=== PATIENT | female | born 1945 | race Caucasian/White ===

== ENCOUNTER → 2021-04-23 15:11 | Outpatient (REF) | payer MEDICARE, OTHER, SELFPAY | LOC: ANHLAB 15:11 | PROVIDERS: Visit Provider Nurse Practitioner | DX: D36.7 Benign neoplasm of other specified sites (principal) | CPT/HCPCS: 88305 ==

== ENCOUNTER → 2021-11-15 11:16 | Outpatient (REF) | payer MEDICARE, OTHER, SELFPAY | LOC: ANHLAB 11:16 | PROVIDERS: Visit Provider Nurse Practitioner | DX: C44.319 Basal cell carcinoma of skin of other parts of face (principal) | CPT/HCPCS: 88305 ==

== ENCOUNTER → 2022-01-07 09:48 | Outpatient (REF) | payer MEDICARE, OTHER, SELFPAY | LOC: ANHLAB 09:48 | PROVIDERS: Visit Provider Nurse Practitioner | DX: C44.319 Basal cell carcinoma of skin of other parts of face (principal) | CPT/HCPCS: 88305; 88331 ==

== ENCOUNTER 2024-10-17 09:45 | Emergency (ER) | payer MEDICARE, OTHER, SELFPAY ==
--- NOTE | ~2024-10-17 | XR_ITS ---
EXAMINATION: XR chest 2V DATE: 10/17/2024 10:30 INDICATION: Upper respiratory infection. TECHNIQUE: Frontal and lateral views of the chest were obtained. COMPARISON: Chest 2 views 10/28/19 FINDINGS: There is no pneumonia, pleural effusion, or pneumothorax. The heart size is normal. IMPRESSION: 1. No acute cardiopulmonary disease. Reviewed, dictated and finalized at location A. RY EXTRACTION WORKER
[2024-10-17 09:49] VITALS: BP 118/78; PULSE 109; RESP 20; TEMP 36.6; O2SAT 95
[2024-10-17 11:07] VITALS: O2SAT 99
[2024-10-17 11:08] VITALS: BP 129/71; PULSE 88; RESP 17; O2SAT 98
[2024-10-17 11:27] LABS: Influenza A QL RT-PCR Negative (Negative); Influenza B QL RT-PCR Negative (Negative); RSV RNA, RT-PCR Negative (Negative); SARS-CoV-2 RNA PCR Negative (Negative)
--- NOTE | 2024-10-17 11:42 | ED.URI ---
HPI - URI/Sore Throat General Chief Complaint: Upper Respiratory Infection Stated Complaint: cough since Friday, Time Seen by Provider: 10/17/24 10:12 Limitations: language barrier History of Present Illness HPI Narrative: 78-year-old female presenting to the emergency department chief complaint of respiratory symptoms for last week. She states about Friday last week she started with a sore throat and nonproductive cough. She out throughout the week having worsening cough, congestion, runny nose. She went to her primary care provider on Friday was prescribed Tessalon Perles without any relief of her cough. She has tried conservative aokb-swm-jvlelbt remedies at home and was even prescribed Medrol Dosepak yesterday by her PCP but has not been able take it yet. She presents today with worsening symptoms and PCP sent her in for evaluation. Denies any shortness a breath or chest pain. No nausea or vomiting. No abdominal pain or back pain. No subjective fever chills. She was otherwise in her normal state of health week before last. Related Data Home Medications ?Medication ?Instructions ?Recorded ?Confirmed ?Last Taken ?Type cholecalciferol (vitamin D3) 25 1,000 unit PO DAILY 09/06/19 11/17/19 11/14/19 History mcg/drop (1,000 unit/drop) oral drops montelukast 10 mg tablet 10 mg PO HS 09/06/19 11/17/19 11/16/19 21:00 History omega-3 fatty acids 1,000 mg 1,000 mg PO HS 09/06/19 11/17/19 11/14/19 History capsule lactobacillus combination no.8 3 3,000 mmu cells PO DAILY 10/28/19 11/17/19 11/14/19 History billion cell capsule (Adult Probiotic) lisinopril 20 mg tablet 20 mg PO HS 10/28/19 11/17/19 11/16/19 21:00 History fexofenadine 60 mg tablet (Oly 60 mg PO Q12H 10/29/19 11/17/19 11/16/19 21:00 History Allergy) ipratropium bromide 21 mcg (0.03 2 spray intranasal ONCE 10/29/19 11/17/19 11/16/19 09:00 History %) nasal spray propylene glycol 0.6 % eye drops 1 drop ophthalmic (eye) DAILY PRN 10/29/19 11/17/19 11/16/19 21:00 History (Systane Balance) Dry Eye(S) brjlhwitgg-bcegszgkcejro-usqv PO PRN 11/15/21 Unknown History Allergies Allergy/AdvReac Type Severity Reaction Status Date / Time No Known Allergies Allergy Unknown Verified 10/17/24 09:52 Review of Systems Review of Systems: As reviewed above in HPI [facility] Past Medical History Medical History Overweight (BMI 25.0-29.9) Arthritis S/p right ELIUD 11/17/2019 Gastroesophageal reflux disease JUAN (obstructive sleep apnea) USES CPAP Dyslipidemia Hypertension AUG [address] CAMPOS 10/29/19 FOR HTN History of basal cell carcinoma (BCC) History of actinic keratoses History of basal cell carcinoma (BCC) of skin Surgical History Surgical History History of total right hip arthroplasty 11/17/2019 Family History Family History Other Family history of malignant neoplasm Social History Social History Smoking status: Unknown if ever smoked Alcohol intake: never Substance use: never Spiritual care concerns: No Agree to blood products: Yes Exam Narrative: GENERAL: [Well-appearing, well-nourished, and in no acute distress.] HEAD: [Normocephalic, atraumatic.] EYES: [PERRLA and EOMI.] ENT: Congested, mucous membranes are moist NECK: Supple. CHEST: [Clear to auscultation. No respiratory distress.] HEART: [Regular rate and rhythm]. No murmur heard. [Normal peripheral pulses.] ABDOMEN: [Soft, nondistended], [nontender], [No rigidity or guarding] EXTREMITIES: Normal range of motion. [No edema.] SKIN: Warm, dry, no rash. NEURO: [No focal deficits]. Alert and oriented [x3.] PSYCH: [Normal mood and affect.] Course Vital Signs Vital signs: Vital Signs Temperature 36.6 C 12/22/24 09:49 Pulse Rate 109 H 10/17/24 09:49 Respiratory Rate 20 10/17/24 09:49 Blood Pressure 118/78 10/17/24 09:49 Pulse Oximetry 95 10/17/24 09:49 Oxygen Delivery Room Air 10/17/24 09:49 Temperature 36.6 C 10/17/24 09:49 Pulse Rate 88 10/17/24 11:08 Respiratory Rate 17 10/17/24 11:08 Blood Pressure 129/71 10/17/24 11:08 Pulse Oximetry 98 10/17/24 11:08 Oxygen Delivery Room Air 10/17/24 11:07 MDM - URI/Sore Throat MDM Narrative Medical decision making narrative: 78-year-old female presenting with persistent URI symptoms for last week. She has tried conservative therapy with vcof-udt-bmyhdos regimens as well as prescription Tessalon Perles and a Medrol Dosepak which she was not able to start yesterday. PCP referred her to the ER for evaluation. She is not hypoxic, otherwise well-appearing on any acute distress but does have some congestion and rhinorrhea. Clear breath sounds throughout, suspicion for pneumonia is low however recent infections throughout the [place] an area consistent with mycoplasma as well as COVID flu influenza are on the rise. Her vital signs reassuring without any tachycardia, fever, hypoxia, tachypnea or blood pressure concerns. Her chest x-ray was independent reviewed I do not see any consolidations, pneumothorax or pneumonia. Confirmed by radiology with no acute cardiopulmonary process and her chest x-ray. COVID flu and RSV swabs were all negative. Given patient's persistent symptoms despite conservative therapies I believe she would benefit from a dose of antibiotics including azithromycin for the next few days in addition to treatments with pseudoephedrine. She is given Sudafed, 500 mg of p.o. azithromycin and Tylenol here in the emergency department will be sent home with a prescription for azithromycin and continued instructions for uzox-plr-nbdnioj remedies for cough suppression in addition to her prescribed medications from her PCP. Encouraged to follow-up with her PCP on a short-term basis or return with any new or worsening concerns at any time. Differential Diagnosis Differential diagnosis: Likely upper respiratory infection, sinusitis, viral infection, bronchitis, influenza, pharyngitis and other Medical Records Attestation: I reviewed the patient's medical records. Lab Data Attestation: I reviewed the patient's lab results. Labs: Lab Results 10/17/24 Range/Units 10:45 Influenza A (RT-PCR) Negative (Negative) Influenza B (RT-PCR) Negative (Negative) RSV (RT-PCR) Negative (Negative) SARS-CoV-2 RNA (RT-PCR) Negative (Negative) Imaging Data Attestation: I personally reviewed and interpreted this imaging study as follows: My impression: No consolidations, pneumonia, pneumothorax or any acute cardiopulmonary process per my interpretation Impressions Chest X-Ray 10/17/24 10:35 IMPRESSION: 1. No acute cardiopulmonary disease. Discharge Plan Discharge Clinical Impression: Bronchitis, Acute upper respiratory infection Patient Disposition: Home, Self-Care Condition: Stable Instructions: Antibiotic Form, Acute Bronchitis (ED), Viral Syndrome (ED), Cold Symptoms (ED) Additional Instructions: Your chest x-ray shows no pneumonia, your COVID fluid RSV swabs are negative. We will have to treat with antibiotics based on her symptoms and lack of improvement after a week. Continue taking your medications as prescribed by her primary care provider in addition to any duqq-pjz-qtrxuvy remedies for cough. We have sent you a prescription for antibiotics. Return with any new or worsening concerns otherwise follow-up with your regular provider. Patient Language: Chinese Prescriptions: New azithromycin [Zithromax TRI-CHAPITO] 500 mg tablet 500 mg PO DAILY 5 Days Qty: 5 0RF No Action montelukast 10 mg tablet 10 mg PO HS omega-3 fatty acids 1,000 mg capsule 1,000 mg PO HS cholecalciferol (vitamin D3) 1,000 unit/drop drops 1,000 unit PO DAILY fexofenadine [Oly Allergy] 60 mg tablet 60 mg PO Q12H ipratropium bromide 0.03 % spray,non-aerosol 2 spray NASAL ONCE Systane Balance 0.6 % drops 1 drop EACH EYE DAILY PRN (Reason: Dry Eye(S)) mlvfxecnah-xknxoqbanrqry-momn PO PRN lisinopril 20 mg Tablet 20 mg PO HS Adult Probiotic 3 billion cell Capsule 3,000 mmu cells PO DAILY polyethylene glycol 3350 [Miralax] 17 gram Powder In Packet 17 g PO QAM Qty: 30 0RF Follow-up/Referrals: PHYSICIAN NOT ON STAFF,NONSTAFF [Primary Care Provider] - Time of Disposition: 11:48
[2024-10-17] MEDS: AZITHROMYCIN 250 MG TABLET 500 MG PO (11:58)
[2024-10-17] MEDS: ACETAMINOPHEN 500 MG TABLET 1000 MG PO (11:58)
[2024-10-17] MEDS: PSEUDOEPHEDRINE HCL 30 MG TABLET PO (11:58)
--- OUTSIDE RECORDS SUMMARY | 2024-10-24 11:46 | XMS_ITS | Clinical Summary ---
Author Organization [facility] Address [address] [facility]. [place], [place] [address] [place] [address] Care Team Providers Care Scout Professional Sports Name Role Phone Joon Lewis Unavailable [phone] Callie Guerrero DO Unavailable [phone] George Osorio MD Unavailable Sergey Ramey Unavailable Jony Pruitt DPM Unavailable Gama Graves MD Unavailable [phone] Ella Hodge [facility] Primary Care Provider [phone] Allergies No known active allergies Medications omega-3 fatty acid 1000 MG capsule Take 1 capsule (1,000 mg total) by mouth 2 (two) times daily. Active vitamin D3, cholecalciferol, 75 MCG (3000 UT) Tab tablet Take 1,000 Units by mouth daily. Active cetirizine 10 MG tablet Take 1 tablet (10 mg total) by mouth daily. Active zinc gluconate 50 MG Tab Take 1 tablet (50 mg total) by mouth daily. Active NON FORMULARY C- pap ; q hs Active meloxicam (MOBIC) 15 MG tablet 4 Active rosuvastatin (CRESTOR) 20 MG tabletIndications:M ixed hyperlipidemia Take 1 tablet (20 mg total) by mouth nightly at bedtime. 90 tablet 3 4 Active lisinopril (PRINIVIL) 20 MG tabletIndications:E ssential hypertension Take 1 tablet (20 mg total) by mouth daily. 90 tablet 3 4 Active famotidine (PEPCID) 20 MG tabletIndications:G astroesophageal reflux disease without esophagitis Take 1 tablet (20 mg total) by mouth 2 (two) times daily. 180 tablet 3 4 Active montelukast (SINGULAIR) 10 MG tabletIndications:C hronic rhinitis Take 1 tablet (10 mg total) by mouth daily. 90 tablet 3 4 Active methylPREDNISolone, CHAPITO, (MEDROL DOSEPAK) 4 MG tabletIndications:V iral URI 6 TABLETS ON DAY ONE, 5 TABLETS DAY TWO, 4 TABLETS DAY THREE, 3 TABLETS DAY FOUR, 2 TABLETS DAY FIVE, AND 1 TABLET DAY SIX 1 each 4 Active Active Problems Problem Noted Date Diagnosed Date Cold intolerance 05/10/2023 History of migraine headaches 09/27/2021 Stage 3a chronic kidney disease ([facility] ) 09/27/2021 Basal cell carcinoma (BCC) of skin of face 06/14 Overview (06/14/2020): Goes to [facility] dermatology in [place] Breast cancer screening by mammogram 04/06/2020 Overview (04/06/2020): Completed 03/30/2020 Next mammogram in 03/2021 Primary osteoarthritis of right hip 02/11/2019 Heartburn 01/19/2019 Cystocele, lateral 02/25/2017 Overview (10/16/2018): Note: pessary replaced 02/04/17 by HEALTHCARE SCIENCE SPECIALIST Date Onset: 05/10/2013 Rectocele 02/25/2017 Overview (10/16/2018): Date Onset: 05/10/2013 Chronic rhinitis 06/18/2016 Overview (10/16/2018): Date Onset: 06/18/2016 Mixed hyperlipidemia 05/18/2012 Vitamin D deficiency 05/18/2012 Diverticula of intestine 12/06/2011 Overview (10/16/2018): Note: Ira: Diverticular Disease Date Onset: 11/2006 Obstructive sleep apnea 12/06/2011 Overview (10/16/2018): Note: [place]: Obstructive sleep apnea/hypopnea Treatment: C-PAP Date Onset: 2004 Osteopenia 12/06/2011 Overview (10/16/2018): Date Onset: 01/2008 Resolved Problems Problem Noted Date Diagnosed Date Resolved Date Bursitis of right hip, unspecified bursa 09/27/2021 05/10/2023 Enthesopathy of wrist 05/29/20212022 Premature menopause 05/10/2013 11/02/19 19 Overview (10/16/2018): Date Onset: 05/10/2013 Breast disorder 12/06/2011 01/19/2019 Overview (10/16/2018): Note: Left breast ADH/atypical duct hyperplasia treated with 5 yrs of Evista, completed in 2010 Date Onset: 02/04/2008 Urticaria 12/06/2011 01/20/2019 Overview (10/16/2018): Note: Tim Date Onset: 06/28/2010 Encounters Date Type Department Care Team Description 10/16/[address] [place] [address] Ella Hodge FNP Cough (Patient call public relations officer service due to cough) 10/12/2024 4:00 PM ENVIRONMENTAL REMEDIATION CONSULTANT Office Visit [address] [place] [address] Ella Hodge FNP Cough (Cough started yesterday, sometimes productive, post nasal drainage, chills, bodyaches) 10/12/2024 Travel 08/31/2024 1:20 PM ENVIRONMENTAL REMEDIATION CONSULTANT Office Visit [address] [place] [address] Ella Hodge, CEMENT CAR DUMPER Cough (Cough not improved. ) 08/31/2024 Travel 08/23/[address] [place] [address] Ella Hodge, CEMENT CAR DUMPER Follow Up Call 08/16/2024 9:00 AM CDT Office Visit [address] [place] [address] Ella Hodge, CEMENT CAR DUMPER Sinus Problem (Sinus drainage, worse in the mornings. No fevers. Was seen in office 08/07/24 for same problem. ) 08/16/2024 Travel 08/12/[address] [place] [address] Ella Hodge CEMENT CAR DUMPER Follow Up Call 08/07/2024 10:00 AM CDT Office Visit [address] [place] [address] Jia Leal, CEMENT CAR DUMPER Sore Throat; Runny Nose; Cough (Symptoms noted for 2 days. ) 08/07/2024 Travel 07/26/[address] [place] [address] Ella Hodge, CEMENT CAR DUMPER Medication from Last 3 Months Immunizations Name Administration Dates Next Due Fluad influenza vaccine, Dawson drivalent (aIIV4), Inactivated, adjuvanted, preservative free, 0.5 mL,IM use 08/25/2023,08/27/2021 Fluzone High Dose (IIV, trivalent, 0.5mL) 2023 Fluzone High Dose - >Age 65 (Prefilled Syringe) 07/27/2022 Influenza Adult (Generic) 08/27/2021 MODERNA COVID-19 (PORTER LUGGAGE NEVAEH DU), MRNA, LNP-S, PF, 50 MCG/ 0.25 ML DOSE 01/03/2022 PFIZER COVID-19 (ORIGINAL FO RMULATION, PURPLE CAP) mRNA, LNP-S, PF, 30 MCG/0.3 ML DOSE 11/10/2022 Pneumococcal (Generic) 06/12/2017 Pneumococcal (Pneumovax 23) 06/12/2017 Shingrix 02/06/2022,09/13/2021 Tdap (Boostrix) 12/12/2015 Family History Medical History Relation Comments Colon Cancer Brother 1 Migraines Daughter TIA Mother Breast Cancer Neg Hx Relation Status Comments Brother 1 Brother 2 Alive Daughter Father Mother Social History Tobacco Use Types Packs/Day Years Used Date Smoking Tobacco: Never Smokeless Tobacco: Never Tobacco Cessation:Counseling Given: No Alcohol Use Standard Drinks/Week Comments No 0 (1 standard drink = 0.6 oz pur e alcohol) AUDIT-C Answer Date Recorded Frequency of Alcohol Consumption Never 10/14/2019 Average Number of Drinks Not on file 019 Frequency of Binge Drinking Not on file 09/26 PHQ-2 Answer Date Recorded Patient Health Questionnaire-2 Score 0 06/22/2024 Comments No Sex and Gender Information Value Date Recorded Sex Assigned at Not on file Legal Sex Female 5:51 PM CDT Gender Identity Not on file Sexual Orientation Not on file Last Filed Vital Signs Vital Sign Reading Time Taken Comments Blood Pressure 118/64 10/12/2024 4:00 PM ENVIRONMENTAL REMEDIATION CONSULTANT Pulse 87 10/12/2024 4:00 PM ENVIRONMENTAL REMEDIATION CONSULTANT Temperature 37.1 ??C (98.8 ??F) 10/12/2024 4:00 PM CS T Respiratory Rate 16 08/31/2024 1:20 PM ENVIRONMENTAL REMEDIATION CONSULTANT Oxygen Saturation 97% 10/12/2024 4:00 PM ENVIRONMENTAL REMEDIATION CONSULTANT Inhaled Oxygen Concentration - - Weight 64.4 kg (142 lb) 10/12/2024 4:00 PM ENVIRONMENTAL REMEDIATION CONSULTANT Height 152.4 cm (5') 10/12/2024 4:00 PM ENVIRONMENTAL REMEDIATION CONSULTANT Body Mass Index 27.73 10/12/2024 4:00 PM ENVIRONMENTAL REMEDIATION CONSULTANT Plan of Treatment Upcoming Encounters Date Type Department Care Team (Late st Contact Info) Description 11/02/2024 8:00 AM ENVIRONMENTAL REMEDIATION CONSULTANT Office Visit [facility] [address] [place] [address] Ella Hodge, [place] [address] [place] [address] 01/19/2025 11:00 AM CDT Office Visit [facility] Pul[facility] - [address] [place] [address] Stanley Jim MD [address] [place] [address] 06/23/2025 8:20 AM CDT Office Visit [facility] [address] [place] [address] Ella Hodge, [facility] [address] [place] [address] Health Maintenance Due Date Last Done Comments Pneumococcal Vaccine: 65+ Years (2 of 2 - PCV) 06/12/2018 06/12/2017 RSV Immunization or 60+ Years (1 - 1-dose 75+ series) 2018 Annual Medicare Wellness Visit 06/15/2022 06/14/2021 COVID-19 Vaccine (2023- season) 2024 11/10/2022, 11/04/2022, 01/03/2022, Additional history exists DTaP, Tdap and Td Vaccines (2 - Td or Tdap) 12/12/2025 12/12/2015 Dexa Scan (General) Completed 11/04/2018 Zoster Vaccines Completed 02/06/2022, 09/13/2021 Influenza Adult Completed 08/31/2024, 07/29, 07/27/2022, Additional history exists Meningococcal Vaccine Aged Out No leslie topher eligible based on patient's age to complete this topic RSV Immunizations Under 20 Months Aged Out No longer eligible based on patient's age to complete this topic Procedures Procedure Name Priority Date/Time Associated Diagnosis Comments CORONAVIRUS (COVID-19) INFLUENZA A & B ANTIGEN IA PANEL Routine 10/12/2024 Acute cough CORONAVIRUS (COVID-19) INFLUENZA A & B ANTIGEN IA PANEL Routine 08/07/2024 Viral URI with cough BONE DENSITY GENERIC (SCAN ORDER) Routine 11/04/2018 from Last 3 Months or Most Recently Relevant to Health Maintenance Results * CORONAVIRUS (COVID-19) INFLUENZA A & B ANTIGEN IA PANEL (10/12/2024) Only the most recent of2 resultswithin the time period is included. CORONAVIRUS ANTIGEN IA NEGATIVE NEGATIVE [facility] (201), [place] INFLUENZA A NEGATIVE NEGATIVE [facility] (201), [place] INFLUENZA B NEGATIVE NEGATIVE [facility] ([facility]), [place] Internal Control: VALID VALID [facility] (201), [place] NASAL STRUCTURE / Unknown 10/12/2024 Ella Hodge CEMENT CAR DUMPER MICROBIOLOGY - GENERAL OR DERABLES Final Result [facility] (201), [address] [address], * BONE DENSITY (11/04/2018) Anatomical Region Laterality Modality Other us Documents Scanned SCANNING Edited Result - Final from Last 3 Months or Most Recently Relevant to Health Maintenance Insurance MEDICARE [facility] Advance Directives Documents on File Type Date Recorded Patient Brake Repairer Hydraulic Expl anation Advance Directives and Living Will 09/28/2021 3:13 PM Advance Directive (Activated) 09/28/2021 3:10 PM POA for Health Care Care Teams Scout Professional Sports Relationship Specialty Start Date End Date Ella Hodge FNP [address] [place] [address] [place] [address] PCP - General NURSE PRACTITIONER 05/09/23 Joon Lewis PA PHYSICIAN TUBE MILL OPERATOR 05/09/21 Callie Guerrero DO Art Studio Teacher OBGYN 06/14/21 [place] [id number] [phone] GASTROENTEROLOGY 06/14/21 Sergey Ramey PA [address] [place] [address] [place] [address] PHYSICIAN TUBE MILL OPERATOR 06/14/21 Jony Pruitt DPM [address] [place] [address], [address] [place] [address] Referring Physician PODIATRY/SURGERY 06/14/21 [place] [address] [place] [address] ORTHOPAEDIC SURGERY 06/14/21
--- OUTSIDE RECORDS SUMMARY | 2024-10-24 11:48 | XMS_ITS | Encounter Summary ---
Author Organization [facility] Address [facility]. [place], [place] [id number] [place] [address] Care Team Providers Care Pearl Digger Name Role Phone Joon Lewis Unavailable [phone] Callie Guerrero DO Unavailable [phone] George Osorio MD Unavailable Sergey Ramey Unavailable [phone] Jony Pruitt DPM Unavailable [phone] Gama Graves MD Unavailable [phone] Ella Hodge STUDENT DEVELOPMENT DEAN Primary Care Provider [phone] Encounter Details Date Type Department Care Team (Latest Contact Info) Description 10/12/2024 Travel Social History Tobacco Use Types Packs/Day Years Used Date Smoking Tobacco: Never Smokeless Tobacco: Never Alcohol Use Standard Drinks/Week Comments No 0 [...] on file Sexual Orientation Not on file documented as of this encounter Plan of Treatment Upcoming Encounters Date Type Department Care Team (Late st Contact Info) Description 11/02/2024 8:00 AM CONSULTING SYSTEMS ENGINEER Office Visit [address] [place] [address] Ella Hodge FNP [address] [place] [address] 01/19/2025 11:00 AM CDT Office Visit [facility] Pul[facility] Specialty [facility] - [place] [address] [place] [address] Stanley Jim MD [address] [place] [address] 06/23/2025 8:20 AM CDT Office Visit [address] [place] [address] Ella Hodge FNP [address] [place] [address] documented as of this encounter Visit Diagnoses Not on filedocumented in this encounter Additional Health Concerns Infection Onset Date Last Indicated Resolved Time COVID-19 Rule Out 10/12/2024 10/12/2024 10/14/2024 2:16 PM CONSULTING SYSTEMS ENGINEER Assessment Noted Time PHQ-9 Depression Total Score: 0 05/09/20 10:49 AM CDT documented as of this encounter Care Teams Pearl Digger Relationship Specialty Start Date End Date Ella Hodge FNP [address] [place] [address] PCP - General NURSE PRACTITIONER 05/09/23 Joon Lewis PA PHYSICIAN IRON PILER 05/09/21 Callie Guerrero DO Dobby Loom Fixer OBGYN 06/14/21 [place] [address] [address] GASTROENTEROLOGY 06/14/21 Sergey Ramey PA [address] [place] [address] PHYSICIAN IRON PILER 06/14/[address] [facility], [address] [place] [address] Referring Physician PODIATRY/SURGERY 06/14/21 [place] [address] [place] [address] ORTHOPAEDIC SURGERY 06/14/21 documented as of this encounter
--- OUTSIDE RECORDS SUMMARY | 2024-10-24 11:48 | XMS_ITS | Encounter Summary ---
Author Organization [facility] Address [facility]. [place], [place] [address] [place] [address] Care Team Providers Care Dairy Manufacturing Technologist Name Role Phone Joon Lewis Unavailable [phone] Callie Guerrero DO Unavailable [phone] George Osorio MD Unavailable Sergey Ramey Unavailable Jony Pruitt DPArthur Unavailable Gama Graves MD Unavailable [phone] Ella Hodge [facility] Primary Care Provider [phone] Reason for Visit * Reason Comments Cough Cough not improved. Encounter Details Date Type Department Care Team (Late st Contact Info) Description 08/31/2024 1:20 PM STEEPING PRESS TENDER Office Visit [address] [place] [address] [facility] [address] [place] [address] Cough (Cough not improved. ) Social History Tobacco Use Types Packs/Day Years [...] on file documented as of this encounter Last Filed Vital Signs Vital Sign Reading Time Taken Comments Blood Pressure 143/70 08/31/2024 1:20 PM STEEPING PRESS TENDER Pulse 82 08/31/2024 1:20 PM STEEPING PRESS TENDER Temperature 37.3 ??C (99.1 ??F) 08/31/2024 1:20 PM CS T Respiratory Rate 16 08/31/2024 1:20 PM STEEPING PRESS TENDER Oxygen Saturation 99% 08/31/2024 1:20 PM STEEPING PRESS TENDER Inhaled Oxygen Concentration - - Weight 65.3 kg (144 lb) 08/31/2024 1:20 PM STEEPING PRESS TENDER Height 152.4 cm (5') 08/31/2024 1:20 PM STEEPING PRESS TENDER Body Mass Index 28.12 08/31/2024 1:20 PM STEEPING PRESS TENDER documented in this encounter Patient Instructions * Patient Instructions* THEODORA Head - 08/31/2024 1:20 PM STEEPING PRESS TENDER Consider RSV (Arexvy) and Pneumonia (Prevnar 20) vaccines. You may get these vaccines at local pharmacy or health department. Follow up with dentist as planned. Schedule colonoscopy. PING PRESS TENDER * Attachments The following attachments cannot be sent through Care Everywhere. * Pneumococcal Conjugate (PCV) Vaccine CDC Vaccine Information Statement (VIS) ([place]) * RSV (Respiratory Syncytial Virus) Vaccine CDC Vaccine Information Statement (VIS) ([place]) documented in this encounter Progress Notes * THEODORA Head - 08/31/2024 1:20 PM CST Love Catherine is a 78-year-old female patient. Reason for Visit: Cough (Cough not improved. ) History of Present Illness: Here to follow up for recent URI. She states she is feeling much better today. Cough has resolved. Dental pain has resolved. She is not having any fever. She states she has some dental sensitivity and recently had a filling to left upper side. States she did not require root canal. She states dentist told her to use sensodyne which has helped. Also questions if she needs to continue with colonoscopy. She is due for colonoscopy due to historyof colon polyps, GI recommends them every 2-3 years for her. She states she always needs polyps removed. Her biggest issue with colonoscopy is the preparation, she has difficulty tolerating the prep. She would like flu vaccine. ROS: Except as noted in HPI, 10 point review of systems was completed and otherwise unremarkable or noncontributory to chief complaint. Medications: Current Outpatient Medications: cetirizine 10 MG tablet, Take 1 tablet (10 mg total) by mouth daily., Disp: , Rfl: famotidine (PEPCID) 20 MG tablet, Take 1 tablet (20 mg total) by mouth 2 (two) times daily., Disp: 180 tablet, Rfl: 3 lisinopril (PRINIVIL) 20 MG tablet, Take 1 tablet (20 mg total) by mouth daily., Disp: 90 tablet, Rfl: 3 meloxicam (MOBIC) 15 MG tablet, , Disp: , Rfl: montelukast (SINGULAIR) 10 MG tablet, Take 1 tablet (10 mg total) by mouth daily., Disp: 90 tablet,Rfl: 3 NON FORMULARY, C- pap ; q hs, Disp: , Rfl: omega-3 fatty acid 1000 MG capsule, Take 1 capsule (1,000 mg total) by mouth 2 (two) times daily., Disp: , Rfl: rosuvastatin (CRESTOR) 20 MG tablet, Take 1 tablet (20 mg total) by mouth nightly at bedtime., Disp: 90 tablet, Rfl: 3 vitamin D3, cholecalciferol, 75 MCG (3000 UT) Tab tablet, Take 1,000 Units by mouth daily., Disp: ,Rfl: zinc gluconate 50 MG Tab, Take 1 tablet (50 mg total) by mouth daily., Disp: , Rfl: Review of patient's allergies indicates: No Known Allergies Past Medical History: Diagnosis Date Allergic rhinitis Bursitis of right hip, unspecified bursa 09/27/2021 Enthesopathy of wrist 05/29/2021 Heartburn Hip pain Hypertension Past Surgical History: Procedure Laterality Date BREAST BIOPSY COLONOSCOPY STOMA DX INCLUDING COLLJ SPEC SPX FOOT SURGERY Left 03/14/2021 dr jony pruitt THROAT SURGERY PROCEDURE UNLISTED TOTAL HIP ARTHROPLASTY Right 11/17/2019 Social History Tobacco Use Smoking status: Never Smokeless tobacco: Never Vaping Use Vaping status: Never Used Substance Use Topics Alcohol use: No Drug use: No Family History Problem Relation Name Age of Onset Other (TIA) Mother Colon Cancer Brother Migraines Daughter Breast Cancer Neg Hx Family Status Relation Name Status Mother Father Brother Brother Alive Daughter (Not Specified) Neg Hx (Not Specified) No partnership data on file Filed Vitals: 08/31/24 1320 BP: (!) 143/70 Pulse: 82 Resp: 16 Temp: 99.1 ??F (37.3 ??C) TempSrc: Tympanic SpO2: 99% Weight: 65.3 kg (144 lb) Height: 1.524 m (5') Body mass index is 28.12 kg/m??. Physical Exam: Physical Exam Constitutional: Appearance: Normal appearance. She is not ill-appearing. HENT: Head: Normocephalic. Right Ear: Tympanic membrane, ear canal and external ear normal. Left Ear: Tympanic membrane, ear canal and external ear normal. Mouth/Throat: Mouth: Mucous membranes are moist. Cardiovascular: Rate and Rhythm: Normal rate and regular rhythm. Heart sounds: Normal heart sounds. Pulmonary: Effort: Pulmonary effort is normal. Breath sounds: Normal breath sounds. Skin: General: Skin is warm and dry. Neurological: General: No focal deficit present. Mental Status: She is alert and oriented to person, place, and time. Psychiatric: Mood and Affect: Mood normal. Behavior: Behavior normal. Thought Content: Thought content normal. Judgment: Judgment normal. Diagnoses/Impression: Encounter Diagnose(s) ICD-10-CM SNOMED CT(R) 1. Sinusitis, unspecified chronicity, unspecified location Resolved J32.9 SINUSITIS 2. Need for immunization against influenza Z23 NEEDS INFLUENZA IMMUNIZATION [96993] Flu Vaccine, Split Virus, High Dose 65+ Years 3. History of colon polyps Z86.0100 HISTORY OF POLYP OF COLON 4. Pain, dental Resolved K08.89 TOOTHACHE Recommendations and Plan: sinus and dental symptoms are resolved with treatment. We discussed life expectancy and need for additional colonoscopy. She is a very active 78 year old and discussed she likely has a higher life expectancy than average. Discussed risks related to reoccurring colon polypsand cancer. She states she will likely complete colonoscopy in early 2024. Discussed need for flu vaccine. Patient Instructions Consider RSV (Arexvy) and Pneumonia (Prevnar 20) vaccines. You may get these vaccines at local pharmacy or health department. Follow up with dentist as planned. Schedule colonoscopy. THEODORA HEAD Cosigned by Ziggy Harding MD at 09/02/2024 8:56 AM STEEPING PRESS TENDER PING PRESS TENDER PING PRESS TENDER documented in this encounter Plan of Treatment Upcoming Encounters Date Type Department Care Team (Late st Contact Info) Description 11/02/2024 8:00 AM STEEPING PRESS TENDER Office Visit [address] [place] [address] Ella Hodge FNP 201 [facility] [place] [address] 01/19/2025 11:00 AM CDT Office Visit [facility] [address] [place] [address] Stanley Jim MD [address] [place] [address] 06/23/2025 8:20 AM CDT Office Visit [address] [place] [address] Ella Hodge FNP [address] [facility] [place] [address] documented as of this encounter Visit Diagnoses Diagnosis Sinusitis, unspecified chronicity, unspecified location- Primary Need for immunization against influenza Need for prophylactic vaccination and inoculation against influenza History of colon polyps Personal history of colonic polyps Pain, dental Unspecified disorder of the teeth and supporting structures documented in this encounter Additional Health Concerns Assessment Noted Time PHQ-9 Depression Total Score: 0 05/09/20 23 10:49 AM CDT documented as of this encounter Care Teams Dairy Manufacturing Technologist Relationship Specialty Start Date End Date Ella Hodge FNP [facility] [place] [address] PCP - General NURSE PRACTITIONER 05/09/23 Joon Lewis PA PHYSICIAN VICE PRESIDENT PROCESS 05/09/21 Callie Guerrero DO Hydroelectric Machinery Mechanic Helper OBGYN 06/14/21 [place] [address] [phone] GASTROENTEROLOGY 06/14/21 Sergey Ramey PA [address] [place] [address] [place] [address] PHYSICIAN VICE PRESIDENT PROCESS 06/14/21 Jony Pruitt DPM [address] [place] [address], [address] [place] [address] Referring Physician PODIATRY/SURGERY 06/14/21 [place] [address] [place], [place] [id number] ORTHOPAEDIC SURGERY 06/14/21 documented as of this encounter
--- OUTSIDE RECORDS SUMMARY | 2024-10-24 11:48 | XMS_ITS | Encounter Summary ---
Author Organization [facility] Address [facility]6 [facility]. [place], [place] [address] [place] [address] Care Team Providers Care Battery Tester And Repairer Name Role Phone Joon Lewis Unavailable [phone] Callie Guerrero DO Unavailable [phone] George Osroio MD Unavailable Sergey Ramey Unavailable [phone] Jony Pruitt DPM Unavailable [phone] Gama Graves MD Unavailable [phone] [facility] Primary Care Provider [phone] Reason for Visit * Reason Comments Sore Throat Runny Nose Cough Symptoms noted for 2 days. Encounter Details Date Type Department Care Team (Late st Contact Info) Description 08/07/2024 10:00 AM CDT Office Visit [address] [place] [address] Jia Leal, [place] [address] [place] [address] Sore Throat; Runny Nose; Cough (Symptoms noted for 2 days. ) Social History Tobacco Use Types Packs/Day [...] Sign Reading Time Taken Comments Blood Pressure 123/66 08/07/2024 9:59 AM CDT Pulse 78 08/07/2024 9:59 AM CDT Temperature 36.9 ??C (98.4 ??F) 08/07/2024 9:59 AM CD T Respiratory Rate 16 08/07/2024 9:59 AM CDT Oxygen Saturation 99% 08/07/2024 9:59 AM CDT Inhaled Oxygen Concentration - - Weight 64.4 kg (142 lb) 08/07/2024 9:59 AM CDT Height 152.4 cm (5') 08/07/2024 9:59 AM CDT Body Mass Index 27.73 08/07/2024 9:59 AM CDT documented in this encounter Patient Instructions * Patient Instructions* THEODORA Diaz - 08/07/2024 10:00 AM CDT Get plenty of rest. Increase fluid intake Use plain Mucinex as needed for cough and congestion Take OTC tylenol as needed as directed for fever/ aches. Call in a few days if not improving or if any new or worsening symptoms develop documented in this encounter Progress Notes * THEODORA Diaz - 08/07/2024 10:00 AM CDT Love is a 78-year-old female patient. Reason for Visit: Sore Throat, Runny Nose, and Cough (Symptoms noted for 2 days. ) History of Present Illness: Rosario molina is an 78-year-old female patient here for URI symptoms Onset 2 days ago with sore throat, congestion, cough and clear nasal drainage. Denies having any fever chills or bodyaches. No shortness of breath weakness or chest pain. No GI symptoms. She has not taken anything for symptom relief. She wanted to make sure she does not have COVID because she will be around her young grandson. Past Medical History: Diagnosis Date Allergic rhinitis Bursitis of right hip, unspecified bursa 09/27/2021 Enthesopathy of wrist 05/29/2021 Heartburn Hip pain Hypertension Past Surgical History: Procedure Laterality Date BREAST BIOPSY COLONOSCOPY STOMA DX INCLUDING COLLJ SPEC SPX FOOT SURGERY Left 03/14/2021 dr jony pruitt THROAT SURGERY PROCEDURE UNLISTED TOTAL HIP ARTHROPLASTY Right 11/17/2019 Medications: Current Outpatient Medications: cetirizine 10 MG [...] total) by mouth daily., Disp: , Rfl: IPRATROPIUM 0.03 % nasal spray, USE 2 SPRAYS INTO EACH NOSTRIL EVERY 12 HOURS (Patient not taking: Reported on 08/07/2024), Disp: 30 mL, Rfl: 0 No Known Allergies Family History Problem Relation Name Age of Onset Other (TIA) Mother Colon Cancer Brother Migraines Daughter Breast Cancer Neg Hx Family Status Relation Name Status Mother Father Brother Brother Alive Daughter (Not Specified) Neg Hx (Not Specified) No partnership data on file Social History Socioeconomic History Marital status: Tobacco Use Smoking status: Never Smokeless tobacco: Never Vaping Use Vaping status: Never Used Substance and Sexual Activity Alcohol use: No Drug use: No ROS: Review of Systems Constitutional: Negative for chills, fever and malaise/fatigue. HENT: Positive for congestion and sore throat. Clear nasal drainage Respiratory: Positive for cough. Negative for sputum production, shortness of breath and wheezing. Cardiovascular: Negative for chest pain and orthopnea. Neurological: Negative for dizziness and headaches. Vitals: Filed Vitals: 08/07/24 0959 BP: 123/66 Pulse: 78 Resp: 16 Temp: 98.4 ??F (36.9 ??C) TempSrc: Tympanic SpO2: 99% Weight: 64.4 kg (142 lb) Height: 1.524 m (5') Physical Exam Constitutional: Comments: Elderly female patient in no distress HENT: Head: Normocephalic and atraumatic. Right Ear: Tympanic membrane, ear canal and external ear normal. Left Ear: Tympanic membrane, ear canal and external ear normal. Nose: Congestion and rhinorrhea (Clear nasal drainage present) present. Mouth/Throat: Mouth: Mucous membranes are moist. Pharynx: Oropharynx is clear. Eyes: Conjunctiva/sclera: Conjunctivae normal. Cardiovascular: Rate and Rhythm: Normal rate and regular rhythm. Pulmonary: Effort: Pulmonary effort is normal. Breath sounds: Normal breath sounds. Musculoskeletal: Cervical back: Neck supple. Skin: General: Skin is warm and dry. Neurological: Mental Status: She is alert and oriented to person, place, and time. Psychiatric: Mood and Affect: Mood normal. Results: Covid negative Influenza negative Diagnoses/Impression: Encounter Diagnose(s) ICD-10-CM SNOMED CT(R) 1. Viral URI with cough J06.9 VIRAL UPPER RESPIRATORY TRACT INFECTION CORONAVIRUS (COVID-19) INFLUENZA A & B ANTIGEN IA PANEL Plan Orders Placed: Orders Placed This Encounter CORONAVIRUS (COVID-19) INFLUENZA A & B ANTIGEN IA PANEL COVID and flu testing negative Discussed symptomatic treatment of viral URI. Push oral fluids and rest Tylenol as needed for achiness, headache, if fever develops Mucinex/Robitussin as needed for cough and congestion Call back if any new or worsening symptoms develop Instructions Patient Instructions Get plenty of rest. Increase fluid intake Use plain Mucinex as needed for cough and congestion Take OTC tylenol as needed as directed for fever/ aches. Call in a few days if not improving or if any new or worsening symptoms develop THEODORA DIAZ 08/07/2024 10:02 AM documented in this encounter Plan of Treatment Upcoming Encounters Date Type Department Care Team (Late st Contact Info) Description 11/02/2024 8:00 AM ENGINE INSPECTOR Office Visit [address] [place] [address] Ella Hodge FNP [address] [place] [address] [place] [address] 01/19/2025 11:00 AM CDT Office Visit [facility] [address] [place] [address] Stanley Jim MD [address] [place] [address] 06/23/2025 8:20 AM CDT Office Visit [address] [place] [address] Ella Hodge FNP [address] [place] [address] [place] [address] documented as of this encounter Procedures Procedure Name Priority Date/Time Associated Diagnosis Comments CORONAVIRUS (COVID-19) INFLUENZA A & B ANTIGEN IA PANEL Routine 08/07/2024 Viral URI with cough documented in this encounter Results * CORONAVIRUS (COVID-19) INFLUENZA A & B ANTIGEN IA PANEL (08/07/2024) CORONAVIRUS ANTIGEN IA NEGATIVE NEGATIVE [facility] (201), [place] INFLUENZA A NEGATIVE NEGATIVE [facility] (201), [place] INFLUENZA B NEGATIVE NEGATIVE [facility] (201), [place] Internal Control: VALID VALID [facility] (201), [place] NASAL STRUCTURE / Unknown 08/07/2024 us Jia GORMANP MICROBIOLOGY - GENERAL ORDERA BLES Final Result [facility] (), [place] [address], documented in this encounter Visit Diagnoses Diagnosis Viral URI with cough- Primary Acute upper respiratory infections of unspecified site documented in this encounter Additional Health Concerns Infection Onset Date Last Indicated Resolved Time COVID-19 Rule Out 08/07/2024 08/07/2024 08/09/2024 9:34 AM CDT Assessment Noted Time PHQ-9 Depression Total Score: 0 05/09/20 23 10:49 AM CDT documented as of this encounter Care Teams Battery Tester And Repairer Relationship Specialty Start Date End Date Ella Hodge FNP [address] [place] [address] PCP - General NURSE PRACTITIONER 05/09/23 Joon Lewis PA PHYSICIAN SHEETFED PRESS OPERATOR 05/09/21 Callie Guerrero DO Furnace Setter OBGYN 06/14/21 [place] [address] [id number] GASTROENTEROLOGY 06/14/21 Sergey Ramey PA [address] [place] [address] [place] [address] PHYSICIAN SHEETFED PRESS OPERATOR 06/14/21 Jony Pruitt DPM [address] [place] [address], [address] [place] [address] Referring Physician PODIATRY/SURGERY 06/14/21 [place] [address] [place] [address] ORTHOPAEDIC SURGERY 06/14/21 documented as of this encounter
--- OUTSIDE RECORDS SUMMARY | 2024-10-24 11:48 | XMS_ITS | Encounter Summary ---
Author Organization [facility] Address [facility]. [place], [place] [address] [place] [address] Care Team Providers Care Security Police Name Role Phone Joon Lewis Unavailable [phone] Callie Guerrero DO Unavailable [phone] George Osorio MD Unavailable Sergey Ramey Unavailable [phone] Jony Pruitt DPM Unavailable [phone] Gama Graves MD Unavailable [phone] Ella Hodge PHOTOGRAPHIC EDITOR Primary Care Provider [phone] Encounter Details Date Type Department Care Team (Latest Contact Info) Description 08/07/2024 Travel Social History Tobacco Use Types Packs/Day [...] st Contact Info) Description 11/02/2024 8:00 AM CONSUMER LOAN SPECIALIST Office Visit [address] [place] [address] Ella Hodge FNP 201 [facility] [place] [address] 01/19/2025 11:00 AM CDT Office Visit [facility] [place] [address] [facility] [place] [address] Stanley Jim MD [address] [place] [address] 06/23/2025 8:20 AM CDT Office Visit [address] [place] [address] Ella Hodge FNP [address] [facility] [place] [address] documented as of this encounter Visit Diagnoses Not on filedocumented in this encounter Additional Health Concerns Infection Onset Date Last Indicated Resolved Time COVID-19 Rule Out 08/07/2024 08/07/2024 08/09/2024 9:34 AM CDT Assessment Noted Time PHQ-9 Depression Total Score: 0 05/09/20 10:49 AM CDT documented as of this encounter Care Teams Security Police Relationship Specialty Start Date End Date Ella Hodge FNP [address] [place] [address] PCP - General NURSE PRACTITIONER 05/09/23 Joon Lewis PA PHYSICIAN MASTER FIRE CONTROL TECHNICIAN 05/09/21 Callie Guerrero DO Chimney Mechanic OBGYN 06/14/21 [place] [address] Marco A Wiseman [address] [address] GASTROENTEROLOGY 06/14/21 Sergey Ramey PA [address] [place] [address] PHYSICIAN MASTER FIRE CONTROL TECHNICIAN 06/14/21 Jony Pruitt DPM [address] [place] [address], [address] [place] [address] Referring Physician PODIATRY/SURGERY 06/14/21 [place] [address] [place] [address] ORTHOPAEDIC SURGERY 06/14/21 documented as of this encounter
--- OUTSIDE RECORDS SUMMARY | 2024-10-24 11:48 | XMS_ITS | Encounter Summary ---
Author Organization [facility] Address [facility] [place], [place] [address] [place] [address] Care Team Providers Care Cotton Farmer Name Role Phone Joon Lewis Unavailable [phone] Callie Guerrero DO Unavailable [phone] George Osorio MD Unavailable Sergey Ramey Unavailable [phone] Jony Pruitt DPM Unavailable [phone] Gama Graves MD Unavailable [phone] Ella Hodge SUPERVISOR BELT AND LINK ASSEMBLY Primary Care Provider [phone] Encounter Details Date Type Department Care Team (Late st Contact Info) Description 06/24/2024 Orders Only [facility] [address] [place], [place] [id number] Dagmar Plunkett MA Social History Tobacco Use Types Packs/Day Years [...] st Contact Info) Description 11/02/2024 8:00 AM CARPENTER REPAIRER Office Visit [facility] [address] [facility] [place] [address] Ella Hodge FNP 201 [facility] [place] [address] 01/19/2025 11:00 AM CDT Office Visit [facility] Pul[facility]ology [facility]ty [facility] - [address] [place] [address] Stanley Jim MD [address] [place] [address] 06/23/2025 8:20 AM CDT Office Visit [facility] 201 [facility] [place] [address] Ella Hodge FNP [address] [place] [address] [place] [address] documented as of this encounter Results * IRON SAT PANEL (IRON,IBC,%SAT) (06/23/2024 7:57 AM CDT) IRON 71 50.0 - 170.0 MCG/DL 06/24/2024 3:28 PM CDT [facility] IRON BINDING CAPACITY 352 250 - 450 MCG/DL 06/24/2024 3:28 PM CDT [facility] IRON SATURATION 20 20 - 55 % 3:28 PM CDT [facility] 06/23/2024 7:57 AM CDT Ella Rodriguezrie SUPERVISOR BELT AND LINK ASSEMBLY LABORATORY Final Res ult Performing Organization Address City/[facility]/ZIP Co de Phone Number [facility] [address] [place] [address], * FERRITIN (06/23/2024 7:57 AM CDT) FERRITIN 95.7 8.0 - 388.0 NG/ML 06/24/2024 3:28 PM CDT [facility] 06/23/2024 7:57 AM CDT Ella A Naveen SUPERVISOR BELT AND LINK ASSEMBLY LABORATORY Final Res ult Performing Organization Address City/[facility] Co de Phone Number [facility] [address] [place] [address], documented in this encounter Visit Diagnoses Diagnosis Low hemoglobin- Primary Anemia, unspecified Abnormal laboratory test Other abnormal clinical finding documented in this encounter Additional Health Concerns Assessment Noted Time PHQ-9 Depression Total Score: 0 05/09/20 23 10:49 AM CDT documented as of this encounter Care Teams Cotton Farmer Relationship Specialty Start Date End Date Ella Hodge FNP [address] [place] [address] [place] [address] PCP - General NURSE PRACTITIONER 05/09/23 Joon Lewis PA PHYSICIAN PHARMACY HELPER 05/09/21 Callie Guerrero DO Garment Tag Stringer OBGYN 06/14/21 [place] [address] [address] GASTROENTEROLOGY 06/14/21 Sergey Ramey PA [address] [place] [address] [place] [address] PHYSICIAN PHARMACY HELPER 06/14/21 Jony Pruitt DPM [address] [place] [address], [address] [place] [address] Referring Physician PODIATRY/SURGERY 06/14/21 [place] [address] [place] [address] ORTHOPAEDIC SURGERY 06/14/21 documented as of this encounter
--- OUTSIDE RECORDS SUMMARY | 2024-10-24 11:48 | XMS_ITS | Encounter Summary ---
Author Organization [facility] Address [facility]. [place], [place] [address] [place] [address] Care Team Providers Care Retort Furnace Helper Name Role Phone Joon Lewis Unavailable [phone] Callie Guerrero DO Unavailable [phone] George Osorio MD Unavailable Sergey Ramey Unavailable Jony Pruitt DPM Unavailable [phone] Gama Graves MD Unavailable [phone] Ella Hodge [facility] Primary Care Provider [phone] Reason for Visit * Reason Onset Date Comments Follow Up Call 08/23/2024 Encounter Details Date Type Department Care Team (Late st Contact Info) Description 08/23/2024 Telephone [place] [address] [place] [address] Ella Hodge [facility] [address] [place] [address] Follow Up Call Social History Tobacco Use Types Packs/Day Years [...] on file documented as of this encounter Progress Notes * Julia العراقي LPN - 08/23/2024 4:14 PM CDT Pt aware and voiced understanding. * THEODORA Kendall - 08/23/2024 4:12 PM CDT Noted. For now rest and hydrate. She can be seen in the office for reevaluation at her convenience. * Cora Aguila - 08/23/2024 1:31 PM CDT Patient called said she did a at home covid test she said it was Negative please return her call * Julia العراقي LPN - 08/23/2024 12:50 PM CDT Pt aware and voiced understanding. Pt states had a tooth ache just 1 day. Pt has a Covid kit at home and will test self and call back with result. * THEODORA Kendall - 08/23/2024 10:40 AM CDT Sounds like she may have picked up a new illness. Has she been around any new sick people? I definitely don't want her driving if she doesn't feel well. I would have her focus on hydration today and rest. Does she continue to have dental pain? Is she able to test herself for COVID at home? * Julia العراقي LPN - 08/23/2024 9:49 AM CDT Pt called and left a message asking nurse return her call. Pt states she completed Medrol dose packand has a few days of antibiotics left. States was feeling better mid week but by croupy cough, sinus congestion with thick yellow sinus drainage, hasn't checked temp, but has been having chills and sweats. Pt hd sched a 10 am appt for f/u but stated she developed diarrhea x 2 this am and had blown her nose hard and got dizzy so she cancelled appt, didn't think she should drive herself to town for appt, in r she would get dizzy again. Pt stated only has had dizziness that one time since. Pt stated no chest congestion and no SOB. documented in this encounter Plan of Treatment Upcoming Encounters Date Type Department Care Team (Late st Contact Info) Description 11/02/2024 8:00 AM R D INTERN Office Visit [address] [place] [address] Ella Hodge FNP 201 [facility] [place] [address] 01/19/2025 11:00 AM CDT Office Visit [facility] [place] 200 [facility] [place] [address] Stanley Jim MD [address] [place] [address] 06/23/2025 8:20 AM CDT Office Visit [address] [place] [address] Ella Hodge FNP [address] [place] [address] documented as of this encounter Visit Diagnoses Not on filedocumented in this encounter Additional Health Concerns Assessment Noted Time PHQ-9 Depression Total Score: 0 05/09/20 10:49 AM CDT documented as of this encounter Care Teams Retort Furnace Helper Relationship Specialty Start Date End Date Ella Hodge FNP [address] [place] [address] PCP - General NURSE PRACTITIONER 05/09/23 Joon Lewis PA PHYSICIAN IT HELP DESK TECHNICIAN 05/09/21 Callie Guerrero DO [facility] 06/14/21 [place] [id number] [id number] GASTROENTEROLOGY 06/14/21 Sergey Ramey PA [address] [place] [address] [place] [address] PHYSICIAN IT HELP DESK TECHNICIAN 06/14/21 Jony Pruitt, DPM [facility]0 [facility], [address] [place] [address] Referring Physician PODIATRY/SURGERY 06/14/21 [place] [address] [place] [address] ORTHOPAEDIC SURGERY 06/14/21 documented as of this encounter
--- OUTSIDE RECORDS SUMMARY | 2024-10-24 11:48 | XMS_ITS | Encounter Summary ---
Author Organization [facility] Address [facility]6 [facility]. [place], [place] [address] [place] [address] Care Team Providers Care Campus Recruiting Internship Name Role Phone Joon Lewis Unavailable [phone] Callie Guerrero DO Unavailable [phone] George Osorio MD Unavailable Sergey Ramey Unavailable Jony Pruitt DPArthur Unavailable Gama Graves MD Unavailable [phone] Ella HodgeP Primary Care Provider [phone] Encounter Details Date Type Department Care Team (Late st Contact Info) Description 06/23/2024 7:55 AM CDT - 06/23/2024 11:59 PM CDT Hospital Encounter [facility] [address] [place], [place] [id number] Ella Hodge FNP [address] [place] [address] Discharge Disposition: Home or Self Care (Routine Discharge) Social History Tobacco Use Types Packs/Day Years [...] on file documented as of this encounter Medications at Time of Discharge cetirizine 10 MG tablet Take 1 tablet (10 mg total) by mouth daily. famotidine (PEPCID) 20 MG tabletIndications:Ga stroesophageal reflux disease without esophagitis Take 1 tablet (20 mg total) by mouth 2 (two) times daily. 180 tablet 3 06/22/2024 lisinopril (PRINIVIL) 20 MG tabletIndications:Es sential hypertension Take 1 tablet (20 mg total) by mouth daily. 90 tablet 3 06/22/2024 meloxicam (MOBIC) 15 MG tablet 06/21/2024 NON FORMULARY C- pap ; q hs omega-3 fatty acid 1000 MG capsule Take 1 capsule (1,000 mg total) by mouth 2 (two) times daily. rosuvastatin (CRESTOR) 20 MG tabletIndications:Mi xed hyperlipidemia Take 1 tablet (20 mg total) by mouth nightly at bedtime. 90 tablet 3 06/22/2024 vitamin D3, cholecalciferol, 75 MCG (3000 UT) Tab tablet Take 1,000 Units by mouth daily. zinc gluconate 50 MG Tab Take 1 tablet (50 mg total) by mouth daily. IPRATROPIUM 0.03 % nasal sprayIndications:Art al congestion USE 2 SPRAYS INTO EACH NOSTRIL EVERY 12 HOURS 30 mL 10/22/2021 4 montelukast (SINGULAIR) 10 MG tabletIndications:Ch ronic rhinitis take 1 tablet by mouth every day 90 tablet 1 01/28/2024 4 documented as of this encounter Plan of Treatment Upcoming Encounters Date Type Department Care Team (Late st Contact Info) Description 11/02/2024 8:00 AM CARRIAGE RIDER Office Visit [address] [place] [address] Ella Hodge [facility] 201 [facility] [place] [address] 01/19/2025 11:00 AM CDT Office Visit [facility] - [address] [place] [address] Stanley Jim MD [address] [place] [address] 06/23/2025 8:20 AM CDT Office Visit [facility] 201 [facility] [place] [address] Ella Hodge [facility] 201 [facility] [place] [address] documented as of this encounter Procedures Procedure Name Priority Date/Time Associated Diagnosis Comments IRON SAT PANEL (IRON,IBC,%SAT) Routine 06/23/2024 7:57 AM CDT Low hemoglobin VITAMIN B-12 Routine 06/23/2024 7:57 AM CDT Chronic fatigue COMPREHENSIVE METABOLIC PANEL Routine 06/23/2024 7:57 AM CDT Essential hypertension LIPID PANEL Routine 06/23/2024 7:57 AM CDT Mixed hyperlipidemia CBC W/DIFF AUTOMATED Routine 06/23/2024 7:57 AM CDT Essential hypertension THYROID STIM HORMONE TSH Routine 06/23/2024 7:57 AM CDT Chronic fatigue MAGNESIUM Routine 06/23/2024 7:57 AM CDT Chronic fatigue FERRITIN Routine 06/23/2024 7:57 AM CDT Low hemoglobin documented in this encounter Results * IRON SAT PANEL (IRON,IBC,%SAT) (06/23/2024 7:57 AM CDT) IRON 71 50.0 - 170.0 MCG/DL 06/24/2024 3:28 PM CDT [facility] IRON BINDING CAPACITY 352 250 - 450 MCG/DL 06/24/2024 3:28 PM CDT [facility] IRON SATURATION 20 20 - 55 % 3:28 PM CDT [facility] 06/23/2024 7:57 AM CDT [facility] LABORATORY Final Res ult Performing Organization Address [facility]/ZIP Co de Phone Number [facility] [address] [place] [address], [place] [phone] * FERRITIN (06/23/2024 7:57 AM CDT) FERRITIN 95.7 8.0 - 388.0 NG/ML 06/24/2024 3:28 PM CDT [facility] 06/23/2024 7:57 AM CDT [facility] LABORATORY Final Res ult Performing Organization Address City/[facility]/ZIP Co de Phone Number [facility] [address] [place] [address], [place] [phone] * MAGNESIUM (06/23/2024 7:57 AM CDT) MAGNESIUM 2.2 1.8 - 2.4 MG/DL 06/23/2024 9:05 AM CDT [facility] 06/23/2024 7:57 AM CDT us Ella Hodge [facility] Final Res ult [facility] [place] [facility] [address] [place] [address], * LIPID PANEL (06/23/2024 7:57 AM CDT) CHOLESTEROL 130 <200 MG/DL 06/23/2024 4:20 PM CDT [facility] TRIGLYCERIDES 61 <150 MG/DL 06/23/2024 4:20 PM CDT [facility] HDL 63 >40.0 MG/DL 06/23/2024 4:20 PM CDT [facility] LDL (CALCULATED) 55 <100 MG/DL 06/23/20 4:20 PM CDT [facility] NON HDL CHOLESTEROL 67 <130 MG/DL 06/23 4:20 PM CDT [facility] CHOL/HDL RATIO 2.1 0.0 - 4.5 06/23/2024 4:20 PM CDT [facility] VLDL CALCULATION 12 5 - 55 MG/DL 06/23/2024 4:20 PM CDT [facility] LIPID INTERPRETATION 06/23/2024 4:20 PM T [facility] Comment: NIH CONCENSUS REPORT RECOMMENDATIONS: ?ADULT ?CHILD ??LOW RISK: ?CHOLESTEROL ? <200 ? <170 ?TRIGLYCERIDE ?<150 ?--- ?HDL ? >=60 ?--- ?LDL ? <100 ? <110 ??BORDERLINE: ?CHOLESTEROL ? 200-239 ?? 170-199 ?TRIGLYCERIDE ?150-199 ? --- ?HDL ?40-59 ?--- ?LDL ? 100-159 ?? 110-129 ??HIGH RISK: ?CHOLESTEROL ? >=240 ?>=200 ?TRIGLYCERIDE ?>=200 ? --- ?HDL ?<40 ?--- ?LDL ? >=160 ?>=130 06/23/2024 7:57 AM CDT us Ella Hodge [facility] Final Res ult Performing Organization Address City/State/[facility] Co de Phone Number [facility] [address] [place] [address], * (ABNORMAL) CBC W/DIFF AUTOMATED (06/23/2024 7:57 AM CDT) Pathologist [facility] WBC 5.05 4.50 - 11.00 x10'3/uL 06/23/2024 8:07 AM CDT [facility] RBC 3.41(L) 4.00 - 5.20 x10'6/uL 06/23/2024 8:07 AM CDT [facility] HGB 10.6(L) 12.0 - 16.0 G/DL 06/23/2024 8:07 AM CDT [facility] HCT 32.1(L) 38.0 - 48.0 % 06/23/2024 8:07 AM CDT [facility] MCV 94.1 80.0 - 100.0 FL 06/23/2024 8:07 AM CDT [facility] MCH 31.1 26.0 - 34.0 PG 06/23/2024 8:07 AM CDT [facility] MCHC 33.0 31.0 - 37.0 G/DL 06/23/2024 8:07 AM CDT [facility] RDW 13.4 11.6 - 14.8 % 06/23/2024 8:07 AM CDT [facility] PLT 231 130 - 400 x10'3/uL 06/23/2024 8:07 AM CDT [facility] MPV 8.7 7.0 - 12.0 FL 06/23/2024 8:07 AM CDT [facility] CBC COMMENT AUTOMATED RBC MORPHOLOGY AND PLATELET EVALUATION NORMAL 06/23/2024 8:07 AM CDT [facility] NEUTROPHILS % 46.4 40.0 - 74.0 % 06/23/2024 8:07 AM CDT [facility] LYMPHOCYTES % 35.2 14.0 - 46.0 % 06/23/2024 8:07 AM CDT [facility] MONOCYTES % 11.3 4.0 - 13.0 % 06/23/2024 8:07 AM CDT [facility] EOSINOPHILS 6.1 0.0 - 7.0 % 06/23/2024 8:07 AM CDT [facility] BASOPHILS 0.8 0.0 - 3.0 % 06/23/2024 8:07 AM CDT [facility] IMMATURE GRANS % 0.2 0.0 - 0.43 % 06/23/2024 8:07 AM CDT [facility] NRBC % 0.0 % 06/23/2024 8:07 AM CDT [facility] ABS. NEUTROPHILS TOTAL 2.34 1.69 - 7.81 x10'3/uL 06/23/2024 8:07 AM CDT [facility] ABS. LYMPHOCYTES 1.78 0.21 - 5.42 x10'3/uL 06/23/2024 8:07 AM CDT [facility] ABS. MONOCYTES 0.57 0.04 - 1.37 x10'3/uL 06/23/2024 8:07 AM CDT [facility] ABS. EOSINOPHILS 0.31 0.00 - 0.68 x10'3/uL 06/23/2024 8:07 AM CDT [facility] ABS. BASOPHILS 0.04 0.00 - 0.08 x10'3/uL 06/23/2024 8:07 AM CDT [facility] ABS. IMMATURE GRANULOCYTES 0.01 0.00 - 0.06 x10'3/uL 06/23/2024 8:07 AM CDT [facility] ABS. NUCLEATED RBC'S 0.00 0.00 - 0.01 x10'3/uL 06/23/2024 8:07 AM CDT [facility] 06/23/2024 7:57 AM CDT us Ella Hodge [facility] Final Res ult [facility] [address] [facility] [place] [address], * (ABNORMAL) COMPREHENSIVE METABOLIC PANEL (06/23/2024 7:57 AM CDT) [facility] GLUCOSE 105(H) 70 - 99 MG/DL 06/23/2024 9:05 AM CDT [facility] BUN 22(H) 7 - 18 MG/DL 06/23/2024 9:05 AM CDT [facility] CREATININE S/P/B 1.08 0.50 - 1.20 MG/DL 06/23/2024 9:05 AM CDT [facility] SODIUM S/P/B 142 136 - 145 MMOL/L 06/23/2024 9:05 AM T [facility] POTASSIUM S/P/B 5.0 3.5 - 5.1 MMOL/L 06/23/2024 9:05 AM CDT [facility] CHLORIDE S/P/B 108 100 - 108 MMOL/L 06/23/2024 9:05 AM CDT [facility] CO2 25.0 21.0 - 32.0 MMOL/L 06/23/2024 9:05 AM T [facility] CALCIUM S/P/B 9.3 8.5 - 10.1 MG/DL 06/23/2024 9:05 AM T [facility] BILIRUBIN TOTAL S/P/B 0.5 0.2 - 1.2 MG/DL 06/23/2024 9:05 AM T [facility] Comment: THIS ASSAY IS NOT RECOMMENDED FOR PATIENTS UNDERGOING TREATMENT WITH ELTROMBOPAG DUE TO THE POTENTIAL FOR FALSELY ELEVATED RESULTS. TOTAL PROTEIN S/P/B 7.3 6.4 - 8.2 G/DL 06/23/2024 9:05 AM T [facility] ALBUMIN S/P/B 3.8 3.4 - 5.0 G/DL 06/23/2024 9:05 AM CDT [facility] AST 21 15 - 37 U/L 06/23/2024 9:05 AM T [facility] ALT 22 14 - 55 U/L 06/23/2024 9:05 AM T [facility] ALKALINE PHOSPHATASE S/P/B 54 50 - 136 U/L 06/23/2024 9:05 AM T [facility] ANION GAP 9.0 5.0 - 15.0 MMOL/L 06/23/2024 9:05 AM T [facility] BUN CREATININE RATIO 20.4 6 - 26 06/23/2024 9:05 AM CDT [facility] A/G RATIO 1.1 1.0 - 2.5 RATIO 06/23/2024 9:05 AM CDT [facility] GFR ESTIMATE 52(L) >90 ML/MIN/1.7 3 M2 06/23/2024 9:05 AM CDT [facility] Comment: NOTE: eGFR is not calculated for patients <18 years of age. This is an estimated GFR calculation using the new CKD EPI creatinine equation without race and so does not require a correction factor for race. This estimated GFR should not be used for calculating drug doses. 06/23/2024 7:57 AM CDT Ella Hodge [facility] LABORATORY Final Res ult Performing Organization Address City/[facility]/ZIP Co de Phone Number [facility] [address] [place] [address] [place] [address], [place] * (ABNORMAL) VITAMIN B-12 (06/23/2024 7:57 AM CDT) VITAMIN B12 S/P/B >6,000(H) 254 - 1,320 PG/ML 06/23/2024 4:20 PM CDT [facility] 06/23/2024 7:57 AM CDT [facility] Final Res ult [facility] [address] [place] [address], [place] [phone] * THYROID STIM HORMONE TSH (06/23/2024 7:57 AM CDT) TSH 1.240 0.358 - 3.74 uIU/ML 06/23/2024 4:20 PM CDT [facility] Comment: HIGH DOSES OF BIOTIN MAY INTERFERE WITH THIS TEST RESULT. CORRELATION TO CLINICAL HISTORY AND PRESENTATION RECOMMENDED. 06/23/2024 7:57 AM CDT [facility] Final Res ult [facility] [address] [place] [address], documented in this encounter Visit Diagnoses Diagnosis Chronic fatigue Other malaise and fatigue Essential hypertension Unspecified essential hypertension Mixed hyperlipidemia Low hemoglobin Anemia, unspecified documented in this encounter Additional Health Concerns Assessment Noted Time PHQ-9 Depression Total Score: 0 05/09/20 10:49 AM CDT documented as of this encounter Care Teams Campus Recruiting Internship Relationship Specialty Start Date End Date Ella Hodge FNP [address] [place] [address] [place] [address] PCP - General NURSE PRACTITIONER 05/09/23 Joon Lewis PA PHYSICIAN FREEZER MACHINE OPERATOR 05/09/21 Callie Guerrero DO Service Desk Manager OBGYN 06/14/21 [place] [id number] [id number] GASTROENTEROLOGY 06/14/21 Sergey Ramey PA [address] [place] [address] [place] [address] PHYSICIAN FREEZER MACHINE OPERATOR 06/14/21 Jony Pruitt DPM [address] [place] [address], [address] [place] [address] Referring Physician PODIATRY/SURGERY 06/14/21 [place] [address] [place] [address] ORTHOPAEDIC SURGERY 06/14/21 documented as of this encounter
--- OUTSIDE RECORDS SUMMARY | 2024-10-24 11:48 | XMS_ITS | Encounter Summary ---
Author Organization [facility] Address [facility]6 [facility]. [place], [place] [address] [place] [address] Care Team Providers Care Commercial Field Inspector Name Role Phone Joon Lewis Unavailable [phone] Callie Guerrero DO Unavailable [phone] George Osorio MD Unavailable Sergey Ramey Unavailable Jony Pruitt DPArthur Unavailable Gama Graves MD Unavailable [phone] Ella Hodge [facility] Primary Care Provider [phone] Reason for Visit * Reason Comments Sinus Problem Sinus drainage, wors e in the mornings. No fevers. Was seen in office 08/07/24 for same problem. Encounter Details Date Type Department Care Team (Late st Contact Info) Description 08/16/2024 9:00 AM CDT Office Visit [address] [place] [address] Ella Hodge, [address] [place] [address] Sinus Problem (Sinus drainage, worse in the mornings. No fevers. Was seen in office 08/07/24 for same problem. ) Social History Tobacco Use Types Packs/Day Years Used Date Smoking Tobacco: Never Smokeless Tobacco: Never Tobacco Cessation:Counseling Given: Not Answered Alcohol Use Standard Drinks/Week Comments No 0 [...] Sign Reading Time Taken Comments Blood Pressure 120/60 08/16/2024 9:03 AM CDT Pulse 67 08/16/2024 9:03 AM CDT Temperature 36.4 ??C (97.6 ??F) 08/16/2024 9:03 AM CD T Respiratory Rate 16 08/16/2024 9:03 AM CDT Oxygen Saturation 98% 08/16/2024 9:03 AM CDT Inhaled Oxygen Concentration - - Weight 65 kg (143 lb 6.4 oz) 08/16/2024 9:03 AM CDT Height 152.4 cm (5') 08/16/2024 9:03 AM CDT Body Mass Index 28.01 08/16/2024 9:03 AM CDT documented in this encounter Patient Instructions * Patient Instructions* THEODORA Head - 08/16/2024 9:00 AM CDT Rest and hydrate well. Take doxycycline with food. Call or return for symptoms not resolving as expected. documented in this encounter Progress Notes * THEODORA Head - 08/16/2024 9:00 AM CDT Love Catherine is a 78-year-old female patient. Reason for Visit: Sinus Problem (Sinus drainage, worse in the mornings. No fevers. Was seen in office 08/07/24 for same problem. ) History of Present Illness: Here for cold symptoms. Illness started 08/05. She was seen by Libia on 08/07, negative flu and COVID testing. She states she continues to have a lot of nasal drainage that tastes bad. Also noticed left maxillary pain and a sensitive tooth on the left upper side. No fever. No cough. Good appetite. Using mucinex with some relief. ROS: Except as noted in HPI, 10 point review of systems was completed and otherwise unremarkable or noncontributory to chief complaint. Medications: Current Outpatient Medications: cetirizine 10 MG tablet, Take 1 tablet (10 mg total) by mouth daily., Disp: , Rfl: doxycycline monohydrate (ADOXA) 100 MG tablet, Take 1 tablet (100 mg total) by mouth 2 (two) times daily for 10 days., Disp: 20 tablet, Rfl: 0 famotidine (PEPCID) 20 MG tablet, Take 1 tablet (20 mg total) by mouth 2 (two) times daily., Disp: 180 tablet, Rfl: 3 lisinopril (PRINIVIL) 20 MG tablet, Take 1 tablet (20 mg total) by mouth daily., Disp: 90 tablet, Rfl: 3 meloxicam (MOBIC) 15 MG tablet, , Disp: , Rfl: methylPREDNISolone, CHAPITO, (MEDROL DOSEPAK) 4 MG tablet, 6 TABLETS ON DAY ONE, 5 TABLETS DAY TWO, 4 TABLETS DAY THREE, 3 TABLETS DAY FOUR, 2 TABLETS DAY FIVE, AND 1 TABLET DAY SIX, Disp: 1 each, Rfl: 0 montelukast (SINGULAIR) 10 MG tablet, Take 1 [...] No partnership data on file Filed Vitals: 08/16/24 0903 BP: 120/60 Pulse: 67 Resp: 16 Temp: 97.6 ??F (36.4 ??C) TempSrc: Tympanic SpO2: 98% Weight: 65 kg (143 lb 6.4 oz) Height: 1.524 m (5') Body mass index is 28.01 kg/m??. Physical Exam: Physical Exam Constitutional: Appearance: Normal appearance. She is not ill-appearing. HENT: Head: Normocephalic. Right Ear: Tympanic membrane, ear canal and external ear normal. Left Ear: Tympanic membrane, ear canal and external ear normal. Nose: Congestion present. Left Sinus: Maxillary sinus tenderness present. Mouth/Throat: Mouth: Mucous membranes are moist. Cardiovascular: Rate and Rhythm: Normal rate and regular rhythm. Heart sounds: Normal heart sounds. Pulmonary: Effort: Pulmonary effort is normal. Breath sounds: Normal breath sounds. Neurological: General: No focal deficit present. Mental Status: She is alert and oriented to person, place, and time. Psychiatric: Mood and Affect: Mood normal. Behavior: Behavior normal. Thought Content: Thought content normal. Judgment: Judgment normal. Diagnoses/Impression: Encounter Diagnose(s) ICD-10-CM SNOMED CT(R) 1. Left maxillary sinusitis J32.0 MAXILLARY SINUSITIS methylPREDNISolone, CHAPITO, (MEDROL DOSEPAK) 4 MG tablet doxycycline monohydrate (ADOXA) 100 MG tablet Recommendations and Plan: discussed use of medrol, doxycycline and reviewed associated side effects. Reviewed signs and symptoms of worsening condition and when to seek treatment. Patient Instructions Rest and hydrate well. Take doxycycline with food. Call or return for symptoms not resolving as expected. THEODORA HEAD Cosigned by Ziggy Harding MD at 08/16/2024 9:31 PM CDT documented in this encounter Plan of Treatment Upcoming Encounters Date Type Department Care Team (Late st Contact Info) Description 11/02/2024 8:00 AM PERFORMANCE SPECIALIST Office Visit [address] [place] [address] Ella Hodge FNP [address] [place] [address] [place] [address] 01/19/2025 11:00 AM CDT Office Visit [facility] [address] [place] [address] Stanley Jim MD [address] [place] [address] 06/23/2025 8:20 AM CDT Office Visit [address] [place] [address] Ella Hodge FNP [address] [place] [address] [place] [address] documented as of this encounter Visit Diagnoses Diagnosis Left maxillary sinusitis- Primary Chronic maxillary sinusitis documented in this encounter Additional Health Concerns Assessment Noted Time PHQ-9 Depression Total Score: 0 05/09/20 23 10:49 AM CDT documented as of this encounter Care Teams Commercial Field Inspector Relationship Specialty Start Date End Date Ella Hodge FNP [facility] [place] [address] PCP - General NURSE PRACTITIONER 05/09/23 Joon Lewis PA PHYSICIAN SLITTER OPERATOR 05/09/21 Callie Guerrero DO Design Inserter OBGYN 06/14/21 [place] [address] [phone] GASTROENTEROLOGY 06/14/21 Sergey Ramey PA [address] [place] [address] [place] [address] PHYSICIAN SLITTER OPERATOR 06/14/21 Jony Pruitt DPM [address] [place] [address], [address] [place] [address] Referring Physician PODIATRY/SURGERY 06/14/21 [place] [address] [place] [address] ORTHOPAEDIC SURGERY 06/14/21 documented as of this encounter
--- OUTSIDE RECORDS SUMMARY | 2024-10-24 11:48 | XMS_ITS | Encounter Summary ---
Author Organization [facility] Address [facility]6 [facility]. [place], [place] [address] [place] [address] Care Team Providers Care Management Accounts Manager Name Role Phone Joon Lewis Unavailable [phone] Callie Guerrero DO Unavailable [phone] George Osorio MD Unavailable Sergey Ramey Unavailable Jony Pruitt DPM Unavailable [phone] Gama Graves MD Unavailable [phone] Ella Hodge [facility] Primary Care Provider [phone] Reason for Visit * Reason Onset Date Comments Follow Up Call 08/12/2024 Encounter Details Date Type Department Care Team (Late st Contact Info) Description 08/12/2024 Telephone [place] [address] [place] [address] Ella Hodge [facility] [address] [place] [address] Follow Up Call Social History Tobacco [...] Progress Notes * Julia العراقي LPN - 08/12/2024 11:28 AM CDT Pt aware and stated she will hold off and if doesn't improve she will call back in and sched appt. * THEODORA Parkinson - 08/12/2024 8:04 AM CDT I suggest follow up visit if her sx are worsening and not responding to symptomatic treatment * Julia العراقي LPN - 08/12/2024 7:55 AM CDT Pt called with update from being seen per Anyi Leal on Friday. Pt states still has a sore throat, a lot of sinus congestion and blowing out thick secretions and a lot of sinus drainage. Productive cough bringing up thick yellow secretions. Afebrile. No body aches nor chills. No SOB. Continues takingMucinex. Pt asking should she just continue Mucinex, does she need a f/u visit, or can she get antibiotic. [facility]. [phone]. documented in this encounter Plan of Treatment Upcoming Encounters Date Type Department Care Team (Late st Contact Info) Description 11/02/2024 8:00 AM SITE COORDINATOR Office Visit [address] [place] [address] Ella Hodge [address] [place] [address] 01/19/2025 11:00 AM CDT Office Visit [facility] - [place] 200 [facility] [place] [address] Stanley Jim MD [address] [place] [address] 06/23/2025 8:20 AM CDT Office Visit [facility] 201 [facility] [place] [address] Ella Hodge FNP 201 [facility] [place] [address] documented as of this encounter Visit Diagnoses Not on filedocumented in this encounter Additional Health Concerns Assessment Noted Time PHQ-9 Depression Total Score: 0 05/09/20 10:49 AM CDT documented as of this encounter Care Teams Management Accounts Manager Relationship Specialty Start Date End Date Ella Hodge FNP 201 [facility] [place] [address] PCP - General NURSE PRACTITIONER 05/09/23 Joon Lewis PA PHYSICIAN PHOTOGRAPHIC RESTORER 05/09/21 Callie Guerrero DO M[employer] Ac[employer]itions Consultant OBGYN 06/14/21 [place] [address] [phone] GASTROENTEROLOGY 06/14/21 Sergey Ramey PA [address] [place] [address] [place] [address] PHYSICIAN PHOTOGRAPHIC RESTORER 06/14/21 Jony Pruitt DPM [address] [place] [address], [address] [place] [address] Referring Physician PODIATRY/SURGERY 06/14/21 [place] [address] [place] [address] ORTHOPAEDIC SURGERY 06/14/21 documented as of this encounter
--- OUTSIDE RECORDS SUMMARY | 2024-10-24 11:48 | XMS_ITS | Encounter Summary ---
Author Organization [facility] Address [facility]6 [facility]. [place], [place] [address] [place] [address] Care Team Providers Care Municipal Court Magistrate Name Role Phone Joon Lewis Unavailable [phone] Callie Guerrero DO Unavailable [phone] George Osorio MD Unavailable Sergey Ramey Unavailable Jony Pruitt DPM Unavailable [phone] Gama Graves MD Unavailable [phone] Ella Hodge [facility] Primary Care Provider [phone] Reason for Visit * Reason Onset Date Comments Medication 07/26/2024 Encounter Details Date Type Department Care Team (Late st Contact Info) Description 07/26/[address] [place] [address] Ella Hodge [facility] [address] [place] [address] Medication Social History Tobacco Use Types Packs/Day Years [...] Progress Notes * Julia العراقي LPN - 07/27/2024 12:13 PM CDT Pt aware of same. * THEODORA Kendall - 07/26/2024 4:24 PM CDT Refill sent to pharmacy * Julia العراقي LPN - 07/26/2024 3:59 PM CDT RF 01/28/24 #90 1 RF. OV 06/22/24 med management. Med refilled by outside provider martha Gomes Md. Pt states she doesn't know who this MD is that was filling. documented in this encounter Plan of Treatment Upcoming Encounters Date Type Department Care Team (Late st Contact Info) Description 11/02/2024 8:00 AM RESAW FEEDER Office Visit [facility] [address] [place] [address] Ella Hodge FNP [address] [place] [address] 01/19/2025 11:00 AM CDT Office Visit [facility] Medical [facility] - [place] [address] [place] [address] Stanley Jim MD [address] [place] [address] 06/23/2025 8:20 AM CDT Office Visit [facility] [address] [place] [address] Ella Hodge FNP [address] [place] [address] documented as of this encounter Visit Diagnoses Diagnosis Chronic rhinitis documented in this encounter Additional Health Concerns Assessment Noted Time PHQ-9 Depression Total Score: 0 05/09/20 10:49 AM CDT documented as of this encounter Care Teams Municipal Court Magistrate Relationship Specialty Start Date End Date Ella Hodge FNP [address] [place] [address] PCP - General NURSE PRACTITIONER 05/09/23 Joon Lewis PA PHYSICIAN COOLING SYSTEM OPERATOR 05/09/21 Callie Guerrero DO Environmental Health Inspector OBGYN 06/14/21 [place] [address] [phone] GASTROENTEROLOGY 06/14/21 Sergey Ramey PA [address] [place] [address] [place] [address] PHYSICIAN COOLING SYSTEM OPERATOR 06/14/21 Jony Pruitt DPM [facility]0 [facility], [address] [place] [address] Referring Physician PODIATRY/SURGERY 06/14/21 [place] [address] [place] [address] ORTHOPAEDIC SURGERY 06/14/21 documented as of this encounter
--- OUTSIDE RECORDS SUMMARY | 2024-10-24 11:48 | XMS_ITS | Encounter Summary ---
Author Organization [facility] Address [facility]6 [facility]. [place], [place] [address] [place] [address] Care Team Providers Care End Polisher Name Role Phone Joon Lewis Unavailable [phone] Callie Guerrero DO Unavailable [phone] George Osorio MD Unavailable Sergey Ramey Unavailable [phone] Jony Pruitt DPM Unavailable [phone] Gama Graves MD Unavailable [phone] Ella Hodge EP SPECIALIST Primary Care Provider [phone] Encounter Details Date Type Department Care Team (Latest Contact Info) Description 08/16/2024 Travel Social History Tobacco Use Types Packs/Day [...] st Contact Info) Description 11/02/2024 8:00 AM SAFETY LAMP KEEPER Office Visit [address] [place] [address] Ella Hodge FNP 201 [facility] [place] [address] 01/19/2025 11:00 AM CDT Office Visit [facility] Medical Group Pulmonology Specialty Clinic - [address] [place] [address] Stanley Jim MD [address] [place] [address] 06/23/2025 8:20 AM CDT Office Visit [address] [place] [address] Ella Hodge FNP [address] [place] [address] [place] [address] documented as of this encounter Visit Diagnoses Not on filedocumented in this encounter Additional Health Concerns Assessment Noted Time PHQ-9 Depression Total Score: 0 05/09/20 23 10:49 AM CDT documented as of this encounter Care Teams End Polisher Relationship Specialty Start Date End Date Ella Hodge FNP [address] [place] [address] [place] [address] PCP - General NURSE PRACTITIONER 05/09/23 Joon Lewis PA PHYSICIAN RADIO STATION AUDIO ENGINEER 05/09/21 Callie Guerrero DO Global Consumer Sector Vice President OBGYN 06/14/21 [place] [address] [address] [place] [address] GASTROENTEROLOGY 06/14/21 Sergey Ramey PA [address] [place] [address] PHYSICIAN RADIO STATION AUDIO ENGINEER 06/14/21 Jony Pruitt DPM [address] [place] [address], [address] [place] [address] Referring Physician PODIATRY/SURGERY 06/14/21 [place] [address] [place] [address] ORTHOPAEDIC SURGERY 06/14/21 documented as of this encounter
--- OUTSIDE RECORDS SUMMARY | 2024-10-24 11:48 | XMS_ITS | Encounter Summary ---
Author Organization [facility] Address [facility]6 [facility]. [place], [place] [address] [place] [address] Care Team Providers Care Puppet Master Name Role Phone Joon Lewis Unavailable [phone] Callie Guerrero DO Unavailable [phone] George Osorio MD Unavailable Sergey Ramey Unavailable [phone] Jony Pruitt DPM Unavailable [phone] Gama Graves MD Unavailable [phone] Ella Hodge [facility] Primary Care Provider [phone] Encounter Details Date Type Department Care Team (Latest Contact Info) Description 08/31/2024 Travel Social History Tobacco Use Types Packs/Day [...] st Contact Info) Description 11/02/2024 8:00 AM PRINCIPAL JAVA DEVELOPER Office Visit [address] [place] [address] Ella Hodge FNP 201 [facility] [place] [place] [address] 01/19/2025 11:00 AM CDT Office Visit [facility] Medical Group Pulmonology Specialty Clinic - [address] [place] [address] Stanley Jim MD [address] [place] [address] 06/23/2025 8:20 AM CDT Office Visit [address] [place] [address] Ella Hodge FNP [address] [place] [address] [place] [address] documented as of this encounter Visit Diagnoses Not on filedocumented in this encounter Additional Health Concerns Assessment Noted Time PHQ-9 Depression Total Score: 0 05/09/20 23 10:49 AM CDT documented as of this encounter Care Teams Puppet Master Relationship Specialty Start Date End Date Ella Hodge FNP [address] [place] [address] [place] [address] PCP - General NURSE PRACTITIONER 05/09/23 Joon Lewis PA PHYSICIAN DIE ENGRAVER 05/09/21 Callie Guerrero DO Front Desk Admin OBGYN 06/14/21 [place] [address] [address] [place] [address] GASTROENTEROLOGY 06/14/21 Sergey Ramey PA [address] [place] [address] PHYSICIAN DIE ENGRAVER 06/14/21 Jony Pruitt DPM [address] [place] [address], [address] [place] [address] Referring Physician PODIATRY/SURGERY 06/14/21 [place] [address] [place] [address] ORTHOPAEDIC SURGERY 06/14/21 documented as of this encounter
--- OUTSIDE RECORDS SUMMARY | 2024-10-24 11:48 | XMS_ITS | Encounter Summary ---
Author Organization [facility] Address [facility]. [place], [place] [address] [place] [address] Care Team Providers Care Flavorer Name Role Phone Joon Lewis Unavailable [phone] Callie Guerrero DO Unavailable [phone] George Osorio MD Unavailable Sergey Ramey Unavailable [phone] Jony Pruitt DPArthur Unavailable [phone] Gama Graves MD Unavailable [phone] [facility] Primary Care Provider [phone] Reason for Referral * Consultation (Routine) - New Request Specialty Diagnoses / Procedures Referred By Contact Referred To Contact PULMONARY DISEASE / SLEEP & RESPIRATORY CARE Diagnoses Obstructive sleep apnea Procedures OFFICE/OUTPATIENT NEW LOW MDM 30-44 MINUTES OFFICE/OUTPT VISIT,NEW,LEVL IV OFFICE/OUTPT VISIT,NEW,LEVL V OFFICE/OUTPT VISIT,EST,LEVL III OFFICE/OUTPT VISIT,EST,LEVL IV OFFICE/OUTPT VISIT,EST,LEVL V Ella Hodge, [facility] [address] [place] [address] Phone: tel: fax: Stanley Jim MD [address] [place] [address] Phone: tel: fax: Referral ID Status Reason Start Date Expiration Date Visits Requested Visits Authorized [id number] New Request Specialty Services 07/26/2024 08/26/2025 1 1 Scheduling Instructions Transferring from Sydnee Ramey to Dr Jim please. Reason for Visit * Reason Onset Date Comments Referral 07/23/2024 Encounter Details Date Type Department Care Team (Late st Contact Info) Description 07/23/2024 Telephone [facility] [address] [place] [address] Ella Hodge FNP [address] [place] [address] Referral Social History Tobacco Use Types Packs/Day Years [...] Progress Notes * Julia العراقي LPN - 07/26/2024 1:42 PM CDT Referral made. * THEODORA Kendall - 07/26/2024 1:40 PM CDT Fine to refer to Dr. Jim for JUAN. * Julia العراقي LPN - 07/26/2024 1:33 PM CDT Pt stated she was seeing Alejandro Ramey for sleep apnea, and she hasn't been happy with him. Sherry is seeing DR Jim and they both like him. She wants to transfer to DR Jim. * Julia العراقي LPN - 07/26/2024 11:05 AM CDT Message left for pt to return nurse call. * THEODORA Kendall - 07/25/2024 7:46 AM CDT What is the reason for the referral request? * Cora Aguila - 07/23/2024 11:42 AM CDT Patient is wanting to get a refferal to Dr. Glen Jim documented in this encounter Plan of Treatment Upcoming Encounters Date Type Department Care Team (Late st Contact Info) Description 11/02/2024 8:00 AM MEDICAL FILE CLERK Office Visit [facility] [address] [place] [address] Ella Hodge FNP [address] [place] [address] 01/19/2025 11:00 AM CDT Office Visit [facility] Medical Group Pul[facility]ology Specialty Clinic - [place] [address] [place], [place] [address] Stanley Jim MD [address] [place] [address] 06/23/2025 8:20 AM CDT Office Visit [facility] 201 [facility] [place] [address] Ella Hodge FNP [address] [place] [address] Scheduled Referrals Name Type Priority Associated Diagnoses Orde r Schedule Ambulatory referral to Pulmonology (OTHER) Referral Routine Obstructive sleep apnea Ordered: 07/26/2024 documented as of this encounter Visit Diagnoses Diagnosis Obstructive sleep apnea- Primary Obstructive sleep apnea (adult) (pediatric) documented in this encounter Additional Health Concerns Assessment Noted Time PHQ-9 Depression Total Score: 0 05/09/20 10:49 AM CDT documented as of this encounter Care Teams Flavorer Relationship Specialty Start Date End Date Ella Hodge FNP [facility] [place] [address] PCP - General NURSE PRACTITIONER 05/09/23 Joon Lewis PA PHYSICIAN STREET FLUSHER DRIVER 05/09/21 Callie Guerrero DO Mobile Home Mechanic OBGYN 06/14/21 [place] [address] [phone] GASTROENTEROLOGY 06/14/21 Sergey Ramey PA [address] [place] [address] [place] [address] FLUSHER DRIVER 06/14/21 Jony Pruitt DPM [address] [place] [address], [address] [place] [address] Referring Physician PODIATRY/SURGERY 06/14/21 [place] [address] [place] [address] ORTHOPAEDIC SURGERY 06/14/21 documented as of this encounter
--- OUTSIDE RECORDS SUMMARY | 2024-10-24 11:48 | XMS_ITS | Encounter Summary ---
Author Organization [facility] Address [facility]6 [facility]. [place], [place] [address] [place] [address] Care Team Providers Care Frozen Food Selector Name Role Phone Joon Lewis Unavailable [phone] Callie Guerrero DO Unavailable [phone] George Osorio MD Unavailable Sergey Ramey Unavailable [phone] Jony Pruitt DPM Unavailable [phone] Gama Graves MD Unavailable [phone] Ella Hodge [facility] Primary Care Provider [phone] Reason for Visit * Reason Comments Cough Cough started yester day, sometimes productive, post nasal drainage, chills, bodyaches Encounter Details Date Type Department Care Team (Late st Contact Info) Description 10/12/2024 4:00 PM TIPPLE OILER Office Visit [address] [place] [address] Ella Hodge [address] [place] [id number] Cough (Cough started yesterday, sometimes productive, post nasal drainage, chills, bodyaches) Social History Tobacco Use Types Packs/Day Years [...] Comments Blood Pressure 118/64 10/12/2024 4:00 PM TIPPLE OILER Pulse 87 10/12/2024 4:00 PM TIPPLE OILER Temperature 37.1 ??C (98.8 ??F) 10/12/2024 4:00 PM CS T Respiratory Rate - - Oxygen Saturation 97% 10/12/2024 4:00 PM TIPPLE OILER Inhaled Oxygen Concentration - - Weight 64.4 kg (142 lb) 10/12/2024 4:00 PM TIPPLE OILER Height 152.4 cm (5') 10/12/2024 4:00 PM TIPPLE OILER Body Mass Index 27.73 10/12/2024 4:00 PM TIPPLE OILER documented in this encounter Patient Instructions * Patient Instructions* THEODORA Head - 10/12/2024 4:00 PM TIPPLE OILER Work on hydration. May drink pedialyte or soup broth to help with hydration. Symptoms should start improving by day 7, let me know if you have questions or concerns. LE OILER * Attachments The following attachments cannot be sent through Care Everywhere. * Viral Upper Respiratory Infection Discharge Instructions, Adult (Belizean) documented in this encounter Progress Notes * THEODORA Head - 10/12/2024 4:00 PM CST Love Catherine is a 78-year-old female patient. Reason for Visit: Cough (Cough started yesterday, sometimes productive, post nasal drainage, chills, bodyaches) History of Present Illness: Here for URI symptoms that started yesterday. Love reports nasal congestion, cough, chills and fatigue. She has been using Mucinex. Reports decreased appetite and has not been drinking much. She states her grandson was sick with similar symptoms recently. ROS: Except as noted in HPI, 10 [...] History: Procedure Laterality Date BREAST BIOPSY COLONOSCOPY FLX DX W/COLLJ SPEC WHEN PFRMD FOOT SURGERY Left 03/14/2021 dr jony pruitt [...] No partnership data on file Filed Vitals: 10/12/24 1600 BP: 118/64 Pulse: 87 Temp: 98.8 ??F (37.1 ??C) SpO2: 97% Weight: 64.4 kg (142 lb) Height: 1.524 m (5') Body mass index is 27.73 kg/m??. Physical Exam: Physical Exam Constitutional: Appearance: Normal appearance. She is ill-appearing. HENT: Head: Normocephalic. Right Ear: Hearing, tympanic membrane, ear canal and external ear normal. Left Ear: Hearing, tympanic membrane, ear canal and external ear normal. Nose: Rhinorrhea present. Rhinorrhea is clear. Mouth/Throat: Lips: Roselle. Mouth: Mucous membranes are moist. Cardiovascular: Rate and Rhythm: Normal rate and regular rhythm. Heart sounds: Normal heart sounds. Pulmonary: Effort: Pulmonary effort is normal. Breath sounds: Normal breath sounds. Skin: General: Skin is warm and dry. Neurological: Mental Status: She is alert. Psychiatric: Behavior: Behavior normal. Behavior is cooperative. Diagnoses/Impression: Encounter Diagnose(s) ICD-10-CM SNOMED CT(R) 1. Viral URI with cough J06.9 VIRAL UPPER RESPIRATORY TRACT INFECTION 2. Acute cough R05.1 ACUTE COUGH CORONAVIRUS (COVID-19) INFLUENZA A & B ANTIGEN IA PANEL Recommendations and Plan: Discussed management of symptoms with OTC medications. Also encouraged increased hydration. Reviewed signs and symptoms of worsening condition and when to seek treatment. Patient Instructions Work on hydration. May drink pedialyte or soup broth to help with hydration. Symptoms should start improving by day 7, let me know if you have questions or concerns. THEODORA HEAD Cosigned by Ziggy Harding MD at 10/13/2024 3:55 PM TIPPLE OILER LE OILER LE OILER documented in this encounter Plan of Treatment Upcoming Encounters Date Type Department Care Team (Late st Contact Info) Description 11/02/2024 8:00 AM TIPPLE OILER Office Visit [address] [place] [address] Ella Hodge [address] [place], [place] [id number] 01/19/2025 11:00 AM CDT Office Visit [facility] - [address] [place], [place] [phone] Stanley Jim MD [address] [place] [address] 06/23/2025 8:20 AM CDT Office Visit [address] [place], [place] [phone] Ella Hodge [address] [place] [id number] documented as of this encounter Procedures Procedure Name Priority Date/Time Associated Diagnosis Comments CORONAVIRUS (COVID-19) INFLUENZA A & B ANTIGEN IA PANEL Routine 10/12/2024 Acute cough documented in this encounter Results * CORONAVIRUS (COVID-19) INFLUENZA A & B ANTIGEN IA PANEL (10/12/2024) CORONAVIRUS ANTIGEN IA NEGATIVE NEGATIVE [facility] (201), [place] INFLUENZA A NEGATIVE NEGATIVE [facility] ([facility]), [place] INFLUENZA B NEGATIVE NEGATIVE [facility] (), [place] Internal Control: [facility]ID [facility] ([facility]), [place] NASAL STRUCTURE / Unknown 10/12/2024 Ella Hodge TOMATO GRADER MICROBIOLOGY - GENERAL OR DERABLES Final Result -[facility] [address] ([address]), [address] [place] [address], documented in this encounter Visit Diagnoses Diagnosis Viral URI with cough- Primary Acute upper respiratory infections of unspecified site Acute cough documented in this encounter Additional Health Concerns Infection Onset Date Last Indicated Resolved Time COVID-19 Rule Out 10/12/2024 10/12/2024 10/14/2024 2:16 PM TIPPLE OILER Assessment Noted Time PHQ-9 Depression Total Score: 0 05/09/20 10:49 AM CDT documented as of this encounter Care Teams Frozen Food Selector Relationship Specialty Start Date End Date Ella Hodge FNP [address] [place] [address] [place] [address] PCP - General NURSE PRACTITIONER 05/09/23 Joon Lewis PA PHYSICIAN NUT SIFTER 05/09/21 Callie Guerrero DO Pediatric Nephrologist OBGYN 06/14/21 [place] [id number] [phone] GASTROENTEROLOGY 06/14/21 Sergey Ramey PA [address] [place] [address] [place] [address] PHYSICIAN NUT SIFTER 06/14/21 Jony Pruitt DPM [address] [facility], [address] [place] [address] Referring Physician PODIATRY/SURGERY 06/14/21 [place] [address] [place] [address] ORTHOPAEDIC SURGERY 06/14/21 documented as of this encounter
--- OUTSIDE RECORDS SUMMARY | 2024-10-24 11:49 | XMS_ITS | Encounter Summary ---
Author Organization [facility] Address [facility]6 [facility]. [place], [place] [address] [place] [address] Care Team Providers Care Wool Fleece Grader Name Role Phone Joon Lewis Unavailable [phone] Callie Guerrero DO Unavailable [phone] George Osorio MD Unavailable Sergey Ramey Unavailable [phone] Jony Pruitt DPM Unavailable [phone] Gama Graves MD Unavailable [phone] Ella Hodge TAXI DANCER Primary Care Provider [phone] Encounter Details Date Type Department Care Team (Latest Contact Info) Description 06/08/2024 Scan HEALTH INFO SRVCS Scanned, Doc Med Group Social History Tobacco Use Types Packs/Day Years [...] st Contact Info) Description 11/02/2024 8:00 AM AUTOMOTIVE REFINISHER Office Visit [address] [place] [address] Ella Hodge FNP [address] [facility] [place] [address] 01/19/2025 11:00 AM CDT Office Visit [facility] - [address] [place] [address] Stanley Jim MD [address] [place] [address] 06/23/2025 8:20 AM CDT Office Visit [address] [place] [address] Ella Hodge FNP [address] [place] [address] [place] [address] documented as of this encounter Visit Diagnoses Not on filedocumented in this encounter Additional Health Concerns Assessment Noted Time PHQ-9 Depression Total Score: 0 05/09/20 10:49 AM CDT documented as of this encounter Care Teams Wool Fleece Grader Relationship Specialty Start Date End Date Ella Hodge FNP [address] [place] [address] [place] [address] PCP - General NURSE PRACTITIONER 05/09/23 Joon Lewis PA PHYSICIAN ATHLETIC INSTRUCTOR 05/09/21 Callie Guerrero DO Molecular Biology Director OBGYN 06/14/21 [place] [address] [facility] [address] [place] [phone] GASTROENTEROLOGY 06/14/21 Sergey Ramey PA [address] [place] [address] PHYSICIAN ATHLETIC INSTRUCTOR 06/14/21 Jony Pruitt DPM [address] [place] [address], [address] [place] [address] Referring Physician PODIATRY/SURGERY 06/14/21 [place] [address] [place] [address] ORTHOPAEDIC SURGERY 06/14/21 documented as of this encounter
--- OUTSIDE RECORDS SUMMARY | 2024-10-24 11:49 | XMS_ITS | Encounter Summary ---
Author Organization [facility] Address [facility]6 [facility]. [place], [place] [address] [place] [address] Care Team Providers Care Outboard Motor Assembler Name Role Phone Joon Lewis Unavailable [phone] Callie Guerrero DO Unavailable [phone] George Osorio MD Unavailable Sergey Ramey Unavailable Jony Pruitt DPArthur Unavailable [phone] Gama Graves MD Unavailable [phone] Ella Hodge [facility] Primary Care Provider [phone] Reason for Visit * Reason Comments Medication Management Encounter Details Date Type Department Care Team (Late st Contact Info) Description 06/22/2024 8:20 AM CDT Office Visit [address] [place] [id number] Ella Hodge [place] [address] [place] [id number] Medication Management Social History Tobacco Use Types Packs/Day Years [...] Sign Reading Time Taken Comments Blood Pressure 135/70 06/22/2024 8:18 AM CDT Pulse 82 06/22/2024 8:18 AM CDT Temperature 36.7 ??C (98 ??F) 06/22/2024 8:18 AM CDT Respiratory Rate 12 06/22/2024 8:18 AM CDT Oxygen Saturation 96% 06/22/2024 8:18 AM CDT Inhaled Oxygen Concentration - - Weight 62.6 kg (138 lb) 06/22/2024 8:18 AM CDT Height 152.4 cm (5') 06/22/2024 8:18 AM CDT Body Mass Index 26.95 06/22/2024 8:18 AM CDT documented in this encounter Patient Instructions * Patient Instructions* THEODORA Head - 06/22/2024 8:20 AM CDT Update labs. Get flu and COVID vaccines in the fall. Start counseling to help with stressors. Brenna Limon ([place]) [phone] Ita Bliss ([place]) [phone] [employer] ([place]) [phone] Www.betterhelp.com is an online service. The following websites can also be helpful: www.psychologytoday.com www.meetmonarch.com www.theravive.com National Suicide Hotline is available 19/05 by call or text to documented in this encounter Progress Notes * THEODORA Head - 06/22/2024 8:20 AM CDT Love Catherine is a 78-year-old female patient. Reason for Visit: Medication Management History of Present Illness: Here for medication refills. Love states she is feeling overwhelmed with fatigue and stress. Shestates she had COVID in October and since then feels exhausted all of the time. She feels like the fatigue has not resolved much after the illness. She also states she is overwhelmed by her 'smedical visits and procedures. 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 She has beenhelping care for her 1 year old grandson. She states she doesn't have anyone to talk to. Her friends give her unhelpful advice. She states she cries when she talks about stressors. She doesn't want to try any medication. She is open to counseling. HTN: controlled on current medication GERD: controlled on current medication Hyperlipidemia: on statin, due to update labs. ROS: Except as noted in HPI, 10 point review of systems was completed and otherwise unremarkable or noncontributory to chief complaint. Medications: Current Outpatient Medications: cetirizine 10 MG tablet, Take 1 tablet (10 mg total) by mouth daily., Disp: , Rfl: famotidine (PEPCID) 20 MG tablet, Take 1 tablet (20 mg total) by mouth 2 (two) times daily., Disp: 180 tablet, Rfl: 3 IPRATROPIUM 0.03 % nasal spray, USE 2 SPRAYS INTO EACH NOSTRIL EVERY 12 HOURS (Patient taking differently: as needed.), Disp: 30 mL, Rfl: 0 lisinopril (PRINIVIL) 20 MG tablet, Take 1 tablet (20 mg total) by mouth daily., Disp: 90 tablet, Rfl: 3 meloxicam (MOBIC) 15 MG tablet, , Disp: , Rfl: montelukast (SINGULAIR) 10 MG tablet, take 1 tablet by mouth every day, Disp: 90 tablet, Rfl: 1 NON FORMULARY, C- pap ; q hs, [...] No partnership data on file Filed Vitals: 06/22/24 0818 BP: 135/70 Pulse: 82 Resp: 12 Temp: 98 ??F (36.7 ??C) TempSrc: Temporal SpO2: 96% Weight: 62.6 kg (138 lb) Height: 1.524 m (5') Body mass index is 26.95 kg/m??. Physical Exam: Physical Exam Constitutional: Appearance: Normal appearance. She is not ill-appearing. HENT: Head: Normocephalic. Cardiovascular: Rate and Rhythm: Normal rate and regular rhythm. Heart sounds: Normal heart sounds. Pulmonary: Effort: Pulmonary effort is normal. Breath sounds: Normal breath sounds. Skin: General: Skin is warm and dry. Neurological: General: No focal deficit present. Mental Status: She is alert and oriented to person, place, and time. Psychiatric: Attention and Perception: Attention normal. Mood and Affect: Mood is anxious. Affect is tearful. Speech: Speech normal. Behavior: Behavior normal. Behavior is cooperative. Cognition and Memory: Cognition normal. Comments: Very tearful during conversation. Diagnoses/Impression: Encounter Diagnose(s) ICD-10-CM SNOMED CT(R) 1. Mixed hyperlipidemia E78.2 MIXED HYPERLIPIDEMIA rosuvastatin (CRESTOR) 20 MG tablet LIPID PANEL 2. Essential hypertension I10 ESSENTIAL HYPERTENSION lisinopril (PRINIVIL) 20 MG tablet COMPREHENSIVE METABOLIC PANEL CBC W/DIFF AUTOMATED 3. Gastroesophageal reflux disease without esophagitis K21.9 GASTROESOPHAGEAL REFLUX DISEASE WITHOUT ESOPHAGITIS famotidine (PEPCID) 20 MG tablet 4. Chronic fatigue R53.82 FATIGUE THYROID STIM HORMONE TSH VITAMIN B-12 MAGNESIUM 5. Anxiety F41.9 ANXIETY Recommendations and Plan: Chronic conditions are stable, continue with current medications. Fatigue: update labs. Also discussed increased anxiety may be also contributing to fatigue. Strongly encouraged her to seek counseling to help with stress management. She was provided with resources. Reviewed signs and symptoms of worsening condition and when to seek treatment. Patient Instructions Update labs. Get flu and COVID vaccines in the fall. Start counseling to help with stressors. Brenna Limon ([place]) [phone] [employer] ([place]) [phone] [employer] ([place]) [phone] Www.Media Li²ght Entertainment.Cloudnexa is an online service. The following websites can also be helpful: www.psychologytoday.com www.meetSeakeeper.Cloudnexa www.theravive.Cloudnexa National Suicide Hotline is available 19/05 by call or text to 98-8 THEODORA HEAD Cosigned by Ziggy Harding MD at 06/24/2024 10:41 AM CDT documented in this encounter Plan of Treatment Upcoming Encounters Date Type Department Care Team (Late st Contact Info) Description 11/02/2024 8:00 AM CEMETERY WORKERS SUPERVISOR Office Visit [address] [place] [address] Ella Hodge [facility] 201 [facility] [place] [address] 01/19/2025 11:00 AM CDT Office Visit [facility] Medical [facility] - [place] [address] [facility] [place] [address] Stanley Jim MD [address] [place] [address] 06/23/2025 8:20 AM CDT Office Visit [facility] [address] [place], [place] [id number] Ella Hodge [facility] 201 [facility] [place] [address] documented as of this encounter Results * MAGNESIUM (06/23/2024 7:57 AM CDT) Pathologist [facility] MAGNESIUM 2.2 1.8 - 2.4 MG/DL 06/23/2024 9:05 AM CDT [facility] 06/23/2024 7:57 AM CDT Ella Hodge [facility] Final Res ult [facility] [address] [facility] [place] [address], * LIPID PANEL (06/23/2024 7:57 AM CDT) CHOLESTEROL 130 <200 MG/DL 06/23/2024 4:20 PM CDT [facility] TRIGLYCERIDES 61 <150 MG/DL 06/23/2024 4:20 PM CDT [facility] HDL 63 >40.0 MG/DL 06/23/2024 4:20 PM CDT [facility] LDL (CALCULATED) 55 <100 MG/DL 06/23/20 4:20 PM CDT [facility] NON HDL CHOLESTEROL 67 <130 MG/DL 06/23 4:20 PM CDT [facility] CHOL/HDL RATIO 2.1 0.0 - 4.5 06/23/2024 4:20 PM CDT [facility] VLDL CALCULATION 12 5 - 55 MG/DL 06/23/2024 4:20 PM CDT [facility] LIPID INTERPRETATION 06/23/2024 4:20 PM CDT [facility] Comment: [facility] REPORT RECOMMENDATIONS: ?ADULT ?CHILD ??LOW RISK: ?CHOLESTEROL ? <200 ? <170 ?TRIGLYCERIDE ?<150 ?--- ?HDL ? >=60 ?--- ?LDL ? <100 ? <110 ??BORDERLINE: ?CHOLESTEROL ? 200-239 ?? 170-199 ?TRIGLYCERIDE ?150-199 ? --- ?HDL ?40-59 ?--- ?LDL ? 100-159 ?? 110-129 ??HIGH RISK: ?CHOLESTEROL ? >=240 ?>=200 ?TRIGLYCERIDE ?>=200 ? --- ?HDL ?<40 ?--- ?LDL ? >=160 ?>=130 06/23/2024 7:57 AM CDT Ella Hodge DRINKING WATER TECHNICIAN LABORATORY Final Res ult [facility] [address] [place] [address], * (ABNORMAL) CBC W/DIFF AUTOMATED (06/23/2024 7:57 AM CDT) WBC 5.05 4.50 - 11.00 x10'3/uL 06/23/2024 8:07 AM CDT [facility] RBC 3.41(L) 4.00 - 5.20 x10'6/uL 06/23/2024 8:07 AM CDT [facility] HGB 10.6(L) 12.0 - 16.0 G/DL 06/23/2024 8:07 AM CDT [facility] HCT 32.1(L) 38.0 - 48.0 % 06/23/2024 8:07 AM CDT [facility] MCV 94.1 80.0 - 100.0 FL 06/23/2024 8:07 AM CDT [facility] MCH 31.1 26.0 - 34.0 PG 06/23/2024 8:07 AM CDT [facility] MCHC 33.0 31.0 - 37.0 G/DL 06/23/2024 8:07 AM CDT [facility] RDW 13.4 11.6 - 14.8 % 06/23/2024 8:07 AM CDT [facility] PLT 231 130 - 400 x10'3/uL 06/23/2024 8:07 AM CDT [facility] MPV 8.7 7.0 - 12.0 FL 06/23/2024 8:07 AM CDT [facility] CBC COMMENT AUTOMATED RBC MORPHOLOGY AND PLATELET EVALUATION NORMAL 06/23/2024 8:07 AM CDT [facility] NEUTROPHILS % 46.4 40.0 - 74.0 % 06/23/2024 8:07 AM CDT [facility] LYMPHOCYTES % 35.2 14.0 - 46.0 % 06/23/2024 8:07 AM CDT [facility] MONOCYTES % 11.3 4.0 - 13.0 % 06/23/2024 8:07 AM CDT [facility] EOSINOPHILS 6.1 0.0 - 7.0 % 06/23/2024 8:07 AM CDT [facility] BASOPHILS 0.8 0.0 - 3.0 % 06/23/2024 8:07 AM CDT [facility] IMMATURE GRANS % 0.2 0.0 - 0.43 % 06/23/2024 8:07 AM CDT [facility] NRBC % 0.0 % 06/23/2024 8:07 AM CDT [facility] ABS. NEUTROPHILS TOTAL 2.34 1.69 - 7.81 x10'3/uL 06/23/2024 8:07 AM CDT [facility] ABS. LYMPHOCYTES 1.78 0.21 - 5.42 x10'3/uL 06/23/2024 8:07 AM CDT [facility] ABS. MONOCYTES 0.57 0.04 - 1.37 x10'3/uL 06/23/2024 8:07 AM CDT [facility] ABS. EOSINOPHILS 0.31 0.00 - 0.68 x10'3/uL 06/23/2024 8:07 AM CDT [facility] ABS. BASOPHILS 0.04 0.00 - 0.08 x10'3/uL 06/23/2024 8:07 AM CDT [facility] ABS. IMMATURE GRANULOCYTES 0.01 0.00 - 0.06 x10'3/uL 06/23/2024 8:07 AM CDT [facility] ABS. NUCLEATED RBC'S 0.00 0.00 - 0.01 x10'3/uL 06/23/2024 8:07 AM CDT [facility] 06/23/2024 7:57 AM CDT us Ella Hodge [facility] Final Res ult [facility] [address] [facility] [place] [address], * (ABNORMAL) COMPREHENSIVE METABOLIC PANEL (06/23/2024 7:57 AM CDT) Pathologist [facility] GLUCOSE 105(H) 70 - 99 MG/DL 06/23/2024 9:05 AM CDT [facility] BUN 22(H) 7 - 18 MG/DL 06/23/2024 9:05 AM CDT [facility] CREATININE S/P/B 1.08 0.50 - 1.20 MG/DL 06/23/2024 9:05 AM CDT [facility] SODIUM S/P/B 142 136 - 145 MMOL/L 06/23/2024 9:05 AM CDT [facility] POTASSIUM S/P/B 5.0 3.5 - 5.1 MMOL/L 06/23/2024 9:05 AM CDT [facility] CHLORIDE S/P/B 108 100 - 108 MMOL/L 06/23/2024 9:05 AM CDT [facility] CO2 25.0 21.0 - 32.0 MMOL/L 06/23/2024 9:05 AM CDT [facility] CALCIUM S/P/B 9.3 8.5 - 10.1 MG/DL 06/23/2024 9:05 AM T [facility] BILIRUBIN TOTAL S/P/B 0.5 0.2 - 1.2 MG/DL 06/23/2024 9:05 AM T [facility] Comment: THIS ASSAY IS NOT RECOMMENDED FOR PATIENTS UNDERGOING TREATMENT WITH ELTROMBOPAG DUE TO THE POTENTIAL FOR FALSELY ELEVATED RESULTS. TOTAL PROTEIN S/P/B 7.3 6.4 - 8.2 G/DL 06/23/2024 9:05 AM T [facility] ALBUMIN S/P/B 3.8 3.4 - 5.0 G/DL 06/23/2024 9:05 AM T [facility] AST 21 15 - 37 U/L 06/23/2024 9:05 AM T [facility] ALT 22 14 - 55 U/L 06/23/2024 9:05 AM T [facility] ALKALINE PHOSPHATASE S/P/B 54 50 - 136 U/L 06/23/2024 9:05 AM T [facility] ANION GAP 9.0 5.0 - 15.0 MMOL/L 06/23/2024 9:05 AM T [facility] BUN CREATININE RATIO 20.4 6 - 26 06/23/2024 9:05 AM T [facility] A/G RATIO 1.1 1.0 - 2.5 RATIO 06/23/2024 9:05 AM T [facility] GFR ESTIMATE 52(L) >90 ML/MIN/1.7 3 M2 06/23/2024 9:05 AM T [facility] Comment: NOTE: eGFR is not calculated for patients <18 years of age. This is an estimated GFR calculation using the new CKD EPI creatinine equation without race and so does not require a correction factor for race. This estimated GFR should not be used for calculating drug doses. 06/23/2024 7:57 AM CDT Ella Hodge DRINKING WATER TECHNICIAN LABORATORY Final Res ult Performing Organization Address [facility] Co de Phone Number [facility] [address] [facility] [place] [address], [place] * (ABNORMAL) VITAMIN B-12 (06/23/2024 7:57 AM CDT) VITAMIN B12 S/P/B >6,000(H) 254 - 1,320 PG/ML 06/23/2024 4:20 PM CDT [facility] 06/23/2024 7:57 AM CDT Ella Hodge DRINKING WATER TECHNICIAN LABORATORY Final Res ult Performing Organization Address [facility] de Phone Number [facility] [address] [place] [address], [place] [phone] * THYROID STIM HORMONE TSH (06/23/2024 7:57 AM CDT) TSH 1.240 0.358 - 3.74 uIU/ML 06/23/2024 4:20 PM CDT [facility] Comment: HIGH DOSES OF BIOTIN MAY INTERFERE WITH THIS TEST RESULT. CORRELATION TO CLINICAL HISTORY AND PRESENTATION RECOMMENDED. 06/23/2024 7:57 AM CDT Ella Hodge DRINKING WATER TECHNICIAN LABORATORY Final Res ult Performing Organization Address [facility] Co de Phone Number [facility] [address] [place] [address], [place] [phone] documented in this encounter Visit Diagnoses Diagnosis Mixed hyperlipidemia- Primary Essential hypertension Unspecified essential hypertension Gastroesophageal reflux disease without esophagitis Esophageal reflux Chronic fatigue Other malaise and fatigue Anxiety Anxiety state, unspecified documented in this encounter Additional Health Concerns Assessment Noted Time PHQ-9 Depression Total Score: 0 05/09/20 23 10:49 AM CDT documented as of this encounter Care Teams Outboard Motor Assembler Relationship Specialty Start Date End Date Ella Hodge FNP [facility] [place] [address] PCP - General NURSE PRACTITIONER 05/09/23 Joon Lewis PA PHYSICIAN COURSE INSTRUCTOR 05/09/21 Callie Guerrero DO Technical Services Librarian OBGYN 06/14/21 [place] [address] [phone] GASTROENTEROLOGY 06/14/21 Sergey Ramey PA [address] [place] [address] [place] [address] PHYSICIAN COURSE INSTRUCTOR 06/14/21 Jony Pruitt DPM [address] [place] [address], [address] [place] [address] Referring Physician PODIATRY/SURGERY 06/14/21 [place] [address] [place] [address] ORTHOPAEDIC SURGERY 06/14/21 documented as of this encounter
--- OUTSIDE RECORDS SUMMARY | 2024-10-24 11:49 | XMS_ITS | Encounter Summary ---
Author Organization [facility] Address [facility]6 [facility]. [place], [place] [address] [place] [address] Care Team Providers Care Builder'S Labourer Name Role Phone Joon Lewis Unavailable [phone] Callie Guerrero DO Unavailable [phone] George Osorio MD Unavailable Sergey Ramey Unavailable Jony Pruitt DPM Unavailable [phone] Gama Graves MD Unavailable [phone] Ella Hodge [facility] Primary Care Provider [phone] Reason for Visit * Reason Onset Date Comments Refill Request 05/25/2024 Encounter Details Date Type Department Care Team (Late st Contact Info) Description 05/25/2024 Telephone [place] [address] [place] [address] Ella Hodge [facility] [address] [place] [address] Refill Request Social History Tobacco Use Types Packs/Day Years [...] Date Recorded Patient Health Questionnaire-2 Score 0 05/09/2023 Comments No Sex and Gender Information Value Date Recorded Sex Assigned at Not on file Legal Sex Female 5:51 PM CDT Gender Identity Not on file Sexual Orientation Not on file documented as of this encounter Progress Notes * Harman العراقي LPN - 05/28/2024 10:50 AM CDT I called pt and she stated her already picked it up this am. * Fany Wesley - 05/28/2024 9:40 AM CDT Pt called back stating the pharmacy harjinder they did not receive the Famotidine prescription. Pt askingif it can be resent to the pharmacy. * Joanna Brown - 05/28/2024 9:25 AM CDT Patient scheduled appointment for medication management 06/22/24 with Ella Hodge. * Harman العراقي LPN - 05/26/2024 11:50 AM CDTAddended by: HARMAN العراقي on: 05/26/2024 11:50 AM Modules accepted: Orders * Harman العراقي LPN - 05/26/2024 11:50 AM CDT RF made and message left with RX, OV needed. * THEODORA Kendall - 05/26/2024 11:44 AM CDT Ok to give #90 will need OV for med management, not urgent * Harman العراقي LPN - 05/26/2024 9:13 AM CDT Famotidine. * THEODORA [place]all - 05/25/2024 4:45 PM CDT What medication is she asking for? * Harman العراقي LPN - 05/25/2024 3:25 PM CDT OV 05/09/2023 cristina. RTC 6 months. RF 12/31/2023 #60 0 RF. documented in this encounter Plan of Treatment Upcoming Encounters Date Type Department Care Team (Late st Contact Info) Description 11/02/2024 8:00 AM CITRUS FRUIT COLORER Office Visit [address] [place] [address] Ella Hodge FNP [address] [facility] [place] [address] 01/19/2025 11:00 AM CDT Office Visit [facility] Medical Group Pul[facility] - [place] [address] [facility] [address] [place], [place] [phone] Stanley Jim MD [address] [place] [address] 06/23/2025 8:20 AM CDT Office Visit [address] [place] [address] Ella Hodge FNP [address] [place] [address] documented as of this encounter Visit Diagnoses Diagnosis Gastroesophageal reflux disease without esophagitis Esophageal reflux documented in this encounter Additional Health Concerns Assessment Noted Time PHQ-9 Depression Total Score: 0 05/09/20 10:49 AM CDT documented as of this encounter Care Teams Builder'S Labourer Relationship Specialty Start Date End Date Ella Hodge FNP [address] [place] [address] PCP - General NURSE PRACTITIONER 05/09/23 Joon Lewis PA PHYSICIAN DIABETES SPECIALIST 05/09/21 Callie Guerrero DO Container Crane Operator OBGYN 06/14/21 [place] [address] [phone] GASTROENTEROLOGY 06/14/21 Sergey Ramey PA [address] [place] [address] [place] [address] PHYSICIAN DIABETES SPECIALIST 06/14/21 Jony Pruitt DPM [facility], [address] [place] [address] Referring Physician PODIATRY/SURGERY 06/14/21 [place] [address] [place] [address] ORTHOPAEDIC SURGERY 06/14/21 documented as of this encounter
--- OUTSIDE RECORDS SUMMARY | 2024-10-24 11:50 | XMS_ITS | Encounter Summary ---
Author Organization [facility] Address [facility]6 [facility] [place], [place] [address] [place] [address] Care Team Providers Care Streetcar Repairer Name Role Phone Joon Lewis Unavailable [phone] Callie Guerrero DO Unavailable George Osorio MD Unavailable Sergey Ramey Unavailable [phone] Jony Pruitt DPM Unavailable [phone] Gama Graves MD Unavailable [phone] Ella Hodge BUSINESS SERVICES ADMINISTRATOR Primary Care Provider [phone] Encounter Details Date Type Department Care Team (Latest Contact Info) Description 10/23/2023 Travel Social History Tobacco Use Types Packs/Day [...] st Contact Info) Description 11/02/2024 8:00 AM INNERSOLE MAKER Office Visit [address] [place] [address] Ella Hodge FNP 201 [facility] [place] [address] 01/19/2025 11:00 AM CDT Office Visit [facility] Pulmonology Specialty Clinic - [address] [place] [address] Stanley Jim MD [address] [place] [address] 06/23/2025 8:20 AM CDT Office Visit [address] [place] [address] Ella Hodge FNP [address] [place] [address] [place] [address] documented as of this encounter Visit Diagnoses Not on filedocumented in this encounter Additional Health Concerns Assessment Noted Time PHQ-9 Depression Total Score: 0 05/09/20 23 10:49 AM CDT documented as of this encounter Care Teams Streetcar Repairer Relationship Specialty Start Date End Date Ella Hodge FNP [address] [place] [address] [place] [address] PCP - General NURSE PRACTITIONER 05/09/23 Joon Lewis PA PHYSICIAN ARTISTIC ASSOCIATE 05/09/21 Callie Guerrero DO Rotary Engine Assembler OBGYN 06/14/21 [place] [address] [address] [place] [phone] GASTROENTEROLOGY 06/14/21 Sergey Ramey PA [address] [place] [address] PHYSICIAN ARTISTIC ASSOCIATE 06/14/21 Jony Pruitt DPM [address] [place] [address], [address] [place] [address] Referring Physician PODIATRY/SURGERY 06/14/21 [place] [address] [place] [address] ORTHOPAEDIC SURGERY 06/14/21 documented as of this encounter
--- OUTSIDE RECORDS SUMMARY | 2024-10-24 11:50 | XMS_ITS | Encounter Summary ---
Author Organization [facility] Address [facility]6 [facility]. [place], [place] [address] [place] [address] Care Team Providers Care Museum Specialist Name Role Phone Joon Lewis Unavailable [phone] Callie Guerrero DO Unavailable [phone] George Osorio MD Unavailable Sergey Ramey Unavailable Jony Pruitt DPM Unavailable [phone] Gama Graves MD Unavailable [phone] Ella Hodge [facility] Primary Care Provider [phone] Reason for Visit * Physical Therapy (Routine) - Closed Specialty Diagnoses / Procedures Referred By Chet t Referred To Contact PHYSICAL THERAPY / [facility] Physical Therapy Diagnoses Pain in left knee Procedures Fabio Oshea MD [address] [facility] [address] [place] [address] Phone: tel: fax: Kathleen Hamilton, PT [address] [place] [address] Phone: tel: fax:[phone] Referral ID Status Reason Start Date Expiration Date V isits Requested Visits Authorized [id number] Closed Physical Therapy 10/13/2023 99 99 Encounter Details Date Type Department Care Team (Late st Contact Info) Description 10/23/2023 10:52 AM THEOLOGY PROFESSOR - 10/23/2023 11:59 PM THEOLOGY PROFESSOR Hospital Encounter [facility] Therapy [address] [address] Fabio Aguilar MD [address] [place] [address] Belkys Yadav PTA Discharge Disposition: Home or Self Care (Routine [...] tablet (10 mg total) by mouth daily. NON FORMULARY C- pap ; q hs omega-3 fatty acid 1000 MG capsule Take 1 capsule (1,000 mg total) by mouth 2 (two) times daily. vitamin D3, cholecalciferol, 75 MCG (3000 UT) Tab tablet Take 1,000 Units by mouth daily. zinc gluconate 50 MG Tab Take 1 tablet (50 mg total) by mouth daily. butalbital-acetamino phen-caffeine 50-325-40 MG tablet Take 1 tablet by mouth every 4 (four) hours as needed. 4 Calcium Carbonate-Vitamin D (CALCIUM 500 + D OR) Organic Plant Calcium with vitamin D3 and magnesium 4 famotidine (PEPCID) 20 MG tabletIndications:Ga stroesophageal reflux disease without esophagitis TAKE 1 TABLET BY MOUTH TWICE A DAY 180 tablet 1 05/28/2023 4 hypromellose 0.3 % ophthalmic gel Place into both eyes 2 (two) times daily. 4 IPRATROPIUM 0.03 % nasal sprayIndications:Art al congestion USE 2 SPRAYS INTO EACH NOSTRIL EVERY 12 HOURS 30 mL 10/22/2021 4 lisinopril (PRINIVIL) 20 MG tabletIndications:Es sential hypertension TAKE 1 TABLET BY MOUTH EVERY DAY 90 tablet 1 07/10/2023 4 montelukast (SINGULAIR) 10 MG tabletIndications:Ch ronic rhinitis TAKE 1 TABLET BY MOUTH EVERY DAY 90 tablet 1 07/28/2023 4 rosuvastatin (CRESTOR) 20 MG tabletIndications:Mi xed hyperlipidemia TAKE 1 TABLET BY MOUTH EVERYDAY AT BEDTIME 90 tablet 1 05/28/2023 4 triamcinolone 0.1 % creamIndications:Bug bite, initial encounter Apply topically 3 (three) times daily. 15 g 02/19/2022 4 documented as of this encounter Progress Notes * Belkys Yadav, WIRELINE SUPERVISOR - 10/23/2023 11:00 AM CST Physical Therapy Visit Note: Patient Name: Love Catherine Diagnosis: Pain in left knee (primary encounter diagnosis) SUBJECTIVE Therapy Visit Treatment Day: 3 Total Approved Visits: 01/05 Therapy Plan of Care: ther ex, manual, neuro, gait, estim, ice/heat Current Therapy Orders: eval and treat Diagnosis: L knee pain Referring Provider: Dr. Lauren Ramos MD Visit: 6 weeks Precautions: none Restrictions: none Subjective Note: Love states she has not pain at this time and feel that she is doing pretty good. Compliance to Home Program: Good Pain Current Location of Pain: L knee Current Pain Level: 0/10 Other (comments): sore OBJECTIVE Treatment provided today: Therapeutic Exercise - 69706 Number of Minutes - 53762: 45 Cardio Equipment: NuStep L5 x 10 min Exercise: 1/2 roll stretch Exercise: standing: HR/TR, marching, hip abd/ext, minisquats Exercise: seated HS stretch Exercise: LAQ, HS curls Exercise: SLR Exercise: HL hip abd/add; clamshells Manual Therapy - 18679 Number of Minutes - 58478: 10 Intervention: HS stretch Intervention: ITB stretch Intervention: gastroc stretch Intervention: patellar mobs Modalities Non-Timed Electrical Stimulation Unattended - 53745/G0283: L knee post Hot Pack - 41058: L knee post Home Exercise Program Current Home Exercise Program: issued 10/13/23 Education Was Education Provided: Yes Topic: HEP review Recipient: Patient Method: Verbal Response: Verbalized understanding, Demonstrates adequately Barriers: None ASSESSMENT Assessment Note: Love is not having as much pain and has been using her rolling pin consistantly at home and ITB is feeling better and is not as tight. Continue with strengthening and stretching to increase functional mobility and decrease pain. Finished therapy treatment with estim and cold pack to L kneewith no adverse effects. Response to Treatment : Good Goal Progression: Steady Continue on Functional Deficit of: L knee mobility and strength PLAN Plan Next Visit Plan: Cont per current PT poc; progressing per pt tolerance Total Time Total Time in Minutes: 55 Timed Code Treatment Minutes : 55 LOGY PROFESSOR documented in this encounter Plan of Treatment Upcoming Encounters Date Type Department Care Team (Late st Contact Info) Description 11/02/2024 8:00 AM THEOLOGY PROFESSOR Office Visit [address] [place] [address] Ella Hodge FNP [address] [place] [address] [place] [address] 01/19/2025 11:00 AM CDT Office Visit [facility] [address] [place] [address] Stanley Jim MD [address] [place] [address] 06/23/2025 8:20 AM CDT Office Visit [address] [place] [address] Ella Hodge FNP 201 [facility] [place] [address] documented as of this encounter Visit Diagnoses Diagnosis Pain in left knee- Primary Pain in joint, lower leg documented in this encounter Additional Health Concerns Assessment Noted Time PHQ-9 Depression Total Score: 0 05/09/20 10:49 AM CDT documented as of this encounter Care Teams Museum Specialist Relationship Specialty Start Date End Date Ella Hodge FNP [facility] [place] [address] PCP - General NURSE PRACTITIONER 05/09/23 Joon Lewis PA PHYSICIAN WAREHOUSE HANDLER 05/09/21 Callie Guerrero DO Front End Loader Operator OBGYN 06/14/21 [place] [address] [phone] GASTROENTEROLOGY 06/14/21 Sergey Ramey PA [address] [place] [address] [place] [address] PHYSICIAN WAREHOUSE HANDLER 06/14/21 Jony Pruitt DPM [address] [place] [address], [address] [place] [address] Referring Physician PODIATRY/SURGERY 06/14/21 [place] [address] [place] [address] ORTHOPAEDIC SURGERY 06/14/21 documented as of this encounter
--- OUTSIDE RECORDS SUMMARY | 2024-10-24 11:50 | XMS_ITS | Encounter Summary ---
Author Organization [facility] Address [facility]. [place], [place] [address] [place] [address] Care Team Providers Care Parish Nurse Name Role Phone Joon Lewis Unavailable [phone] Callie Guerrero DO Unavailable [phone] George Osorio MD Unavailable Sergey Ramey Unavailable Jony Pruitt DPM Unavailable [phone] Gama Graves MD Unavailable [phone] Ella Hodge [facility] Primary Care Provider [phone] Reason for Visit * Physical Therapy (Routine) - Closed Specialty Diagnoses / Procedures Referred By Chet t Referred To Contact PHYSICAL THERAPY / [facility] Physical Therapy Diagnoses Pain in left knee Procedures Fabio Oshea MD [address] [facility] [address] [place] [address] Phone: tel: fax: Kathleen Hamiltno, PT [address] [place] [address] Phone: tel: fax:[phone] Referral ID Status Reason Start Date Expiration Date V isits Requested Visits Authorized [id number] Closed Physical Therapy 10/13/2023 99 99 Encounter Details Date Type Department Care Team (Late st Contact Info) Description 10/30/2023 8:26 AM GAS INSPECTOR - 10/30/2023 11:59 PM GAS INSPECTOR Hospital Encounter [facility] Therapy [address] [place] [address] Fabio Aguilar MD [address] [place] [address] Belkys Yadav PTA Discharge Disposition: [...] this encounter Progress Notes * Belkys Yadav, COIN MACHINE COLLECTOR - 10/30/2023 8:30 AM CST Physical Therapy Visit Note: Patient Name: Love Catherine Diagnosis: Pain in left knee (primary encounter diagnosis) SUBJECTIVE Therapy Visit Treatment Day: 4 Total Approved Visits: 02/05 Therapy Plan of Care: ther ex, manual, neuro, gait, estim, ice/heat Current Therapy Orders: eval and treat Diagnosis: L knee pain Referring Provider: Dr. Lauren Ramos MD Visit: 6 weeks Precautions: none Restrictions: none Subjective Note: Patient states she feels her knee is improving and is not bothering her today, just has pain once in a while. Compliance to Home Program: Good Pain Current Location of Pain: L knee Current Pain Level: 0/10 Other (comments): sore OBJECTIVE Treatment provided today: Therapeutic Exercise - 71985 Number of Minutes - 01839: 46 Cardio Equipment: NuStep L3 x 10 min Exercise: 1/2 roll stretch Exercise: standing: HR/TR, marching, hip abd/ext, minisquats Exercise: seated HS stretch Exercise: LAQ, HS curls Exercise: SLR Exercise: HL hip abd/add; clamshells Exercise: step ups Manual Therapy - 41027 Number of Minutes - 88359: 12 Intervention: HS stretch Intervention: ITB stretch Intervention: gastroc stretch Intervention: patellar mobs Modalities Non-Timed Electrical Stimulation Unattended - Minutes- 85079: 15 Electrical Stimulation Unattended - 88398/G0283: L knee post Hot/Cold Pack Minutes - 84652: 15 Hot Pack - 83434: L knee post Total Non- Timed Modality Minutes: 30 Home Exercise Program Current Home Exercise Program: issued 10/13/23 Education Was Education Provided: Yes Topic: HEP review Recipient: Patient Method: Verbal Response: Verbalized understanding, Demonstrates adequately Barriers: None ASSESSMENT Assessment Note: Love tolerated 1 new exercises exercises today was able to complete exercise program without any difficulty. Does have some tenderness along L ITB and does benefit from ITB STM. Finished treatment with lakesha and cold pack to L knee with no adverse effects. Response to Treatment : Good Goal Progression: Steady Continue on Functional Deficit of: L knee mobility and strength PLAN Plan Next Visit Plan: Cont per current PT poc; progressing per pt tolerance Total Time Total Time in Minutes: 88 Timed Code Treatment Minutes : 58 INSPECTOR documented in this encounter Plan of Treatment Upcoming Encounters Date Type Department Care Team (Late st Contact Info) Description 11/02/2024 8:00 AM GAS INSPECTOR Office Visit [address] [place] [address] Ella Hodge FNP 201 [facility] [place] [address] 01/19/2025 11:00 AM CDT Office Visit [facility] Medical Group [facility] - [place] [address] [facility] [place] [address] Stanley Jim MD [address] [place] [address] 06/23/2025 8:20 AM CDT Office Visit [address] [place] [address] Ella Hodge FNP [address] [place] [address] documented as of this encounter Visit Diagnoses Diagnosis Pain in left knee- Primary Pain in joint, lower leg documented in this encounter Additional Health Concerns Assessment Noted Time PHQ-9 Depression Total Score: 0 05/09/20 10:49 AM CDT documented as of this encounter Care Teams Parish Nurse Relationship Specialty Start Date End Date Ella Hodge FNP [address] [place] [address] PCP - General NURSE PRACTITIONER 05/09/23 Joon Lewis PA PHYSICIAN THIRD STEEL POURER 05/09/21 Callie Guerrero DO Rides Supervisor OBGYN 06/14/21 [place] [address] [phone] GASTROENTEROLOGY 06/14/21 Sergey Ramey PA [address] [place] [address] [place] [address] PHYSICIAN THIRD STEEL POURER 06/14/21 Jony Pruitt DPM [facility], [address] [place] [address] Referring Physician PODIATRY/SURGERY 06/14/21 [place] [address] [place] [address] ORTHOPAEDIC SURGERY 06/14/21 documented as of this encounter
--- OUTSIDE RECORDS SUMMARY | 2024-10-24 11:50 | XMS_ITS | Encounter Summary ---
Author Organization [facility] Address [facility] [place] [address] [place] [address] Care Team Providers Care Precision Dyer Name Role Phone Joon Lewis Unavailable [phone] Callie Guerrero DO Unavailable [phone] George Osorio MD Unavailable Sergey Ramey Unavailable Jony Pruitt DPM Unavailable [phone] Gama Graves MD Unavailable Ella Hodge LAYAWAY CLERK Primary Care Provider [phone] Encounter Details Date Type Department Care Team (Latest Contact Info) Description 11/04/2023 Travel Social History Tobacco Use Types Packs/Day [...] st Contact Info) Description 11/02/2024 8:00 AM ELECTRIC BLASTING CAP ASSEMBLER Office Visit [address] [place] [address] Ella Hodge FNP 201 [facility] [place] [address] 01/19/2025 11:00 AM CDT Office Visit [facility] Medical Group Pulmonology Specialty Clinic - [address] [place] [address] Stanley Jim MD [address] [place] [address] 06/23/2025 8:20 AM CDT Office Visit [address] [place] [address] Ella Hodge FNP [address] [place] [address] [place] [address] documented as of this encounter Visit Diagnoses Not on filedocumented in this encounter Additional Health Concerns Assessment Noted Time PHQ-9 Depression Total Score: 0 05/09/20 23 10:49 AM CDT documented as of this encounter Care Teams Precision Dyer Relationship Specialty Start Date End Date Ella Hodge FNP [address] [place] [address] [place] [address] PCP - General NURSE PRACTITIONER 05/09/23 Joon Lewis PA PHYSICIAN REQUISITION APPROVER 05/09/21 Callie Guerrero DO Welcome Wagon Host/Hostess OBGYN 06/14/21 [place] [address] [address] [place] [address] GASTROENTEROLOGY 06/14/21 Sergey Ramey PA [address] [place] [address] PHYSICIAN REQUISITION APPROVER 06/14/21 Jony Pruitt DPM [address] [place] [address], [address] [place] [address] Referring Physician PODIATRY/SURGERY 06/14/21 [place] [address] [place] [address] ORTHOPAEDIC SURGERY 06/14/21 documented as of this encounter
--- OUTSIDE RECORDS SUMMARY | 2024-10-24 11:50 | XMS_ITS | Encounter Summary ---
Author Organization [facility] Address [facility]6 [facility]. [place], [place] [address] [place] [address] Care Team Providers Care Dental Appliance Mechanic Name Role Phone Joon Lewis Unavailable [phone] Callie Guerrero DO Unavailable [phone] George Osorio MD Unavailable Sergey Ramey Unavailable Jony Pruitt DPM Unavailable [phone] Gama Graves MD Unavailable [phone] Ella Hodge [facility] Primary Care Provider [phone] Reason for Visit * Reason Comments Knee Pain * Physical Therapy (Routine) - Closed Specialty Diagnoses / Procedures Referred By Contac t Referred To Contact PHYSICAL THERAPY / [facility] Physical Therapy Diagnoses Pain in left knee Procedures Fabio Oshea MD [address] [facility] [address] [place] [address] Phone: tel: fax: Kathleen [place], PT [address] [place] [address] Phone: tel: fax: Referral ID Status Reason Start Date Expiration Date V isits Requested Visits Authorized [id number] Closed Physical Therapy 10/13/2023 99 99 Encounter Details Date Type Department Care Team (Late st Contact Info) Description 11/06/2023 8:52 AM HEARING AID MECHANIC - 11/06/2023 11:59 PM HEARING AID MECHANIC Hospital Encounter [facility] Therapy [address] [place] [address] Fabio Aguilar MD [address] [place] [address] [place] [address] [place] [address] Knee Pain Discharge Disposition: Home or Self Care (Routine [...] mouth every 4 (four) hours as needed. Calcium Carbonate-Vitamin D (CALCIUM 500 + D [...] as of this encounter Progress Notes * Stephanie Zamora, PT - 11/06/2023 9:00 AM CSTEncounter addended by: Stephanie Zamora PT on: 12/05/2023 1:59 PM Actions taken: Clinical Note Signed ING AID MECHANIC * Stephanie Zamora, PT - 11/06/2023 9:00 AM CST Physical Therapy Visit Note: Patient Name: Love Catherine Diagnosis: Pain in left knee (primary encounter diagnosis) SUBJECTIVE Therapy Visit Total Approved Visits: 04/07 Therapy Plan of Care: ther ex, manual, neuro, gait, estim, ice/heat Current Therapy Orders: eval and treat Diagnosis: L knee pain Referring Provider: Dr. Lauren Ramos MD Visit: 6 weeks Precautions: none Restrictions: none Subjective Note: Love reports that her knee is feeling better but she does complain of tightness in her posterior leg. She feels she is progressing well. Compliance to Home Program: Good Pain Current Location of Pain: L knee Other (comments): sore OBJECTIVE Treatment provided today: Therapeutic Exercise - 57266 Number of Minutes - 40496: 45 Cardio Equipment: NuStep L3 x 10 min Exercise: 1/2 roll stretch Exercise: standing: HR/TR, marching, hip abd/ext, minisquats x 20 Exercise: seated HS stretch Exercise: LAQ, HS curls Exercise: SLR Exercise: HL hip abd/add; clamshells Exercise: step ups x 20 B Manual Therapy - 62869 Intervention: HS stretch Intervention: ITB stretch Intervention: gastroc stretch Intervention: patellar mobs Modalities Non-Timed Electrical Stimulation Unattended Minutes- G0283: 15 Electrical Stimulation Unattended - 84845/G0283: L knee post Hot Pack - 46874: L knee post Total Non- Timed Modality Minutes: 15 Home Exercise Program Current Home Exercise Program: issued 10/13/23 Education Was Education Provided: Yes Topic: HEP review Recipient: Patient Method: Verbal Response: Verbalized understanding, Demonstrates adequately Barriers: None ASSESSMENT Assessment Note: Treatment focused on LE stretching along with strengthening to help with pain and stabilization. Love was educated on performing calf stretches and HS stretching at home to help with pain and tightness. Response to Treatment : Good Goal Progression: Steady Continue on Functional Deficit of: L knee mobility and strength PLAN Plan Next Visit Plan: Cont per current PT poc; progressing per pt tolerance Total Time Total Time in Minutes: 60 Timed Code Treatment Minutes : 45 Addendum 12/05/23: Love did not return for further visits due to being ill and her spouse being ill as well. She did not meet her goals. This note will serve as her DC summary. ING AID MECHANIC ING AID MECHANIC documented in this encounter Plan of Treatment Upcoming Encounters Date Type Department Care Team (Late st Contact Info) Description 11/02/2024 8:00 AM HEARING AID MECHANIC Office Visit [address] [place] [address] Ella Hodge FNP [address] [facility] [place] [address] 01/19/2025 11:00 AM CDT Office Visit [facility] Medical Group Pulmonology Specialty Clinic - [address] [place] [address] Stanley Jim MD [address] [place] [address] 06/23/2025 8:20 AM CDT Office Visit [facility] [address] [facility] [place] [address] Ella Hodge FNP [address] [facility] [place] [address] documented as of this encounter Visit Diagnoses Diagnosis Pain in left knee- Primary Pain in joint, lower leg documented in this encounter Additional Health Concerns Assessment Noted Time PHQ-9 Depression Total Score: 0 05/09/20 10:49 AM CDT documented as of this encounter Care Teams Dental Appliance Mechanic Relationship Specialty Start Date End Date Ella Hodge FNP [address] [facility] [place] [address] PCP - General NURSE PRACTITIONER 05/09/23 Joon Lewis PA PHYSICIAN PASSENGER INTERLINE CLERK 05/09/21 Callie Guerrero DO Cutter Tender OBGYN 06/14/21 [place] [address] [phone] GASTROENTEROLOGY 06/14/21 Sergey Ramey PA [address] [place] [address] [place] [address] PHYSICIAN PASSENGER INTERLINE CLERK 06/14/21 Jony Pruitt DPM [address] [place] [address], [address] [place] [address] Referring Physician PODIATRY/SURGERY 06/14/21 [place] [address] [place] [address] ORTHOPAEDIC SURGERY 06/14/21 documented as of this encounter
--- OUTSIDE RECORDS SUMMARY | 2024-10-24 11:50 | XMS_ITS | Encounter Summary ---
Author Organization [facility] Address [facility]. [place], [place] [address] [place] [address] Care Team Providers Care Resistor Winder Name Role Phone Joon Lewis Unavailable [phone] Callie Guerrero DO Unavailable [phone] George Osorio MD Unavailable Sergey Ramey Unavailable [phone] Jony Pruitt DPM Unavailable [phone] Gama Graves MD Unavailable [phone] Ella Hodge TONGUER Primary Care Provider [phone] Encounter Details Date Type Department Care Team (Latest Contact Info) Description 12/30/2023 Scan HEALTH INFO SRVCS Scanned, Doc Med [...] st Contact Info) Description 11/02/2024 8:00 AM HEAD OF ETHICS AND COMPLIANCE Office Visit [address] [place] [address] Ella Hodge FNP 201 [facility] [place] [address] 01/19/2025 11:00 AM CDT Office Visit [facility] Medical Group Pulmonology Specialty Clinic - [address] [place] [address] Stanley Jim MD [address] [place] [address] 06/23/2025 8:20 AM CDT Office Visit [address] [place] [address] Ella Hodge FNP [address] [place] [address] [place] [address] documented as of this encounter Visit Diagnoses Not on filedocumented in this encounter Additional Health Concerns Assessment Noted Time PHQ-9 Depression Total Score: 0 05/09/20 10:49 AM CDT documented as of this encounter Care Teams Resistor Winder Relationship Specialty Start Date End Date Ella Hodge FNP [address] [place] [address] [place] [address] PCP - General NURSE PRACTITIONER 05/09/23 Joon Lewis PA PHYSICIAN DENTAL BILLING SPECIALIST 05/09/21 Callie Guerrero DO Special Distribution Clerk OBGYN 06/14/21 [place] [address] [facility] [address] [place] [address] GASTROENTEROLOGY 06/14/21 Sergey Ramey PA [address] [place] [address] PHYSICIAN DENTAL BILLING SPECIALIST 06/14/21 Jony Pruitt DPM [address] [place] [address], [address] [place] [address] Referring Physician PODIATRY/SURGERY 06/14/21 [place] [address] [place] [address] ORTHOPAEDIC SURGERY 06/14/21 documented as of this encounter
--- OUTSIDE RECORDS SUMMARY | 2024-10-24 11:50 | XMS_ITS | Encounter Summary ---
Author Organization [facility] Address [facility]6 [facility]. [place], [place] [address] [place] [address] Care Team Providers Care Leather Leveler Name Role Phone Joon Lewis Unavailable [phone] Callie Guerrero DO Unavailable [phone] George Osorio MD Unavailable Sergey Ramey Unavailable [phone] Jony Pruitt DPM Unavailable Gama Graves MD Unavailable [phone] Elal Hodge [facility] Primary Care Provider [phone] Reason for Visit * Reason Comments Knee Pain * Physical Therapy (Routine) - Closed Specialty Diagnoses / Procedures Referred By Contac t Referred To Contact PHYSICAL THERAPY / [facility] Physical Therapy Diagnoses Pain in left knee Procedures Fabio Oshea MD [address] [facility] [address] [place] [address] Phone: tel: fax: Kathleen Hamilton, PT [address] [place] [address] Phone: tel: fax: Referral ID Status Reason Start Date Expiration Date V isits Requested Visits Authorized [id number] Closed Physical Therapy 10/13/2023 99 99 Encounter Details Date Type Department Care Team (Late st Contact Info) Description 11/04/2023 8:27 AM AUTO GLASS INSTALLER - 11/04/2023 11:59 PM AUTO GLASS INSTALLER Hospital Encounter [facility] Therapy [address] [place] [address] Fabio Aguilar MD [address] [place] [address] Nikolas Vaca, PT [address] [facility] [place] [address] Knee Pain Discharge Disposition: Home or Self [...] as of this encounter Progress Notes * Nikolas Vaca, PT - 11/04/2023 8:30 AM CST Physical Therapy Visit Note: Patient Name: Love Catherine Diagnosis: Pain in left knee (primary encounter diagnosis) SUBJECTIVE Therapy Visit Total Approved Visits: 03/07 Therapy Plan of Care: ther ex, manual, neuro, gait, estim, ice/heat Current Therapy Orders: eval and treat Diagnosis: L knee pain Referring Provider: Dr. Lauren Ramos MD Visit: 6 weeks Precautions: none Restrictions: none Subjective Note: Love says her knee is feeling pretty good this morning and she believes she is making progress. She thinks she will always have a little bit of a problem with it, but she says she is okay with that as long as she can keep moving and stay active Compliance to Home Program: Good Pain Current Location of Pain: L knee Other (comments): sore OBJECTIVE Treatment provided today: Therapeutic Exercise - 89316 Number of Minutes - 23887: 43 Cardio Equipment: NuStep L3 x 10 min Exercise: 1/2 roll stretch Exercise: standing: HR/TR, marching, hip abd/ext, minisquats x 20 Exercise: seated HS stretch Exercise: LAQ, HS curls Exercise: SLR Exercise: HL hip abd/add; clamshells Exercise: step ups x 20 B Manual Therapy - 73148 Number of Minutes - 60182: 12 Intervention: HS stretch Intervention: ITB stretch Intervention: gastroc stretch Intervention: patellar mobs Modalities Non-Timed Electrical Stimulation Unattended - 87197/G0283: L knee post Hot Pack - 62236: L knee post Home Exercise Program Current Home Exercise Program: issued 10/13/23 Education Was Education Provided: Yes Topic: HEP review Recipient: Patient Method: Verbal Response: Verbalized understanding, Demonstrates adequately Barriers: None ASSESSMENT Assessment Note: Love tolerated exercise well during this session. She reports popping of her L knee duringLAQ, but she does not experience a painful popping. She presents with stiffness of patella, so mobilizations were performed to miproved patellar mobility. Session finished with MHP and IFC applied Samia knee in sitting for comfort. No adverse effects noted. Response to Treatment : Good Goal Progression: Steady Continue on Functional Deficit of: L knee mobility and strength PLAN Plan Next Visit Plan: Cont per current PT poc; progressing per pt tolerance Total Time Total Time in Minutes: 55 Timed Code Treatment Minutes : 55 GLASS INSTALLER documented in this encounter Plan of Treatment Upcoming Encounters Date Type Department Care Team (Late st Contact Info) Description 11/02/2024 8:00 AM AUTO GLASS INSTALLER Office Visit [facility] [address] [facility] [address] [place] [id number] Ella Hodge FNP [address] [place] [address] [place] [address] 01/19/2025 11:00 AM CDT Office Visit [facility] Medical Group Pulmonology Specialty Clinic - [address] [place] [address] Stanley Jim MD [address] [place] [address] [place] [address] 06/23/2025 8:20 AM CDT Office Visit [facility] [address] [place] [address] Ella Hodge FNP [address] [place] [address] documented as of this encounter Visit Diagnoses Diagnosis Pain in left knee- Primary Pain in joint, lower leg documented in this encounter Additional Health Concerns Assessment Noted Time PHQ-9 Depression Total Score: 0 05/09/20 10:49 AM CDT documented as of this encounter Care Teams Leather Leveler Relationship Specialty Start Date End Date Ella Hodge FNP [facility] [place] [address] PCP - General NURSE PRACTITIONER 05/09/23 Joon Lewis PA PHYSICIAN SPECIAL EFFECTS DESIGNER 05/09/21 Callie Guerrero DO Commercial Counsel OBGYN 06/14/21 [place] [address] [address] GASTROENTEROLOGY 06/14/21 Sergey Ramey PA [address] [place] [address] [place] [address] PHYSICIAN SPECIAL EFFECTS DESIGNER 06/14/21 Jony Pruitt DPM [address] [place] [address], [address] [place] [address] Referring Physician PODIATRY/SURGERY 06/14/21 [place] [address] [place] [address] ORTHOPAEDIC SURGERY 06/14/21 documented as of this encounter
--- OUTSIDE RECORDS SUMMARY | 2024-10-24 11:50 | XMS_ITS | Encounter Summary ---
Author Organization [facility] Address [facility]. [place], [place] [address] [place] [address] Care Team Providers Care Estimate Clerk Name Role Phone Joon Lewis Unavailable [phone] Callie Guerrero DO Unavailable [phone] George Osorio MD Unavailable Sergey Ramey Unavailable [phone] Jony Pruitt DPM Unavailable [phone] Gama Graves MD Unavailable [phone] Ella Hodge CENTRAL SCHEDULER Primary Care Provider [phone] Encounter Details Date Type Department Care Team (Latest Contact Info) Description 12/23/2023 Scan HEALTH INFO SRVCS Scanned, Doc Med [...] st Contact Info) Description 11/02/2024 8:00 AM INSTALL AND REPAIR TECHNICIAN Office Visit [address] [place] [address] Ella Hodge FNP [address] [facility] [place] [address] 01/19/2025 11:00 AM CDT Office Visit [facility] Medical Group Pulmonology Specialty Clinic - [address] [place] [address] Stanley Jim MD [address] [place] [address] 06/23/2025 8:20 AM CDT Office Visit [address] [place] [address] Ella Hodge FNP [address] [place] [address] [place] [address] documented as of this encounter Visit Diagnoses Not on filedocumented in this encounter Additional Health Concerns Assessment Noted Time PHQ-9 Depression Total Score: 0 05/09/20 10:49 AM CDT documented as of this encounter Care Teams Estimate Clerk Relationship Specialty Start Date End Date Ella Hodge FNP [address] [place] [address] [place] [address] PCP - General NURSE PRACTITIONER 05/09/23 Joon Lewis PA PHYSICIAN MANAGER TECHNICAL TRAINING 05/09/21 Callie Guerrero DO Machinist Tool And Die OBGYN 06/14/21 [place] [address] [facility] [address] [place] [address] GASTROENTEROLOGY 06/14/21 Sergey Ramey PA [address] [place] [address] PHYSICIAN MANAGER TECHNICAL TRAINING 06/14/21 Jony Pruitt DPM [address] [place] [address], [address] [place] [address] Referring Physician PODIATRY/SURGERY 06/14/21 [place] [address] [place] [address] ORTHOPAEDIC SURGERY 06/14/21 documented as of this encounter
--- OUTSIDE RECORDS SUMMARY | 2024-10-24 11:50 | XMS_ITS | Encounter Summary ---
Author Organization [facility] Address [facility]. [place], [place] [address] [place] [address] Care Team Providers Care Internal Communications Manager Name Role Phone Joon Lewis Unavailable [phone] Callie Guerrero DO Unavailable [phone] George Osorio MD Unavailable Sergey Ramey Unavailable [phone] Jony Pruitt DPM Unavailable [phone] Gama Graves MD Unavailable [phone] Ella Hodge CLINICAL SUPPORT TECH Primary Care Provider [phone] Encounter Details Date Type Department Care Team (Latest Contact Info) Description 11/06/2023 Travel Social History Tobacco Use Types Packs/Day [...] st Contact Info) Description 11/02/2024 8:00 AM AEROPHYSICIST Office Visit [address] [place] [address] Ella Hodge FNP 201 [facility] [place] [address] 01/19/2025 11:00 AM CDT Office Visit [facility] Medical Group Pulmonology Specialty Clinic - [address] [place] [address] Stanley Jim MD [address] [place] [address] 06/23/2025 8:20 AM CDT Office Visit [address] [place] [address] Ella Hodge FNP [address] [place] [address] [place] [address] documented as of this encounter Visit Diagnoses Not on filedocumented in this encounter Additional Health Concerns Assessment Noted Time PHQ-9 Depression Total Score: 0 05/09/20 23 10:49 AM CDT documented as of this encounter Care Teams Internal Communications Manager Relationship Specialty Start Date End Date Ella Hodge FNP [address] [place] [address] [place] [address] PCP - General NURSE PRACTITIONER 05/09/23 Joon Lewis PA PHYSICIAN CISO 05/09/21 aCllie Guerrero DO Senior Portfolio Analyst OBGYN 06/14/21 [place] [address] [address] [place] [address] GASTROENTEROLOGY 06/14/21 Sergey Ramey PA [address] [place] [address] PHYSICIAN CISO 06/14/21 Jony Pruitt DPM [address] [place] [address], [address] [place] [address] Referring Physician PODIATRY/SURGERY 06/14/21 [place] [address] [place] [address] ORTHOPAEDIC SURGERY 06/14/21 documented as of this encounter
--- OUTSIDE RECORDS SUMMARY | 2024-10-24 11:50 | XMS_ITS | Encounter Summary ---
Author Organization [facility] Address [facility]6 [facility]. [place], [place] [address] [place] [address] Care Team Providers Care Band Salvager Name Role Phone Joon Lewis Unavailable [phone] Callie Guerrero DO Unavailable [phone] George Osorio MD Unavailable Sergey Ramey Unavailable Jony Pruitt DPM Unavailable [phone] Gama Graves MD Unavailable [phone] lEla Hodge TEAM MEMBER Primary Care Provider [phone] Encounter Details Date Type Department Care Team (Latest Contact Info) Description 10/30/2023 Travel Social History Tobacco Use Types Packs/Day [...] st Contact Info) Description 11/02/2024 8:00 AM STONE DERRICKMAN AND RIGGER Office Visit [address] [place] [address] Ella Hodge FNP 201 [facility] [place] [address] 01/19/2025 11:00 AM CDT Office Visit [facility] Medical Group Pulmonology Specialty Clinic - [address] [place] [address] Stanley Jim MD [address] [place] [address] 06/23/2025 8:20 AM CDT Office Visit [address] [place] [address] Ella Hodge FNP [address] [place] [address] [place] [address] documented as of this encounter Visit Diagnoses Not on filedocumented in this encounter Additional Health Concerns Assessment Noted Time PHQ-9 Depression Total Score: 0 05/09/20 23 10:49 AM CDT documented as of this encounter Care Teams Band Salvager Relationship Specialty Start Date End Date Ella Hodge FNP [address] [place] [address] [place] [address] PCP - General NURSE PRACTITIONER 05/09/23 Joon Lewis PA PHYSICIAN WOOD MODEL MAKER 05/09/21 Callie Guerrero DO Power Press Supervisor OBGYN 06/14/21 [place] [address] [address] [place] [address] GASTROENTEROLOGY 06/14/21 Sergey Ramey PA [address] [place] [address] PHYSICIAN WOOD MODEL MAKER 06/14/21 Jony Pruitt DPM [address] [place] [address], [address] [place] [address] Referring Physician PODIATRY/SURGERY 06/14/21 [place] [address] [place] [address] ORTHOPAEDIC SURGERY 06/14/21 documented as of this encounter
--- OUTSIDE RECORDS SUMMARY | 2024-10-24 11:50 | XMS_ITS | Encounter Summary ---
Author Organization [facility] Address [facility]6 [facility]. [place], [place] [address] [place] [address] Care Team Providers Care Data Analytics Specialist Name Role Phone Joon Lewis Unavailable [phone] Callie Guerrero DO Unavailable [phone] George Osorio MD Unavailable Sergey Ramey Unavailable Jony Pruitt DPM Unavailable Gama Graves MD Unavailable [phone] Ella Hodge [facility] Primary Care Provider [phone] Reason for Visit * Reason Onset Date Comments Question 11/18/2023 Encounter Details Date Type Department Care Team (Late st Contact Info) Description 11/18/2023 Telephone [place] [address] [place] [address] Ella Hodge [facility] [address] [place] [address] Question Social History Tobacco Use Types Packs/Day Years [...] as of this encounter Progress Notes * Yesi Burnett LPN - 11/18/2023 1:41 PM CST Patient told. NICIAN HELPER INSTRUMENT * THEODORA Kendall - 11/18/2023 1:07 PM CST I sent Paxlovid to the pharmacy. NICIAN HELPER INSTRUMENT * Julia العراقي LPN - 11/18/2023 12:59 PM CST Spoke with pt and she stated she thought first day was this last Friday with light headache and then Friday and Friday runny nose and a slight cough, but pt stated probable Friday or Friday may have had first symptom,because she kept waking up in middle of this nights sweating real bad. NICIAN HELPER INSTRUMENT * Kristina Woods - 11/18/2023 10:46 AM CST Patient's was seen in this offfice on Friday, positive for COVID, patient is now positive for COVID this AM can we just call medication in for her, or does she need to be seen to get medication? [place], [place] NICIAN HELPER INSTRUMENT documented in this encounter Plan of Treatment Upcoming Encounters Date Type Department Care Team (Late st Contact Info) Description 11/02/2024 8:00 AM TECHNICIAN HELPER INSTRUMENT Office Visit [address] [place] [address] Ella Hodge FNP [address] [place] [address] 01/19/2025 11:00 AM CDT Office Visit [facility] Medical Group Pulmonology Specialty Clinic - [place] [address] [facility] [place] [address] Stanley Jim MD [address] [place] [address] 06/23/2025 8:20 AM CDT Office Visit [address] [place] [address] Ella Hodge [facility] [address] [place] [address] documented as of this encounter Visit Diagnoses Diagnosis COVID- Primary documented in this encounter Additional Health Concerns Assessment Noted Time PHQ-9 Depression Total Score: 0 05/09/20 10:49 AM CDT documented as of this encounter Care Teams Data Analytics Specialist Relationship Specialty Start Date End Date Ella Hodge FNP [address] [place] [address] PCP - General NURSE PRACTITIONER 05/09/23 Joon Lewis PA PHYSICIAN BUSINESS DEVELOPMENT ASSISTANT 05/09/21 Callie Guerrero DO Hosiery Looper OBGYN 06/14/21 [place] [address] [phone] GASTROENTEROLOGY 06/14/21 Sergey Ramey PA [address] [place] [address] [place] [address] PHYSICIAN BUSINESS DEVELOPMENT ASSISTANT 06/14/21 Jony Pruitt DPM [address] [place] [address], [address] [place] [address] Referring Physician PODIATRY/SURGERY 06/14/21 [place] [address] [place] [address] ORTHOPAEDIC SURGERY 06/14/21 documented as of this encounter
--- OUTSIDE RECORDS SUMMARY | 2024-10-24 11:50 | XMS_ITS | Encounter Summary ---
Author Organization [facility] Address [facility]. [place], [place] [address] [place] [address] Care Team Providers Care Dip Painter Name Role Phone Joon Lewis Unavailable [phone] Callie Guerrero DO Unavailable [phone] George Osorio MD Unavailable Sergey Ramey Unavailable [phone] Jony Pruitt DPM Unavailable [phone] Gama Graves MD Unavailable [phone] Ella Hodge RUG UNDERLAY MACHINE OPERATOR Primary Care Provider [phone] Encounter Details Date Type Department Care Team (Latest Contact Info) Description 10/15/2023 Scan HEALTH INFO SRVCS Scanned, Doc Med [...] st Contact Info) Description 11/02/2024 8:00 AM CLAY PRESS OPERATOR Office Visit [address] [place] [address] Ella Hodge FNP 201 [facility] [place] [address] 01/19/2025 11:00 AM CDT Office Visit [facility] Medical Group Pulmonology Specialty Clinic - [address] [place] [address] Stanley Jim MD [address] [place] [address] 06/23/2025 8:20 AM CDT Office Visit [address] [place] [address] Ella Hodge FNP [address] [place] [address] [place] [address] documented as of this encounter Visit Diagnoses Not on filedocumented in this encounter Additional Health Concerns Assessment Noted Time PHQ-9 Depression Total Score: 0 05/09/20 10:49 AM CDT documented as of this encounter Care Teams Dip Painter Relationship Specialty Start Date End Date Ella Hodge FNP [address] [place] [address] [place] [address] PCP - General NURSE PRACTITIONER 05/09/23 Joon Lewis PA PHYSICIAN AUTOMOBILE DETAILER 05/09/21 Callie Guerrero DO Hazardous Material Specialist OBGYN 06/14/21 [place] [address] [facility] [address] [place] [address] GASTROENTEROLOGY 06/14/21 Sergey Ramey PA [address] [place] [address] PHYSICIAN AUTOMOBILE DETAILER 06/14/21 Jony Pruitt DPM [address] [place] [address], [address] [place] [address] Referring Physician PODIATRY/SURGERY 06/14/21 [place] [address] [place] [address] ORTHOPAEDIC SURGERY 06/14/21 documented as of this encounter
--- OUTSIDE RECORDS SUMMARY | 2024-10-24 11:51 | XMS_ITS | Encounter Summary ---
Author Organization [facility] Address [facility]6 [facility]. [place], [place] [address] [place] [address] Care Team Providers Care Exhauster Name Role Phone Joon Lewis Unavailable [phone] Callie Guerrero DO Unavailable [phone] George Osorio MD Unavailable Sergey Ramey Unavailable Jony Pruitt DPM Unavailable Gama Graves MD Unavailable [phone] Ella Hodge [facility] Primary Care Provider [phone] Reason for Visit * Reason Comments Knee Pain * Physical Therapy (Routine) - Closed Specialty Diagnoses / Procedures Referred By Contac t Referred To Contact PHYSICAL THERAPY / [facility] Physical Therapy Diagnoses Pain in left knee Procedures Fabio Oshea MD [address] [facility] [address] [place] [address] Phone: tel: fax: Kathleen Hamilton, PT [address] [place] [address] Phone: tel: fax: Referral ID Status Reason Start Date Expiration Date V isits Requested Visits Authorized [id number] Closed Physical Therapy 10/13/2023 99 99 Encounter Details Date Type Department Care Team (Late st Contact Info) Description 10/13/2023 6:55 AM CHIEF OF FIELD OPERATIONS - 10/13/2023 11:59 PM CHIEF OF FIELD OPERATIONS Hospital Encounter [facility] Therapy [address] [place] [address] Fabio Aguilar MD [address] [place] [address] Kathleen Hamilton, PT [address] [place] [address] Knee Pain Discharge Disposition: Home or Self [...] as of this encounter Progress Notes * DICK Ventura - 10/13/2023 7:00 AM CSTEncounter addended by: DICK Ventura on: 12/15/2023 11:21 AM Actions taken: Letter saved, Clinical Note Signed F OF FIELD OPERATIONS * DICK Ventura - 10/13/2023 7:00 AM CST Initial Lower Extremity Evaluation Visit Diagnosis: Pain in left knee Referring Physician: Fabio Aguilar MD Certification Period: 10/13/23-12/14/23 Current Therapy Orders:Eval and Treat Next MD Visit: 6 weeks Precautions: none Restrictions: none Date of Injury/Onset: late summer SUBJECTIVE History of Present Condition: Patient is known to PT after previous bout of PT in early fall 2022. She reports that her L knee is doing much better overall but is not yet where she wants it to be. She is no longer utilizing knee brace but feels that the back of the knee is tight. She reports occasional pain into medial and lateral component that can be sharp. She did have xray performed but denies MRI. She reports that she is to try one more round of PT and if no better then will have injectionor MRI. Mechanism of Injury: unknown- gradual worsening Past Treatment for Current Diagnosis: PT previously Functional Deficits: bending down, walking Prior Level of Function: I with all activities without pain. PAIN Current Pain Level: 0/10 Lowest Pain Level: 0/10 Highest Pain Level: 8/10 Activities that Increase Pain: standing prolonged time, stairs Activities that Decrease Pain: rest, sit Location and Description of Pain: back of the knee- tight REVIEW WITH PATIENT Medication Reviewed: Yes Diagnostics: xray Co-Morbidities: R hip surgery 2019 Patient Stated goals for Therapy Patient would like to decrease pain. OBJECTIVE OBSERVATION: Patient arrives to physical therapy initial evaluation in no apparent distress. Gait: Patient ambulates with overall guarding placed through L LE with early heel off. Posture: Lack of full knee extension with knee held in slight flexion. PALPATION: Pain: Tenderness noted into B knee joint line and into lateral quad musculature. KNEE: ACTIVE ROM Knee AROM R Eval Date: L Eval: Knee extension 0 0 Knee flexion 138 133 Strength: ANKLE STRENGTH R Eval L Eval Dorsiflexion 5/5 5/5 Plantarflexion 5/5 5/5 HIP STRENGTH R Eval L Eval Hip flexion 4+/5 4+/5 discomfort Hip abduction 4+/5 4+/5 Hip adduction 5/5 5/5 KNEE STRENGTH R Eval L Eval Knee flexion 5/5 5/5 Knee extension 5/5 4/5 discomfort Functional Scales: LEFS: 59/80 Special Tests: Moderate hamstring tightness on the L Moderate gastroc tightness on the L Reji's: (-) bilaterally ASSESSMENT Love Catherine presents with signs and symptoms consistent with L knee pain. Subjectively, patient reports that her L knee continue to be doing better overall but is not yet where she wants it to be. She reports continued tightness into L knee. Objectively, patient exhibits slight limitations in L knee ROM; L LE strength deficits into hip and knee; LE flexibility deficits into hamstring, ITB, and gastroc; gait and postural deviations; and overall functional/recreational activity tolerance deficits. Patient would benefit from continuing physical therapy at 2x/week for 6 weeks to address these deficits. Problem list to be addressed: -Pain into L knee -Decreased L LE strength. -Decreased L knee range of motion. -Poor posture and body mechanics. -Decreased Physical Performance and activity tolerance. -Limited functional activities of standing and walking. Prognosis: Patient is a good candidate for physical therapy. Good prognosis to achieve goals. PLAN Planned frequency and duration of treatment is 2/week x 6 weeks to achieve the above stated goals which were discussed with the patient. Treatment will include the following: Self -Care/Home Management - 31622, Gait Training - 73160, Therapeutic Exercise - 81451, ElectricalStimulation Unattended - 56521, Vasopneumatic Device - 01804, Manual Therapy - 87659, and Hot/Cold Pack - 14852 GOALS 1. Patient to achieve Knee AROM on the L to equal the R. Timeframe:2 weeks 2. Patient to achieve Knee/Hip/Ankle Strength: 5/5 MMT or equivalent to uninvolved side Timeframe: 2 weeks 3. Patient to demonstrate normal active mobility without guarded movement patterns Timeframe: prior to DC 4. Patient to demonstrate normal gait pattern and report no limitation with walking during ADLs Timeframe: prior to DC 5. Patient to correctly demonstrate home exercises to be performed in conjunction with therapy program Timeframe: 2 weeks 6. Patient to decrease pain complaints with ADLs to <4/10 Timeframe: 2 weeks 7. Return to previous functional status for ADLs, recreational activities, or sports activities as identified by patient Timeframe: prior to DC 8. Patient to report self perceived improvements evidenced by functional outcome score of LEFS of > 60/80. Timeframe: prior to DC Therapist: Kathleen Hamilton, PT Date: 10/13/23 Time: 6:57 AM Physician certification: I certify that the above physical therapy services are required, authorized, and reviewed. Provider Signature: Date: Time: Fabio Aguilar MD Patient Name: Love Catherine : 1945 F OF FIELD OPERATIONS F OF FIELD OPERATIONS * Kathleen Hamilton, PT - 10/13/2023 7:00 AM CST Physical Therapy Visit Note: Patient Name: Love Catherine Diagnosis: Pain in left knee (primary encounter diagnosis) SUBJECTIVE Therapy Visit Treatment Day: 1 Total Approved Visits: 11/07 Therapy Plan of Care: ther ex, manual, neuro, gait, estim, ice/heat Current Therapy Orders: eval and treat Diagnosis: L knee pain Referring Provider: Dr. Lauren Ramos MD Visit: 6 weeks Precautions: none Restrictions: none Subjective Note: Patient reports L knee pain since the summer. See eval. Pain Current Location of Pain: L knee Current Pain Level: 0/10 OBJECTIVE Treatment provided today: Self -Care/Home Management - 70961 Other (Comments): HEP instruction Therapeutic Exercise - 42353 Exercise: slr x 15 Exercise: clamshells x 15 Exercise: laq x 15 Exercise: seated hs stretch x 5 Exercise: standing calf stretch at stair x 5 Manual Therapy - 75093 Intervention: HS stretch Intervention: ITB stretch Intervention: gastroc stretch Intervention: patellar mobs Modalities Non-Timed Electrical Stimulation Unattended - Minutes- 71418: 15 Electrical Stimulation Unattended - 91993/G0283: L knee post Hot/Cold Pack Minutes - 78702: 15 Hot Pack - 73841: L knee post Total Non- Timed Modality Minutes: 30 Home Exercise Program Current Home Exercise Program: issued 10/13/23 Education Was Education Provided: Yes Topic: hep Recipient: Patient Method: Written Response: Verbalized understanding Barriers: None ASSESSMENT Note: Patient exhibits L knee strength and postural deviations. See eval. PLAN Changes: Continue PTat 2x/week for 6 weeks. F OF FIELD OPERATIONS documented in this encounter Plan of Treatment Upcoming Encounters Date Type Department Care Team (Late st Contact Info) Description 11/02/2024 8:00 AM CHIEF OF FIELD OPERATIONS Office Visit [address] [place] [address] Ella Hodge [address] [place] [address] 01/19/2025 11:00 AM CDT Office Visit [facility] Medical [facility] - [place] [address] [place] [address] Stanley Jim MD [address] [place] [address] 06/23/2025 8:20 AM CDT Office Visit [facility] [address] [place] [address] Ella Hodge FNP [address] [place] [address] documented as of this encounter Visit Diagnoses Diagnosis Pain in left knee- Primary Pain in joint, lower leg documented in this encounter Additional Health Concerns Assessment Noted Time PHQ-9 Depression Total Score: 0 05/09/20 10:49 AM CDT documented as of this encounter Care Teams Exhauster Relationship Specialty Start Date End Date Ella Hodge FNP 201 [facility] [place] [address] PCP - General NURSE PRACTITIONER 05/09/23 Joon Lewis PA PHYSICIAN ENGINE INSPECTOR 05/09/21 Callie Guerrero DO Visual Aid Expert OBGYN 06/14/21 [place] [address] [phone] GASTROENTEROLOGY 06/14/21 Sergey Ramey PA [address] [place] [address] PHYSICIAN ENGINE INSPECTOR 06/14/21 Jony Pruitt DPM [address] [facility], [address] [place] [address] Referring Physician PODIATRY/SURGERY 06/14/21 [place] [address] [place] [address] ORTHOPAEDIC SURGERY 06/14/21 documented as of this encounter
--- OUTSIDE RECORDS SUMMARY | 2024-10-24 11:51 | XMS_ITS | Encounter Summary ---
Author Organization [facility] Address [facility]. [place], [place] [address] [place] [address] Care Team Providers Care Artillery Maintenance Supervisor Name Role Phone Joon Lewis Unavailable [phone] Callie Guerrero DO Unavailable [phone] George Osorio MD Unavailable Sergey Ramey Unavailable [phone] Jony Pruitt DPM Unavailable [phone] Gama Graves MD Unavailable [phone] Ella Hodge STATE TROOPER Primary Care Provider [phone] Encounter Details Date Type Department Care Team (Latest Contact Info) Description 09/02/2023 Travel Social History Tobacco Use Types Packs/Day [...] st Contact Info) Description 11/02/2024 8:00 AM REED POLISHER Office Visit [address] [place] [address] Ella Hodge FNP 201 [facility] [place] [address] 01/19/2025 11:00 AM CDT Office Visit [facility] Medical Group Pulmonology Specialty Clinic - [address] [place] [address] Stanley Jim MD [address] [place] [address] 06/23/2025 8:20 AM CDT Office Visit [address] [place] [address] Ella Hodge FNP [address] [place] [address] [place] [address] documented as of this encounter Visit Diagnoses Not on filedocumented in this encounter Additional Health Concerns Assessment Noted Time PHQ-9 Depression Total Score: 0 05/09/20 23 10:49 AM CDT documented as of this encounter Care Teams Artillery Maintenance Supervisor Relationship Specialty Start Date End Date Ella oHdge FNP [address] [place] [address] [place] [address] PCP - General NURSE PRACTITIONER 05/09/23 Joon Lewis PA PHYSICIAN PACKER INSULATION 05/09/21 Callie Guerrero DO Press Set Up Person OBGYN 06/14/21 [place] [address] [address] [place] [address] GASTROENTEROLOGY 06/14/21 Sergey Ramey PA [address] [place] [address] PHYSICIAN PACKER INSULATION 06/14/21 Jony Pruitt DPM [address] [place] [address], [address] [place] [address] Referring Physician PODIATRY/SURGERY 06/14/21 [place] [address] [place] [address] ORTHOPAEDIC SURGERY 06/14/21 documented as of this encounter
--- OUTSIDE RECORDS SUMMARY | 2024-10-24 11:51 | XMS_ITS | Encounter Summary ---
Author Organization [facility] Address [facility] [facility]. [place], [place] [address] [place] [address] Care Team Providers Care Brick Extruder Operator Name Role Phone Joon Lewis Unavailable [phone] Callie Guerrero DO Unavailable [phone] George Osorio MD Unavailable Sergey Ramey Unavailable Jony Pruitt DPM Unavailable Gama Graves MD Unavailable [phone] Ella Hodge [facility] Primary Care Provider [phone] Reason for Visit * Reason Comments Knee Pain * Physical Therapy (Routine) - Closed Specialty Diagnoses / Procedures Referred By Contac t Referred To Contact PHYSICAL THERAPY / [facility] Physical Therapy Diagnoses Pain in left knee Procedures Fabio Oshea MD [address] [facility] [address] [place] [address] Phone: tel: fax: Kathleen Hamilton, PT [address] [place] [address] Phone: tel: fax: Referral ID Status Reason Start Date Expiration Date V isits Requested Visits Authorized [id number] Closed Physical Therapy 10/13/2023 99 99 Encounter Details Date Type Department Care Team (Late st Contact Info) Description 10/15/2023 7:57 AM ROLLER HELPER - 10/15/2023 11:59 PM ROLLER HELPER Hospital Encounter [facility] Therapy [address] [place] [address] Fabio Aguilar MD [address] [place] [address] Callie Flood PTA Knee Pain Discharge Disposition: Home or Self [...] as of this encounter Progress Notes * Callie Flood, SOLE LEATHER CUTTING MACHINE OPERATOR - 10/15/2023 8:00 AM CST Physical Therapy Visit Note: Patient Name: Love Catherine Diagnosis: Pain in left knee (primary encounter diagnosis) SUBJECTIVE Therapy Visit Treatment Day: 2 Total Approved Visits: 12/08 Therapy Plan of Care: ther ex, manual, neuro, gait, estim, ice/heat Current Therapy Orders: eval and treat Diagnosis: L knee pain Referring Provider: Dr. Aguilar Next MD Visit: 6 weeks Precautions: none Restrictions: none Subjective Note: Pt reports feeling ok today. States that overall she feels that her knee is doing ok, but shehas had some soreness and tenderness through the wright. Response to prior treatment: Good Compliance to Home Program: Good Functional changes since last visit: None Reported Falls since last visit: None Medications changes since last visit : None Pain Current Location of Pain: L knee Other (comments): sore OBJECTIVE Treatment provided today: Therapeutic Exercise - 03657 Cardio Equipment: NuStep Exercise: 1/ roll stretch Exercise: standing: HR/TR, marching, hip abd/ext, minisquats Exercise: seated HS stretch Exercise: LAQ, HS curls Exercise: SLR Exercise: HL hip abd/add; joi Manual Therapy - 93510 Intervention: HS stretch Intervention: ITB stretch Intervention: gastroc stretch Intervention: patellar mobs Modalities Non-Timed Electrical Stimulation Unattended - 74893/G0283: L knee post Hot Pack - 47037: L knee post Education Was Education Provided: Yes Topic: HEP review Recipient: Patient Method: Verbal Response: Verbalized understanding, Demonstrates adequately Barriers: None ASSESSMENT Assessment Note: Love tolerates session well without adverse effects and without c/o increased pain. She demonstrates good effort and recall with all exers with minimal cuing for proper form/technique. She tolerates addition of standing exers well with minimal c/o discomfort. Moderate L HS and quad flexibility deficits remain present at this time; moderate adhesions are noted throughout the L ITB with increased tenderness noted with STM throughout the area. CP with IFC applied to L knee post treatment for comfort without adverse effects noted. Response to Treatment : Good Goal Progression: Steady Continue on Functional Deficit of: L knee mobility and strength PLAN Plan Next Visit Plan: Cont per current PT poc; progressing per pt tolerance ER HELPER documented in this encounter Plan of Treatment Upcoming Encounters Date Type Department Care Team (Late st Contact Info) Description 11/02/2024 8:00 AM ROLLER HELPER Office Visit [address] [place] [address] Ella Hodge, RN DOCUMENT IMPROVEMENT [address] [facility] [place] [address] 01/19/2025 11:00 AM CDT Office Visit [facility] Medical Group Pulmonology Specialty Clinic - [address] [place] [address] Stanley iJm MD [address] [place] [address] 06/23/2025 8:20 AM CDT Office Visit [address] [place] [address] Ella Hodge FNP [address] [place] [address] documented as of this encounter Visit Diagnoses Diagnosis Pain in left knee- Primary Pain in joint, lower leg documented in this encounter Additional Health Concerns Assessment Noted Time PHQ-9 Depression Total Score: 0 05/09/20 10:49 AM CDT documented as of this encounter Care Teams Brick Extruder Operator Relationship Specialty Start Date End Date Ella Hodge FNP [address] [place] [address] PCP - General NURSE PRACTITIONER 05/09/23 Joon Lewis PA PHYSICIAN REPAIR ARMATURE WINDER HELPER 05/09/21 Callie Guerrero DO Electron Beam Photo Mask Technician OBGYN 06/14/21 [place] [address] [phone] GASTROENTEROLOGY 06/14/21 Sergey Ramey PA [address] [place] [address] [place] [address] PHYSICIAN REPAIR ARMATURE WINDER HELPER 06/14/21 Jony Pruitt DPM [facility], [address] [place] [address] Referring Physician PODIATRY/SURGERY 06/14/21 [place] [address] [place] [address] ORTHOPAEDIC SURGERY 06/14/21 documented as of this encounter
--- OUTSIDE RECORDS SUMMARY | 2024-10-24 11:51 | XMS_ITS | Encounter Summary ---
Author Organization [facility] Address [facility]6 [facility]. [place], [place] [address] [place] [address] Care Team Providers Care Housing Assistant Property Manager Name Role Phone Joon Lewis Unavailable [phone] Callie Guerrero DO Unavailable [phone] George Osorio MD Unavailable Sergey Ramey Unavailable [phone] Jony Pruitt DPM Unavailable [phone] Gama Graves MD Unavailable [phone] Ella Hodge CUSTOM FRAME ASSEMBLER Primary Care Provider [phone] Encounter Details Date Type Department Care Team (Latest Contact Info) Description 10/13/2023 Travel Social History Tobacco Use Types Packs/Day [...] st Contact Info) Description 11/02/2024 8:00 AM PROCESS STRIPPER Office Visit [address] [place] [address] Ella Hodge FNP 201 [facility] [place] [address] 01/19/2025 11:00 AM CDT Office Visit [facility] Medical Group Pulmonology Specialty Clinic - [address] [place] [address] Stanley Jim MD [address] [place] [address] 06/23/2025 8:20 AM CDT Office Visit [address] [place] [address] Ella Hodge FNP [address] [place] [address] [place] [address] documented as of this encounter Visit Diagnoses Not on filedocumented in this encounter Additional Health Concerns Assessment Noted Time PHQ-9 Depression Total Score: 0 05/09/20 23 10:49 AM CDT documented as of this encounter Care Teams Housing Assistant Property Manager Relationship Specialty Start Date End Date Ella Hodge FNP [address] [place] [address] [place] [address] PCP - General NURSE PRACTITIONER 05/09/23 Joon Lewis PA PHYSICIAN NIGHT AUDITOR 05/09/21 Callie Guerrero DO Historical Interpreter OBGYN 06/14/21 [place] [address] [address] [place] [address] GASTROENTEROLOGY 06/14/21 Sergey Ramey PA [address] [place] [address] PHYSICIAN NIGHT AUDITOR 06/14/21 Jony Pruitt DPM [address] [place] [address], [address] [place] [address] Referring Physician PODIATRY/SURGERY 06/14/21 [place] [address] [place] [address] ORTHOPAEDIC SURGERY 06/14/21 documented as of this encounter
--- OUTSIDE RECORDS SUMMARY | 2024-10-24 11:51 | XMS_ITS | Encounter Summary ---
Author Organization [facility] Address [facility]6 [facility]. [place], [place] [address] [place] [address] Care Team Providers Care Asp Web Developer Name Role Phone Joon Lewis Unavailable [phone] Callie Guerrero DO Unavailable [phone] George Osorio MD Unavailable Sergey Ramey Unavailable [phone] Jony Pruitt DPM Unavailable [phone] Gama Graves MD Unavailable [phone] Ella Hodge ELECTRONIC WARFARE SPECIALIST Primary Care Provider [phone] Encounter Details Date Type Department Care Team (Latest Contact Info) Description 08/28/2023 Travel Social History Tobacco Use Types Packs/Day [...] st Contact Info) Description 11/02/2024 8:00 AM SCRIPT MANAGER Office Visit [address] [place] [address] Ella Hodge FNP 201 [facility] [place] [address] 01/19/2025 11:00 AM CDT Office Visit [facility] Medical Group Pulmonology Specialty Clinic - [address] [place] [address] Stanley Jim MD [address] [place] [address] 06/23/2025 8:20 AM CDT Office Visit [address] [place] [address] Ella Hodge FNP [address] [place] [address] [place] [address] documented as of this encounter Visit Diagnoses Not on filedocumented in this encounter Additional Health Concerns Assessment Noted Time PHQ-9 Depression Total Score: 0 05/09/20 23 10:49 AM CDT documented as of this encounter Care Teams Asp Web Developer Relationship Specialty Start Date End Date Ella Hodge FNP [address] [place] [address] [place] [address] PCP - General NURSE PRACTITIONER 05/09/23 Joon Lewis PA PHYSICIAN MANAGER DISTRIBUTION 05/09/21 Callie Guerrero DO Granulating Machine Operator OBGYN 06/14/21 [place] [address] [address] [place] [address] GASTROENTEROLOGY 06/14/21 Sergey Ramey PA [address] [place] [address] PHYSICIAN MANAGER DISTRIBUTION 06/14/21 Jony rPuitt DPM [address] [place] [address], [address] [place] [address] Referring Physician PODIATRY/SURGERY 06/14/21 [place] [address] [place] [address] ORTHOPAEDIC SURGERY 06/14/21 documented as of this encounter
--- OUTSIDE RECORDS SUMMARY | 2024-10-24 11:51 | XMS_ITS | Encounter Summary ---
Author Organization [facility] Address [facility]. [place], [place] [address] [place] [address] Care Team Providers Care Field Crop Farmworker Name Role Phone Joon Lewis Unavailable [phone] Callie Guerrero DO Unavailable [phone] George Osorio MD Unavailable Sergey Ramey Unavailable [phone] Jony Pruitt DPM Unavailable [phone] Gama Graves MD Unavailable [phone] Ella Hodge MENTALLY IMPAIRED TEACHER Primary Care Provider [phone] Encounter Details Date Type Department Care Team (Latest Contact Info) Description 10/15/2023 Travel Social History Tobacco Use Types Packs/Day [...] st Contact Info) Description 11/02/2024 8:00 AM BIOMASS POWER PLANT MANAGER Office Visit [address] [place] [address] Ella Hodge FNP [address] [facility] [place] [address] 01/19/2025 11:00 AM CDT Office Visit [facility] Pul[facility] Specialty Clinic - [address] [place] [address] Stanley Jim MD [address] [place] [address] 06/23/2025 8:20 AM CDT Office Visit [address] [place] [address] Ella Hodge FNP [address] [place] [address] [place] [address] documented as of this encounter Visit Diagnoses Not on filedocumented in this encounter Additional Health Concerns Assessment Noted Time PHQ-9 Depression Total Score: 0 05/09/20 23 10:49 AM CDT documented as of this encounter Care Teams Field Crop Farmworker Relationship Specialty Start Date End Date Ella Hodge FNP [address] [place] [address] [place] [address] PCP - General NURSE PRACTITIONER 05/09/23 Joon Lewis PA PHYSICIAN CIPHER EXPERT 05/09/21 Callie Guerrero DO Straw Hat Machine Operator OBGYN 06/14/21 [place] [address] [address] [place] [address] GASTROENTEROLOGY 06/14/21 Sergey Ramey PA [address] [place] [address] PHYSICIAN CIPHER EXPERT 06/14/21 Jony Pruitt DPM [address] [place] [address], [address] [place] [address] Referring Physician PODIATRY/SURGERY 06/14/21 [place] [address] [place] [address] ORTHOPAEDIC SURGERY 06/14/21 documented as of this encounter
--- OUTSIDE RECORDS SUMMARY | 2024-10-24 11:51 | XMS_ITS | Encounter Summary ---
Author Organization [facility] Address [facility]6 [facility]. [place], [place] [address] [place] [address] Care Team Providers Care Weight Inspector Name Role Phone Joon Lewis Unavailable [phone] Callie Guerrero DO Unavailable [phone] George Osorio MD Unavailable Sergey Ramey Unavailable [phone] Jony Pruitt DPM Unavailable Gama Graves MD Unavailable [phone] Ella Hodge [facility] Primary Care Provider [phone] Reason for Visit * Reason Comments Knee Pain * Physical Therapy (Routine) - Closed Specialty Diagnoses / Procedures Referred By Contac t Referred To Contact PHYSICAL THERAPY / [facility] Physical Therapy Diagnoses Pain in left knee Procedures Fabio Oshea MD [address] [place] [address] Phone: tel: fax: Kathleen Hamilton, PT [address] [place] [address] Phone: tel: fax: Referral ID Status Reason Start Date Expiration Date V isits Requested Visits Authorized [id number] Closed Physical Therapy 08/05/2023 99 99 Encounter Details Date Type Department Care Team (Late st Contact Info) Description 09/02/2023 9:57 AM INTERIOR DESIGNER - 09/02/2023 11:59 PM INTERIOR DESIGNER Hospital Encounter [facility] Therapy [address] [place] [address] Fabio Aguilar MD [address] [place] [address] [place] [address] [place] [address] Knee Pain Discharge Disposition: Home or Self [...] of this encounter Progress Notes * Stephanie Benites, PT - 09/02/2023 10:00 AM CST Physical Therapy RE-Evaluation Visit Diagnosis: Pain in L knee Referring Physician: Fabio Aguilar MD Certification Period: 08/05/23 - 09/05/23 Current Therapy Orders: Eval and Treat Next MD Visit: 09/17/25 Date of Injury/Onset: about 3 weeks ago SUBJECTIVE History of Present Condition: 09/02/23: Love reports that her knee is about 80% better since starting therapy. She has decreased the amount of time she wears her knee brace. She reports popping when transferring sit to stand. She is able to walk around her home without knee pain. Stairs do increase her L knee pain. Her pain increases after standing 15 minutes. She has been taking Meloxicam, but only has 1 pill left. She is undecided if she wants to continue PT or continue her exercises at home. Initial Evaluation: Love says she has been having L knee pain for a few weeks and she has no idea what she did. She has a knee brace that she has been wearing most of the time. She says it feels better than when the pain first started, but it continues to bother her. She also notes she has been to physical therapy before for B hip bursitis, and it is affecting her on both sides. She says she knows her altered gait pattern is not helping with the bursitis. She has been taking Meloxicam for less than a week and says she can't tell a difference yet. She has not been icing her knee regularly. She says prolonged standing probably bothers her more than anything. Stairs bother her as well, but she doesn't have to go up and down them at home or at her daughter's house. Mechanism of Injury: pt is unsure Past Treatment for Current Diagnosis: none Functional Deficits: walking, squatting, kneeling Prior Level of Function: able to walk with less pain PAIN Current Pain Level: 1/10 Lowest Pain Level: 0/10 Highest Pain Level: 3/10 Activities that Increase Pain: prolonged standing, walking Activities that Decrease Pain: rest Location and Description of Pain: anterior knee REVIEW WITH PATIENT Medication Reviewed: Yes Diagnostics: x-ray Co-Morbidities: HBP Patient Stated goals for Therapy: No knee pain OBJECTIVE Gait: pt ambulates with decreased rell and step length B PALPATION: pt reports tenderness with palpation of posterior knee and distal adductor muscles Knee AROM R Eval Date: 08/05/23 L Eval: 08/05/23 Knee extension 0 deg 0 deg Knee flexion 134 deg 134 deg ANKLE STRENGTH L R Dorsiflexion 5/5 5/5 Plantarflexion 5/5 5/5 HIP STRENGTH L R Hip flexion 5/5 5/5 Hip abduction 5/5 5/5 Hip adduction 5/5 5/5 KNEE STRENGTH L R Knee flexion 5/5 5/5 Knee extension 5/5 5/5 Flexibility: 09/02/23: Mild B HS, adductor and ITB tightness. Initial Eval: Significant hamstring tightness bilaterally, worse on L than R; pt reports pain during L HS stretching Moderate hip adductor tightness bilaterally Moderate B ITB tightness LEFS: Initial Eval: 55/80 09/02/23: 59/80 Special Tests: Reji's (-) on L Valgus stress test (-) on L ASSESSMENT Love Catherine presents with signs and symptoms consistent with L knee pain. EVALUATION SUMMARY: Love reports her knee pain improving 80% since starting therapy. She has good knee ROM and MMT strength. She has improved her flexibility and improved functional knee strength.She has not been compliant with her HEP, but would like to DC PT today and perform her exercises athome. She was educated on being compliant to progress her knee strength and flexibility further. She will be discharging from PT today. PLAN Plan to DC PT and continue her exercises at home. GOALS Improved neuromuscular, balance, proprioceptive awareness for stability & reduction of risk forfuture injury Timeframe: By DC MET 2. Patient to achieve L Knee/Hip/Ankle Strength: 5/5 MMT Timeframe:By DC MET 3. Patient to demonstrate normal active mobility without guarded movement patterns Timeframe: By DC MET 4. Patient to demonstrate normal gait pattern and report no limitation with walking during ADLs Timeframe: By DC MET 5. Patient to correctly demonstrate home exercises to be performed in conjunction with therapy program Timeframe: 2 weeks Progressing 6. Patient to decrease pain complaints with ADLs to <3/10 Timeframe: By DC Progressing 7. Patient will report significant functional improvement with ADLs Timeframe: By DC MET 8. Return to previous functional status for ADLs, recreational activities, or sports activities as identified by patient Timeframe: By DC Progressing 9. Patient to report self perceived improvements evidenced by functional outcome score of LEFS >60/80 Timeframe: By DC Progressing Therapist: STEPHANIE BENITES, PT Date: 09/02/23 Time: 10:07 AM Physician certification: I certify that the above physical therapy services are required, authorized, and reviewed. Provider Signature: Date: Time: Fabio Aguilar MD Patient Name: Love Catherine : 1945 RIOR DESIGNER * Stephanie Benites, PT - 09/02/2023 10:00 AM CST Physical Therapy Visit Note: Patient Name: Love Catherine Diagnosis: Pain in left knee (primary encounter diagnosis) SUBJECTIVE Therapy Visit Total Approved Visits: 06/03 Therapy Plan of Care: therex, manual, ice, vaso, IFC, self-care Current Therapy Orders: Eval and Treat Diagnosis: L knee pain Referring Provider: Fabio Aguilra MD Next MD Visit: 09/17/23 Date of Injury: 3 weeks ago (June) Subjective Note: See re-evaluation completed today. Pain Current Location of Pain: L knee/distal adductors Other (comments): medial aspect of L knee. OBJECTIVE Treatment provided today: Therapeutic Exercise - 24725 Number of Minutes - 28564: 45 Cardio Equipment: nu-step x 10 minutes level 4 Exercise: seated HS stretch x 5 Exercise: SLR 2x 10 Exercise: side lying hip abd x 10 Exercise: Hooklying hip abduction x 20 red tband Exercise: LAQ x 20 Exercise: HS curls x 20 Exercise: standing hip ab/ext/march/HR/TR x 20 Manual Therapy - 20492 Number of Minutes - 65465: 10 Intervention: B hamstring stretching Intervention: B ITB stretching Intervention: B hip ADDuctor stretching Intervention: L distal adductor STM Modalities Timed Ultrasound Minutes - 34712: 8 Ultrasound - 36517: Continuous 100%, 8 minutes, 1.5 W/cm2, Frequency 3MHz Ultrasound Body Part and Patient Position: L medial knee along pes anserine Total Timed Modality Minutes: 8 Modalities Non-Timed Vasopneumatic Device Minutes - 78307: 15 Vasopneumatic Device - 72534: 15 minutes L knee post Electrical Stimulation Unattended Minutes- G0283: 15 Electrical Stimulation Unattended - 83244/G0283: 15 minutes L knee/distal adductors post Cold Pack - 50861: 15 minutes L knee post Total Non- Timed Modality Minutes: 30 Education Was Education Provided: Yes Topic: HEP Recipient: Patient Method: Demonstration, Verbal, Written, Return Demonstration Response: Demonstrates adequately, Verbalized understanding Barriers: None ASSESSMENT Assessment Note: See DC summary completed today. PLAN Plan Next Visit Plan: Progress as tolerated per PT POC Total Time Total Time in Minutes: 93 Timed Code Treatment Minutes : 63 RIOR DESIGNER documented in this encounter Plan of Treatment Upcoming Encounters Date Type Department Care Team ( Contact Info) Description 11/02/2024 8:00 AM INTERIOR DESIGNER Office Visit [facility] [address] [facility] [place] [address] Ella Hodge FNP 201 [place] [address] 01/19/2025 11:00 AM CDT Office Visit [facility] Pulmonology Specialty Clinic - [place] [address] [facility] [address] Stanley Jim MD [address] [place] [address] 06/23/2025 8:20 AM CDT Office Visit [facility] 201 [facility] [place] [address] Ella Hodge FNP [address] [facility] [place] [address] documented as of this encounter Visit Diagnoses Diagnosis Pain in left knee- Primary Pain in joint, lower leg documented in this encounter Additional Health Concerns Assessment Noted Time PHQ-9 Depression Total Score: 0 05/09/20 10:49 AM CDT documented as of this encounter Care Teams Weight Inspector Relationship Specialty Start Date End Date Ella Hodge FNP [address] [facility] [place] [address] PCP - General NURSE PRACTITIONER 05/09/23 Joon Lewis PA PHYSICIAN OFFSET LITHOGRAPHIC PRESS OPERATOR 05/09/21 Callie Guerrero DO Social Media Project Manager OBGYN 06/14/21 [place] [address] [place] [address] GASTROENTEROLOGY 06/14/21 Sergey Ramey PA [address] [place] [address] PHYSICIAN OFFSET LITHOGRAPHIC PRESS OPERATOR 06/14/21 Jony Prutit DPM [address] [place] [address], [address] [place] [address] Referring Physician PODIATRY/SURGERY 06/14/21 [place] [address] [place] [address] ORTHOPAEDIC SURGERY 06/14/21 documented as of this encounter
--- OUTSIDE RECORDS SUMMARY | 2024-10-24 11:51 | XMS_ITS | Encounter Summary ---
Author Organization [facility] Address [facility] [place], [place] [address] [place] [address] Care Team Providers Care Cardiovascular Surgical Tech Name Role Phone Joon Lewis Unavailable [phone] Callie Guerrero DO Unavailable [phone] George Osorio MD Unavailable Sergey Ramey Unavailable [phone] Jony Pruitt DPM Unavailable [phone] Gama Graves MD Unavailable [phone] Ella Hodge BRAKE TESTER Primary Care Provider [phone] Encounter Details Date Type Department Care Team (Latest Contact Info) Description 10/08/2023 Scan HEALTH INFO SRVCS Scanned, Doc Med [...] st Contact Info) Description 11/02/2024 8:00 AM ACID CUTTER Office Visit [address] [place] [address] Ella Hodge FNP 201 [facility] [place] [address] 01/19/2025 11:00 AM CDT Office Visit [facility] Pulmonology Specialty Clinic - [address] [place] [address] Stanlye Jim MD [address] [place] [address] 06/23/2025 8:20 AM CDT Office Visit [address] [place] [address] Ella Hodge FNP [address] [place] [address] [place] [address] documented as of this encounter Visit Diagnoses Not on filedocumented in this encounter Additional Health Concerns Assessment Noted Time PHQ-9 Depression Total Score: 0 05/09/20 10:49 AM CDT documented as of this encounter Care Teams Cardiovascular Surgical Tech Relationship Specialty Start Date End Date Ella Hodge FNP [address] [place] [address] [place] [address] PCP - General NURSE PRACTITIONER 05/09/23 Joon Lewis PA PHYSICIAN ADZING AND BORING MACHINE HELPER 05/09/21 Callie Guerrero DO Edge Inker Heels OBGYN 06/14/21 [place] [address] [facility] [address] [place] [address] GASTROENTEROLOGY 06/14/21 Sergey Ramey PA [address] [place] [address] PHYSICIAN ADZING AND BORING MACHINE HELPER 06/14/21 Jony Pruitt DPM [address] [place] [address], [address] [place] [address] Referring Physician PODIATRY/SURGERY 06/14/21 [place] [address] [place] [address] ORTHOPAEDIC SURGERY 06/14/21 documented as of this encounter
--- OUTSIDE RECORDS SUMMARY | 2024-10-24 11:52 | XMS_ITS | Encounter Summary ---
Author Organization [facility] Address [facility] [place] [place], [place] [address] [address] Care Team Providers Care Furnace Fitter Name Role Phone Joon Lewis Unavailable [phone] Callie Guerrero DO Unavailable [phone] George Osorio MD Unavailable Sergey Ramey Unavailable [phone] Jony Pruitt DPM Unavailable Gama Graves MD Unavailable [phone] Ella Hodge [facility] Primary Care Provider [phone] Reason for Visit * Reason Comments Knee Pain * Physical Therapy (Routine) - Closed Specialty Diagnoses / Procedures Referred By Contac t Referred To Contact PHYSICAL THERAPY / [facility] Physical Therapy Diagnoses Pain in left knee Procedures Fabio Oshea MD [address] [facility] [address] [place] [address] Phone: tel: fax: Kathleen Hamilton, PT [address] [place] [address] Phone: tel: fax: Referral ID Status Reason Start Date Expiration Date V isits Requested Visits Authorized [id number] Closed Physical Therapy 08/05/2023 99 99 Encounter Details Date Type Department Care Team (Late st Contact Info) Description 08/21/2023 9:52 AM CDT - 08/21/2023 11:59 PM CDT Hospital Encounter [facility] Therapy [address] [place] [address] Fabio Aguilar MD [address] [place] [address] Kathleen Hamilton, PT [address] [place] [address] Knee Pain Discharge Disposition: Home or Self [...] as of this encounter Progress Notes * Kathleen Hamilton, PT - 08/21/2023 10:00 AM CDT Physical Therapy Visit Note: Patient Name: Love Catherine Diagnosis: Pain in left knee (primary encounter diagnosis) SUBJECTIVE Therapy Visit Treatment Day: 5 Total Approved Visits: 03/03 Therapy Plan of Care: therex, manual, ice, vaso, IFC, self-care Current Therapy Orders: Eval and Treat Diagnosis: L knee pain Referring Provider: Faibo Aguilar MD Next MD Visit: 09/17/23 Date of Injury: 3 weeks ago (Late June) Subjective Note: Patient reports that she is doing okay today but is having some increased discomfort into herknee today. She is unsure why but thinks it may be due to the weather. She reports that her knee does always feel better when she is wearing her brace but knows that she should not wear this all the time. Pain Current Location of Pain: L knee/distal adductors Current Pain Level: 3-4/10 OBJECTIVE Treatment provided today: Self -Care/Home Management - 63897 Other (Comments): HEP Therapeutic Exercise - 93953 Cardio Equipment: nu-step x 10 minutes level 3 Exercise: seated HS stretch x 5 Exercise: SLR 2x 10 Exercise: side lying hip abd x 10 Exercise: Hooklying hip abduction x 20 red tband Exercise: LAQ x 20 Exercise: HS curls x 20 Exercise: standing hip ab/ext/march/HR/TR x 20 Manual Therapy - 03522 Intervention: B hamstring stretching Intervention: B ITB stretching Intervention: B hip ADDuctor stretching Intervention: L distal adductor STM Modalities Timed Ultrasound Minutes - 78033: 8 Ultrasound - 92576: Continuous 100%, 8 minutes, 1.5 W/cm2, Frequency 3MHz Ultrasound Body Part and Patient Position: L medial knee along pes anserine Total Timed Modality Minutes: 8 Modalities Non-Timed Vasopneumatic Device Minutes - 51344: 15 Vasopneumatic Device - 83758: 15 minutes L knee post Electrical Stimulation Unattended - Minutes- 49173: 15 Electrical Stimulation Unattended - 50948/G0283: 15 minutes L knee/distal adductors post Cold Pack - 20990: 15 minutes L knee post Total Non- Timed Modality Minutes: 30 Education Was Education Provided: Yes Topic: HEP Recipient: Patient Method: Demonstration, Verbal, Written, Return Demonstration Response: Demonstrates adequately, Verbalized understanding Barriers: None ASSESSMENT Note: Patient completes all exercises with minimal verbal cueing for proper technique. She denies pain with all exercises and reports improvement in discomfort throughout session. She does continue to exhibit B hamstring, adductor, and ITB tightness with tenderness into medial L knee. She denies pain post treatment. PLAN Next Visit Plan: Progress as tolerated per PT POC documented in this encounter Plan of Treatment Upcoming Encounters Date Type Department Care Team (Late st Contact Info) Description 11/02/2024 8:00 AM JIG BORE OPERATOR Office Visit [address] [place] [id number] Ella Hodge [address] [place] [address] 01/19/2025 11:00 AM CDT Office Visit [facility] Pulmonology Specialty Clinic - [place] [address] [place] [address] Stanley Jim MD [address] [address] 06/23/2025 8:20 AM CDT Office Visit [facility] [address] [place] [address] Ella Hodge FNP [address] [place] [address] documented as of this encounter Visit Diagnoses Diagnosis Pain in left knee- Primary Pain in joint, lower leg documented in this encounter Additional Health Concerns Assessment Noted Time PHQ-9 Depression Total Score: 0 05/09/20 10:49 AM CDT documented as of this encounter Care Teams Furnace Fitter Relationship Specialty Start Date End Date Ella Hodge FNP [address] [facility] [place] [address] PCP - General NURSE PRACTITIONER 05/09/23 Joon Lewis PA PHYSICIAN ANALYTICS LEAD 05/09/21 Callie Guerrero DO Health Coach OBGYN 06/14/21 [place] [address] [address] GASTROENTEROLOGY 06/14/21 Sergey Ramey PA [address] [facility] [place] [address] PHYSICIAN ANALYTICS LEAD 06/14/21 Jony Pruitt DPM [address] [place] [address], [address] [place] [address] Referring Physician PODIATRY/SURGERY 06/14/21 [place] [address] [place] [address] ORTHOPAEDIC SURGERY 06/14/21 documented as of this encounter
--- OUTSIDE RECORDS SUMMARY | 2024-10-24 11:52 | XMS_ITS | Encounter Summary ---
Author Organization [facility] Address [facility]6 [facility] [place], [place] [address] [place] [address] Care Team Providers Care Manager Resource Name Role Phone Joon Lewis Unavailable [phone] Callie Guerrero DO Unavailable [phone] George Osorio MD Unavailable Sergey Ramey Unavailable [phone] Jony Pruitt DPM Unavailable [phone] Gama Graves MD Unavailable [phone] Ella Hodge REGULATORY COMPLIANCE COORDINATOR Primary Care Provider [phone] Encounter Details Date Type Department Care Team (Latest Contact Info) Description 08/11/2023 Travel Social History Tobacco Use Types Packs/Day [...] st Contact Info) Description 11/02/2024 8:00 AM BOX LIDDER Office Visit [address] [place] [address] Ella Hodge FNP 201 [facility] [place] [address] 01/19/2025 11:00 AM CDT Office Visit [facility] Pulmonology Specialty Clinic - [address] [place] [address] Stanley Jim MD [address] [place] [address] 06/23/2025 8:20 AM CDT Office Visit [address] [place] [address] Ella Hodge FNP [address] [place] [address] [place] [address] documented as of this encounter Visit Diagnoses Not on filedocumented in this encounter Additional Health Concerns Assessment Noted Time PHQ-9 Depression Total Score: 0 05/09/20 23 10:49 AM CDT documented as of this encounter Care Teams Manager Resource Relationship Specialty Start Date End Date Ella Hodge FNP [address] [place] [address] [place] [address] PCP - General NURSE PRACTITIONER 05/09/23 Joon Lewis PA PHYSICIAN HOTEL ASSISTANT GENERAL MANAGER 05/09/21 Callie Guerrero DO Forest Products Gatherer OBGYN 06/14/21 [place] [address] [address] [place] [address] GASTROENTEROLOGY 06/14/21 Sergey Ramey PA [address] [place] [address] PHYSICIAN HOTEL ASSISTANT GENERAL MANAGER 06/14/21 Jony Pruitt DPM [address] [place] [address], [address] [place] [address] Referring Physician PODIATRY/SURGERY 06/14/21 [place] [address] [place] [address] ORTHOPAEDIC SURGERY 06/14/21 documented as of this encounter
--- OUTSIDE RECORDS SUMMARY | 2024-10-24 11:52 | XMS_ITS | Encounter Summary ---
Author Organization [facility] Address [facility]6 [facility]. [place], [place] [address] [place] [address] Care Team Providers Care Patent Examiner Name Role Phone Joon Lewis Unavailable [phone] Callie Guerrero DO Unavailable [phone] George Osorio MD Unavailable Sergey Ramey Unavailable Jony Pruitt DPM Unavailable Gama Graves MD Unavailable [phone] [facility] Primary Care Provider [phone] Reason for Visit * Reason Comments Knee Pain * Physical Therapy (Routine) - Closed Specialty Diagnoses / Procedures Referred By Contac t Referred To Contact PHYSICAL THERAPY / [facility] Physical Therapy Diagnoses Pain in left knee Procedures Fabio Oshea MD [address] [facility] [address] [place] [address] Phone: tel: fax: Kathleen [place], PT [address] [place] [address] Phone: tel: fax: Referral ID Status Reason Start Date Expiration Date V isits Requested Visits Authorized [id number] Closed Physical Therapy 08/05/2023 99 99 Encounter Details Date Type Department Care Team (Late st Contact Info) Description 08/13/2023 9:25 AM CDT - 08/13/2023 11:59 PM CDT Hospital Encounter [facility] Therapy [address] [place] [address] Fabio Aguilar MD [address] [place] [address] [place] [address] [place] [address] Knee Pain Discharge Disposition: Home or Self [...] Progress Notes * Stephanie Zamora, PT - 08/13/2023 9:30 AM CDT Physical Therapy Visit Note: Patient Name: Love Catherine Diagnosis: Pain in left knee (primary encounter diagnosis) SUBJECTIVE Therapy Visit Total Approved Visits: 02/01 Therapy Plan of Care: therex, manual, ice, vaso, IFC, self-care Current Therapy Orders: Eval and Treat Diagnosis: L knee pain Referring Provider: Fabio Aguilar MD Next MD Visit: 09/17/23 Date of Injury: 3 weeks ago (Late June) Subjective Note: Love reports that her L medial knee continues be sore along her pes anserine. She has beenstretching and compliant with her home exercises. Pain Current Location of Pain: L knee/distal adductors OBJECTIVE Treatment provided today: Self -Care/Home Management - 76639 Other (Comments): HEP Therapeutic Exercise - 10061 Number of Minutes - 72498: 45 Cardio Equipment: nu-step x 10 minutes level 3 Exercise: seated HS stretch Exercise: SLR 2x 10 Exercise: side lying hip abd x 10 Exercise: Hooklying hip abduction x 20 red tband Exercise: LAQ x 20 Exercise: HS curls x 20 Exercise: standing hip ab/ext/march/HR/TR Manual Therapy - 24844 Number of Minutes - 68861: 10 Intervention: B hamstring stretching Intervention: B ITB stretching Intervention: B hip ADDuctor stretching Intervention: L distal adductor STM Modalities Timed Ultrasound Minutes - 09096: 8 Ultrasound - 91195: Continuous 100%, 8 minutes, 1.5 W/cm2, Frequency 3MHz Ultrasound Body Part and Patient Position: L medial knee along pes anserine Total Timed Modality Minutes: 8 Modalities Non-Timed Vasopneumatic Device Minutes - 34479: 15 Vasopneumatic Device - 53876: 15 minutes L knee post Electrical Stimulation Unattended Minutes- G0283: 15 Electrical Stimulation Unattended - 73323/G0283: 15 minutes L knee/distal adductors post Cold Pack - 15191: 15 minutes L knee post Total Non- Timed Modality Minutes: 30 Education Was Education Provided: Yes Topic: HEP Recipient: Patient Method: Demonstration, Verbal, Written, Return Demonstration Response: Demonstrates adequately, Verbalized understanding Barriers: None ASSESSMENT Assessment Note: Love continues to have soreness in her L medial knee and B hips. Her treatment focused on flexibility and strengthening exercises. She would benefit from continued PT to progress her pain further. PLAN Plan Next Visit Plan: Progress as tolerated per PT POC Total Time Total Time in Minutes: 93 Timed Code Treatment Minutes : 63 documented in this encounter Plan of Treatment Upcoming Encounters Date Type Department Care Team (Late st Contact Info) Description 11/02/2024 8:00 AM CUSTOMER RETENTION SPECIALIST Office Visit [address] [place] [address] Ella Hodge FNP [address] [place] [address] [place] [address] 01/19/2025 11:00 AM CDT Office Visit [facility] Medical Group Pulmonology Specialty [facility] - [place] [address] [facility] [place] [address] Stanley Jim MD [address] [place] [address] 06/23/2025 8:20 AM CDT Office Visit [facility] [address] [place] [address] Ella Hodge FNP [address] [place] [address] documented as of this encounter Visit Diagnoses Diagnosis Pain in left knee- Primary Pain in joint, lower leg documented in this encounter Additional Health Concerns Assessment Noted Time PHQ-9 Depression Total Score: 0 05/09/20 23 10:49 AM CDT documented as of this encounter Care Teams Patent Examiner Relationship Specialty Start Date End Date Ella Hodge FNP [address] [place] [address] [place] [address] PCP - General NURSE PRACTITIONER 05/09/23 Joon Lewis PA PHYSICIAN HEAD END DESIZING MACHINE OPERATOR 05/09/21 Callie Guerrero DO Risk Compliance Analyst OBGYN 06/14/21 [place] [address] [address] GASTROENTEROLOGY 06/14/21 Sergey Ramey PA [address] [place] [address] [place] [address] PHYSICIAN HEAD END DESIZING MACHINE OPERATOR 06/14/21 Jony Pruitt DPM [address] [facility], [address] [place] [address] Referring Physician PODIATRY/SURGERY 06/14/21 [place] [address] [place] [address] ORTHOPAEDIC SURGERY 06/14/21 documented as of this encounter
--- OUTSIDE RECORDS SUMMARY | 2024-10-24 11:52 | XMS_ITS | Encounter Summary ---
Author Organization [facility] Address [facility]6 [facility] [place], [place] [address] [place] [address] Care Team Providers Care Wet Process Assistant Head Miller Name Role Phone Joon Lewis Unavailable Callie Guerrero DO Unavailable [phone] George Osorio MD Unavailable Sergey Ramey Unavailable [phone] Jony Pruitt DPM Unavailable [phone] Gama Graves MD Unavailable [phone] Ella Hodge DITCH WORKER Primary Care Provider [phone] Encounter Details Date Type Department Care Team (Latest Contact Info) Description 08/26/2023 Travel Social History Tobacco Use Types Packs/Day [...] st Contact Info) Description 11/02/2024 8:00 AM DATABASE ADMINISTRATION ASSOCIATE Office Visit [address] [place] [address] Ella Hodge FNP [address] [facility] [place] [address] 01/19/2025 11:00 AM CDT Office Visit [facility] Medical Group Pulmonology Specialty Clinic - [address] [place] [address] Stanley Jim MD [address] [place] [address] 06/23/2025 8:20 AM CDT Office Visit [address] [place] [address] Ella Hodge FNP [address] [place] [address] [place] [address] documented as of this encounter Visit Diagnoses Not on filedocumented in this encounter Additional Health Concerns Assessment Noted Time PHQ-9 Depression Total Score: 0 05/09/20 23 10:49 AM CDT documented as of this encounter Care Teams Wet Process Assistant Head Miller Relationship Specialty Start Date End Date Ella Hodge FNP [address] [place] [address] [place] [address] PCP - General NURSE PRACTITIONER 05/09/23 Joon Lewis PA PHYSICIAN READING SPECIALIST 05/09/21 Callie Guerrero DO Metal Extrusion Supervisor OBGYN 06/14/21 [place] [address] [address] [place] [address] GASTROENTEROLOGY 06/14/21 Sergey Ramey PA [address] [place] [address] PHYSICIAN READING SPECIALIST 06/14/21 Jony Pruitt DPM [address] [place] [address], [address] [place] [address] Referring Physician PODIATRY/SURGERY 06/14/21 [place] [address] [place] [address] ORTHOPAEDIC SURGERY 06/14/21 documented as of this encounter
--- OUTSIDE RECORDS SUMMARY | 2024-10-24 11:52 | XMS_ITS | Encounter Summary ---
Author Organization [facility] Address [facility]6 [facility]. [place], [place] [address] [place] [address] Care Team Providers Care Fruit Thinner Name Role Phone Joon Lewis Unavailable [phone] Callie Guerrero DO Unavailable [phone] George Osorio MD Unavailable Sergey Ramey Unavailable [phone] Jony Pruitt DPM Unavailable [phone] Gama Graves MD Unavailable [phone] Ella Hodge BUSINESS PLANNER Primary Care Provider [phone] Encounter Details Date Type Department Care Team (Latest Contact Info) Description 08/21/2023 Travel Social History Tobacco Use Types Packs/Day [...] st Contact Info) Description 11/02/2024 8:00 AM CRITICAL POWER INSTALL TECHNICIAN Office Visit [address] [place] [address] Ella Hodge FNP 201 [facility] [place] [address] 01/19/2025 11:00 AM CDT Office Visit [facility] Medical Group Pulmonology Specialty Clinic - [address] [place] [address] Stanley Jim MD [address] [place] [address] 06/23/2025 8:20 AM CDT Office Visit [address] [place] [address] Ella Hodge FNP [address] [place] [address] [place] [address] documented as of this encounter Visit Diagnoses Not on filedocumented in this encounter Additional Health Concerns Assessment Noted Time PHQ-9 Depression Total Score: 0 05/09/20 23 10:49 AM CDT documented as of this encounter Care Teams Fruit Thinner Relationship Specialty Start Date End Date Ella Hodge FNP [address] [place] [address] [place] [address] PCP - General NURSE PRACTITIONER 05/09/23 Joon Lewis PA PHYSICIAN INDUSTRIAL DESIGN INTERN 05/09/21 Callie Guerrero DO Cheese Cutter OBGYN 06/14/21 [place] [address] [address] [place] [address] GASTROENTEROLOGY 06/14/21 Sergey Ramey PA [address] [place] [address] PHYSICIAN INDUSTRIAL DESIGN INTERN 06/14/21 Jony Pruitt DPM [address] [place] [address], [address] [place] [address] Referring Physician PODIATRY/SURGERY 06/14/21 [place] [address] [place] [address] ORTHOPAEDIC SURGERY 06/14/21 documented as of this encounter
--- OUTSIDE RECORDS SUMMARY | 2024-10-24 11:52 | XMS_ITS | Encounter Summary ---
Author Organization [facility] Address [facility]6 [facility] [place], [place] [address] [place] [address] Care Team Providers Care Pipe And Test Supervisor Name Role Phone Joon Lewis Unavailable [phone] Callie Guerrero DO Unavailable [phone] George Osorio MD Unavailable Sergey Ramey Unavailable Jony Pruitt DPM Unavailable [phone] Gama Graves MD Unavailable [phone] Ella Hodge [facility] Primary Care Provider [phone] Reason for Visit * Physical Therapy (Routine) - Closed Specialty Diagnoses / Procedures Referred By Chet t Referred To Contact PHYSICAL THERAPY / [facility] Physical Therapy Diagnoses Pain in left knee Procedures Fabio Oshea MD [address] [facility] [address] [place] [address] Phone: tel: fax: Kathleen [place], PT [address] [place] [address] Phone: tel: fax:[phone] Referral ID Status Reason Start Date Expiration Date V isits Requested Visits Authorized [id number] Closed Physical Therapy 08/05/2023 99 99 Encounter Details Date Type Department Care Team (Late st Contact Info) Description 08/26/2023 9:53 AM CDT - 08/26/2023 11:59 PM CDT Hospital Encounter [facility] Therapy [address] [place] [address] Fabio Aguilar MD [address] [place] [address] Rosario June, [facility] [address] [place] [address] Discharge Disposition: Home or Self Care (Routine [...] as of this encounter Progress Notes * Rosario June, PERSONNEL ANALYST - 08/26/2023 10:00 AM CDT Physical Therapy Visit Note: Patient Name: Love Catherine Diagnosis: Pain in left knee (primary encounter diagnosis) SUBJECTIVE Therapy Visit Total Approved Visits: 04/03 Therapy Plan of Care: therex, manual, ice, vaso, IFC, self-care Current Therapy Orders: Eval and Treat Diagnosis: L knee pain Referring Provider: Fabio Aguilar MD Next MD Visit: 09/17/23 Date of Injury: 3 weeks ago (Late June) Subjective Note: Patient reports L knee feels OK just a little achy due to weather. Pain Current Location of Pain: L knee/distal adductors Current Pain Level: 2/10 Other (comments): medial aspect of L knee. OBJECTIVE Treatment provided today: Self -Care/Home Management - 62777 Other (Comments): HEP Therapeutic Exercise - 96065 Number of Minutes - 01234: 43 Cardio Equipment: nu-step x 10 minutes level 3 Exercise: seated HS stretch x 5 Exercise: SLR 2x 10 Exercise: side lying hip abd x 10 Exercise: Hooklying hip abduction x 20 red tband Exercise: LAQ x 20 Exercise: HS curls x 20 Exercise: standing hip ab/ext/march/HR/TR x 20 Manual Therapy - 71395 Number of Minutes - 48929: 12 Intervention: B hamstring stretching Intervention: B ITB stretching Intervention: B hip ADDuctor stretching Intervention: L distal adductor STM Modalities Timed Ultrasound Minutes - 25127: 8 Ultrasound - 41075: Continuous 100%, 8 minutes, 1.5 W/cm2, Frequency 3MHz Ultrasound Body Part and Patient Position: L medial knee along pes anserine Total Timed Modality Minutes: 8 Modalities Non-Timed Vasopneumatic Device Minutes - 63294: 15 Vasopneumatic Device - 88090: 15 minutes L knee post Electrical Stimulation Unattended Minutes- G0283: 15 Electrical Stimulation Unattended - 27799/G0283: 15 minutes L knee/distal adductors post Hot/Cold Pack Minutes - 89681: 15 Cold Pack - 58747: 15 minutes L knee post Total Non- Timed Modality Minutes: 45 Education Was Education Provided: Yes Topic: HEP Recipient: Patient Method: Demonstration, Verbal, Written, Return Demonstration Response: Demonstrates adequately, Verbalized understanding Barriers: None ASSESSMENT Assessment Note: Patient tolerated all exs and stretches well with good recall and no increased discomfort L knee reported.HEP printed for patient with new exs which patient reports she will try to do daily. PLAN Plan Next Visit Plan: Progress as tolerated per PT POC Total Time Total Time in Minutes: 108 Timed Code Treatment Minutes : 63 documented in this encounter Plan of Treatment Upcoming Encounters Date Type Department Care Team (Late st Contact Info) Description 11/02/2024 8:00 AM CATH LAB MANAGER Office Visit [address] [place] [address] Ella Hodge FNP [address] [place] [address] [place] [address] 01/19/2025 11:00 AM CDT Office Visit [facility] Medical Group Pulmonology Specialty Clinic - [place] [address] [place] [address] Stanley Jim MD [address] [place] [address] 06/23/2025 8:20 AM CDT Office Visit [facility] [address] [place] [address] Ella Hodge FNP [address] [place] [address] documented as of this encounter Visit Diagnoses Diagnosis Pain in left knee- Primary Pain in joint, lower leg documented in this encounter Additional Health Concerns Assessment Noted Time PHQ-9 Depression Total Score: 0 05/09/20 10:49 AM CDT documented as of this encounter Care Teams Pipe And Test Supervisor Relationship Specialty Start Date End Date Ella Hodge FNP [address] [facility] [place] [address] PCP - General NURSE PRACTITIONER 05/09/23 Joon Lewis PA PHYSICIAN EMERGENCY DEPARTMENT TECHNICIAN 05/09/21 Callie Guerrero DO Crm Business Analyst OBGYN 06/14/21 [place] [address] [address] GASTROENTEROLOGY 06/14/21 Sergey Ramey PA [address] [facility] [place] [address] PHYSICIAN EMERGENCY DEPARTMENT TECHNICIAN 06/14/21 Jony Pruitt, DPM [address] [facility], [address] [place] [address] Referring Physician PODIATRY/SURGERY 06/14/21 [place] [address] [place] [address] ORTHOPAEDIC SURGERY 06/14/21 documented as of this encounter
--- OUTSIDE RECORDS SUMMARY | 2024-10-24 11:52 | XMS_ITS | Encounter Summary ---
Author Organization [facility] Address [facility]6 [facility]. [place], [place] [address] [place] [address] Care Team Providers Care Second Mate Name Role Phone Joon Lewis Unavailable [phone] Callie Guerrero DO Unavailable George Osorio MD Unavailable Sergey Ramey Unavailable [phone] Jony Pruitt DPM Unavailable [phone] Gama Graves MD Unavailable [phone] Ella Hodge PLACEMENT MANAGER Primary Care Provider [phone] Encounter Details Date Type Department Care Team (Latest Contact Info) Description 08/13/2023 Travel Social History Tobacco Use Types Packs/Day [...] st Contact Info) Description 11/02/2024 8:00 AM SUPERVISOR FRUIT GRADING Office Visit [address] [place] [address] Ella Hodge FNP 201 [facility] [place] [address] 01/19/2025 11:00 AM CDT Office Visit [facility] Medical Group Pulmonology Specialty Clinic - [address] [place] [address] Stanley Jim MD [address] [place] [address] 06/23/2025 8:20 AM CDT Office Visit [address] [place] [address] Ella Hodge FNP [address] [place] [address] [place] [address] documented as of this encounter Visit Diagnoses Not on filedocumented in this encounter Additional Health Concerns Assessment Noted Time PHQ-9 Depression Total Score: 0 05/09/20 23 10:49 AM CDT documented as of this encounter Care Teams Second Mate Relationship Specialty Start Date End Date Ella Hodge FNP [address] [place] [address] [place] [address] PCP - General NURSE PRACTITIONER 05/09/23 Joon Lewis PA PHYSICIAN CERTIFIED NUTRITIONIST 05/09/21 Callie Guerrero DO Press Machine Feeder OBGYN 06/14/21 [place] [address] [address] [place] [address] GASTROENTEROLOGY 06/14/21 Sergey Ramey PA [address] [place] [address] PHYSICIAN CERTIFIED NUTRITIONIST 06/14/21 Jony Pruitt DPM [address] [place] [address], [address] [place] [address] Referring Physician PODIATRY/SURGERY 06/14/21 [place] [address] [place] [address] ORTHOPAEDIC SURGERY 06/14/21 documented as of this encounter
--- OUTSIDE RECORDS SUMMARY | 2024-10-24 11:53 | XMS_ITS | Encounter Summary ---
Author Organization [facility] Address [facility]6 [facility] [place], [place] [address] [place] [address] Care Team Providers Care Tobacco Wrapping Machine Tender Name Role Phone Demetrio Shore MD Primary Care Pr ovider Unavailable Joon Lewis Unavailable [phone] Callie Guerrero DO Unavailable George Osorio MD Unavailable Sergey Ramey Unavailable [phone] Jony Pruitt DPM Unavailable [phone] Gama Graves MD Unavailable [phone] Encounter Details Date Type Department Care Team (Latest Contact Info) Description 11/26/2022 Travel Social History Tobacco Use Types Packs/Day Years Used Date Smoking Tobacco: Never Smokeless Tobacco: Never Alcohol Use Standard Drinks/Week Comments No 0 (1 standard drink = 0.6 oz pur e alcohol) AUDIT-C Answer Date Recorded Frequency of Alcohol Consumption Never 10/14/2019 Average Number of Drinks Not on file 019 Frequency of Binge Drinking Not on file 09/26 PHQ-2 Answer Date Recorded PHQ-2 Score - If the patient scores above 3, please move on to questions 3-9 0 07/03/2022 Comments No Sex and Gender Information Value Date Recorded Sex Assigned at Not on file Legal Sex Female 5:51 PM CDT Gender Identity Not on file Sexual Orientation Not on file COVID-19 Exposure Response Date Recorded In the last 10 days, have yo u been in contact with someone who was confirmed or suspected to have Coronavirus/COVID-19? No / Unsure 11/26/2022 9:49 AM MANUFACTURING ENGINEERING DIRECTOR documented as of this encounter Plan of Treatment Upcoming Encounters Date Type Department Care Team (Late st Contact Info) Description 11/02/2024 8:00 AM MANUFACTURING ENGINEERING DIRECTOR Office Visit [address] [place] [address] Ella Hodge [address] [place] [address] 01/19/2025 11:00 AM CDT Office Visit [facility] Medical Group Pulmonology Specialty Clinic [address] [place] [address] Stanley Jim MD [address] [place] [address] 06/23/2025 8:20 AM CDT Office Visit [address] [place] [address] Ella Hodge [address] [place] [address] documented as of this encounter Visit Diagnoses Not on filedocumented in this encounter Additional Health Concerns Assessment Noted Time PHQ-9 Depression Total Score: 0 01/25/20 8:15 AM CDT documented as of this encounter Care Teams Tobacco Wrapping Machine Tender Relationship Specialty Start Date End Date Demetrio Shore MD PCP - General FAMILY PRACTICE 11/11/19 03/29/23 Joon Lewis PA PHYSICIAN BULLET LUBRICANT MIXER 05/09/21 Callie Guerrero DO Bag Checker OBGYN 06/14/21 [place] [address] [facility] [address] [place] [address] GASTROENTEROLOGY 06/14/21 Sergey Ramey PA [address] [place] [address] PHYSICIAN BULLET LUBRICANT MIXER 06/14/21 Jony Pruitt DPM [address] [place] [address], [address] [place] [address] Referring Physician PODIATRY/SURGERY 06/14/21 [place] [address] [place] [address] ORTHOPAEDIC SURGERY 06/14/21 documented as of this encounter
--- OUTSIDE RECORDS SUMMARY | 2024-10-24 11:53 | XMS_ITS | Encounter Summary ---
Author Organization [facility] Address [facility]. [place], [place] [address] [place] [address] Care Team Providers Care Space Sciences Director Name Role Phone Demetrio Shore MD Primary Care Pr ovider Unavailable Joon Lewis Unavailable [phone] Callie Guerrero DO Unavailable [phone] George Osorio MD Unavailable Sergey Ramey Unavailable Jony Pruitt DPM Unavailable [phone] Gama Graves MD Unavailable [phone] Reason for Visit * Reason Onset Date Comments Results 02/06/2023 Encounter Details Date Type Department Care Team (Late st Contact Info) Description 02/06/2023 Telephone [facility] Medical [facility] Multispecialty Care - [address] [place] [address] Demetrio Shore MD Results Social History Tobacco Use Types Packs/Day Years [...] as of this encounter Progress Notes * Yaneli Rosales MA - 02/07/2023 2:36 PM CDT Pt was informed of results as per below and verbalized understanding. Pt states she is not taking NSAIDs and only Tylenol prn * Demetrio Shore MD - 02/06/2023 8:26 AM CDT GFR is 59 and is stable from previous labs. It is low, but it has not decreased further. Try to reduce use of NSAIDs such as ibuprofen, motrin, aleve, etc. A1c went from 5.9 to 5.5 now which is in the normal range. Rest of labs such as her lipid panel, vitamin D, electrolytes, glucose, liver enzymes are normal. Please continue crestor (rosuvastatin) andlisinopril. documented in this encounter Plan of Treatment Upcoming Encounters Date Type Department Care Team (Late st Contact Info) Description 11/02/2024 8:00 AM SUPERVISOR POLICY CHANGE CLERKS Office Visit [facility] [address] [place], [place] [id number] Ella Hodge FNP [address] [place], [place] [id number] 01/19/2025 11:00 AM CDT Office Visit [facility] Medical Group Pulmonology Specialty Clinic - [address] [place], [place] [phone] Stanley Jim MD [address] [place] [address] 06/23/2025 8:20 AM CDT Office Visit [facility] [address] [place] [address] Ella Hodge FNP [address] [place] [address] documented as of this encounter Visit Diagnoses Not on filedocumented in this encounter Additional Health Concerns Assessment Noted Time PHQ-9 Depression Total Score: 0 01/25/20 8:15 AM CDT documented as of this encounter Care Teams Space Sciences Director Relationship Specialty Start Date End Date Demetrio Shore MD PCP - General FAMILY PRACTICE 11/11/19 03/29/23 Joon Lewis PA PHYSICIAN JET MAN 05/09/21 Callie Guerrero DO Dumper Bailer Operator OBGYN 06/14/21 [place] [address] [phone] GASTROENTEROLOGY 06/14/21 Sergey Ramey PA [address] [place] [address] [place] [address] PHYSICIAN JET MAN 06/14/21 Jony Pruitt DPM [address] [place] [address], [address] [place] [address] Referring Physician PODIATRY/SURGERY 06/14/21 [place] [address] [place] [address] ORTHOPAEDIC SURGERY 06/14/21 documented as of this encounter
--- OUTSIDE RECORDS SUMMARY | 2024-10-24 11:53 | XMS_ITS | Encounter Summary ---
Author Organization [facility] Address [facility]6 [facility]. [place], [place] [address] [place] [address] Care Team Providers Care Commercial Artist Name Role Phone Demetrio Shore MD Primary Care Pr ovider Unavailable Joon Lewis Unavailable [phone] Callie Guerrero DO Unavailable [phone] George Osorio MD Unavailable Sergey Ramey Unavailable [phone] Jony Pruitt DPM Unavailable [phone] Gama Graves MD Unavailable [phone] Encounter Details Date Type Department Care Team (Latest Contact Info) Description 12/03/2022 Travel Social History Tobacco Use Types Packs/Day [...] suspected to have Coronavirus/COVID-19? No / Unsure 12/03/2022 9:26 AM LITIGATION ATTORNEY documented as of this encounter Plan of Treatment Upcoming Encounters Date Type Department Care Team (Late st Contact Info) Description 11/02/2024 8:00 AM LITIGATION ATTORNEY Office Visit [address] [place] [address] Ella Hodge [address] [place] [address] 01/19/2025 11:00 AM CDT Office Visit [facility] Pul[facility] Special[facility] [address] [place] [address] Stanley iJm MD [address] [place] [address] 06/23/2025 8:20 AM CDT Office Visit [address] [place] [place] [address] Ella Hodge [address] [place] [address] documented as of this encounter Visit Diagnoses Not on filedocumented in this encounter Additional Health Concerns Assessment Noted Time PHQ-9 Depression Total Score: 0 01/25/20 8:15 AM CDT documented as of this encounter Care Teams Commercial Artist Relationship Specialty Start Date End Date Demetrio Shore MD PCP - General FAMILY PRACTICE 11/11/19 03/29/23 Joon Lewis PA PHYSICIAN MAINTENANCE MECHANIC ENGINE 05/09/21 Callie Guerrero DO Manager Art OBGYN 06/14/21 [place] [address] [facility] [address] [place] [address] GASTROENTEROLOGY 06/14/21 Sergey Ramey PA [address] [place] [address] PHYSICIAN MAINTENANCE MECHANIC ENGINE 06/14/21 Jony Pruitt DPM [address] [place] [address], [address] [place] [address] Referring Physician PODIATRY/SURGERY 06/14/21 [place] [address] [place] [address] ORTHOPAEDIC SURGERY 06/14/21 documented as of this encounter
--- OUTSIDE RECORDS SUMMARY | 2024-10-24 11:53 | XMS_ITS | Encounter Summary ---
Author Organization [facility] Address [address] [facility]. [place], [place] [address] [place] [address] Care Team Providers Care Rehabilitation Consultant Name Role Phone Joon Lewis Unavailable [phone] Callie Guerrero DO Unavailable [phone] George Osorio MD Unavailable Sergey Ramey Unavailable Jony Penaloza DPM Unavailable [phone] Gama Graves MD Unavailable [phone] Manasa Hodge [facility] Primary Care Provider [phone] Reason for Visit * Reason Comments Meet and Greet Provider Pt's PCP has mov ed out of the area. 2 concerns - has been very cold for the past few months. Noticed that it's been since she had COVID in September. Is also having bowel movement issues - sometimes won't go for days and then sense of urgency and diarrhea. Encounter Details Date Type Department Care Team (Late st Contact Info) Description 05/09/2023 10:40 AM CDT Office Visit [address] [place] [address] Manasa Hodge [place] [address] [place] [address] Meet and Greet Provider (Pt's PCP has moved out of the area. 2 concerns - has been very cold for the past few months. Noticed that it's been since she had COVID in September. Is also having bowel movement issues - sometimes won't go for days and then sense of urgency and diarrhea.) Social History Tobacco Use Types Packs/Day Years [...] Sign Reading Time Taken Comments Blood Pressure 132/68 05/09/2023 10:37 AM CDT Pulse 75 05/09/2023 10:37 AM CDT Temperature 36.8 ??C (98.2 ??F) 05/09/2023 1 0:37 AM CDT Respiratory Rate 16 05/09/2023 10:3 7 AM CDT Oxygen Saturation 98% 05/09/2023 10: 37 AM CDT Inhaled Oxygen Concentration - - Weight 65.7 kg (144 lb 14.4 oz) 023 10:37 AM CDT Height 152.4 cm (5') 05/09/2023 10:37 AM CDT Body Mass Index 28.3 05/09/2023 10:37 AM CDT documented in this encounter Patient Instructions * Patient Instructions* THEODORA Kendall - 05/09/2023 10:40 AM CDT KUB without abnormality. Follow up with GI in regards to change in bowel habits. Continue to keep diary of symptoms. Update labs with health fair in the Spring. Let me know when you need medication refills. Please check additional thyroid studies to evaluate cold intolerance. documented in this encounter Progress Notes * THEODORA Kendall - 05/09/2023 10:40 AM CDT Love Catherine is a 77-year-old female patient. Reason for Visit: Meet and Greet Provider (Pt's PCP has moved out of the area. 2 concerns - has been very cold for the past few months. Noticed that it's been since she had COVID in September. Is also having bowel movement issues - sometimes won't go for days and then sense of urgency and diarrhea.) History of Present Illness: Here to establish care with me, previous PCP Dr. Mcbride. HTN: controlled on current medication Hyperlipidemia: controlled on current medication. Tolerates crestor without known side effects. Chronic rhinitis/allergies: controlled on current medication CKD: stage 3, GFR stable at 59. Breast cancer screening up to date. Due to update colon cancer screening this year. States she has noticed changes in bowel habits. Will go several days without having bowel movement and then will have urgent need to go that is liquid diarrhea, once she empties she feels fine. Denies any abdominal pain/cramping. No weight loss. Appetite has been normal GERD is controlled on current famotidine dose. Episodes are not food related. Noblood or mucous in stools. Also reports a feeling of being cold. This started after COVID infection in September. Doesn't tolerate air conditioned rooms like other people. Needs to wear a long sleeve shirt. Feels cold at night.Labs completed in December show normal TSH, CBC and iron count. ROS: Review of Systems Constitutional: Negative. Respiratory: Negative. Cardiovascular: Negative. Gastrointestinal: See HPI Psychiatric/Behavioral: Negative. Medications: Current Outpatient Medications: ggwrwllmvp-ulyfxvwlmgpbv-ghscejws 50-325-40 MG tablet, Take 1 tablet by mouth every 4 (four) hours as needed., Disp: , Rfl: Calcium Carbonate-Vitamin D (CALCIUM 500 + D OR), Organic Plant Calcium with vitamin D3 and magnesium, Disp: , Rfl: cetirizine 10 MG tablet, Take 1 tablet (10 mg total) by mouth daily., Disp: , Rfl: famotidine (PEPCID) 20 MG tablet, TAKE 1 TABLET BY MOUTH TWICE A DAY (Patient taking differently: Take 2 tablets (40 mg total) by mouth daily.), Disp: 180 tablet, Rfl: 1 hypromellose 0.3 % ophthalmic gel, Place into both eyes 2 (two) times daily., Disp: , Rfl: IPRATROPIUM 0.03 % nasal spray, USE 2 SPRAYS INTO EACH NOSTRIL EVERY 12 HOURS (Patient taking differently: as needed.), Disp: 30 mL, Rfl: 0 lisinopril (PRINIVIL) 20 MG tablet, TAKE 1 TABLET BY MOUTH EVERY DAY, Disp: 90 tablet, Rfl: 1 montelukast (SINGULAIR) 10 MG tablet, TAKE 1 TABLET BY MOUTH EVERY DAY, Disp: 90 tablet, Rfl: 1 NON FORMULARY, C- pap ; q hs, Disp: , Rfl: omega-3 fatty acid 1000 MG capsule, Take 1 capsule (1,000 mg total) by mouth 2 (two) times daily., Disp: , Rfl: rosuvastatin (CRESTOR) 20 MG tablet, TAKE 1 TABLET BY MOUTH EVERYDAY AT BEDTIME, Disp: 90 tablet, Rfl: 1 triamcinolone 0.1 % cream, Apply topically 3 (three) times daily. (Patient taking differently: Apply topically as needed.), Disp: 15 g, Rfl: 0 vitamin D3, cholecalciferol, 75 MCG (3000 UT) [...] History: Procedure Laterality Date BREAST BIOPSY COLONOSCOPY FOOT SURGERY Left 03/14/2021 dr jony penaloza THROAT SURGERY PROCEDURE UNLISTED TOTAL HIP ARTHROPLASTY Right 11/17/2019 Social History Tobacco Use Smoking status: Never Smokeless tobacco: Never Vaping Use Vaping Use: Never used Substance Use Topics Alcohol use: No Drug use: No Family History Problem Relation Name Age of Onset Other (TIA) Mother Colon Cancer Brother Migraines Daughter Family Status Relation Name Status Mother Brother Father Daughter (Not Specified) Brother Alive Filed Vitals: 05/09/23 1037 BP: 132/68 Pulse: 75 Resp: 16 Temp: 98.2 ??F (36.8 ??C) TempSrc: Tympanic SpO2: 98% Weight: 65.7 kg (144 lb 14.4 oz) Height: 5' (1.524 m) Body mass index is 28.3 kg/m??. Physical Exam: Physical Exam Constitutional: Appearance: [...] Judgment: Judgment normal. Diagnoses/Impression: Encounter Diagnose(s) ICD-10-CM ICD-9-CM SNOMED CT(R) 1. Encounter to establish care Z76.89 V65.8 PATIENT ENCOUNTER STATUS 2. Stage 3a chronic kidney disease (CMS/HCC) N18.31 585.3 CHRONIC KIDNEY DISEASE STAGE 3A 3. Mixed hyperlipidemia E78.2 272.2 MIXED HYPERLIPIDEMIA 4. Change in bowel habits R19.4 787.99 ALTERED BOWEL FUNCTION XR ABD KUB 5. Chronic rhinitis J31.0 472.0 CHRONIC RHINITIS 6. Cold intolerance R68.89 780.99 INTOLERANT OF COLD THYROID STIM HORMONE, TSH THYROXINE, FREE (FT4) Recommendations and Plan: Chronic conditions are controlled, will continue with current medicationsand may refill them x 6 months when needed. Change in bowel habits: KUB to check for constipation and follow up with GI. Cold intolerance: check additional thyroid studies. Reviewed signs and symptoms of worsening condition and when to seek treatment. Patient Instructions KUB without abnormality. Follow up with GI in regards to change in bowel habits. Continue to keep diary of symptoms. Update labs with health fair in the Spring. Let me know when you need medication refills. Please check additional thyroid studies to evaluate cold intolerance. THEODORA KENDALL Cosigned by Ziggy Harding MD at 05/11/2023 6:02 PM CDT documented in this encounter Plan of Treatment Upcoming Encounters Date Type Department Care Team (Late st Contact Info) Description 11/02/2024 8:00 AM COMPUTER SYSTEM TECHNICIAN Office Visit [address] [place] [address] Manasa Hodge FNP [address] [place] [address] [place], [place] [address] 01/19/2025 11:00 AM CDT Office Visit [facility] Medical Group Pulmonology Specialty Clinic [address] [place], [place] [address] Stanley Jim MD [address] [place] [address] 06/23/2025 8:20 AM CDT Office Visit [address] [place] [address] Manasa Hodge FNP [address] [place] [address] [place] [address] documented as of this encounter Results * (ABNORMAL) THYROXINE, FREE (FT4) (05/28/2023 8:35 AM CDT) FREE T4 0.72(L) 0.76 - 1.46 NG/DL 05/28/2023 9:45 AM CDT [facility] Comment: HIGH DOSES OF BIOTIN MAY INTERFERE WITH THIS TEST RESULT. CORRELATION TO CLINICAL HISTORY AND PRESENTATION RECOMMENDED. 05/28/2023 8:35 AM CDT Manasa [facility] FOOD PRODUCTION SUPERVISOR LABORATORY Final Res ult Performing Organization Address [facility] de Phone Number [facility] [address] [facility] [address], [place] * THYROID STIM HORMONE, TSH (05/28/2023 8:35 AM CDT) TSH 1.688 0.358 - 3.740 uIU/ML 05/28/2023 9:45 AM CDT [facility] Comment: HIGH DOSES OF BIOTIN MAY INTERFERE WITH THIS TEST RESULT. CORRELATION TO CLINICAL HISTORY AND PRESENTATION RECOMMENDED. 05/28/2023 8:35 AM CDT [facility]as[facility] FOOD PRODUCTION SUPERVISOR LABORATORY Final Res ult Performing Organization Address [facility] de Phone Number [facility] [address] [facility] [place] [address], [place] * XR ABD KUB (05/09/2023 12:07 PM CDT) Anatomical Region Laterality Modality Abdomen Computed Tomogra phy 05/09/2023 12:4 0 PM CDT Impressions 05/09/2023 12:41 PM CDT IMPRESSION: No acute findings Ordered By: MANASA HODGE Interpreted By: Saurabh Kate MD, 05/09/2023 12:40 PM Narrative 05/09/2023 12:41 PM CDT Two VIEW(s) OF THE ABDOMEN History: Constipation Comparison:None A single view of the abdomen demonstrates a normal overall bowel gas pattern. Quantity of stool throughout the colon is within normal limits. No pathologic intra-abdominal calcifications are seen. The bony elements are intact Procedure Note Saurabh Kate MD - 05/09/2023 Two VIEW(s) OF THE ABDOMEN History: Constipation Comparison:None A single view of the abdomen demonstrates a normal overall bowel gaspattern. Quantity of stool throughout the colon is within normal limits.No pathologic intra- abdominal calcifications are seen. The bony elementsare intact IMPRESSION: No acute findings Ordered By: MANASA HODGE Interpreted By: Saurabh Kate MD, 05/09/2023 12:40 PM Manasa Hodge FOOD PRODUCTION SUPERVISOR GENERAL IMAGING Final Res ult documented in this encounter Visit Diagnoses Diagnosis Encounter to establish care- Primary Other reasons for seeking consultation Stage 3a chronic kidney disease (CMS/HCC HHS/HCC) Mixed hyperlipidemia Change in bowel habits Other symptoms involving digestive system Chronic rhinitis Cold intolerance Other general symptoms Constipation, unspecified constipation type documented in this encounter Additional Health Concerns Assessment Noted Time PHQ-9 Depression Total Score: 0 05/09/20 10:49 AM CDT documented as of this encounter Care Teams Rehabilitation Consultant Relationship Specialty Start Date End Date Manasa Hodge FNP [facility] [address] PCP - General NURSE PRACTITIONER 05/09/23 Joon Lewis PA PHYSICIAN LOAN SUPERVISOR 05/09/21 Callie uGerrero DO Manager Technical Services OBGYN 06/14/21 [place] [address] [phone] GASTROENTEROLOGY 06/14/21 Sergey Ramey PA [address] [place] [address] [place] [address] PHYSICIAN LOAN SUPERVISOR 06/14/21 Jony Penaloza DPM [address] [place] [address], [address] [place] [address] Referring Physician PODIATRY/SURGERY 06/14/21 [place] [address] [place] [address] ORTHOPAEDIC SURGERY 06/14/21 documented as of this encounter
--- OUTSIDE RECORDS SUMMARY | 2024-10-24 11:53 | XMS_ITS | Encounter Summary ---
Author Organization [facility] Address [facility]6 [facility]. [place], [place] [address] [place] [address] Care Team Providers Care Retail Loan Originator Assistant Name Role Phone Joon Lewis Unavailable [phone] Callie Guerrero DO Unavailable [phone] George Osorio MD Unavailable Sergey Ramey Unavailable [phone] Jony Pruitt DPM Unavailable [phone] Gama Graves MD Unavailable Ella Hodge MARBLE RUBBER Primary Care Provider [phone] Encounter Details Date Type Department Care Team (Latest Contact Info) Description 07/31/2023 Scan HEALTH INFO SRVCS Scanned, Doc Med [...] st Contact Info) Description 11/02/2024 8:00 AM JET WORKER Office Visit [address] [place] [address] Ella Hodge FNP [address] [facility] [place] [address] 01/19/2025 11:00 AM CDT Office Visit [facility] Medical [facility] Pulmonology Specialty Clinic - [address] [place] [address] Stanley Jim MD [address] [place] [address] 06/23/2025 8:20 AM CDT Office Visit [address] [place] [address] Ella Hodge FNP [address] [place] [address] [place] [address] documented as of this encounter Visit Diagnoses Not on filedocumented in this encounter Additional Health Concerns Assessment Noted Time PHQ-9 Depression Total Score: 0 05/09/20 10:49 AM CDT documented as of this encounter Care Teams Retail Loan Originator Assistant Relationship Specialty Start Date End Date Ella Hodge FNP [address] [place] [address] [place] [address] PCP - General NURSE PRACTITIONER 05/09/23 Joon Lewis PA PHYSICIAN HEAD SILVERMAN 05/09/21 Callie Guerrero DO Canine Service Teacher OBGYN 06/14/21 [place] [address] [facility] [place] [address] GASTROENTEROLOGY 06/14/21 Sergey Ramey PA [address] [place] [address] PHYSICIAN HEAD SILVERMAN 06/14/21 Jony Pruitt DPM [address] [place] [address], [address] [place] [address] Referring Physician PODIATRY/SURGERY 06/14/21 [place] [address] [place] [address] ORTHOPAEDIC SURGERY 06/14/21 documented as of this encounter
--- OUTSIDE RECORDS SUMMARY | 2024-10-24 11:53 | XMS_ITS | Encounter Summary ---
Author Organization [facility] Address [facility]. [place], [place] [address] [place] [address] Care Team Providers Care Thread Laster Name Role Phone Joon Lewis Unavailable [phone] Callie Guerrero DO Unavailable [phone] George Osorio MD Unavailable Sergey Ramey Unavailable [phone] Jony Pruitt DPM Unavailable [phone] Gama Graves MD Unavailable [phone] Ella Hodge SAND CONDITIONER Primary Care Provider [phone] Encounter Details Date Type Department Care Team (Late st Contact Info) Description 06/09/2023 Orders Only [facility] [address] [place], [place] [id number] Julia العراقي, SHELTER DIRECTOR Social History Tobacco Use Types Packs/Day Years [...] Contact Info) Description 11/02/2024 8:00 AM AUTOMOTIVE FINANCE MANAGER Office Visit [address] [place] [address] Ella Hodge FNP [address] [facility] [place] [address] 01/19/2025 11:00 AM CDT Office Visit [facility] Medical Group Pulmonology Specialty [facility] [place] [address] [facility] [place] [address] Stanley Jim MD [address] [place] [address] 06/23/2025 8:20 AM CDT Office Visit [address] [place] [address] Ella Hodge FNP [address] [facility] [place] [address] documented as of this encounter Visit Diagnoses Diagnosis Encounter for screening mammogram for breast cancer- Primary documented in this encounter Additional Health Concerns Assessment Noted Time PHQ-9 Depression Total Score: 0 05/09/20 10:49 AM CDT documented as of this encounter Care Teams Thread Laster Relationship Specialty Start Date End Date Ella Hodge FNP [address] [facility] [place] [address] PCP - General NURSE PRACTITIONER 05/09/23 Joon Lewis PA PHYSICIAN CONCESSIONS MANAGER 05/09/21 Callie Guerrero DO Assistant Terminal Manager OBGYN 06/14/21 [place] [address] [address] [facility]eman [facility] [address] [place] [address] GASTROENTEROLOGY 06/14/21 Sergey Ramey PA [address] [place] [address] PHYSICIAN CONCESSIONS MANAGER 06/14/21 Jony Pruitt DPM [address] [place] [address], [facility] [address] [place] [address] Referring Physician PODIATRY/SURGERY 06/14/21 [place] [address] [place] [address] ORTHOPAEDIC SURGERY 06/14/21 documented as of this encounter
--- OUTSIDE RECORDS SUMMARY | 2024-10-24 11:53 | XMS_ITS | Encounter Summary ---
Author Organization [facility] Address [facility]. [place], [place] [address] [place] [address] Care Team Providers Care Sitecore Developer Name Role Phone Demetrio Shore MD Primary Care Pr ovider Unavailable Joon Lewis Unavailable [phone] Callie Guerrero DO Unavailable [phone] George Osorio MD Unavailable Sergey Ramey Unavailable [phone] Jony Pruitt DPM Unavailable [phone] Gama Graves MD Unavailable [phone] Encounter Details Date Type Department Care Team (Latest Contact Info) Description 12/13/2022 Travel Social History Tobacco Use Types Packs/Day [...] suspected to have Coronavirus/COVID-19? No / Unsure 12/13/2022 8:49 AM RELAY MECHANIC documented as of this encounter Plan of Treatment Upcoming Encounters Date Type Department Care Team (Late st Contact Info) Description 11/02/2024 8:00 AM RELAY MECHANIC Office Visit [address] [place] [address] Ella Hodge [address] [place] [address] 01/19/2025 11:00 AM CDT Office Visit [facility] [address] [place] [address] Stanley Jim MD [address] [place] [address] 06/23/2025 8:20 AM CDT Office Visit [address] [place] [address] Ella Hodge [address] [place] [address] documented as of this encounter Visit Diagnoses Not on filedocumented in this encounter Additional Health Concerns Assessment Noted Time PHQ-9 Depression Total Score: 0 01/25/20 8:15 AM CDT documented as of this encounter Care Teams Sitecore Developer Relationship Specialty Start Date End Date Demetrio Shore MD PCP - General FAMILY PRACTICE 11/11/19 03/29/23 Joon Lewis PA PHYSICIAN PROSPECTING DRILLER 05/09/21 Callie Guerrero DO Freezer Worker OBGYN 06/14/21 [place] [address] [facility] [address] [place] [address] GASTROENTEROLOGY 06/14/21 Sergey Ramey PA [address] [place] [address] PHYSICIAN PROSPECTING DRILLER 06/14/21 Jony Pruitt DPM [address] [place] [address], [address] [place] [address] Referring Physician PODIATRY/SURGERY 06/14/21 [place] [address] [place] [address] ORTHOPAEDIC SURGERY 06/14/21 documented as of this encounter
--- OUTSIDE RECORDS SUMMARY | 2024-10-24 11:53 | XMS_ITS | Encounter Summary ---
Author Organization [facility] Address [facility]. [place], [place] [address] [place] [address] Care Team Providers Care Risk And Insurance Manager Name Role Phone Joon Lewis Unavailable [phone] Callie Guerrero DO Unavailable [phone] George Osorio MD Unavailable Sergey Ramey Unavailable Jony Pruitt DPArthur Unavailable Gama Graves MD Unavailable [phone] Manasa GoodwinP Primary Care Provider [phone] Encounter Details Date Type Department Care Team (Late st Contact Info) Description 05/09/2023 11:45 AM CDT - 05/09/2023 11:59 PM CDT Hospital Encounter [facility] Diagnostic Imaging [address] [place] [address] Manasa Goodwin FNP [address] [place] [address] Discharge Disposition: Home or Self Care [...] MOUTH TWICE A DAY 180 tablet 1 12/04/2022 3 hypromellose 0.3 % ophthalmic gel Place into both eyes 2 (two) times daily. 4 IPRATROPIUM 0.03 % nasal sprayIndications:Art al congestion USE 2 SPRAYS INTO EACH NOSTRIL EVERY 12 HOURS 30 mL 10/22/2021 4 lisinopril (PRINIVIL) 20 MG tabletIndications:Es sential hypertension TAKE 1 TABLET BY MOUTH EVERY DAY 90 tablet 1 01/09/2023 3 montelukast (SINGULAIR) 10 MG tabletIndications:Ch ronic rhinitis TAKE 1 TABLET BY MOUTH EVERY DAY 90 tablet 1 01/27/2023 3 rosuvastatin (CRESTOR) 20 MG tabletIndications:Mi xed hyperlipidemia TAKE 1 TABLET BY MOUTH EVERYDAY AT BEDTIME 90 tablet 1 12/04/2022 3 triamcinolone 0.1 % creamIndications:Bug bite, initial encounter Apply topically 3 (three) times daily. 15 g 02/19/2022 4 documented as of this encounter Progress Notes * Yesi Burnett LPN - 05/09/2023 11:45 AM CDT Patient notified. documented in this encounter Plan of Treatment Upcoming Encounters Date Type Department Care Team (Late st Contact Info) Description 11/02/2024 8:00 AM CHILDREN'S LUNCHROOM SUPERVISOR Office Visit [address] [place] [address] Manasa Goodwin [address] [place] [address] 01/19/2025 11:00 AM CDT Office Visit [facility] [address] [place] [address] Stanley Jim MD [address] [place] [address] 06/23/2025 8:20 AM CDT Office Visit [address] [place] [address] Manasa Goodwin [address] [place] [address] documented as of this encounter Procedures Procedure Name Priority Date/Time Associated Diagnosis Comments XR ABD KUB Routine 05/09/2023 12:07 PM CDT Constipation, unspecified constipation type documented in this encounter Results * XR ABD KUB (05/09/2023 12:07 PM CDT) Anatomical Region Laterality Modality Abdomen Computed Tomogra phy 05/09/2023 12:4 0 PM CDT Impressions 05/09/2023 12:41 PM CDT IMPRESSION: No acute findings Ordered By: MANASA GOODWIN Interpreted By: Saurabh Kate MD, 05/09/2023 12:40 [...] IMPRESSION: No acute findings Ordered By: MANASA GOODWIN Interpreted By: Saurabh Kate MD, 05/09/2023 12:40 PM Manasa Goodwin EDITOR IN CHIEF GENERAL IMAGING Final Res ult documented in this encounter Visit Diagnoses Diagnosis Constipation, unspecified constipation type documented in this encounter Additional Health Concerns Assessment Noted Time PHQ-9 Depression Total Score: 0 05/09/20 23 10:49 AM CDT documented as of this encounter Care Teams Risk And Insurance Manager Relationship Specialty Start Date End Date Manasa Goodwin FNP [address] [place] [address] [place] [address] PCP - General NURSE PRACTITIONER 05/09/23 Joon Lewis PA PHYSICIAN TOOL AND DIE ENGINEER 05/09/21 Donnell GuerreroeDO Lime Sludge Mixer OBGYN 06/14/21 [place] [address] [facility] [address] [place] [address] GASTROENTEROLOGY 06/14/21 Sergey Ramey PA [address] [place] [address] PHYSICIAN TOOL AND DIE ENGINEER 06/14/21 Jony Pruitt DPM [address] [place] [address], [address] [place] [address] Referring Physician PODIATRY/SURGERY 06/14/21 [place] [address] [place] [address] ORTHOPAEDIC SURGERY 06/14/21 documented as of this encounter
--- OUTSIDE RECORDS SUMMARY | 2024-10-24 11:53 | XMS_ITS | Encounter Summary ---
Author Organization [facility] Address [facility]. [place], [place] [address] [place] [address] Care Team Providers Care Financial Reporting Accountant Name Role Phone Joon Lewis Unavailable [phone] Callie Guerrero DO Unavailable [phone] George Osorio MD Unavailable Sergey Ramey Unavailable [phone] Jony Pruitt DPM Unavailable Gama Graves MD Unavailable [phone] Ella Hodge [facility] Primary Care Provider [phone] Reason for Visit * Reason Comments Knee Pain * Physical Therapy (Routine) - Closed Specialty Diagnoses / Procedures Referred By Contac t Referred To Contact PHYSICAL THERAPY / [facility] Physical Therapy Diagnoses Pain in left knee Procedures Fabio Oshea MD [address] [facility] [address] [place] [address] Phone: tel: fax: Kathleen Hamilton, PT [address] [place] [address] Phone: tel: fax: Referral ID Status Reason Start Date Expiration Date V isits Requested Visits Authorized [id number] Closed Physical Therapy 08/05/2023 99 99 Encounter Details Date Type Department Care Team (Late st Contact Info) Description 08/07/2023 10:57 AM CDT - 08/07/2023 11:59 PM CDT Hospital Encounter [facility] Therapy [address] [place] [address] Fabio Aguilar MD [address] [place] [address] Nikolas Vaca, PT [address] [facility] [place] [address] Knee Pain Discharge Disposition: Home or Self [...] Progress Notes * Nikolas Vaca, PT - 08/07/2023 11:00 AM CDT Physical Therapy Visit Note: Patient Name: Love Catherine Diagnosis: Pain in left knee (primary encounter diagnosis) SUBJECTIVE Therapy Visit Total Approved Visits: 12/04 Therapy Plan of Care: therex, manual, ice, vaso, IFC, self-care Current Therapy Orders: Eval and Treat Diagnosis: L knee pain Referring Provider: Fabio Aguilar MD Next MD Visit: 09/17/23 Date of Injury: 3 weeks ago (Late June) Subjective Note: Love reports she was pretty sore the night of her eval, but is feeling better today and not too sore. Pain Current Location of Pain: L knee/distal adductors OBJECTIVE Treatment provided today: Therapeutic Exercise - 76574 Number of Minutes - 31386: 31 Cardio Equipment: nu-step x 10 minutes level 3 Exercise: seated HS stretch Exercise: SLR x 10 Exercise: side lying SLR x 10 Exercise: Hooklying hip abduction x 20 red tband Exercise: LAQ x 20 Exercise: HS curls x 20 Manual Therapy - 96262 Number of Minutes - 55499: 14 Intervention: B hamstring stretching Intervention: B ITB stretching Intervention: B hip ADDuctor stretching Intervention: L distal adductor STM Modalities Non-Timed Vasopneumatic Device - 42908: 15 minutes L knee post Electrical Stimulation Unattended - 04574/G0283: 15 minutes L knee/distal adductors post Cold Pack - 01048: 15 minutes L knee post Education Was Education Provided: Yes Topic: HEP Recipient: Patient Method: Demonstration, Verbal, Written, Return Demonstration Response: Demonstrates adequately, Verbalized understanding Barriers: None ASSESSMENT Assessment Note: Love tolerated exercise well during this session, including the nu-step which was just introduced. She does require some cueing to keep hips rolled forward while performing sidelying SLR. She continues to have tenderness along the distal adductors during STM. Session finished with ice and IFC applied to L knee/adductors in sitting for comfort. No adverse effects noted. PLAN Plan Next Visit Plan: Progress as tolerated per PT POC Total Time Total Time in Minutes: 45 Timed Code Treatment Minutes : 45 documented in this encounter Plan of Treatment Upcoming Encounters Date Type Department Care Team (Late st Contact Info) Description 11/02/2024 8:00 AM TANK TRUCK OPERATOR Office Visit [address] [place] [address] Ella Hodge FNP [address] [place] [address] [place] [address] 01/19/2025 11:00 AM CDT Office Visit [facility] Group Pulmonology Specialty Clinic - [address] [place] [address] Stanley Jim MD [address] [place] [address] 06/23/2025 8:20 AM CDT Office Visit [facility] [address] [place] [address] Ella Hodge FNP [address] [place] [address] documented as of this encounter Visit Diagnoses Diagnosis Pain in left knee- Primary Pain in joint, lower leg documented in this encounter Additional Health Concerns Assessment Noted Time PHQ-9 Depression Total Score: 0 05/09/20 10:49 AM CDT documented as of this encounter Care Teams Financial Reporting Accountant Relationship Specialty Start Date End Date Ella Hodge FNP [address] [place] [address] PCP - General NURSE PRACTITIONER 05/09/23 Joon Lewis PA PHYSICIAN BUYER RENTER 05/09/21 Callie Guerrero DO Control Manager OBGYN 06/14/21 [place] [address] [address] GASTROENTEROLOGY 06/14/21 Sergey Ramey PA [address] [place] [address] [place] [address] PHYSICIAN BUYER RENTER 06/14/21 Jony Pruitt DPM [facility], [address] [place] [address] Referring Physician PODIATRY/SURGERY 06/14/21 [place] [address] [place], [place] [id number] ORTHOPAEDIC SURGERY 06/14/21 documented as of this encounter
--- OUTSIDE RECORDS SUMMARY | 2024-10-24 11:53 | XMS_ITS | Encounter Summary ---
Author Organization [facility] Address [facility]6 [facility] [place], [place] [address] [place] [address] Care Team Providers Care Retort Press Operator Name Role Phone Demetrio Shore MD Primary Care Pr ovider Unavailable Joon Lewis Unavailable [phone] Callie Guerrero DO Unavailable [phone] George Osorio MD Unavailable Sergey Ramey Unavailable [phone] Jony Pruitt DPM Unavailable [phone] Gama Graves MD Unavailable [phone] Reason for Visit * Reason Comments Lab (SCAN) Encounter Details Date Type Department Care Team (Latest Contact Info) Description 01/16/2023 Scan HEALTH INFO SRVCS Scanned, Doc Med Group Lab (SCAN) Social History Tobacco Use Types Packs/Day Years [...] st Contact Info) Description 11/02/2024 8:00 AM GLUING MACHINE OPERATOR Office Visit Replaced by [facility] [address] [facility] [place] [address] Ella Hodge [facility] [address] [facility] [place] [address] 01/19/2025 11:00 AM CDT Office Visit [facility] Medical [facility] Specialty Clinic [address] [place] [address] Stanley Jim MD [address] [place] [address] 06/23/2025 8:20 AM CDT Office Visit Replaced by [facility] [address] [facility] [address] Ella Hodge [address] [place] [address] documented as of this encounter Procedures Procedure Name Priority Date/Time Associated Diagnosis Comments OUTSIDE LAB (SCAN ORDER) Routine 01/16/2023 documented in this encounter Results * OUTSIDE LAB (SCAN) (01/16/2023) HGB A1C 5.5 % [facility] ONBASE 01/16/2023 us Doc Med Group Scanned SCANNING Final Resu lt [facility] documented in this encounter Visit Diagnoses Not on filedocumented in this encounter Additional Health Concerns Assessment Noted Time PHQ-9 Depression Total Score: 0 01/25/20 22 8:15 AM CDT documented as of this encounter Care Teams Retort Press Operator Relationship Specialty Start Date End Date Demetrio Shroe MD PCP - General FAMILY PRACTICE 11/11/19 03/29/23 Joon Lewis PA PHYSICIAN ELECTROENCEPHALOGRAPHIC TECHNICIAN 05/09/21 Callie Guerrero DO Clothes Designer OBGYN 06/14/21 [place] [address] [phone] GASTROENTEROLOGY 06/14/21 Sergey Ramey PA [address] [place] [address] [place] [phone] PHYSICIAN ELECTROENCEPHALOGRAPHIC TECHNICIAN 06/14/21 Jony Pruitt DPM [address] [place] [address], [address] [place] [address] Referring Physician PODIATRY/SURGERY 06/14/21 [place] [address] [place], [place] [phone] ORTHOPAEDIC SURGERY 06/14/21 documented as of this encounter
--- OUTSIDE RECORDS SUMMARY | 2024-10-24 11:53 | XMS_ITS | Encounter Summary ---
Author Organization [facility] Address [facility]. [place], [place] [address] [place] [address] Care Team Providers Care Information Technology Instructor Name Role Phone Joon Lewis Unavailable [phone] Callie Guerrero DO Unavailable [phone] George Osorio MD Unavailable Sergey Ramey Unavailable Jony Pruitt DPM Unavailable [phone] Gama Graves MD Unavailable [phone] Ella Hodge [facility] Primary Care Provider [phone] Reason for Visit * Physical Therapy (Routine) - Closed Specialty Diagnoses / Procedures Referred By Chet t Referred To Contact PHYSICAL THERAPY / [facility] Physical Therapy Diagnoses Pain in left knee Procedures Fabio Oshea MD [address] [facility] [address] [place] [address] Phone: tel: fax: Kathleen Hamilton, PT [address] [place] [address] Phone: tel: fax:[phone] Referral ID Status Reason Start Date Expiration Date V isits Requested Visits Authorized [id number] Closed Physical Therapy 08/05/2023 99 99 Encounter Details Date Type Department Care Team (Late st Contact Info) Description 08/11/2023 8:52 AM CDT - 08/11/2023 11:59 PM CDT Hospital Encounter [facility] Therapy [address] [place] [address] Fabio Aguilar MD [address] [place] [address] Daksha Andrews, REGISTRATION SPECIALIST Discharge Disposition: Home or Self Care (Routine [...] as of this encounter Progress Notes * Daksha Andrews, REGISTRATION SPECIALIST - 08/11/2023 9:00 AM CDT Physical Therapy Visit Note: Patient Name: Love Catherine Diagnosis: Pain in left knee (primary encounter diagnosis) SUBJECTIVE Therapy Visit Treatment Day: 3 Total Approved Visits: 01/01 Therapy Plan of Care: therex, manual, ice, vaso, IFC, self-care Current Therapy Orders: Eval and Treat Diagnosis: L knee pain Referring Provider: Fabio Aguilar MD Next MD Visit: 09/17/23 Date of Injury: 3 weeks ago (Late June) Subjective Note: Love reports that she is doing pretty good overall. She reports that when she uses her knee brace her pain is minimal and she can complete all activities well. She rated her pain currently at a 5 Pain Current Location of Pain: L knee/distal adductors Current Pain Level: 5 OBJECTIVE Treatment provided today: Self -Care/Home Management - [id number] Other (Comments): HEP Therapeutic Exercise - 42958 Cardio Equipment: nu-step x 10 minutes level 3 Exercise: seated HS stretch Exercise: SLR 2x 10 Exercise: side lying SLR x 10 Exercise: Hooklying hip abduction x 20 red tband Exercise: LAQ x 20 Exercise: HS curls x 20 Exercise: standing hip ab/ext/march/HR/TR Exercise: QS x 20 5 Manual Therapy - 02477 Intervention: B hamstring stretching Intervention: B ITB stretching Intervention: B hip ADDuctor stretching Intervention: L distal adductor STM Modalities Non-Timed Vasopneumatic Device - 38542: 15 minutes L knee post Electrical Stimulation Unattended - 93507/G0283: 15 minutes L knee/distal adductors post Cold Pack - 14736: 15 minutes L knee post Education Was Education Provided: Yes Topic: HEP Recipient: Patient Method: Demonstration, Verbal, Written, Return Demonstration Response: Demonstrates adequately, Verbalized understanding Barriers: None ASSESSMENT Assessment Note: Love is able to complete all exercises well this date. She was instructed in standing activities and noted an adequate challenge with those. She has noted a tender area on the medial adductor attachment area of the L knee. She completed this session with ice and IFC for comfort as well as a compression pack. No adverse effects observed or noted by the pt. PLAN Plan Next Visit Plan: Progress as tolerated per PT POC documented in this encounter Plan of Treatment Upcoming Encounters Date Type Department Care Team (Late st Contact Info) Description 11/02/2024 8:00 AM COLLISION WORKER Office Visit [address] [place] [address] Ella Hodge FNP [address] [facility] [place] [address] 01/19/2025 11:00 AM CDT Office Visit [facility] [place] [address] [facility] [place] [address] Stanley Jim MD [address] [place] [address] 06/23/2025 8:20 AM CDT Office Visit [address] [place] [address] Ella Hodge FNP [address] [place] [address] documented as of this encounter Visit Diagnoses Diagnosis Pain in left knee- Primary Pain in joint, lower leg documented in this encounter Additional Health Concerns Assessment Noted Time PHQ-9 Depression Total Score: 0 05/09/20 10:49 AM CDT documented as of this encounter Care Teams Information Technology Instructor Relationship Specialty Start Date End Date Ella Hodge FNP [facility] [place] [address] PCP - General NURSE PRACTITIONER 05/09/23 Joon Lewis PA PHYSICIAN FUNDRAISING DIRECTOR 05/09/21 Callie Guerrero DO Negotiator OBGYN 06/14/21 [place] [address] [phone] GASTROENTEROLOGY 06/14/21 Sergey Ramey PA [address] [place] [address] [place] [address] PHYSICIAN FUNDRAISING DIRECTOR 06/14/21 Jony Pruitt DPM [address] [facility], [address] [place] [address] Referring Physician PODIATRY/SURGERY 06/14/21 [place] [address] [place] [address] ORTHOPAEDIC SURGERY 06/14/21 documented as of this encounter
--- OUTSIDE RECORDS SUMMARY | 2024-10-24 11:53 | XMS_ITS | Encounter Summary ---
Author Organization [facility] Address [address] [facility]. [place], [place] [address] [place] [address] Care Team Providers Care School Lunch Manager Name Role Phone Demetrio Shore MD Primary Care Pr ovider Unavailable Joon Lewis Unavailable [phone] Callie Guerrero DO Unavailable [phone] George Osorio MD Unavailable Sergey Ramey Unavailable [phone] Jony Pruitt DPM Unavailable [phone] Gama Graves MD Unavailable [phone] Reason for Visit * Reason Comments Hip Bursitis * Physical Therapy (Routine) - Closed Specialty Diagnoses / Procedures Referred By Chet t Referred To Contact PHYSICAL THERAPY / [facility] Physical Therapy Diagnoses TROCHANTERIC PAIN SYNDROME ANDREA Procedures Gama Dobbins MD [address] [facility] [address] [place] [address] Phone: tel: fax: [place] [address] [place] [address] Phone: tel: fax: Referral ID Status Reason Start Date Expiration Date Visits Re quested Visits Authorized [id number] Closed 09/05/2022 09/06/2023 99 99 Encounter Details Date Type Department Care Team (Latest Contact Info) Description 12/03/2022 9:26 AM AVIATION ELECTRONIC WARFARE OPERATOR - 12/03/2022 11:59 PM AVIATION ELECTRONIC WARFARE OPERATOR Hospital Encounter [facility] Therapy [address] [place] [address] Gama Graves MD [address] [facility] [address] [place] [phone] Callie Flood PTA Hip Bursitis Discharge Disposition: Home or Self Care (Routine [...] Coronavirus/COVID-19? No / Unsure 12/03/2022 9:26 AM AVIATION ELECTRONIC WARFARE OPERATOR documented as of this encounter Medications at [...] BY MOUTH TWICE A DAY 180 tablet 09/06/2022 3 famotidine (PEPCID) 20 MG tabletIndications:Ga stroesophageal reflux [...] TABLET BY MOUTH EVERY DAY 90 tablet 10/04/2022 3 montelukast (SINGULAIR) 10 MG tabletIndications:Ch ronic rhinitis TAKE 1 TABLET BY MOUTH EVERY DAY 90 tablet 1 08/05/2022 3 rosuvastatin (CRESTOR) 20 MG tabletIndications:Mi xed hyperlipidemia TAKE 1 TABLET BY MOUTH EVERYDAY AT BEDTIME 90 tablet 1 05/17/2022 3 rosuvastatin (CRESTOR) 20 MG tabletIndications:Mi xed hyperlipidemia TAKE 1 TABLET BY MOUTH EVERYDAY AT BEDTIME 90 tablet 1 12/04/2022 3 triamcinolone 0.1 % creamIndications:Bug bite, initial encounter Apply topically 3 (three) times daily. 15 g 02/19/2022 4 documented as of this encounter Progress Notes * Callie Flood PTA - 12/03/2022 9:30 AM CST Physical Therapy Visit Note: Patient Name: Love Catherine Diagnosis: Trochanteric bursitis (primary encounter diagnosis) Hip pain Personal Protective Equipment PPE Used During Visit: Therapist wore medical grade mask throughout session, Patient wore mask throughout session SUBJECTIVE Therapy Visit Treatment Day: 15 Total Approved Visits: (eval 09/05/22; RE 11/07/22) Therapy Plan of Care: exer, ADL, manual, modalities Current Therapy Orders: 2x4 Diagnosis: B trochanteric hip bursitis Referring Provider: Dr. Star Ramos MD Visit: NA Work Status: retired Subjective Note: Pt reports feeling ok today. States that overall she feels that she has made good improvements with PT, but she does have some remaining discomfort throughout B hips. She notes that she is cognizant of needing to maintaining her exercise routine while at home to avoid her pain returning. Response to prior treatment: Good Compliance to Home Program: Good Functional changes since last visit: None Reported Falls since last visit: None Medications changes since last visit : None Pain Current Location of Pain: B hips through ITB's, R>L Current Pain Level: 12/06 OBJECTIVE Treatment provided today: Therapeutic Exercise - 33909 Exercise: B piriformis stretch x5 Exercise: Seated HS stretch x5 Exercise: SL clamshells x20 B with red band Exercise: bridge with hip abduction x20 red band Exercise: HL hip abd with red band x20 Exercise: SLR Exercise: Standing side steps with band around knees Exercise: standing hip abd with band 20x B Manual Therapy - 88524 Intervention: HS stretch Intervention: STM/DTM to B greater trochanter and ITB Intervention: piriformis stretch Intervention: quad stretch Modalities Non-Timed Electrical Stimulation Unattended - 84797/G0283: 15' premod to B hips Hot Pack - 72663: 15' post treatment with pre-mod Education Was Education Provided: Yes Topic: HEP review Recipient: Patient Method: Verbal Response: Demonstrates adequately, Verbalized understanding Barriers: None ASSESSMENT Assessment Note: Love demonstrates good effort and recall with all exers with minimal cuing for proper form/technique. She demonstrates continued improvements in B hip mobility and strength. Moderate B HS and piriformis flexibility deficits remain present at this time; decreased adhesions and tension are noted throughout B ITB. MHP and pre-mod applied to B hips post treatment for comfort without adverse effects noted. Encouraged to continue following HEP, progressing resistance as tolerated. Response to Treatment : Good Goal Progression: steady Continue on Functional Deficit of: B hip mobility and strength PLAN Plan Next Visit Plan: Discharge per PT poc TION ELECTRONIC WARFARE OPERATOR documented in this encounter Plan of Treatment Upcoming Encounters Date Type Department Care Team (Late st Contact Info) Description 11/02/2024 8:00 AM AVIATION ELECTRONIC WARFARE OPERATOR Office Visit [address] [place] [address] Ella Hodge [facility] [address] [facility] [place] [address] 01/19/2025 11:00 AM CDT Office Visit [facility] [address] [place] [address] Stanley Jim MD [address] [place] [address] 06/23/2025 8:20 AM CDT Office Visit [address] [place] [address] Ella Hodge [facility] [address] [facility] [place] [address] documented as of this encounter Visit Diagnoses Diagnosis Trochanteric bursitis- Primary Enthesopathy of hip region Hip pain Pain in joint, pelvic region and thigh documented in this encounter Additional Health Concerns Assessment Noted Time PHQ-9 Depression Total Score: 0 01/25/20 22 8:15 AM CDT documented as of this encounter Care Teams School Lunch Manager Relationship Specialty Start Date End Date Demetrio Shore MD PCP - General FAMILY PRACTICE 11/11/19 03/29/23 Joon Lewis PA PHYSICIAN BUSPERSON 05/09/21 Callie Guerrero DO Manager Visual OBGYN 06/14/21 [place] [address] [address] [place] [address] GASTROENTEROLOGY 06/14/21 Sergey aRmey PA [address] [place] [address] PHYSICIAN BUSPERSON 06/14/21 Jony Pruitt DPM [address] [place] [address], [address] [place] [address] Referring Physician PODIATRY/SURGERY 06/14/21 [place] [address] [place] [address] ORTHOPAEDIC SURGERY 06/14/21 documented as of this encounter
--- OUTSIDE RECORDS SUMMARY | 2024-10-24 11:53 | XMS_ITS | Encounter Summary ---
Author Organization [facility] Address [facility] [facility]. [place], [place] [address] [place] [address] Care Team Providers Care Online Merchandising Specialist Name Role Phone Joon Lewis Unavailable [phone] Callie Guerrero DO Unavailable [phone] George Osorio MD Unavailable Sergey Ramey Unavailable [phone] Jony Pruitt DPM Unavailable [phone] Gama Graves MD Unavailable [phone] Ella Hodge DIRECTOR OF IT OPERATIONS Primary Care Provider [phone] Encounter Details Date Type Department Care Team (Latest Contact Info) Description 05/09/2023 Travel Social History Tobacco Use Types Packs/Day [...] st Contact Info) Description 11/02/2024 8:00 AM LOOM SETTER FOURDRINIER Office Visit [address] [place] [address] Ella Hodge FNP [address] [facility] [place] [address] 01/19/2025 11:00 AM CDT Office Visit [facility] Medical Group Pul[facility]ology [facility]ty [facility] - [address] [place] [address] Stanley Jim MD [address] [place] [address] 06/23/2025 8:20 AM CDT Office Visit [address] [place] [address] Ella Hodge FNP [address] [place] [address] [place] [address] documented as of this encounter Visit Diagnoses Not on filedocumented in this encounter Additional Health Concerns Assessment Noted Time PHQ-9 Depression Total Score: 0 05/09/20 23 10:49 AM CDT documented as of this encounter Care Teams Online Merchandising Specialist Relationship Specialty Start Date End Date Ella Hodge FNP [address] [place] [address] [place] [address] PCP - General NURSE PRACTITIONER 05/09/23 Joon Lewis PA PHYSICIAN MAINTENANCE OF WAY SUPERINTENDENT 05/09/21 Callie Guerrero DO Load Manager OBGYN 06/14/21 [place] [address] [address] [place] [address] GASTROENTEROLOGY 06/14/21 Sergey Ramey PA [address] [place] [address] [address] SUPERINTENDENT 06/14/21 Jony Pruitt DPM [address] [place] [address], [address] [place] [address] Referring Physician PODIATRY/SURGERY 06/14/21 [place] [address] [place] [address] ORTHOPAEDIC SURGERY 06/14/21 documented as of this encounter
--- OUTSIDE RECORDS SUMMARY | 2024-10-24 11:53 | XMS_ITS | Encounter Summary ---
Author Organization [facility] Address [facility]. [place], [place] [address] [place] [address] Care Team Providers Care Lawyer Real Estate Name Role Phone Demetrio Shore MD Primary Care Pr ovider Unavailable Joon Lewis Unavailable [phone] Callie Guerrero DO Unavailable [phone] George Osorio MD Unavailable Sergey Ramey Unavailable Jony Pruitt DPM Unavailable [phone] Gama Graves MD Unavailable Reason for Visit * Physical Therapy (Routine) - Closed Specialty Diagnoses / Procedures Referred By Contac t Referred To Contact PHYSICAL THERAPY / [facility] Physical Therapy Diagnoses TROCHANTERIC PAIN SYNDROME ANDREA Procedures Gama Dbobins MD [address] [facility] [address] [place] [address] Phone: tel: fax: [place] [address] [place] [address] Phone: tel: fax: Referral ID Status Reason Start Date Expiration Date Visits Re quested Visits Authorized [id number] Closed 09/05/2022 09/06/2023 99 99 Encounter Details Date Type Department Care Team (Latest Contact Info) Description 11/26/2022 9:[address] RESEARCH ENGINEER - 11/26/2022 11:[address] RESEARCH ENGINEER Hospital Encounter [facility] Therapy [address] [place] [address] Gama Graves MD [address] [facility] [address] [place] [address] Callie Flood PTA Discharge Disposition: Home or Self Care [...] Coronavirus/COVID-19? No / Unsure 11/26/2022 9:[address] RESEARCH ENGINEER documented as of this encounter Medications at [...] TWICE A DAY 180 tablet 09/06/2022 3 hypromellose 0.3 % ophthalmic gel Place [...] AT BEDTIME 90 tablet 1 05/17/2022 3 triamcinolone 0.1 % creamIndications:Bug bite, initial encounter Apply topically 3 (three) times daily. 15 g 02/19/2022 4 documented as of this encounter Progress Notes * Callie Flood, BILINGUAL SALES REPRESENTATIVE - 11/26/2022 10:00 AM CST Physical Therapy Visit Note: Patient Name: Love Catherine Diagnosis: Trochanteric bursitis (primary encounter diagnosis) Hip pain Personal Protective Equipment PPE Used During Visit: Therapist wore medical grade mask throughout session, Patient wore mask throughout session SUBJECTIVE Therapy Visit Treatment Day: 14 Total Approved Visits: (eval 09/05/22; RE 11/07/22) Therapy Plan of Care: exer, ADL, manual, modalities Current Therapy Orders: 2x4 Diagnosis: B trochanteric hip bursitis Referring Provider: Dr. Star Ramos MD Visit: NA Work Status: retired Subjective Note: Pt reports continued improvements overall, but continues to have some discomfort throughout Bhips. Response to prior treatment: Good Compliance to Home Program: Good Functional changes since last visit: None Reported Falls since last visit: None Medications changes since last visit : None Pain Current Location of Pain: B hips through ITB's, R>L Current Pain Level: 2/10 OBJECTIVE Treatment provided today: Therapeutic Exercise - 04995 Exercise: B piriformis stretch x5 Exercise: Seated HS stretch x5 Exercise: SL clamshells x20 B with red band Exercise: bridge with hip abduction x20 red band Exercise: HL hip abd with red band x20 Exercise: SLR Exercise: Standing side steps with band around knees Exercise: standing hip abd with band 20x B Manual Therapy - 41193 Intervention: HS stretch Intervention: STM/DTM to B greater trochanter and ITB Intervention: piriformis stretch Intervention: quad stretch Modalities Non-Timed Electrical Stimulation Unattended - 30357/G0283: 15' premod to B hips Hot Pack - 48872: 15' post treatment with pre-mod Education Was Education Provided: Yes Topic: HEP review Recipient: Patient Method: Verbal Response: Demonstrates adequately, Verbalized understanding Barriers: None ASSESSMENT Assessment Note: Love tolerates session well without adverse effects and without c/o increased pain. She demonstrates overall improvements in core stability and strength as well as improving B LE strength, but deficits do remain present at this time. Moderate tension and adhesions remain present throughoutthe R ITB, very minimal tension noted throughout the L ITB. MHP and pre-mod applied to B hips post treatment for comfort without adverse effects noted. Encouraged to continue following HEP. Response to Treatment : Good Goal Progression: steady Continue on Functional Deficit of: B hip mobility and strength PLAN Plan Next Visit Plan: Cont per current PT poc; progressing per pt tolerance \ WAY RESEARCH ENGINEER documented in this encounter Plan of Treatment Upcoming Encounters Date Type Department Care Team (Late st Contact Info) Description 11/02/2024 8:[address] RESEARCH ENGINEER Office Visit [address] [place] [address] Ella Hodge [address] [place] [address] 01/19/2025 11:00 AM CDT Office Visit [facility] Medical Group [facility] - [place] [address] [facility] [place] [address] Stanley Jim MD [address] [address] 06/23/2025 8:20 AM CDT Office Visit [facility] [address] [place] [address] Ella Hodge [facility] [address] [place] [address] documented as of this encounter Visit Diagnoses Diagnosis Trochanteric bursitis- Primary Enthesopathy of hip region Hip pain Pain in joint, pelvic region and thigh documented in this encounter Additional Health Concerns Assessment Noted Time PHQ-9 Depression Total Score: 0 01/25/20 8:15 AM CDT documented as of this encounter Care Teams Lawyer Real Estate Relationship Specialty Start Date End Date Demetrio Shore MD PCP - General FAMILY PRACTICE 11/11/19 03/29/23 Joon Lewis PA PHYSICIAN POOL SERVICER 05/09/21 Callie Guerrero DO Sandwich Peddler OBGYN 06/14/21 [place] [address] [phone] GASTROENTEROLOGY 06/14/21 Sergey Ramey PA [address] [place] [address] [place] [address] PHYSICIAN POOL SERVICER 06/14/21 Jony Pruitt, DPM [address] [place] [address], [address] [place] [address] Referring Physician PODIATRY/SURGERY 06/14/21 [place] [address] [place] [address] ORTHOPAEDIC SURGERY 06/14/21 documented as of this encounter
--- OUTSIDE RECORDS SUMMARY | 2024-10-24 11:53 | XMS_ITS | Encounter Summary ---
Author Organization [facility] Address [facility]. [place], [place] [address] [place] [address] Care Team Providers Care Quill Winder Name Role Phone Joon Lewis Unavailable [phone] Callie Guerrero DO Unavailable [phone] George Osorio MD Unavailable Sergey Ramey Unavailable [phone] Jony Pruitt DPM Unavailable [phone] Gama Graves MD Unavailable [phone] Ella Hodge ENVIRONMENTAL HEALTH PHYSICIAN Primary Care Provider [phone] Encounter Details Date Type Department Care Team (Latest Contact Info) Description 08/04/2023 Scan HEALTH INFO SRVCS Scanned, Doc Med [...] st Contact Info) Description 11/02/2024 8:00 AM PROJECT ENGINEERING MANAGER Office Visit [address] [place] [address] Ella Hodge FNP [address] [facility] [place] [address] 01/19/2025 11:00 AM CDT Office Visit [facility] Medical [facility] Pul[facility]ology [facility]ty [facility] - [address] [place] [address] Stanley Jim MD [address] [place] [address] 06/23/2025 8:20 AM CDT Office Visit [address] [place] [address] Ella Hodge FNP [address] [place] [address] [place] [address] documented as of this encounter Visit Diagnoses Not on filedocumented in this encounter Additional Health Concerns Assessment Noted Time PHQ-9 Depression Total Score: 0 05/09/20 10:49 AM CDT documented as of this encounter Care Teams Quill Winder Relationship Specialty Start Date End Date Ella Hodge FNP [address] [place] [address] [place] [address] PCP - General NURSE PRACTITIONER 05/09/23 Joon Lewis PA PHYSICIAN WASHCOAT WIPER 05/09/21 Callie Guerrero DO Out Patient Therapist OBGYN 06/14/21 [place] [address] [facility] [address] [place] [address] GASTROENTEROLOGY 06/14/21 Sergey Ramey PA [address] [place] [address] PHYSICIAN WASHCOAT WIPER 06/14/21 Jony Pruitt DPM [address] [place] [address], [address] [place] [address] Referring Physician PODIATRY/SURGERY 06/14/21 [place] [address] [place] [address] ORTHOPAEDIC SURGERY 06/14/21 documented as of this encounter
--- OUTSIDE RECORDS SUMMARY | 2024-10-24 11:53 | XMS_ITS | Encounter Summary ---
Author Organization [facility] Address Critical access hospital6 [facility]. [place], [place] [address] [place] [address] Care Team Providers Care Leather Scraper Name Role Phone Joon Lewis Unavailable [phone] Callie Guerrero DO Unavailable [phone] George Osorio MD Unavailable Sergey Ramey Unavailable [phone] Jony Pruitt DPM Unavailable Gama Graves MD Unavailable [phone] Ella Hodge [facility] Primary Care Provider [phone] Reason for Visit * Reason Comments Knee Pain * Physical Therapy (Routine) - Closed Specialty Diagnoses / Procedures Referred By Contac t Referred To Contact PHYSICAL THERAPY / [facility] Physical Therapy Diagnoses Pain in left knee Procedures Fabio Oshea MD [address] [facility] [address] [place] [address] Phone: tel: fax: Kathleen Hamilton, PT [address] [place] [address] Phone: tel: fax: Referral ID Status Reason Start Date Expiration Date V isits Requested Visits Authorized [id number] Closed Physical Therapy 08/05/2023 99 99 Encounter Details Date Type Department Care Team (Late st Contact Info) Description 08/05/2023 2:00 PM CDT - 08/05/2023 11:59 PM CDT Hospital Encounter [facility] Therapy [address] [place] [address] Fabio Aguilar MD [address] [place] [address] Nikolas Montanez D, PT [address] [facility] [place] [address] Knee Pain Discharge Disposition: Home or Self [...] encounter Progress Notes * DICK Ventura - 08/05/2023 2:00 PM CDTEncounter addended by: DICK Ventura on: 09/11/2023 2:14 PM Actions taken: Letter saved, Clinical Note Signed GN VERIFICATION ENGINEER * DICK Ventura - 08/05/2023 2:00 PM CDT Initial Lower Extremity Evaluation Visit Diagnosis: Pain in L knee Referring Physician: Fabio Aguilar MD Certification Period: 08/05/23 - 09/05/23 Current Therapy Orders: Eval and Treat Next MD Visit: 09/17/25 Date of Injury/Onset: about 3 weeks ago SUBJECTIVE History of Present Condition: Love says she has been having L knee pain for a few weeks and she has no idea what she did. She has a knee brace that she has been wearing most of the time. She says it feels better than when the pain first started, but it continues to bother her. She also notes shehas been to physical therapy before for B hip bursitis, and it is affecting her on both sides. She s ays she knows her altered gait pattern is [...] with less pain PAIN Current Pain Level: 2/10 Lowest Pain Level: 1/10 Highest Pain Level: 5/10 Activities that Increase Pain: prolonged standing, walking Activities that Decrease Pain: wearing knee brace; sitting Location and Description of Pain: along medial aspect of L knee and distal adductors; achy pain REVIEW WITH PATIENT Medication Reviewed: Yes Diagnostics: x-ray Co-Morbidities: HBP Patient Stated goals for Therapy No knee pain OBJECTIVE Gait: pt ambulates with decreased rell PALPATION: Pain: pt reports tenderness with palpation of posterior knee and distal adductor muscles KNEE: ACTIVE ROM Knee AROM R Eval Date: 08/05/23 R Re-Eval Date: L Eval: 08/05/23 L Re-eval: Knee extension 0 deg 0 deg Knee flexion 134 deg 134 deg *pt experienced hamstring cramping during knee flexion on both L and R Strength: ANKLE STRENGTH L R Dorsiflexion 5/5 5/5 Plantarflexion 5/5 5/5 HIP STRENGTH L R Hip flexion 5/5 5/5 Hip abduction 5/5 5/5 Hip adduction 5/5 5/5 KNEE STRENGTH L R Knee flexion 5/5 5/5 Knee extension 4+/5 pain 5/5 Flexibility: Significant hamstring tightness bilaterally, worse on L than R; pt reports pain during L HS stretching Moderate hip adductor tightness bilaterally Moderate B ITB tightness Functional Scales: LEFS: 55/80 Special Tests: Reji's (-) on L Valgus stress test (-) on L ASSESSMENT Love Catherine presents with signs and symptoms consistent with L knee pain. Problem list to be addressed: -Pain of L knee -Decreased L LE strength. -Decreased LE flexibility. -Poor posture and body mechanics. -Decreased Physical Performance and activity tolerance. -Limited functional activities of standing, walking, kneeling. Prognosis: Patient is a good candidate for physical therapy. Good prognosis to achieve goals. EVALUATION SUMMARY: Love reports she began experiencing L knee pain a few weeks ago and she has no idea what she did. She says she has been wearing a knee brace and her knee has been improving, but she still doesn't feel right. She reports increased pain with prolonged standing and stair negotiation. She has been taking Meloxicam for less than a week and has not seen any improvement in symptoms yet. She has been to therapy in the past for B hip bursitis and says her pain has returned and sheknows her altered gait pattern isn't helping. Her LEFS score of 55/80 indicates a moderate level ofself-perceived disability related to her L knee. Objectively, she presents with B knee AROM WNL. She exhibits 5/5 B LE strength with the exception of L knee extension, which is 4+/5. She reports increased pain with resisted knee extension. Reji's test and valgus stress test (-) on the L. She presents with significant B hamstring tightness, with the L worse than the R. She also reports pain during L hamstring stretching. Moderate B iliotibial band and hip adductor tightness evident. She would benefit from skilled PT 2x/week for 4 weeks to address the deficits listed above. PLAN Planned frequency and duration of treatment is 2/week x 4 weeks to achieve the above stated goals which were discussed with the patient. Treatment will include the following: Self -Care/Home Management - 05523, Neuromuscular Re-education - 28019, Gait Training - 67028, Therapeutic Exercise - 86109, Electrical Stimulation Unattended - 78754, Vasopneumatic Device - 64930, Manual Therapy - 62804, and Hot/Cold Pack - 57122 GOALS Improved neuromuscular, balance, proprioceptive awareness for stability & reduction of risk forfuture injury Timeframe: By DC 2. Patient to achieve L Knee/Hip/Ankle Strength: 5/5 MMT Timeframe:By DC 3. Patient to demonstrate normal active mobility without guarded movement patterns Timeframe: By DC 4. Patient to demonstrate normal gait pattern and report no limitation with walking during ADLs Timeframe: By DC 5. Patient to correctly demonstrate home exercises to be performed in conjunction with therapy program Timeframe: 2 weeks 6. Patient to decrease pain complaints with ADLs to <3/10 Timeframe: By DC 7. Patient will report significant functional improvement with ADLs Timeframe: By DC 8. Return to previous functional status for ADLs, recreational activities, or sports activities as identified by patient Timeframe: By DC 9. Patient to report self perceived improvements evidenced by functional outcome score of LEFS >60/80 Timeframe: By DC Therapist: NIKOLAS MONTANEZ PT Date: 08/05/23 Time: 2:13 PM Physician certification: I certify that the above physical therapy services are required, authorized, and reviewed. Provider Signature: Date: Time: Fabio Aguilar MD Patient Name: Love Catherine : 1945 GN VERIFICATION ENGINEER * Nikolas Montanez, PT - 08/05/2023 2:00 PM CDT Physical Therapy Visit Note: Patient Name: Love Catherine Diagnosis: Pain in left knee (primary encounter diagnosis) SUBJECTIVE Therapy Visit Total Approved Visits: 11/03 Therapy Plan of Care: therex, manual, ice, vaso, IFC, self-care Current Therapy Orders: Eval and Treat Diagnosis: L knee pain Referring Provider: Fabio Aguilar MD Next MD Visit: 09/17/23 Date of Injury: 3 weeks ago (Late June) Subjective Note: See eval Pain Current Location of Pain: L knee/distal adductors Current Pain Level: 2/10 OBJECTIVE Treatment provided today: Self -Care/Home Management - 49895 Number of Minutes - 28546: 15 Other (Comments): HEP Therapeutic Exercise - 20292 Number of Minutes - 85335: 15 Exercise: seated HS stretch Exercise: SLR x 10 Exercise: side lying SLR x 10 Exercise: Hooklying hip abduction x 20 red tband Manual Therapy - 46490 Number of Minutes - 39254: 15 Intervention: B hamstring stretching Intervention: B ITB stretching Intervention: B hip ADDuctor stretching Modalities Non-Timed Vasopneumatic Device - 10746: 15 minutes L knee post Electrical Stimulation Unattended - 53026/G0283: 15 minutes L knee post Cold Pack - 03394: 15 minutes L knee post Education Was Education Provided: Yes Topic: HEP Recipient: Patient Method: Demonstration, Verbal, Written, Return Demonstration Response: Demonstrates adequately, Verbalized understanding Barriers: None ASSESSMENT Assessment Note: Session finished with ice, vasocompression, and IFC applied L knee in sitting for comfort. Noadvers effects noted. See eval PLAN Plan Next Visit Plan: Progress as tolerated per PT POC Total Time Total Time in Minutes: 45 Timed Code Treatment Minutes : 45 documented in this encounter Plan of Treatment Upcoming Encounters Date Type Department Care Team (Late st Contact Info) Description 11/02/2024 8:00 AM DESIGN VERIFICATION ENGINEER Office Visit [address] [place] [address] Ella Hodge FNP [address] [place] [address] [place] [address] 01/19/2025 11:00 AM CDT Office Visit [facility] - [address] [place] [address] Stanley Jim MD [address] [place] [address] 06/23/2025 8:20 AM CDT Office Visit [address] [place] [address] Ella Hodge FNP [address] [facility] [place] [address] documented as of this encounter Visit Diagnoses Diagnosis Pain in left knee- Primary Pain in joint, lower leg documented in this encounter Additional Health Concerns Assessment Noted Time PHQ-9 Depression Total Score: 0 05/09/20 10:49 AM CDT documented as of this encounter Care Teams Leather Scraper Relationship Specialty Start Date End Date Ella Hodge FNP [address] [place] [address] PCP - General NURSE PRACTITIONER 05/09/23 Joon Lewis PA PHYSICIAN CLASSIFICATION INSPECTOR 05/09/21 Callie Guerrero DO Seed Corn Production Manager OBGYN 06/14/21 [place] [address] [phone] GASTROENTEROLOGY 06/14/21 Sergey Ramey PA [address] [facility] [address] PHYSICIAN CLASSIFICATION INSPECTOR 06/14/21 Jony Pruitt DPM [address] [place] [address], [address] [place] [address] Referring Physician PODIATRY/SURGERY 06/14/21 [place] [address] [place] [address] ORTHOPAEDIC SURGERY 06/14/21 documented as of this encounter
--- OUTSIDE RECORDS SUMMARY | 2024-10-24 11:53 | XMS_ITS | Encounter Summary ---
Author Organization [facility] Address [facility]6 [facility]. [place], [place] [address] [place] [address] Care Team Providers Care Cracker Sprayer Name Role Phone Joon Lewis Unavailable [phone] Callie Guerrero DO Unavailable George Osorio MD Unavailable Sergey Ramey Unavailable [phone] Jony Pruitt DPM Unavailable [phone] Gama Graves MD Unavailable [phone] Ella Hodge STORAGE WHARFAGE CLERK Primary Care Provider [phone] Encounter Details Date Type Department Care Team (Latest Contact Info) Description 08/05/2023 Travel Social History Tobacco Use Types Packs/Day [...] st Contact Info) Description 11/02/2024 8:00 AM PETROPHYSICIST Office Visit [address] [place] [address] Ella Hodge FNP 201 [facility] [place] [address] 01/19/2025 11:00 AM CDT Office Visit [facility] Pul[facility]ty [facility] - [address] [place] [address] Stanley Jim MD [address] [place] [address] 06/23/2025 8:20 AM CDT Office Visit [address] [place] [address] Ella Hodge FNP [address] [place] [address] [place] [address] documented as of this encounter Visit Diagnoses Not on filedocumented in this encounter Additional Health Concerns Assessment Noted Time PHQ-9 Depression Total Score: 0 05/09/20 23 10:49 AM CDT documented as of this encounter Care Teams Cracker Sprayer Relationship Specialty Start Date End Date Ella Hodge FNP [address] [place] [address] [place] [address] PCP - General NURSE PRACTITIONER 05/09/23 Joon Lewis PA PHYSICIAN AUTO TECHNICIAN MECHANIC 05/09/21 Callie Guerrero DO Transportation Engineering Technician OBGYN 06/14/21 [place] [address] [address] [place] [address] GASTROENTEROLOGY 06/14/21 Sergey Ramey PA [address] [place] [address] PHYSICIAN AUTO TECHNICIAN MECHANIC 06/14/21 Jony Pruitt DPM [address] [place] [address], [address] [place] [address] Referring Physician PODIATRY/SURGERY 06/14/21 [place] [address] [place] [address] ORTHOPAEDIC SURGERY 06/14/21 documented as of this encounter
--- OUTSIDE RECORDS SUMMARY | 2024-10-24 11:53 | XMS_ITS | Encounter Summary ---
Author Organization [facility] Address [facility]6 [facility]. [place], [place] [address] [place] [address] Care Team Providers Care Automotive Parts Salesperson Name Role Phone Joon Lewis Unavailable [phone] Callie Guerrero DO Unavailable [phone] George Osorio MD Unavailable Sergey Ramey Unavailable Jony Pruitt DPArthur Unavailable Gama Graves MD Unavailable [phone] Ella HodgeP Primary Care Provider [phone] Encounter Details Date Type Department Care Team (Late st Contact Info) Description 05/28/2023 8:29 AM CDT - 05/28/2023 11:59 PM CDT Hospital Encounter [facility] [address] [place] [id number] Ella Hodge FNP [address] [place] [address] Discharge Disposition: Home or Self Care [...] 02/19/2022 4 documented as of this encounter Plan of Treatment Upcoming Encounters Date Type Department Care Team (Late st Contact Info) Description 11/02/2024 8:00 AM STEAM POWERPLANT SUPERVISOR Office Visit [address] [place] [address] Ella Hodge [facility] 201 [facility] [place] [address] 01/19/2025 11:00 AM CDT Office Visit [facility] [address] [place] [address] Stanley Jim MD [address] [place] [address] 06/23/2025 8:20 AM CDT Office Visit [address] [place] [address] Ella Hodge [address] [place] [address] documented as of this encounter Procedures Procedure Name Priority Date/Time Associated Diagnosis Comments THYROXINE, FREE (FT4) Routine 05/28/2023 8:35 AM CDT Cold intolerance THYROID STIM HORMONE TSH Routine 05/28/2023 8:35 AM CDT Cold intolerance documented in this encounter Results * (ABNORMAL) THYROXINE, FREE (FT4) (05/28/2023 8:35 AM CDT) FREE T4 0.72(L) 0.76 - 1.46 NG/DL 05/28/2023 9:45 AM CDT [facility] Comment: HIGH DOSES OF BIOTIN MAY INTERFERE WITH THIS TEST RESULT. CORRELATION TO CLINICAL HISTORY AND PRESENTATION RECOMMENDED. 05/28/2023 8:35 AM CDT Ella Hodge INSURANCE INVESTIGATOR LABORATORY Final Res ult Performing Organization Address [facility] Co de Phone Number [facility] [address] [facility] [place] [address], * THYROID STIM HORMONE, TSH (05/28/2023 8:35 AM CDT) TSH 1.688 0.358 - 3.740 uIU/ML 05/28/2023 9:45 AM CDT [facility] Comment: HIGH DOSES OF BIOTIN MAY INTERFERE WITH THIS TEST RESULT. CORRELATION TO CLINICAL HISTORY AND PRESENTATION RECOMMENDED. 05/28/2023 8:35 AM CDT Ella Hodge [facility] Final Res ult Performing Organization Address [facility] de Phone Number [facility] [address] [facility] [place] [address], documented in this encounter Visit Diagnoses Diagnosis Cold intolerance Other general symptoms documented in this encounter Additional Health Concerns Assessment Noted Time PHQ-9 Depression Total Score: 0 05/09/20 23 10:49 AM CDT documented as of this encounter Care Teams Automotive Parts Salesperson Relationship Specialty Start Date End Date Ella Hodge FNP 201 [facility] [place] [address] PCP - General NURSE PRACTITIONER 05/09/23 Joon Lewis PA PHYSICIAN RETAIL POS SPECIALIST 05/09/21 Callie Guerrero DO Tape Cutting Machine Operator OBGYN 06/14/21 [place] [address] [address] [place] [address] GASTROENTEROLOGY 06/14/21 Sergey Ramey PA [address] [place] [address] PHYSICIAN RETAIL POS SPECIALIST 06/14/21 Jony Pruitt DPM [address] [place] [address], [address] [place] [address] Referring Physician PODIATRY/SURGERY 06/14/21 [place] [address] [place] [address] ORTHOPAEDIC SURGERY 06/14/21 documented as of this encounter
--- OUTSIDE RECORDS SUMMARY | 2024-10-24 11:53 | XMS_ITS | Encounter Summary ---
Author Organization [facility] Address [facility]6 [facility]. [place], [place] [address] [place] [address] Care Team Providers Care Cream Dumper Name Role Phone Joon Lewis Unavailable [phone] Callie Guerrero DO Unavailable [phone] George Osoiro MD Unavailable Sergey Ramey Unavailable [phone] Jony Pruitt DPM Unavailable [phone] Gama Graves MD Unavailable [phone] Ella Goodwin Primary Care Provider [phone] Reason for Referral * Imaging (Routine) - Closed Specialty Diagnoses / Procedures Referred By Chet nicholson Referred To Contact RADIOLOGY Diagnoses Encounter for screening mammogram for malignant neoplasm of breast Procedures MG SCREENING W Ella Rodriguez FNP [address] [place] [address] [place] [address] Phone: tel: fax: Referral ID Status Reason Start Date Expiration Date Visits Re quested Visits Authorized [id number] Closed 05/28/2023 07/28/2024 1 1 Reason for Visit * Imaging (Routine) - Closed Specialty Diagnoses / Procedures Referred By Chet t Referred To Contact RADIOLOGY Diagnoses Encounter for screening mammogram for malignant neoplasm of breast Procedures MG SCREENING W NEVA ANDREA DIGI Ella Goodwin FNP [address] [place] [address] Phone: tel: fax: Referral ID Status Reason Start Date Expiration Date Visits Re quested Visits Authorized [id number] Closed 05/28/2023 07/28/2024 1 1 Encounter Details Date Type Department Care Team (Late st Contact Info) Description 06/09/2023 2:00 PM CDT - 06/09/2023 11:59 PM CDT Hospital Encounter [facility] Mammography [address] [place] [address] Ella Goodwin FNP [address] [facility] [place] [address] Discharge Disposition: Home or Self Care (Routine [...] st Contact Info) Description 11/02/2024 8:00 AM EMT PARAMEDIC Office Visit [facility] [address] [place] [address] Ella Goodwin FNP [address] [place] [address] 01/19/2025 11:00 AM CDT Office Visit [facility] Pul[facility]ty [facility] - [address] [place] [address] Stanley Jim MD [address] [address] 06/23/2025 8:20 AM CDT Office Visit [facility] [address] [facility] [place] [address] Ella Goodwin, [facility] [address] [place] [address] documented as of this encounter Procedures Procedure Name Priority Date/Time Associated Diagnosis Comments MG SCREENING W NEVA ANDREA DIGI Routine 06/09/2023 2:20 PM CDT Encounter for screening mammogram for malignant neoplasm of breast documented in this encounter Results * MG SCREENING W NEVA ANDREA DIGI (06/09/2023 2:20 PM CDT) Anatomical Region Laterality Modality Breast Bilateral Computed Tomogra phy, Other 06/09/2023 2:29 PM CDT Narrative 06/09/2023 2:31 PM CDT Examination: Digital bilateral screening mammogram with 3D Tomosynthesis Exam Date/Time: 06/09/2023 2:01 PM Reason For Exam: ??screening ? Benign left biopsy 2005. No additional prior breast procedures. No personal or family history of breast cancer. No current complaints. Comparison: Mammograms from 06/06/2022 05/10/2021 03/30/2020 Technique: Digital screening mammography of both breasts was performed in addition to 3-D Tomosynthesis technique. This study was read with the assistance of a computer-aided detection system. Tissue density: The breast tissue is heterogeneously dense, which may obscure small masses. Findings: Benign rounded calcifications bilaterally. Overall parenchymal pattern unchanged from prior studies. There is no new focal asymmetry, dominant mass lesion, area of skin thickening, or cluster of suspicious appearing calcifications in either breast to suggest malignancy. ===== IMPRESSION: ===== 1. ??Stable mammographic appearance with no new findings to suggest malignancy in either breast. Assessment: ACR BI-RADS 2 - BENIGN FINDING(S) Recommendation: 1:Routine Screening Bilateral Comments: Ordered By: ELLA GOODWIN Interpreted By: Willis Westfall MD, 06/09/2023 2:29 PM Ella Goodwin CUSTOMER CONSULTING MANAGER MAMMO Final Res ult documented in this encounter Visit Diagnoses Diagnosis Encounter for screening mammogram for malignant neoplasm of breast Other screening mammogram documented in this encounter Additional Health Concerns Assessment Noted Time PHQ-9 Depression Total Score: 0 05/09/20 10:49 AM CDT documented as of this encounter Care Teams Cream Dumper Relationship Specialty Start Date End Date Ella Goodwin FNP [address] [place] [address] [place] [address] PCP - General NURSE PRACTITIONER 05/09/23 Joon Lewis PA PHYSICIAN ACCOUNT DEVELOPMENT ASSOCIATE 05/09/21 Callie Guerrero DO Mixed Livestock Farmer OBGYN 06/14/21 [place] [address] [phone] GASTROENTEROLOGY 06/14/21 Sergey Ramey PA [address] [place] [address] [place] [address] PHYSICIAN ACCOUNT DEVELOPMENT ASSOCIATE 06/14/21 Jony Pruitt DPM [facility], [address] [place] [address] Referring Physician PODIATRY/SURGERY 06/14/21 [place] [address] [place] [address] ORTHOPAEDIC SURGERY 06/14/21 documented as of this encounter
--- OUTSIDE RECORDS SUMMARY | 2024-10-24 11:53 | XMS_ITS | Encounter Summary ---
Author Organization [facility] Address Formerly [facility]6 [facility]. [place], [place] [address] [place] [address] Care Team Providers Care Manometer Technician Name Role Phone Joon Lewis Unavailable [phone] Callie Guerrero DO Unavailable [phone] George Osorio MD Unavailable Sergey Ramey Unavailable [phone] Jony Pruitt DPM Unavailable [phone] Gama Graves MD Unavailable [phone] Ella Hodge TRANSISTOR TESTER Primary Care Provider [phone] Encounter Details Date Type Department Care Team (Latest Contact Info) Description 08/07/2023 Travel Social History Tobacco Use Types Packs/Day [...] st Contact Info) Description 11/02/2024 8:00 AM PEST CONTROL SERVICE SALES AGENT Office Visit [address] [place] [address] Ella Hodge FNP 201 [facility] [place] [address] 01/19/2025 11:00 AM CDT Office Visit [facility] - [address] [place] [address] Stanley Jim MD [address] [place] [address] 06/23/2025 8:20 AM CDT Office Visit [address] [place] [address] Ella Hodge FNP [address] [place] [address] [place] [address] documented as of this encounter Visit Diagnoses Not on filedocumented in this encounter Additional Health Concerns Assessment Noted Time PHQ-9 Depression Total Score: 0 05/09/20 23 10:49 AM CDT documented as of this encounter Care Teams Manometer Technician Relationship Specialty Start Date End Date Ella Hodge FNP [address] [place] [address] [place] [address] PCP - General NURSE PRACTITIONER 05/09/23 Joon Lewis PA PHYSICIAN LANDSCAPE NURSERYMAN 05/09/21 Callie Guerrero DO Supervisor Typesetting OBGYN 06/14/21 [place] [address] [address] [place] [address] GASTROENTEROLOGY 06/14/21 Sergey Ramey PA [address] [place] [address] PHYSICIAN LANDSCAPE NURSERYMAN 06/14/21 Jony Pruitt DPM [address] [place] [address], [address] [place] [address] Referring Physician PODIATRY/SURGERY 06/14/21 [place] [address] [place] [address] ORTHOPAEDIC SURGERY 06/14/21 documented as of this encounter
--- OUTSIDE RECORDS SUMMARY | 2024-10-24 11:53 | XMS_ITS | Encounter Summary ---
Author Organization [facility] Address [facility]6 [facility]. [place], [place] [address] [place] [address] Care Team Providers Care Trucking Contractor Name Role Phone Joon Lewis Unavailable [phone] Callie Guerrero DO Unavailable [phone] George Osorio MD Unavailable Sergey Ramey Unavailable [phone] Jony Pruitt DPM Unavailable [phone] Gama Graves MD Unavailable [phone] Ella Hodge FLIGHT SOFTWARE TEST ENGINEER Primary Care Provider [phone] Encounter Details Date Type Department Care Team (Latest Contact Info) Description 06/09/2023 Travel Social History Tobacco Use Types Packs/Day [...] st Contact Info) Description 11/02/2024 8:00 AM ROD PULLER AND COILER Office Visit [address] [place] [place] [address] Ella Hodge FNP 201 [facility] [place] [address] 01/19/2025 11:00 AM CDT Office Visit [facility] Pul[facility] Specialty Clinic - [address] [place] [address] Stanley Jim MD [address] [place] [address] 06/23/2025 8:20 AM CDT Office Visit [address] [place] [address] Ella Hodge FNP [address] [place] [address] [place] [address] documented as of this encounter Visit Diagnoses Not on filedocumented in this encounter Additional Health Concerns Assessment Noted Time PHQ-9 Depression Total Score: 0 05/09/20 23 10:49 AM CDT documented as of this encounter Care Teams Trucking Contractor Relationship Specialty Start Date End Date Ella Hodge FNP [address] [place] [address] [place] [address] PCP - General NURSE PRACTITIONER 05/09/23 Joon Lewis PA PHYSICIAN GROUP LEADER 05/09/21 Callie Guerrero DO Industrial Hygiene Technician OBGYN 06/14/21 [place] [address] [address] [place] [address] GASTROENTEROLOGY 06/14/21 Sergey Ramey PA [address] [place] [address] PHYSICIAN GROUP LEADER 06/14/21 Jony Pruitt DPM [address] [place] [address], [address] [place] [address] Referring Physician PODIATRY/SURGERY 06/14/21 [place] [address] [place] [address] ORTHOPAEDIC SURGERY 06/14/21 documented as of this encounter
--- OUTSIDE RECORDS SUMMARY | 2024-10-24 11:53 | XMS_ITS | Encounter Summary ---
Author Organization [facility] Address Formerly [facility]6 [facility]. [place], [place] [address] [place] [address] Care Team Providers Care Bird Tender Name Role Phone Joon Lewis Unavailable [phone] Callie Guerrero DO Unavailable [phone] George Osorio MD Unavailable Sergey Ramey Unavailable [phone] Jony Pruitt DPM Unavailable [phone] Gama Graves MD Unavailable [phone] Ella Hodge SEPTIC TANK SERVICE TECHNICIAN Primary Care Provider [phone] Encounter Details Date Type Department Care Team (Latest Contact Info) Description 05/28/2023 Travel Social History Tobacco Use Types Packs/Day [...] st Contact Info) Description 11/02/2024 8:00 AM TECHNICAL DOCUMENT WRITER Office Visit [address] [place] [address] Ella Hodge FNP 201 [facility] [place] [address] 01/19/2025 11:00 AM CDT Office Visit [facility] Pul[facility]ology Specialty Clinic - [address] [place] [address] Stanley Jim MD [address] [place] [address] 06/23/2025 8:20 AM CDT Office Visit [address] [place] [address] Ella Hodge FNP [address] [place] [address] [place] [address] documented as of this encounter Visit Diagnoses Not on filedocumented in this encounter Additional Health Concerns Assessment Noted Time PHQ-9 Depression Total Score: 0 05/09/20 23 10:49 AM CDT documented as of this encounter Care Teams Bird Tender Relationship Specialty Start Date End Date Ella Hodge FNP [address] [place] [address] [place] [address] PCP - General NURSE PRACTITIONER 05/09/23 Joon Lewis PA PHYSICIAN SCHOOL CUSTODIAN 05/09/21 Callie Guerrero DO Vacuum Repairer OBGYN 06/14/21 [place] [address] [address] [place] [address] GASTROENTEROLOGY 06/14/21 Sergey Ramey PA [address] [place] [address] PHYSICIAN SCHOOL CUSTODIAN 06/14/21 Jony Pruitt DPM [address] [place] [address], [address] [place] [address] Referring Physician PODIATRY/SURGERY 06/14/21 [place] [address] [place] [address] ORTHOPAEDIC SURGERY 06/14/21 documented as of this encounter
--- OUTSIDE RECORDS SUMMARY | 2024-10-24 11:53 | XMS_ITS | Encounter Summary ---
Author Organization [facility] Address [address] [facility]. [place], [place] [address] [place] [address] Care Team Providers Care Strip Presser Name Role Phone Demetrio Shore MD Primary Care Pr ovider Unavailable Joon Lewis Unavailable [phone] Callie Guerrero DO Unavailable [phone] George Osorio MD Unavailable Sergey Ramey Unavailable [phone] Jony Pruitt DPM Unavailable [phone] Gama Graves MD Unavailable [phone] Reason for Visit * Reason Comments Sore Throat X 2 days with mild c ough, sx improving now. dx'd with strep.Friday Rash Shoulder, back, thig hs, arms; x 1 week; itching Encounter Details Date Type Department Care Team (Late st Contact Info) Description 12/13/2022 9:00 AM BEEF CATTLE FARMER Office Visit [facility] Medical [facility] Multispecialty Care - [address] [place] [address] Demetrio Shore MD Sore Throat (X 2 days with mild cough, sx improving now. dx'd with strep.Friday); Rash (Shoulder, back, thighs, arms; x 1 week; itching) Social History Tobacco Use Types Packs/Day Years [...] Coronavirus/COVID-19? No / Unsure 12/13/2022 8:49 AM BEEF CATTLE FARMER documented as of this encounter Last Filed Vital Signs Vital Sign Reading Time Taken Comments Blood Pressure 130/78 12/13/2022 9:32 AM BEEF CATTLE FARMER Pulse 71 12/13/2022 9:32 AM BEEF CATTLE FARMER Temperature 36.3 ??C (97.3 ??F) 12/13/2022 9:32 AM CS T Respiratory Rate 16 12/13/2022 9:32 AM BEEF CATTLE FARMER Oxygen Saturation 98% 12/13/2022 9:32 AM BEEF CATTLE FARMER Inhaled Oxygen Concentration - - Weight 65.8 kg (145 lb) 12/13/2022 9:32 AM BEEF CATTLE FARMER Height 152.4 cm (5') 12/13/2022 9:32 AM BEEF CATTLE FARMER Body Mass Index 28.32 12/13/2022 9:32 AM BEEF CATTLE FARMER documented in this encounter Patient Instructions * Patient Instructions* Dmeetrio Shore MD - 12/13/2022 9:00 AM BEEF CATTLE FARMER I have sent amoxicillin to your pharmacy. Please take 1 tablet twice a day for 10 days. Complete the entire course of treatment even if you are feeling better. I will see you in March for follow-up CATTLE FARMER CATTLE FARMER documented in this encounter Progress Notes * Demetrio Shore MD - 12/13/2022 9:00 AM CST Love Catherine is a 77-year-old female who presents today alone for evaluation of Chief Complaint Patient presents with ??? Sore Throat X 2 days with mild cough, sx improving now. dx'd with strep.Friday ??? Rash Shoulder, back, thighs, arms; x 1 week; itching History of Present Illness: Patient is here today due to a sore throat and a rash -She states that her tested positive for COVID at the doctor's office recently and he was put on amoxicillin for 10 days -She developed a sore throat about 2 days ago and had a mild cough but states that her symptoms arestarting to improve -After her sore throat she also developed at this rough lacy rash on her shoulders, back, thighs, arms; states that it is a bit itchy as well -No reports of fevers or chills -No body aches Past Medical History: Diagnosis Date ??? Allergic rhinitis ??? Heartburn ??? Hip pain ??? Hypertension Past Surgical History: Procedure Laterality Date ??? BREAST BIOPSY ??? COLONOSCOPY ??? FOOT SURGERY Left 03/14/2021 dr jony pruitt ??? THROAT SURGERY PROCEDURE UNLISTED ??? TOTAL HIP ARTHROPLASTY Right 11/17/2019 Family History Problem Relation Name Age of Onset ??? Other (TIA) Mother ??? Colon Cancer Brother ??? Migraines Daughter Social History Tobacco Use ??? Smoking status: Never ??? Smokeless tobacco: Never Vaping Use ??? Vaping Use: Never used Substance Use Topics ??? Alcohol use: No ??? Drug use: No Health Cristo due was reviewed. Medications: Current Outpatient Medications Medication Sig Dispense Refill ??? amoxicillin (AMOXIL) 500 MG tablet Take 1 tablet (500 mg total) by mouth 2 (two) times daily for 10 days. 20 tablet 0 ??? jdasvzipvv-unmaxpomjfqdd-slgjepkp 50-325-40 MG tablet Take 1 tablet by mouth every 4 (four) hours as needed. ??? Calcium Carbonate-Vitamin D (CALCIUM 500 + D OR) Organic Plant Calcium with vitamin D3 and magnesium ??? cetirizine 10 MG tablet Take 10 mg by mouth daily. ??? famotidine (PEPCID) 20 MG tablet TAKE 1 TABLET BY MOUTH TWICE A DAY (Patient taking differently: Take 40 mg by mouth daily.) 180 tablet 1 ??? IPRATROPIUM 0.03 % nasal spray USE 2 SPRAYS INTO EACH NOSTRIL EVERY 12 HOURS 30 mL 0 ??? lisinopril (PRINIVIL) 20 MG tablet TAKE 1 TABLET BY MOUTH EVERY DAY 90 tablet 0 ??? montelukast (SINGULAIR) 10 MG tablet TAKE 1 TABLET BY MOUTH EVERY DAY 90 tablet 1 ??? NON FORMULARY C- pap ; q hs ??? omega-3 fatty acid 1000 MG capsule Take 1,000 mg by mouth 2 (two) times daily. ??? rosuvastatin (CRESTOR) 20 MG tablet TAKE 1 TABLET BY MOUTH EVERYDAY AT BEDTIME 90 tablet 1 ??? vitamin D3, cholecalciferol, 75 MCG (3000 UT) Tab tablet Take 1,000 Units by mouth daily. ??? zinc gluconate 50 MG Tab Take 1 tablet by mouth daily. ??? hypromellose 0.3 % ophthalmic gel Place into both eyes 2 (two) times daily. (Patient not taking: Reported on 12/13/2022) ??? triamcinolone 0.1 % cream Apply topically 3 (three) times daily. 15 g 0 No current facility-administered medications for this visit. Allergies: Not on File Review of Systems: An appropriate review of systems was conducted with the pertinent positives and negatives as noted above in the HPI also including: Review of Systems Respiratory: Negative for cough and shortness of breath. Cardiovascular: Negative for chest pain, palpitations and leg swelling. Gastrointestinal: Negative for abdominal pain, nausea and vomiting. Objective / Physical Exam: Filed Vitals: 12/13/22 0932 BP: 130/78 Pulse: 71 Resp: 16 Temp: 97.3 ??F (36.3 ??C) TempSrc: Temporal SpO2: 98% Weight: 65.8 kg (145 lb) Height: 5' (1.524 m) Body mass index is 28.32 kg/m??. Physical Exam Vitals reviewed. Constitutional: General: She is not in acute distress. Appearance: Normal appearance. She is well-developed. She is obese. She is not ill-appearing, toxic-appearing or diaphoretic. HENT: Head: Normocephalic and atraumatic. Mouth/Throat: Oropharynx is clear and moist. Comments: Very mild erythema but no exudates on the oropharynx Eyes: General: Right eye: No discharge. Left eye: No discharge. Extraocular Movements: Extraocular movements intact. Conjunctiva/sclera: Conjunctivae normal. Cardiovascular: Rate and Rhythm: Normal rate and regular rhythm. Pulses: Normal pulses. Heart sounds: Normal heart sounds. No murmur heard. No friction rub. No gallop. Pulmonary: Effort: Pulmonary effort is normal. No respiratory distress. Breath sounds: Normal breath sounds. No wheezing, rhonchi or rales. Abdominal: General: Bowel sounds are normal. There is no distension. Palpations: Abdomen is soft. Tenderness: There is no abdominal tenderness. There is no guarding. Musculoskeletal: Cervical back: Normal range of motion and neck supple. No tenderness. Lymphadenopathy: Cervical: No cervical adenopathy. Skin: General: Skin is warm. Neurological: Mental Status: She is alert and oriented to person, place, and time. Psychiatric: Mood and Affect: Mood normal. Behavior: Behavior normal. Lab / In Office Testing / Radiograph review: Results for orders placed or performed in visit on 12/13/22 RAPID STREP A Specimen: THROAT Result Value Ref Range RAPID STREP TEST NEGATIVE NEGATIVE Internal Control: VALID VALID Assessment/Plan: 1. Sore throat amoxicillin (AMOXIL) 500 MG tablet RAPID STREP A CULTURE STREP A 2. Rash amoxicillin (AMOXIL) 500 MG tablet RAPID STREP A CULTURE STREP A 3. Exposure to strep throat amoxicillin (AMOXIL) 500 MG tablet RAPID STREP A CULTURE STREP A -The patient has a sore throat that developed a few days after the patient's was diagnosed and confirmed to have strep pharyngitis; due to her exposure started her on amoxicillin 500 mg p.o. twice daily x10 days; rapid strep in the office was negative but culture was sent out; due to the risk of untreated strep and her exposure felt it was better for her to be treated at this time -She also has a rash that is very rough to touch on her shoulders and arms; possibility that this could be an allergic reaction versus a rash due to strep; for now treating with amoxicillin and will monitor I personally spent a total of 30 minutes on the day of the encounter. This includes mbyi-nj-hfek and gec-vscl-aj-face time I provided on the day of the encounter & excludes time spent performing separately reportable services. Followup Plan: Return for already scheduled for March 2023. Instructions on the sign/symptoms of worsening problems were given and verbal acknowledgement of understanding was noted. Those present were instructed to call the office during business hours or go to convenient care when the office is closed. If it's an emergency then go to an ER if necessary to address these worsening conditions. The patient verbalized understanding and agreed to the plan. Allquestions answered to the patient's verbalized satisfaction. Patient Instructions I have sent amoxicillin to your pharmacy. Please take 1 tablet twice a day for 10 days. Complete the entire course of treatment even if you are feeling better. I will see you in March for follow-up Demetrio Shore MD Family Medicine [facility] CATTLE FARMER documented in this encounter Plan of Treatment Upcoming Encounters Date Type Department Care Team (Late st Contact Info) Description 11/02/2024 8:00 AM BEEF CATTLE FARMER Office Visit [address] [place] [address] Ella Hodge FNP [address] [place] [address] [place] [address] 01/19/2025 11:00 AM CDT Office Visit [facility] Pulmonology Specialty Clinic - [address] [place] [address] Stanley Jim MD [address] [place] [address] 06/23/2025 8:20 AM CDT Office Visit [address] [place] [address] Ella Hdoge FNP [address] [facility] [place] [address] documented as of this encounter Procedures Procedure Name Priority Date/Time Associated Diagnosis Comments CULTURE STREP A Routine 12/13/2022 11:11 AM BEEF CATTLE FARMER Exposure to strep throat Rash Sore throat RAPID STREP A Routine 12/13/2022 Exposure to strep throat Rash Sore throat documented in this encounter Results * CULTURE STREP A (12/13/2022 11:11 AM BEEF CATTLE FARMER) THROAT CULTURE STREP A ONLY Negative for Group A Streptococci Negative for Group A Streptococci 12/14/2022 2:36 PM BEEF CATTLE FARMER [facility] STRUCTURE OF ANTERIOR PORTION OF NECK / Unknown 12/13/2022 11:11 AM BEEF CATTLE FARMER Demetrio Shore MD MICROBIOLOGY - G ENERAL ORDERABLES Final Result [facility] [address] [place] [address], [place] [phone] * RAPID STREP A (12/13/2022) RAPID STREP TEST NEGATIVE NEGATIVE MG[address], [place] Internal Control: VALID VALID MG[address], [place] STRUCTURE OF ANTERIOR PORTION OF NECK / Unknown 12/13/2022 Demetrio Shore MD MICROBIOLOGY - G ENERAL ORDERABLES Final Result MG-[address], [place] [address] [place] [address], [place] [phone] documented in this encounter Visit Diagnoses Diagnosis Sore throat- Primary Acute pharyngitis Rash Rash and other nonspecific skin eruption Exposure to strep throat Contact with or exposure to other communicable diseases documented in this encounter Additional Health Concerns Assessment Noted Time PHQ-9 Depression Total Score: 0 01/25/20 22 8:15 AM CDT documented as of this encounter Care Teams Strip Presser Relationship Specialty Start Date End Date Demetrio Shore MD PCP - General FAMILY PRACTICE 11/11/19 03/29/23 Joon Lewis PA PHYSICIAN CASING MACHINE OPERATOR 05/09/21 Callie Guerrero DO Hops Farmworker OBGYN 06/14/21 [place] [address] [address] GASTROENTEROLOGY 06/14/21 Sergey Ramey PA [address] [place] [address] PHYSICIAN CASING MACHINE OPERATOR 06/14/21 Jony Pruitt DPM [address] [place] [address], [address] [place] [address] Referring Physician PODIATRY/SURGERY 06/14/21 [place] [address] [place] [address] ORTHOPAEDIC SURGERY 06/14/21 documented as of this encounter
--- OUTSIDE RECORDS SUMMARY | 2024-10-24 11:53 | XMS_ITS | Encounter Summary ---
Author Organization [facility] Address [facility]. [place], [place] [address] [place] [address] Care Team Providers Care Cooker Sulfate Name Role Phone Joon Lewis Unavailable [phone] Callie Guerrero DO Unavailable [phone] George Osorio MD Unavailable Sergey Ramey Unavailable [phone] Jony Pruitt DPM Unavailable [phone] Gama Graves MD Unavailable [phone] Ella Hodge INFRASTRUCTURE CONSULTANT Primary Care Provider [phone] Encounter Details Date Type Department Care Team (Late st Contact Info) Description 06/02/2023 Orders Only [facility] [address] [facility] [place], [place] [id number] [place] العراقي, STITCH WHEELER Social History Tobacco Use Types Packs/Day Years [...] st Contact Info) Description 11/02/2024 8:00 AM FEED MILL LAB TECHNICIAN Office Visit [facility] [address] [facility] [place] [address] Ella Hodge FNP [address] [place] [address] 01/19/2025 11:00 AM CDT Office Visit [facility] Pul[facility]ology Specialty [facility] - [place] [address] [facility] [address] Stanley Jim MD [address] [place] [address] 06/23/2025 8:20 AM CDT Office Visit [address] [place] [address] Ella Hodge FNP [address] [place] [address] [place] [address] documented as of this encounter Visit Diagnoses Diagnosis Abnormal TSH- Primary Other abnormal clinical finding Cold intolerance Other general symptoms documented in this encounter Additional Health Concerns Assessment Noted Time PHQ-9 Depression Total Score: 0 05/09/20 23 10:49 AM CDT documented as of this encounter Care Teams Cooker Sulfate Relationship Specialty Start Date End Date Ella Hodge FNP [address] [facility] [place] [address] PCP - General NURSE PRACTITIONER 05/09/23 Joon Lewis PA PHYSICIAN COPPER ETCHER 05/09/21 Callie Guerrero DO Rib Chopper OBGYN 06/14/21 [place] [address] [address] [facility] [address] [place] [address] GASTROENTEROLOGY 06/14/21 Sergey Ramey PA [address] [place] [address] PHYSICIAN COPPER ETCHER 06/14/21 Jony Pruitt DPM [address] [place] [address], [address] [place] [address] Referring Physician PODIATRY/SURGERY 06/14/21 [place] [address] [place] [address] ORTHOPAEDIC SURGERY 06/14/21 documented as of this encounter
--- OUTSIDE RECORDS SUMMARY | 2024-10-24 11:54 | XMS_ITS | Encounter Summary ---
Author Organization [facility] Address [address] [facility]. [place], [place] [address] [place] [address] Care Team Providers Care Superintendent Pressure Name Role Phone Demetrio Shore MD Primary Care Pr ovider Unavailable Joon Lewis Unavailable [phone] Callie Guerrero DO Unavailable [phone] George Osorio MD Unavailable Sergey Ramey Unavailable Jony Pruitt DPM Unavailable Gama Graves MD Unavailable Reason for Visit * Reason Comments Hip Bursitis * Physical Therapy (Routine) - Closed Specialty Diagnoses / Procedures Referred By Chet t Referred To Contact PHYSICAL THERAPY / [facility] Physical Therapy Diagnoses TROCHANTERIC PAIN SYNDROME ANDREA Procedures Gama Dobbins MD [address] [facility] [address] [place] [address] Phone: tel: fax: [place] [address] [place] [address] Phone: tel: fax: Referral ID Status Reason Start Date Expiration Date Visits Re quested Visits Authorized [id number] Closed 09/05/2022 09/06/2023 99 99 Encounter Details Date Type Department Care Team (Latest Contact Info) Description 11/14/2022 9:52 AM SENIOR CAPITAL MARKETS SPECIALIST - 11/14/2022 11:59 PM SENIOR CAPITAL MARKETS SPECIALIST Hospital Encounter [facility] Therapy [address] [place] [address] Gama Graves MD [address] [facility] [address] [place] [id number] Nikolas Vaca, PT [address] [place] [address] Hip Bursitis Discharge Disposition: Home or Self [...] suspected to have Coronavirus/COVID-19? No / Unsure 11/14/2022 9:52 AM SENIOR CAPITAL MARKETS SPECIALIST documented as of this encounter Medications at [...] Progress Notes * Nikolas Vaca, PT - 11/14/2022 10:00 AM CST Physical Therapy Visit Note: Patient Name: Love Catherine Diagnosis: Trochanteric bursitis (primary encounter diagnosis) Personal Protective Equipment PPE Used During Visit: Therapist wore medical grade mask throughout session, Patient wore mask throughout session SUBJECTIVE Therapy Visit Total Approved Visits: 10/11 (eval 09/05/22; RE 11/07/22) Therapy Plan of Care: exer, ADL, manual, modalities Current Therapy Orders: 2x4 Diagnosis: B trochanteric hip bursitis Referring Provider: Dr. Star Next MD Visit: NA Work Status: retired Subjective Note: Pt states that she is doing pretty well. She says she plans to continue performing her exercises at home when she is done with physical therapy. Pain Current Location of Pain: B hips through ITB's OBJECTIVE Treatment provided today: Therapeutic Exercise - 29556 Number of Minutes - 92411: 45 Exercise: B piriformis stretch x5 Exercise: Seated HS stretch x5 Exercise: SL clamshells x20 B with red band Exercise: bridge with hip abduction x20 red band Exercise: HL hip abd with red band x20 Exercise: SLR Exercise: Standing side steps with band around knees Exercise: standing hip abd with band 20x B Manual Therapy - 19468 Number of Minutes - 27977: 13 Intervention: HS stretch Intervention: STM/DTM to B greater trochanter and ITB Intervention: piriformis stretch Intervention: quad stretch Modalities Non-Timed Electrical Stimulation Unattended - 27152/G0283: 15' premod to B hips Hot Pack - 54857: 15' post treatment with pre-mod ASSESSMENT Assessment Note: Pt tolerated exercise well during this session. During STM patient noted 1 tender spot inferior to L greater trochanter and a few tender spots near R greater trochanter and along R ITB. Sessionfinished with MHP and premod applied to bilateral hips for comfort. No adverse effects noted. PLAN Plan Changes: Continue 2x/wk for 4 additional weeks Next Visit Plan: Progress B hip flexibility and strength as tolerated. Total Time Total Time in Minutes: 58 Timed Code Treatment Minutes : 58 OR CAPITAL MARKETS SPECIALIST documented in this encounter Plan of Treatment Upcoming Encounters Date Type Department Care Team (Late st Contact Info) Description 11/02/2024 8:00 AM SENIOR CAPITAL MARKETS SPECIALIST Office Visit [facility] [address] [place] [address] Ella Hodge FNP [address] [place] [address] 01/19/2025 11:00 AM CDT Office Visit [facility] Medical Group [facility] [place] [address] [place] [address] Stanley Jim MD [address] [address] 06/23/2025 8:20 AM CDT Office Visit [facility] [address] [place] [address] Ella Hodge [facility] [address] [place] [address] documented as of this encounter Visit Diagnoses Diagnosis Trochanteric bursitis- Primary Enthesopathy of hip region documented in this encounter Additional Health Concerns Assessment Noted Time PHQ-9 Depression Total Score: 0 01/25/20 22 8:15 AM CDT documented as of this encounter Care Teams Superintendent Pressure Relationship Specialty Start Date End Date Demetrio Shore MD PCP - General FAMILY PRACTICE 11/11/19 03/29/23 Joon Lewis PA PHYSICIAN MANAGER CREDIT 05/09/21 Callie Guerrero DO Documentation Coordinator OBGYN 06/14/21 [place] [address] [address] GASTROENTEROLOGY 06/14/21 Sergey Ramey PA [address] [place] [address] [place] [address] PHYSICIAN MANAGER CREDIT 06/14/21 Jony Pruitt DPM [facility], [address] [place] [address] Referring Physician PODIATRY/SURGERY 06/14/21 [place] [address] [place] [address] ORTHOPAEDIC SURGERY 06/14/21 documented as of this encounter
--- OUTSIDE RECORDS SUMMARY | 2024-10-24 11:54 | XMS_ITS | Encounter Summary ---
Author Organization [facility] Address [facility] [place], [place] [address] [place] [address] Care Team Providers Care Grocery Store Associate Name Role Phone Demetrio Shore MD Primary Care Pr ovider Unavailable Joon Lewis Unavailable [phone] Callie Guerrero DO Unavailable George Osorio MD Unavailable Sergey Ramey Unavailable [phone] Jony Pruitt DPM Unavailable Gama Graves MD Unavailable [phone] Encounter Details Date Type Department Care Team (Latest Contact Info) Description 10/01/2022 Travel Social History Tobacco Use Types Packs/Day [...] suspected to have Coronavirus/COVID-19? No / Unsure 10/01/2022 9:50 AM ROPEMAN documented as of this encounter Plan of Treatment Upcoming Encounters Date Type Department Care Team (Late st Contact Info) Description 11/02/2024 8:00 AM ROPEMAN Office Visit [address] [place] [address] Ella Hodge [address] [place] [address] 01/19/2025 11:00 AM CDT Office Visit [facility] Medical [facility] [address] [place] [address] Stanley Jim MD [address] [place] [address] 06/23/2025 8:20 AM CDT Office Visit [address] [place] [address] Ella Hodge [address] [place] [address] documented as of this encounter Visit Diagnoses Not on filedocumented in this encounter Additional Health Concerns Assessment Noted Time PHQ-9 Depression Total Score: 0 01/25/20 8:15 AM CDT documented as of this encounter Care Teams Grocery Store Associate Relationship Specialty Start Date End Date Demetrio Shore MD PCP - General FAMILY PRACTICE 11/11/19 03/29/23 Joon Lewis PA PHYSICIAN LPN OR MEDICAL ASSISTANT 05/09/21 Callie Guerrero DO Territory Outside Sales Manager OBGYN 06/14/21 [place] [address] [facility] [address] [place] [address] GASTROENTEROLOGY 06/14/21 Sergey Ramey PA [address] [place] [address] PHYSICIAN LPN OR MEDICAL ASSISTANT 06/14/21 Jony Pruitt DPM [address] [place] [address], [address] [place] [address] Referring Physician PODIATRY/SURGERY 06/14/21 [place] [address] [place] [address] ORTHOPAEDIC SURGERY 06/14/21 documented as of this encounter
--- OUTSIDE RECORDS SUMMARY | 2024-10-24 11:54 | XMS_ITS | Encounter Summary ---
Author Organization [facility] Address Critical access hospital6 [facility]. [place], [place] [address] [place] [address] Care Team Providers Care Parking Meter Collector Name Role Phone Demetrio Shore MD Primary Care Pr ovider Unavailable Joon Lewis Unavailable [phone] Callie Guerrero DO Unavailable [phone] George Osorio MD Unavailable Sergey Ramey Unavailable [phone] Jony Pruitt DPM Unavailable [phone] Gama Graves MD Unavailable [phone] Reason for Visit * Physical Therapy (Routine) - Closed Specialty Diagnoses / Procedures Referred By Contac t Referred To Contact PHYSICAL THERAPY / [facility] Physical Therapy Diagnoses TROCHANTERIC PAIN SYNDROME ANDREA Procedures Gama Dobbins MD [address] [facility] [address] [place] [address] Phone: tel: fax: [place] [address] [place] [address] Phone: tel: fax: Referral ID Status Reason Start Date Expiration Date Visits Re quested Visits Authorized [id number] Closed 09/05/2022 09/06/2023 99 99 Encounter Details Date Type Department Care Team (Latest Contact Info) Description 11/21/2022 9:55 AM PATTERN DEVELOPER - 11/21/2022 11:59 PM PATTERN DEVELOPER Hospital Encounter [facility] Therapy [address] [place] [address] Gama Graves MD [address] [facility] [address] [place] [address] Daksha Andrews, INDEPENDENT LIVING ADVISOR Discharge Disposition: Home or Self Care (Routine [...] suspected to have Coronavirus/COVID-19? No / Unsure 11/21/2022 9:54 AM PATTERN DEVELOPER documented as of this encounter Medications at [...] this encounter Progress Notes * Daksha Andrews, INDEPENDENT LIVING ADVISOR - 11/21/2022 10:00 AM CST Physical Therapy Visit Note: Patient Name: Love Catherine Diagnosis: Trochanteric bursitis (primary encounter diagnosis) Hip pain Personal Protective Equipment PPE Used During Visit: Therapist wore medical grade mask throughout session, Patient wore mask throughout session SUBJECTIVE Therapy Visit Treatment Day: 13 Total Approved Visits: (eval 09/05/22; RE 11/07/22) Therapy Plan of Care: exer, ADL, manual, modalities Current Therapy Orders: 2x4 Diagnosis: B trochanteric hip bursitis Referring Provider: Dr. Star Ramos MD Visit: NA Work Status: retired Subjective Note: Love reports she has seen some improvement and feels that she is at her baseline. She knows that it will be a maintain them at home following the next week of exercises. Pain Current Location of Pain: B hips through ITB's Current Pain Level: Just tender with palpation. OBJECTIVE Treatment provided today: Therapeutic Exercise - 13867 Exercise: B piriformis stretch x5 Exercise: Seated HS stretch x5 Exercise: SL clamshells x20 B with red band Exercise: bridge with hip abduction x20 red band Exercise: HL hip abd with red band x20 Exercise: SLR Exercise: Standing side steps with band around knees Exercise: standing hip abd with band 20x B Manual Therapy - 29617 Intervention: HS stretch Intervention: STM/DTM to B greater trochanter and ITB Intervention: piriformis stretch Intervention: quad stretch Modalities Timed Ultrasound - 97767: Frequency 1MHz, Continuous 100%, 1.5 W/cm2 Ultrasound Body Part and Patient Position: DNP Modalities Non-Timed Electrical Stimulation Unattended Minutes- G0283: 15 Electrical Stimulation Unattended - 87173/G0283: 15' premod to B hips Hot/Cold Pack Minutes - 95860: 15 Hot Pack - 22613: 15' post treatment with pre-mod Total Non- Timed Modality Minutes: 30 ASSESSMENT Assessment Note: Love is able to complete all exercises well this date. She has some lingering tenderness with palpation to B greater trochanters during marshmallow stick massage. She completed this session with MHP and Premod to B hips for comfort. No adverse effects observed. PLAN Plan Changes: Continue 2x/wk for 4 additional weeks Next Visit Plan: Progress B hip flexibility and strength as tolerated. Total Time Total Time in Minutes: 30 ERN DEVELOPER documented in this encounter Plan of Treatment Upcoming Encounters Date Type Department Care Team (Late st Contact Info) Description 11/02/2024 8:00 AM PATTERN DEVELOPER Office Visit [address] [place] [id number] Ella Hodge FNP [address] [place] [address] [place] [address] 01/19/2025 11:00 AM CDT Office Visit [facility] Medical Group Pulmonology Specialty Clinic - [address] [place] [address] Stanley Jim MD [address] [address] 06/23/2025 8:20 AM CDT Office Visit [facility] [address] [place] [address] Ella Hodge FNP [address] [place] [address] documented as of this encounter Visit Diagnoses Diagnosis Trochanteric bursitis- Primary Enthesopathy of hip region Hip pain Pain in joint, pelvic region and thigh documented in this encounter Additional Health Concerns Assessment Noted Time PHQ-9 Depression Total Score: 0 01/25/20 22 8:15 AM CDT documented as of this encounter Care Teams Parking Meter Collector Relationship Specialty Start Date End Date Demetrio Shore MD PCP - General FAMILY PRACTICE 11/11/19 03/29/23 Joon Lewis PA PHYSICIAN SOLUTION MIXER 05/09/21 Callie Guerrero DO Executive Marketing Assistant OBGYN 06/14/21 [place] [address] [address] GASTROENTEROLOGY 06/14/21 Sergey Ramey PA [address] [facility] [place] [address] PHYSICIAN SOLUTION MIXER 06/14/21 Jony Pruitt DPM [facility], [address] [place] [address] Referring Physician PODIATRY/SURGERY 06/14/21 [place] [address] [place] [address] ORTHOPAEDIC SURGERY 06/14/21 documented as of this encounter
--- OUTSIDE RECORDS SUMMARY | 2024-10-24 11:54 | XMS_ITS | Encounter Summary ---
Author Organization [facility] Address [facility]. [place], [place] [address] [place] [address] Care Team Providers Care Chemical Operations Specialist Name Role Phone Demetrio Shore MD Primary Care Pr ovider Unavailable Joon Lewis Unavailable [phone] Callie Guerrero DO Unavailable [phone] George Osorio MD Unavailable Sergey Ramey Unavailable [phone] Jony Pruitt DPM Unavailable [phone] Gama Graves MD Unavailable [phone] Encounter Details Date Type Department Care Team (Latest Contact Info) Description 11/01/2022 Travel Social History Tobacco Use Types Packs/Day [...] suspected to have Coronavirus/COVID-19? No / Unsure 11/01/2022 9:23 AM DIGITAL MARKETING EXECUTIVE documented as of this encounter Plan of Treatment Upcoming Encounters Date Type Department Care Team (Late st Contact Info) Description 11/02/2024 8:00 AM DIGITAL MARKETING EXECUTIVE Office Visit [address] [place] [address] Ella Hodge [address] [place] [address] 01/19/2025 11:00 AM CDT Office Visit [facility] Medical Group Pul[facility] [address] [place] [address] Stanley Jim MD [address] [place] [address] 06/23/2025 8:20 AM CDT Office Visit [address] [place] [address] Ella Hodge [address] [place] [address] documented as of this encounter Visit Diagnoses Not on filedocumented in this encounter Additional Health Concerns Assessment Noted Time PHQ-9 Depression Total Score: 0 01/25/20 8:15 AM CDT documented as of this encounter Care Teams Chemical Operations Specialist Relationship Specialty Start Date End Date Demetrio Shore MD PCP - General FAMILY PRACTICE 11/11/19 03/29/23 Joon Lewis PA PHYSICIAN SCANNING CLERK 05/09/21 Callie Guerrero DO Loom Tuner OBGYN 06/14/21 [place] [address] [facility] [address] [place] [address] GASTROENTEROLOGY 06/14/21 Sergey Ramey PA [address] [place] [address] PHYSICIAN SCANNING CLERK 06/14/21 Jony Pruitt DPM [address] [place] [address], [address] [place] [address] Referring Physician PODIATRY/SURGERY 06/14/21 [place] [address] [place] [address] ORTHOPAEDIC SURGERY 06/14/21 documented as of this encounter
--- OUTSIDE RECORDS SUMMARY | 2024-10-24 11:54 | XMS_ITS | Encounter Summary ---
Author Organization [facility] Address [address] [facility]. [place], [place] [address] [place] [address] Care Team Providers Care Snaker Driving Horses Name Role Phone Demetrio Shore MD Primary Care Pr ovider Unavailable Joon Lewis Unavailable [phone] Callie Guerrero DO Unavailable [phone] George Osorio MD Unavailable Sergey Ramey Unavailable Jony Pruitt DPM Unavailable Gama Graves MD Unavailable [phone] Reason for Visit * Reason Comments Hip Pain * Physical Therapy (Routine) - Closed Specialty Diagnoses / Procedures Referred By Chet t Referred To Contact PHYSICAL THERAPY / [facility] Physical Therapy Diagnoses TROCHANTERIC PAIN SYNDROME ANDREA Procedures Gama Dobbins MD [address] [facility] [address] [place] [address] Phone: tel: fax: [place] [address] [place] [address] Phone: tel: fax: Referral ID Status Reason Start Date Expiration Date Visits Re quested Visits Authorized [id number] Closed 09/05/2022 09/06/2023 99 99 Encounter Details Date Type Department Care Team (Latest Contact Info) Description 10/22/2022 10:00 AM PIERCING MACHINE OPERATOR - 10/22/2022 11:59 PM PIERCING MACHINE OPERATOR Hospital Encounter [facility] Therapy [address] [place] [address] Gama Graves MD [address] [facility] [address] [place] [address] [place] [address] [place], [place] [id number] Hip Pain Discharge Disposition: Home or Self Care [...] suspected to have Coronavirus/COVID-19? No / Unsure 10/22/2022 9:59 AM PIERCING MACHINE OPERATOR documented as of this encounter Medications [...] Progress Notes * Stephanie Zamora, PT - 10/22/2022 10:00 AM CST Physical Therapy Visit Note: Patient Name: Love Catherine Diagnosis: Hip pain (primary encounter diagnosis) SUBJECTIVE Therapy Visit Total Approved Visits: 07/12 (eval 09/05/22; RE 10/03/22) Therapy Plan of Care: exer, ADL, manual, modalities Current Therapy Orders: 2x4 Diagnosis: B trochanteric hip bursitis Referring Provider: Dr. Star Ramos MD Visit: NA Work Status: retired Subjective Note: Pt reports that her hip pain is improving, but is still present. She feels her pain is 95% better and pain typically is only present with prolonged sitting with aching in her hips. Pain Current Location of Pain: B hips through ITB's OBJECTIVE Treatment provided today: Therapeutic Exercise - 29073 Number of Minutes - 63332: 45 Exercise: B piriformis stretch x5 Exercise: Seated HS stretch x5 Exercise: SL clamshells x20 B with red band Exercise: bridge with hip abduction x20 red band Exercise: HL hip abd with red band x20 Exercise: SLR x 15 Exercise: standing side step with band around knees Exercise: standing hip abd with band 20x B Manual Therapy - 87193 Number of Minutes - 77080: 15 Intervention: HS stretch Intervention: STM/DTM to B greater trochanter and ITB Intervention: piriformis stretch Intervention: quad stretch Modalities Timed Ultrasound Minutes - 74062: 15 Ultrasound - 08324: Frequency 1MHz, Continuous 100%, 1.5 W/cm2 Ultrasound Body Part and Patient Position: 7' to each greater trochanter Total Timed Modality Minutes: 15 Modalities Non-Timed Electrical Stimulation Unattended Minutes- G0283: 15 Electrical Stimulation Unattended - 11460/G0283: 15' premod to B hips Hot Pack - 49325: 15' post treatment with pre-mod Total Non- Timed Modality Minutes: 15 ASSESSMENT Assessment Note: Love continues to struggle with hip strength and flexibility with tenderness to her greater trochanter. She would benefit from continued PT to improve her strength and flexibility. PLAN Plan Changes: Continue 2x/wk for 4 additional weeks Next Visit Plan: Progress B hip flexibility and strength as tolerated. Total Time Total Time in Minutes: 90 Timed Code Treatment Minutes : 75 CING MACHINE OPERATOR documented in this encounter Plan of Treatment Upcoming Encounters Date Type Department Care Team (Late st Contact Info) Description 11/02/2024 8:00 AM PIERCING MACHINE OPERATOR Office Visit [address] [place], [place] [id number] Ella Hodge [address] [place] [address] 01/19/2025 11:00 AM CDT Office Visit [facility] Medical Group Pul[facility]ology Specialty [facility] - [place] [address] [facility] [place] [address] Stanley Jim MD [address] [address] 06/23/2025 8:20 AM CDT Office Visit [facility] [address] [place] [address] Ella Hodge MEDICAL EDITOR [address] [place] [address] documented as of this encounter Visit Diagnoses Diagnosis Hip pain- Primary Pain in joint, pelvic region and thigh documented in this encounter Additional Health Concerns Assessment Noted Time PHQ-9 Depression Total Score: 0 01/25/20 22 8:15 AM CDT documented as of this encounter Care Teams Snaker Driving Horses Relationship Specialty Start Date End Date Demetrio Shore MD PCP - General FAMILY PRACTICE 11/11/19 03/29/23 Joon Lewis PA PHYSICIAN VISUALIZER 05/09/21 Callie Guerrero DO Egg Tester OBGYN 06/14/21 [place] [address] [facility] [address] [place] [address] GASTROENTEROLOGY 06/14/21 Sergey Ramey PA [address] [facility] [place] [address] PHYSICIAN VISUALIZER 06/14/21 Jony Pruitt DPM [address] [place] [address], [address] [place] [address] Referring Physician PODIATRY/SURGERY 06/14/21 [place] [address] [place] [address] ORTHOPAEDIC SURGERY 06/14/21 documented as of this encounter
--- OUTSIDE RECORDS SUMMARY | 2024-10-24 11:54 | XMS_ITS | Encounter Summary ---
Author Organization [facility] Address [facility]. [place], [place] [id number] [place] [address] Care Team Providers Care Hanger Name Role Phone Demetrio Shore MD Primary Care Pr ovider Unavailable Joon Lewis Unavailable [phone] Callie Guerrero DO Unavailable [phone] George Osorio MD Unavailable Sergey Ramey Unavailable [phone] Jony Pruitt DPM Unavailable Gama Graves MD Unavailable [phone] Reason for Visit * Physical Therapy (Routine) - Closed Specialty Diagnoses / Procedures Referred By Contac t Referred To Contact PHYSICAL THERAPY / [facility] Physical Therapy Diagnoses TROCHANTERIC PAIN SYNDROME ANDREA Procedures Gama Dobbins MD [address] [facility] [address] [place] [address] Phone: tel: fax: [place] [address] [place] [address] Phone: tel: fax: Referral ID Status Reason Start Date Expiration Date Visits Re quested Visits Authorized [id number] Closed 09/05/2022 09/06/2023 99 99 Encounter Details Date Type Department Care Team (Late st Contact Info) Description 10/15/2022 9:58 AM VETERANS ADVISER - 10/15/2022 11:59 PM VETERANS ADVISER Hospital Encounter [facility] Therapy [address] [place] [address] Gama Graves MD [address] [facility] [address] [place] [id number] Rosario June, [facility] [address] [place] [address] Discharge Disposition: Home or Self Care (Routine [...] suspected to have Coronavirus/COVID-19? No / Unsure 10/15/2022 9:55 AM VETERANS ADVISER documented as of this encounter Medications at [...] this encounter Progress Notes * Rosario June, HARDBOARD GRINDER - 10/15/2022 10:00 AM CST Physical Therapy Visit Note: Patient Name: Love Catherine Diagnosis: Hip pain (primary encounter diagnosis) SUBJECTIVE Therapy Visit Total Approved Visits: 05/11 (eval 09/05/22; RE 10/03/22) Therapy Plan of Care: exer, ADL, manual, modalities Current Therapy Orders: 2x4 Diagnosis: B trochanteric hip bursitis Referring Provider: Dr. Star Ramos MD Visit: NA Work Status: retired Pain Current Location of Pain: B hips through ITB's OBJECTIVE Treatment provided today: Therapeutic Exercise - 36847 Number of Minutes - 63768: 30 Exercise: B piriformis stretch x5 Exercise: Seated HS stretch x5 Exercise: SL clamshells x20 B with red band Exercise: bridge with hip abduction x20 red band Exercise: HL hip abd with red band x20 Exercise: SLR x 15 Exercise: standing side step with band around knees Exercise: standing hip abd with band 20x B Manual Therapy - 33732 Number of Minutes - 95349: 24 Intervention: HS stretch Intervention: STM/DTM to B greater trochanter and ITB Intervention: piriformis stretch Intervention: quad stretch Modalities Timed Ultrasound - 60595: Frequency 1MHz, Continuous 100%, 1.5 W/cm2 Ultrasound Body Part and Patient Position: 7' to each greater trochanter Modalities Non-Timed Electrical Stimulation Unattended Minutes- G0283: 15 Electrical Stimulation Unattended - 09246/G0283: 15' premod to B hips Hot/Cold Pack Minutes - 28642: 15 Hot Pack - 27140: 15' post treatment with pre-mod Total Non- Timed Modality Minutes: 30 ASSESSMENT Assessment Note: Love demonstrates good recall and movement mone banded exs. with minimal cues for positioning and hold times. Also tolerated SM and foam rolling to B greater trochanter and B ITBand with no ncreased discomfort, Completed sesson with MHP and pre mod to B grateer throchanter in seated position with no adverse effects noted PLAN Plan Changes: Continue 2x/wk for 4 additional weeks Next Visit Plan: Progress B hip flexibility and strength as tolerated. Total Time Total Time in Minutes: 84 Timed Code Treatment Minutes : 54 RANS ADVISER documented in this encounter Plan of Treatment Upcoming Encounters Date Type Department Care Team (Late st Contact Info) Description 11/02/2024 8:00 AM VETERANS ADVISER Office Visit [address] [place] [address] Ella Hodge FNP [address] [place] [address] [place] [address] 01/19/2025 11:00 AM CDT Office Visit [facility] - [address] [place] [address] Stanley Jim MD [address] [address] 06/23/2025 8:20 AM CDT Office Visit [facility] [address] [place] [address] Ella Hodge [facility] [address] [place] [address] documented as of this encounter Visit Diagnoses Diagnosis Hip pain- Primary Pain in joint, pelvic region and thigh documented in this encounter Additional Health Concerns Assessment Noted Time PHQ-9 Depression Total Score: 0 01/25/20 8:15 AM CDT documented as of this encounter Care Teams Hanger Relationship Specialty Start Date End Date Demetrio Shore MD PCP - General FAMILY PRACTICE 11/11/19 03/29/23 Joon Lewis PA PHYSICIAN INTERIOR DESIGN TEACHER 05/09/21 Callie Guerrero DO [employer] Truck Driver OBGYN 06/14/21 [place] [address] [address] GASTROENTEROLOGY 06/14/21 Sergey Ramey PA [address] [place] [address] [place] [address] PHYSICIAN INTERIOR DESIGN TEACHER 06/14/21 Jony Pruitt, DPM [address] [place] [address], [address] [place] [address] Referring Physician PODIATRY/SURGERY 06/14/21 [place] [address] [place] [address] ORTHOPAEDIC SURGERY 06/14/21 documented as of this encounter
--- OUTSIDE RECORDS SUMMARY | 2024-10-24 11:54 | XMS_ITS | Encounter Summary ---
Author Organization [facility] Address [facility]. [place], [place] [address] [place] [address] Care Team Providers Care Review Coordinator Name Role Phone Demetrio Shore MD Primary Care Pr ovider Unavailable Joon Lewis Unavailable [phone] Callie Guerrero DO Unavailable [phone] George Osorio MD Unavailable Sergey Ramey Unavailable [phone] Jony Pruitt DPM Unavailable [phone] Gama Graves MD Unavailable [phone] Encounter Details Date Type Department Care Team (Latest Contact Info) Description 10/29/2022 Travel Social History Tobacco Use Types Packs/Day [...] suspected to have Coronavirus/COVID-19? No / Unsure 10/29/2022 10:41 AM SOAP BOILER documented as of this encounter Plan of Treatment Upcoming Encounters Date Type Department Care Team (Late st Contact Info) Description 11/02/2024 8:00 AM SOAP BOILER Office Visit [address] [place] [address] Ella Hodge [address] [place] [address] 01/19/2025 11:00 AM CDT Office Visit [facility] [address] [place] [address] Stanley Jim MD [address] [place] [address] 06/23/2025 8:20 AM CDT Office Visit [address] [place] [address] Ella Hodge [address] [place] [address] documented as of this encounter Visit Diagnoses Not on filedocumented in this encounter Additional Health Concerns Assessment Noted Time PHQ-9 Depression Total Score: 0 01/25/20 8:15 AM CDT documented as of this encounter Care Teams Review Coordinator Relationship Specialty Start Date End Date Demetrio Shore MD PCP - General FAMILY PRACTICE 11/11/19 03/29/23 Joon Lewis PA PHYSICIAN FARO DEALER 05/09/21 Callie Guerrero DO Motor Grader Operator OBGYN 06/14/21 [place] [address] [facility] [address] [place] [address] GASTROENTEROLOGY 06/14/21 Sergey Ramey PA [address] [place] [address] PHYSICIAN FARO DEALER 06/14/21 Jony Pruitt DPM [address] [place] [address], [address] [place] [address] Referring Physician PODIATRY/SURGERY 06/14/21 [place] [address] [place] [address] ORTHOPAEDIC SURGERY 06/14/21 documented as of this encounter
--- OUTSIDE RECORDS SUMMARY | 2024-10-24 11:54 | XMS_ITS | Encounter Summary ---
Author Organization [facility] Address [facility]. [place], [place] [address] [place] [address] Care Team Providers Care Chemical Handler Name Role Phone Demetrio Shore MD Primary Care Pr ovider Unavailable Joon Lewis Unavailable [phone] Callie Guerrero DO Unavailable [phone] George Osorio MD Unavailable Sergey Ramey Unavailable [phone] Jony Pruitt DPM Unavailable [phone] Gama Graves MD Unavailable [phone] Encounter Details Date Type Department Care Team (Latest Contact Info) Description 11/14/2022 Travel Social History Tobacco Use Types Packs/Day [...] Coronavirus/COVID-19? No / Unsure 11/14/2022 9:52 AM FOREST EXAMINER documented as of this encounter Plan of Treatment Upcoming Encounters Date Type Department Care Team (Late st Contact Info) Description 11/02/2024 8:00 AM FOREST EXAMINER Office Visit [address] [place] [address] Ella Hodge [address] [place] [address] 01/19/2025 11:00 AM CDT Office Visit [facility] [address] [place] [address] Stanley Jim MD [address] [place] [address] 06/23/2025 8:20 AM CDT Office Visit [address] [place] [address] Ella Hodge [address] [place] [address] documented as of this encounter Visit Diagnoses Not on filedocumented in this encounter Additional Health Concerns Assessment Noted Time PHQ-9 Depression Total Score: 0 01/25/20 8:15 AM CDT documented as of this encounter Care Teams Chemical Handler Relationship Specialty Start Date End Date Demetrio Shore MD PCP - General FAMILY PRACTICE 11/11/19 03/29/23 Joon Lewis PA PHYSICIAN BLENDER OPERATOR 05/09/21 Callie Guerrero DO Configuration Consultant OBGYN 06/14/21 [place] [address] [facility] [address] [place] [address] GASTROENTEROLOGY 06/14/21 Sergey Rmaey PA [address] [place] [address] PHYSICIAN BLENDER OPERATOR 06/14/21 Jony Pruitt DPM [address] [place] [address], [address] [place] [address] Referring Physician PODIATRY/SURGERY 06/14/21 [place] [address] [place] [address] ORTHOPAEDIC SURGERY 06/14/21 documented as of this encounter
--- OUTSIDE RECORDS SUMMARY | 2024-10-24 11:54 | XMS_ITS | Encounter Summary ---
Author Organization [facility] Address On license of [facility]. [place], [place] [address] [place] [address] Care Team Providers Care Lead Programmer Name Role Phone Demetrio Shore MD Primary Care Pr ovider Unavailable Joon Lewis Unavailable [phone] Callie Guerrero DO Unavailable [phone] George Osorio MD Unavailable Sergey Ramey Unavailable Jony Pruitt DPM Unavailable Gama Graves MD Unavailable [phone] Reason for Visit * Reason Comments Medication Management Encounter Details Date Type Department Care Team (Late st Contact Info) Description 10/02/2022 10:00 AM TOXICOLOGY TEACHER Office Visit [facility] Multispecialty Care - [address] [place] [address] Demetrio Shore MD Medication Management Social History Tobacco Use Types [...] Coronavirus/COVID-19? No / Unsure 10/01/2022 9:50 AM TOXICOLOGY TEACHER documented as of this encounter Last Filed Vital Signs Vital Sign Reading Time Taken Comments Blood Pressure 132/80 10/02/2022 10:26 AM TOXICOLOGY TEACHER Pulse 64 10/02/2022 10:26 AM TOXICOLOGY TEACHER Temperature 36.8 ??C (98.3 ??F) 10/02/2022 10:[address] Respiratory Rate 18 10/02/2022 10:26 AM TOXICOLOGY TEACHER Oxygen Saturation 99% 10/02/2022 10:26 AM TOXICOLOGY TEACHER Inhaled Oxygen Concentration - - Weight 65.3 kg (144 lb) 10/02/2022 10:26 AM TOXICOLOGY TEACHER Height 152.4 cm (5') 10/02/2022 10:26 AM TOXICOLOGY TEACHER Body Mass Index 28.12 10/02/2022 10:26 AM TOXICOLOGY TEACHER documented in this encounter Patient Instructions * Patient Instructions* Demetrio Shore MD - 10/02/2022 10:00 AM TOXICOLOGY TEACHER Please have your labs done fasting tomorrow morning. You can have water. Vaccines we recommend for you: PCV 20 which is a pneumonia vaccine COVID-19 booster vaccine - bivalent to protect against Omicron COLOGY TEACHER documented in this encounter Progress Notes * Demetrio Shore MD - 10/02/2022 10:00 AM CST Love Catherine is a 76-year-old female who presents today alone for evaluation of Chief Complaint Patient presents with ??? Medication Management History of Present Illness: Here today for med management - has HTN and is taking lisinopril 20 mg po daily - has acid reflux and takes pepcid twice a day - has HLD and takes crestor 20 mg po qhs - has chronic rhinitis and uses montelukast 10mg daily and a nasal spray when needed - she takes a daily allergy medication - her fatigue has resolved - using her CPAP machine more consistently for sleep apnea - goes to PT twice a week for hip bursitis and it is helping her a lot - previously had iron deficiency but was checked recently and her iron is normal without iron supplements - she has stage 3 a CKD; labs last checked in January 2022 [facility] - A1c is in the prediabetic range and was most recently 5.9 in January 2022 - takes vitamins that include vitamin D, zinc, calcium, omega 3 fatty acids - she was sick last week and was having a sore throat, ear pain, some diarrhea, but these symptoms have resolved; would like to make sure her ears and throat are okay - her daughter had a viral URI and she caught it from her - overall is feeling better - received her high dose flu shot in [place] at the [facility] in July 2022 - she is not sure about the COVID-19 booster vaccine and is wondering if she should get it; the last dose she got a bit sick Past Medical History: Diagnosis Date ??? Allergic [...] use: No ??? Drug use: No Health Maitenance due was reviewed. Medications: Current Outpatient Medications Medication Sig Dispense Refill ??? gnexwfgwkg-iuggrvuqnpkir-xpjmbfds 50-325-40 MG tablet Take 1 tablet by mouth every 4 (four) hours as needed. ??? Calcium Carbonate-Vitamin D (CALCIUM 500 + D OR) Organic Plant Calcium with vitamin D3 and magnesium ??? cetirizine 10 MG tablet Take 10 mg by mouth daily. ??? famotidine (PEPCID) 20 MG tablet TAKE 1 TABLET BY MOUTH TWICE A DAY 180 tablet 0 ??? hypromellose 0.3 % ophthalmic gel Place into both eyes 2 (two) times daily. ??? IPRATROPIUM 0.03 % nasal spray USE 2 SPRAYS INTO EACH NOSTRIL EVERY 12 HOURS 30 mL 0 ??? lisinopril (PRINIVIL) 20 MG tablet TAKE 1 TABLET BY MOUTH EVERY DAY 90 tablet 0 ??? montelukast (SINGULAIR) 10 MG tablet TAKE 1 TABLET BY MOUTH EVERY DAY 90 tablet 1 ??? omega-3 fatty acid 1000 MG capsule Take 1,000 mg by mouth 2 (two) times daily. ??? rosuvastatin (CRESTOR) 20 MG tablet TAKE 1 TABLET BY MOUTH EVERYDAY AT BEDTIME 90 tablet 1 ??? vitamin D3, cholecalciferol, 75 MCG (3000 UT) Tab tablet Take 1,000 Units by mouth daily. ??? zinc gluconate 50 MG Tab Take 1 tablet by mouth daily. ??? NON FORMULARY C- pap ; q hs ??? triamcinolone 0.1 % cream Apply topically 3 (three) times daily. 15 g 0 No current facility-administered medications for this visit. Allergies: No Known Allergies Review of Systems: An appropriate review of systems was conducted with the pertinent positives and negatives as noted above in the HPI also including: Review of Systems Constitutional: Negative for chills and fever. HENT: Negative for ear discharge and ear pain. Eyes: Negative for discharge. Respiratory: Negative for cough and shortness of breath. Cardiovascular: Negative for chest pain, palpitations and leg swelling. Gastrointestinal: Negative for abdominal pain, nausea and vomiting. Objective / Physical Exam: Filed Vitals: 10/02/22 1026 BP: 132/80 Pulse: 64 Resp: 18 Temp: 98.3 ??F (36.8 ??C) TempSrc: Temporal SpO2: 99% Weight: 65.3 kg (144 lb) Height: 5' (1.524 m) Body mass index is 28.12 kg/m??. Physical Exam Vitals reviewed. Constitutional: General: She is not in acute distress. Appearance: Normal appearance. She is well-developed. She is not ill-appearing, toxic-appearing or diaphoretic. HENT: Head: Normocephalic and atraumatic. Right Ear: Tympanic membrane, external ear and ear canal normal. Left Ear: Tympanic membrane, external ear and ear canal normal. Nose: No rhinorrhea. Mouth/Throat: Oropharynx is clear and moist. Mucous membranes are moist. No posterior oropharyngealerythema. Eyes: General: Right eye: No discharge. Left [...] Normal range of motion and neck supple. Skin: General: Skin is warm. Neurological: Mental Status: She is alert and oriented to person, place, and time. Psychiatric: Mood and Affect: Mood normal. Behavior: Behavior normal. Lab / In Office Testing / Radiograph review: No results found for this visit on 10/02/22. Assessment/Plan: 1. Stage 3a chronic kidney disease (CMS/HCC) BASIC METABOLIC PANEL 2. Mixed hyperlipidemia LIPID PANEL 3. Prediabetes LIPID PANEL HEMOGLOBIN, GLYCOSYLATED 4. Essential hypertension LIPID PANEL BASIC METABOLIC PANEL 5. Viral URI 6. Obstructive sleep apnea syndrome 7. Chronic rhinitis 8. Gastroesophageal reflux disease without esophagitis - she has had reduced GFRs in the past; will recheck her BMP - she is on lisinopril for HTN and is renoprotective; will monitor - will recheck her lipid panel fasting; she is on a statin for this - she has prediabetes and will recheck her A1c; not on metformin at this time - her BP is well-controlled on lisinopril which she will continue - she recently had a viral URI and is recovering well; her symptoms started last week and she is feeling better; exam was normal and vitals stable - continue to use the CPAP machine for her sleep apnea; she follows up with pulm for this - her chronic rhinitis is controlled with singulair daily and a nasal spray as needed - she continues to use pepcid for her acid reflux which is helping control her symptoms - discussed the COVID-19 booster with her and advised that she should get it due to her age and comorbidities; it would be best to get it before the holidays to help protect her; she is going to lookinto it further - also advised she needs PCV 20; she did get PPSV 23 in 2016 - she received the high dose flu shot in July 2022 at a [facility] in [place], [place]; unableto retrieve this through -[facility] I spent 30 minutes today reviewing the patient's medical record, obtaining history, performing an exam, ordering medications, tests, and/or procedures, documenting in the medical record and counseling and educating the patient. Followup Plan: Return for Med management. Instructions on the sign/symptoms of worsening problems [...] to the patient's verbalized satisfaction. Patient Instructions Please have your labs done fasting tomorrow morning. You can have water. Vaccines we recommend for you: PCV 20 which is a pneumonia vaccine COVID-19 booster vaccine - bivalent to protect against Omicron Demetrio Shore MD Family Medicine [facility] COLOGY TEACHER documented in this encounter Plan of Treatment Upcoming Encounters Date Type Department Care Team (Late st Contact Info) Description 11/02/2024 8:00 AM TOXICOLOGY TEACHER Office Visit [facility] [address] [facility] [place] [address] Ella Hodge FNP [address] [place] [address] [place] [address] 01/19/2025 11:00 AM CDT Office Visit [facility] Pulmonology Specialty Clinic - [address] [place] [address] Stanley Jim MD [address] [address] 06/23/2025 8:20 AM CDT Office Visit [facility] [address] [facility] [place] [id number] Ella Hodge FNP [address] [facility] [place], [place] [id number] documented as of this encounter Results * (ABNORMAL) BASIC METABOLIC PANEL (10/03/2022 9:50 AM TOXICOLOGY TEACHER) [facility] GLUCOSE 99 70 - 99 MG/DL 10/03/2022 10:27 AM [facility] BUN 18 7 - 18 MG/DL 10/03/2022 10:27 AM TOXICOLOGY TEACHER [facility] CREATININE S/P/B 1.02 0.50 - 1.20 MG/DL 10/03/2022 10:27 AM TOXICOLOGY TEACHER [facility] SODIUM S/P/B 141 136 - 145 MMOL/L 10/03/2022 10:27 AM TOXICOLOGY TEACHER [facility] POTASSIUM S/P/B 4.4 3.5 - 5.1 MMOL/L 10/03/2022 10:27 AM TOXICOLOGY TEACHER [facility] CHLORIDE S/P/B 105 100 - 108 MMOL/L 10/03/2022 10:27 AM TOXICOLOGY TEACHER [facility] CO2 28.4 21.0 - 32.0 MMOL/L 10/03/2022 10:27 AM [facility] CALCIUM S/P/B 9.3 8.5 - 10.1 MG/DL 10/03/2022 10:27 AM TOXICOLOGY TEACHER [facility] ANION GAP 7.6 5.0 - 15.0 MMOL/L 10/03/2022 10:27 AM TOXICOLOGY TEACHER [facility] BUN CREATININE RATIO 17.6 6 - 26 10/03/2022 10:27 AM TOXICOLOGY TEACHER [facility] GFR ESTIMATE 56(L) >90 ML/MIN/1.7 3 M2 10/03/2022 10:27 AM TOXICOLOGY TEACHER [facility] Comment: NOTE: eGFR is not calculated for patients <18 years of age. This is an estimated GFR calculation using the new CKD EPI creatinine equation without race and so does not require a correction factor for race. This estimated GFR should not be used for calculating drug doses. 10/03/2022 9:50 AM TOXICOLOGY TEACHER Demetrio Shore MD LABORATORY Final Result Performing Organization Address [facility] Co de Phone Number [facility] [address] [place] [address], * (ABNORMAL) HEMOGLOBIN, GLYCOSYLATED (10/03/2022 9:50 AM TOXICOLOGY TEACHER) HGB A1C 5.9(H) 0.0 - 5.6 % 10/03/2022 11:07 AM TOXICOLOGY TEACHER [facility] Comment: ADA GUIDELINES 2010 5.7 TO 6.4% INCREASED RISK OF DIABETES > OR = 6.5% CONSISTENT WITH DIABETES ADA GUIDELINES 2010 5.7 TO 6.4% INCREASED RISK OF DIABETES > OR = 6.5% CONSISTENT WITH DIABETES CORRECTED ON 10/03 AT 1107: PREVIOUSLY REPORTED 5.9 ?? ADA GUIDELINES 2010 5.7 TO 6.4% INCREASED RISK OF DIABETES > OR = 6.5% CONSISTENT WITH DIABETES ESTIMATED AVG GLUCOSE 123 mg/dL 10/03/2022 11:07 AM TOXICOLOGY TEACHER [facility] 10/03/2022 9:50 AM TOXICOLOGY TEACHER Demetrio Shore MD LABORATORY Edited Result - Final Performing Organization Address [facility] Co de Phone Number [facility] [address] [place] [address], * LIPID PANEL (10/03/2022 9:50 AM TOXICOLOGY TEACHER) CHOLESTEROL 143 0 - 200 MG/DL 10/03/2022 10:27 AM [facility] TRIGLYCERIDES 49 0 - 150 MG/DL 10/03/2022 10:27 AM [facility] HDL 63 >40 MG/DL 10/03/2022 10:27 AM [facility] LDL (CALCULATED) 70 <100 MG/DL 10/03/2022 10:27 AM [facility] NON HDL CHOLESTEROL 80 0 - 130 MG/DL 10/03/2022 10:27 AM [facility] Comment: NOTE: WHEN THE TRIGLYCERIDES ARE >200 mg/dL, NON HDL C IS A SECONDARY TARGET OF THERAPY, WITH A GOAL 30 mg/dL HIGHER THAN THE IDENTIFIED LDL C GOAL. CHOL/HDL RATIO 2.3 0.0 - 4.5 10/03/2022 10:27 AM [facility] VLDL CALCULATION 10 5 - 55 MG/DL 10/03/2022 10:27 AM [facility] LIPID INTERPRETATION 10/03/2022 10:27 AM [facility] Comment: [facility] REPORT RECOMMENDATIONS: ?ADULT ?CHILD ??LOW RISK: ?CHOLESTEROL ? <200 ? <170 ?TRIGLYCERIDE ?<150 ?--- ?HDL ? >=60 ?--- ?LDL ? <100 ? <110 ??BORDERLINE: ?CHOLESTEROL ? 200-239 ?? 170-199 ?TRIGLYCERIDE ?150-199 ? --- ?HDL ?40-59 ?--- ?LDL ? 100-159 ?? 110-129 ??HIGH RISK: ?CHOLESTEROL ? >=240 ?>=200 ?TRIGLYCERIDE ?>=200 ? --- ?HDL ?<40 ?--- ?LDL ? >=160 ?>=130 10/03/2022 9:50 AM TOXICOLOGY TEACHER us Demetrio Shore MD LABORATORY Final Result Performing Organization Address City/State/[facility] Co de Phone Number [facility] [address] [place] [address], documented in this encounter Visit Diagnoses Diagnosis Stage 3a chronic kidney disease ([facility]/HCC [facility])- Primary Mixed hyperlipidemia Prediabetes Other abnormal glucose Essential hypertension Unspecified essential hypertension Viral URI Acute upper respiratory infections of unspecified site Obstructive sleep apnea syndrome Obstructive sleep apnea (adult) (pediatric) Chronic rhinitis Gastroesophageal reflux disease without esophagitis Esophageal reflux documented in this encounter Additional Health Concerns Assessment Noted Time PHQ-9 Depression Total Score: 0 01/25/20 22 8:15 AM CDT documented as of this encounter Care Teams Lead Programmer Relationship Specialty Start Date End Date Demetrio Shore MD PCP - General FAMILY PRACTICE 11/11/19 03/29/23 Joon Lewis PA PHYSICIAN SALES INCENTIVE ANALYST 05/09/21 Callie Guerrero DO Postdoctoral Fellow OBGYN 06/14/21 [place] [address] [address] [facility] [address] [place] [address] GASTROENTEROLOGY 06/14/21 Sergey Ramey PA [address] [place] [address] PHYSICIAN SALES INCENTIVE ANALYST 06/14/21 Jony Pruitt DPM [address] [place] [address], [address] [place] [address] Referring Physician PODIATRY/SURGERY 06/14/21 [place] [address] [place] [address] ORTHOPAEDIC SURGERY 06/14/21 documented as of this encounter
--- OUTSIDE RECORDS SUMMARY | 2024-10-24 11:54 | XMS_ITS | Encounter Summary ---
Author Organization [facility] Address [facility] [place], [place] [address] [place] [address] Care Team Providers Care Boat Master Name Role Phone Demetrio Shore MD Primary Care Pr ovider Unavailable Joon Lewis Unavailable [phone] Callie Guerrero DO Unavailable [phone] George Osorio MD Unavailable Sergey Ramey Unavailable Jony Pruitt DPM Unavailable Gama Graves MD Unavailable Reason for Visit * Physical Therapy (Routine) - Closed Specialty Diagnoses / Procedures Referred By Contac t Referred To Contact PHYSICAL THERAPY / [facility] Physical Therapy Diagnoses TROCHANTERIC PAIN SYNDROME ANDREA Procedures Gama Dobbins MD [address] [facility] [address] [place] [address] Phone: tel: fax: [place] [address] [place] [address] Phone: tel: fax: Referral ID Status Reason Start Date Expiration Date Visits Re quested Visits Authorized [id number] Closed 09/05/2022 09/06/2023 99 99 Encounter Details Date Type Department Care Team (Latest Contact Info) Description 10/29/2022 10:43 AM REGISTER IN CHANCERY - 10/29/2022 11:59 PM REGISTER IN CHANCERY Hospital Encounter [facility] Therapy [address] [place] [address] Gama Graves MD [address] [facility] [address] [place] [address] Daksha Andrews, DIRECTOR OF PROFESSIONAL SERVICES Discharge Disposition: Home or Self Care (Routine [...] Coronavirus/COVID-19? No / Unsure 10/29/2022 10:41 AM REGISTER IN CHANCERY documented as of this encounter Medications at [...] this encounter Progress Notes * Daksha Andrews, DIRECTOR OF PROFESSIONAL SERVICES - 10/29/2022 10:45 AM CST Physical Therapy Visit Note: Patient Name: Love Catherine Diagnosis: Hip pain (primary encounter diagnosis) Personal Protective Equipment PPE Used During Visit: Therapist wore medical grade mask throughout session, Patient wore mask throughout session SUBJECTIVE Therapy Visit Treatment Day: 10 Total Approved Visits: 08/11 (eval 09/05/22; RE 10/03/22) Therapy Plan of Care: exer, ADL, manual, modalities Current Therapy Orders: 2x4 Diagnosis: B trochanteric hip bursitis Referring Provider: Dr. Star Ramos MD Visit: NA Work Status: retired Subjective Note: Love noted that she is diong well overall and has seen improvement in the pain and mobility. Pain Current Location of Pain: B hips through ITB's OBJECTIVE Treatment provided today: Therapeutic Exercise - 91099 Exercise: B piriformis stretch x5 Exercise: Seated HS stretch x5 Exercise: SL clamshells x20 B with red band Exercise: bridge with hip abduction x20 red band Exercise: HL hip abd with red band x20 Exercise: SLR Exercise: standing side step with band around knees Exercise: standing hip abd with band 20x B Manual Therapy - 53205 Intervention: HS stretch Intervention: STM/DTM to B greater trochanter and ITB Intervention: piriformis stretch Intervention: quad stretch Modalities Timed Ultrasound - 51984: Frequency 1MHz, Continuous 100%, 1.5 W/cm2 Ultrasound Body Part and Patient Position: 7' to each greater trochanter Modalities Non-Timed Electrical Stimulation Unattended - 62785/G0283: 15' premod to B hips Hot Pack - 72390: 15' post treatment with pre-mod ASSESSMENT Assessment Note: Love has displayed improved hip endurnace and strength, and was able to increase her reps and sets with reduced discomfort. She has good recall of activities. She does require slight cues for proper form and technique. Completed this session with US, MHP and IFC for comfort. No adverse effects observed. PLAN Plan Changes: Continue 2x/wk for 4 additional weeks Next Visit Plan: Progress B hip flexibility and strength as tolerated. STER IN CHANCERY documented in this encounter Plan of Treatment Upcoming Encounters Date Type Department Care Team (Late st Contact Info) Description 11/02/2024 8:00 AM REGISTER IN CHANCERY Office Visit [facility] [address] [facility] [place] [address] Ella Hodge FNP [address] [facility] [place] [address] 01/19/2025 11:00 AM CDT Office Visit [facility] Pulmonology Specialty Clinic - [address] [place] [address] Stanley Jim MD [address] [place] [address] 06/23/2025 8:20 AM CDT Office Visit [facility] [address] [address] Ella Hodge FNP [address] [place] [address] documented as of this encounter Visit Diagnoses Diagnosis Hip pain- Primary Pain in joint, pelvic region and thigh documented in this encounter Additional Health Concerns Assessment Noted Time PHQ-9 Depression Total Score: 0 01/25/20 8:15 AM CDT documented as of this encounter Care Teams Boat Master Relationship Specialty Start Date End Date Demetrio Shore MD PCP - General FAMILY PRACTICE 11/11/19 03/29/23 Joon Lewis PA PHYSICIAN AVIONICS TEST TECHNICIAN 05/09/21 Callie Guerrero DO Structures Technician OBGYN 06/14/21 [place] [address] [phone] GASTROENTEROLOGY 06/14/21 Sergey Ramey PA [address] [place] [address] [place] [address] PHYSICIAN AVIONICS TEST TECHNICIAN 06/14/21 Jony Pruitt DPM [facility], [address] [place] [address] Referring Physician PODIATRY/SURGERY 06/14/21 [place] [address] [place], [place] [id number] ORTHOPAEDIC SURGERY 06/14/21 documented as of this encounter
--- OUTSIDE RECORDS SUMMARY | 2024-10-24 11:54 | XMS_ITS | Encounter Summary ---
Author Organization [facility] Address [address] [facility]. [place], [place] [address] [place] [address] Care Team Providers Care Gaming Host Name Role Phone Demetrio Shore MD Primary Care Pr ovider Unavailable Joon Lewis Unavailable [phone] Callie Guerrero DO Unavailable [phone] George Osorio MD Unavailable Sergey Ramey Unavailable Jony Pruitt DPM Unavailable Gama Graves MD Unavailable [phone] Reason for Visit * Reason Comments Hip Pain * Physical Therapy (Routine) - Closed Specialty Diagnoses / Procedures Referred By Chet t Referred To Contact PHYSICAL THERAPY / [facility] Physical Therapy Diagnoses TROCHANTERIC PAIN SYNDROME ANDREA Procedures Gama Dobbins MD [address] [facility] [address] [place] [address] Phone: tel: [place]: [place] [address] [place] [address] Phone: tel: fax: Referral ID Status Reason Start Date Expiration Date Visits Re quested Visits Authorized [id number] Closed 09/05/2022 09/06/2023 99 99 Encounter Details Date Type Department Care Team (Latest Contact Info) Description 10/10/2022 9:55 AM PLATE DRYING MACHINE TENDER - 10/10/2022 11:59 PM PLATE DRYING MACHINE TENDER Hospital Encounter [facility] Therapy [address] [place] [address] Gama Graves MD [address] [facility] [address] [place] [id number] [place] [address] [place], [place] [id number] Hip Pain Discharge Disposition: Home or Self [...] suspected to have Coronavirus/COVID-19? No / Unsure 10/10/2022 9:55 AM PLATE DRYING MACHINE TENDER documented as of this encounter Medications at [...] Progress Notes * Stephanie Zamora, PT - 10/10/2022 10:00 AM CST Physical Therapy Visit Note: Patient Name: Love Catherine Diagnosis: Hip pain (primary encounter diagnosis) SUBJECTIVE Therapy Visit Total Approved Visits: 05/11 (eval 09/05/22; RE 10/03/22) Therapy Plan of Care: exer, ADL, manual, modalities Current Therapy Orders: 2x4 Diagnosis: B trochanteric hip bursitis Referring Provider: Dr. Star Ramos MD Visit: NA Work Status: retired Subjective Note: Love feels her flexibility and pain are improving, but she continues to have soreness in her hips B. She has been compliant with her exercises at home. Pain Current Location of Pain: B hips through ITB's OBJECTIVE Treatment provided today: Therapeutic Exercise - 88888 Number of Minutes - 77259: 30 Exercise: B piriformis stretch x5 Exercise: Seated HS stretch x5 Exercise: SL clamshells x20 B with red band Exercise: bridge with hip abduction x20 red band Exercise: HL hip abd with red band x20 Exercise: SLR x 15 Exercise: standing side step with band around knees Exercise: standing hip abd with band 20x B Manual Therapy - 07192 Number of Minutes - 66993: 30 Intervention: HS stretch Intervention: STM/DTM to B greater trochanter and ITB Intervention: piriformis stretch Intervention: quad stretch Modalities Timed Ultrasound Minutes - 01757: 14 Ultrasound - 37809: Frequency 1MHz, Continuous 100%, 1.5 W/cm2 Ultrasound Body Part and Patient Position: 7' to each greater trochanter Total Timed Modality Minutes: 14 Modalities Non-Timed Electrical Stimulation Unattended Minutes- G0283: 15 Electrical Stimulation Unattended - 68814/G0283: 15' premod to B hips Hot Pack - 22325: 15' post treatment with pre-mod Total Non- Timed Modality Minutes: 15 ASSESSMENT Assessment Note: Pt continues to have tenderness along her greater trochanter bilaterally. She tolerated her new theraband hip strengthening exercises well. Love would benefit from continued PT to improve her hip strength and flexibility further. PLAN Plan Changes: Continue 2x/wk for 4 additional weeks Next Visit Plan: Progress B hip flexibility and strength as tolerated. Total Time Total Time in Minutes: 89 Timed Code Treatment Minutes : 74 E DRYING MACHINE TENDER documented in this encounter Plan of Treatment Upcoming Encounters Date Type Department Care Team (Late st Contact Info) Description 11/02/2024 8:00 AM PLATE DRYING MACHINE TENDER Office Visit [address] [place], [place] [phone] Ella Hodge [address] [place] [address] 01/19/2025 11:00 AM CDT Office Visit [facility] Medical [facility] [place] [address] [place] [address] Stanley Jim MD [address] [address] 06/23/2025 8:20 AM CDT Office Visit [facility] [address] [place] [address] Ella Hodge [facility] [address] [place] [address] documented as of this encounter Visit Diagnoses Diagnosis Hip pain- Primary Pain in joint, pelvic region and thigh documented in this encounter Additional Health Concerns Assessment Noted Time PHQ-9 Depression Total Score: 0 01/25/20 22 8:15 AM CDT documented as of this encounter Care Teams Gaming Host Relationship Specialty Start Date End Date Demetrio Shore MD PCP - General FAMILY PRACTICE 11/11/19 03/29/23 Joon Lewis PA PHYSICIAN MAINTENANCE APPRENTICE 05/09/21 Callie Guerrero DO Window Tinter OBGYN 06/14/21 [place] [address] [phone] GASTROENTEROLOGY 06/14/21 Sergey Ramey PA [address] [place] [address] PHYSICIAN MAINTENANCE APPRENTICE 06/14/21 Jony Pruitt DPM [address] [place] [address], [address] [place] [address] Referring Physician PODIATRY/SURGERY 06/14/21 [place] [address] [address] [place] [address] ORTHOPAEDIC SURGERY 06/14/21 documented as of this encounter
--- OUTSIDE RECORDS SUMMARY | 2024-10-24 11:54 | XMS_ITS | Encounter Summary ---
Author Organization [facility] Address [facility]. [place], [place] [address] [place] [address] Care Team Providers Care Dietitian Teacher Name Role Phone Demetrio Shore MD Primary Care Pr ovider Unavailable Joon Lewis Unavailable [phone] Callie Guerrero DO Unavailable [phone] George Osorio MD Unavailable Sergey Ramey Unavailable [phone] Jony Pruitt DPM Unavailable [phone] Gama Graves MD Unavailable [phone] Encounter Details Date Type Department Care Team (Latest Contact Info) Description 11/07/2022 Travel Social History Tobacco Use Types Packs/Day [...] suspected to have Coronavirus/COVID-19? No / Unsure 11/07/2022 9:52 AM PAIN MANAGEMENT NURSE documented as of this encounter Plan of Treatment Upcoming Encounters Date Type Department Care Team (Late st Contact Info) Description 11/02/2024 8:00 AM PAIN MANAGEMENT NURSE Office Visit [address] [place] [address] Ella Hodge [address] [place] [address] 01/19/2025 11:00 AM CDT Office Visit [facility] [address] [place] [address] Stanley Jim MD [address] [place] [address] 06/23/2025 8:20 AM CDT Office Visit [address] [place] [address] Ella Hodge [address] [place] [address] documented as of this encounter Visit Diagnoses Not on filedocumented in this encounter Additional Health Concerns Assessment Noted Time PHQ-9 Depression Total Score: 0 01/25/20 8:15 AM CDT documented as of this encounter Care Teams Dietitian Teacher Relationship Specialty Start Date End Date Demetrio Shore MD PCP - General FAMILY PRACTICE 11/11/19 03/29/23 Joon Lewis PA PHYSICIAN INSTRUMENTATION AND CONTROL TECHNICIAN 05/09/21 Callie Guerrero DO Mill Platform Supervisor OBGYN 06/14/21 [place] [address] [facility] [address] [place] [address] GASTROENTEROLOGY 06/14/21 Sergey Ramey PA [address] [place] [address] PHYSICIAN INSTRUMENTATION AND CONTROL TECHNICIAN 06/14/21 Jony Pruitt DPM [address] [place] [address], [address] [place] [address] Referring Physician PODIATRY/SURGERY 06/14/21 [place] [address] [place] [address] ORTHOPAEDIC SURGERY 06/14/21 documented as of this encounter
--- OUTSIDE RECORDS SUMMARY | 2024-10-24 11:54 | XMS_ITS | Encounter Summary ---
Author Organization [facility] Address [facility] [place], [place] [address] [place] [address] Care Team Providers Care Script Supervisor Name Role Phone Demetrio Shore MD Primary Care Pr ovider Unavailable Joon Lewis Unavailable [phone] Callie Guerrero DO Unavailable [phone] George Osorio MD Unavailable Sergey Ramey Unavailable [phone] Jony Pruitt DPM Unavailable [phone] Gama Graves MD Unavailable [phone] Encounter Details Date Type Department Care Team (Latest Contact Info) Description 10/10/2022 Travel Social History Tobacco Use Types Packs/Day [...] Coronavirus/COVID-19? No / Unsure 10/10/2022 9:55 AM CONSTRUCTION DRIVER documented as of this encounter Plan of Treatment Upcoming Encounters Date Type Department Care Team (Late st Contact Info) Description 11/02/2024 8:00 AM CONSTRUCTION DRIVER Office Visit [address] [place] [address] Ella Hodge [address] [place] [address] 01/19/2025 11:00 AM CDT Office Visit [facility] [address] [place] [address] Stanley Jim MD [address] [place] [address] 06/23/2025 8:20 AM CDT Office Visit [address] [place] [address] Ella Hodge [address] [place] [address] documented as of this encounter Visit Diagnoses Not on filedocumented in this encounter Additional Health Concerns Assessment Noted Time PHQ-9 Depression Total Score: 0 01/25/20 8:15 AM CDT documented as of this encounter Care Teams Script Supervisor Relationship Specialty Start Date End Date Demetrio Shore MD PCP - General FAMILY PRACTICE 11/11/19 03/29/23 Joon Lewis PA PHYSICIAN SENIOR WEB DEVELOPER 05/09/21 Callie Guerrero DO Website Admin OBGYN 06/14/21 [place] [address] [facility] [address] [place] [address] GASTROENTEROLOGY 06/14/21 Sergey Ramey PA [address] [place] [address] PHYSICIAN SENIOR WEB DEVELOPER 06/14/21 Jony Pruitt DPM [address] [place] [address], [address] [place] [address] Referring Physician PODIATRY/SURGERY 06/14/21 [place] [address] [place] [address] ORTHOPAEDIC SURGERY 06/14/21 documented as of this encounter
--- OUTSIDE RECORDS SUMMARY | 2024-10-24 11:54 | XMS_ITS | Encounter Summary ---
Author Organization [facility] Address [facility]. [place], [place] [address] [place] [address] Care Team Providers Care Tugboat Operator Name Role Phone Demetrio Shore MD Primary Care Pr ovider Unavailable Joon Lewis Unavailable [phone] Callie Guerrero DO Unavailable [phone] George Osorio MD Unavailable Sergey Ramey Unavailable [phone] Jony Pruitt DPM Unavailable [phone] Gama Graves MD Unavailable [phone] Encounter Details Date Type Department Care Team (Latest Contact Info) Description 10/15/2022 Travel Social History Tobacco Use Types Packs/Day [...] Coronavirus/COVID-19? No / Unsure 10/15/2022 9:55 AM PUBLICATION DISTRIBUTOR documented as of this encounter Plan of Treatment Upcoming Encounters Date Type Department Care Team (Late st Contact Info) Description 11/02/2024 8:00 AM PUBLICATION DISTRIBUTOR Office Visit [address] [place] [address] Ella Hodge [address] [place] [address] 01/19/2025 11:00 AM CDT Office Visit [facility] [address] [place] [address] Stanley Jim MD [address] [place] [address] 06/23/2025 8:20 AM CDT Office Visit [address] [place] [address] Ella Hodge [address] [place] [address] documented as of this encounter Visit Diagnoses Not on filedocumented in this encounter Additional Health Concerns Assessment Noted Time PHQ-9 Depression Total Score: 0 01/25/20 8:15 AM CDT documented as of this encounter Care Teams Tugboat Operator Relationship Specialty Start Date End Date Demetrio Shore MD PCP - General FAMILY PRACTICE 11/11/19 03/29/23 Joon Lewis PA PHYSICIAN COATING AND EMBOSSING UNIT OPERATOR 05/09/21 Callie Guerrero DO Lab Animal Technician OBGYN 06/14/21 [place] [address] [facility] [address] [place] [address] GASTROENTEROLOGY 06/14/21 Sergey Ramey PA [address] [place] [address] PHYSICIAN COATING AND EMBOSSING UNIT OPERATOR 06/14/21 Jony Pruitt DPM [address] [place] [address], [address] [place] [address] Referring Physician PODIATRY/SURGERY 06/14/21 [place] [address] [place] [address] ORTHOPAEDIC SURGERY 06/14/21 documented as of this encounter
--- OUTSIDE RECORDS SUMMARY | 2024-10-24 11:54 | XMS_ITS | Encounter Summary ---
Author Organization [facility] Address [facility]. [place], [place] [address] [place] [address] Care Team Providers Care Collar Stitcher Name Role Phone Demetrio Shore MD Primary Care Pr ovider Unavailable Joon Lewis Unavailable [phone] Callie Guerrero DO Unavailable [phone] George Osorio MD Unavailable Sergey Ramey Unavailable Jony Pruitt DPM Unavailable Gama Graves MD Unavailable [phone] Reason for Visit * Reason Onset Date Comments Results 10/04/2022 Encounter Details Date Type Department Care Team (Late st Contact Info) Description 10/04/2022 Telephone [facility] Medical Group Multispecialty Care - [address] [place] [address] Demetrio Shore MD Results Social History Tobacco [...] suspected to have Coronavirus/COVID-19? No / Unsure 10/03/2022 9:45 AM CLINICAL ASSISTANT documented as of this encounter Progress Notes * Zoraida Reddy MA - 10/04/2022 9:02 AM CST Called and informed pt of her lab results below. Pt verbalized understanding Her A1c has been stable at 5.9 and is still in the prediabetic range. ??Continue lifestyle changes which includes reducing foods that are high in carbohydrates. ??Go on walks to help with staying active and to prevent diabetes. ??Avoid processed sugar. Her cholesterol levels otherwise look great and we will continue to monitor this. ??Continue Crestor 20 mg p.o. nightly. Her GFR is slightly reduced however this is expected with age, her creatinine is normal. ??Can monitor her kidney function ICAL ASSISTANT documented in this encounter Plan of Treatment Upcoming Encounters Date Type Department Care Team (Late st Contact Info) Description 11/02/2024 8:00 AM CLINICAL ASSISTANT Office Visit [facility] [address] [place] [address] Ella Hodge FNP [address] [place] [address] 01/19/2025 11:00 AM CDT Office Visit [facility] Medical Group Pulmonology Specialty Clinic - [address] [place] [address] Stanley Jim MD [address] [place] [address] 06/23/2025 8:20 AM CDT Office Visit [facility] [address] [place] [address] Ella Hodge FNP [address] [place] [address] documented as of this encounter Visit Diagnoses Not on filedocumented in this encounter Additional Health Concerns Assessment Noted Time PHQ-9 Depression Total Score: 0 01/25/20 22 8:15 AM CDT documented as of this encounter Care Teams Collar Stitcher Relationship Specialty Start Date End Date Demetrio Shore MD PCP - General FAMILY PRACTICE 11/11/19 03/29/23 Joon Lewis PA PHYSICIAN URBAN DESIGNER 05/09/21 Callie Guerrero DO Collator Hand OBGYN 06/14/21 [place] [address] [phone] GASTROENTEROLOGY 06/14/21 Sergey Ramey PA [address] [place] [address] [place] [address] PHYSICIAN URBAN DESIGNER 06/14/21 Jony Pruitt DPM [facility], [address] [place] [address] Referring Physician PODIATRY/SURGERY 06/14/21 [place] [address] [place] [address] ORTHOPAEDIC SURGERY 06/14/21 documented as of this encounter
--- OUTSIDE RECORDS SUMMARY | 2024-10-24 11:54 | XMS_ITS | Encounter Summary ---
Author Organization [facility] Address [facility]. [place], [place] [address] [place] [address] Care Team Providers Care Ski Patrol Name Role Phone Demetrio Shore MD Primary Care Pr ovider Unavailable Joon Lewis Unavailable Callie Guerrero DO Unavailable [phone] George Osorio MD Unavailable Sergey Ramey Unavailable [phone] Jony Pruitt DPM Unavailable Gama Graves MD Unavailable [phone] Encounter Details Date Type Department Care Team (Late st Contact Info) Description 10/03/2022 9:45 AM BOILER ASSISTANT OPERATOR - 10/03/2022 9:53 AM BOILER ASSISTANT OPERATOR Hospital Encounter [facility] [address] [place] [address] Demetrio Shore MD Discharge Disposition: Home or Self Care (Routine [...] Coronavirus/COVID-19? No / Unsure 10/03/2022 9:45 AM BOILER ASSISTANT OPERATOR documented as of this encounter Medications [...] TABLET BY MOUTH EVERY DAY 90 tablet 07/06/2022 2 montelukast (SINGULAIR) 10 MG tabletIndications:Ch ronic rhinitis [...] st Contact Info) Description 11/02/2024 8:00 AM BOILER ASSISTANT OPERATOR Office Visit [address] [place] [address] Ella Hodge FNP [address] [facility] [place] [address] 01/19/2025 11:00 AM CDT Office Visit [facility] [address] [place] [address] Stanley Jim MD [address] [place] [address] 06/23/2025 8:20 AM CDT Office Visit [address] [place] [address] Ella Hodge [address] [place] [address] documented as of this encounter Procedures Procedure Name Priority Date/Time Associated Diagnosis Comments HEMOGLOBIN, GLYCOSYLATED Routine 10/03/2022 9:50 AM BOILER ASSISTANT OPERATOR Prediabetes BASIC METABOLIC PANEL Routine 10/03/2022 9:50 AM BOILER ASSISTANT OPERATOR Stage 3a chronic kidney disease ([facility]/HCC HHS/HCC) Essential hypertension LIPID PANEL Routine 10/03/2022 9:50 AM BOILER ASSISTANT OPERATOR Mixed hyperlipidemia Prediabetes Essential hypertension documented in this encounter Results * (ABNORMAL) BASIC METABOLIC PANEL (10/03/2022 9:50 AM BOILER ASSISTANT OPERATOR) [facility] GLUCOSE 99 70 - 99 MG/DL 10/03/2022 10:27 AM [facility] BUN 18 7 - 18 MG/DL 10/03/2022 10:27 AM [facility] CREATININE S/P/B 1.02 0.50 - 1.20 MG/DL 10/03/2022 10:27 AM [facility] SODIUM S/P/B 141 136 - 145 MMOL/L 10/03/2022 10:27 AM [facility] POTASSIUM S/P/B 4.4 3.5 - 5.1 MMOL/L 10/03/2022 10:27 AM [facility] CHLORIDE S/P/B 105 100 - 108 MMOL/L 10/03/2022 10:27 AM [facility] CO2 28.4 21.0 - 32.0 MMOL/L 10/03/2022 10:27 AM [facility] CALCIUM S/P/B 9.3 8.5 - 10.1 MG/DL 10/03/2022 10:27 AM [facility] ANION GAP 7.6 5.0 - 15.0 MMOL/L 10/03/2022 10:27 AM [facility] BUN CREATININE RATIO 17.6 6 - 26 10/03/2022 10:27 AM [facility] GFR ESTIMATE 56(L) >90 ML/MIN/1.7 3 M2 10/03/2022 10:27 AM [facility] Comment: NOTE: eGFR is not calculated for patients <18 years of age. This is an estimated GFR calculation using the new CKD EPI creatinine equation without race and so does not require a correction factor for race. This estimated GFR should not be used for calculating drug doses. 10/03/2022 9:50 AM RUST Demetrio Shore MD LABORATORY Final Result Performing Organization Address [facility]/ZIP Co de Phone Number [facility] [address] [address] [place] [address], [place] * (ABNORMAL) HEMOGLOBIN, GLYCOSYLATED (10/03/2022 9:50 AM BOILER ASSISTANT OPERATOR) HGB A1C 5.9(H) 0.0 - 5.6 % 10/03/2022 11:07 AM BOILER ASSISTANT OPERATOR [facility] Comment: ADA GUIDELINES 2010 5.7 TO [...] AVG GLUCOSE 123 mg/dL 10/03/2022 11:07 AM BOILER ASSISTANT OPERATOR [facility] 10/03/2022 9:50 AM BOILER ASSISTANT OPERATOR Demetrio Shore MD LABORATORY Edited Result - Final Performing Organization Address [facility] Co de Phone Number [facility] [address] [facility] [place] [address], [place] * LIPID PANEL (10/03/2022 9:50 AM BOILER ASSISTANT OPERATOR) CHOLESTEROL 143 0 - 200 MG/DL 10/03/2022 10:27 AM BOILER ASSISTANT OPERATOR [facility] TRIGLYCERIDES 49 0 - 150 MG/DL 10/03/2022 10:27 AM BOILER ASSISTANT OPERATOR [facility] HDL 63 >40 MG/DL 10/03/2022 10:27 AM BOILER ASSISTANT OPERATOR [facility] LDL (CALCULATED) 70 <100 MG/DL 10/03/2022 10:27 AM BOILER ASSISTANT OPERATOR [facility] NON HDL CHOLESTEROL 80 0 - 130 MG/DL 10/03/2022 10:27 AM BOILER ASSISTANT OPERATOR [facility] Comment: NOTE: WHEN THE TRIGLYCERIDES ARE >200 mg/dL, NON HDL C IS A SECONDARY TARGET OF THERAPY, WITH A GOAL 30 mg/dL HIGHER THAN THE IDENTIFIED LDL C GOAL. CHOL/HDL RATIO 2.3 0.0 - 4.5 10/03/2022 10:27 AM [facility] VLDL CALCULATION 10 5 - 55 MG/DL 10/03/2022 10:27 AM [facility] LIPID INTERPRETATION 10/03/2022 10:27 AM [facility] Comment: NIH CONCENSUS REPORT RECOMMENDATIONS: ?ADULT ?CHILD [...] ?LDL ? >=160 ?>=130 10/03/2022 9:50 AM BOILER ASSISTANT OPERATOR Demetrio Shore MD LABORATORY Final Result [facility] [address] [facility] [place] [place] [address], documented in this encounter Visit Diagnoses Diagnosis Mixed hyperlipidemia Prediabetes Other abnormal glucose Essential hypertension Unspecified essential hypertension Stage 3a chronic kidney disease (CMS/HCC HHS/HCC) documented in this encounter Additional Health Concerns Assessment Noted Time PHQ-9 Depression Total Score: 0 01/25/20 22 8:15 AM CDT documented as of this encounter Care Teams Ski Patrol Relationship Specialty Start Date End Date Demetrio Shore MD PCP - General FAMILY PRACTICE 11/11/19 03/29/23 Joon Lewis PA PHYSICIAN SCREEN TACKER 05/09/21 Callie Guerrero DO Associate Store Director OBGYN 06/14/21 [place] [address] [phone] GASTROENTEROLOGY 06/14/21 Sergey Ramey PA [address] [place] [address] [place] [address] PHYSICIAN SCREEN TACKER 06/14/21 Jony Pruitt DPM [facility] [employer] [facility], [address] [place] [address] Referring Physician PODIATRY/SURGERY 06/14/21 [place] [address] [place] [address] ORTHOPAEDIC SURGERY 06/14/21 documented as of this encounter
--- OUTSIDE RECORDS SUMMARY | 2024-10-24 11:54 | XMS_ITS | Encounter Summary ---
Author Organization [facility] Address [facility]. [place], [place] [address] [place] [address] Care Team Providers Care Marble Carver Name Role Phone Demetrio Shore MD Primary Care Pr ovider Unavailable Joon Lewis Unavailable [phone] Callie Guerrero DO Unavailable [phone] George Osorio MD Unavailable Sergey Ramey Unavailable [phone] Jony Pruitt DPM Unavailable [phone] Gama Graves MD Unavailable [phone] Encounter Details Date Type Department Care Team (Latest Contact Info) Description 10/22/2022 Travel Social History Tobacco Use Types Packs/Day [...] Coronavirus/COVID-19? No / Unsure 10/22/2022 9:59 AM RUBBER DOWN documented as of this encounter Plan of Treatment Upcoming Encounters Date Type Department Care Team (Late st Contact Info) Description 11/02/2024 8:00 AM RUBBER DOWN Office Visit [address] [place] [address] Ella Hodge [address] [place] [address] 01/19/2025 11:00 AM CDT Office Visit [facility] [address] [place] [address] Stanley Jim MD [address] [place] [address] 06/23/2025 8:20 AM CDT Office Visit [address] [place] [address] Ella Hodge [address] [place] [address] documented as of this encounter Visit Diagnoses Not on filedocumented in this encounter Additional Health Concerns Assessment Noted Time PHQ-9 Depression Total Score: 0 01/25/20 8:15 AM CDT documented as of this encounter Care Teams Marble Carver Relationship Specialty Start Date End Date Demetrio Shore MD PCP - General FAMILY PRACTICE 11/11/19 03/29/23 Joon Lewis PA PHYSICIAN RETAIL ADVERTISING SALES MANAGER 05/09/21 Callie Guerrero DO Metal Furniture Gl[employer]ier OBGYN 06/14/21 [place] [address] [facility] [address] [place] [address] GASTROENTEROLOGY 06/14/21 Sergey Ramey PA [address] [place] [address] PHYSICIAN RETAIL ADVERTISING SALES MANAGER 06/14/21 Jony Pruitt DPM [address] [place] [address], [address] [place] [address] Referring Physician PODIATRY/SURGERY 06/14/21 [place] [address] [place] [address] ORTHOPAEDIC SURGERY 06/14/21 documented as of this encounter
--- OUTSIDE RECORDS SUMMARY | 2024-10-24 11:54 | XMS_ITS | Encounter Summary ---
Author Organization [facility] Address [facility]. [place], [place] [address] [place] [address] Care Team Providers Care Lock Up Worker Name Role Phone Demetrio Shore MD Primary Care Pr ovider Unavailable Joon Lewis Unavailable [phone] Callie Guerrero DO Unavailable [phone] George Osorio MD Unavailable Sergey Ramey Unavailable [phone] Jony Pruitt DPM Unavailable [phone] Gama Graves MD Unavailable [phone] Encounter Details Date Type Department Care Team (Latest Contact Info) Description 10/03/2022 Travel Social History Tobacco Use Types Packs/Day [...] Coronavirus/COVID-19? No / Unsure 10/03/2022 9:45 AM EVENT SPECIALIST documented as of this encounter Plan of Treatment Upcoming Encounters Date Type Department Care Team (Late st Contact Info) Description 11/02/2024 8:00 AM EVENT SPECIALIST Office Visit [address] [place] [address] Ella Hodge [address] [place] [address] 01/19/2025 11:00 AM CDT Office Visit [facility] [address] [place] [address] Stanley Jim MD [address] [place] [address] 06/23/2025 8:20 AM CDT Office Visit [address] [place] [address] Ella Hodge [address] [place] [address] documented as of this encounter Visit Diagnoses Not on filedocumented in this encounter Additional Health Concerns Assessment Noted Time PHQ-9 Depression Total Score: 0 01/25/20 8:15 AM CDT documented as of this encounter Care Teams Lock Up Worker Relationship Specialty Start Date End Date Demetrio Shore MD PCP - General FAMILY PRACTICE 11/11/19 03/29/23 Joon Lewis PA PHYSICIAN SCAFFOLDING HELPER 05/09/21 Callie Guerrero DO Topology Teacher OBGYN 06/14/21 [place] [address] [facility] [address] [place] [address] GASTROENTEROLOGY 06/14/21 Sergey Ramey PA [address] [place] [address] PHYSICIAN SCAFFOLDING HELPER 06/14/21 Jony Pruitt DPM [address] [place] [address], [address] [place] [address] Referring Physician PODIATRY/SURGERY 06/14/21 [place] [address] [place] [address] ORTHOPAEDIC SURGERY 06/14/21 documented as of this encounter
--- OUTSIDE RECORDS SUMMARY | 2024-10-24 11:54 | XMS_ITS | Encounter Summary ---
Author Organization [facility] Address [address] [facility]. [place], [place] [address] [place] [address] Care Team Providers Care Radiotelegrapher Name Role Phone Demetrio Shore MD Primary Care Pr ovider Unavailable Joon Lewis Unavailable [phone] Callie Guerrero DO Unavailable [phone] George Osorio MD Unavailable Sergey Ramey Unavailable Jony Pruitt DPM Unavailable Gama Graves MD Unavailable [phone] Reason for Visit * Reason Comments Hip Bursitis * Physical Therapy (Routine) - Closed Specialty Diagnoses / Procedures Referred By Chet t Referred To Contact PHYSICAL THERAPY / [facility] Physical Therapy Diagnoses TROCHANTERIC PAIN SYNDROME ANDREA Procedures Gama Dobbins MD [address] [facility] [address] [place] [address] Phone: tel: fax: [place] [address] [place] [address] Phone: tel: fax: Referral ID Status Reason Start Date Expiration Date Visits Re quested Visits Authorized [id number] Closed 09/05/2022 09/06/2023 99 99 Encounter Details Date Type Department Care Team (Latest Contact Info) Description 10/03/2022 9:54 AM TELEGRAPH INSPECTOR - 10/03/2022 11:59 PM TELEGRAPH INSPECTOR Hospital Encounter [facility] Therapy [address] [place] [address] Gama Graves MD [address] [facility] [address] [place] [id number] Nikolas Montanez, PT [address] [place] [address] Hip Bursitis Discharge Disposition: Home or Self [...] Coronavirus/COVID-19? No / Unsure 12/13/2022 8:49 AM TELEGRAPH INSPECTOR documented as of this encounter Medications at [...] encounter Progress Notes * DICK Ventura - 10/03/2022 10:00 AM CSTEncounter addended by: DICK Ventura on: 02/03/2023 2:48 PM Actions taken: Letter saved, Clinical Note Signed * DICK Ventura - 10/03/2022 10:00 AM CST Physical Therapy Re-evaluation Visit Diagnosis: B hip pain Trochanteric bursitis Referring Physician: Gama Graves MD Certification Period: 09/05/22-11/27/22 Current Therapy Orders: Eval and treat Next MD Visit: None at this time. Precautions: History of R ELIUD Date of Injury/Onset: Progressively getting worse over the past 2-3 months SUBJECTIVE History of Present Condition: 10/03/22 RE: Pt reports both hips are feeling much better at this time. She doesn't feel as tight and her pain has reduced as well. She says some nights she sleeps really well and other nights she gets up around 2:00 am and has a hard time going back to sleep. She hasn't pushed herself to see if shecan walk any further at this time than when she began PT. It is becoming easier for her to kneel atchurch. She says she was getting cramps in her legs when she began therapy, but that has become better recently. She has not been using Tylenol for her pain recently. She believes she has progressed 50-60% since beginning physical therapy. Pt feels her L leg is quite a bit stronger than her R at this time. IE: Pt comes to PT with complaints of B hip pain that has progressively gotten worse. She attemptedto go for a walk earlier this week and was only able to walk about .25miles before needing to stop due to increased B hip pain. She is limited with the amount of time she can stand and also struggleswith hip pain at hindu, especially with kneeling at hindu. She did not have any injections or prescription pain medication at her recent MD appt. She takes Tylenol occasionally for pain. She struggles sleeping at night due to hip pain and wakes up often. She has a history of a R ELIUD in October 2019. She had a L foot surgery in 2020 which caused pain to her R hip and she was treated by PT for R hip bursitis about 1 year ago. Past Treatment for Current Diagnosis: PT about 1 year ago Functional Deficits: Standing, sleeping, walking, participating in hindu. Prior Level of Function: No pain PAIN Current Pain Level:10/03/22 RE: 2/10 ; IE: 3/10 Lowest Pain Level:10/03/22: RE: 2/10 ; IE: 2/10 Highest Pain Level: 10/03/22 RE: 5-6/10 ; IE: 7/10 Activities that Increase Pain: standing, walking, laying down, changing position and exercise Activities that Decrease Pain: Tylenol, sitting/resting Location and Description of Pain: B hips that travel down her lateral thighs. REVIEW WITH PATIENT Medication Reviewed: Yes Patient Stated goals for Therapy: To no longer have pain. LEFS: 10/03/22 RE: 57/80 09/05/22 IE: 47/80 OBJECTIVE Gait: Pt walks into therapy without an AD. She has a lateral sway bilaterally with a R lateral leanwhen bearing weight on the R and L lateral lean with weight bearing on the L. PALPATION: Pain: 10/03/22 RE: Significant tenderness over B greater trochanter with moderate tenderness along with ITB continues to be present IE: Significant tenderness over B greater trochanter with moderate tenderness along with ITB. Flexibility: Moderate tightness in HS, ITB, piriformis, and quadriceps B Strength: HIP STRENGTH R IE 10/03/22 R RE L 10/03/22 L RE Hip flexion 3/5 3+/5 4+/5 4+/5 Hip abduction 3+/5 4+/5 3+/5 4+/5 Hip internal rotation 4+/5 4+/5 4-/5 4+/5 Hip external rotation 4+/5 4+/5 4/5 4+/5 ASSESSMENT Love Catherine presents with signs and symptoms consistent with B hip bursitis. Problem list to be addressed: -Pain in the B hips and ITB -Decreased B hip strength. -Decreased piriformis, ITB, quad and HS flexibility. -Poor posture and body mechanics. -Decreased Physical Performance and activity tolerance. -Limited functional activities of walking, sleeping, and standing. Prognosis: Patient is a good candidate for physical therapy. Good prognosis to achieve goals. EVALUATION SUMMARY: 10/03/22 RE: Pt states she has made good progress since beginning physical therapy. She notices thather L LE has made more improvement than her R LE at this time, and she feels the L LE is quite a bit stronger. She believes she has improved 50-60% since beginning physical therapy. Her LEFS score has improved from 47/80 to 57/80 indicating self-perceived improvement in LE function since initial evaluation. Her pain levels have declined slightly since she started physical therapy. Objectively, ptpresents with improved LE strength bilaterally, although deficits remain. Moderate muscular tightness remains throughout her B hamstrings, quadriceps, piriformis, and ITB. Pt would benefit from continued skilled PT 2x/week for an additional 4 weeks to continue to address remaining deficits. IE: Pt comes to PT with complaints of B hip pain that increases when laying on her hips, walking and standing. Objectively, she has significant hip weakness bilaterally with decreased flexibility in her piriformis, ITB, HS, and quadricep. She has a lateral weight shift with ambulating. She would benefit from skilled PT to improve her deficits to decrease her pain improve her quality of life. PLAN Plan to continue at 2x/week for an additional 4 weeks to achieve the above stated goals which were discussed with the patient. Treatment will include the following: Neuromuscular Re-education - 17219, Gait Training - 53062, Therapeutic Exercise - 76626, ElectricalStimulation Unattended - 99537, Ultrasound - 97004 and Manual Therapy - 45832 GOALS 1. Patient to tolerate sleeping without pain interruption to improve sleep. (PROGRESSING) Timeframe: in 4 weeks 2. Patient to have normal flexibility in her hips B. (PROGRESSING) Timeframe: by DC 3. Patient to achieve Knee/Hip/Ankle Strength: 5/5 MMT (PROGRESSING Timeframe: by DC 4. Patient to demonstrate normal active mobility without guarded movement patterns (PROGRESSING) Timeframe: by DC 5. Patient to demonstrate normal gait pattern and report no limitation with walking during ADLs (PROGRESSING) Timeframe: by DC 6. Patient to correctly demonstrate home exercises to be performed in conjunction with therapy program (MET) Timeframe: in 2 weeks 7. Patient to decrease pain complaints with ADLs to <4/10 (PROGRESSING) Timeframe: in 2 weeks 8. Patient will report significant functional improvement with ADLs (PROGRESSING) Timeframe: by DC 9. Return to previous functional status for ADLs, recreational activities, or sports activities as identified by patient (PROGRESSING) Timeframe: by DC 10. Patient to report self perceived improvements evidenced by functional outcome score of LEFS to at least 55/80 (MET) Timeframe: by DC Therapist: NIKOLAS MONTANEZ PT Date: 10/03/22 Time: 10:02 AM Physician certification: I certify that the above physical therapy services are required, authorized, and reviewed. Provider Signature: Date: Time: Gama Graves MD Patient Name: Love Catherine : 1945 GRAPH INSPECTOR documented in this encounter Plan of Treatment Upcoming Encounters Date Type Department Care Team (Late st Contact Info) Description 11/02/2024 8:00 AM TELEGRAPH INSPECTOR Office Visit [address] [place] [address] Ella Hodge [facility] [address] [place] [address] 01/19/2025 11:00 AM CDT Office Visit [facility] [address] [place] [address] Stanley Jim MD [address] [place] [address] 06/23/2025 8:20 AM CDT Office Visit [address] [place] [address] Ella Hodge [address] [place] [address] documented as of this encounter Visit Diagnoses Diagnosis Hip pain- Primary Pain in joint, pelvic region and thigh documented in this encounter Additional Health Concerns Assessment Noted Time PHQ-9 Depression Total Score: 0 01/25/20 8:15 AM CDT documented as of this encounter Care Teams Radiotelegrapher Relationship Specialty Start Date End Date Demetrio Shore MD PCP - General FAMILY PRACTICE 11/11/19 03/29/23 Joon Lewis PA PHYSICIAN DELIVERY ARCHITECT 05/09/21 Callie Guerrero DO Manager Net OBGYN 06/14/21 [place] [address] [phone] GASTROENTEROLOGY 06/14/21 Sergey Ramey PA [address] [place] [address] PHYSICIAN DELIVERY ARCHITECT 06/14/21 Jony Pruitt DPM [address] [facility], [address] [place] [address] Referring Physician PODIATRY/SURGERY 06/14/21 [place] [address] [place] [address] ORTHOPAEDIC SURGERY 06/14/21 documented as of this encounter
--- OUTSIDE RECORDS SUMMARY | 2024-10-24 11:54 | XMS_ITS | Encounter Summary ---
Author Organization [facility] Address [address] [facility]. [place], [place] [address] [place] [address] Care Team Providers Care Remote Sensing Program Manager Name Role Phone Demetrio Shore MD Primary Care Pr ovider Unavailable Joon Lewis Unavailable [phone] Callie Guerrero DO Unavailable [phone] George Osorio MD Unavailable Sergey Ramey Unavailable [phone] Jony Pruitt DPM Unavailable Gama Graves MD Unavailable [phone] Reason for Visit * Reason Comments Hip Bursitis * Physical Therapy (Routine) - Closed Specialty Diagnoses / Procedures Referred By Chet t Referred To Contact PHYSICAL THERAPY / [facility] Physical Therapy Diagnoses TROCHANTERIC PAIN SYNDROME ANDREA Procedures Gama Dobbins MD [address] [facility] [address] [place] [address] Phone: tel: fax: [place] [address] [place] [address] Phone: tel: fax: Referral ID Status Reason Start Date Expiration Date Visits Re quested Visits Authorized [id number] Closed 09/05/2022 09/06/2023 99 99 Encounter Details Date Type Department Care Team (Latest Contact Info) Description 11/07/2022 9:53 AM METER SUPERVISOR - 11/07/2022 11:59 PM METER SUPERVISOR Hospital Encounter [facility] Therapy [address] [place] [address] Gama Graves MD [address] [facility] [address] [place] [phone] [place] [address] [place], [place] [phone] Hip Bursitis Discharge Disposition: Home or Self [...] Coronavirus/COVID-19? No / Unsure 12/13/2022 8:49 AM METER SUPERVISOR documented as of this encounter Medications at [...] encounter Progress Notes * DICK Ventura - 11/07/2022 10:00 AM CSTEncounter addended by: DICK Ventuar on: 02/03/2023 2:48 PM Actions taken: Letter saved, Clinical Note Signed * DICK Ventura - 11/07/2022 10:00 AM CST Physical Therapy Re-evaluation Visit Diagnosis: B hip pain Trochanteric bursitis Referring Physician: Gama Graves MD Certification Period: 09/05/22-11/27/22 Current Therapy Orders: Eval and treat Next MD Visit: None at this time. Precautions: History of R ELIUD Date of Injury/Onset: Progressively getting worse over the past 2-3 months SUBJECTIVE History of Present Condition: 11/07/22: Pt reports she is doing much better. She reports she has progressed 80- 85% since beginningphysical therapy. She reports that when she discharges from therapy that she will need to be compliant with her exercises. She is not taking any medication for pain. She is now taking Melatonin and is able to sleep better at night until about 2:00-3:00AM. 10/03/22 RE: Pt reports both hips are [...] stand and also struggleswith hip pain at evangelical, especially with kneeling at evangelical. She did not have any injections or [...] Functional Deficits: Standing, sleeping, walking, participating in evangelical. Prior Level of Function: No pain PAIN Current Pain Level:11/07/22 RE: 0/10 ; IE: 3/10 Lowest Pain Level:11/07/22: RE: 0/10 ; IE: 2/10 Highest Pain Level: 11/07/22 RE: 5-6/10 ; IE: 7/10 Activities that Increase Pain: standing, walking, laying down, changing position and exercise Activities that Decrease Pain: sitting/resting Location and Description of Pain: B hips that travel down her lateral thighs. REVIEW WITH PATIENT Medication Reviewed: Yes Patient Stated goals for Therapy: To no longer have pain. LEFS: 10/03/22 RE: 57/80 09/05/22 IE: 47/80 11/07/22: 62/80 OBJECTIVE Gait: Pt walks into therapy without an AD. She has minimal lateral sway bilaterally with a R lateral lean when bearing weight on the R and L lateral lean with weight bearing on the L. PALPATION: Pain: 11/07/22: Moderate tenderness over B greater trochanter with moderate tenderness along with ITB continues to be present IE: Significant tenderness over B greater trochanter with moderate tenderness along with ITB. Flexibility: Mild tightness in HS, piriformis, and quadriceps B Strength: HIP STRENGTH R IE 11/07/22 R RE L IE 11/07/22 L RE Hip flexion 3/5 4+/5 4+/5 5/5 Hip abduction 3+/5 3+/5 4/5 4+/5 Hip internal rotation 4+/5 5/5 4-/5 5/5 Hip external rotation 4+/5 5/5 4/5 4+/5 ASSESSMENT Love Catherine presents with [...] Good prognosis to achieve goals. EVALUATION SUMMARY: 11/07/22: Love has made excellent progress since her last PT re-evaluation and she feels she is about 80-85% better. She is independent and compliant with her home exercises. Objectively, she continues to have hip abduction weakness and mild tightness in her HS, quads, and piriformis. She plans to complete her next 3 visits that she has scheduled, then DC and continue with her HEP. 10/03/22 RE: Pt states she has made [...] quality of life. PLAN Plan to continue 2x/wk for 3 more visits, then DC and continue with her HEP. Treatment will include the following: Neuromuscular Re-education - 75301, Gait Training - 06486, Therapeutic Exercise - 97122, ElectricalStimulation Unattended - 63857, Ultrasound - 43822 and Manual Therapy - 74304 GOALS 1. Patient to tolerate sleeping without pain interruption to improve sleep. (PROGRESSING) Timeframe: in 4 weeks 2. Patient to have normal flexibility in her hips B. (PROGRESSING) Timeframe: by DC 3. Patient to achieve Knee/Hip/Ankle Strength: 5/5 MMT (PROGRESSING) Timeframe: by DC 4. Patient to demonstrate normal active mobility without guarded movement patterns (MET) Timeframe: by DC 5. Patient to demonstrate normal gait pattern and report no limitation with walking during ADLs (PROGRESSING) Timeframe: by DC 6. Patient to correctly demonstrate home exercises to be performed in conjunction with therapy program (MET) Timeframe: in 2 weeks 7. Patient to decrease pain complaints with ADLs to <4/10 (MET) Timeframe: in 2 weeks 8. Patient will report significant functional improvement with ADLs (MET) Timeframe: by DC 9. Return to previous functional status for ADLs, recreational activities, or sports activities as identified by patient (PROGRESSING) Timeframe: by DC 10. Patient to report self perceived improvements evidenced by functional outcome score of LEFS to at least 55/80 (MET) Timeframe: by DC Therapist: STEPHANIE BENITES, PT Date: 11/07/22 Time: 10:02 AM Physician certification: I certify that the above physical therapy services are required, authorized, and reviewed. Provider Signature: Date: Time: Gama Graves MD Patient Name: Love Catherine : 1945 R SUPERVISOR * Stephanie Benites, PT - 11/07/2022 10:00 AM CST Physical Therapy Visit Note: Patient Name: Love Catherine Diagnosis: Hip pain (primary encounter diagnosis) SUBJECTIVE Therapy Visit Total Approved Visits: 09/11 (eval 09/05/22; RE 11/07/22) Therapy Plan of Care: exer, ADL, manual, modalities Current Therapy Orders: 2x4 Diagnosis: B trochanteric hip bursitis Referring Provider: Dr. Star Ramos MD Visit: NA Work Status: retired Subjective Note: See re-eval completed today. Pain Current Location of Pain: B hips through ITB's OBJECTIVE Treatment provided today: Therapeutic Exercise - 23459 Number of Minutes - 56828: 45 Exercise: B piriformis stretch x5 Exercise: Seated HS stretch x5 Exercise: SL clamshells x20 B with red band Exercise: bridge with hip abduction x20 red band Exercise: HL hip abd with red band x20 Exercise: SLR Exercise: Standing side steps with band around knees Exercise: standing hip abd with band 20x B Manual Therapy - 64491 Number of Minutes - 27290: 15 Intervention: HS stretch Intervention: STM/DTM to B greater trochanter and ITB Intervention: piriformis stretch Intervention: quad stretch Modalities Timed Ultrasound Minutes - 01230: 15 Ultrasound - 68634: Frequency 1MHz, Continuous 100%, 1.5 W/cm2 Ultrasound Body Part and Patient Position: 7' to each greater trochanter Total Timed Modality Minutes: 15 Modalities Non-Timed Electrical Stimulation Unattended Minutes- G0283: 15 Electrical Stimulation Unattended - 89484/G0283: 15' premod to B hips Hot Pack - 41909: 15' post treatment with pre-mod Total Non- Timed Modality Minutes: 15 ASSESSMENT Assessment Note: See re-eval completed today. PLAN Plan Changes: Continue 2x/wk for 4 additional weeks Next Visit Plan: Progress B hip flexibility and strength as tolerated. Total Time Total Time in Minutes: 90 Timed Code Treatment Minutes : 75 R SUPERVISOR documented in this encounter Plan of Treatment Upcoming Encounters Date Type Department Care Team (Late st Contact Info) Description 11/02/2024 8:00 AM METER SUPERVISOR Office Visit [address] [place] [address] Ella Hodge FNP [address] [facility] [place] [address] 01/19/2025 11:00 AM CDT Office Visit [facility] [address] [place] [address] Stanley Jim MD [address] [place] [address] 06/23/2025 8:20 AM CDT Office Visit [address] [place] [address] Ella Hodge FNP [address] [facility] [place] [address] documented as of this encounter Visit Diagnoses Diagnosis Hip pain- Primary Pain in joint, pelvic region and thigh documented in this encounter Additional Health Concerns Assessment Noted Time PHQ-9 Depression Total Score: 0 01/25/20 22 8:15 AM CDT documented as of this encounter Care Teams Remote Sensing Program Manager Relationship Specialty Start Date End Date Demetrio Shore MD PCP - General FAMILY PRACTICE 11/11/19 03/29/23 Joon Lewis PA PHYSICIAN CHEESE COOKER 05/09/21 Callie Guerrero DO Leak Inspector OBGYN 06/14/21 [place] [address] [phone] GASTROENTEROLOGY 06/14/21 Sergey Ramey PA [address] [place] [address] PHYSICIAN CHEESE COOKER 06/14/21 Jony Pruitt DPM [address] [place] [address], [address] [place] [address] Referring Physician PODIATRY/SURGERY 06/14/21 [place] [address] [place] [address] ORTHOPAEDIC SURGERY 06/14/21 documented as of this encounter
--- OUTSIDE RECORDS SUMMARY | 2024-10-24 11:56 | XMS_ITS | Encounter Summary ---
Author Organization [facility] Address [facility]6 [facility]. [place], [place] [address] [place] [address] Care Team Providers Care Process Checker Name Role Phone Demetrio Shore MD Primary Care Pr ovider Unavailable Joon Lewis Unavailable [phone] Callie Guerrero DO Unavailable [phone] George Osorio MD Unavailable Sergey Ramey Unavailable Jony Pruitt DPM Unavailable [phone] Gama Graves MD Unavailable [phone] Reason for Visit * Physical Therapy (Routine) - Closed Specialty Diagnoses / Procedures Referred By Contac t Referred To Contact PHYSICAL THERAPY / [facility] Physical Therapy Diagnoses TROCHANTERIC PAIN SYNDROME ANDREA Procedures Gama Dobbins MD [address] [facility] [address] [place] [address] Phone: tel: fax: [place] [address] [place] [address] Phone: tel: fax: Referral ID Status Reason Start Date Expiration Date Visits Re quested Visits Authorized [id number] Closed 09/05/2022 09/06/2023 99 99 Encounter Details Date Type Department Care Team (Late st Contact Info) Description 10/01/2022 9:51 AM FISHING INSTRUCTOR - 10/01/2022 11:59 PM FISHING INSTRUCTOR Hospital Encounter [facility] Therapy [address] [place] [address] Gama Graves MD [address] [facility] [address] [place] [phone] oRsario June, [facility] [address] [place] [address] Discharge Disposition: Home or Self Care (Routine [...] Coronavirus/COVID-19? No / Unsure 10/01/2022 9:50 AM FISHING INSTRUCTOR documented as of this encounter Medications at [...] MOUTH EVERY DAY 90 tablet 07/06/2022 2 melatonin 3 MG tablet Take 3 mg by mouth nightly as needed. 2 montelukast (SINGULAIR) 10 MG tabletIndications:Ch ronic rhinitis TAKE 1 TABLET BY MOUTH EVERY DAY 90 tablet 1 08/05/2022 3 ondansetron (ZOFRAN ODT) 4 MG disintegrating tabletIndications:Na usea 1 tablet every 4-6 hours as needed for nausea/vomitin g 20 tablet 07/22/2022 2 rosuvastatin (CRESTOR) 20 MG tabletIndications:Mi xed hyperlipidemia TAKE 1 TABLET BY MOUTH EVERYDAY AT BEDTIME 90 tablet 1 05/17/2022 3 triamcinolone 0.1 % creamIndications:Bug bite, initial encounter Apply topically 3 (three) times daily. 15 g 02/19/2022 4 documented as of this encounter Progress Notes * Rosario June, REGISTERED DIETETIC TECHNICIAN - 10/01/2022 10:00 AM CST Physical Therapy Visit Note: Patient Name: Love Catherine Diagnosis: Hip pain (primary encounter diagnosis) Personal Protective Equipment PPE Used During Visit: Therapist wore medical grade mask throughout session, Patient wore mask throughout session SUBJECTIVE Therapy Visit Total Approved Visits: 03/03 (eval 09/05/22) Therapy Plan of Care: exer, ADL, manual, modalities Current Therapy Orders: 2x4 Diagnosis: B trochanteric hip bursitis Referring Provider: Dr. Star Ramos MD Visit: NA Work Status: retired Subjective Note: Pt, reports B hip pain is less today. Pain Current Location of Pain: B hips through ITB's OBJECTIVE Treatment provided today: Therapeutic Exercise - 78434 Number of Minutes - 79817: 33 Exercise: B piriformis stretch x5 Exercise: Seated HS stretch x5 Exercise: SL clamshells x20 B with red band Exercise: bridge with hip abduction x20 red band Exercise: HL hip abd with red band x20 Exercise: SLR x 15 Manual Therapy - 11437 Number of Minutes - 01677: 17 Intervention: HS stretch Intervention: STM/DTM to B greater trochanter and ITB Intervention: piriformis stretch Intervention: quad stretch Modalities Timed Ultrasound - 17115: Frequency 1MHz, Continuous 100%, 1.5 W/cm2 Ultrasound Body Part and Patient Position: 6' to each greater trochanter Modalities Non-Timed Electrical Stimulation Unattended - 51004/G0283: 15' premod to B hips Hot Pack - 96909: 15' post treatment with pre-mod Other (Comments): No pre mod this date ASSESSMENT Assessment Note: Continues to tolerate all exs. with good recall and follow through Plan to advance to standing exs. next visit. PLAN Plan Next Visit Plan: Progress B hip flexibility and strength as tolerated. Total Time Total Time in Minutes: 50 Timed Code Treatment Minutes : 50 ING INSTRUCTOR documented in this encounter Plan of Treatment Upcoming Encounters Date Type Department Care Team (Late st Contact Info) Description 11/02/2024 8:00 AM FISHING INSTRUCTOR Office Visit [facility] [address] [facility] [place] [address] Ella Hodge FNP [address] [facility] [place] [address] 01/19/2025 11:00 AM CDT Office Visit [facility] [place] [address] [facility] [place] [address] Stanley Jim MD [address] [address] 06/23/2025 8:20 AM CDT Office Visit [facility] [address] [place] [address] Ella Hodge [facility] [address] [place] [address] documented as of this encounter Visit Diagnoses Diagnosis Hip pain- Primary Pain in joint, pelvic region and thigh documented in this encounter Additional Health Concerns Assessment Noted Time PHQ-9 Depression Total Score: 0 01/25/20 8:15 AM CDT documented as of this encounter Care Teams Process Checker Relationship Specialty Start Date End Date Demetrio Shore MD PCP - General FAMILY PRACTICE 11/11/19 03/29/23 Joon Lewis PA PHYSICIAN SLAB WORKER 05/09/21 Callie Guerrero DO Dental Floss Packer OBGYN 06/14/21 [place] [address] [phone] GASTROENTEROLOGY 06/14/21 Sergey Ramey PA [address] [place] [address] [place] [address] PHYSICIAN SLAB WORKER 06/14/[address] [facility], [address] [place] [address] Referring Physician PODIATRY/SURGERY 06/14/21 [place] [address] [place] [address] ORTHOPAEDIC SURGERY 06/14/21 documented as of this encounter
--- OUTSIDE RECORDS SUMMARY | 2024-10-24 11:56 | XMS_ITS | Encounter Summary ---
Author Organization [facility] Address Critical access hospital6 [facility]. [place], [place] [address] [place] [address] Care Team Providers Care Valet Parking Attendant Name Role Phone Demetrio Shore MD Primary Care Pr ovider Unavailable Joon Lewis Unavailable [phone] Callie Guerrero DO Unavailable [phone] George Osorio MD Unavailable Sergey Ramey Unavailable Jony Pruitt DPM Unavailable Gama Graves MD Unavailable [phone] Reason for Visit * Reason Onset Date Comments Medication Request 08/05/2022 Encounter Details Date Type Department Care Team (Late st Contact Info) Description 08/05/[address] [place] [address] Demetrio Shore MD Medication Request Social History Tobacco Use Types Packs/Day [...] suspected to have Coronavirus/COVID-19? No / Unsure 07/22/2022 12:23 PM CDT documented as of this encounter Plan of Treatment Upcoming Encounters Date Type Department Care Team (Late st Contact Info) Description 11/02/2024 8:00 AM THERAPEUTIC SALES SPECIALIST Office Visit [address] [place], [place] [address] Ella Hodge [address] [place] [address] 01/19/2025 11:00 AM CDT Office Visit [facility] Pul[facility] [address] [place] [address] Stanley Jim MD [address] [place] [address] 06/23/2025 8:20 AM CDT Office Visit [address] [place] [address] Ella Hodge [address] [place] [address] documented as of this encounter Visit Diagnoses Not on filedocumented in this encounter Additional Health Concerns Assessment Noted Time PHQ-9 Depression Total Score: 0 01/25/20 22 8:15 AM CDT documented as of this encounter Care Teams Valet Parking Attendant Relationship Specialty Start Date End Date Demetrio Shore MD PCP - General FAMILY PRACTICE 11/11/19 03/29/23 Joon Lewis PA PHYSICIAN AUTOMOBILE RACER 05/09/21 [facility] [employer] [facility] OBGYN 06/14/21 [place] [address] [address] GASTROENTEROLOGY 06/14/21 Sergey Ramey PA [address] [place] [address] PHYSICIAN AUTOMOBILE RACER 06/14/21 Jony Pruitt DPM [address] [place] [address], [address] [place] [address] Referring Physician PODIATRY/SURGERY 06/14/21 [place] [address] [place] [address] ORTHOPAEDIC SURGERY 06/14/21 documented as of this encounter
--- OUTSIDE RECORDS SUMMARY | 2024-10-24 11:56 | XMS_ITS | Encounter Summary ---
Author Organization [facility] Address Counts include 234 beds at the [facility]6 [facility]. [place], [place] [address] [place] [address] Care Team Providers Care Locomotive Repairer Diesel Name Role Phone Demetrio Shore MD Primary Care Pr ovider Unavailable Joon Lewis Unavailable [phone] Callie Guerrero DO Unavailable [phone] George Osorio MD Unavailable Sergey Ramey Unavailable [phone] Jony Pruitt DPM Unavailable [phone] Gama Graves MD Unavailable [phone] Encounter Details Date Type Department Care Team (Latest Contact Info) Description 07/22/2022 Travel Social History Tobacco Use Types Packs/Day [...] st Contact Info) Description 11/02/2024 8:00 AM TRACER BULLET SECTION SUPERVISOR Office Visit [address] [place] [address] Ella Hodge [facility] 201 [facility] [place] [address] 01/19/2025 11:00 AM CDT Office Visit [facility] Pul[facility] [address] [place] [address] Stanley Jim MD [address] [place] [address] 06/23/2025 8:20 AM CDT Office Visit [address] [place] [address] Ella Hodge [address] [place] [address] documented as of this encounter Visit Diagnoses Not on filedocumented in this encounter Additional Health Concerns Infection Onset Date Last Indicated Resolved Time COVID-19 Rule Out 07/22/2022 07/23/2022 07/23/2022 6:54 PM CDT Assessment Noted Time PHQ-9 Depression Total Score: 0 01/25/20 8:15 AM CDT documented as of this encounter Care Teams Locomotive Repairer Diesel Relationship Specialty Start Date End Date Demetrio Shore MD PCP - General FAMILY PRACTICE 11/11/19 03/29/23 Joon Lewis PA PHYSICIAN FURNACE CHARGER 05/09/21 Jeri Guerrerodemarcus Forensic Photographer OBGYN 06/14/21 [place] [address] [phone] GASTROENTEROLOGY 06/14/21 Sergey Ramey PA [address] [place] [address] PHYSICIAN FURNACE CHARGER 06/14/21 Jony Pruitt, DPM [address] [place] [address], [address] [place] [address] Referring Physician PODIATRY/SURGERY 06/14/21 [place] [address] [place] [address] ORTHOPAEDIC SURGERY 06/14/21 documented as of this encounter
--- OUTSIDE RECORDS SUMMARY | 2024-10-24 11:56 | XMS_ITS | Encounter Summary ---
Author Organization [facility] Address [facility]6 [facility]. [place], [place] [address] [place] [address] Care Team Providers Care Train Engineer Name Role Phone Demetrio Shore MD Primary Care Pr ovider Unavailable Joon Lewis Unavailable [phone] Callie Guerrero DO Unavailable [phone] George Osorio MD Unavailable Sergey Ramey Unavailable [phone] Jony Pruitt DPM Unavailable [phone] Gama Graves MD Unavailable [phone] Encounter Details Date Type Department Care Team (Latest Contact Info) Description 09/11/2022 Scan HEALTH INFO SRVCS Scanned, Doc Med [...] suspected to have Coronavirus/COVID-19? No / Unsure 09/20/2022 10:52 AM SPECIAL NEEDS BUS DRIVER documented as of this encounter Plan of Treatment Upcoming Encounters Date Type Department Care Team (Late st Contact Info) Description 11/02/2024 8:00 AM SPECIAL NEEDS BUS DRIVER Office Visit [address] [place] [address] Ella Hodge [address] [place] [address] 01/19/2025 11:00 AM CDT Office Visit [facility] Pul[facility] [address] [place] [address] Stanley Jim MD [address] [place] [address] 06/23/2025 8:20 AM CDT Office Visit [address] [place] [address] Ella Hodge [address] [place] [address] documented as of this encounter Visit Diagnoses Not on filedocumented in this encounter Additional Health Concerns Assessment Noted Time PHQ-9 Depression Total Score: 0 01/25/20 22 8:15 AM CDT documented as of this encounter Care Teams Train Engineer Relationship Specialty Start Date End Date Demetrio Shore MD PCP - General FAMILY PRACTICE 11/11/19 03/29/23 Joon Lewis PA PHYSICIAN HEAD HOLDER 05/09/21 Callie Guerrero DO Coal Deliverer OBGYN 06/14/21 [place] [address] [address] [facility] [address] [place] [address] GASTROENTEROLOGY 06/14/21 Sergey Ramey PA [address] [place] [address] PHYSICIAN HEAD HOLDER 06/14/21 Jony Pruitt DPM [address] [place] [address], [address] [place] [address] Referring Physician PODIATRY/SURGERY 06/14/21 [place] [address] [place] [address] ORTHOPAEDIC SURGERY 06/14/21 documented as of this encounter
--- OUTSIDE RECORDS SUMMARY | 2024-10-24 11:56 | XMS_ITS | Encounter Summary ---
Author Organization [facility] Address [facility] [place], [place] [address] [place] [address] Care Team Providers Care Target Worker Name Role Phone Demetrio Shore MD Primary Care Pr ovider Unavailable Joon Lewis Unavailable Callie Guerrero DO Unavailable [phone] George Osorio MD Unavailable Sergey Ramey Unavailable [phone] Jony Pruitt DPM Unavailable [phone] Gama Graves MD Unavailable [phone] Encounter Details Date Type Department Care Team (Latest Contact Info) Description 10/14/2021 Travel Social History Tobacco Use Types Packs/Day [...] please move on to questions 3-9 0 07/16/2021 Comments No Sex and Gender Information Value Date Recorded Sex Assigned at Not on file Legal Sex Female 5:51 PM CDT Gender Identity Not on file Sexual Orientation Not on file COVID-19 Exposure Response Date Recorded In the last month, have you been in contact with someone who was confirmed or suspected to have Coronavirus / COVID-19? Yes 10/14/2021 3:44 PM WELDER PRODUCTION LINE COMBINATION documented as of this encounter Plan of Treatment Upcoming Encounters Date Type Department Care Team (Late st Contact Info) Description 11/02/2024 8:00 AM WELDER PRODUCTION LINE COMBINATION Office Visit [address] [place] [address] Ella Hodge [facility] 201 [facility] [place] [address] 01/19/2025 11:00 AM CDT Office Visit [facility] [address] [place] [address] Stanley Jim MD [address] [place] [address] 06/23/2025 8:20 AM CDT Office Visit [address] [place] [address] Ella Hodge [address] [place] [address] documented as of this encounter Visit Diagnoses Not on filedocumented in this encounter Additional Health Concerns Infection Onset Date Last Indicated Resolved Time COVID-19 Confirmed 10/04/2021 10/04/2021 12:32 AM WELDER PRODUCTION LINE COMBINATION Assessment Noted Time PHQ-9 Depression Total Score: 0 07/16/20 21 10:32 AM CDT documented as of this encounter Care Teams Target Worker Relationship Specialty Start Date End Date Demetrio Shore MD PCP - General FAMILY PRACTICE 11/11/19 03/29/23 Joon Lewis PA PHYSICIAN PASTRY MIXER 05/09/21 Cesar CallieDO betsy Cnc Machine Setter OBGYN 06/14/21 [place] [address] [facility] [address] [place] [address] GASTROENTEROLOGY 06/14/21 Sergey Ramey PA [address] [place] [address] PHYSICIAN PASTRY MIXER 06/14/21 Jony Pruitt, DPM [address] [place] [address], [address] [place] [address] Referring Physician PODIATRY/SURGERY 06/14/21 [place] [address] [place] [address] ORTHOPAEDIC SURGERY 06/14/21 documented as of this encounter
--- OUTSIDE RECORDS SUMMARY | 2024-10-24 11:56 | XMS_ITS | Encounter Summary ---
Author Organization [facility] Address [facility]. [place], [place] [address] [place] [address] Care Team Providers Care Railroad Firer Name Role Phone Demetrio Shore MD Primary Care Pr ovider Unavailable Joon Lewis Unavailable [phone] Callie Guerrero DO Unavailable [phone] George Osorio MD Unavailable Sergey Ramey Unavailable [phone] Jony Pruitt DPM Unavailable [phone] Gama Graves MD Unavailable [phone] Encounter Details Date Type Department Care Team (Latest Contact Info) Description 02/19/2022 Travel Social History Tobacco Use Types Packs/Day [...] please move on to questions 3-9 0 02/19/2022 Comments No Sex and Gender Information Value Date Recorded Sex Assigned at Not on file Legal Sex Female 5:51 PM CDT Gender Identity Not on file Sexual Orientation Not on file COVID-19 Exposure Response Date Recorded In the last 10 days, have yo u been in contact with someone who was confirmed or suspected to have Coronavirus/COVID-19? No / Unsure 02/19/2022 8:00 AM CDT documented as of this encounter Plan of Treatment Upcoming Encounters Date Type Department Care Team (Late st Contact Info) Description 11/02/2024 8:00 AM COFFEE BREAK ATTENDANT Office Visit [address] [place] [address] Ella Hodge [address] [place] [address] 01/19/2025 11:00 AM CDT Office Visit [facility] [address] [place] [address] Stanley Jim MD [address] [place] [address] 06/23/2025 8:20 AM CDT Office Visit [address] [place] [address] Ella Hodge [address] [place] [address] documented as of this encounter Visit Diagnoses Not on filedocumented in this encounter Additional Health Concerns Assessment Noted Time PHQ-9 Depression Total Score: 0 01/25/20 8:15 AM CDT documented as of this encounter Care Teams Railroad Firer Relationship Specialty Start Date End Date Demetrio Shore MD PCP - General FAMILY PRACTICE 11/11/19 03/29/23 Joon Lewis PA PHYSICIAN PRECISION DANCER 05/09/21 Callie Guerrero DO Barber Apprentice OBGYN 06/14/21 [place] [address] [facility] 101 [place] [address] GASTROENTEROLOGY 06/14/21 Sergey Ramey PA [address] [place] [address] PHYSICIAN PRECISION DANCER 06/14/21 Jony Pruitt DPM [address] [place] [address], [address] [place] [address] Referring Physician PODIATRY/SURGERY 06/14/21 [place] [address] [place] [address] ORTHOPAEDIC SURGERY 06/14/21 documented as of this encounter
--- OUTSIDE RECORDS SUMMARY | 2024-10-24 11:56 | XMS_ITS | Encounter Summary ---
Author Organization [facility] Address [facility] [place], [place] [address] [place] [address] Care Team Providers Care Tailing Machine Operator Name Role Phone Demetrio Shore MD Primary Care Pr ovider Unavailable Joon Lewis Unavailable [phone] Callie Guerrero DO Unavailable [phone] George Osorio MD Unavailable Sergey Ramey Unavailable [phone] Jony Pruitt DPM Unavailable Gama Graves MD Unavailable [phone] Reason for Visit * Reason Comments Decreased Appetite Fatigue Encounter Details Date Type Department Care Team (Late st Contact Info) Description 07/22/2022 12:40 PM CDT Office Visit [address] [place] [address] Demetrio Shore MD Decreased Appetite; Fatigue Social History Tobacco Use Types Packs/Day Years [...] PM CDT documented as of this encounter Last Filed Vital Signs Vital Sign Reading Time Taken Comments Blood Pressure 140/70 07/22/2022 12:32 PM CDT Pulse 84 07/22/2022 12:32 PM CDT Temperature 36.3 ??C (97.3 ??F) 07/22/2022 12:32 PM C DT Respiratory Rate 16 07/22/2022 12:32 PM CDT Oxygen Saturation 98% 07/22/2022 12:32 PM CDT Inhaled Oxygen Concentration - - Weight 66.2 kg (146 lb) 07/22/2022 12:32 PM CDT Height 152.4 cm (5') 07/22/2022 12:32 PM CDT Body Mass Index 28.51 07/22/2022 12:32 PM CDT documented in this encounter Patient Instructions * Patient Instructions* Demetrio Shore MD - 07/22/2022 12:40 PM CDT Take zofran for nausea. Rest. Increase water/fluid intake. Avoid dairy products/meat for now. Rapid covid is negative. Waiting on PCR results. [phone] [facility] phone number. documented in this encounter Progress Notes * Dequan Burnett LPN - 07/22/2022 12:40 PM CDTAddended by: DEQUAN BURNETT on: 07/22/2022 01:40 PM Modules accepted: Orders * Demetrio Shore MD - 07/22/2022 12:40 PM CDT Love Catherine is a 76-year-old female who presents today alone for evaluation of Chief Complaint Patient presents with ??? Decreased Appetite ??? Fatigue History of Present Illness: Here today for decreased appetite and fatigue -she has not been feeling well - she developed a runny nose last week and attributed it to being outside a lot last week; this hasno resolved - yesterday morning when she woke up she was having abdominal cramping and had to havea bowel movement states she had diarrhea after and the cramping subsided - had diarrhea again later that day; had 2 episodes total - today she had a bit of water stool and has since cleared - felt tired all day yesterday - has been feeling hot at night at times - not having much of an appetite - feels nauseous - coughs a bit - no sick contacts - worried she could have covid but no fevers - no sore throat or ear pain - has had diverticulitis in the past but states she usually gets LLQ pain and has not had that thistime Past Medical History: Diagnosis Date ??? Allergic [...] History Tobacco Use ??? Smoking status: Never Smoker ??? Smokeless tobacco: Never Used Vaping Use ??? Vaping Use: Never used Substance Use Topics ??? Alcohol use: No ??? Drug use: No Health Maitenance due was reviewed. Medications: Current Outpatient Medications Medication Sig Dispense Refill ??? pftmivfegv-osqgpwymzsvew-fbauczfv 50-325-40 MG tablet Take 1 tablet by [...] MOUTH EVERY DAY 90 tablet 0 ??? melatonin 3 MG tablet Take 3 mg by mouth nightly as needed. ??? MONTELUKAST 10 MG tablet TAKE 1 TABLET BY MOUTH EVERY DAY 90 tablet 1 ??? NON FORMULARY C- pap ; q hs ??? omega-3 fatty acid 1000 MG capsule Take 1,000 mg by mouth 2 (two) times daily. ??? ondansetron (ZOFRAN ODT) 4 MG disintegrating tablet 1 tablet every 4-6 hours as needed for nausea/vomiting 20 tablet 0 ??? rosuvastatin (CRESTOR) 20 MG tablet TAKE 1 TABLET BY MOUTH EVERYDAY AT BEDTIME 90 tablet 1 ??? triamcinolone 0.1 % cream Apply topically 3 (three) times daily. 15 g 0 ??? vitamin D3, cholecalciferol, 75 MCG (3000 UT) Tab tablet Take 1,000 Units by mouth daily. ??? zinc gluconate 50 MG Tab Take 1 tablet by mouth daily. No current facility-administered medications for this visit. Allergies: No Known Allergies Review of Systems: An appropriate review of systems was conducted with the pertinent positives and negatives as noted above in the HPI also including: Review of Systems Respiratory: Negative for shortness of breath. Cardiovascular: Negative for chest pain and palpitations. Gastrointestinal: Negative for vomiting. Objective / Physical Exam: Filed Vitals: 07/22/22 1232 BP: (!) 140/70 Pulse: 84 Resp: 16 Temp: 97.3 ??F (36.3 ??C) TempSrc: Tympanic SpO2: 98% Weight: 66.2 kg (146 lb) Height: 5' (1.524 m) Body mass index is 28.51 kg/m??. Physical Exam Vitals reviewed. Constitutional: General: She is not in acute distress. Appearance: Normal appearance. She is well-developed. She is not ill-appearing, toxic-appearing or diaphoretic. HENT: Head: Normocephalic and atraumatic. Mouth/Throat: Oropharynx is clear and moist. Eyes: General: Right eye: No discharge. Left eye: No discharge. Extraocular Movements: Extraocular movements intact. Conjunctiva/sclera: Conjunctivae normal. Neck: Vascular: No JVD. Cardiovascular: Rate and Rhythm: Normal rate and [...] No results found for this visit on 07/22/22. Assessment/Plan: 1. Nausea ondansetron (ZOFRAN ODT) 4 MG disintegrating tablet 2. Diarrhea, unspecified type CORONAVIRUS (COVID-19) ANTIGEN 3. Other fatigue - since yesterday she has been having some diarrhea, felt nauseous, and very tired; felt hot and cold over night, but no fever - testing for COVID - sent zofran to her pharmacy - could be a viral GI issue; advised about following a bland diet; increase water intake and rest Followup Plan: Return if symptoms worsen or fail to improve. Instructions on the sign/symptoms of worsening problems [...] to the patient's verbalized satisfaction. Patient Instructions Take zofran for nausea. Rest. Increase water/fluid intake. Avoid dairy products/meat for now. Rapid covid is negative. Waiting on PCR results. [phone] [facility] office phone number. Demetrio Shore MD Family Medicine [facility] documented in this encounter Plan of Treatment Upcoming Encounters Date Type Department Care Team (Late st Contact Info) Description 11/02/2024 8:00 AM TELEPHONE SEX WORKER Office Visit [address] [place] [address] Ella Hodge [address] [place] [address] 01/19/2025 11:00 AM CDT Office Visit [facility] [address] [place] [address] Stanley Jim MD [address] [place] [address] 06/23/2025 8:20 AM CDT Office Visit [address] [place] [address] Ella Hodge [address] [place] [address] documented as of this encounter Procedures Procedure Name Priority Date/Time Associated Diagnosis Comments CORONAVIRUS (COVID-19) ANTIGEN Routine 07/22/2022 Diarrhea, unspecified type documented in this encounter Results * CORONAVIRUS (COVID 19) PCR ([facility]) (07/22/2022 1:40 PM CDT) SPEC DESCRIPTION NASAL 07/23/20 2:56 PM CDT [facility] CORONAVIRUS SARS COV 2 PCR (RESP) NEGATIVE NEGATIVE 07/23/2022 6:53 PM CDT [facility] Comment: THE SARS-CoV-2 TEST HAS BEEN AUTHORIZED BY THE FDA UNDER AN EUA FOR USE BY AUTHORIZED LABORATORIES. PERFORMED BY NUCLEIC ACID AMPLIFICATION PCR FIRST TEST UNKNOWN 07/23/2022 2:56 PM CDT [facility] EMPLOYED IN HEALTHCARE NO 07/23/2022 2:56 PM CDT [facility] SYMPTOMATIC DEFINED BY CDC UNKNOWN 07/23/2022 2:56 PM CDT [facility] HOSPITALIZATION STATUS NO 07/23/2022 2:56 PM CDT [facility] PATIENT IN ICU NO 07/23/2022 2:56 PM CDT [facility] RESIDENT OF [facility] NO 07/23/2022 2:56 PM CDT [facility] NASOPHARYNGEAL SWAB / Unknown 07/22/2022 1:40 PM CDT Demetrio Shore MD MICROBIOLOGY - G ENERAL ORDERABLES Final Result [facility] [address] [place] [address], [place] [phone] * CORONAVIRUS (COVID-19) ANTIGEN (07/22/2022) CORONAVIRUS ANTIGEN [place] NEGATIVE NEGATIVE [facility] ([facility]), [place] Internal Control: VALID VALID [facility] ([address]), [place] NASAL NASAL STRUCTURE / Unknown 07/22/2022 Demetrio Shore MD MICROBIOLOGY - G ENERAL ORDERABLES Final Result Performing Organization Address City/[facility]/ZIP Co de Phone Number [facility] ([address]), [address] [address], [place] [phone] documented in this encounter Visit Diagnoses Diagnosis Nausea- Primary Nausea alone Diarrhea, unspecified type Other fatigue documented in this encounter Additional Health Concerns Infection Onset Date Last Indicated Resolved Time COVID-19 Rule Out 07/22/2022 07/23/2022 07/23/2022 6:54 PM CDT Assessment Noted Time PHQ-9 Depression Total Score: 0 01/25/20 8:15 AM CDT documented as of this encounter Care Teams Tailing Machine Operator Relationship Specialty Start Date End Date Demetrio Shore MD PCP - General FAMILY PRACTICE 11/11/19 03/29/23 Joon Lewis PA PHYSICIAN LIFT TEAM TECHNICIAN 05/09/21 Callie Guerrero DO Film And Video Editor OBGYN 06/14/21 [place] [address] [phone] GASTROENTEROLOGY 06/14/21 Sergey Ramey PA [address] [place] [address] [place] [address] PHYSICIAN LIFT TEAM TECHNICIAN 06/14/21 Jony Pruitt DPM [facility], [address] [place] [address] Referring Physician PODIATRY/SURGERY 06/14/21 [place] [address] [place] [address] ORTHOPAEDIC SURGERY 06/14/21 documented as of this encounter
--- OUTSIDE RECORDS SUMMARY | 2024-10-24 11:56 | XMS_ITS | Encounter Summary ---
Author Organization [facility] Address [facility] [place] [place], [place] [address] [place] [address] Care Team Providers Care Hospice Volunteer Coordinator Name Role Phone Demetrio Shore MD Primary Care Pr ovider Unavailable oJon Lewis Unavailable [phone] Callie Guerrero DO Unavailable [phone] George Osorio MD Unavailable Sergey Ramey Unavailable [phone] Jony Pruitt DPM Unavailable [phone] Gama Graves MD Unavailable Reason for Visit * Physical Therapy (Routine) - Closed Specialty Diagnoses / Procedures Referred By Contac t Referred To Contact PHYSICAL THERAPY / [facility] Physical Therapy Diagnoses TROCHANTERIC PAIN SYNDROME ANDREA Procedures Gama Dobbins MD [address] [facility] [address] [place] [address] Phone: tel: fax: [place] [address] [place] [address] Phone: tel: fax: Referral ID Status Reason Start Date Expiration Date Visits Re quested Visits Authorized [id number] Closed 09/05/2022 09/06/2023 99 99 Encounter Details Date Type Department Care Team (Latest Contact Info) Description 09/20/2022 10:45 AM REGIONAL ENGAGEMENT CONSULTANT - 09/20/2022 11:59 PM REGIONAL ENGAGEMENT CONSULTANT Hospital Encounter [facility] Therapy [address] [place] [address] Gama Graves MD [address] [facility] [address] [place] [id number] Nikolas Vaca, PT [address] [place] [address] Discharge Disposition: Home or Self Care (Routine [...] Coronavirus/COVID-19? No / Unsure 09/20/2022 10:52 AM REGIONAL ENGAGEMENT CONSULTANT documented as of this encounter Medications at [...] Progress Notes * Nikolas Vaca, PT - 09/20/2022 10:45 AM CST Physical Therapy Visit Note: Patient Name: Love Catherine Diagnosis: Hip pain (primary encounter diagnosis) Personal Protective Equipment PPE Used During Visit: Therapist wore medical grade mask throughout session, Patient wore mask throughout session SUBJECTIVE Therapy Visit Total Approved Visits: 02/01 (eval 09/05/22) Therapy Plan of Care: exer, ADL, manual, modalities Current Therapy Orders: 2x4 Diagnosis: B trochanteric hip bursitis Referring Provider: Dr. Star Ramos MD Visit: NA Work Status: retired Subjective Note: Pt says she is improving and feels like everything is loosening up. She is not having as muchpain unless she rubs near the greater trochanters. Pain Current Location of Pain: B hips through ITB's Current Pain Level: 2 OBJECTIVE Treatment provided today: Therapeutic Exercise - 77116 Number of Minutes - 63434: 30 Exercise: B piriformis stretch x5 Exercise: Seated HS stretch x5 Exercise: SL clamshells x20 B with red band Exercise: bridge with hip abduction x20 red band Exercise: HL hip abd with red band x20 Manual Therapy - 43726 Number of Minutes - 78096: 28 Intervention: HS stretch Intervention: STM/DTM to B greater trochanter and ITB Intervention: piriformis stretch Intervention: quad stretch Modalities Timed Electrical Stimulation Attended Minutes - 26515: 12 Ultrasound - 73660: Frequency 1MHz, Continuous 100%, 1.5 W/cm2 Ultrasound Body Part and Patient Position: 6' to each greater trochanter Total Timed Modality Minutes: 12 Modalities Non-Timed Electrical Stimulation Unattended - 28220/G0283: 15' premod to B hips Hot Pack - 39260: 15' post treatment with pre-mod ASSESSMENT Assessment Note: Pt tolerated exercise well during this session. She reported stm near the L greater trochanter felt good, but she experienced some discomfort near the R greater trochanter. She reports decreased pain overall and in improvement in mobility. Ultrasound performed for comfort and session finishedwith premod and heat applied to B hips. No adverse effects noted. PLAN Plan Next Visit Plan: Progress B hip flexibility and strength as tolerated. Total Time Total Time in Minutes: 70 Timed Code Treatment Minutes : 70 ONAL ENGAGEMENT CONSULTANT documented in this encounter Plan of Treatment Upcoming Encounters Date Type Department Care Team (Late st Contact Info) Description 11/02/2024 8:00 AM REGIONAL ENGAGEMENT CONSULTANT Office Visit [address] [place] [address] Ella Hodge, [facility] [address] [facility] [place] [address] 01/19/2025 11:00 AM CDT Office Visit [facility] - [place] [address] [facility] [place] [address] Stanley Jim MD [address] [place] [address] 06/23/2025 8:20 AM CDT Office Visit [facility] [address] [facility] [place] [address] Ella Hodge, [facility] [address] [facility] [place] [address] documented as of this encounter Visit Diagnoses Diagnosis Hip pain- Primary Pain in joint, pelvic region and thigh documented in this encounter Additional Health Concerns Assessment Noted Time PHQ-9 Depression Total Score: 0 01/25/20 8:15 AM CDT documented as of this encounter Care Teams Hospice Volunteer Coordinator Relationship Specialty Start Date End Date Demetrio Shore MD PCP - General FAMILY PRACTICE 11/11/19 03/29/23 Joon Lewis PA PHYSICIAN BURRER OPERATOR 05/09/21 Callie Guerrero DO It Security Analyst OBGYN 06/14/21 [place] [address] [phone] GASTROENTEROLOGY 06/14/21 Sergey Ramey PA [address] [place] [address] [place] [address] PHYSICIAN BURRER OPERATOR 06/14/21 Jony Pruitt DPM [address] [place] [address], [address] [place] [address] Referring Physician PODIATRY/SURGERY 06/14/21 [place] [address] [place] [address] ORTHOPAEDIC SURGERY 06/14/21 documented as of this encounter
--- OUTSIDE RECORDS SUMMARY | 2024-10-24 11:56 | XMS_ITS | Encounter Summary ---
Author Organization [facility] Address [facility]6 [facility] [place], [place] [address] [place] [address] Care Team Providers Care Electrical Panel Builder Name Role Phone Demetrio Shore MD Primary Care Pr ovider Unavailable Joon Lewis Unavailable [phone] Callie Guerrero DO Unavailable [phone] George Osorio MD Unavailable Sergey Ramey Unavailable [phone] Jony Pruitt DPM Unavailable [phone] Gama Graves MD Unavailable [phone] Encounter Details Date Type Department Care Team (Latest Contact Info) Description 09/17/2022 Travel Social History Tobacco Use Types Packs/Day [...] suspected to have Coronavirus/COVID-19? No / Unsure 09/17/2022 10:24 AM ELECTROMECHANICAL ASSEMBLER documented as of this encounter Plan of Treatment Upcoming Encounters Date Type Department Care Team (Late st Contact Info) Description 11/02/2024 8:00 AM ELECTROMECHANICAL ASSEMBLER Office Visit [address] [place] [address] Ella Hodge [address] [place] [address] 01/19/2025 11:00 AM CDT Office Visit [facility] [address] [place] [address] Stanley Jim MD [address] [place] [address] 06/23/2025 8:20 AM CDT Office Visit [address] [place] [address] Ella Hodge [address] [place] [address] documented as of this encounter Visit Diagnoses Not on filedocumented in this encounter Additional Health Concerns Assessment Noted Time PHQ-9 Depression Total Score: 0 01/25/20 8:15 AM CDT documented as of this encounter Care Teams Electrical Panel Builder Relationship Specialty Start Date End Date Demetrio Shore MD PCP - General FAMILY PRACTICE 11/11/19 03/29/23 Joon Lewis PA PHYSICIAN COMPUTERIZED MILL MILL RECORDER 05/09/21 Callie Guerrero DO Tar Heat Exchanger Cleaner OBGYN 06/14/21 [place] [address] [facility] [address] [place] [address] GASTROENTEROLOGY 06/14/21 Sergey Ramey PA [address] [place] [address] PHYSICIAN COMPUTERIZED MILL MILL RECORDER 06/14/21 Jony Pruitt DPM [address] [place] [address], [address] [place] [address] Referring Physician PODIATRY/SURGERY 06/14/21 [place] [address] [place] [address] ORTHOPAEDIC SURGERY 06/14/21 documented as of this encounter
--- OUTSIDE RECORDS SUMMARY | 2024-10-24 11:56 | XMS_ITS | Encounter Summary ---
Author Organization [facility] Address [facility]. [place], [place] [address] [place] [address] Care Team Providers Care Call Center Operations Manager Name Role Phone Demetrio Shore MD Primary Care Pr ovider Unavailable Joon Lewis Unavailable [phone] Callie Guerrero DO Unavailable [phone] George Osorio MD Unavailable Sergey Ramey Unavailable [phone] Jony Pruitt DPM Unavailable [phone] Gama Graves MD Unavailable [phone] Encounter Details Date Type Department Care Team (Latest Contact Info) Description 10/08/2021 Travel Social History Tobacco Use Types Packs/Day [...] suspected to have Coronavirus / COVID-19? Yes 10/08/2021 1:23 PM FUR BUYER documented as of this encounter Plan of Treatment Upcoming Encounters Date Type Department Care Team (Late st Contact Info) Description 11/02/2024 8:00 AM FUR BUYER Office Visit [address] [place] [address] Ella Hodge [facility] 201 [facility] [place] [address] 01/19/2025 11:00 AM CDT Office Visit [facility] [address] [place] [address] Stanley Jim MD [address] [place] [address] 06/23/2025 8:20 AM CDT Office Visit [address] [place] [address] Ella Hodge [address] [place] [address] documented as of this encounter Visit Diagnoses Not on filedocumented in this encounter Additional Health Concerns Infection Onset Date Last Indicated Resolved Time COVID-19 Confirmed 10/04/2021 10/04/2021 12:32 AM FUR BUYER Assessment Noted Time PHQ-9 Depression Total Score: 0 07/16/20 21 10:32 AM CDT documented as of this encounter Care Teams Call Center Operations Manager Relationship Specialty Start Date End Date Demetrio Shore MD PCP - General FAMILY PRACTICE 11/11/19 03/29/23 Joon Lewis PA PHYSICIAN SAP SOLUTION MANAGER CONSULTANT 05/09/21 Cesar CallieDO [employer] Sky Show Technician OBGYN 06/14/21 [place] [address] [facility] [address] [place] [address] GASTROENTEROLOGY 06/14/21 Sergey Ramey PA [address] [place] [address] PHYSICIAN SAP SOLUTION MANAGER CONSULTANT 06/14/21 Jony Pruitt, DPM [address] [place] [address], [address] [place] [address] Referring Physician PODIATRY/SURGERY 06/14/21 [place] [address] [place] [address] ORTHOPAEDIC SURGERY 06/14/21 documented as of this encounter
--- OUTSIDE RECORDS SUMMARY | 2024-10-24 11:56 | XMS_ITS | Encounter Summary ---
Author Organization [facility] Address [facility]. [place], [place] [address] [place] [address] Care Team Providers Care Club Attendant Name Role Phone Demetrio Shore MD Primary Care Pr ovider Unavailable Joon Lewis Unavailable [phone] Callie Guerrero DO Unavailable [phone] George Osorio MD Unavailable Sergey Ramey Unavailable [phone] Jony Pruitt DPM Unavailable [phone] Gama Graves MD Unavailable [phone] Reason for Visit * Reason Comments Medication Management pt staes she is he re for f/u medication. Encounter Details Date Type Department Care Team (Late st Contact Info) Description 01/24/2022 8:00 AM CDT Office Visit [address] [place] [address] Demetrio Shore MD Medication Management (pt stabryan she is here for f/u medication.) Social History Tobacco Use Types Packs/Day Years [...] please move on to questions 3-9 0 01/24/2022 Comments No Sex and Gender Information Value Date Recorded Sex Assigned at Not on file Legal Sex Female 5:51 PM CDT Gender Identity Not on file Sexual Orientation Not on file COVID-19 Exposure Response Date Recorded In the last 10 days, have olga u been in contact with someone who was confirmed or suspected to have Coronavirus/COVID-19? No / Unsure 01/24/2022 7:47 AM CDT documented as of this encounter Last Filed Vital Signs Vital Sign Reading Time Taken Comments Blood Pressure 118/60 01/24/2022 7:56 AM CDT Pulse 76 01/24/2022 7:56 AM CDT Temperature 36.6 ??C (97.8 ??F) 01/24/2022 7:56 AM CD T Respiratory Rate 18 01/24/2022 7:56 AM CDT Oxygen Saturation - - Inhaled Oxygen Concentration - - Weight 65.8 kg (145 lb 2 oz) 01/24/2022 7:56 AM CDT Height 152.4 cm (5') 01/24/2022 7:56 AM CDT Body Mass Index 28.34 01/24/2022 7:56 AM CDT documented in this encounter Patient Instructions * Patient Instructions* Demetrio Shore MD - 01/24/2022 8:00 AM CDT I will see you back in 6 months. Please let me know if you need any refills. I will call you with the results of your labs. documented in this encounter Progress Notes * Demetrio Shore MD - 01/24/2022 8:00 AM CDT Love Catherine is a 76-year-old female who presents today alone for evaluation of Chief Complaint Patient presents with ??? Medication Management pt staes she is here for f/u medication. History of Present Illness: Here for med management: - had LEEID-19 in October 2021 - still having issues with her taste and eating because things do not taste the same to her at thistime - her had COVID-19 first and then she caught it after; besides her take she is doing well -She does not need any refills of her medications at this time -She is on lisinopril 20 mg p.o. daily for hypertension and rosuvastatin 20 mg p.o. nightly for mixed hyperlipidemia -She takes famotidine 20 mg p.o. twice daily for acid reflux -Her last lipid panel was in August 2021; total cholesterol 151, triglycerides 58, HDL 65, LDL 74 -Last CMP was in June 2021; she has CKD stage II Past Medical History: Diagnosis Date ??? Allergic [...] Outpatient Medications Medication Sig Dispense Refill ??? diurezvtaw-tbqyohgbptwox-wvnwputh 50-325-40 MG tablet Take 1 tablet by mouth every 4 (four) hours as needed. ??? Calcium Carbonate-Vitamin D (CALCIUM 500 + D OR) Organic Plant Calcium with vitamin D3 and magnesium ??? cetirizine 10 MG tablet Take 10 mg by mouth daily. ??? FAMOTIDINE 20 MG tablet TAKE 1 TABLET BY MOUTH TWICE A DAY 60 tablet 0 ??? IPRATROPIUM 0.03 % nasal spray USE 2 SPRAYS INTO EACH NOSTRIL EVERY 12 HOURS 30 mL 0 ??? LISINOPRIL 20 MG tablet TAKE 1 TABLET BY MOUTH EVERY DAY 90 tablet 0 ??? MONTELUKAST 10 MG tablet TAKE 1 TABLET BY MOUTH EVERY DAY 90 tablet 0 ??? NON FORMULARY C- pap ; q hs ??? omega-3 fatty acid 1000 MG capsule Take 1,000 mg by mouth 2 (two) times daily. ??? Propylene Glycol (SYSTANE BALANCE) 0.6 % Solution prn ??? ROSUVASTATIN 20 MG tablet TAKE 1 TABLET BY MOUTH EVERYDAY AT BEDTIME 90 tablet 1 ??? vitamin D3, cholecalciferol, 75 MCG (3000 UT) Tab tablet Take 1,000 Units by mouth daily. ??? zinc gluconate 50 MG Tab Take 1 tablet by mouth daily. ??? hypromellose 0.3 % ophthalmic gel Place into both eyes 2 (two) times daily. No current facility-administered medications for this visit. Allergies: No Known Allergies Review of Systems: An appropriate review of systems was conducted with the pertinent positives and negatives as noted above in the HPI also including: Review of Systems Constitutional: Negative for chills and fever. Respiratory: Negative for cough and shortness of breath. Cardiovascular: Negative for chest pain, palpitations and leg swelling. Gastrointestinal: Negative for abdominal pain, nausea and vomiting. Objective / Physical Exam: Filed Vitals: 01/24/22 0756 BP: 118/60 Pulse: 76 Resp: 18 Temp: 97.8 ??F (36.6 ??C) TempSrc: Tympanic Weight: 65.8 kg (145 lb 2 oz) Height: 5' (1.524 m) Body mass index is 28.34 kg/m??. Physical Exam Vitals reviewed. Constitutional: General: [...] Normal range of motion and neck supple. Right lower leg: No edema. Left lower leg: No edema. Skin: General: Skin is warm. Neurological: Mental Status: She is alert and oriented to person, place, and time. Psychiatric: Mood and Affect: Mood normal. Behavior: Behavior normal. Lab / In Office Testing / Radiograph review: No results found for this visit on 01/24/22. Assessment/Plan: 1. Mixed hyperlipidemia LIPID PANEL 2. Essential hypertension LIPID PANEL BASIC METABOLIC PANEL 3. Need for hepatitis C screening test HEPATITIS C ANTIBODY -Patient has mixed hyperlipidemia and is currently on rosuvastatin 20 mg p.o. nightly -We will recheck her lipid panel as she is fasting today -She has hypertension that is well controlled on lisinopril 20 mg p.o. daily -BMP ordered to assess her kidney function and electrolytes -She has never had hep C screening and is agreeable to have this done today -Advised that the USPSTF recommends hep C screening in all adults 18 to 79 years old Followup Plan: Return in about 6 months (around 07/26/2022) for hypertension follow-up. Instructions on the sign/symptoms of worsening problems [...] the patient's verbalized satisfaction. Patient Instructions I will see you back in 6 months. Please let me know if you need any refills. I will call you with the results of your labs. Demetrio Shore MD Family Medicine [facility] documented in this encounter Plan of Treatment Upcoming Encounters Date Type Department Care Team (Late st Contact Info) Description 11/02/2024 8:00 AM PLASTICS SCIENTIST Office Visit [address] [place] [address] Ella Hodge [facility] [address] [facility] [place], [place] [id number] 01/19/2025 11:00 AM CDT Office Visit [facility] [address] [place] [address] Stanley Jim MD [address] [address] 06/23/2025 8:20 AM CDT Office Visit [facility] [address] [place], [place] [id number] Ella Hodge [facility] [address] [facility] [id number] documented as of this encounter Results * HEPATITIS C ANTIBODY (01/24/2022 8:40 AM CDT) [facility] HEPATITIS C AB NON-REACTI VE NON-REACTI VE 01/24/2022 8:44 PM CDT [facility] 01/24/2022 8:40 AM CDT Demetrio Shore MD LABORATORY Final Result [facility] [address] [place] [address], [place] [phone] * (ABNORMAL) BASIC METABOLIC PANEL (01/24/2022 8:40 AM CDT) [facility] GLUCOSE 86 70 - 99 MG/DL 01/24/2022 12:16 PM CDT [facility] BUN 23(H) 7 - 18 MG/DL 01/24/2022 12:16 PM CDT [facility] CREATININE S/P/B 0.89 0.50 - 1.20 MG/DL 01/24/2022 12:16 PM CDT [facility] SODIUM S/P/B 140 136 - 145 MMOL/L 01/24/2022 12:16 PM CDT [facility] POTASSIUM S/P/B 4.4 3.5 - 5.1 MMOL/L 01/24/2022 12:16 PM CDT [facility] CHLORIDE S/P/B 105 100 - 108 MMOL/L 01/24/2022 12:16 PM CDT [facility] CO2 23.8 21.0 - 32.0 MMOL/L 01/24/2022 12:16 PM CDT [facility] CALCIUM S/P/B 9.4 8.5 - 10.1 MG/DL 01/24/2022 12:16 PM CDT [facility] ANION GAP 11.2 5.0 - 15.0 MMOL/L 01/24/2022 12:16 PM CDT [facility] BUN CREATININE RATIO 25.8 6 - 26 01/24/2022 12:16 PM CDT [facility] EGFR NON-AFR. AMER. 62(L) >90 ML/MIN/1.7 3 M2 01/24/2022 12:16 PM CDT [facility] EGFR AFR. AMER. 72(L) >90 ML/MIN/1.7 3 M2 01/24/2022 12:16 PM CDT [facility] Comment: NOTE: eGFR is not calculated for patients <18 years of age. This is an estimated GFR (CKD EPI) and should not be used for calculating drug doses. 01/24/2022 8:40 AM CDT us Demetrio Shore MD LABORATORY Final Result [address] [place] [address], * LIPID PANEL (01/24/2022 8:40 AM CDT) [facility] Signature CHOLESTEROL 138 0 - 200 MG/DL 01/24/2022 12:16 PM CDT [facility] TRIGLYCERIDES 61 0 - 150 MG/DL 01/24/2022 12:16 PM CDT [facility] HDL 59 >40 MG/DL 01/24/2022 12:16 PM CDT [facility] LDL (CALCULATED) 67 <100 MG/DL 01/24/2022 12:16 PM CDT [facility] NON HDL CHOLESTEROL 79 0 - 130 MG/DL 01/24/2022 12:16 PM CDT [facility] Comment: NOTE: WHEN THE TRIGLYCERIDES ARE >200 mg/dL, NON HDL C IS A SECONDARY TARGET OF THERAPY, WITH A GOAL 30 mg/dL HIGHER THAN THE IDENTIFIED LDL C GOAL. CHOL/HDL RATIO 2.3 0.0 - 4.5 01/24/2022 12:16 PM CDT [facility] VLDL CALCULATION 12 5 - 55 MG/DL 01/24/2022 12:16 PM CDT [facility] LIPID INTERPRETATION 01/24/2022 12:16 PM CDT [facility] Comment: NIH CONCENSUS REPORT RECOMMENDATIONS: ?ADULT ?CHILD ??LOW RISK: ?CHOLESTEROL ? <200 ? <170 ?TRIGLYCERIDE ?<150 ?--- ?HDL ? >=60 ?--- ?LDL ? <100 ? <110 ??BORDERLINE: ?CHOLESTEROL ? 200-239 ?? 170-199 ?TRIGLYCERIDE ?150-199 ? --- ?HDL ?40-59 ?--- ?LDL ? 100-159 ?? 110-129 ??HIGH RISK: ?CHOLESTEROL ? >=240 ?>=200 ?TRIGLYCERIDE ?>=200 ? --- ?HDL ?<40 ?--- ?LDL ? >=160 ?>=130 01/24/2022 8:40 AM CDT us Demetrio Shore MD LABORATORY Final Result Performing Organization Address [facility]/State/[facility] Co de Phone Number [address] [place] [address], documented in this encounter Visit Diagnoses Diagnosis Mixed hyperlipidemia- Primary Essential hypertension Unspecified essential hypertension Need for hepatitis C screening test Special screening examination for other specified viral diseases documented in this encounter Additional Health Concerns Assessment Noted Time PHQ-9 Depression Total Score: 0 01/25/20 22 8:15 AM CDT documented as of this encounter Care Teams Club Attendant Relationship Specialty Start Date End Date Demetrio Shore MD PCP - General FAMILY PRACTICE 11/11/19 03/29/23 Joon Lewis PA PHYSICIAN BRAKE ADJUSTER 05/09/21 Callie Guerrero DO Laborer [employer] OBGYN 06/14/21 [place] [address] [address] [facility] [address] [place] [address] GASTROENTEROLOGY 06/14/21 Sergey Ramey PA [address] [place] [address] PHYSICIAN BRAKE ADJUSTER 06/14/21 Jony Pruitt DPM [address] [place] [address], [address] [place] [address] Referring Physician PODIATRY/SURGERY 06/14/21 [place] [address] [place] [address] ORTHOPAEDIC SURGERY 06/14/21 documented as of this encounter
--- OUTSIDE RECORDS SUMMARY | 2024-10-24 11:56 | XMS_ITS | Encounter Summary ---
Author Organization [facility] Address [address] [facility]. [place], [place] [address] [place] [address] Care Team Providers Care Inspector Material Disposition Name Role Phone Demetrio Shore MD Primary Care Pr ovider Unavailable Joon Lewis Unavailable [phone] Callie Guerrero DO Unavailable [phone] George Osorio MD Unavailable Sergey Ramey Unavailable Jony Pruitt DPM Unavailable Gama Graves MD Unavailable [phone] Reason for Visit * Reason Comments Hip Pain * Physical Therapy (Routine) - Closed Specialty Diagnoses / Procedures Referred By Chet t Referred To Contact PHYSICAL THERAPY / [facility] Physical Therapy Diagnoses TROCHANTERIC PAIN SYNDROME ANDREA Procedures Gama Dobbins MD [address] [facility] [address] [place] [address] Phone: tel: fax: [place] [address] [place] [address] Phone: tel: fax: Referral ID Status Reason Start Date Expiration Date Visits Re quested Visits Authorized [id number] Closed 09/05/2022 09/06/2023 99 99 Encounter Details Date Type Department Care Team (Latest Contact Info) Description 09/12/2022 10:42 AM BOTTLE BLOWING MACHINE TENDER - 09/12/2022 11:59 PM BOTTLE BLOWING MACHINE TENDER Hospital Encounter [facility] Therapy [address] [address] Gama Graves MD [address] [facility] [address] [place] [id number] [place] [address] [place], [place] [id number] Hip Pain Discharge Disposition: Home or Self [...] suspected to have Coronavirus/COVID-19? No / Unsure 09/12/2022 10:41 AM BOTTLE BLOWING MACHINE TENDER documented as of this encounter [...] Progress Notes * Stephanie Zamora, PT - 09/12/2022 10:45 AM CST Physical Therapy Visit Note: Patient Name: Love Catherine Diagnosis: Hip pain (primary encounter diagnosis) SUBJECTIVE Therapy Visit Total Approved Visits: 12/04 (eval 09/05/22) Therapy Plan of Care: exer, ADL, manual, modalities Current Therapy Orders: 2x4 Diagnosis: B trochanteric hip bursitis Referring Provider: Dr. Star Ramos MD Visit: NA Work Status: retired Subjective Note: Pt reports that she continues to have significant soreness in both of her hips and ITB. She has been doing her exercises at home. Pain Current Location of Pain: B hips through ITB's Other (comments): 4 OBJECTIVE Treatment provided today: Therapeutic Exercise - 10909 Number of Minutes - 71921: 30 Exercise: B piriformis stretch x5 Exercise: Seated HS stretch x5 Exercise: SL clamshells x20 B with red band Exercise: bridge with hip abduction x20 red band Exercise: HL hip abd with red band x20 Manual Therapy - 50358 Number of Minutes - 33511: 30 Intervention: HS stretch Intervention: STM/DTM to B greater trochanter and ITB Intervention: piriformis stretch Intervention: quad stretch Modalities Timed Ultrasound Minutes - 49902: 10 Ultrasound - 81650: Frequency 1MHz, Continuous 100%, 1.5 W/cm2 Ultrasound Body Part and Patient Position: 5' to each greater trochanter Total Timed Modality Minutes: 10 Modalities Non-Timed Electrical Stimulation Unattended Minutes- G0283: 15 Electrical Stimulation Unattended - 56605/G0283: 15' premod to B hips Hot Pack - 99006: 15' post treatment with pre-mod Total Non- Timed Modality Minutes: 15 ASSESSMENT Assessment Note: Love tolerated treatment well. She continues to have significant hip weakness and tenderness. She has an antalgic gait pattern with R worse than left during stance phase. She would benefit from continued PT to improve her pain and quality of life further. PLAN Plan Next Visit Plan: Progress B hip flexibility and strength as tolerated. Total Time Total Time in Minutes: 85 Timed Code Treatment Minutes : 70 LE BLOWING MACHINE TENDER documented in this encounter Plan of Treatment Upcoming Encounters Date Type Department Care Team (Late st Contact Info) Description 11/02/2024 8:00 AM BOTTLE BLOWING MACHINE TENDER Office Visit [address] [place] [address] Ella Hodge [address] [place] [address] 01/19/2025 11:00 AM CDT Office Visit [facility] [place] [address] [facility] [place] [address] Stanley Jim MD [address] [place] [address] 06/23/2025 8:20 AM CDT Office Visit [facility] [address] [facility] [address] [facility] [address] [facility] [place] [address] documented as of this encounter Visit Diagnoses Diagnosis Hip pain- Primary Pain in joint, pelvic region and thigh documented in this encounter Additional Health Concerns Assessment Noted Time PHQ-9 Depression Total Score: 0 01/25/20 8:15 AM CDT documented as of this encounter Care Teams Inspector Material Disposition Relationship Specialty Start Date End Date Demetrio Shore MD PCP - General FAMILY PRACTICE 11/11/19 03/29/23 Joon Lewis PA PHYSICIAN FUNERAL SERVICE LICENSEE 05/09/21 Callie Guerrero DO Construction Plumber OBGYN 06/14/21 [place] [address] [id number] GASTROENTEROLOGY 06/14/21 Sergey Ramey PA [address] [facility] [place] [address] PHYSICIAN FUNERAL SERVICE LICENSEE 06/14/21 Jony Pruitt DPM [address] [facility], [address] [place] [address] Referring Physician PODIATRY/SURGERY 06/14/21 [place] [address] [place] [address] ORTHOPAEDIC SURGERY 06/14/21 documented as of this encounter
--- OUTSIDE RECORDS SUMMARY | 2024-10-24 11:56 | XMS_ITS | Encounter Summary ---
Author Organization [facility] Address [facility]. [place], [place] [address] [place] [address] Care Team Providers Care Matrix Bath Operator Name Role Phone Demetrio Shore MD Primary Care Pr ovider Unavailable Joon Lewis Unavailable Callie Guerrero DO Unavailable [phone] George Osorio MD Unavailable Sergey Ramey Unavailable [phone] Jony Pruitt DPM Unavailable [phone] Gama Graves MD Unavailable [phone] Encounter Details Date Type Department Care Team (Late st Contact Info) Description 01/24/2022 8:36 AM CDT - 01/24/2022 11:59 PM CDT Hospital Encounter [facility] [address] [place] [address] Demetrio Shore MD Discharge Disposition: Home or [...] AM CDT documented as of this encounter Medications at [...] Calcium with vitamin D3 and magnesium 4 FAMOTIDINE 20 MG tabletIndications:Ga stroesophageal reflux disease without esophagitis TAKE 1 TABLET BY MOUTH TWICE A DAY 60 tablet 12/31/2021 2 hypromellose 0.3 % ophthalmic gel Place into both eyes 2 (two) times daily. 4 IPRATROPIUM 0.03 % nasal sprayIndications:Art al congestion USE 2 SPRAYS INTO EACH NOSTRIL EVERY 12 HOURS 30 mL 10/22/2021 4 LISINOPRIL 20 MG tabletIndications:Es sential hypertension TAKE 1 TABLET BY MOUTH EVERY DAY 90 tablet 01/05/2022 2 MONTELUKAST 10 MG tabletIndications:Ch ronic rhinitis TAKE 1 TABLET BY MOUTH EVERY DAY 90 tablet 10/05/2021 2 Propylene Glycol (SYSTANE BALANCE) 0.6 % Solution prn 2 ROSUVASTATIN 20 MG tabletIndications:Mi xed hyperlipidemia TAKE 1 TABLET BY MOUTH EVERYDAY AT BEDTIME 90 tablet 1 12/10/2021 2 documented as of this encounter Plan of Treatment Upcoming Encounters Date Type Department Care Team (Late st Contact Info) Description 11/02/2024 8:00 AM MACHINE CRATER Office Visit [facility] [address] [place] [address] Ella Hodge [facility] [address] [facility] [place] [address] 01/19/2025 11:00 AM CDT Office Visit [facility] [address] [place] [address] Stanley Jim MD [address] [place] [address] 06/23/2025 8:20 AM CDT Office Visit [address] [place] [address] Ella Hodge [facility] [address] [facility] [place] [address] documented as of this encounter Procedures Procedure Name Priority Date/Time Associated Diagnosis Comments BASIC METABOLIC PANEL Routine 01/24/2022 8:40 AM CDT Essential hypertension LIPID PANEL Routine 01/24/2022 8:40 AM CDT Mixed hyperlipidemia Essential hypertension HEPATITIS C ANTIBODY Routine 01/24/2022 8:40 AM CDT Need for hepatitis C screening test documented in this encounter Results * HEPATITIS C ANTIBODY (01/24/2022 8:40 AM CDT) HEPATITIS C AB NON-REACTI VE NON-REACTI VE 01/24/2022 8:44 PM CDT [facility] 01/24/2022 8:40 AM CDT Demetrio Shore MD LABORATORY Final Result [facility] [address] [place] [address], * (ABNORMAL) BASIC METABOLIC PANEL (01/24/2022 8:40 AM CDT) Pathologist [facility] GLUCOSE 86 70 - 99 MG/DL 01/24/2022 12:16 PM CDT [facility] BUN 23(H) 7 - 18 MG/DL 01/24/2022 12:16 PM CDT [facility] CREATININE S/P/B 0.89 0.50 - 1.20 MG/DL 01/24/2022 12:16 PM CDT [facility] SODIUM S/P/B 140 136 - 145 MMOL/L 01/24/2022 12:16 PM CDT [facility] POTASSIUM S/P/B 4.4 3.5 - 5.1 MMOL/L 01/24/2022 12:16 PM CDT [facility] CHLORIDE S/P/B 105 100 - 108 MMOL/L 01/24/2022 12:16 PM CDT [facility] CO2 23.8 21.0 - 32.0 MMOL/L 01/24/2022 12:16 PM CDT [facility] CALCIUM S/P/B 9.4 8.5 - 10.1 MG/DL 01/24/2022 12:16 PM CDT [facility] ANION GAP 11.2 5.0 - 15.0 MMOL/L 01/24/2022 12:16 PM CDT [facility] BUN CREATININE RATIO 25.8 6 - 26 01/24/2022 12:16 PM CDT [facility] EGFR NON-AFR. AMER. 62(L) >90 ML/MIN/1.7 3 M2 01/24/2022 12:16 PM CDT [facility] EGFR AFR. AMER. 72(L) >90 ML/MIN/1.7 3 M2 01/24/2022 12:16 PM CDT [facility] Comment: NOTE: eGFR is not calculated for patients <18 years of age. This is an estimated GFR (CKD EPI) and should not be used for calculating drug doses. 01/24/2022 8:40 AM CDT Demetrio Shore MD LABORATORY Final Result [facility] [address] [facility] [place] [address], * LIPID PANEL (01/24/2022 8:40 AM CDT) [facility] CHOLESTEROL 138 0 - 200 MG/DL 01/24/2022 12:16 PM CDT [facility] TRIGLYCERIDES 61 0 - 150 MG/DL 01/24/2022 12:16 PM CDT [facility] HDL 59 >40 MG/DL 01/24/2022 12:16 PM CDT [facility] LDL (CALCULATED) 67 <100 MG/DL 01/24/2022 12:16 PM CDT [facility] NON HDL CHOLESTEROL 79 0 - 130 MG/DL 01/24/2022 12:16 PM CDT [facility] Comment: NOTE: WHEN THE TRIGLYCERIDES ARE >200 mg/dL, NON HDL C IS A SECONDARY TARGET OF THERAPY, WITH A GOAL 30 mg/dL HIGHER THAN THE IDENTIFIED LDL C GOAL. CHOL/HDL RATIO 2.3 0.0 - 4.5 01/24/2022 12:16 PM CDT [facility] VLDL CALCULATION 12 5 - 55 MG/DL 01/24/2022 12:16 PM CDT [facility] LIPID INTERPRETATION 01/24/2022 12:16 PM CDT [facility] Comment: NIH CONCENSUS REPORT RECOMMENDATIONS: ?ADULT ?CHILD [...] ? >=160 ?>=130 01/24/2022 8:40 AM CDT Demetrio Shore MD LABORATORY Final Result Performing Organization Address City/[facility]/ZIP Co de Phone Number [facility] [address] [place] [address], documented in this encounter Visit Diagnoses Diagnosis Mixed hyperlipidemia Essential hypertension Unspecified essential hypertension Need for hepatitis C screening test Special screening examination for other specified viral diseases documented in this encounter Additional Health Concerns Assessment Noted Time PHQ-9 Depression Total Score: 0 01/25/20 22 8:15 AM CDT documented as of this encounter Care Teams Matrix Bath Operator Relationship Specialty Start Date End Date Demetrio Shore MD PCP - General FAMILY PRACTICE 11/11/19 03/29/23 Joon Lewis PA PHYSICIAN CONSULTING PSYCHOLOGIST 05/09/21 Callie Guerrero DO Advertising Columnist OBGYN 06/14/21 [place] [address] [id number] GASTROENTEROLOGY 06/14/21 Sergey Ramey PA [address] [place] [address] PHYSICIAN CONSULTING PSYCHOLOGIST 06/14/21 Jony Pruitt DPM [address] [place] [address], [address] [place] [address] Referring Physician PODIATRY/SURGERY 06/14/21 [place] [address] [place] [address] ORTHOPAEDIC SURGERY 06/14/21 documented as of this encounter
--- OUTSIDE RECORDS SUMMARY | 2024-10-24 11:56 | XMS_ITS | Encounter Summary ---
Author Organization [facility] Address [facility] [place], [place] [address] [place] [address] Care Team Providers Care Superintendent Plant Name Role Phone Demetrio Shore MD Primary Care Pr ovider Unavailable Joon Lewis Unavailable [phone] Callie Guerrero DO Unavailable [phone] George Osorio MD Unavailable Sergey Ramey Unavailable [phone] Jony Pruitt DPM Unavailable [phone] Gama Graves MD Unavailable [phone] Encounter Details Date Type Department Care Team (Latest Contact Info) Description 07/31/2022 Scan HEALTH INFO SRVCS Scanned, Documents Social History Tobacco Use Types Packs/Day Years [...] st Contact Info) Description 11/02/2024 8:00 AM DIRECTOR INDUSTRIAL RELATIONS Office Visit [address] [place] [address] Ella Hodge [address] [place] [address] 01/19/2025 11:00 AM CDT Office Visit [facility] [address] [place] [address] Stanley Jim MD [address] [place] [address] 06/23/2025 8:20 AM CDT Office Visit [address] [place] [address] Ella Hodge, [address] [place] [address] documented as of this encounter Visit Diagnoses Not on filedocumented in this encounter Additional Health Concerns Assessment Noted Time PHQ-9 Depression Total Score: 0 01/25/20 8:15 AM CDT documented as of this encounter Care Teams Superintendent Plant Relationship Specialty Start Date End Date Demetrio Shore MD PCP - General FAMILY PRACTICE 11/11/19 03/29/23 Joon Lewis PA PHYSICIAN JUNIOR BUSINESS ANALYST 05/09/21 Callie Guerrero DO [place] OBGYN 06/14/21 [place] [address] [address] [place] [address] GASTROENTEROLOGY 06/14/21 Sergey Ramey PA [address] [place] [address] PHYSICIAN JUNIOR BUSINESS ANALYST 06/14/21 Jony Pruitt DPM [facility] [address] [place] [address] Referring Physician PODIATRY/SURGERY 06/14/21 [place] [address] [place] [address] ORTHOPAEDIC SURGERY 06/14/21 documented as of this encounter
--- OUTSIDE RECORDS SUMMARY | 2024-10-24 11:56 | XMS_ITS | Encounter Summary ---
Author Organization [facility] Address [address] [facility]. [place], [place] [address] [place] [address] Care Team Providers Care Project Scheduler Name Role Phone Demetrio Shore MD Primary Care Pr ovider Unavailable Joon Lewis Unavailable [phone] Callie Guerrero DO Unavailable [phone] George Osorio MD Unavailable Sergey Ramey Unavailable [phone] Jony Pruitt DPM Unavailable Gama Graves MD Unavailable [phone] Reason for Visit * Reason Comments Covid Infusion Therapy Patient presents today to receive COVID subq therapy. Encounter Details Date Type Department Care Team (Latest Contact Info) Description 10/09/2021 1:00 PM MACHINE TAPER Allied Health/Nurse Visit [facility] Family Medicine [address] [address] Covid Infusion Therapy (Patient presents today to receive COVID subq therapy.) Social History Tobacco Use Types Packs/Day Years [...] Coronavirus / COVID-19? Yes 10/14/2021 3:44 PM MACHINE TAPER documented as of this encounter Last Filed Vital Signs Vital Sign Reading Time Taken Comments Blood Pressure 132/76 10/09/2021 2:03 PM MACHINE TAPER Pulse 61 10/09/2021 2:03 PM MACHINE TAPER Temperature 36.8 ??C (98.3 ??F) 10/09/2021 2:03 PM CS T Respiratory Rate 16 10/09/2021 2:03 PM MACHINE TAPER Oxygen Saturation 98% 10/09/2021 2:03 PM MACHINE TAPER Inhaled Oxygen Concentration - - Weight - - Height - - Body Mass Index - - documented in this encounter Patient Instructions * Patient Instructions* Deborah Jones RN - 10/09/2021 1:00 PM MACHINE TAPER Images from the original note were not included. Patient Education Casirivimab and Imdevimab (cyn i RAFFI i mab & im DEV i mab) Brand Names: Regen-COV What is this drug used for? ?? It is used in certain people to treat COVID-19. ?? It is used in certain people to prevent COVID-19 after being around someone who has COVID-19. What do I need to tell my doctor BEFORE I take this drug? ?? If you are allergic to this drug; any part of this drug; or any other drugs, foods, or substances. Tell your doctor about the allergy and what signs you had. ?? If the patient is a child who weighs less than 88 lb (40 kg) or is younger than 12 years of age. This drug may interact with other drugs or health problems. Tell your doctor and pharmacist about all of your drugs (prescription or OTC, natural products, vitamins) and health problems. You must check to make sure that it is safe for you to take this drug with all of your drugs and health problems. Do not start, stop, or change the dose of any drug withoutchecking with your doctor. What are some things I need to know or do while I take this drug? ?? Tell all of your health care providers that you take this drug. This includes your doctors, nurses, pharmacists, and dentists. ?? After getting this drug, you must continue to isolate and do other things to control infection. Wear a mask, social distance, do not share personal items, clean and disinfect high touch surfaces, and wash hands often as you have been told by your doctor. ?? Worsening of COVID-19 has happened after the use of drugs like this one. Symptoms included fever, trouble breathing, fast or slow heartbeat, or feeling confused, tired, or weak. It is not known ifthis was related to the use of these drugs. If you have questions, talk with the doctor. ?? Tell your doctor if you are , plan on getting , or are breast-feeding. You will need to talk about the benefits and risks to you and the baby. What are some side effects that I need to call my doctor about right away? WARNING/CAUTION: Even though it may be rare, some people may have very bad and sometimes deadly side effects when taking a drug. Tell your doctor or get medical help right away if you have any of thefollowing signs or symptoms that may be related to a very bad side effect: ?? Signs of an allergic reaction, like rash; hives; itching; red, swollen, blistered, or peeling skin with or without fever; wheezing; tightness in the chest or throat; trouble breathing, swallowing,or talking; unusual hoarseness; or swelling of the mouth, face, lips, tongue, or throat. ?? Signs of infection where this drug was given. This includes oozing, heat, swelling, redness, or pain. ?? Bleeding where this drug is used. ?? Infusion reactions have happened during and within 24 hours after the infusion. Sometimes, thesemay be severe or life-threatening. Tell your doctor right away if you feel confused, tired, or weak. Tell your doctor right away if you have fever or chills; chest pain or pressure; fast, slow, or abnormal heartbeat; upset stomach; shortness of breath or wheezing; signs of high or low blood pressure like headache, dizziness, or passing out; throat irritation; muscle aches; swelling of your lips, face, or throat; sweating a lot; or any other bad effects during or within 24 hours after the infusion. What are some other side effects of this drug? All drugs may cause side effects. However, many people have no side effects or only have minor sideeffects. Call your doctor or get medical help if any of these side effects or any other side effects bother you or do not go away: ?? Bruising, soreness, or short-term pain where this drug was given. These are not all of the side effects that may occur. If you have questions about side effects, call your doctor. Call your doctor for medical advice about side effects. You may report side effects to your national health agency. You may report side effects to the FDA at . You may also report side effects at https://www.fda.gov/medwatch. How is this drug best taken? Use this drug as ordered by your doctor. Read all information given to you. Follow all instructionsclosely. ?? It is given as an infusion into a vein over a period of time. ?? It is given as a shot into the fatty part of the skin. ?? You will be watched closely while you receive this drug and for some time after your dose. Talk with your doctor. What do I do if I miss a dose? ?? This drug will be given in a health care setting. How do I store and/or throw out this drug? ?? This injection will be given to you in a healthcare setting. You will not store it at home. General drug facts ?? If your symptoms or health problems do not get better or if they become worse, call your doctor. ?? Do not share your drugs with others and do not take anyone else's drugs. ?? Keep all drugs in a safe place. Keep all drugs out of the reach of children and pets. ?? Throw away unused or drugs. Do not flush down a toilet or pour down a drain unless you are told to do so. Check with your pharmacist if you have questions about the best way to throw out drugs. There may be drug take-back programs in your area. ?? Some drugs may have another patient information leaflet. If you have any questions about this drug, please talk with your doctor, nurse, pharmacist, or other health care provider. ?? Some drugs may have another patient information leaflet. Check with your pharmacist. If you haveany questions about this drug, please talk with your doctor, nurse, pharmacist, or other health care provider. ?? If you think there has been an overdose, call your poison control center or get medical care right away. Be ready to tell or show what was taken, how much, and when it happened. Consumer Information Use and Disclaimer This information should not be used to decide whether or not to take this medicine or any other medicine. Only the healthcare provider has the knowledge and training to decide which medicines are right for a specific patient. This information does not endorse any medicine as safe, effective, or approved for treating any patient or health condition. This is only a brief summary of general information about this medicine. It does NOT include all information about the possible uses, directions, warnings, precautions, interactions, adverse effects, or risks that may apply to this medicine. This information is not specific medical advice and does not replace information you receive from the healthcare provider. You must talk with the healthcare provider for complete information about the risksand benefits of using this medicine. The use of this information is governed by the [employer] End User License Agreement, available at https://www.[employer]/en/solutions/ExpenseBot/about/laith. Last Reviewed Date 2021-05-28 Copyright ?? 2020 [employer]. and its affiliates and/or licensors. All rights reserved. Patient Education REGEN-COV (casirivimab and imdevimab) FDA Fact Sheet About this topic Casirivimab and Imdevimab FDA Fact Sheet: https://www.fda.gov/media/381541/download Casirivimab and Imdevimab FDA Fact Sheet (Palauan): https://www.[employer]/sites/default/files/tr bzbmfst-tidhi70-msedxdlf61-mwn-yaua-fbgny-oga-pgqciej-iiofmiy.pdf https://www.[employer] Report side effects to FDA MedWatch: www.fda.gov/medwatch CDC: https://www.cdc.gov/coronavirus/2019-ncov/be-djf-apx-sick/quarantine.html FDA: https://www.fda.gov/xpxufdnsv-eihrtdbysjfk-xej-response/teu-zrxfq-iwzcjwgncc-and -policy-framework/iigkmscgs-dnf-tyerwennycraz NIH: https://www.cfcjq18jwuitmcdmwwcnabvemy.nih.gov/ INE TAPER documented in this encounter Progress Notes * Deborah Jones RN - 10/09/2021 1:00 PM CST CASIRIVIMAB-IMDEVIMAB (REGEN -COV) was administered subcutaneously in the following sites: Site 1: Right outer aspect of upper arm Site 2: Left outer aspect of upper arm Site 3: Abdomen LLQ Site 4:Abdomen RLQ Given by DEBORAH JONES RN Patient was observed for one hour post injection and observed no signs/symptoms of adverse reaction. INE TAPER documented in this encounter Plan of Treatment Upcoming Encounters Date Type Department Care Team (Late st Contact Info) Description 11/02/2024 8:00 AM MACHINE TAPER Office Visit [address] [place] [address] Ella Hodge FNP [address] [place] [address] 01/19/2025 11:00 AM CDT Office Visit [facility] [place] [address] [place] [address] Stanley Jim MD [address] [place] [address] 06/23/2025 8:20 AM CDT Office Visit [address] [place] [address] Ella Hodge, [address] [place] [address] Scheduled Orders Name Type Priority Associated Diagnoses Orde r Schedule [M0243] INTRAVENOUS OR SUB Q INJ CASIRIVIMAB & IMDEVIMAB 1200 MG Procedures Routine COVID-19 Ordered: 10/09/2021 documented as of this encounter Visit Diagnoses Diagnosis COVID-19- Primary documented in this encounter Administered Medications Inactive Administered Medications - up to 3 most recent administrations Medication Order MAR Action Action Date Dose Rate Site casirivimab-imdevimab (REGEN-COV) 1200 (600-600) mg/10mL injection 1,200 mg 1,200 mg, Subcutaneous, Once, 1 dose, On Fri10/09/21 at 1345, For the administration of 600 mg of casirivimab and 600 mg of imdevimab (1200 mg combined total dose), gather 4 syringes and prepare for subcutaneous injections. Withdraw 2.5 mL solution per syringe into FOUR separate syringes. (For the administration of 300 mg of casirivimab and 300 mg of imdevimab (600 mg combined total dose), gather 2 syringes and prepare for subcutaneous injections. Withdraw 2.5 mL solution per syringe into TWO separate syringes.) Administer the subcutaneous injections consecutively, each at a different injection site, into the thigh, back of the upper arm, or abdomen, except for 2 inches (5 cm) around the navel. The waistline should be avoided. When administering the subcutaneous injections, it is recommended that providers use different quadrants of the abdomen or upper thighs or back of the upper arms to space apart each 2.5 mL subcutaneous injection of casirivimab and imdevimab. DO NOT inject into skin that is tender, damaged, bruised, or scarred. Clinically monitor patients after injections and observe patients for at least 1 hour.Indications:COVID-19 Given 10/09/2021 1:22 PM MACHINE TAPER 1,200 mg Other documented in this encounter Additional Health Concerns Infection Onset Date Last Indicated Resolved Time COVID-19 Confirmed 10/04/2021 10/04/2021 12:32 AM MACHINE TAPER Assessment Noted Time PHQ-9 Depression Total Score: 0 07/16/20 10:32 AM CDT documented as of this encounter Care Teams Project Scheduler Relationship Specialty Start Date End Date Demetrio Shore MD PCP - General FAMILY PRACTICE 11/11/19 03/29/23 Joon Lewis PA PHYSICIAN LOAD BLOCKER 05/09/21 Callie Guerrero DO Retail Sales Clerk OBGYN 06/14/21 [place] [address] [address] GASTROENTEROLOGY 06/14/21 Sergey Ramey PA [address] [place] [address] [place] [address] PHYSICIAN LOAD BLOCKER 06/14/21 Jony Pruitt DPM [address] [place] [address], [facility] [address] [place] [address] Referring Physician PODIATRY/SURGERY 06/14/21 [place] [address] [place] [address] ORTHOPAEDIC SURGERY 06/14/21 documented as of this encounter
--- OUTSIDE RECORDS SUMMARY | 2024-10-24 11:56 | XMS_ITS | Encounter Summary ---
Author Organization [facility] Address [facility]6 [facility]. [place], [place] [address] [place] [address] Care Team Providers Care Steam Tank Operator Name Role Phone Demetrio Shore MD Primary Care Pr ovider Unavailable Joon Lewis Unavailable [phone] Callie Guerrero DO Unavailable [phone] George Osorio MD Unavailable Sergey Ramey Unavailable [phone] Jony Pruitt DPM Unavailable [phone] Gama Graves MD Unavailable [phone] Encounter Details Date Type Department Care Team (Latest Contact Info) Description 06/06/2022 Travel Social History Tobacco Use Types Packs/Day [...] suspected to have Coronavirus/COVID-19? No / Unsure 06/06/2022 10:44 AM CDT documented as of this encounter Plan of Treatment Upcoming Encounters Date Type Department Care Team (Late st Contact Info) Description 11/02/2024 8:00 AM COMPLAINT SUPERVISOR Office Visit [address] [place] [address] Ella Hodge [facility] 201 [facility] [place] [address] 01/19/2025 11:00 AM CDT Office Visit [facility] [address] [place] [address] Stanley Jim MD [address] [place] [address] 06/23/2025 8:20 AM CDT Office Visit [address] [place] [address] Ella Hodge [address] [place] [address] documented as of this encounter Visit Diagnoses Not on filedocumented in this encounter Additional Health Concerns Assessment Noted Time PHQ-9 Depression Total Score: 0 01/25/20 8:15 AM CDT documented as of this encounter Care Teams Steam Tank Operator Relationship Specialty Start Date End Date Demetrio Shore MD PCP - General FAMILY PRACTICE 11/11/19 03/29/23 Joon Lewis PA PHYSICIAN COMPUTER SALESPERSON RETAIL 05/09/21 Callie Guerrero DO Lace Roller OBGYN 06/14/21 [place] [address] [facility] 101 [place] [address] GASTROENTEROLOGY 06/14/21 Sergey Ramey PA [address] [place] [address] PHYSICIAN COMPUTER SALESPERSON RETAIL 06/14/21 Jony Pruitt DPM [address] [place] [address], [address] [place] [address] Referring Physician PODIATRY/SURGERY 06/14/21 [place] [address] [place] [address] ORTHOPAEDIC SURGERY 06/14/21 documented as of this encounter
--- OUTSIDE RECORDS SUMMARY | 2024-10-24 11:56 | XMS_ITS | Encounter Summary ---
Author Organization [facility] Address [facility]6 [facility]. [place], [place] [address] [place] [address] Care Team Providers Care Endocrinology Nurse Name Role Phone Demetrio Shore MD Primary Care Pr ovider Unavailable Joon Lewis Unavailable [phone] Callie Guerrero DO Unavailable [phone] George Osorio MD Unavailable Sergey Ramey Unavailable [phone] Jony Pruitt DPM Unavailable [phone] Gama Graves MD Unavailable [phone] Encounter Details Date Type Department Care Team (Latest Contact Info) Description 09/20/2022 Travel Social History Tobacco Use Types Packs/Day [...] Coronavirus/COVID-19? No / Unsure 09/20/2022 10:52 AM BULLET CHARGING MACHINE OPERATOR documented as of this encounter Plan of Treatment Upcoming Encounters Date Type Department Care Team (Late st Contact Info) Description 11/02/2024 8:00 AM BULLET CHARGING MACHINE OPERATOR Office Visit [address] [place] [address] Ella Hodge [address] [place] [address] 01/19/2025 11:00 AM CDT Office Visit [facility] [address] [place] [address] Stanley Jim MD [address] [place] [address] 06/23/2025 8:20 AM CDT Office Visit [address] [place] [address] Ella Hodge [address] [place] [address] documented as of this encounter Visit Diagnoses Not on filedocumented in this encounter Additional Health Concerns Assessment Noted Time PHQ-9 Depression Total Score: 0 01/25/20 8:15 AM CDT documented as of this encounter Care Teams Endocrinology Nurse Relationship Specialty Start Date End Date Demetrio Shore MD PCP - General FAMILY PRACTICE 11/11/19 03/29/23 Joon Lewis PA PHYSICIAN BEHAVIORAL MODIFICATION ASSISTANT 05/09/21 Callie Guerrero DO Computer Operations Analyst OBGYN 06/14/21 [place] [address] [facility] 101 [place] [address] GASTROENTEROLOGY 06/14/21 Sergey Ramey PA [address] [place] [address] PHYSICIAN BEHAVIORAL MODIFICATION ASSISTANT 06/14/21 Jony Pruitt DPM [address] [place] [address], [address] [place] [address] Referring Physician PODIATRY/SURGERY 06/14/21 [place] [address] [place] [address] ORTHOPAEDIC SURGERY 06/14/21 documented as of this encounter
--- OUTSIDE RECORDS SUMMARY | 2024-10-24 11:56 | XMS_ITS | Encounter Summary ---
Author Organization [facility] Address [address] [facility]. [place], [place] [address] [place] [address] Care Team Providers Care Automation Controls Specialist Name Role Phone Demetrio Shore MD Primary Care Pr ovider Unavailable Joon Lewis Unavailable [phone] Callie Guerrero DO Unavailable [phone] George Osorio MD Unavailable Sergey Ramey Unavailable Jony Pruitt DPM Unavailable Gama Graves MD Unavailable [phone] Reason for Visit * Reason Comments Hip Pain * Physical Therapy (Routine) - Closed Specialty Diagnoses / Procedures Referred By Chet t Referred To Contact PHYSICAL THERAPY / [facility] Physical Therapy Diagnoses TROCHANTERIC PAIN SYNDROME ANDREA Procedures Gama Dobbins MD [address] [facility] [address] [place] [address] Phone: tel: fax: [place] [address] [place] [address] Phone: tel: fax: Referral ID Status Reason Start Date Expiration Date Visits Re quested Visits Authorized [id number] Closed 09/05/2022 09/06/2023 99 99 Encounter Details Date Type Department Care Team (Latest Contact Info) Description 09/17/2022 10:00 AM BEAM DYER - 09/17/2022 11:59 PM BEAM DYER Hospital Encounter [facility] Therapy [address] [place] [address] Gama Graves MD [address] [facility] [address] [place] [phone] [place] [address] [place], [place] [id number] Hip Pain Discharge Disposition: Home or Self [...] Coronavirus/COVID-19? No / Unsure 09/17/2022 10:24 AM BEAM DYER documented as of this encounter Medications at [...] Progress Notes * Stephanie Zamora, PT - 09/17/2022 10:00 AM CST Physical Therapy Visit Note: Patient Name: Love Catherine Diagnosis: Hip pain (primary encounter diagnosis) SUBJECTIVE Therapy Visit Total Approved Visits: 01/01 (eval 09/05/22) Therapy Plan of Care: exer, ADL, manual, modalities Current Therapy Orders: 2x4 Diagnosis: B trochanteric hip bursitis Referring Provider: Dr. Star Ramos MD Visit: NA Work Status: retired Subjective Note: Pt reports that her pain is improving, but is still present with the R worse than the left. Pain Current Location of Pain: B hips through ITB's Other (comments): 4 OBJECTIVE Treatment provided today: Therapeutic Exercise - 56958 Number of Minutes - 86159: 30 Exercise: B piriformis stretch x5 Exercise: Seated HS stretch x5 Exercise: SL clamshells x20 B with red band Exercise: bridge with hip abduction x20 red band Exercise: HL hip abd with red band x20 Manual Therapy - 41754 Number of Minutes - 14951: 25 Intervention: HS stretch Intervention: STM/DTM to B greater trochanter and ITB Intervention: piriformis stretch Intervention: quad stretch Modalities Timed Ultrasound Minutes - 68382: 12 Ultrasound - 48966: Frequency 1MHz, Continuous 100%, 1.5 W/cm2 Ultrasound Body Part and Patient Position: 6' to each greater trochanter Total Timed Modality Minutes: 12 Modalities Non-Timed Electrical Stimulation Unattended Minutes- G0283: 15 Electrical Stimulation Unattended - 45185/G0283: 15' premod to B hips Hot Pack - 78158: 15' post treatment with pre-mod Total Non- Timed Modality Minutes: 15 ASSESSMENT Assessment Note: Treatment focused on improving B hip flexibility and strength to decrease pain along B greater trochanter. She continues to have strength deficits and limited flexibility. She would benefit from continued PT to improve her deficits and quality of life. PLAN Plan Next Visit Plan: Progress B hip flexibility and strength as tolerated. Total Time Total Time in Minutes: 82 Timed Code Treatment Minutes : 67 DYER documented in this encounter Plan of Treatment Upcoming Encounters Date Type Department Care Team (Late st Contact Info) Description 11/02/2024 8:00 AM BEAM DYER Office Visit [address] [place], [place] [address] Ella Hodge [address] [place] [phone] 01/19/2025 11:00 AM CDT Office Visit [facility] [place] [address] [facility] [address] Stanley Jim MD [address] [address] 06/23/2025 8:20 AM CDT Office Visit [facility] [address] [place] [address] Ella Hodge [facility] [address] [place] [address] documented as of this encounter Visit Diagnoses Diagnosis Hip pain- Primary Pain in joint, pelvic region and thigh documented in this encounter Additional Health Concerns Assessment Noted Time PHQ-9 Depression Total Score: 0 01/25/20 22 8:15 AM CDT documented as of this encounter Care Teams Automation Controls Specialist Relationship Specialty Start Date End Date Demetrio Shore MD PCP - General FAMILY PRACTICE 11/11/19 03/29/23 Joon Lewis PA PHYSICIAN METEOROLOGY INSTRUCTOR 05/09/21 Callie Guerrero DO Pattern Maker Programer OBGYN 06/14/21 [place] [address] [facility] 101 [place] [address] GASTROENTEROLOGY 06/14/21 Sergey Ramey PA [address] [facility] [address] PHYSICIAN METEOROLOGY INSTRUCTOR 06/14/21 Jony Pruitt DPM [facility], [address] [place] [address] Referring Physician PODIATRY/SURGERY 06/14/21 [place] [address] [place] [address] ORTHOPAEDIC SURGERY 06/14/21 documented as of this encounter
--- OUTSIDE RECORDS SUMMARY | 2024-10-24 11:56 | XMS_ITS | Encounter Summary ---
Author Organization [facility] Address [facility]6 [facility] [place], [place] [address] [place] [address] Care Team Providers Care Supply Chain Program Manager Name Role Phone Demetrio Shore MD Primary Care Pr ovider Unavailable Joon Lewis Unavailable [phone] Callie Guerrero DO Unavailable [phone] George Osorio MD Unavailable Sergey Ramey Unavailable [phone] Jony Pruitt DPM Unavailable Gama Graves MD Unavailable [phone] Encounter Details Date Type Department Care Team (Latest Contact Info) Description 09/05/2022 Travel Social History Tobacco Use Types Packs/Day [...] suspected to have Coronavirus/COVID-19? No / Unsure 09/05/2022 11:01 AM DATA ENTRY PROCESSOR documented as of this encounter Plan of Treatment Upcoming Encounters Date Type Department Care Team (Late st Contact Info) Description 11/02/2024 8:00 AM DATA ENTRY PROCESSOR Office Visit [address] [place] [address] Ella Hodge [address] [place] [address] 01/19/2025 11:00 AM CDT Office Visit [facility] [address] [place] [address] Stanley Jim MD [address] [place] [address] 06/23/2025 8:20 AM CDT Office Visit [address] [place] [address] Ella Hodge [address] [place] [address] documented as of this encounter Visit Diagnoses Not on filedocumented in this encounter Additional Health Concerns Assessment Noted Time PHQ-9 Depression Total Score: 0 01/25/20 8:15 AM CDT documented as of this encounter Care Teams Supply Chain Program Manager Relationship Specialty Start Date End Date Demetrio Shore MD PCP - General FAMILY PRACTICE 11/11/19 03/29/23 Joon Lewis PA PHYSICIAN FIELD CROP TECHNICAL OFFICER 05/09/21 Callie Guerrero DO Photostat Operator Helper OBGYN 06/14/21 [place] [address] [facility] 101 [place] [address] GASTROENTEROLOGY 06/14/21 Sergey Ramey PA [address] [place] [address] PHYSICIAN FIELD CROP TECHNICAL OFFICER 06/14/21 Jony Pruitt DPM [address] [place] [address], [address] [place] [address] Referring Physician PODIATRY/SURGERY 06/14/21 [place] [address] [place] [address] ORTHOPAEDIC SURGERY 06/14/21 documented as of this encounter
--- OUTSIDE RECORDS SUMMARY | 2024-10-24 11:56 | XMS_ITS | Encounter Summary ---
Author Organization [facility] Address [facility]6 [facility]. [place], [place] [address] [place] [address] Care Team Providers Care Wood Carving Lathe Operator Name Role Phone Demetrio Shore MD Primary Care Pr ovider Unavailable Joon Lewis Unavailable [phone] Callie Guerrero DO Unavailable [phone] George Osorio MD Unavailable Sergey Ramey Unavailable [phone] Jony Pruitt DPM Unavailable [phone] Gama Graves MD Unavailable [phone] Encounter Details Date Type Department Care Team (Latest Contact Info) Description 09/12/2022 Travel Social History Tobacco Use Types Packs/Day [...] Coronavirus/COVID-19? No / Unsure 09/12/2022 10:41 AM INSPECTION CLERK documented as of this encounter Plan of Treatment Upcoming Encounters Date Type Department Care Team (Late st Contact Info) Description 11/02/2024 8:00 AM INSPECTION CLERK Office Visit [address] [place] [address] Ella Hodge [address] [place] [address] 01/19/2025 11:00 AM CDT Office Visit [facility] [address] [place] [address] Stanley Jim MD [address] [place] [address] 06/23/2025 8:20 AM CDT Office Visit [address] [place] [address] Ella Hodge [address] [place] [address] documented as of this encounter Visit Diagnoses Not on filedocumented in this encounter Additional Health Concerns Assessment Noted Time PHQ-9 Depression Total Score: 0 01/25/20 8:15 AM CDT documented as of this encounter Care Teams Wood Carving Lathe Operator Relationship Specialty Start Date End Date Demetrio Shore MD PCP - General FAMILY PRACTICE 11/11/19 03/29/23 Joon Lewis PA PHYSICIAN LENS SHAPER GRINDER 05/09/21 Callie Guerrero DO Hr Shared Services Consultant OBGYN 06/14/21 [place] [address] [facility] 101 [place] [address] GASTROENTEROLOGY 06/14/21 Sergey Ramey PA [address] [place] [address] PHYSICIAN LENS SHAPER GRINDER 06/14/21 Jony Pruitt DPM [address] [place] [address], [address] [place] [address] Referring Physician PODIATRY/SURGERY 06/14/21 [place] [address] [place] [address] ORTHOPAEDIC SURGERY 06/14/21 documented as of this encounter
--- OUTSIDE RECORDS SUMMARY | 2024-10-24 11:56 | XMS_ITS | Encounter Summary ---
Author Organization [facility] Address [facility]6 [facility]. [place], [place] [address] [place] [address] Care Team Providers Care Computer Systems Consultant Name Role Phone Demetrio Shore MD Primary Care Pr ovider Unavailable Joon Lewis Unavailable [phone] Callie Guerrero DO Unavailable [phone] George Osorio MD Unavailable Sergey Ramey Unavailable Jony Pruitt DPM Unavailable Gama Graves MD Unavailable [phone] Encounter Details Date Type Department Care Team (Late st Contact Info) Description 07/03/2022 10:51 AM CDT - 07/03/2022 11:59 PM CDT Hospital Encounter [facility] [address] [place] [address] Demetrio Shore MD Discharge Disposition: Home or [...] suspected to have Coronavirus/COVID-19? No / Unsure 07/03/2022 9:44 AM CDT documented as of this encounter [...] BY MOUTH TWICE A DAY 180 tablet 05/31/2022 2 hypromellose 0.3 % ophthalmic gel Place into both eyes 2 (two) times daily. 4 IPRATROPIUM 0.03 % nasal sprayIndications:Art al congestion USE 2 SPRAYS INTO EACH NOSTRIL EVERY 12 HOURS 30 mL 10/22/2021 4 LISINOPRIL 20 MG tabletIndications:Es sential hypertension TAKE 1 TABLET BY MOUTH EVERY DAY 90 tablet 04/11/2022 2 melatonin 3 MG tablet Take 3 mg by mouth nightly as needed. 2 MONTELUKAST 10 MG tabletIndications:Ch ronic rhinitis TAKE 1 TABLET BY MOUTH EVERY DAY 90 tablet 1 02/06/2022 2 rosuvastatin (CRESTOR) 20 MG tabletIndications:Mi xed hyperlipidemia TAKE 1 TABLET BY MOUTH EVERYDAY AT BEDTIME 90 tablet 1 05/17/2022 3 triamcinolone 0.1 % creamIndications:Bug bite, initial encounter Apply topically 3 (three) times daily. 15 g 02/19/2022 4 documented as of this encounter Plan of Treatment Upcoming Encounters Date Type Department Care Team (Late st Contact Info) Description 11/02/2024 8:00 AM YARN PACKER Office Visit [address] [place] [address] Ella Hodge FNP [address] [facility] [place] [address] 01/19/2025 11:00 AM CDT Office Visit [facility] [address] [place] [address] Stanley Jim MD [address] [place] [address] 06/23/2025 8:20 AM CDT Office Visit [address] [place] [address] Ella Hodge FNP [address] [place] [address] [place] [address] documented as of this encounter Procedures Procedure Name Priority Date/Time Associated Diagnosis Comments IRON SAT PANEL (IRON,IBC,%SAT) Routine 07/03/2022 10:45 AM CDT Low hemoglobin Other fatigue FERRITIN Routine 07/03/2022 10:45 AM CDT Low hemoglobin Other fatigue documented in this encounter Results * FERRITIN (07/03/2022 10:45 AM CDT) FERRITIN 113.0 8 - 388 NG/ML 07/03/2022 1:17 PM CDT [facility] 07/03/2022 10:4 5 AM CDT Demetrio Shore MD LABORATORY Final Result Performing Organization Address [facility] [address]/[facility] Co de Phone Number [facility] [address] [facility] [place] [address], * IRON SAT PANEL (IRON,IBC,%SAT) (07/03/2022 10:45 AM CDT) IRON 89 50 - 170 MCG/DL 07/03/2022 12:51 PM CDT [facility] IRON BINDING CAPACITY 293 250 - 420 MCG/DL 07/03/2022 12:51 PM CDT [facility] IRON SATURATION 30 20 - 55 % 12:51 PM CDT [facility] 07/03/2022 10:4 5 AM CDT Demetrio Shore MD LABORATORY Final Result Performing Organization Address [facility] [address]/[facility] de Phone Number [facility] [address] [facility] [address] documented in this encounter Visit Diagnoses Diagnosis Low hemoglobin Anemia, unspecified Other fatigue documented in this encounter Additional Health Concerns Assessment Noted Time PHQ-9 Depression Total Score: 0 01/25/20 22 8:15 AM CDT documented as of this encounter Care Teams Computer Systems Consultant Relationship Specialty Start Date End Date Demetrio Shore MD PCP - General FAMILY PRACTICE 11/11/19 03/29/23 Joon Lewis PA PHYSICIAN ONCOLOGY REP SPECIALIST 05/09/21 Callie Guerrero DO Child Care Attendant OBGYN 06/14/21 [place] [address] [facility] [address] [phone] GASTROENTEROLOGY 06/14/21 Sergey Ramey PA [address] [place] [address] PHYSICIAN ONCOLOGY REP SPECIALIST 06/14/21 Jony Pruitt DPM [address] [place] [address], [address] [place] [address] Referring Physician PODIATRY/SURGERY 06/14/21 [place] [address] [place] [address] ORTHOPAEDIC SURGERY 06/14/21 documented as of this encounter
--- OUTSIDE RECORDS SUMMARY | 2024-10-24 11:56 | XMS_ITS | Encounter Summary ---
Author Organization [facility] Address [address] [facility]. [place], [place] [address] [place] [address] Care Team Providers Care Financial Aid Advisor Name Role Phone Demetrio Shore MD Primary Care Pr ovider Unavailable Joon Lewis Unavailable [phone] Callie Guerrero DO Unavailable [phone] George Osorio MD Unavailable Sergey Ramey Unavailable [phone] Jony Pruitt DPM Unavailable Gama Graves MD Unavailable [phone] Encounter Details Date Type Department Care Team (Late st Contact Info) Description 07/22/2022 2:56 PM CDT - 07/22/2022 11:59 PM CDT Hospital Encounter [facility] [address] [place] [address] Demetrio Shore MD Discharge Disposition: Home or [...] PM CDT documented as of this encounter Medications [...] EVERY DAY 90 tablet 1 02/06/2022 2 ondansetron (ZOFRAN ODT) 4 MG disintegrating tabletIndications:Na [...] as of this encounter Progress Notes * Naa Barrett LPN - 07/22/2022 2:56 PM CDT Called and spoke to pt, relaying PCP message. Pt verbalized understanding. No questions or concernsat this time. documented in this encounter Plan of Treatment Upcoming Encounters Date Type Department Care Team (Late st Contact Info) Description 11/02/2024 8:00 AM TIRE DESIGN ENGINEER Office Visit [address] [place] [address] Ella Hodge FNP [address] [place] [address] 01/19/2025 11:00 AM CDT Office Visit [facility] - [place] [address] [address] Stanley Jim MD [address] [place] [address] 06/23/2025 8:20 AM CDT Office Visit [address] [place] [address] Ella Hodge FNP [address] [place] [address] documented as of this encounter Procedures Procedure Name Priority Date/Time Associated Diagnosis Comments CORONAVIRUS (COVID 19) PCR Routine 07/22/2022 1:40 PM CDT Nausea documented in this encounter Results * CORONAVIRUS (COVID 19) PCR ([facility]) (07/22/2022 1:40 PM CDT) SPEC DESCRIPTION NASAL 07/23/20 2:56 PM CDT [facility] CORONAVIRUS SARS COV 2 PCR (RESP) NEGATIVE NEGATIVE 07/23/2022 6:53 PM CDT [facility] Comment: THE SARS-CoV-2 TEST HAS BEEN AUTHORIZED BY THE FDA UNDER AN EUA FOR USE BY AUTHORIZED LABORATORIES. PERFORMED BY NUCLEIC ACID AMPLIFICATION PCR FIRST TEST UNKNOWN 07/23/2022 2:56 PM CDT [facility] EMPLOYED IN HEALTHCARE NO 07/23/2022 2:56 PM CDT [facility] SYMPTOMATIC DEFINED BY CDC UNKNOWN 07/23/2022 2:56 PM CDT [facility] HOSPITALIZATION STATUS NO 07/23/2022 2:56 PM CDT [facility] PATIENT IN ICU NO 07/23/2022 2:56 PM CDT [facility] RESIDENT OF COUNT INCLUDES THE [facility] CARE NO 07/23/2022 2:56 PM CDT [facility] NASOPHARYNGEAL SWAB / Unknown 07/22/2022 1:40 PM CDT Demetrio Shore MD MICROBIOLOGY - G ENERAL ORDERABLES Final Result [facility] [address] [place] [address], documented in this encounter Visit Diagnoses Diagnosis Nausea Nausea alone documented in this encounter Additional Health Concerns Infection Onset Date Last Indicated Resolved Time COVID-19 Rule Out 07/22/2022 07/23/2022 07/23/2022 6:54 PM CDT Assessment Noted Time PHQ-9 Depression Total Score: 0 01/25/20 8:15 AM CDT documented as of this encounter Care Teams Financial Aid Advisor Relationship Specialty Start Date End Date Demetrio Shore MD PCP - General FAMILY PRACTICE 11/11/19 03/29/23 Joon Lewis PA PHYSICIAN OPINION POLLS SURVEY WORKER 05/09/21 Callie Guerrero DO Mincing Machine Operator OBGYN 06/14/21 [place] [address] [phone] GASTROENTEROLOGY 06/14/21 Sergey Ramey PA [address] [place] [address] [place] [address] PHYSICIAN OPINION POLLS SURVEY WORKER 06/14/21 Jony Pruitt DPM [address] [place] [address], [address] [place] [address] Referring Physician PODIATRY/SURGERY 06/14/21 [place] [address] [place] [address] ORTHOPAEDIC SURGERY 06/14/21 documented as of this encounter
--- OUTSIDE RECORDS SUMMARY | 2024-10-24 11:56 | XMS_ITS | Encounter Summary ---
Author Organization [facility] Address [facility]. [place], [place] [address] [place] [address] Care Team Providers Care Event Planner Name Role Phone Demetrio Shore MD Primary Care Pr ovider Unavailable Joon Lewis Unavailable [phone] Callie Guerrero DO Unavailable [phone] George Osorio MD Unavailable Sergey Ramey Unavailable Jony Pruitt DPM Unavailable [phone] Gama Graves MD Unavailable [phone] Reason for Visit * Reason Comments Insect Bite complains of bites f rom ants on her left ankle and left upper arm 02/15/22JSD Encounter Details Date Type Department Care Team (Late st Contact Info) Description 02/19/2022 8:00 AM CDT Office Visit [address] [place] [phone] Justyna Chan V, [address] [place] [phone] Insect Bite (complains of bites from ants on her left ankle and left upper arm 02/15/22JSD) Social History Tobacco Use Types Packs/Day Years [...] Sign Reading Time Taken Comments Blood Pressure 128/80 02/19/2022 8:02 AM CDT Pulse 64 02/19/2022 8:02 AM CDT Temperature 36.5 ??C (97.7 ??F) 02/19/2022 8:02 AM CD T Respiratory Rate 12 02/19/2022 8:02 AM CDT Oxygen Saturation 97% 02/19/2022 8:02 AM CDT Inhaled Oxygen Concentration - - Weight 64.9 kg (143 lb) 02/19/2022 8:02 AM CDT Height 152.4 cm (5') 02/19/2022 8:02 AM CDT Body Mass Index 27.93 02/19/2022 8:02 AM CDT documented in this encounter Patient Instructions * Patient Instructions* Justyna Chan V OUTPATIENT PHYSICAL THERAPIST-BC - 02/19/2022 8:00 AM CDT Triamcinolone cream to affected areas 3 times a day as needed for itching Avoid scratching to prevent secondary infection. Watch for any signs and symptoms of infection such as increased redness, pain, increased swelling or fevers. If this happens, we need to know right away. Return for any new or worsening symptoms. You may go online to [email or web address] to sign up to view your health records and communicate with us by e-mail. It was our pleasure caring for you today. Our practice is committed to providing you the very best in health care. We want to hear from you! If you receive a survey, we would appreciate if you would complete. This survey may be a text message. Your feedback is anonymous and helps us improve patientexperience for you and others in the community we serve. documented in this encounter Progress Notes * JERROD Sherwood - 02/19/2022 8:00 AM CDT Reason for Visit: Insect Bite (complains of bites from ants on her left ankle and left upper arm 02/15/22JSD) History of Present Illness: HPI 76-year-old female, patient of Dr. Mcbride, presents for complaints of pruritic insect bites from ants on her left ankle and one spot on her left upper arm. She has not applied any medication. States initially it looked red and warm but that has gone away. Denies fevers or pain. ROS: Review of Systems Constitutional: Negative for chills and fever. HENT: Negative for congestion, ear pain, sinus pain and sore throat. Eyes: Negative for blurred vision, pain and discharge. Respiratory: Negative for cough, shortness of breath and wheezing. Cardiovascular: Negative for chest pain, palpitations and leg swelling. Gastrointestinal: Negative for abdominal pain, diarrhea, nausea and vomiting. Genitourinary: Negative for dysuria, frequency and urgency. Musculoskeletal: Negative for myalgias. Skin: Negative for rash. Ant bites left ankle and left upper arm Neurological: Negative for dizziness. Endo/Heme/Allergies: Negative. Psychiatric/Behavioral: Negative for depression. The patient is not nervous/anxious. Medications: Current Outpatient Medications Medication Sig Dispense Refill ??? Calcium Carbonate-Vitamin D (CALCIUM 500 + [...] by mouth 2 (two) times daily. ??? ROSUVASTATIN 20 MG tablet TAKE 1 TABLET BY MOUTH EVERYDAY AT BEDTIME 90 tablet 1 ??? triamcinolone 0.1 % cream Apply topically 3 (three) times daily. 15 g 0 ??? vitamin D3, cholecalciferol, 75 MCG (3000 UT) Tab tablet Take 1,000 Units by mouth daily. ??? zinc gluconate 50 MG Tab Take 1 tablet by mouth daily. ??? ifqyejmzms-zhyzyjcwcbgjt-rwbzbqpi 50-325-40 MG tablet Take 1 tablet by mouth every 4 (four) hours as needed. No current facility-administered medications for this visit. No Known Allergies Past Medical History: Diagnosis Date ??? Allergic rhinitis ??? Heartburn ??? Hip pain ??? Hypertension Past Surgical History: Procedure Laterality Date ??? BREAST BIOPSY ??? COLONOSCOPY ??? FOOT SURGERY Left 03/14/2021 dr jony pruitt ??? THROAT SURGERY PROCEDURE UNLISTED ??? TOTAL HIP ARTHROPLASTY Right 11/17/2019 Social History Tobacco Use ??? Smoking status: Never Smoker ??? Smokeless tobacco: Never Used Vaping Use ??? Vaping Use: Never used Substance Use Topics ??? Alcohol use: No ??? Drug use: No Family History Problem Relation Name Age of Onset ??? Other (TIA) Mother ??? Colon Cancer Brother ??? Migraines Daughter Family Status Relation Name Status ??? Mother ??? Brother ??? Father ??? Daughter (Not Specified) ??? Brother Alive Physical Exam: Physical Exam Vitals and nursing note reviewed. Constitutional: General: She is not in acute distress. Appearance: Normal appearance. She is well-developed and normal weight. She is not ill-appearing, toxic-appearing or diaphoretic. HENT: Head: Normocephalic and atraumatic. Mouth/Throat: Oropharynx is clear and moist. Eyes: General: Right eye: No discharge. Left eye: No discharge. Extraocular Movements: Extraocular movements intact. Conjunctiva/sclera: Conjunctivae normal. Pupils: Pupils are equal, round, and reactive to light. Neck: Thyroid: No thyromegaly. Vascular: No JVD. Trachea: No tracheal deviation. Cardiovascular: Rate and Rhythm: Normal rate and regular rhythm. Pulses: Normal pulses. Heart sounds: Normal heart sounds. No murmur heard. No friction rub. No gallop. Pulmonary: Effort: Pulmonary effort is normal. No respiratory distress or retractions. Breath sounds: Normal breath sounds. No stridor. No wheezing, rhonchi or rales. Chest: Chest wall: No tenderness. Musculoskeletal: General: No swelling, tenderness, deformity or signs of injury. Normal range of motion. Cervical back: Normal range of motion and neck supple. No rigidity or tenderness. No muscular tenderness. Right lower leg: No edema. Left lower leg: No edema. Lymphadenopathy: Cervical: No cervical adenopathy. Skin: General: Skin is warm and dry. Capillary Refill: Capillary refill takes less than 2 seconds. Coloration: Skin is not jaundiced or pale. Findings: No bruising, erythema, lesion, petechiae or rash. Rash is not purpuric. Comments: Several pinpoint scabbed over areas that are circumferential to left ankle at her sock line. She also has one insect bite to left medial upper arm. No signs of infection. Neurological: General: No focal deficit present. Mental Status: She is alert and oriented to person, place, and time. Mental status is at baseline. Cranial Nerves: No cranial nerve deficit. Sensory: No sensory deficit. Motor: No weakness or abnormal muscle tone. Coordination: Coordination normal. Gait: Gait normal. Deep Tendon Reflexes: Reflexes normal. Psychiatric: Mood and Affect: Mood normal. Behavior: Behavior normal. Thought Content: Thought content normal. Judgment: Judgment normal. Filed Vitals: 02/19/22 0802 BP: 128/80 Pulse: 64 Resp: 12 Temp: 97.7 ??F (36.5 ??C) TempSrc: Temporal SpO2: 97% Weight: 64.9 kg (143 lb) Height: 5' (1.524 m) PainSc: 0 (0-10 Scale) Body mass index is 27.93 kg/m??. No image results found. I spent 30 minutes today reviewing the patient's medical record, obtaining history, performing an exam, ordering medications, tests, and/or procedures, documenting in the medical record, counseling and educating the patient/family/caregiver, reviewing and communicating test results and coordinationof care. Diagnoses/Impression: 1. Bug bite, initial encounter triamcinolone 0.1 % cream Recommendation/Plan: Triamcinolone cream to affected areas 3 times a day as needed for itching Avoid scratching to prevent secondary infection. Watch for any signs and symptoms of infection such as increased redness, pain, increased swelling or fevers. If this happens, we need to know right away. Return for any new or worsening symptoms. Orders Placed This Encounter ??? triamcinolone 0.1 % cream Sig: Apply topically 3 (three) times daily. Dispense: 15 g Refill: 0 JERROD Zamora Cosigned by Carrie Tompkins DO at 02/19/2022 8:41 AM CDT documented in this encounter Plan of Treatment Upcoming Encounters Date Type Department Care Team (Late st Contact Info) Description 11/02/2024 8:00 AM DRAPERY SUPERVISOR Office Visit [facility] [address] [facility] [place] [address] Ella Hodge FNP [address] [facility] [place] [address] 01/19/2025 11:00 AM CDT Office Visit [facility] Pul[facility]ty [facility] - [address] [place] [address] Stanley Jim MD [address] [place] [address] 06/23/2025 8:20 AM CDT Office Visit [facility] [address] [place] [address] Ella Hodge FNP [address] [place] [address] documented as of this encounter Visit Diagnoses Diagnosis Bug bite, initial encounter- Primary documented in this encounter Additional Health Concerns Assessment Noted Time PHQ-9 Depression Total Score: 0 01/25/20 22 8:15 AM CDT documented as of this encounter Care Teams Event Planner Relationship Specialty Start Date End Date Demetrio Shore MD PCP - General FAMILY PRACTICE 11/11/19 03/29/23 Joon Lewis PA PHYSICIAN RESEARCH EXECUTIVE 05/09/21 Callie Guerrero DO Military Aircraft Designer OBGYN 06/14/21 [place] [address] [phone] GASTROENTEROLOGY 06/14/21 Sergey Ramey PA [address] [place] [address] [place] [address] PHYSICIAN RESEARCH EXECUTIVE 06/14/21 Jony Pruitt DPM [facility], [address] [place] [address] Referring Physician PODIATRY/SURGERY 06/14/21 [place] [address] [place] [address] ORTHOPAEDIC SURGERY 06/14/21 documented as of this encounter
--- OUTSIDE RECORDS SUMMARY | 2024-10-24 11:56 | XMS_ITS | Encounter Summary ---
Author Organization [facility] Address Critical access hospital6 [facility]. [place], [place] [address] [place] [address] Care Team Providers Care Winder Hand Name Role Phone Demetrio Shore MD Primary Care Pr ovider Unavailable Joon Lewis Unavailable [phone] Callie Guerrero DO Unavailable [phone] George Osorio MD Unavailable Sergey Ramey Unavailable [phone] Jony Pruitt DPM Unavailable [phone] Gama Graves MD Unavailable [phone] Encounter Details Date Type Department Care Team (Latest Contact Info) Description 01/21/2022 Travel Social History Tobacco Use Types Packs/Day [...] suspected to have Coronavirus/COVID-19? No / Unsure 01/21/2022 10:20 AM CDT documented as of this encounter Plan of Treatment Upcoming Encounters Date Type Department Care Team (Late st Contact Info) Description 11/02/2024 8:00 AM RESTORATION TECHNICIAN Office Visit [address] [place] [address] Ella oHdge [address] [place] [address] 01/19/2025 11:00 AM CDT Office Visit [facility] [address] [place] [address] Stanley Jim MD [address] [place] [address] 06/23/2025 8:20 AM CDT Office Visit [address] [place] [address] Ella Hodge [address] [place] [address] documented as of this encounter Visit Diagnoses Not on filedocumented in this encounter Additional Health Concerns Assessment Noted Time PHQ-9 Depression Total Score: 0 07/16/20 10:32 AM CDT documented as of this encounter Care Teams Winder Hand Relationship Specialty Start Date End Date Demetrio Shore MD PCP - General FAMILY PRACTICE 11/11/19 03/29/23 Joon Lewis PA PHYSICIAN CLINICAL TRIALS NURSE 05/09/21 Callie Guerrero DO Area Director Of Home Health Sales OBGYN 06/14/21 [place] [address] [facility] [address] [place] [address] GASTROENTEROLOGY 06/14/21 Sergey Ramey PA [address] [place] [address] PHYSICIAN CLINICAL TRIALS NURSE 06/14/21 Jony Pruitt DPM [address] [place] [address], [address] [place] [address] Referring Physician PODIATRY/SURGERY 06/14/21 [place] [address] [place] [address] ORTHOPAEDIC SURGERY 06/14/21 documented as of this encounter
--- OUTSIDE RECORDS SUMMARY | 2024-10-24 11:56 | XMS_ITS | Encounter Summary ---
Author Organization [facility] Address [facility]. [place], [place] [address] [place] [address] Care Team Providers Care Preventive Medicine Specialist Name Role Phone Demetrio Shore MD Primary Care Pr ovider Unavailable Joon Lewis Unavailable [phone] Callie Guerrero DO Unavailable [phone] George Osorio MD Unavailable Sergey Ramey Unavailable Jony Pruitt DPM Unavailable Gama Graves MD Unavailable Reason for Visit * Imaging (Routine) - Closed Specialty Diagnoses / Procedures Referred By Contbecka t Referred To Contact RADIOLOGY Diagnoses Encounter for screening mammogram for malignant neoplasm of breast Procedures MG SCREENING W NEVA ANDREA Demterio Munguia MD Referral ID Status Reason Start Date Expiration Date Visits Re quested Visits Authorized [id number] Closed 05/15/2022 06/15/2023 1 1 Encounter Details Date Type Department Care Team (Late st Contact Info) Description 06/06/2022 10:47 AM CDT - 06/06/2022 11:59 PM CDT Hospital Encounter [facility] Mammography [address] [place] [address] Demetrio Shore MD Discharge Disposition: Home or [...] MOUTH EVERY DAY 90 tablet 04/11/2022 2 MONTEL[place]AST 10 MG tabletIndications:Ch ronic rhinitis [...] st Contact Info) Description 11/02/2024 8:00 AM TENTER FEEDER Office Visit [address] [place] [address] Ella Hodge [address] [place] [address] 01/19/2025 11:00 AM CDT Office Visit [facility] [address] [place] [address] Stanley Jim MD [address] [place] [address] 06/23/2025 8:20 AM CDT Office Visit [address] [place] [address] Ella Hodge FNP [address] [place] [address] [place] [address] documented as of this encounter Procedures Procedure Name Priority Date/Time Associated Diagnosis Comments MG SCREENING W NEVA ANDREA DIGI Routine 06/06/2022 11:32 AM CDT Encounter for screening mammogram for malignant neoplasm of breast documented in this encounter Results * MG SCREENING W NEVA ANDREA DIGI (06/06/2022 11:32 AM CDT) Anatomical Region Laterality Modality Breast Bilateral Computed Tomogra phy, Other 06/07/2022 11:2 0 AM CDT Impressions 06/07/2022 11:23 AM CDT IMPRESSION: No radiographic evidence of malignancy identified in either breast. BI-RADS Category: Category 2 - benign findings. Mammography recheck suggested in one year. A) ??A negative report should not delay a biopsy if a dominant or clinically suspicious mass is present. B) ??Adenosis and dense breasts may obscure an underlying neoplasm. C) ??Study interpreted with computer-aided detection. MQSA BI-RADS Categories: Category 0 - needs additional imaging evaluation. Category 1 - negative. Category 2 - benign findings. Category 3 - probably benign findings, but short interval followup is recommended. Category 4 - suspicious abnormality-biopsy should be considered. Category 5 - highly suggestive of malignancy and appropriate action should be taken. ?? Category 6 - known biopsy-proven malignancy Ordered By: DEMETRIO SHORE Interpreted By: Hany Melchor, 06/07/2022 11:20 AM Narrative 06/07/2022 11:23 AM CDT BILATERAL DIGITAL SCREENING MAMMOGRAPHY WITH COMPUTER-AIDED DETECTION AND 3-D TOMOSYNTHESIS 06/06/2022 11:13 AM HISTORY: No complaints listed referable to either breast. Screening examination. Benign left breast excisional biopsy in 2005. FINDINGS: Digital 2-D mammography and 3-D tomosynthesis performed of both breasts. The breast tissue is heterogeneously dense, which may obscure small masses. Breast parenchymal pattern similar to prior studies reviewed dating back to 06/13/2017. Benign-appearing calcification. No specific finding of malignancy identified in either breast. Demetrio Shore MD MAMMO Final Result documented in this encounter Visit Diagnoses Not on filedocumented in this encounter Additional Health Concerns Assessment Noted Time PHQ-9 Depression Total Score: 0 01/25/20 22 8:15 AM CDT documented as of this encounter Care Teams Preventive Medicine Specialist Relationship Specialty Start Date End Date Demetrio Shore MD PCP - General FAMILY PRACTICE 11/11/19 03/29/23 Joon Lewis PA PHYSICIAN BUILDING MAINTENANCE REPAIRER 05/09/21 Callie Guerrero DO Box Office Agent OBGYN 06/14/21 [place] [address] [phone] GASTROENTEROLOGY 06/14/21 Sergey Ramey PA [address] [place] [address] [place] [address] PHYSICIAN BUILDING MAINTENANCE REPAIRER 06/14/21 Jony Pruitt DPM [address] [place] [address], [address] [place] [address] Referring Physician PODIATRY/SURGERY 06/14/21 [place] [address] [place] [address] ORTHOPAEDIC SURGERY 06/14/21 documented as of this encounter
--- OUTSIDE RECORDS SUMMARY | 2024-10-24 11:56 | XMS_ITS | Encounter Summary ---
Author Organization [facility] Address [address] [facility]. [place], [place] [address] [place] [address] Care Team Providers Care Telemarketing Sales Representative Name Role Phone Demetrio Shore MD Primary Care Pr ovider Unavailable Joon Lewis Unavailable [phone] Callie Guerrero DO Unavailable [phone] George Osorio MD Unavailable Sergey Ramey Unavailable Jony Pruitt DPM Unavailable [phone] Gmaa Graves MD Unavailable [phone] Reason for Visit * Reason Comments Pain Hip/ Limb * Physical Therapy (Routine) - Closed Specialty Diagnoses / Procedures Referred By Chet t Referred To Contact PHYSICAL THERAPY / [facility] Physical Therapy Diagnoses TROCHANTERIC PAIN SYNDROME ANDREA Procedures Gama Dobbins MD [address] [place] [address] Phone: tel: [place]: [place] [address] [place] [address] Phone: tel: fax: Referral ID Status Reason Start Date Expiration Date Visits Re quested Visits Authorized [id number] Closed 09/05/2022 09/06/2023 99 99 Encounter Details Date Type Department Care Team (Latest Contact Info) Description 09/05/2022 11:00 AM PHYSICAL THERAPY AIDE - 09/05/2022 11:59 PM PHYSICAL THERAPY AIDE Hospital Encounter [facility] [address] [place] [address] Gama Graves MD [address] [place] [phone] [place] [address] [place] [address] Pain Hip/ Limb Discharge Disposition: Home or Self Care (Routine [...] Coronavirus/COVID-19? No / Unsure 09/05/2022 11:01 AM PHYSICAL THERAPY AIDE documented as of this encounter Medications at [...] TWICE A DAY 180 tablet 05/31/2022 2 famotidine (PEPCID) 20 MG tabletIndications:Ga stroesophageal reflux [...] Progress Notes * Stephanie Benites, PT - 09/05/2022 11:00 AM CST Physical Therapy Evaluation Visit Diagnosis: B hip pain Trochanteric bursitis Referring Physician: Gama Graves MD Certification Period: 09/05/22-11/27/22 Current Therapy Orders: Eval and treat Next MD Visit: None at this time. Precautions: History of R ELIUD Date of Injury/Onset: Progressively getting worse over the past 2-3 months SUBJECTIVE History of Present Condition: Pt comes to PT with complaints of B hip pain that has progressively gotten worse. She attempted to go for a walk earlier this week and was only able to walk about .25miles before needing to stop due to increased B hip pain. She is limited with the amount of time she can stand and also struggles with hip pain at voodoo, especially with kneeling at voodoo. She did not have any injections or [...] Functional Deficits: Standing, sleeping, walking, participating in voodoo. Prior Level of Function: No pain PAIN Current Pain Level: 3/10 Lowest Pain Level: 2/10 Highest Pain Level: 7/10 Activities that Increase Pain: standing, walking, laying down, changing position and exercise Activities that Decrease Pain: Tylenol, sitting/resting Location and Description of Pain: B hips that travel down her lateral thighs. REVIEW WITH PATIENT Medication Reviewed: Yes Patient Stated goals for Therapy: To no longer have pain. LEFS: 09/05/22: 47/80 OBJECTIVE Gait: Pt walks into therapy without an AD. She has a lateral sway bilaterally with a R lateral leanwhen bearing weight on the R and L lateral lean with weight bearing on the L. PALPATION: Pain: Significant tenderness over B greater trochanter with moderate tenderness along with ITB. Flexibility: Moderate tightness in HS, ITB, piriformis, and quadriceps B Strength: HIP STRENGTH R L Hip flexion 3/5 4+/5 Hip abduction 3+/5 3+/5 Hip internal rotation 4+/5 4-/5 Hip external rotation 4+/5 4/5 ASSESSMENT Love Catherine presents with signs and [...] Good prognosis to achieve goals. EVALUATION SUMMARY: Pt comes to PT with complaints of B hip pain that increases when laying on her hips, walking and standing. Objectively, she has significant hip weakness bilaterally with decreasedflexibility in her piriformis, ITB, HS, and quadricep. She has a lateral weight shift with ambulating. She would benefit from skilled PT to improve her deficits to decrease her pain improve her quality of life. PLAN Planned frequency and duration of treatment is 2/week x 4 weeks to achieve the above stated goals which were discussed with the patient. Treatment will include the following: Neuromuscular Re-education - 93461, Gait Training - 32145, Therapeutic Exercise - 91919, ElectricalStimulation Unattended - 04001, Ultrasound - 15034 and Manual Therapy - 87238 GOALS 1. Patient to tolerate sleeping without pain interruption to improve sleep. Timeframe: in 4 weeks 2. Patient to have normal flexibility in her hips B. Timeframe: by DC 3. Patient to achieve Knee/Hip/Ankle Strength: 5/5 MMT Timeframe: by DC 4. Patient to demonstrate normal active mobility without guarded movement patterns Timeframe: by DC 5. Patient to demonstrate normal gait pattern and report no limitation with walking during ADLs Timeframe: by DC 6. Patient to correctly demonstrate home exercises to be performed in conjunction with therapy program Timeframe: in 2 weeks 7. Patient to decrease pain complaints with ADLs to <4/10 Timeframe: in 2 weeks 8. Patient will report significant functional improvement with ADLs Timeframe: by DC 9. Return to previous functional status for ADLs, recreational activities, or sports activities as identified by patient Timeframe: by DC 10. Patient to report self perceived improvements evidenced by functional outcome score of LEFS to at least 55/80 Timeframe: by DC Therapist: STEPHANIE BENITES, PT Date: 09/05/22 Time: 11:07 AM Physician certification: I certify that the above physical therapy services are required, authorized, and reviewed. Provider Signature: Date: Time: Gama Graves MD Patient Name: Love Catherine : 1945 ICAL THERAPY AIDE * Stephanie Benites, PT - 09/05/2022 11:00 AM CST Physical Therapy Visit Note: Patient Name: Love Catherine Diagnosis: Hip pain (primary encounter diagnosis) SUBJECTIVE Therapy Visit Total Approved Visits: 11/03 (eval 09/05/22) Therapy Plan of Care: exer, ADL, manual, modalities Current Therapy Orders: 2x4 Diagnosis: B trochanteric hip bursitis Referring Provider: Dr. Star Ramos MD Visit: NA Work Status: retired Subjective Note: See evaluation completed today. Pain Current Location of Pain: B hips through ITB's Other (comments): 4 OBJECTIVE Treatment provided today: Therapeutic Exercise - 14172 Number of Minutes - 07716: 30 Exercise: B piriformis stretch x5 Exercise: Seated HS stretch x5 Exercise: SL clamshells x20 B Exercise: bridge with hip abduction x20 Exercise: HL hip abd with red band x20 Exercise: standing hip abduction x20 Manual Therapy - 50297 Number of Minutes - 05595: 15 Intervention: HS stretch Intervention: STM/DTM to B greater trochanter and ITB Modalities Timed Ultrasound Minutes - 12945: 8 Ultrasound - 13472: Frequency 1MHz, Continuous 100%, 8 minutes, 1.5 W/cm2 Ultrasound Body Part and Patient Position: 4' to each greater trochanter Total Timed Modality Minutes: 8 ASSESSMENT Assessment Note: See evaluation completed today. PLAN Plan Next Visit Plan: Progress B hip flexibility and strength as tolerated. Total Time Total Time in Minutes: 53 Timed Code Treatment Minutes : 53 ICAL THERAPY AIDE documented in this encounter Plan of Treatment Upcoming Encounters Date Type Department Care Team (Late st Contact Info) Description 11/02/2024 8:00 AM PHYSICAL THERAPY AIDE Office Visit [address] [place] [address] Ella Hodge [facility] [address] [facility] [place] [address] 01/19/2025 11:00 AM CDT Office Visit [facility] [place] [address] [facility] [place] [address] Stanley Jim MD [address] [place] [address] 06/23/2025 8:20 AM CDT [facility] Visit [facility] [address] [facility] [place] [address] Ella Hodge [facility] [address] [facility] [place] [address] documented as of this encounter Visit Diagnoses Diagnosis Hip pain- Primary Pain in joint, pelvic region and thigh documented in this encounter Additional Health Concerns Assessment Noted Time PHQ-9 Depression Total Score: 0 01/25/20 8:15 AM CDT documented as of this encounter Care Teams Telemarketing Sales Representative Relationship Specialty Start Date End Date Demetrio Shore MD PCP - General FAMILY PRACTICE 11/11/19 03/29/23 Joon Lewis PA PHYSICIAN GUEST EXPERIENCE MANAGER 05/09/21 Callie Guerrero DO [place] [facility] 06/14/21 [place] [address] [phone] GASTROENTEROLOGY 06/14/21 Sergey Ramey PA [address] [place] [address] [place] [address] PHYSICIAN GUEST EXPERIENCE MANAGER 06/14/21 Jony Pruitt DPM [address] [place] [address], [address] [place] [address] Referring Physician PODIATRY/SURGERY 06/14/21 [place] [address] [place] [address] ORTHOPAEDIC SURGERY 06/14/21 documented as of this encounter
--- OUTSIDE RECORDS SUMMARY | 2024-10-24 11:56 | XMS_ITS | Encounter Summary ---
Author Organization [facility] Address [facility]. [place], [place] [address] [place] [address] Care Team Providers Care Respiratory Care Specialist Name Role Phone Demetrio Shore MD Primary Care Pr ovider Unavailable Joon Lewis Unavailable [phone] Callie Guerrero DO Unavailable [phone] George Osorio MD Unavailable Sergey Ramey Unavailable [phone] Jony Pruitt DPM Unavailable Gama Graves MD Unavailable [phone] Reason for Visit * Reason Comments Follow Up Follow up on medicat ions Encounter Details Date Type Department Care Team (Late st Contact Info) Description 07/03/2022 10:00 AM CDT Office Visit [address] [place] [address] Demetrio Shore MD Follow Up (Follow up on medications) Social History Tobacco Use Types Packs/Day Years [...] Sign Reading Time Taken Comments Blood Pressure 122/78 07/03/2022 9:47 AM CDT Pulse 51 07/03/2022 9:47 AM CDT Temperature 37.1 ??C (98.7 ??F) 07/03/2022 9:47 AM CD T Respiratory Rate 16 07/03/2022 9:47 AM CDT Oxygen Saturation 96% 07/03/2022 9:47 AM CDT Inhaled Oxygen Concentration - - Weight 65.2 kg (143 lb 12.8 oz) 07/03/2022 9:47 AM CDT Height 152.4 cm (5') 07/03/2022 9:47 AM CDT Body Mass Index 28.08 07/03/2022 9:47 AM CDT documented in this encounter Patient Instructions * Patient Instructions* Demetrio Shore MD - 07/03/2022 10:00 AM CDT We will call you with your results of your blood test once they are back. I will see you in 3 months in [place]. [address] [facility] [address] [place], [place] [phone] documented in this encounter Progress Notes * Demetrio Shore MD - 07/03/2022 10:00 AM CDT Images from the original note were not included. Love Catherine is a 76-year-old female who presents today alone for evaluation of Chief Complaint Patient presents with ??? Follow Up Follow up on medications History of Present Illness: Here today for medication management - she is currently on lisinopril 20 mg po dialy for HTN - she takes vitamin D supplements daily - she is on crestor for HLD - she takes pepcid for acid reflux - she is on montelukast for chronic rhinitis - takes vitamins OTC - she recently had a migraine so took Fioricet which helped - she states she has been feeling cold all the time since having COVID several months ago and feeling tired - she uses her CPAP machine for JUAN; recently she hasn't been wearing it because she's waiting on her head gear supplies - she had labs [facility] in January and TSH was normal; Vitamin D was normal - cholesterol levels were in the normal range - Hgb was slightly low at 11.5 - she has prediabtes with an A1c of 5.9 - has right hip pain; was told before that she has bursitis; is going to follow- up with her orthopedic surgeon - 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 Allergic [...] use: No ??? Drug use: No Health [facility] due was reviewed. Medications: Current Outpatient Medications Medication Sig Dispense Refill ??? ofiajdcwac-dkhecjxmajozr-fbynmzrz 50-325-40 MG tablet Take 1 tablet by mouth every 4 (four) hours as needed. ??? Calcium Carbonate-Vitamin D (CALCIUM 500 + D OR) Organic Plant Calcium with vitamin D3 and magnesium ??? cetirizine 10 MG tablet Take 10 mg by mouth daily. ??? famotidine (PEPCID) 20 MG tablet TAKE 1 TABLET BY MOUTH TWICE A DAY 180 tablet 0 ??? IPRATROPIUM 0.03 % nasal [...] both eyes 2 (two) times daily. ??? NON FORMULARY C- pap ; [...] vomiting. Objective / Physical Exam: Filed Vitals: 07/03/22 0947 BP: 122/78 Pulse: 51 Resp: 16 Temp: 98.7 ??F (37.1 ??C) TempSrc: Temporal SpO2: 96% Weight: 65.2 kg (143 lb 12.8 oz) Height: 5' (1.524 m) Body mass index is 28.08 kg/m??. Physical Exam Vitals reviewed. Constitutional: General: [...] Normal range of motion and neck supple. Legs: Skin: General: Skin is warm. Neurological: Mental Status: She is alert and oriented to person, place, and time. Psychiatric: Mood and Affect: Mood normal. Behavior: Behavior normal. Lab / In Office Testing / Radiograph review: No results found for this visit on 07/03/22. Assessment/Plan: 1. Low hemoglobin IRON SAT PANEL (IRON,IBC,%SAT) FERRITIN 2. Other fatigue IRON SAT PANEL (IRON,IBC,%SAT) FERRITIN 3. Chronic right hip pain - patient has been feeling tired and has a low hemoglobin of 11.5 in January 2022; she previously hadlow iron levels but is no longer on iron supplements as this improved - recheck iron panel and ferritin as she is feeling tired and cold; her fatigue did improve a bit with using her CPAP machine again - she has chronic right hip pain likely due to bursitis; will follow up with ortho Followup Plan: Return in about 3 months (around 10/02/2022) for med management/fatigue. Instructions on the sign/symptoms of worsening problems [...] to the patient's verbalized satisfaction. Patient Instructions We will call you with your results of your blood test once they are back. I will see you in 3 months in [place]. [address] [place], [place] [phone] Demetrio Shore MD Family Medicine [facility] documented in this encounter Plan of Treatment Upcoming Encounters Date Type Department Care Team (Late st Contact Info) Description 11/02/2024 8:00 AM SEATER GRINDER Office Visit [address] [place] [address] Ella Hodge FNP [address] [facility] [place] [address] 01/19/2025 11:00 AM CDT [facility] [place] [address] [facility] [place] [address] Stanley Jim MD [address] [place] [address] 06/23/2025 8:20 AM CDT Office Visit [address] [place] [address] Ella Hodge FNP [address] [facility] [place] [address] documented as of this encounter Results * FERRITIN (07/03/2022 10:45 AM CDT) FERRITIN 113.0 8 - 388 NG/ML 07/03/2022 1:17 PM CDT [facility] 07/03/2022 10:4 5 AM CDT us Demetrio Shore MD LABORATORY Final Result [facility] [address] [place] [address], [place] * IRON SAT PANEL (IRON,IBC,%SAT) (07/03/2022 10:45 AM CDT) IRON 89 50 - 170 MCG/DL 07/03/2022 12:51 PM CDT [facility] IRON BINDING CAPACITY 293 250 - 420 MCG/DL 07/03/2022 12:51 PM CDT [facility] IRON SATURATION 30 20 - 55 % 12:51 PM CDT [facility] 07/03/2022 10:4 5 AM CDT us Demetrio Shore MD LABORATORY Final Result [facility] [address] [facility] [place] [address], documented in this encounter Visit Diagnoses Diagnosis Low hemoglobin- Primary Anemia, unspecified Other fatigue Chronic right hip pain Pain in joint, pelvic region and thigh documented in this encounter Additional Health Concerns Assessment Noted Time PHQ-9 Depression Total Score: 0 01/25/20 22 8:15 AM CDT documented as of this encounter Care Teams Respiratory Care Specialist Relationship Specialty Start Date End Date Demetrio Shore MD PCP - General FAMILY PRACTICE 11/11/19 03/29/23 Joon Lewis PA PHYSICIAN BREAST WORKER 05/09/21 Callie Guerrero DO [facility] [facility] 06/14/21 [place] [address] [phone] GASTROENTEROLOGY 06/14/21 Sergey Ramey PA [address] [place] [address] [place] [address] PHYSICIAN BREAST WORKER 06/14/21 Jony Priutt DPM [facility], [address] [place] [address] Referring Physician PODIATRY/SURGERY 06/14/21 [place] [address] [place] [address] ORTHOPAEDIC SURGERY 06/14/21 documented as of this encounter
--- OUTSIDE RECORDS SUMMARY | 2024-10-24 11:56 | XMS_ITS | Encounter Summary ---
Author Organization [facility] Address [facility]. [place], [place] [address] [place] [address] Care Team Providers Care Mixing Machine Feeder Name Role Phone Demetrio Shore MD Primary Care Pr ovider Unavailable Joon Lewis Unavailable [phone] Callie Guerrero DO Unavailable [phone] George Osorio MD Unavailable Sergey Ramey Unavailable [phone] Jony Pruitt DPM Unavailable [phone] Gama Graves MD Unavailable [phone] Encounter Details Date Type Department Care Team (Latest Contact Info) Description 07/03/2022 Travel Social History Tobacco Use Types Packs/Day [...] st Contact Info) Description 11/02/2024 8:00 AM POWER DRIVEN BRUSH MAKER Office Visit [address] [place] [address] Ella Hodge [address] [place] [address] 01/19/2025 11:00 AM CDT Office Visit [facility] [address] [place] [address] Stanley Jim MD [address] [place] [address] 06/23/2025 8:20 AM CDT Office Visit [address] [place] [address] Ella Hodge [address] [place] [address] documented as of this encounter Visit Diagnoses Not on filedocumented in this encounter Additional Health Concerns Assessment Noted Time PHQ-9 Depression Total Score: 0 01/25/20 8:15 AM CDT documented as of this encounter Care Teams Mixing Machine Feeder Relationship Specialty Start Date End Date Demetrio Shore MD PCP - General FAMILY PRACTICE 11/11/19 03/29/23 Joon Lewis PA PHYSICIAN TRAFFIC ANALYST 05/09/21 Callie Guerrero DO Medical Device Sales OBGYN 06/14/21 [place] [address] [facility] [address] [place] [address] GASTROENTEROLOGY 06/14/21 Sergey Ramey PA [address] [place] [address] PHYSICIAN TRAFFIC ANALYST 06/14/21 Jony Pruitt DPM [address] [place] [address], [address] [place] [address] Referring Physician PODIATRY/SURGERY 06/14/21 [place] [address] [place] [address] ORTHOPAEDIC SURGERY 06/14/21 documented as of this encounter
--- OUTSIDE RECORDS SUMMARY | 2024-10-24 11:56 | XMS_ITS | Encounter Summary ---
Author Organization [facility] Address [facility]6 [facility]. [place], [place] [address] [place] [address] Care Team Providers Care Brand Ambassadors Promotional Sales Name Role Phone Demetrio Shore MD Primary Care Pr ovider Unavailable Joon Lewis Unavailable [phone] Callie Guerrero DO Unavailable [phone] George Osorio MD Unavailable Sergey Ramey Unavailable Jony Pruitt DPM Unavailable [phone] Gama Graves MD Unavailable [phone] Reason for Visit * Reason Onset Date Comments Follow Up Call 11/06/2021 Encounter Details Date Type Department Care Team (Late st Contact Info) Description 11/06/[address] [place] [phone] Justyna Chan V, [place] [address] [place] [address] Follow Up Call Social History Tobacco Use [...] Coronavirus / COVID-19? Yes 10/14/2021 3:44 PM INSURANCE EXECUTIVE documented as of this encounter Progress Notes * Julia العراقي LPN - 11/06/2021 11:15 AM CST Pt steiner and verbalized understanding. RANCE EXECUTIVE * JERROD Rosa - 11/06/2021 11:12 AM CST Upto[employer] recommends waiting 90 days after receiving monoclonal antibodies before getting vaccinated. RANCE EXECUTIVE * Julia العراقي LPN - 11/06/2021 10:24 AM CST Pt called and said she rec'd Regen-Cov 4 injections on 10/09/2021. And her had on 10/01/2021. She is asking how long do they have to wait to get a covid vaccine? RANCE EXECUTIVE documented in this encounter Plan of Treatment Upcoming Encounters Date Type Department Care Team (Late st Contact Info) Description 11/02/2024 8:00 AM INSURANCE EXECUTIVE Office Visit [address] [place], [place] [phone] Ella [facility] [place] [address] 01/19/2025 11:00 AM CDT Office Visit [facility] [place] [address] [facility] [place] [address] Stanley Jim MD [address] [address] 06/23/2025 8:20 AM CDT Office Visit [facility] [address] [facility] [place] [address] Ella Hodge [facility] [address] [place] [address] documented as of this encounter Visit Diagnoses Not on filedocumented in this encounter Additional Health Concerns Assessment Noted Time PHQ-9 Depression Total Score: 0 07/16/20 10:32 AM CDT documented as of this encounter Care Teams Brand Ambassadors Promotional Sales Relationship Specialty Start Date End Date Demetrio Shore MD PCP - General FAMILY PRACTICE 11/11/19 03/29/23 Joon Lewis PA PHYSICIAN VICE PRESIDENT & GENERAL MANAGER [employer] [place] [place] 05/09/21 Callie Guerrero DO House Sitter OBGYN 06/14/21 [place] [address] [phone] GASTROENTEROLOGY 06/14/21 Sergey Ramey PA [address] [facility] [place] [address] PHYSICIAN VICE PRESIDENT & GENERAL MANAGER [employer] [place] 06/14/21 Jony Pruitt DPM [address] [facility], [address] [place] [address] Referring Physician PODIATRY/SURGERY 06/14/21 [place] [address] [place] [address] ORTHOPAEDIC SURGERY 06/14/21 documented as of this encounter
--- OUTSIDE RECORDS SUMMARY | 2024-10-24 11:56 | XMS_ITS | Encounter Summary ---
Author Organization [facility] Address [facility]. [place], [place] [address] [place] [address] Care Team Providers Care Director Of Strategic Alliances Name Role Phone Demetrio Shore MD Primary Care Pr ovider Unavailable Joon Lewis Unavailable [phone] Callie Guerrero DO Unavailable [phone] George Osorio MD Unavailable Sergey Ramey Unavailable [phone] Jony Pruitt DPM Unavailable [phone] Gama Graves MD Unavailable [phone] Encounter Details Date Type Department Care Team (Latest Contact Info) Description 01/24/2022 Travel Social History Tobacco Use Types Packs/Day [...] st Contact Info) Description 11/02/2024 8:00 AM PHLEBOTOMY INSTRUCTOR Office Visit [address] [place] [address] Ella Hodge [address] [place] [address] 01/19/2025 11:00 AM CDT Office Visit [facility] [address] [place] [address] Stanley Jim MD [address] [place] [address] 06/23/2025 8:20 AM CDT Office Visit [address] [place] [address] Ella Hodge [address] [place] [address] documented as of this encounter Visit Diagnoses Not on filedocumented in this encounter Additional Health Concerns Assessment Noted Time PHQ-9 Depression Total Score: 0 01/25/20 8:15 AM CDT documented as of this encounter Care Teams Director Of Strategic Alliances Relationship Specialty Start Date End Date Demetrio Shore MD PCP - General FAMILY PRACTICE 11/11/19 03/29/23 Joon Lewis PA PHYSICIAN DIRECTOR ACCOUNT MANAGEMENT 05/09/21 Callie Guerrero DO Blind Lacer OBGYN 06/14/21 [place] [address] [facility] [address] [place] [address] GASTROENTEROLOGY 06/14/21 Sergey Ramey PA [address] [place] [address] PHYSICIAN DIRECTOR ACCOUNT MANAGEMENT 06/14/21 Jony Pruitt DPM [address] [place] [address], [address] [place] [address] Referring Physician PODIATRY/SURGERY 06/14/21 [place] [address] [place] [address] ORTHOPAEDIC SURGERY 06/14/21 documented as of this encounter
--- OUTSIDE RECORDS SUMMARY | 2024-10-24 11:57 | XMS_ITS | Encounter Summary ---
Author Organization [facility] Address [address] [facility]. [place], [place] [address] [place] [address] Care Team Providers Care Forensic Toxicologist Name Role Phone Demetrio Shore MD Primary Care Pr ovider Unavailable Joon Lewis Unavailable [phone] Callie Guerrero DO Unavailable [phone] George Osorio MD Unavailable Sergey Ramey Unavailable [phone] Jony Pruitt DPM Unavailable Gama Graves MD Unavailable [phone] Reason for Visit * Reason Onset Date Comments Lab Results 06/14/2021 Encounter Details Date Type Department Care Team (Late st Contact Info) Description 06/14/[address] [place] [address] Demetrio Shore MD Lab Results Social History Tobacco Use Types Packs/Day [...] please move on to questions 3-9 0 06/14/2021 Comments No Sex and Gender Information Value Date Recorded Sex Assigned at Not on file Legal Sex Female 5:51 PM CDT Gender Identity Not on file Sexual Orientation Not on file COVID-19 Exposure Response Date Recorded In the last month, have you been in contact with someone who was confirmed or suspected to have Coronavirus / COVID-19? No / Unsure 06/14/2021 8:22 AM CDT documented as of this encounter Progress Notes * Demetrio Shore MD - 06/14/2021 12:00 PM CDT Please see result note from lipid panel for more details to the patient. Demetrio Shore MD Family Medicine [facility] * Julia العراقي LPN - 06/14/2021 11:27 AM CDT Pt called asking for lab results of 06/05/2021. documented in this encounter Plan of Treatment Upcoming Encounters Date Type Department Care Team (Late st Contact Info) Description 11/02/2024 8:00 AM TREATING PLANT SUPERVISOR Office Visit [facility] [address] [place] [address] Ella Hodge FNP [address] [place] [address] 01/19/2025 11:00 AM CDT Office Visit [facility] [place] [address] [place], [place] [id number] Stanley Jim MD [address] [place] [address] 06/23/2025 8:20 AM CDT Office Visit [facility] [address] [place] [address] Ella Hodge FNP [address] [place] [address] documented as of this encounter Visit Diagnoses Not on filedocumented in this encounter Additional Health Concerns Assessment Noted Time PHQ-9 Depression Total Score: 0 06/14/20 8:46 AM CDT documented as of this encounter Care Teams Forensic Toxicologist Relationship Specialty Start Date End Date Demetrio Shore MD PCP - General FAMILY PRACTICE 11/11/19 03/29/23 Joon Lewis PA PHYSICIAN PRIMARY PRODUCTS INSPECTORS 05/09/21 Callie Guerrero DO [employer] Developer OBGYN 06/14/21 [place] [id number] [id number] GASTROENTEROLOGY 06/14/21 Sergey Ramey PA [address] [place] [address] [place] [address] PHYSICIAN PRIMARY PRODUCTS INSPECTORS 06/14/21 Jony Pruitt DPM [address] [place] [address], [address] [place] [address] Referring Physician PODIATRY/SURGERY 06/14/21 [place] [address] [place] [address] ORTHOPAEDIC SURGERY 06/14/21 documented as of this encounter
--- OUTSIDE RECORDS SUMMARY | 2024-10-24 11:57 | XMS_ITS | Encounter Summary ---
Author Organization [facility] Address [facility]. [place], [place] [address] [place] [address] Care Team Providers Care Skin Care Specialist Name Role Phone Demetrio Shore MD Primary Care Pr ovider Unavailable Joon Lewis Unavailable [phone] Callie Guerrero DO Unavailable [phone] George Osorio MD Unavailable Sergey Ramey Unavailable [phone] Jony Pruitt DPM Unavailable Gama Graves MD Unavailable [phone] Encounter Details Date Type Department Care Team (Late st Contact Info) Description 09/12/2021 Abstract [facility] [address] [place] [address] Demetrio Shore MD Social History Tobacco Use Types Packs/Day Years [...] Coronavirus / COVID-19? Yes 10/14/2021 3:44 PM POWDERED METAL SUPERVISOR documented as of this encounter Plan of Treatment Upcoming Encounters Date Type Department Care Team (Late st Contact Info) Description 11/02/2024 8:00 AM POWDERED METAL SUPERVISOR Office Visit [facility] [address] [place] [address] Ella Hodge FNP [address] [facility] [place] [address] 01/19/2025 11:00 AM CDT Office Visit [facility] - [address] [place] [address] Stanley Jim MD [address] [place] [address] 06/23/2025 8:20 AM CDT Office Visit [facility] [address] [place] [address] Ella Hodge FNP [address] [facility] [address] documented as of this encounter Visit Diagnoses Not on filedocumented in this encounter Additional Health Concerns Infection Onset Date Last Indicated Resolved Time COVID-19 Rule Out 10/04/2021 10/04/2021 10/04/2021 11:49 AM POWDERED METAL SUPERVISOR COVID-19 Confirmed 10/04/2021 10/04/2021 12:32 AM POWDERED METAL SUPERVISOR COVID-19 Rule Out 10/05/2021 10/05/2021 10/05/2021 2:12 PM POWDERED METAL SUPERVISOR Assessment Noted Time PHQ-9 Depression Total Score: 0 07/16/20 10:32 AM CDT documented as of this encounter Care Teams Skin Care Specialist Relationship Specialty Start Date End Date Demetrio Shore MD PCP - General FAMILY PRACTICE 11/11/19 03/29/23 Joon Lewis PA PHYSICIAN JOINERY MACHINIST 05/09/21 Callie Guerrero DO Planning Coordinator OBGYN 06/14/21 [place] [address] [address] GASTROENTEROLOGY 06/14/21 Sergey Ramey PA [address] [place] [address] PHYSICIAN JOINERY MACHINIST 06/14/21 Jony Pruitt DPM [address] [place] [address], [address] [place] [address] Referring Physician PODIATRY/SURGERY 06/14/21 [place] [address] [place] [address] ORTHOPAEDIC SURGERY 06/14/21 documented as of this encounter
--- OUTSIDE RECORDS SUMMARY | 2024-10-24 11:57 | XMS_ITS | Encounter Summary ---
Author Organization [facility] Address Critical access hospital6 [facility]. [place], [place] [id number] [place] [id number] Care Team Providers Care Training Consultant Name Role Phone Demetrio Shore MD Primary Care Pr ovider Unavailable Joon Lewis Unavailable [phone] Callie Guerrero DO Unavailable [phone] George Osorio MD Unavailable Sergey Ramey Unavailable [phone] Jony Penaloza DPM Unavailable Gama Graves MD Unavailable [phone] Reason for Visit * Reason Comments Medicare Wellness Encounter Details Date Type Department Care Team (Late st Contact Info) Description 06/14/2021 8:40 AM CDT Office Visit [facility] [address] [place] [address] Meagan Grullon, [facility] [address] [place] [id number] Medicare Wellness Social History Tobacco Use Types Packs/Day Years [...] Sign Reading Time Taken Comments Blood Pressure 132/78 06/14/2021 8:40 AM CDT Pulse 78 06/14/2021 8:40 AM CDT Temperature 36 ??C (96.8 ??F) 06/14/2021 8:40 AM CDT Respiratory Rate 18 06/14/2021 8:40 AM CDT Oxygen Saturation 98% 06/14/2021 8:40 AM CDT Inhaled Oxygen Concentration - - Weight 67 kg (147 lb 9.6 oz) 06/14/2021 8:40 AM CDT Height 152.4 cm (5') 06/14/2021 8:40 AM CDT Body Mass Index 28.83 06/14/2021 8:40 AM CDT documented in this encounter Patient Instructions * Patient Instructions* THEODORA Segundo - 06/14/2021 8:40 AM CDT PERSONALIZED PREVENTION PLAN FOR Love Catherine These are your preventive care screenings with due dates. Health Maintenance Topic Date Due ??? Zoster Vaccines (1 of 2) Never done ??? Influenza Adult (1) 07/27/2021 ??? Medicare Wellness Visit 06/15/2022 ??? DTaP, Tdap and Td Vaccines (2 - Td) 12/12/2025 ??? DEXA SCAN (GENERAL) Completed ??? Pneumococcal ages 65 years and older Completed ??? COVID-19 Vaccine Completed ??? MENINGOCOCCAL VACCINE Aged Out We will ask Dr. Mcbride to send electronic order for Shingrix to [facility]. Influenza due in July 2021. Moderna Booster will be due 8 months after series completed Recommended Covered Preventative Services Your PCP and clinical team will review the list below of recommended Medicare Part B Covered Preventative Services and follow up with you on future scheduling of any additional services Based on your responses to the Health Risk Assessment and appointment today, your provider recommends the following: ADVANCE DIRECTIVES- patient will provide a copy once received from her finance attorney [employer] Written by the doctors and editors at [facility] What are advance directives???--??Advance directives are legal documents that allow you to spell out ahead of time what of types medical care you would want if you ever became unable to speak for yourself. These documents can help ensure that you get the care you want even if you have an unexpectedserious illness or accident. The documents can also make things easier for the people who will need to make decisions for you if you ever become unable to make them for yourself. Are there different kinds of advance directives???--??Yes. The most useful kinds of advance directives are: ?? Health care proxy (also called the durable power of finance attorney for health care) - The health care proxy document allows you to choose someone to make medical decisions for you if you become unable to speak for yourself. The benefit of having this document is that it makes your choice of a decision-maker clear to your doctors and family members. When you choose a health care proxy, it is important to talk to the person you choose about the things that you do or don't want. That way your decision-maker knows what to do later on if he or she ever has to speak for you. ?? Living will - A living will is the document that tells health care providers what type of care you want if you become unable to speak for yourself. For instance, a living will allows you to recordin writing whether you would want a feeding tube put in if you had a serious illness or accident. ?? Do not resuscitate/do not intubate order (also called a DNR/DNI) - If you decide you do not wantyour heart restarted if it stops and you do not want a breathing tube put in if you stop breathing,you can ask for a DNR/DNI. This is a form that must be signed by a doctor. It tells all your healthcare providers that you have decided you do not want these treatments. Advance directives work best when they are part of a team effort that includes not only the person making the decisions, but also doctors, emergency health workers, and places like hospitals and nursing homes. The Physician Orders for Life Sustaining Treatment (POLST) is a form for people who already have a serious illness or are very weak and likely to need medical help. The POLST form spells out exactly what care should be given, and not given, based on your choices and wishes. It is signed by your doctor, and you can keep a copy at home to be used in the event of an emergency. A copy is also kept onfile at any hospital or other place where you might get medical care. Not every state has a POLST program. To find out if your state has one, you can go online to www.polst.org. How do I choose a health care proxy???--??Choose someone who: ?? You know and trust ?? Can separate his or her own wishes from your own ?? You know would carry out your wishes if that became necessary ?? Could be easily reached if he or she was needed ?? Could handle it if other family members or loved ones wanted you to get treated differently thanyou would want Some people choose a second person as an alternate proxy, in case their first choice cannot be reached at the time decisions need to be made. Who should have an advance directive???--??Advance directives are a good idea for anyone, but they are especially important if: ?? You are older than 65. ?? You have a serious life-threatening illness, such as advanced cancer, or end- stage heart or liver failure. ?? The person whom you would like as your health care proxy (decision-maker) is not a family memberor legally to you. If that is the case the person you would choose might not be allowed to make decisions for you. Unless there is a health care proxy, the law usually states that a person's closest family member has the right to make decisions for him or her. What kinds of decisions will I need to make???--??Your advance directives can have as much or as little detail as you want. But many people who have advance directives record their wishes about the following treatments: ?? Breathing tubes - If you stop breathing or are having a very hard time breathing, you can get attached to a machine that will help you breathe. For that to happen, you will have to be intubated. That means that a tube will be put down your throat and into your lungs. Then the tube will be connected to a breathing machine. When the tube is in place, you will not be able to talk, at least at first. Plus, you will probably be sedated, meaning that you are on medicines that make you sleep. Sometimes a breathing machine is needed only for a short time. For instance, some people need the breathing machine just while they recover from a lung infection. When deciding about a breathing tube, consider whether you would want it at all, want it only for a short time, or want it no matter what. Also, keep in mind that any time a breathing machine is used, it is hard to know for sure if and when it will be able to be disconnected. ?? Cardiopulmonary resuscitation (CPR) - If your heart stops beating suddenly, doctors might be able to restart it by pumping on your chest, putting in a breathing tube and pushing air into your lungs, giving you an electric shock (called defibrillation ), and/or giving you special medicines. Somepeople recover completely after having their heart restarted. Others have permanent brain damage from a lack of blood flow to the brain; this is most likely in people who have an advanced, serious illness. ?? Feeding tubes - If you become unable to eat, you can have a tube put into your stomach or intestines that can deliver nutrients. A feeding tube can keep a person's body going while he or she healsand gets strong. But it can also keep a person alive for a long time even if there is no chance theperson will recover. Can I change my mind???--??Yes. You can change your mind at any time. If you sign an advance directive and you decide you want a different kind of treatment or you no longer want the health care proxy you chose, all you have to do is tell your doctor or nurse about your new decision. If you want toname a new health care proxy or want to record new wishes, you can draw up new documents. How can I draw up an advance directive???--??The following table lists resources that can help you learn more about making your own advance directives (table 1). All topics are updated as new evidence becomes available and our peer review process is complete. This topic retrieved from [employer] on: Nov 03, 2018. Topic 97048 Version 11.0 table 1: Resources that can help you make advance directives ?? Address Phone number Website [address] Toll-free: [phone]) [facility] [ ] http://assets.[facility].org/external_sites/ caregiving/multimedia/EG_AdvanceDirectives.html Aging with Dignity (Five Wishes form) [address] [place] [id number] Toll-free: [phone]) [phone] [ ] www.agingwithdignity.org CaringInfo ?? Toll-free: www.caringinfo.org [facility] [employer] [address] [place] [address] www.[email or web address].org EXERCISE As an older adult, regular physical activity is one of the most important things you can do for your health. It can prevent many of the health problems that seem to come with age. It also helps your muscles grow stronger so you can keep doing your day-to-day activities without becoming dependent onothers. Not doing any physical activity can be bad for you, no matter your age or health condition. Keep inmind, some physical activity is better than none at all. Your health benefits will also increase with the more physical activity that you do. If you're 65 years of age or older, are generally fit, and have no limiting health conditions you can follow these guidelines. For Important Health Benefits Older Adults Need at Least: 2 hours and 30 minutes ( 150 minutes) of moderate-intensity aerobic activity (i.e., brisk walking) every week and muscle-strengthening activities on 2 or more days a week that work all major muscle groups (legs, hips, back, abdomen, chest, shoulders, and arms). -or- 1 hour and 15 minutes (75 minutes) of vigorous-intensity aerobic activity (i.e., jogging or running) every week and muscle-strengthening activities on 2 or more days a week that work all major musclegroups (legs, hips, back, abdomen, chest, shoulders, and arms). -or- An equivalent mix of moderate- and vigorous-intensity aerobic activity and muscle-strengthening activities on 2 or more days a week that work all major muscle groups (legs, hips, back, abdomen, chest, shoulders, and arms). For Even Greater Health Benefits Older Adults Should Increase Their Activity to: 5 hours (300 minutes) each week of moderate-intensity aerobic activity and muscle-strengthening activities on 2 or more days a week that work all major muscle groups (legs, hips, back, abdomen, chest, shoulders, and arms). -or- 2 hours and 30 minutes (150 minutes) each week of vigorous-intensity aerobic activity and muscle-strengthening activities on 2 or more days a week that work all major muscle groups (legs, hips, back,abdomen, chest, shoulders, and arms). -or- An equivalent mix of moderate- and vigorous-intensity aerobic activity and muscle-strengthening activities on 2 or more days a week that work all major muscle groups (legs, hips, back, abdomen, chest, shoulders, and arms Aerobic activity - what counts? Aerobic activity or cardio gets you breathing harder and your heart beating faster. From pushing a canvas shop laborer, to taking a dance class, to biking to the store - all types of activities count. As long as you're doing them at a moderate or vigorous intensity for at least 10 minutes at a time. Even something as simple as walking is a great way to get the aerobic activity you need, as long as it's at a moderately intense pace. Intensity is how hard your body is working during aerobic activity. How do you know if you're doing moderate or vigorous aerobic activity? On a 10-point scale, where sitting is 0 and working as hard as you can is 10, moderate-intensity aerobic activity is a 5 or 6. It will make you breathe harder and your heart beat faster. You'll also notice that you'll be able to talk, but not sing the words to your favorite song. Vigorous-intensity activity is a 7 or 8 on this scale. Your heart rate will increase quite a bit and you'll be breathing hard enough so that you won't be able to say more than a few words without stopping to catch your breath. You can do moderate- or vigorous-intensity aerobic activity, or a mix of the two each week. Intensity is how hard your body is working during aerobic activity. A rule of thumb is that 1 minute of vigorous-intensity activity is about the same as 2 minutes of moderate-intensity activity. Everyone's fitness level is different. This means that walking may feel like a moderately intense activity to you, but for others, it may feel vigorous. It all depends on you - the shape you're in, what you feel comfortable doing, and your health condition. What's important is that you do physical activities that are right for you and your abilities. Muscle-strengthening activities - what counts? Besides aerobic activity, you need to do things to make your muscles stronger at least 2 days a week. These types of activities will help keep you from losing muscle as you get older. To gain health benefits, muscle-strengthening activities need to be done to the point where it's hard for you to do another repetition without help. A repetition is one complete movement of an activity, like lifting a weight or doing one sit-up. Try to do 8--12 repetitions per activity that count as 1 set. Try to do at least 1 set of muscle-strengthening activities, but to gain even more benefits, do 2 or 3 sets. There are many ways you can strengthen your muscles, whether it's at home or the gym. The activities you choose should work all the major muscle groups of your body (legs, hips, back, chest, abdomen,shoulders, and arms). You may want to try: ???Lifting weights ???Working with resistance bands ???Doing exercises that use your body weight for resistance (push ups, sit ups) ???Heavy gardening (digging, shoveling) ???Yoga Reference: http://www.cdc.gov/physicalactivity/everyone/guidelines/olderadults.html FALL RISK Guidelines to help you prevent falls: There are several steps you can take to decrease fall risk at home. One suggestion is to remove tripping hazards like throw rugs, loose wires, clutter or other objects from the floor. Installing hand-rails for stairs and turning on night lights between the bedroom and bathroom at night are other helpful suggestions. If you have fallen in the bathroom, use of grab bars near the toilet and a shower stool or bench may help prevent a fall in this part of the home. Taking extra time when getting up from a sitting or lying position before starting to walk is especially helpful to those who have dizziness triggered by change in body position. There are also some steps that can be taken to reduce fall risk outdoors. Wearing well-fitting shoes with good traction is important when walking on either the pavement or the lawn. Avoid high heels or shoes with very thick soles, especially if you have peripheral neuropathy. If you have problems with balance or leg pain, using a cane or walker can also be helpful. Finally, be aware of possible tripping hazards outdoors including uneven pavement and slipping hazards like wet ground or pavement. documented in this encounter Progress Notes * THEODORA Segundo - 06/14/2021 8:40 AM CDTSummary: MW[facility] Medicare Annual Wellness Visit Chief Complaint: Love is an 75-year-old female here for an annual wellness visit. Patient Care Team: Demetrio Shore MD as PCP - General (FAMILY PRACTICE) ANNABELLE Garcias (PHYSICIAN BELT PICKER) Callie Guerrero DO as Build And Release Manager (OBGYN) George Osorio MD (GASTROENTEROLOGY) ANNABELLE Soto (PHYSICIAN BELT PICKER) Jony Penaloza DPM as Referring Physician (PODIATRY/SURGERY) Gama Graves MD (ORTHOPAEDIC SURGERY) HEALTH RISK ASSESSMENT A Checklist for Medicare Wellness Annual Visit During the past 4 weeks, how much have you been bothered by emotional problems such as feeling anxious, depressed, irritable, sad or downhearted and blue?: Slightly During the past 4 weeks, has your physical and emotional health limited your social activities withfamily friends, neighbors or groups?: Not at all During the past 4 weeks, how much bodily pain have you generally had?: Very mild pain During the past 4 weeks, was someone able to help you if you needed and wanted help? : Yes, as muchas I wanted During the past 4 weeks, what was the hardest physical activity you could do for atleast 2 minutes?: Moderate Can you get places out of walking distance without help?: Yes Can you shop for groceries or clothes without help : Yes Can you prepare your own meals?: Yes Can you do your own housework without help?: Yes Can you handle your own money without help?: Yes Do you need help eating, bathing, dressing, or getting around your home?: No During the past 4 weeks, how would you rate your general health?: Very good How have things been going for you during the past 4 weeks?: Pretty good Are you having difficulties driving your car? : No Do you always fasten your seatbeat when you are in a car?: Yes, usually How often during the past 4 weeks have you been bothered by any of the following problems? Fall or dizzy when standing up : Never Sexual problems: Never Trouble eating well: Never Teeth or dentures: Never Tired or fatigued: Sometimes Are you a smoker?: No During the past 4 weeks, how many drinks of wine, beer or other alcoholic bevearges did you have?: No alcohol at all Do you exercise for about 20 minutes 3 or more days a week?: No, I usually do not exercise this much Have you been given any information to help you with the following: Hazards in your house that might hurt you?: No Keeping track of your medications?: No How often do you have trouble taking medicines the way you have been told to take them?: I always take them as prescribed How confident are you that you can control and manage most of your health problems?: Very confident FALL RISK Fall Risk One or more falls in the last year:: Yes Feels unsteady when walking:: No Worried about falling:: No SLUMS SLUMS Review 06/14/2021 SLUMS #1: Day 1 SLUMS #2: Year 1 SLUMS #3: State 1 SLUMS #4: Memory directive 0 SLUMS #5a: Money spent 1 SLUMS #5b: Money left 2 SLUMS #6: Animals 3 SLUMS #7: Object recall 4 SLUMS #8a: Numbers: 87 0 SLUMS #8b: Numbers: 649 1 SLUMS #8c: Numbers: 8537 1 SLUMS #9: Clock 0 SLUMS #10a: [place] 1 SLUMS #10b: Size 1 SLUMS #11: Story 0 SLUMS #11a: Female's Name 2 SLUMS #11b: Back to work 2 SLUMS #11c: Work type 2 SLUMS #11d: State 2 Calculated SLUMS Score 25 Scoring. HIGH SCHOOL EDUCATION: 27-30=Normal, 21-26= MNDC*, 1-20=Dementia. LESS THAN HIGH SCHOOL EDUCATION: 25-30=Normal, 20=24=MNCD*, 1-19=Dementia. * Mild Neurocognitive Disorder PHQ2/PHQ9 Over the last two weeks, how often have you been bothered by any of the following problems? 05/25/2019 05/29/2021 06/14/2021 LITTLE INTEREST OR PLEASURE IN DOING THINGS 0-Not at All 0-Not at All 0-Not at All FEELING DOWN, DEPRESSSED,OR HOPELESS 0-Not at All 0-Not at All 0-Not at All PHQ2 DEPRESSION TOTAL SCORE 0 0 0 DEPRESSION SCREENING TOTAL SCORE - 0 0 The 10-year ASCVD risk score (Joel ALLEN Jr., et al., 2013) is: 27.3% Values used to calculate the score: Age: 75 years Sex: Female Is Non- : No Diabetic: No Tobacco smoker: No Systolic Blood Pressure: 132 mmHg Is BP treated: Yes HDL Cholesterol: 62 mg/dL Total Cholesterol: 172 mg/dL HISTORY Past Medical History: Diagnosis Date ??? Allergic rhinitis ??? Heartburn ??? Hip pain ??? Hypertension Past Surgical History: Procedure Laterality Date ??? BREAST BIOPSY ??? COLONOSCOPY ??? FOOT SURGERY Left 03/14/2021 dr jony penaloza ??? THROAT SURGERY PROCEDURE UNLISTED ??? TOTAL HIP ARTHROPLASTY Right 11/17/2019 Family History Problem Relation Name Age of Onset ??? Other (TIA) Mother ??? Colon Cancer Brother ??? Migraines Daughter Social History Socioeconomic History ??? Marital status: Spouse name: Not on file ??? Number of children: Not on file ??? Years of education: Not on file ??? Highest education level: Not on file Social History Tobacco Use ??? Smoking status: Never Smoker ??? Smokeless tobacco: Never Used Substance Use Topics ??? Alcohol use: No Current Outpatient Medications Medication Sig Dispense Refill ??? Calcium Carbonate-Vitamin D (CALCIUM 500 + D OR) Organic Plant Calcium with vitamin D3 and magnesium ??? cetirizine 10 MG tablet Take 10 mg by mouth daily. ??? docusate sodium (STOOL SOFTENER) 100 MG capsule Take 100 mg by mouth daily. Take 2 capsules BID ??? famotidine 20 MG tablet Take 1 tablet (20 mg total) by mouth 2 (two) times daily. 180 tablet 0 ??? hypromellose 0.3 % ophthalmic gel Place into both eyes 2 (two) times daily. ??? ipratropium 0.03 % nasal spray 2 sprays by Nasal route every 12 (twelve) hours. 30 mL 1 ??? lisinopril 20 MG tablet Take 1 tablet (20 mg total) by mouth daily. 90 tablet 1 ??? meloxicam 15 MG tablet Take 15 mg by mouth daily. ??? montelukast 10 MG tablet Take 1 tablet (10 mg total) by mouth daily. 90 tablet 1 ??? Naproxen Sodium (ALEVE) 220 MG Cap Indications: prn ??? omega-3 fatty acid 1000 MG capsule Take 1,000 mg by mouth 2 (two) times daily. ??? Polyethyl Glycol-Propyl Glycol (SYSTANE OP) One gtt bid both eyes ??? pravastatin 40 MG tablet Take 1 tablet (40 mg total) by mouth daily. 90 tablet 1 ??? probiotic capsule Take 1 capsule by mouth 3 (three) times daily with meals. ??? vitamin D3, cholecalciferol, 75 MCG (3000 UT) Tab tablet Take 1,000 Units by mouth daily. ??? zinc gluconate 50 MG Tab Take 1 tablet by mouth daily. ??? bmxtoxjbex-hqmpvadbvsmcu-vlauscwx 50-325-40 MG tablet Take 1 tablet by mouth every 4 (four) hours as needed. No current facility-administered medications for this visit. EXAM Filed Vitals: 06/14/21 0840 BP: 132/78 Pulse: 78 Resp: 18 Temp: 96.8 ??F (36 ??C) SpO2: 98% Weight: 67 kg (147 lb 9.6 oz) Height: 5' (1.524 m) Patient denies any problems with hearing. ASSESSMENT AND PLAN The patient's current medical problems were reviewed. The following health maintenance schedule was reviewed with the patient and provided in printed form in the after visit summary: Health Maintenance Topic Date Due ??? Zoster Vaccines (1 of 2) Never done ??? Influenza Adult (1) 07/27/2021 ??? Medicare Wellness Visit 06/15/2022 ??? DTaP, Tdap and Td Vaccines (2 - Td) 12/12/2025 ??? DEXA SCAN (GENERAL) Completed ??? Pneumococcal ages 65 years and older Completed ??? COVID-19 Vaccine Completed ??? MENINGOCOCCAL VACCINE Aged Out The following list of Medicare Part B Covered Preventative Services and Identified Health Risks were discussed with the patient and will be reviewed with the patient???s PCP / care team for further follow up and scheduling. Based on Love's responses to the Health Risk Assessment, we disscussed the following risks. ADVANCE DIRECTIVE The patient was counseled and encouraged to create an Advance Directive. This is actively being handled and patient will provide records once received from their finance attorney. EXERCISE She is at risk for lack of exercise and has been provided with information to increase physical activity for the benefit of her well-being. FALL RISK She is at risk for falling and has been provided with information to reduce the risk of falling at home as well as outside the home. I reviewed all the information above with the patient and made screening recommendations based on my findings. THEODORA SEGUNDO Cosigned by Juma Russell MD at 06/14/2021 10:20 PM CDT documented in this encounter Plan of Treatment Upcoming Encounters Date Type Department Care Team (Late st Contact Info) Description 11/02/2024 8:00 AM BOAT FINISHER Office Visit [facility] [address] [place] [address] Ella Hodge FNP [address] [place] [address] 01/19/2025 11:00 AM CDT Office Visit [facility] - [address] [place] [place] [address] Stanley Jim MD [address] [place] [address] 06/23/2025 8:20 AM CDT Office Visit [facility] [address] [facility] [address] Ella Hodge [facility] [address] [place] [address] documented as of this encounter Visit Diagnoses Diagnosis Routine general medical examination at a health care facility- Primary Need for shingles vaccine Need for prophylactic vaccination and inoculation against other viral diseases documented in this encounter Additional Health Concerns Assessment Noted Time PHQ-9 Depression Total Score: 0 06/14/20 8:46 AM CDT documented as of this encounter Care Teams Training Consultant Relationship Specialty Start Date End Date Demetrio Shore MD PCP - General FAMILY PRACTICE 11/11/19 03/29/23 Joon Lewis PA PHYSICIAN BELT PICKER 05/09/21 Callie Guerrero DO Build And Release Manager OBGYN 06/14/21 [place] [address] [phone] GASTROENTEROLOGY 06/14/21 Sergey Ramey PA [address] [place] [address] [place] [address] PHYSICIAN BELT PICKER 06/14/21 Jony Penaloza DPM [address] [place] [address], [address] [place] [address] Referring Physician PODIATRY/SURGERY 06/14/21 [place] [address] [facility] [place] [address] ORTHOPAEDIC SURGERY 06/14/21 documented as of this encounter
--- OUTSIDE RECORDS SUMMARY | 2024-10-24 11:57 | XMS_ITS | Encounter Summary ---
Author Organization [facility] Address [address] [facility] [place]. [place], [place] [address] [place] [address] Care Team Providers Care Endodontic Assistant Name Role Phone Demetrio Shore MD Primary Care Pr ovider Unavailable Joon Lewis Unavailable [phone] Callie Guerrero DO Unavailable [phone] George Osorio MD Unavailable Sergey Ramey Unavailable [phone] Jony Pruitt DPM Unavailable [phone] Gama Graves MD Unavailable [phone] Encounter Details Date Type Department Care Team (Late st Contact Info) Description 05/11/2021 Abstract [facility] Therapy [address] [place] [address] Gama Graves MD [address] [facility] [address] [place] [address] Social History Tobacco Use Types Packs/Day Years [...] have Coronavirus / COVID-19? No / Unsure 07/16/2021 10:19 AM CDT documented as of this encounter Plan of Treatment Upcoming Encounters Date Type Department Care Team (Late st Contact Info) Description 11/02/2024 8:00 AM JAVA ENTERPRISE ARCHITECT Office Visit [address] [place] [address] Ella Hodge [facility] [address] [facility] [place] [address] 01/19/2025 11:00 AM CDT Office Visit [facility] [address] [place] [address] Stanley Jim MD [address] [place] [address] 06/23/2025 8:20 AM CDT Office Visit [address] [place] [address] Ella Hodge [facility] [address] [facility] [place] [address] documented as of this encounter Visit Diagnoses Not on filedocumented in this encounter Care Teams Endodontic Assistant Relationship Specialty Start Date End Date Demetrio Shore MD PCP - General FAMILY PRACTICE 11/11/19 03/29/23 Joon Lewis PA PHYSICIAN NURSING EXECUTIVE 05/09/21 Donnell Guerrerokathi Head Of Merchandise Buying OBGYN 06/14/21 [place] [address] [phone] GASTROENTEROLOGY 06/14/21 Sergey Ramey PA [address] [place] [address] PHYSICIAN NURSING EXECUTIVE 06/14/21 Jony Pruitt DPM [address] [place] [address], [address] [place] [address] Referring Physician PODIATRY/SURGERY 06/14/21 [place] [address] [place] [address] ORTHOPAEDIC SURGERY 06/14/21 documented as of this encounter
--- OUTSIDE RECORDS SUMMARY | 2024-10-24 11:57 | XMS_ITS | Encounter Summary ---
Author Organization [facility] Address [facility] [place], [place] [address] [place] [address] Care Team Providers Care Vice President Payment Name Role Phone Demetrio Shore MD Primary Care Pr ovider Unavailable Joon Lewis Unavailable [phone] Callie Guerrero DO Unavailable [phone] George Osorio MD Unavailable Sergey Ramey Unavailable [phone] Jony Pruitt DPM Unavailable Gama Graves MD Unavailable [phone] Encounter Details Date Type Department Care Team (Late st Contact Info) Description 09/07/2021 Orders Only [facility] [address] [place] [address] Renetta Gimenez LPN Social History Tobacco Use Types Packs/Day Years [...] st Contact Info) Description 11/02/2024 8:00 AM RN HEMATOLOGY Office Visit [address] [place] [address] Ella Hodge [facility] [address] [facility] [place] [address] 01/19/2025 11:00 AM CDT Office Visit [facility] [address] [place] [address] Stanley Jim MD [address] [place] [address] 06/23/2025 8:20 AM CDT Office Visit [address] [place] [address] Ella Hodge [address] [place] [address] documented as of this encounter Visit Diagnoses Diagnosis Essential hypertension Unspecified essential hypertension Gastroesophageal reflux disease without esophagitis Esophageal reflux Chronic rhinitis documented in this encounter Additional Health Concerns Assessment Noted Time PHQ-9 Depression Total Score: 0 07/16/20 21 10:32 AM CDT documented as of this encounter Care Teams Vice President Payment Relationship Specialty Start Date End Date Demetrio Shore MD PCP - General FAMILY PRACTICE 11/11/19 03/29/23 Joon Lewis PA PHYSICIAN BOOK SHELVER 05/09/21 Callie Guerrero DO Rent And Miscellaneous Remittance Clerk OBGYN 06/14/21 [place] [address] [phone] GASTROENTEROLOGY 06/14/21 Sergey Ramey PA [address] [place] [address] [place] [address] PHYSICIAN BOOK SHELVER 06/14/21 Jony Pruitt DPM [facility], [address] [place] [address] Referring Physician PODIATRY/SURGERY 06/14/21 [place] [address] [place] [address] ORTHOPAEDIC SURGERY 06/14/21 documented as of this encounter
--- OUTSIDE RECORDS SUMMARY | 2024-10-24 11:57 | XMS_ITS | Encounter Summary ---
Author Organization [facility] Address [facility]. [place], [place] [address] [place] [address] Care Team Providers Care Steamer Blocker Name Role Phone Demetrio Shore MD Primary Care Pr ovider Unavailable Joon Lewis Unavailable [phone] Callie Guerrero DO Unavailable [phone] George Osorio MD Unavailable Sergey Ramey Unavailable Jony Pruitt DPM Unavailable [phone] Gama Graves MD Unavailable [phone] Encounter Details Date Type Department Care Team (Late st Contact Info) Description 07/20/2021 Orders Only [place] [address] [place] [address] Demetrio Shore MD Social History Tobacco Use [...] as of this encounter Progress Notes * Edith Trinidad RN - 07/24/2021 5:43 PM CDT Pt notified * Edith Trinidad RN - 07/24/2021 5:40 PM CDT Left message for pt to call * Demetrio Shore MD - 07/20/2021 2:56 PM CDT Ferritin and iron panel ordered due to anemia and complaints of fatigue. Demetrio Shore MD Family Medicine [facility] documented in this encounter Plan of Treatment Upcoming Encounters Date Type Department Care Team (Late st Contact Info) Description 11/02/2024 8:00 AM VULCANIZER RUBBER PLATE Office Visit [facility] [address] [place], [place] [phone] Ella Hodge FNP [address] [place] [phone] 01/19/2025 11:00 AM CDT Office Visit [facility] Medical [facility] Pulmonology Specialty Clinic - [address] [place], [place] [phone] Stanley Jim MD [address] [place] [address] 06/23/2025 8:20 AM CDT Office Visit [facility] [address] [place] [address] Ella Hodge [employer]BON ELECTRODES SUPERVISOR [address] [place] [address] documented as of this encounter Procedures Procedure Name Priority Date/Time Associated Diagnosis Comments IRON SAT PANEL (IRON,IBC,%SAT) Routine 07/24/2021 9:07 AM CDT Anemia, unspecified type FERRITIN Routine 07/24/2021 9:07 AM CDT Anemia, unspecified type documented in this encounter Results * IRON SAT PANEL (IRON,IBC,%SAT) (07/24/2021 9:07 AM CDT) IRON 85 50 - 170 ug/dL [facility] IRON BINDING CAPACITY 311 250 - 420 ug/dL [facility] O2 SATURATION 27.3 20.0 - 55.0 % [facility] 07/24/2021 9:07 AM CDT 07/24/2021 9:07 AM CDT us Demetrio Shore MD LABORATORY Final Result [facility] [address] [place] [address] * FERRITIN (07/24/2021 9:07 AM CDT) FERRITIN 98 8 - 388 ng/mL [facility] 07/24/2021 9:07 AM CDT 07/24/2021 9:07 AM CDT us Demetrio Shore MD LABORATORY Final Result [facility] [place] [address] [place] [address] documented in this encounter Visit Diagnoses Diagnosis Anemia, unspecified type- Primary documented in this encounter Additional Health Concerns Assessment Noted Time PHQ-9 Depression Total Score: 0 07/16/20 10:32 AM CDT documented as of this encounter Care Teams Steamer Blocker Relationship Specialty Start Date End Date Demetrio Shore MD PCP - General FAMILY PRACTICE 11/11/19 03/29/23 Joon Lewis PA PHYSICIAN EXERCISE EQUIPMENT SPECIALIST 05/09/21 Callie Guerrero DO Assistant Professor Of Marine Biology OBGYN 06/14/21 [place] [address] [phone] GASTROENTEROLOGY 06/14/21 Sergey Ramey PA [address] [place] [address] PHYSICIAN EXERCISE EQUIPMENT SPECIALIST 06/14/21 Jony Pruitt DPM [address] [facility], [address] [place] [address] Referring Physician PODIATRY/SURGERY 06/14/21 [place] [address] [place] [address] ORTHOPAEDIC SURGERY 06/14/21 documented as of this encounter
--- OUTSIDE RECORDS SUMMARY | 2024-10-24 11:57 | XMS_ITS | Encounter Summary ---
Author Organization [facility] Address [facility]6 [facility] [place], [place] [address] [place] [address] Care Team Providers Care Weigher Packing Name Role Phone Demetrio Shore MD Primary Care Pr ovider Unavailable Joon Lewis Unavailable [phone] Callie Guerrero DO Unavailable [phone] George Osorio MD Unavailable Sergey Ramey Unavailable [phone] Jony Penaloza DPM Unavailable Gama Graves MD Unavailable [phone] Reason for Visit * Reason Comments Follow Up med management. KB Encounter Details Date Type Department Care Team (Late st Contact Info) Description 09/27/2021 9:00 AM MEDICAL ATTENDANT Office Visit [address] [place] [address] Justyna Chan V, [place] [address] [place] [address] Follow Up (med management. KB) Social History Tobacco Use Types Packs/Day Years [...] have Coronavirus / COVID-19? No / Unsure 09/26/2021 12:16 PM MEDICAL ATTENDANT documented as of this encounter Last Filed Vital Signs Vital Sign Reading Time Taken Comments Blood Pressure 120/60 09/27/2021 9:10 AM MEDICAL ATTENDANT Pulse 81 09/27/2021 9:10 AM MEDICAL ATTENDANT Temperature 36.6 ??C (97.9 ??F) 09/27/2021 9:10 AM CS T Respiratory Rate 12 09/27/2021 9:10 AM MEDICAL ATTENDANT Oxygen Saturation 98% 09/27/2021 9:10 AM MEDICAL ATTENDANT Inhaled Oxygen Concentration - - Weight 66.1 kg (145 lb 12.8 oz) 09/27/2021 9:10 AM MEDICAL ATTENDANT Height 152.4 cm (5') 09/27/2021 9:10 AM MEDICAL ATTENDANT Body Mass Index 28.47 09/27/2021 9:10 AM MEDICAL ATTENDANT documented in this encounter Patient Instructions * Patient Instructions* Justyna Stewart V PELLET MILL OPERATOR-BC - 09/27/2021 9:00 AM MEDICAL ATTENDANT Tylenol 1000 mg every 8 hours as needed for pain Voltaren gel 4 times per day as needed for pain. Moderna booster NIXON Follow-up with Dr. Mcbride in 3 months. Sooner if needed. Return for any new or worsening symptoms. You may go online to [email or web address] to sign up to view your health [...] and others in the community we serve. CAL ATTENDANT CAL ATTENDANT documented in this encounter Progress Notes * JERROD Rosa - 09/27/2021 9:00 AM CST Reason for Visit: Follow Up (med management. KB) History of Present Illness: HPI 75-year-old female, patient of Dr. Mcbride, presents for medication management. Her lastmedication management visit was 06/2021. History of JUAN. and states she has been taking off of her CPAP machine while sleeping. She is now wearing it all night and her fatigue has improved. She sees Sergey Ramey for her JUAN annually. Appointment August 2021 and no changes. History of iron deficiency in the past. Last iron level and ferritin 06/2021 and WNL. She is not currently on iron supplements. History of acid reflux. She takes famotidine 40 mg daily. This works well for her. History of HTN. She is currently on lisinopril 20 mg po qhs. Her blood pressure today is 120/60. She does not monitor at home. Denies headaches, lightheadedness, chest pain, sob or lower ext. Edema. History of vitamin D deficiency. Last vitamin D level was 42 on 07/17/2021. She takes vitamin D 1000international units daily with dinner. She also takes Zinc for immune support. History of bursitis of right hip after wearing post op shoe on left foot. Ortho diagnosed her and sent her to PT for 3 sessions. She was told to keep doing exercises but admits she is not doing them.She will start again. She was told to take Tylenol 1000 mg every 8 hours as needed for pain. She was also told she can use Voltaren gel 4 times per day as needed for pain. History of CKD 3A. GFR 08/2021 was 57. We discussed avoiding NSAIDs. Take Tylenol as needed for pain. Can also use Voltaren gel as needed. Agrees and states understanding. History of hyperlipidemia. She takes rosuvastatin 20 mg po qhs. She is also taking omega-3 fatty acid nightly with dinner. Her last lipid panel was 06/2021 and her total cholesterol was 151, TG 58, HDL 65 and LDL 74. No muscle aching or cramping. History of seasonal allergies. She takes Singulair 10 mg daily and Zyrtec 10 mg daily and Atrovent nasal spay. She takes this year round. She also uses hypromellose ophthalmic gel twice daily for dryeyes. She has a history of migraine headaches. She does have a PRN order for Butalbital. Does not ever have to take. She does not recall the last time she had a migraine. Does not really have them any longer. Shingles vaccine Pneumonia shot May 2017. Covid vaccine- Moderna has had both. Due for vaccine. Last annual labs 07/17/2021. ?? ROS: Review of Systems Constitutional: Negative for [...] Negative for dysuria, frequency and urgency. Musculoskeletal: Positive for myalgias (right hip bursitis). Skin: Negative for rash. Neurological: Negative for dizziness. Endo/Heme/Allergies: Negative. Psychiatric/Behavioral: Negative for depression. The patient is not nervous/anxious. Medications: Current Outpatient Medications Medication Sig Dispense Refill ??? xdmvqbfpcs-jcltcqnuqmbcq-pvautvxv 50-325-40 MG tablet Take 1 tablet by mouth every 4 (four) hours as needed. ??? Calcium Carbonate-Vitamin D (CALCIUM 500 + D OR) Organic Plant Calcium with vitamin D3 and magnesium ??? cetirizine 10 MG tablet Take 10 mg by mouth daily. ??? famotidine 20 MG tablet Take 1 tablet (20 mg total) by mouth 2 (two) times daily. 60 tablet 0 ??? hypromellose 0.3 % ophthalmic gel Place into both eyes 2 (two) times daily. ??? IPRATROPIUM 0.03 % nasal spray USE 2 SPRAYS INTO EACH NOSTRIL EVERY 12 HOURS 30 mL 1 ??? lisinopril 20 MG tablet Take 1 tablet (20 mg total) by mouth daily. 30 tablet 0 ??? montelukast 10 MG tablet Take 1 tablet (10 mg total) by mouth daily. 30 tablet 0 ??? NON FORMULARY C- pap ; q hs ??? omega-3 fatty acid 1000 MG capsule Take 1,000 mg by mouth 2 (two) times daily. ??? ROSUVASTATIN 20 MG tablet TAKE 1 TABLET BY MOUTH NIGHTLY AT BEDTIME 90 tablet 0 ??? vitamin D3, cholecalciferol, 75 MCG (3000 UT) Tab tablet Take 1,000 Units by mouth daily. ??? zinc gluconate 50 MG Tab Take 1 tablet by mouth daily. ??? Propylene Glycol (SYSTANE BALANCE) 0.6 % Solution prn No current facility-administered medications for this visit. [...] Chest: Chest wall: No tenderness. Musculoskeletal: General: Tenderness (over right hip) present. No swelling, deformity or signs of injury. Normal range [...] petechiae or rash. Rash is not purpuric. Neurological: General: No focal deficit present. Mental [...] content normal. Judgment: Judgment normal. Filed Vitals: 09/27/21 0910 BP: 120/60 Pulse: 81 Resp: 12 Temp: 97.9 ??F (36.6 ??C) TempSrc: Temporal SpO2: 98% Weight: 66.1 kg (145 lb 12.8 oz) Height: 5' (1.524 m) Body mass index is 28.47 kg/m??. No image results found. I spent 35 minutes today reviewing the patient's medical record, obtaining history, performing an exam, ordering medications, tests, and/or procedures, documenting in the medical record, counseling and educating the patient/family/caregiver, reviewing and communicating test results and coordinationof care. Diagnoses/Impression: 1. Encounter for medication management 2. Mixed hyperlipidemia 3. Benign essential hypertension 4. Heartburn 5. Chronic rhinitis 6. Bursitis of right hip, unspecified bursa 7. Vitamin D deficiency 8. Obstructive sleep apnea 9. History of migraine headaches 10. Stage 3a chronic kidney disease (CMS/HCC) Recommendation/Plan: Tylenol 1000 mg every 8 hours as needed for pain Voltaren gel 4 times per day as needed for pain. Moderna booster NIXON Follow-up with Dr. Mcbride in 3 months. Sooner if needed. Return for any new or worsening symptoms. You may go online to [email or web address] to sign up to view your health [...] and others in the community we serve. No orders of the defined types were placed in this encounter. JERROD Anaya Cosigned by Carrie Tompkins DO at 09/27/2021 12:36 PM MEDICAL ATTENDANT CAL ATTENDANT CAL ATTENDANT documented in this encounter Plan of Treatment Upcoming Encounters Date Type Department Care Team (Late st Contact Info) Description 11/02/2024 8:00 AM MEDICAL ATTENDANT Office Visit [facility] [address] [place] [address] Ella Hodge FNP [address] [place] [address] 01/19/2025 11:00 AM CDT Office Visit [facility] Medical Group Pulmonology Specialty Clinic - [address] [place] [address] Stanley Jim MD [address] [place] [address] 06/23/2025 8:20 AM CDT Office Visit [facility] [address] [facility] [place] [address] Ella Hodge [facility] [address] [place] [address] documented as of this encounter Visit Diagnoses Diagnosis Encounter for medication management- Primary Encounter for long-term (current) use of other medications Mixed hyperlipidemia Benign essential hypertension Essential hypertension, benign Heartburn Chronic rhinitis Bursitis of right hip, unspecified bursa Vitamin D deficiency Unspecified vitamin D deficiency Obstructive sleep apnea Obstructive sleep apnea (adult) (pediatric) History of migraine headaches Personal history of other disorders of nervous system and sense organs Stage 3a chronic kidney disease ([facility]/HCC [facility]) documented in this encounter Additional Health Concerns Assessment Noted Time PHQ-9 Depression Total Score: 0 07/16/20 10:32 AM CDT documented as of this encounter Care Teams Weigher Packing Relationship Specialty Start Date End Date Demetrio Shore MD PCP - General FAMILY PRACTICE 11/11/19 03/29/23 Joon Lewis PA PHYSICIAN PROP AND EFFECTS DESIGNER 05/09/21 Callie Guerrero DO Binding Machine Operator OBGYN 06/14/21 [place] [address] [phone] GASTROENTEROLOGY 06/14/21 Sergey Ramey PA [address] [place] [address] [place] [address] PHYSICIAN PROP AND EFFECTS DESIGNER 06/14/21 Jony Penaloza, ARNOLDM [address] [place] [address], [address] [place] [address] Referring Physician PODIATRY/SURGERY 06/14/21 [place] [address] [address] [address] ORTHOPAEDIC SURGERY 06/14/21 documented as of this encounter
--- OUTSIDE RECORDS SUMMARY | 2024-10-24 11:57 | XMS_ITS | Encounter Summary ---
Author Organization [facility] Address [facility]. [place], [place] [address] [place] [address] Care Team Providers Care Canine Service Instructor Trainer Name Role Phone Demetrio Shore MD Primary Care Pr ovider Unavailable Joon Lewis Unavailable [phone] Callie Guerrero DO Unavailable [phone] George Osorio MD Unavailable Sergey Ramey Unavailable [phone] Jony Pruitt DPM Unavailable Gama Graves MD Unavailable [phone] Encounter Details Date Type Department Care Team (Late st Contact Info) Description 07/24/2021 Abstract [facility] [address] [place] [address] Demetrio Shore MD Social History Tobacco Use [...] Coronavirus / COVID-19? Yes 10/14/2021 3:44 PM MEDIA CLERK documented as of this encounter Plan of Treatment Upcoming Encounters Date Type Department Care Team (Late st Contact Info) Description 11/02/2024 8:00 AM MEDIA CLERK Office Visit [facility] [address] [facility] [address] Ella Hodge FNP [address] [facility] [place] [address] 01/19/2025 11:00 AM CDT Office Visit [facility] Medical [facility] Pulmonology Specialty Clinic - [address] [place] [address] Stanley Jim MD [address] [place] [address] 06/23/2025 8:20 AM CDT Office Visit [facility] [address] [place] [address] Ella Hodge FNP [address] [facility] [place] [address] documented as of this encounter Visit Diagnoses Not on filedocumented in this encounter Additional Health Concerns Infection Onset Date Last Indicated Resolved Time COVID-19 Rule Out 10/04/2021 10/04/2021 10/04/2021 11:49 AM MEDIA CLERK COVID-19 Confirmed 10/04/2021 10/04/2021 12:32 AM MEDIA CLERK COVID-19 Rule Out 10/05/2021 10/05/2021 10/05/2021 2:12 PM MEDIA CLERK Assessment Noted Time PHQ-9 Depression Total Score: 0 07/16/20 10:32 AM CDT documented as of this encounter Care Teams Canine Service Instructor Trainer Relationship Specialty Start Date End Date Demetrio Shore MD PCP - General FAMILY PRACTICE 11/11/19 03/29/23 Joon Lewis PA PHYSICIAN NATIONAL RECRUITER 05/09/21 Callie Guerrero DO Property Manager OBGYN 06/14/21 [place] [address] [phone] GASTROENTEROLOGY 06/14/21 Sergey Ramey PA [address] [place] [address] PHYSICIAN NATIONAL RECRUITER 06/14/21 Jony Pruitt DPM [address] [place] [address], [address] [place] [address] Referring Physician PODIATRY/SURGERY 06/14/21 [place] [address] [place] [address] ORTHOPAEDIC SURGERY 06/14/21 documented as of this encounter
--- OUTSIDE RECORDS SUMMARY | 2024-10-24 11:57 | XMS_ITS | Encounter Summary ---
Author Organization [facility] Address [facility]. [place], [place] [address] [place] [address] Care Team Providers Care Freelance Displayer Name Role Phone Demetrio Shore MD Primary Care Pr ovider Unavailable Joon Lewis Unavailable [phone] Callie Guerrero DO Unavailable [phone] George Osorio MD Unavailable Sergey Ramey Unavailable [phone] Jony Pruitt DPM Unavailable [phone] Gama Graves MD Unavailable [phone] Reason for Visit * Reason Onset Date Comments Medication 06/14/2021 Encounter Details Date Type Department Care Team (Late st Contact Info) Description 06/14/[address] [place] [address] Demetrio Shore MD Medication Social History Tobacco Use Types Packs/Day [...] Notes * Demetrio Shore MD - 06/14/2021 1:38 PM CDT Rosuvastatin 20 mg po qhs sent to pharmacy. Stopped pravastatin. Demetrio Shore MD Family Medicine [facility] * Demetrio Shore MD - 06/14/2021 1:37 PM CDT ----- Message from Renetta Gimenez LPN sent at 06/14/2021 1:28 PM CDT ----- Pt. Notified of results. Verbalized understanding. Pt. States that she has not taken any other statins in past. Pt. States that she is willing to switch meds if Dr. Mcbride feels it is best. Pt. Uses [facility]. documented in this encounter Plan of Treatment Upcoming Encounters Date Type Department Care Team (Late st Contact Info) Description 11/02/2024 8:00 AM ASPHALT PAVING FOREMAN Office Visit [address] [place] [id number] Ella Hodge [address] [place] [address] 01/19/2025 11:00 AM CDT Office Visit [facility] Medical Group [facility] [place] [address] [place] [address] Stanley Jim MD [address] [place] [address] 06/23/2025 8:20 AM CDT Office Visit [facility] [address] [place] [address] Ella Hodge FNP [address] [place] [address] documented as of this encounter Visit Diagnoses Diagnosis Mixed hyperlipidemia- Primary documented in this encounter Additional Health Concerns Assessment Noted Time PHQ-9 Depression Total Score: 0 06/14/20 8:46 AM CDT documented as of this encounter Care Teams Freelance Displayer Relationship Specialty Start Date End Date Demetrio Shore MD PCP - General FAMILY PRACTICE 11/11/19 03/29/23 Joon Lewis PA PHYSICIAN MANUFACTURING ASSISTANT 05/09/21 Callie Guerrero DO Goldbeater OBGYN 06/14/21 [place] [address] [phone] GASTROENTEROLOGY 06/14/21 Sergey Ramey PA [address] [facility] [place] [address] PHYSICIAN MANUFACTURING ASSISTANT 06/14/21 Jony Pruitt DPM [facility], [address] [place] [address] Referring Physician PODIATRY/SURGERY 06/14/21 [place] [address] [place] [address] ORTHOPAEDIC SURGERY 06/14/21 documented as of this encounter
--- OUTSIDE RECORDS SUMMARY | 2024-10-24 11:57 | XMS_ITS | Encounter Summary ---
Author Organization [facility] Address [facility]. [place], [place] [address] [place] [address] Care Team Providers Care Printer Repair Technician Name Role Phone Demetrio Shore MD Primary Care Pr ovider Joon Wolf Unavailable [phone] Encounter Details Date Type Department Care Team (Late st Contact Info) Description 05/28/2021 Orders Only [facility] [address] [place] [address] Edith Trinidad RN Social History Tobacco Use Types Packs/Day Years [...] please move on to questions 3-9 0 05/29/2021 Comments No Sex and Gender Information Value Date Recorded Sex Assigned at Not on file Legal Sex Female 5:51 PM CDT Gender Identity Not on file Sexual Orientation Not on file COVID-19 Exposure Response Date Recorded In the last month, have you been in contact with someone who was confirmed or suspected to have Coronavirus / COVID-19? No / Unsure 05/29/2021 8:49 AM CDT documented as of this encounter Plan of Treatment Upcoming Encounters Date Type Department Care Team (Late st Contact Info) Description 11/02/2024 8:00 AM SCIENTIFIC PUBLICATIONS EDITOR Office Visit [address] [place] [address] Ella Hodge [facility] 201 [facility] [place] [address] 01/19/2025 11:00 AM CDT Office Visit [facility] Medical [facility] [address] [place] [address] Stanley Jim MD [address] [place] [address] 06/23/2025 8:20 AM CDT Office Visit [address] [place] [address] Ella Hodge [facility] [address] [facility] [place] [address] documented as of this encounter Visit Diagnoses Not on filedocumented in this encounter Care Teams Printer Repair Technician Relationship Specialty Start Date End Date Demetrio Shore MD PCP - General FAMILY PRACTICE 11/11/19 03/29/23 Joon Lewis PA PHYSICIAN AGENT TELEGRAPHER 05/09/21 documented as of this encounter
--- OUTSIDE RECORDS SUMMARY | 2024-10-24 11:57 | XMS_ITS | Encounter Summary ---
Author Organization [facility] Address [facility]. [place], [place] [address] [place] [address] Care Team Providers Care President And Cmo Name Role Phone Demetrio Shore MD Primary Care Pr ovider Joon Wolf Unavailable [phone] Reason for Visit * Reason Onset Date Comments Fax 05/15/2021 Encounter Details Date Type Department Care Team (Late st Contact Info) Description 05/15/2021 Telephone [facility] [address] [place] [address] Demetrio Shore MD Fax Social History Tobacco Use Types Packs/Day Years Used Date Smoking Tobacco: Never Smokeless Tobacco: Never Alcohol Use Standard Drinks/Week Comments No 0 (1 standard drink = 0.6 oz pur e alcohol) AUDIT-C Answer Date Recorded Frequency of Alcohol Consumption Never 10/14/2019 Average Number of Drinks Not on file 019 Frequency of Binge Drinking Not on file 09/26 PHQ-2 Answer Date Recorded PHQ-2 Score 0 09/24/2019 Comments No Sex and Gender Information Value Date Recorded Sex Assigned at Not on file Legal Sex Female 5:51 PM CDT Gender Identity Not on file Sexual Orientation Not on file documented as of this encounter Progress Notes * Demetrio Shore MD - 05/15/2021 9:46 PM CDT She just had a mammogram done on 05/10/2021. Her next one is due 04/2022. Demetrio Shore MD Family Medicine [facility] * Julia العراقي LPN - 05/15/2021 10:47 AM CDT [facility] faxed a list of pt that is over due for Yearly mammogram. Pt last mammogram 03/30/2020. documented in this encounter Plan of Treatment Upcoming Encounters Date Type Department Care Team (Late st Contact Info) Description 11/02/2024 8:00 AM COMPUTER DESIGNER Office Visit [address] [place] [address] Ella Hodge FNP [address] [place] [address] [place] [address] 01/19/2025 11:00 AM CDT Office Visit [facility] Medical [facility] [address] [place] [address] Stanley Jim MD [address] [place] [address] 06/23/2025 8:20 AM CDT Office Visit [address] [address] Ella Hodge FNP [address] [place] [address] [place] [address] documented as of this encounter Visit Diagnoses Not on filedocumented in this encounter Care Teams President And Cmo Relationship Specialty Start Date End Date Demetrio Shore MD PCP - General FAMILY PRACTICE 11/11/19 03/29/23 Joon Lewis PA PHYSICIAN FELT DYEING MACHINE TENDER 05/09/21 documented as of this encounter
--- OUTSIDE RECORDS SUMMARY | 2024-10-24 11:57 | XMS_ITS | Encounter Summary ---
Author Organization [facility] Address [facility] [place], [place] [address] [place] [address] Care Team Providers Care Automotive Quality Engineer Name Role Phone Demetrio Shore MD Primary Care Pr ovider Unavailable Joon Lewis Unavailable [phone] Callie Guerrero DO Unavailable [phone] George Osorio MD Unavailable Sergey Ramey Unavailable [phone] Jony Pruitt DPM Unavailable [phone] Gama Graves MD Unavailable [phone] Encounter Details Date Type Department Care Team (Latest Contact Info) Description 09/26/2021 Travel Social History Tobacco Use Types Packs/Day [...] COVID-19? No / Unsure 09/26/2021 12:16 PM GRID INSPECTOR documented as of this encounter Plan of Treatment Upcoming Encounters Date Type Department Care Team (Late st Contact Info) Description 11/02/2024 8:00 AM GRID INSPECTOR Office Visit [address] [place] [address] [facility] 201 [facility] [place] [address] 01/19/2025 11:00 AM CDT Office Visit [facility] Medical Group [facility] [address] [place] [address] Stanley Jim MD [address] [place] [address] 06/23/2025 8:20 AM CDT Office Visit [address] [place] [address] Ella Hodge [address] [place] [address] documented as of this encounter Visit Diagnoses Not on filedocumented in this encounter Additional Health Concerns Assessment Noted Time PHQ-9 Depression Total Score: 0 07/16/20 21 10:32 AM CDT documented as of this encounter Care Teams Automotive Quality Engineer Relationship Specialty Start Date End Date Demetrio Shore MD PCP - General FAMILY PRACTICE 11/11/19 03/29/23 Joon Lewis PA PHYSICIAN ECHOCARDIOGRAPHY TECHNOLOGIST 05/09/21 Callie Guerrero DO Molding Machine Operator OBGYN 06/14/21 [place] [address] [facility] [address] [place] [address] GASTROENTEROLOGY 06/14/21 Sergey Ramey PA [address] [place] [address] PHYSICIAN ECHOCARDIOGRAPHY TECHNOLOGIST 06/14/21 Jony Pruitt DPM [address] [place] [address], [address] [place] [address] Referring Physician PODIATRY/SURGERY 06/14/21 [place] [address] [place] [address] ORTHOPAEDIC SURGERY 06/14/21 documented as of this encounter
--- OUTSIDE RECORDS SUMMARY | 2024-10-24 11:57 | XMS_ITS | Encounter Summary ---
Author Organization [facility] Address [address] [facility]. [place], [place] [address] [place] [address] Care Team Providers Care Business Strategy Manager Name Role Phone Demetrio Shore MD Primary Care Pr ovider Unavailable Joon Lewis Unavailable [phone] Callie Guerrero DO Unavailable [phone] George Osorio MD Unavailable Sergey Ramey Unavailable [phone] Jony Pruitt DPM Unavailable [phone] Gama Graves MD Unavailable [phone] Reason for Visit * Reason Comments URI cough, hoarse, sore throat, headache, runny nose, is covid positive on Friday, started Friday, hasnt taken any meds Encounter Details Date Type Department Care Team (Late st Contact Info) Description 10/04/2021 11:20 AM NEWSPAPER STUFFER Office Visit [address] [place] [id number] Ella Hodge, [place] [address] [place] [address] URI (cough, hoarse, sore throat, headache, runny nose, is covid positive on Friday, started Friday, hasnt taken any meds ) Social History Tobacco Use Types Packs/Day [...] suspected to have Coronavirus / COVID-19? Yes 10/04/2021 10:11 AM NEWSPAPER STUFFER documented as of this encounter Last Filed Vital Signs Vital Sign Reading Time Taken Comments Blood Pressure 140/80 10/04/2021 11:25 AM NEWSPAPER STUFFER Pulse 89 10/04/2021 11:25 AM NEWSPAPER STUFFER Temperature 36.2 ??C (97.2 ??F) 10/04/2021 11:[address] Respiratory Rate - - Oxygen Saturation 99% 10/04/2021 11:25 AM NEWSPAPER STUFFER Inhaled Oxygen Concentration - - Weight 65.8 kg (145 lb) 10/04/2021 11:25 AM NEWSPAPER STUFFER Height 152.4 cm (5') 10/04/2021 11:25 AM NEWSPAPER STUFFER Body Mass Index 28.32 10/04/2021 11:25 AM NEWSPAPER STUFFER documented in this encounter Patient Instructions * Patient Instructions* THEODORA Head - 10/04/2021 11:20 AM NEWSPAPER STUFFER Rest and stay well hydrated. May use OTC medications as needed for symptom relief. We will call with PCR COVID test result tomorrow or Friday. If you are positive you will qualify for monoclonal antibodies. You are on isolation until COVID test results are back. Continue to wash hands often, avoid touching your face, avoid sick people, wear mask in public places, continue to practice social distancing. PAPER STUFFER PAPER STUFFER documented in this encounter Progress Notes * THEODORA Head - 10/04/2021 11:20 AM CST Love Catherine is a 75-year-old female patient. Reason for Visit: URI (cough, hoarse, sore throat, headache, runny nose, is covid positive on Friday, startedFriday, hasnt taken any meds ) History of Present Illness: Here for URI symptoms that started yesterday. She denies any fever, no loss of taste/smell. No chest pain or shortness of breath. She completed [place] vaccination but has not had booster vaccine. tested positive for COVID on Monday 10/01. They are trying to stay away from each other in the house. ROS: Review of Systems Constitutional: Positive for malaise/fatigue. Negative for fever. HENT: Positive for congestion and sore throat. Respiratory: Positive for cough. Negative for shortness of breath. Cardiovascular: Negative. Gastrointestinal: Negative. Neurological: Negative for headaches. Medications: Current Outpatient Medications: ??? svmvuenrkd-zfltshwnbjurg-zozpwjax 50-325-40 MG tablet, Take 1 tablet by mouth every 4 (four) hours as needed., Disp: , Rfl: ??? Calcium Carbonate-Vitamin D (CALCIUM 500 + D OR), Organic Plant Calcium with vitamin D3 and magnesium, Disp: , Rfl: ??? cetirizine 10 MG tablet, Take 10 mg by mouth daily., Disp: , Rfl: ??? famotidine 20 MG tablet, Take 1 tablet (20 mg total) by mouth 2 (two) times daily., Disp: 60 tablet, Rfl: 0 ??? hypromellose 0.3 % ophthalmic gel, Place into both eyes 2 (two) times daily., Disp: , Rfl: ??? IPRATROPIUM 0.03 % nasal spray, USE 2 SPRAYS INTO EACH NOSTRIL EVERY 12 HOURS, Disp: 30 mL, Rfl: 1 ??? lisinopril 20 MG tablet, Take 1 tablet (20 mg total) by mouth daily., Disp: 30 tablet, Rfl: 0 ??? montelukast 10 MG tablet, Take 1 tablet (10 mg total) by mouth daily., Disp: 30 tablet, Rfl: 0 ??? NON FORMULARY, C- pap ; q hs, Disp: , Rfl: ??? omega-3 fatty acid 1000 MG capsule, Take 1,000 mg by mouth 2 (two) times daily., Disp: , Rfl: ??? Propylene Glycol (SYSTANE BALANCE) 0.6 % Solution, prn, Disp: , Rfl: ??? ROSUVASTATIN 20 MG tablet, TAKE 1 TABLET BY MOUTH NIGHTLY AT BEDTIME, Disp: 90 tablet, Rfl: 0 ??? vitamin D3, cholecalciferol, 75 MCG (3000 UT) Tab tablet, Take 1,000 Units by mouth daily., Disp: , Rfl: ??? zinc gluconate 50 MG Tab, Take 1 tablet by mouth daily., Disp: , Rfl: No Known Allergies Past Medical History: Diagnosis [...] ??? Daughter (Not Specified) ??? Brother Alive Filed Vitals: 10/04/21 1125 BP: 140/80 Pulse: 89 Temp: 97.2 ??F (36.2 ??C) SpO2: 99% Weight: 65.8 kg (145 lb) Height: 5' (1.524 m) Body mass index is 28.32 kg/m??. Physical Exam: Physical Exam Constitutional: Appearance: Normal appearance. She is ill-appearing (mild). HENT: Head: Normocephalic. Right Ear: Tympanic membrane, ear canal and external ear normal. Left Ear: Tympanic membrane, ear canal and external ear normal. Cardiovascular: Rate and Rhythm: Normal rate [...] Encounter Diagnose(s) ICD-10-CM ICD-9-CM SNOMED CT(R) 1. Cough R05.9 786.2 COUGH CORONAVIRUS (COVID-19) INFLUENZA A & B ANTIGEN IA PANEL CORONAVIRUS (COVID 19) PCR ([facility]) 2. Exposure to confirmed case of COVID-19 Z20.822 V01.79 EXPOSURE TO SARS-COV-2 3. Viral URI J06.9 465.9 VIRAL UPPER RESPIRATORY TRACT INFECTION Recommendations and Plan: Discussed isolation guidelines until PCR test is returned. May also need repeat testing if COVID PCR is negative and she develops additional symptoms. She would qualify for monoclonal antibodies due to age and history of HTN. Reviewed signs and symptoms of worsening illness, respiratory distress and when to seek treatment. Encouraged COVID booster once she is feeling better. Patient Instructions Rest and stay well hydrated. May use OTC medications as needed for symptom relief. We will call with PCR COVID test result tomorrow or Friday. If you are positive you will qualify for monoclonal antibodies. You are on isolation until COVID test results are back. Continue to wash hands often, avoid touching your face, avoid sick people, wear mask in public places, continue to practice social distancing. THEODOAR HEAD Cosigned by Ziggy Harding MD at 10/05/2021 9:35 AM NEWSPAPER STUFFER PAPER STUFFER PAPER STUFFER documented in this encounter Plan of Treatment Upcoming Encounters Date Type Department Care Team (Late st Contact Info) Description 11/02/2024 8:00 AM NEWSPAPER STUFFER Office Visit [facility] [address] [facility] [place] [address] Ella Hodge [facility] [address] [facility] [place] [address] 01/19/2025 11:00 AM CDT Office Visit [facility] [address] [place] [address] Stanley Jim MD [address] [place] [address] 06/23/2025 8:20 AM CDT Office Visit [facility] [address] [facility] [address] [address] Ella Hodge [facility] [address] [facility] [place] [address] documented as of this encounter Procedures Procedure Name Priority Date/Time Associated Diagnosis Comments CORONAVIRUS (COVID-19) INFLUENZA A & B ANTIGEN IA PANEL Routine 10/04/2021 Cough documented in this encounter Results * (ABNORMAL) CORONAVIRUS (COVID 19) PCR ([facility]) (10/04/2021 11:49 AM NEWSPAPER STUFFER) SPEC DESCRIPTION NASAL 10/05/20 8:41 AM NEWSPAPER STUFFER [facility] CORONAVIRUS SARS COV 2 PCR (RESP) POSITIVE(AA ) NEGATIVE 10/05/2021 2:12 PM NEWSPAPER STUFFER [facility] Comment: THE SARS-CoV-2 TEST HAS BEEN AUTHORIZED BY THE FDA UNDER AN EUA FOR USE BY AUTHORIZED LABORATORIES. PERFORMED BY NUCLEIC ACID AMPLIFICATION PCR FIRST TEST NO 10/05/2021 8:41 [address] [facility] EMPLOYED IN HEALTHCARE NO 10/05/2021 8:41 AM NEWSPAPER STUFFER [facility] SYMPTOMATIC DEFINED BY CDC YES 10/05/2021 8:41 AM NEWSPAPER STUFFER [facility] DATE OF SYMPTOM ONSET 2021100310/05/2021 8:41 AM NEWSPAPER STUFFER [facility] HOSPITALIZATION STATUS NO 10/05/2021 8:41 AM NEWSPAPER STUFFER [facility] PATIENT IN ICU NO 10/05/2021 8:41 AM NEWSPAPER STUFFER [facility] RESIDENT OF [facility] NO 10/05/2021 8:41 AM NEWSPAPER STUFFER [facility] NASOPHARYNGEAL SWAB / Unknown 10/04/2021 11:49 AM NEWSPAPER STUFFER Ella Hodge [facility] MICROBIOLOGY - GENERAL OR DERABLES Final Result Performing Organization Address City/[facility]/ZIP Co de Phone Number [facility] [address] [place] [address], [place] [phone] * CORONAVIRUS (COVID-19) INFLUENZA A & B ANTIGEN IA PANEL (10/04/2021) CORONAVIRUS ANTIGEN IA NEGATIVE NEGATIVE [facility] [place] ([address]), [place] INFLUENZA A NEGATIVE NEGATIVE [facility] ALMA [place] (201), [place] INFLUENZA B NEGATIVE NEGATIVE [facility] AL[place] (201), [place] Internal Control: VALID VALID ADALID [place] (201), [place] NASAL STRUCTURE / Unknown 10/04/2021 Ella GORMANP MICROBIOLOGY - GENERAL OR DERABLES Final Result ADALID [place] (201), [address] [address], [place] [phone] documented in this encounter Visit Diagnoses Diagnosis Cough- Primary Exposure to confirmed case of COVID-19 Viral URI Acute upper respiratory infections of unspecified site documented in this encounter Additional Health Concerns Infection Onset Date Last Indicated Resolved Time COVID-19 Rule Out 10/04/2021 10/04/2021 10/04/2021 11:49 AM NEWSPAPER STUFFER Assessment Noted Time PHQ-9 Depression Total Score: 0 07/16/20 10:32 AM CDT documented as of this encounter Care Teams Business Strategy Manager Relationship Specialty Start Date End Date Demetrio Shore MD PCP - General FAMILY PRACTICE 11/11/19 03/29/23 Joon Lewis PA PHYSICIAN TRUCK SALES MANAGER 05/09/21 Callie Guerrero DO Action Installer OBGYN 06/14/21 [place] [address] [phone] GASTROENTEROLOGY 06/14/21 Sergey Ramey PA [address] [place] [address] PHYSICIAN TRUCK SALES MANAGER 06/14/21 Jony Pruitt, DPM [address] [place] [address], [address] [place] [address] Referring Physician PODIATRY/SURGERY 06/14/21 [place] [address] [place] [address] ORTHOPAEDIC SURGERY 06/14/21 documented as of this encounter
--- OUTSIDE RECORDS SUMMARY | 2024-10-24 11:57 | XMS_ITS | Encounter Summary ---
Author Organization [facility] Address Critical access hospital6 [facility]. [place], [place] [address] [place] [address] Care Team Providers Care Rn Admission Name Role Phone Demetrio Shore MD Primary Care Pr ovider Unavailable Joon Lewis Unavailable [phone] Callie Guerrero DO Unavailable [phone] George Osorio MD Unavailable Sergey Ramey Unavailable Jony Pruitt DPM Unavailable Gama Graves MD Unavailable [phone] Encounter Details Date Type Department Care Team (Late st Contact Info) Description 06/05/2021 Abstract [facility] [address] [place] [address] Demetrio Shore MD Social History Tobacco Use [...] st Contact Info) Description 11/02/2024 8:00 AM SPECIMEN ACCESSIONER Office Visit [address] [place] [address] Ella Hodge [address] [place] [address] 01/19/2025 11:00 AM CDT Office Visit [facility] [address] [place] [address] Stanley Jim MD [address] [place] [address] 06/23/2025 8:20 AM CDT Office Visit [address] [place] [address] Ella Hodge [address] [place] [address] documented as of this encounter Visit Diagnoses Not on filedocumented in this encounter Additional Health Concerns Assessment Noted Time PHQ-9 Depression Total Score: 0 05/29/20 21 9:14 AM CDT documented as of this encounter Care Teams Rn Admission Relationship Specialty Start Date End Date Demetrio Shore MD PCP - General FAMILY PRACTICE 11/11/19 03/29/23 Joon Lewis PA PHYSICIAN SIGNAL TESTER 05/09/21 [place] It Technical Specialist OBGYN 06/14/21 [place] [address] [phone] GASTROENTEROLOGY 06/14/21 Sergey Ramey PA [address] [place] [address] PHYSICIAN SIGNAL TESTER 06/14/21 Jony Pruitt, DPM [address] [place] [address], [address] [place] [address] Referring Physician PODIATRY/SURGERY 06/14/21 [place] [address] [place] [address] ORTHOPAEDIC SURGERY 06/14/21 documented as of this encounter
--- OUTSIDE RECORDS SUMMARY | 2024-10-24 11:57 | XMS_ITS | Encounter Summary ---
Author Organization [facility] Address [facility]. [place], [place] [address] [place] [address] Care Team Providers Care Art Objects Supervisor Name Role Phone Demetrio Shore MD Primary Care Pr ovider Unavailable Joon Lewis Unavailable [phone] Callie Guerrero DO Unavailable [phone] George Osorio MD Unavailable Sergey Ramey Unavailable Jony Pruitt DPM Unavailable [phone] Gama Graves MD Unavailable [phone] Reason for Visit * Reason Onset Date Comments Orders 09/12/2021 Need lipid order sent to [facility] Encounter Details Date Type Department Care Team (Late st Contact Info) Description 09/12/[address] [place] [address] Demetrio Shore MD Orders (Need lipid order sent to [facility]) Social History Tobacco Use Types Packs/Day Years [...] as of this encounter Progress Notes * JERROD Rosa - 09/14/2021 9:13 AM CST Cholesterol has improved some and is WNL. According to Dr. Stephenson last note, she wanted Love to return in 3mo for ov. That is sometime this month. RUCTIONAL COACH * Julia العراقي LPN - 09/12/2021 9:[address] Mcbride reviewed Lipid in May 2021 and it needed rechecked in 3 months. Pt is at [facility] and no order there. I made a order and sent to [facility] . RUCTIONAL COACH documented in this encounter Plan of Treatment Upcoming Encounters Date Type Department Care Team (Late st Contact Info) Description 11/02/2024 8:00 AM INSTRUCTIONAL COACH Office Visit [facility] [address] [place] [address] Ella Hodge FNP [address] [place] [address] 01/19/2025 11:00 AM CDT Office Visit [facility] Medical Group Pul[facility] - [place] [address] [facility] [place] [address] Stanley Jim MD [address] [place] [address] 06/23/2025 8:20 AM CDT Office Visit [facility] [address] [facility] [place] [address] Ella Hodge, [facility] [address] [place] [address] documented as of this encounter Procedures Procedure Name Priority Date/Time Associated Diagnosis Comments LIPID PANEL Routine 09/12/2021 10:11 AM INSTRUCTIONAL COACH Mixed hyperlipidemia documented in this encounter Results * (ABNORMAL) LIPID PANEL (09/12/2021 10:11 AM INSTRUCTIONAL COACH) CHOLESTEROL 151 0 - 200 mg/dL [facility] TRIGLYCERIDES 58 0 - 150 mg/dL [facility] HDL 65(H) 40 - 60 mg/dL [facility] LDL (CALCULATED) 74 10 - 130 mg/dL [facility] CARDIO RISK 2 [facility] Comment: ?CHOLESTEROL LEVELS AND CHD RISK INTERPRETATIONS ?CHOLESTEROL ?LDL ?DESIRABLE ?< 200 mg/dL ? < 130 mg/dL ?BORDERLINE ? 200-239 mg/dL ? 130-159 mg/dL ?HIGH ? > 240 mg/dL ? > 160 mg/dL ?CHD RISK FACTORS ? CHOL/HDL RATIO ? MALE ?FEMALE ?BELOW AVG. ?< 4.2 ? < 3.9 ?AVERAGE ? 4.2-7.3 ? 3.9-5.7 ?ABOVE AVG.(MODERATE) ?7.4-11.5 ?5.8-9.0 ?ABOVE AVG.(HIGH) ?> 11.5 ?> 9.0 ?LDL AND CHD RATIO ARE INVALID IF TRIGLYCERIDES >450 09/12/2021 10:1 1 AM INSTRUCTIONAL COACH 09/12/2021 10:11 AM INSTRUCTIONAL COACH Demetrio Shore MD LABORATORY Final Result Performing Organization Address City/State/[facility] Co ne Phone Number [facility] [phone] documented in this encounter Visit Diagnoses Diagnosis Mixed hyperlipidemia- Primary documented in this encounter Additional Health Concerns Assessment Noted Time PHQ-9 Depression Total Score: 0 07/16/20 10:32 AM CDT documented as of this encounter Care Teams Art Objects Supervisor Relationship Specialty Start Date End Date Demetrio Shore MD PCP - General FAMILY PRACTICE 11/11/19 03/29/23 Joon Lewis PA PHYSICIAN DIRECTOR INSURANCE 05/09/21 Callie Guerrero DO Mathematical Technician OBGYN 06/14/21 [place] [address] [place] [address] GASTROENTEROLOGY 06/14/21 Sergey Ramey PA [address] [place] [address] PHYSICIAN DIRECTOR INSURANCE 06/14/21 Jony Pruitt DPM [address] [place] [address], [address] [place] [address] Referring Physician PODIATRY/SURGERY 06/14/21 [place] [address] [place] [address] ORTHOPAEDIC SURGERY 06/14/21 documented as of this encounter
--- OUTSIDE RECORDS SUMMARY | 2024-10-24 11:57 | XMS_ITS | Encounter Summary ---
Author Organization [facility] Address [address] [facility]. [place], [place] [address] [place] [address] Care Team Providers Care Checkerer Hand Name Role Phone Demetrio Shore MD Primary Care Pr ovider Unavailable Joon Lewis Unavailable [phone] Callie Guerrero DO Unavailable George Osoiro MD Unavailable Sergey Ramey Unavailable Jony Pruitt DPM Unavailable Gama Graves MD Unavailable [phone] Encounter Details Date Type Department Care Team (Late st Contact Info) Description 10/04/2021 8:40 AM CARTOGRAPHY TECHNICIAN - 10/04/2021 11:59 PM [facility] Hospital Encounter [facility] [address] [address] Ella Hodge, [address] [place] [address] Discharge Disposition: Home or Self Care (Routine [...] Coronavirus / COVID-19? Yes 10/04/2021 10:11 AM CARTOGRAPHY TECHNICIAN documented as of this encounter Medications at [...] with vitamin D3 and magnesium 4 famotidine 20 MG tabletIndications:Ga stroesophageal reflux disease without esophagitis Take 1 tablet (20 mg total) by mouth 2 (two) times daily. 60 tablet 09/07/2021 2 hypromellose 0.3 % ophthalmic gel Place into both eyes 2 (two) times daily. 4 IPRATROPIUM 0.03 % nasal sprayIndications:Art al congestion USE 2 SPRAYS INTO EACH NOSTRIL EVERY 12 HOURS 30 mL 1 09/25/2021 1 lisinopril 20 MG tabletIndications:Es sential hypertension Take 1 tablet (20 mg total) by mouth daily. 30 tablet 09/07/2021 1 montelukast 10 MG tabletIndications:Ch ronic rhinitis Take 1 tablet (10 mg total) by mouth daily. 30 tablet 09/07/2021 1 Propylene Glycol (SYSTANE BALANCE) 0.6 % Solution prn 2 ROSUVASTATIN 20 MG tabletIndications:Mi xed hyperlipidemia TAKE 1 TABLET BY MOUTH NIGHTLY AT BEDTIME 90 tablet 09/10/2021 2 documented as of this encounter Progress Notes * Renetta Gimenez LPN - 10/04/2021 8:40 AM CST Pt. Notified. Verbalized understanding. Pt. Does not want to proceed with antibody injection at this time. States that she will think about receiving them, and call our office back if decides to proceed as soon as possible. OGRAPHY TECHNICIAN documented in this encounter Plan of Treatment Upcoming Encounters Date Type Department Care Team (Late st Contact Info) Description 11/02/2024 8:00 AM CARTOGRAPHY TECHNICIAN Office Visit [address] [place] [address] Ella Hodge FNP [address] [facility] [place] [address] 01/19/2025 11:00 AM CDT Office Visit [facility] [address] [place] [address] Stanley Jim MD [address] [place] [address] 06/23/2025 8:20 AM CDT Office Visit [address] [place] [address] Ella Hodge FNP [address] [place] [address] [place] [address] documented as of this encounter Procedures Procedure Name Priority Date/Time Associated Diagnosis Comments CORONAVIRUS (COVID 19) PCR Routine 10/04/2021 11:49 AM CARTOGRAPHY TECHNICIAN Cough documented in this encounter Results * (ABNORMAL) CORONAVIRUS (COVID 19) PCR ([facility]) (10/04/2021 11:49 AM CARTOGRAPHY TECHNICIAN) SPEC DESCRIPTION NASAL 10/05/20 8:41 AM CARTOGRAPHY TECHNICIAN [facility] CORONAVIRUS SARS COV 2 PCR (RESP) POSITIVE(AA ) NEGATIVE 10/05/2021 2:12 PM CARTOGRAPHY TECHNICIAN [facility] Comment: THE SARS-CoV-2 TEST HAS BEEN AUTHORIZED BY THE FDA UNDER AN EUA FOR USE BY AUTHORIZED LABORATORIES. PERFORMED BY NUCLEIC ACID AMPLIFICATION PCR FIRST TEST NO 10/05/2021 8:41 AM [facility] EMPLOYED IN HEALTHCARE NO 10/05/2021 8:41 AM [facility] SYMPTOMATIC DEFINED BY CDC YES 10/05/2021 8:41 AM CARTOGRAPHY TECHNICIAN [facility] DATE OF SYMPTOM ONSET 2021100310/05/2021 8:41 AM [facility] HOSPITALIZATION STATUS NO 10/05/2021 8:41 AM [facility] PATIENT IN ICU NO 10/05/2021 8:41 AM [facility] RESIDENT OF [facility] CARE NO 10/05/2021 8:41 AM [facility] NASOPHARYNGEAL SWAB / Unknown 10/04/2021 11:49 AM CARTOGRAPHY TECHNICIAN Ella GORMANP MICROBIOLOGY - GENERAL OR DERABLES Final Result [facility] [address] [place] [address], documented in this encounter Visit Diagnoses Diagnosis Cough documented in this encounter Additional Health Concerns Infection Onset Date Last Indicated Resolved Time COVID-19 Rule Out 10/04/2021 10/04/2021 10/04/2021 11:49 AM CARTOGRAPHY TECHNICIAN Assessment Noted Time PHQ-9 Depression Total Score: 0 07/16/20 10:32 AM CDT documented as of this encounter Care Teams Checkerer Hand Relationship Specialty Start Date End Date Demetrio Shore MD PCP - General FAMILY PRACTICE 11/11/19 03/29/23 Joon Lewis PA PHYSICIAN INTRANET SUPPORT 05/09/21 Callie Guerrero DO Process Development Manager OBGYN 06/14/21 [place] [address] [phone] GASTROENTEROLOGY 06/14/21 Sergey Ramey PA [address] [place] [address] [place] [address] PHYSICIAN INTRANET SUPPORT 06/14/21 Jony Pruitt DPM [address] [place] [address], [address] [place] [address] Referring Physician PODIATRY/SURGERY 06/14/21 [place] [address] [place] [address] ORTHOPAEDIC SURGERY 06/14/21 documented as of this encounter
--- OUTSIDE RECORDS SUMMARY | 2024-10-24 11:57 | XMS_ITS | Encounter Summary ---
Author Organization [facility] Address [address] [place] [address]. [place], [place] [address] [place] [address] Care Team Providers Care Military Lawyer Name Role Phone Demetrio Shore MD Primary Care Pr ovider Joon Wolf Unavailable [phone] Reason for Visit * Reason Comments Follow Up here for 3 month fol low up Encounter Details Date Type Department Care Team (Late st Contact Info) Description 05/29/2021 9:00 AM CDT Office Visit [address] [place] [address] Demetrio Shore MD Follow Up (here for 3 month follow up) Social History Tobacco Use Types Packs/Day Years [...] Sign Reading Time Taken Comments Blood Pressure 138/80 05/29/2021 9:05 AM CDT Pulse 56 05/29/2021 9:05 AM CDT Temperature 36.5 ??C (97.7 ??F) 05/29/2021 9:05 AM CD T Respiratory Rate 12 05/29/2021 9:05 AM CDT Oxygen Saturation 98% 05/29/2021 9:05 AM CDT Inhaled Oxygen Concentration - - Weight 68.2 kg (150 lb 6.4 oz) 05/29/2021 9:05 A M CDT Height 152.4 cm (5') 05/29/2021 9:05 AM CDT Body Mass Index 29.37 05/29/2021 9:05 AM CDT documented in this encounter Patient Instructions * Patient Instructions* Demetrio Shore MD - 05/29/2021 9:00 AM CDT Please call Dr. Osorio's office to set up your colonoscopy. Your last one was done in 2018 and therewas a polyp removed. He wanted to repeat this in 3 years. It is due this year. I have refilled famotidine for you. If you have not received Shingrix before we do recommend getting this vaccine to help protect you against Shingles. You can get this at your pharmacy. documented in this encounter Progress Notes * Demetrio Shore MD - 05/29/2021 9:00 AM CDT Love Catherine is a 75-year-old female who presents today alone for evaluation of Chief Complaint Patient presents with ??? Follow Up here for 3 month follow up History of Present Illness: Here today for 3 month follow-up: - she has acid reflux and is needing a refill on famotidine - she has HTN and is currently on lisinopril 20 mg po qhs - she is also on pravasatin 40 mg po qhs; her last lipid panel was done on 06/14/2020; her total cholesterol was 188, TG 79, HDL 59 and LDL 113 - states she had a shingles vaccine several years ago at [facility]; only got one dose but is unsure if this was Zostavax or Shingrix - has been going to PT for her right hip due to bursitis; next week Friday is her last session with PT; she has not received a steroid injection yet with orthopedics, she is trying PT first and states it is helping her - states she had bunion surgery on her left foot a few months ago and it went well, however after the anesthesia she has felt very tired since then. She reports that the fatigue has improved in the last week or two and she is doing better Past Medical History: Diagnosis Date ??? Allergic rhinitis ??? Heartburn ??? Hip pain ??? Hypertension Past Surgical History: Procedure Laterality Date ??? BREAST BIOPSY ??? COLONOSCOPY ??? FOOT SURGERY Left 03/14/2021 dr segundo penaloza ??? THROAT SURGERY PROCEDURE UNLISTED ??? TOTAL HIP ARTHROPLASTY Right 11/17/2019 Family History Problem Relation Name Age of Onset ??? Other (TIA) Mother ??? Colon Cancer Brother ??? Migraines Daughter Social History Tobacco Use ??? Smoking status: Never Smoker ??? Smokeless tobacco: Never Used Substance Use Topics ??? Alcohol use: No ??? Drug use: No Health Nadiaderrick crane was reviewed. Medications: Current Outpatient Medications Medication Sig Dispense Refill ??? lcqqvalvqm-nmwdvyobdsqhb-suulgutn 50-325-40 MG tablet Take 1 tablet by mouth every 4 (four) hours as needed. ??? cetirizine 10 MG tablet Take 10 mg by mouth daily. ??? famotidine 20 MG tablet Take 1 tablet (20 mg total) by mouth 2 (two) times daily. 180 tablet 0 ??? ipratropium 0.03 % nasal spray 2 [...] Take 1 tablet by mouth daily. ??? Calcium Carbonate-Vitamin D (CALCIUM 500 + D OR) Organic Plant Calcium with vitamin D3 and magnesium ??? docusate sodium (STOOL SOFTENER) 100 MG capsule Take 100 mg by mouth daily. Take 2 capsules BID ??? hypromellose 0.3 % ophthalmic gel Place [...] Negative for abdominal pain, nausea and vomiting. Neurological: Negative for headaches. Objective / Physical Exam: Filed Vitals: 05/29/21 0905 BP: 138/80 Pulse: 56 Resp: 12 Temp: 97.7 ??F (36.5 ??C) TempSrc: Temporal SpO2: 98% Weight: 68.2 kg (150 lb 6.4 oz) Height: 5' (1.524 m) Body mass index is 29.37 kg/m??. Physical Exam Vitals reviewed. Constitutional: General: [...] pulses. Heart sounds: Normal heart sounds. No murmur. No friction rub. No gallop. Pulmonary: Effort: Pulmonary effort is normal. No respiratory distress. Breath sounds: No wheezing, rhonchi or rales. Abdominal: General: [...] No results found for this visit on 05/29/21. Assessment/Plan: 1. Mixed hyperlipidemia LIPID PANEL 2. Essential hypertension 3. Sessile rectal polyp 4. Gastroesophageal reflux disease without esophagitis famotidine 20 MG tablet 5. Other fatigue - patient has HLD and is currently on pravastatin 40 mg po qhs - will recheck her lipid panel done fasting; she states she will likely get this done next week - she has HTN; her BP today is 138/80; due to her age this BP is acceptable at this time as I want to avoid dropping her blood pressure too low and causing lightheadedness and falls; for now she willcontinue lisinopril 20 mg po daily - She had a sessile polyp removed in [address] Osorio; she is due for a colonoscopy this year with Dr. Osorio in [place] because they wanted to repeat this test 3 years after her last one due to her polyp; she needs to call and schedule this with them; she states that she will work on this; shehad a hard time with the prep the last time and so will discuss other options to help clear her bowels before the procedure - she was complaining of fatigue after she had her bunion surgery, but now states that it has improved in the last week or two; can monitor for now; if fatigue worsens again later can always check some labs to make sure her iron levels are not low and TSH is fine - she likely had Zostavax at [facility] several years ago; Shalom Trinidad called [facility] as they have recordson immunizations from [facility] however the immunizations only date back 3 years ago and it does notstate that she received the shingles vaccine in that time frame; she can get Shingrix at her pharmacy Followup Plan: Return in about 3 months (around 08/29/2021) for hypertension follow-up. Instructions on the sign/symptoms [...] the patient's verbalized satisfaction. Patient Instructions Please call Dr. Osorio's office to set up your colonoscopy. Your last one was done in 2018 and therewas a polyp removed. He wanted to repeat this in 3 years. It is due this year. I have refilled famotidine for you. If you have not received Shingrix before we do recommend getting this vaccine to help protect you against Shingles. You can get this at your pharmacy. Demetrio Shore MD Family Medicine [facility] documented in this encounter Plan of Treatment Upcoming Encounters Date Type Department Care Team (Late st Contact Info) Description 11/02/2024 8:00 AM FARM EQUIPMENT MAINTENANCE SUPERVISOR Office Visit [facility] [address] [place] [address] Ella Hodge FNP [address] [place] [address] 01/19/2025 11:00 AM CDT Office Visit [facility] Medical Group Pulmonology Specialty Clinic - [address] [place] [id number] Stanley Jim MD [address] [place] [facility] [place] [address] 06/23/2025 8:20 AM CDT Office Visit [facility] [address] [facility] [place] [address] Ella Hodge [facility] [address] [place], [place] [phone] documented as of this encounter Procedures Procedure Name Priority Date/Time Associated Diagnosis Comments LIPID PANEL Routine 06/05/2021 7:23 AM CDT Mixed hyperlipidemia documented in this encounter Results * (ABNORMAL) LIPID PANEL (06/05/2021 7:23 AM CDT) CHOLESTEROL 172 0 - 200 mg/dL [facility] TRIGLYCERIDES 65 0 - 150 mg/dL [facility] HDL 62(H) 40 - 60 mg/dL [facility] LDL (CALCULATED) 97 10 - 130 mg/dL [facility] CARDIO RISK 3 [facility] Comment: ?CHOLESTEROL LEVELS [...] CHD RATIO ARE INVALID IF TRIGLYCERIDES >450 06/05/2021 7:23 AM CDT 06/05/2021 7:23 AM CDT Demetrio Shore MD LABORATORY Final Result Performing Organization Address City/State/[facility] Phone Number [facility]-[address] [address] documented in this encounter Visit Diagnoses Diagnosis Mixed hyperlipidemia- Primary Essential hypertension Unspecified essential hypertension Sessile rectal polyp Anal and rectal polyp Gastroesophageal reflux disease without esophagitis Esophageal reflux Other fatigue documented in this encounter Additional Health Concerns Assessment Noted Time PHQ-9 Depression Total Score: 0 05/29/20 9:14 AM CDT documented as of this encounter Care Teams Military Lawyer Relationship Specialty Start Date End Date Demetrio Shore MD PCP - General FAMILY PRACTICE 11/11/19 03/29/23 Joon Lewis PA PHYSICIAN REINFORCING ROD LAYER 05/09/21 documented as of this encounter
--- OUTSIDE RECORDS SUMMARY | 2024-10-24 11:57 | XMS_ITS | Encounter Summary ---
Author Organization [facility] Address [address] [facility]. [place], [place] [address] [place] [address] Care Team Providers Care Forest Officer Name Role Phone Demetrio Shore MD Primary Care Pr ovider Unavailable Joon Lewis Unavailable [phone] Callie Guerrero DO Unavailable [phone] George Osorio MD Unavailable Sergey Ramey Unavailable Jony Pruitt DPM Unavailable Gama Graves MD Unavailable [phone] Reason for Visit * Reason Onset Date Comments Lab Order 09/12/2021 Encounter Details Date Type Department Care Team (Late st Contact Info) Description 09/12/[address] [place] [address] Demetrio Shore MD Lab Order Social History Tobacco Use Types Packs/Day Years [...] Progress Notes * Julia العراقي LPN - 09/12/2021 10:04 AM CST Denice at [facility] stated she rec'd order. AURANT HOST * Julia العراقي LPN - 09/12/2021 9:56 AM CST Pt called and said DR Mcbride wanted her to recheck Lipid panel in 3 months and she is at [facility] and no order there. I looked at result note in May and Dr Mcbride wanted Lipid rechecked in 3 months. I madeorder and faxed it to [facility]. AURANT HOST * Cora Aguila - 09/12/2021 9:28 AM CST Patient is needing new lab orders so she can get refills on her medications AURANT HOST documented in this encounter Plan of Treatment Upcoming Encounters Date Type Department Care Team (Late st Contact Info) Description 11/02/2024 8:00 AM RESTAURANT HOST Office Visit [facility] [address] [place] [address] Ella Hodge FNP [address] [place] [address] 01/19/2025 11:00 AM CDT Office Visit [facility] Medical Group Pulmonology Specialty Clinic - [address] [place] [address] Stanley Jim MD [address] [place] [address] [place] [address] 06/23/2025 8:20 AM CDT Office Visit [facility] [address] [place] [address] Ella Hodge [facility] [address] [place] [address] documented as of this encounter Visit Diagnoses Not on filedocumented in this encounter Additional Health Concerns Assessment Noted Time PHQ-9 Depression Total Score: 0 07/16/20 10:32 AM CDT documented as of this encounter Care Teams Forest Officer Relationship Specialty Start Date End Date Demetrio Shore MD PCP - General FAMILY PRACTICE 11/11/19 03/29/23 Joon Lewis PA PHYSICIAN GRADUATE TEACHING ASSOCIATE 05/09/21 Callie Guerrero DO Block Hacker OBGYN 06/14/21 [place] [address] [facility] [address] [place] [phone] GASTROENTEROLOGY 06/14/21 Sergey Ramey PA [address] [place] [address] [place] [address] PHYSICIAN GRADUATE TEACHING ASSOCIATE 06/14/21 Jony Pruitt DPM [address] [place] [address], [address] [place] [address] Referring Physician PODIATRY/SURGERY 06/14/21 [place] [address] [place] [address] ORTHOPAEDIC SURGERY 06/14/21 documented as of this encounter
--- OUTSIDE RECORDS SUMMARY | 2024-10-24 11:57 | XMS_ITS | Encounter Summary ---
Author Organization [facility] Address [facility] [place], [place] [address] [place] [address] Care Team Providers Care Survey Director Name Role Phone Demetrio Shore MD Primary Care Pr ovider Unavailable Joon Lewis Unavailable [phone] Callie Guerrero DO Unavailable [phone] George Osorio MD Unavailable Sergey Ramey Unavailable [phone] Jony Pruitt DPM Unavailable [phone] Gama Graves MD Unavailable [phone] Encounter Details Date Type Department Care Team (Latest Contact Info) Description 10/04/2021 Travel Social History Tobacco Use Types Packs/Day [...] Coronavirus / COVID-19? Yes 10/04/2021 10:11 AM SUPERVISOR MATRIX documented as of this encounter Plan of Treatment Upcoming Encounters Date Type Department Care Team (Late st Contact Info) Description 11/02/2024 8:00 AM SUPERVISOR MATRIX Office Visit [address] [place] [address] Ella Hodge [facility] 201 [facility] [place] [address] 01/19/2025 11:00 AM CDT Office Visit [facility] [address] [place] [address] Stanley Jim MD [address] [place] [address] 06/23/2025 8:20 AM CDT Office Visit [address] [place] [address] Ella Hodge [address] [place] [address] documented as of this encounter Visit Diagnoses Not on filedocumented in this encounter Additional Health Concerns Infection Onset Date Last Indicated Resolved Time COVID-19 Rule Out 10/04/2021 10/04/2021 10/04/2021 11:49 AM SUPERVISOR MATRIX Assessment Noted Time PHQ-9 Depression Total Score: 0 07/16/20 21 10:32 AM CDT documented as of this encounter Care Teams Survey Director Relationship Specialty Start Date End Date Demetrio Shore MD PCP - General FAMILY PRACTICE 11/11/19 03/29/23 Joon Lewis PA PHYSICIAN FINANCIAL FOUNDATIONS REPRESENTATIVE 7/14/21 Callie Guerrero DO Adjuster Electrical Contacts OBGYN 06/14/21 [place] [address] [facility] [address] [place] [phone] GASTROENTEROLOGY 06/14/21 Sergey Ramey PA [address] [place] [address] PHYSICIAN FINANCIAL FOUNDATIONS REPRESENTATIVE 06/14/21 Jony Pruitt DPM [address] [place] [address], [address] [place] [address] Referring Physician PODIATRY/SURGERY 06/14/21 [place] [address] [place] [address] ORTHOPAEDIC SURGERY 06/14/21 documented as of this encounter
--- OUTSIDE RECORDS SUMMARY | 2024-10-24 11:57 | XMS_ITS | Encounter Summary ---
Author Organization [facility] Address [facility] [place], [place] [address] [place] [address] Care Team Providers Care Oncology Nurse Name Role Phone Demetrio Shore MD Primary Care Pr ovider Unavailable Joon Lewis Unavailable [phone] Callie Guerrero DO Unavailable [phone] George Osorio MD Unavailable Sergey Ramey Unavailable [phone] Jony Pruitt DPM Unavailable Gama Graves MD Unavailable [phone] Reason for Visit * Reason Onset Date Comments Question 10/01/2021 Encounter Details Date Type Department Care Team (Late st Contact Info) Description 10/01/[address] [place] [address] Demetrio Shore MD Question Social History Tobacco Use Types Packs/Day [...] COVID-19? No / Unsure 09/26/2021 12:16 PM SHIPPING LEAD PERSON documented as of this encounter Progress Notes * Julia العراقي LPN - 10/01/2021 1:09 PM CST I spoke with pt and she just wanted to know if she needed to be tested or just monitor self. She said they have been staying apart from one another on different ends of house. Dhe is aware she will need to quarantine for 14 days, from onset of his first day of symptoms. She has no symptoms as of now, she will be wearing a mask, good hand washing and hand samitizing. She will just moniot she said , if s/s develop then she matthew get tested. PING LEAD PERSON * Kristina Woods - 10/01/2021 12:51 PM CST Patient's is positive for COVID, and wants to know if she should come in to be tested PING LEAD PERSON documented in this encounter Plan of Treatment Upcoming Encounters Date Type Department Care Team (Late st Contact Info) Description 11/02/2024 8:00 AM SHIPPING LEAD PERSON Office Visit [facility] 201 [facility] [place] [place] [address] Ella Hodge FNP [address] [facility] [place] [address] 01/19/2025 11:00 AM CDT Office Visit [facility] [place] [address] [place] [address] Stanley Jim MD [address] [address] 06/23/2025 8:20 AM CDT Office Visit [facility] [address] [place] [address] Ella Hodge [facility] [address] [place] [address] documented as of this encounter Visit Diagnoses Not on filedocumented in this encounter Additional Health Concerns Assessment Noted Time PHQ-9 Depression Total Score: 0 07/16/20 10:32 AM CDT documented as of this encounter Care Teams Oncology Nurse Relationship Specialty Start Date End Date Demetrio Shore MD PCP - General FAMILY PRACTICE 11/11/19 03/29/23 Joon Lewis PA PHYSICIAN MIXER AND BLENDER 05/09/21 Callie Guerrero DO Senior Maintenance Technician OBGYN 06/14/21 [place] [address] [phone] GASTROENTEROLOGY 06/14/21 Sergey Ramey PA [address] [place] [address] [place] [address] PHYSICIAN MIXER AND BLENDER 06/14/21 Jony Pruitt DPM [facility], [address] [place] [address] Referring Physician PODIATRY/SURGERY 06/14/21 [place] [address] [place] [address] ORTHOPAEDIC SURGERY 06/14/21 documented as of this encounter
--- OUTSIDE RECORDS SUMMARY | 2024-10-24 11:57 | XMS_ITS | Encounter Summary ---
Author Organization [facility] Address [facility]6 [facility] [place], [place] [address] [place] [address] Care Team Providers Care Coal Cutting Machine Operator Name Role Phone Demetrio Shore MD Primary Care Pr ovider Joon Wolf Unavailable [phone] Encounter Details Date Type Department Care Team (Late st Contact Info) Description 06/05/2021 Orders Only [facility] [address] [place] [address] Demetrio Shore MD Social History Tobacco Use [...] Progress Notes * Renetta Gimenez LPN - 06/14/2021 1:28 PM CDT Pt. Notified of results. Verbalized understanding. Pt. States that she has not taken any other statins in past. Pt. States that she is willing to switch meds if Dr. Mcbride feels it is best. Pt. Uses [facility]. documented in this encounter Plan of Treatment Upcoming Encounters Date Type Department Care Team (Late st Contact Info) Description 11/02/2024 8:00 AM SCAFFOLD WORKER Office Visit [address] [place], [place] [phone] Ella Hodge [facility] 201 [facility] [place] [address] 01/19/2025 11:00 AM CDT Office Visit [facility] [address] [place] [address] Stanley Jim MD [address] [place] [address] 06/23/2025 8:20 AM CDT Office Visit [address] [place] [address] Ella Hodge [address] [place] [address] documented as of this encounter Procedures Procedure Name Priority Date/Time Associated Diagnosis Comments LIPID PANEL Routine 06/05/2021 7:23 AM CDT documented in this encounter Results * (ABNORMAL) LIPID PANEL (06/05/2021 7:23 AM CDT) [facility] Signature CHOLESTEROL 172 0 - 200 mg/dL [facility] TRIGLYCERIDES 65 0 - 150 mg/dL [facility] HDL 62(H) 40 - 60 mg/dL [facility] LDL (CALCULATED) 97 10 - 130 mg/dL [facility] CARDIO RISK 3 [facility] Comment: ?CHOLESTEROL LEVELS AND CHD RISK INTERPRETATIONS [...] MD LABORATORY Final Result Performing Organization Address City/State/[facility] Co de Phone Number [facility]-[address] [address] documented in this encounter Visit Diagnoses Not on filedocumented in this encounter Additional Health Concerns Assessment Noted Time PHQ-9 Depression Total Score: 0 05/29/20 9:14 AM CDT documented as of this encounter Care Teams Coal Cutting Machine Operator Relationship Specialty Start Date End Date Demetrio Shore MD PCP - General FAMILY PRACTICE 11/11/19 03/29/23 Joon Lewis PA PHYSICIAN DIETITIAN CHIEF 05/09/21 documented as of this encounter
--- OUTSIDE RECORDS SUMMARY | 2024-10-24 11:57 | XMS_ITS | Encounter Summary ---
Author Organization [facility] Address [address] [facility]. [place], [place] [address] [place] [address] Care Team Providers Care Hard Metals Hand Engraver Name Role Phone Demetrio Shore MD Primary Care Pr ovider Unavailable Joon Lewis Unavailable [phone] Callie Guerrero DO Unavailable [phone] George Osorio MD Unavailable Sergey Ramey Unavailable [phone] Jony Pruitt DPM Unavailable [phone] Gama Graves MD Unavailable [phone] Reason for Visit * Reason Comments Fatigue complains of tiredne ss and fatigue,on and off for 2 months; she reports she has been dreaming alot and sometimes she takes her c - pap mask off without knowing it; Encounter Details Date Type Department Care Team (Late st Contact Info) Description 07/16/2021 10:20 AM CDT Office Visit [address] [place] [address] Demetrio Shore MD Fatigue (complains of tiredness and fatigue,on and off for 2 months; she reports she has been dreaming alot and sometimes she takes her c - pap mask off without knowing it; ) Social History Tobacco Use Types Packs/Day [...] Sign Reading Time Taken Comments Blood Pressure 128/68 07/16/2021 10:22 AM CDT Pulse 72 07/16/2021 10:22 AM CDT Temperature 36.8 ??C (98.2 ??F) 07/16/2021 10:22 AM C DT Respiratory Rate 16 07/16/2021 10:22 AM CDT Oxygen Saturation 98% 07/16/2021 10:22 AM CDT Inhaled Oxygen Concentration - - Weight 66.2 kg (146 lb) 07/16/2021 10:22 AM CDT Height 152.4 cm (5') 07/16/2021 10:22 AM CDT Body Mass Index 28.51 07/16/2021 10:22 AM CDT documented in this encounter Patient Instructions * Patient Instructions* Demetrio Shore MD - 07/16/2021 10:20 AM CDT Avoid snacking when you wake up at night. This can make it harder for you to sleep because a lot ofyour energy is now being used to digest the snack you just ate. Decrease the time you spend napping in the afternoon and eventually try to stop napping in the afternoon if possible. This can make it hard for you to sleep at night. Taking off the CPAP machine at night can also contribute to fatigue since you have sleep apnea. Avoid drinking fluids close to bedtime so that you don't wake up multiple times at night to urinate. Please have your labs done. documented in this encounter Progress Notes * Demetrio Shore MD - 07/16/2021 10:20 AM CDT Love Catherine is a 75-year-old female who presents today alone for evaluation of Chief Complaint Patient presents with ??? Fatigue complains of tiredness and fatigue,on and off for 2 months; she reports she has been dreaming alot and sometimes she takes her c - pap mask off without knowing it; History of Present Illness: Here today due to complaints of fatigue: - states that she feels tired during the day and doesn't have much energy x 2 months on and off - she has JUAN and states she has been taking off of her CPAP machine while sleeping - she sees Sergey Ramey for her JUAN and will see him in August 2021 for her annual visit - she takes a nap around 1:30 pm for 2 hours - when she wakes up at night she will get up and eat a snack and go back to bed - she has had iron deficiency in the past; not currently on iron supplements - no changes in hair, no hair loss, skin changes, or changes in her bowels - no previous thyroid issues PHQ-9: Over the last two weeks, how often have you been bothered by any of the following problems? 06/14/2021 07/16/2021 LITTLE INTEREST OR PLEASURE IN DOING THINGS 0-Not at All 0-Not at All FEELING DOWN, DEPRESSSED,OR HOPELESS 0-Not at All 0-Not at All PHQ2 DEPRESSION TOTAL SCORE 0 0 DEPRESSION SCREENING TOTAL SCORE 0 0 Past Medical History: Diagnosis Date ??? Allergic [...] use: No ??? Drug use: No Health [place] due was reviewed. Medications: Current Outpatient Medications [...] by mouth daily. 90 tablet 1 ??? montelukast 10 MG tablet Take 1 tablet (10 mg total) by mouth daily. 90 tablet 1 ??? NON FORMULARY C- pap ; q hs ??? omega-3 fatty acid 1000 MG capsule Take 1,000 mg by mouth 2 (two) times daily. ??? probiotic capsule Take 1 capsule by mouth 3 (three) times daily with meals. ??? Propylene Glycol (SYSTANE BALANCE) 0.6 % Solution prn ??? rosuvastatin 20 MG tablet Take 1 tablet (20 mg total) by mouth nightly at bedtime. 90 tablet 0 ??? vitamin D3, cholecalciferol, 75 MCG (3000 UT) Tab tablet Take 1,000 Units by mouth daily. ??? zinc gluconate 50 MG Tab Take 1 tablet by mouth daily. ??? pdsdmsxqxs-lzknmzgueztij-eoslfzfp 50-325-40 MG tablet Take 1 tablet by mouth every 4 (four) hours as needed. ??? docusate sodium (STOOL SOFTENER) 100 MG capsule Take 100 mg by mouth daily. Take 2 capsules BID ??? hypromellose 0.3 % ophthalmic gel Place into both eyes 2 (two) times daily. ??? meloxicam 15 MG tablet Take 15 mg by mouth daily. ??? Naproxen Sodium (ALEVE) 220 MG Cap Indications: prn No current facility-administered medications for this [...] leg swelling. Gastrointestinal: Negative for abdominal pain, blood in stool, melena, nausea and vomiting. Genitourinary: Negative for hematuria. Neurological: Negative for headaches. Objective / Physical Exam: Filed Vitals: 07/16/21 1022 BP: 128/68 Pulse: 72 Resp: 16 Temp: 98.2 ??F (36.8 ??C) TempSrc: Temporal SpO2: 98% Weight: 66.2 kg (146 lb) Height: 5' (1.524 m) PainSc: 0 (0-10 Scale) Body mass index is 28.51 kg/m??. Physical [...] Conjunctiva/sclera: Conjunctivae normal. Neck: Vascular: No JVD. Comments: No thyromegaly Cardiovascular: Rate and Rhythm: Normal rate and regular rhythm. Pulses: Normal pulses. Heart sounds: Normal heart sounds. No murmur. No friction rub. No gallop. Pulmonary: Effort: Pulmonary effort is normal. No respiratory distress. Breath sounds: Normal breath sounds. No stridor. No wheezing, rhonchi or rales. Abdominal: General: Bowel sounds are normal. There is no distension. Palpations: Abdomen is soft. Tenderness: There is no abdominal tenderness. There is no guarding. Musculoskeletal: Cervical back: Normal range of motion and neck supple. No tenderness. Right lower leg: No edema. Left lower leg: No edema. Lymphadenopathy: Cervical: No cervical adenopathy. Skin: General: Skin is warm. Neurological: Mental Status: She is alert and oriented to person, place, and time. Psychiatric: Mood and Affect: Mood normal. Behavior: Behavior normal. Lab / In Office Testing / Radiograph review: No results found for this visit on 07/16/21. Assessment/Plan: 1. Other fatigue THYROID STIM HORMONE, TSH CBC W/DIFF AUTOMATED COMPREHENSIVE METABOLIC PANEL VITAMIN D, 25 OH 2. Obstructive sleep apnea THYROID STIM HORMONE, TSH CBC W/DIFF AUTOMATED 3. Vitamin D deficiency VITAMIN D, 25 OH - she has fatigue that is likely multifactorial; she has JUAN and doesn't wear her CPAP throughout the night which could contribute to her fatigue; she has been taking 2 hour naps during the day whichcould impair her sleep at night; she wakes up in the middle of the night and snacks which could also affect her sleep at night - advised about sleep hygiene and reducing her time she spends napping to she can sleep better at night and get a more restful sleep - wearing the CPAP machine consistently is important as JUAN is a big contributor to fatigue during the day and low energy - labs ordered which she will have done fasting tomorrow - she has had low vitamin D levels in the past so can recheck this Followup Plan: Return for follow-up after labs are done. Instructions on the sign/symptoms of worsening problems [...] to the patient's verbalized satisfaction. Patient Instructions Avoid snacking when you wake up at night. This can make it harder for you to sleep because a lot ofyour energy is now being used to digest the snack you just ate. Decrease the time you spend napping in the afternoon and eventually try to stop napping in the afternoon if possible. This can make it hard for you to sleep at night. Taking off the CPAP machine at night can also contribute to fatigue since you have sleep apnea. Avoid drinking fluids close to bedtime so that you don't wake up multiple times at night to urinate. Please have your labs done. Demetrio Shore MD Family Medicine [facility] * Renetta Gimenez LPN - 07/16/2021 10:20 AM CDT Pt. Notified. Verbalized understanding. documented in this encounter Plan of Treatment Upcoming Encounters Date Type Department Care Team (Late st Contact Info) Description 11/02/2024 8:00 AM PLASTIC CNC MACHINE OPERATOR Office Visit [address] [place] [address] Ella Hodge [address] [place] [address] 01/19/2025 11:00 AM CDT Office Visit [facility] [address] [place] [address] Stanley Jim MD [address] [place] [address] 06/23/2025 8:20 AM CDT Office Visit [address] [place] [address] Ella Hodge [address] [place] [address] documented as of this encounter Procedures Procedure Name Priority Date/Time Associated Diagnosis Comments VITAMIN D, 25 OH Routine 01/16/2023 12:0 0 AM CDT Other fatigue Vitamin D deficiency COMPREHENSIVE METABOLIC PANEL Routine 07/17/2021 9:04 AM CDT Other fatigue CBC W/DIFF AUTOMATED Routine 07/17/2021 9:04 AM CDT Other fatigue Obstructive sleep apnea THYROID STIM HORMONE TSH Routine 07/17/2021 9:04 AM CDT Other fatigue Obstructive sleep apnea documented in this encounter Results * VITAMIN D, 25 OH (01/16/2023 12:00 AM CDT) VITAMIN D 25 HYDROXY S/P/B 42 30 - 100 ng/mL [facility] 01/16/2023 07/17/2021 9:0 4 AM CDT Demetrio Shore MD LABORATORY Edited Result - Final [facility] [address] [place] [address] * (ABNORMAL) COMPREHENSIVE METABOLIC PANEL (07/17/2021 9:04 AM CDT) Pathologist [facility] GLUCOSE 101(H) 70 - 99 mg/dL [facility] SODIUM S/P/B 140 136 - 145 mmol/L [facility] POTASSIUM S/P/B 4.6 3.5 - 5.1 mmol/L [facility] CHLORIDE S/P/B 105 100 - 108 mmol/L [facility] CO2 27 21 - 32 mmol/L [facility] BUN 18 7 - 18 mg/dL [facility] CREATININE S/P/B 1.0 0.5 - 1.2 mg/dL [facility] TOTAL PROTEIN S/P/B 7.7 6.4 - 8.2 g/dL [facility] CALCIUM S/P/B 9.6 8.5 - 10.1 mg/dL [facility] BILIRUBIN TOTAL S/P/B 0.6 0.2 - 1.2 mg/dL [facility] ALKALINE PHOSPHATASE S/P/B 53 50 - 136 U/L [facility] ALBUMIN S/P/B 4.2 3.4 - 5.0 g/dL [facility] AST 22 15 - 37 U/L [facility] ALT 26 14 - 55 U/L [facility] PATIENT'S AGE 75 YEARS [facility] EGFR NON-AFR. AMER. 57 ml/min [facility] EGFR AFR. AMER. 69 ml/min [facility] ANION GAP 13 8 - 20 [facility] Comment: ?GFR INTERPRETATION ??According to the National Kidney Foundation, normal results range from 90 to 120 mL/min/1.73 m2. Older people will have lower than normal GFR levels, because GFR decreases with age. Normal value ranges may vary slightly among different laboratories 07/17/2021 9:04 AM CDT 07/17/2021 9:04 AM CDT Demetrio Shore MD LABORATORY Final Result [address] [address] * (ABNORMAL) CBC W/DIFF AUTOMATED (07/17/2021 9:04 AM CDT) WBC 4.8 4.5 - 11.0 cmm [facility] RBC 4.0 4.0 - 5.2 M/cumm [facility] HGB 11.7(L) 12.0 - 16.0 g/dL [facility] HCT 37.6 36.0 - 46.0 % [facility] MCV 94.7 80.0 - 100 fL [facility] MCH 29.5 26.0 - 34.0 pg [facility] MCHC 31.1 31.0 - 37.0 g/dL [facility] RDW 12.7 11.6 - 14.8 % [facility] PLT 269 140 - 415 cmm [facility] MPV 10 7 - 12 fl [facility] ABS. NEUTROPHILS 2.28 1.50 - 8.00 x10^3 [facility] ABS. LYMPHOCYTES 1.71 0.21 - 5.42 x10^3 [facility] ABS. MONOCYTES 0.54 0.04 - 1.37 x10^3 [facility] ABS. EOSINOPHILS 0.19 0.00 - 0.68 x10^3 [facility] ABS. BASOPHILS 0.03 0.00 - 0.08 x10^3 [facility] ABS. IMMATURE GRANULOCYTES 0.00 0.00 - 0.06 x10^3 [facility] NEUTROPHILS % 48.0 40.0 - 74.0 % [facility] LYMPHOCYTES % 36.0 14.0 - 46.0 % [facility] MONOCYTES % 11.4 4.0 - 13.0 % [facility] EOSINOPHILS % 4.0 0.0 - 7.0 % [facility] BASOPHILS % 0.6 0.0 - 3.0 % [facility] IMMATURE GRANS % 0.00 0.00 - 0.43 % [facility] MANUAL DIFFERENTIAL NOT INDICATED [facility] WBC MORPHOLOGY NOT INDICATED [facility] RBC MORPHOLOGY NOT INDICATED [facility] PLT MORPH. NOT INDICATED [facility] 07/17/2021 9:04 AM CDT 07/17/2021 9:04 AM CDT Demetrio Shore MD LABORATORY Final Result Performing Organization Address City/State/[facility] Co de Phone Number [facility] [address] [place] [address] * THYROID STIM HORMONE, TSH (07/17/2021 9:04 AM CDT) TSH 1.631 0.358 - 3.740 uIU/mL [facility] Comment: ? TSH INTERPRETATION ?HIGH DOSES OF BIOTIN MAY INTERFERE WITH THIS TEST RESULT. ? CORRELATION TO CLINICAL PRESENTATION RECOMMENDED 07/17/2021 9:04 AM CDT 07/17/2021 9:04 AM CDT Demetrio Shore MD LABORATORY Final Result [facility] [address] [address] documented in this encounter Visit Diagnoses Diagnosis Other fatigue- Primary Obstructive sleep apnea Obstructive sleep apnea (adult) (pediatric) Vitamin D deficiency Unspecified vitamin D deficiency documented in this encounter Additional Health Concerns Assessment Noted Time PHQ-9 Depression Total Score: 0 07/16/20 10:32 AM CDT documented as of this encounter Care Teams Hard Metals Hand Engraver Relationship Specialty Start Date End Date Demetrio Shore MD PCP - General FAMILY PRACTICE 11/11/19 03/29/23 Joon Lewis PA PHYSICIAN TURN OUT 05/09/21 Callie Guerrero DO Wrapper Sorter OBGYN 06/14/21 [place] [address] [phone] GASTROENTEROLOGY 06/14/21 Sergey Ramey PA [address] [place] [address] PHYSICIAN TURN OUT 06/14/21 Jony Pruitt DPM [address] [facility], [address] [place] [address] Referring Physician PODIATRY/SURGERY 06/14/21 [place] [address] [place] [address] ORTHOPAEDIC SURGERY 06/14/21 documented as of this encounter
--- OUTSIDE RECORDS SUMMARY | 2024-10-24 11:57 | XMS_ITS | Encounter Summary ---
Author Organization [facility] Address [facility]. [place], [place] [address] [place] [address] Care Team Providers Care Lock Operator Name Role Phone Demetrio Shore MD Primary Care Pr ovider Unavailable Joon Lewis Unavailable [phone] Callie Guerrero DO Unavailable [phone] George Osorio MD Unavailable Sergey Ramey Unavailable Jony Pruitt DPM Unavailable [phone] Gama Graves MD Unavailable [phone] Encounter Details Date Type Department Care Team (Latest Contact Info) Description 06/14/2021 Travel Social History Tobacco Use Types Packs/Day [...] st Contact Info) Description 11/02/2024 8:00 AM SURVEYOR Office Visit [address] [place] [address] Ella Hodge [facility] 201 [facility] [place] [address] 01/19/2025 11:00 AM CDT Office Visit [facility] [address] [place] [address] Stanley Jim MD [address] [place] [address] 06/23/2025 8:20 AM CDT Office Visit [address] [place] [address] lEla Hodge [address] [place] [address] documented as of this encounter Visit Diagnoses Not on filedocumented in this encounter Additional Health Concerns Assessment Noted Time PHQ-9 Depression Total Score: 0 06/14/20 8:46 AM CDT documented as of this encounter Care Teams Lock Operator Relationship Specialty Start Date End Date Demetrio Shore MD PCP - General FAMILY PRACTICE 11/11/19 03/29/23 Joon Lewis PA PHYSICIAN SET UP MECHANIC COATING MACHINES 05/09/21 Callie Guerrero DO Party Host/Hostess OBGYN 06/14/21 [place] [address] [facility] [address] [place] [address] GASTROENTEROLOGY 06/14/21 Sergey Ramey PA [address] [place] [address] PHYSICIAN SET UP MECHANIC COATING MACHINES 06/14/21 Jony Pruitt DPM [address] [place] [address], [address] [place] [address] Referring Physician PODIATRY/SURGERY 06/14/21 [place] [address] [place] [address] ORTHOPAEDIC SURGERY 06/14/21 documented as of this encounter
--- OUTSIDE RECORDS SUMMARY | 2024-10-24 11:57 | XMS_ITS | Encounter Summary ---
Author Organization [facility] Address [facility]. [place], [place] [address] [place] [address] Care Team Providers Care Service Observer Chief Name Role Phone Demetrio Shore MD Primary Care Pr ovider Unavailable Joon Lewis Unavailable [phone] Callie Guerrero DO Unavailable [phone] George Osorio MD Unavailable Sergey Ramey Unavailable Jony Pruitt DPM Unavailable Gama Graves MD Unavailable [phone] Reason for Visit * Reason Onset Date Comments COVID-19 10/05/2021 Encounter Details Date Type Department Care Team (Late st Contact Info) Description 10/05/2021 Telephone [facility] [address] [place] [address] Ella Hodge [place] [address] [place] [address] COVID-19 Social History Tobacco Use Types Packs/Day Years [...] Coronavirus / COVID-19? Yes 10/04/2021 10:11 AM MANAGER HEALTH documented as of this encounter Progress Notes * THEODORA Kendall - 10/05/2021 3:29 PM CST Treatment is being provided to this patient because the patient is COVID-19 positive. Onset of symptoms: 10/03/2021 Select the applicable HIGH risk criteria: Older age (for example age = 65 years of age) and Cardiovascular disease (including congential heart disease) or hypertension ORDERING PHYSICIAN/PRACTITIONER STATEMENT OF INFORMED CONSENT: I have discussed with the patient or the patient???s legal union contract representative the risk of complications, the side effects, the potential benefits of performing the planned treatment, the likelihood of success, potential problems related to recovery from the treatment, and any appropriate alternative options (including the option of not performing the treatment) associated with the planned treatment, including the risks and benefits of such alternatives, and answered any questions that the patient may have had regarding the planned treatment. In addition to the risks and benefits and impact of delaying COVID-19 vaccine for 90 days after injections have been reviewed with the patient. Details of monoclonal antibodies were discussed at the visit on 10/04 [facility] * Renetta Gimenez LPN - 10/05/2021 3:08 PM CST Pt. Called office back to let Bob Hodge know that she has decided to proceed with Covid monoclonal antibody injections through [place] office. Fany, lodging house keeper at [place], notified of need for the injection and is arranging appt. Date/time. S. Comrie placing order for injection. Fany returned call and states that pt. Is scheduled for covid antibody injection on 10/09/2021 @1PM. Pt. To arrive 10-15 min. Early to appt. [address] [place], [place] Pt. To stay in car and call [phone], nurse will come get pt. And escort pt. In to facility. Pt. Notified of all. Verbalized understanding. [facility] documented in this encounter Plan of Treatment Upcoming Encounters Date Type Department Care Team (Late st Contact Info) Description 11/02/2024 8:00 AM MANAGER HEALTH Office Visit [address] [place] [address] Ella Hodge FNP 201 [facility] [place] [address] 01/19/2025 11:00 AM CDT Office Visit [facility] - [address] [place] [address] Stanley Jim MD [address] [place] [address] 06/23/2025 8:20 AM CDT Office Visit [address] [place] [address] Ella Hodge FNP [address] [facility] [place] [address] documented as of this encounter Visit Diagnoses Not on filedocumented in this encounter Additional Health Concerns Infection Onset Date Last Indicated Resolved Time COVID-19 Confirmed 10/04/2021 10/04/2021 12:32 AM MANAGER HEALTH COVID-19 Rule Out 10/05/2021 10/05/2021 10/05/2021 2:12 PM MANAGER HEALTH Assessment Noted Time PHQ-9 Depression Total Score: 0 07/16/20 10:32 AM CDT documented as of this encounter Care Teams Service Observer Chief Relationship Specialty Start Date End Date Demertio Shore MD PCP - General FAMILY PRACTICE 11/11/19 03/29/23 Joon Lewis PA PHYSICIAN ASSOCIATE DIRECTOR CAREER SERVICES 05/09/21 Callie Guerrero DO Clutch Specialist OBGYN 06/14/21 [place] [address] [id number] GASTROENTEROLOGY 06/14/21 Sergey Ramey PA [address] [place] [address] PHYSICIAN ASSOCIATE DIRECTOR CAREER SERVICES 06/14/21 Jony Pruitt DPM [address] [place] [address], [address] [place] [address] Referring Physician PODIATRY/SURGERY 06/14/21 [place] [address] [place] [address] ORTHOPAEDIC SURGERY 06/14/21 documented as of this encounter
--- OUTSIDE RECORDS SUMMARY | 2024-10-24 11:57 | XMS_ITS | Encounter Summary ---
Author Organization [facility] Address [facility]6 [facility]. [place], [place] [address] [place] [address] Care Team Providers Care Health Officer Name Role Phone Demetrio Shore MD Primary Care Pr ovider Unavailable Joon Lewis Unavailable [phone] Callie Guerrero DO Unavailable [phone] George Osorio MD Unavailable Sergey Ramey Unavailable oJny Pruitt DPM Unavailable [phone] Gama Graves MD Unavailable [phone] Encounter Details Date Type Department Care Team (Late st Contact Info) Description 07/17/2021 Abstract [facility] [address] [place] [address] Demetrio Shore MD Social History Tobacco Use [...] Coronavirus / COVID-19? Yes 10/14/2021 3:44 PM GRAIN ELEVATOR SUPERINTENDENT documented as of this encounter Plan of Treatment Upcoming Encounters Date Type Department Care Team (Late st Contact Info) Description 11/02/2024 8:00 AM GRAIN ELEVATOR SUPERINTENDENT Office Visit [facility] [address] [facility] [place] [place] [address] Ella Hodge FNP [address] [facility] [place] [address] 01/19/2025 11:00 AM CDT Office Visit [facility] - [address] [place] [address] Stanley Jim MD [address] [place] [address] 06/23/2025 8:20 AM CDT Office Visit [facility] [address] [facility] [place] [address] Ella Hodge FNP [address] [facility] [place] [address] documented as of this encounter Visit Diagnoses Not on filedocumented in this encounter Additional Health Concerns Infection Onset Date Last Indicated Resolved Time COVID-19 Rule Out 10/04/2021 10/04/2021 10/04/2021 11:49 AM GRAIN ELEVATOR SUPERINTENDENT COVID-19 Confirmed 10/04/2021 10/04/2021 12:32 AM GRAIN ELEVATOR SUPERINTENDENT COVID-19 Rule Out 10/05/2021 10/05/2021 10/05/2021 2:12 PM GRAIN ELEVATOR SUPERINTENDENT Assessment Noted Time PHQ-9 Depression Total Score: 0 07/16/20 10:32 AM CDT documented as of this encounter Care Teams Health Officer Relationship Specialty Start Date End Date Demetrio Shore MD PCP - General FAMILY PRACTICE 11/11/19 03/29/23 Joon Lewis PA PHYSICIAN STEEL CONSTRUCTION WORKER 05/09/21 Callie Guerrero DO Engraver OBGYN 06/14/21 [place] [address] [address] GASTROENTEROLOGY 06/14/21 Sergey Ramey PA [address] [place] [address] PHYSICIAN STEEL CONSTRUCTION WORKER 06/14/21 Jony Pruitt DPM [address] [place] [address], [address] [place] [address] Referring Physician PODIATRY/SURGERY 06/14/21 [place] [address] [place] [address] ORTHOPAEDIC SURGERY 06/14/21 documented as of this encounter
--- OUTSIDE RECORDS SUMMARY | 2024-10-24 11:57 | XMS_ITS | Encounter Summary ---
Author Organization [facility] Address [facility]. [place], [place] [address] [place] [address] Care Team Providers Care Surface Logging Systems Logger Name Role Phone Demetrio Shore MD Primary Care Pr ovider Unavailable Joon Lewis Unavailable [phone] Callie Guerrero DO Unavailable [phone] George Osorio MD Unavailable Sergey Ramey Unavailable [phone] Jony Pruitt DPM Unavailable [phone] Gama Graves MD Unavailable [phone] Encounter Details Date Type Department Care Team (Latest Contact Info) Description 07/16/2021 Travel Social History Tobacco Use Types Packs/Day [...] st Contact Info) Description 11/02/2024 8:00 AM NEEDLE LEADER Office Visit [address] [place] [address] Ella Hodge [facility] 201 [facility] [place] [address] 01/19/2025 11:00 AM CDT Office Visit [facility] Medical [facility] [address] [place] [address] Stanley Jim MD [address] [place] [address] 06/23/2025 8:20 AM CDT Office Visit [address] [place] [address] Ella Hodge [address] [place] [address] documented as of this encounter Visit Diagnoses Not on filedocumented in this encounter Additional Health Concerns Assessment Noted Time PHQ-9 Depression Total Score: 0 07/16/20 10:32 AM CDT documented as of this encounter Care Teams Surface Logging Systems Logger Relationship Specialty Start Date End Date Demetrio Shore MD PCP - General FAMILY PRACTICE 11/11/19 03/29/23 Joon Lewis PA PHYSICIAN OUTSOLE SKIVER 05/09/21 Callie Guerrero DO Food Critic OBGYN 06/14/21 [place] [address] [facility] 101 [place] [address] GASTROENTEROLOGY 06/14/21 Sergey Ramey PA [address] [place] [address] PHYSICIAN OUTSOLE SKIVER 06/14/21 Jony Pruitt DPM [address] [place] [address], [address] [place] [address] Referring Physician PODIATRY/SURGERY 06/14/21 [place] [address] [place] [address] ORTHOPAEDIC SURGERY 06/14/21 documented as of this encounter
--- OUTSIDE RECORDS SUMMARY | 2024-10-24 11:57 | XMS_ITS | Encounter Summary ---
Author Organization [facility] Address [facility]6 [facility]. [place], [place] [address] [place] [address] Care Team Providers Care Operator Vacuum Name Role Phone Demetrio Shore MD Primary Care Pr ovider Unavailable Joon Lewis Unavailable [phone] Callie Guerrero DO Unavailable [phone] George Osorio MD Unavailable Sergey Ramey Unavailable Jony Pruitt DPM Unavailable [phone] Gama Graves MD Unavailable [phone] Encounter Details Date Type Department Care Team (Latest Contact Info) Description 09/12/2021 Scan HEALTH INFO SRVCS Scanned, Documents Social [...] Coronavirus / COVID-19? Yes 10/08/2021 1:23 PM COMPRESSION MOLDING MACHINE OPERATOR documented as of this encounter Plan of Treatment Upcoming Encounters Date Type Department Care Team (Late st Contact Info) Description 11/02/2024 8:00 AM COMPRESSION MOLDING MACHINE OPERATOR Office Visit [address] [place] [address] Ella Hodge [facility] [address] [place] [address] 01/19/2025 11:00 AM CDT Office Visit [facility] [address] [place] [address] Stanley Jim MD [address] [place] [address] 06/23/2025 8:20 AM CDT Office Visit [address] [place] [address] Ella Hodge [address] [place] [address] documented as of this encounter Visit Diagnoses Not on filedocumented in this encounter Additional Health Concerns Infection Onset Date Last Indicated Resolved Time COVID-19 Rule Out 10/04/2021 10/04/2021 10/04/2021 11:49 AM COMPRESSION MOLDING MACHINE OPERATOR COVID-19 Confirmed 10/04/2021 10/04/2021 12:32 AM COMPRESSION MOLDING MACHINE OPERATOR COVID-19 Rule Out 10/05/2021 10/05/2021 10/05/2021 2:12 PM COMPRESSION MOLDING MACHINE OPERATOR Assessment Noted Time PHQ-9 Depression Total Score: 0 07/16/20 21 10:32 AM CDT documented as of this encounter Care Teams Operator Vacuum Relationship Specialty Start Date End Date Demetrio Shore MD PCP - General FAMILY PRACTICE 11/11/19 03/29/23 Joon Lewis PA PHYSICIAN CIRCUS PERFORMER 05/09/21 Callei Guerrero Displayer Merchandise OBGYN 06/14/21 [place] [address] [place] [address] [phone] GASTROENTEROLOGY 06/14/21 Sergey Ramey PA [address] [place] [address] PHYSICIAN CIRCUS PERFORMER 06/14/21 Jony Pruitt DPM [address] [place] [address], [address] [place] [address] Referring Physician PODIATRY/SURGERY 06/14/21 [place] [address] [place] [address] ORTHOPAEDIC SURGERY 06/14/21 documented as of this encounter
--- OUTSIDE RECORDS SUMMARY | 2024-10-24 11:57 | XMS_ITS | Encounter Summary ---
Author Organization [facility] Address [address] [place] [address]. [place], [place] [address] [place] [address] Care Team Providers Care Security And Compliance Analyst Name Role Phone Demetrio Shore MD Primary Care Pr ovider Joon Wolf Unavailable [phone] Encounter Details Date Type Department Care Team (Latest Contact Info) Description 05/29/2021 Travel Social History Tobacco Use Types Packs/Day [...] st Contact Info) Description 11/02/2024 8:00 AM PAGINATOR Office Visit [address] [place] [address] Ella Hodge [facility] 201 [facility] [place] [address] 01/19/2025 11:00 AM CDT Office Visit [facility] - [address] [place] [address] Stanley Jim MD [address] [place] [address] 06/23/2025 8:20 AM CDT Office Visit [address] [place] [address] Ella Hodge [facility] 201 [facility] [place] [address] documented as of this encounter Visit Diagnoses Not on filedocumented in this encounter Additional Health Concerns Assessment Noted Time PHQ-9 Depression Total Score: 0 05/29/20 9:14 AM CDT documented as of this encounter Care Teams Security And Compliance Analyst Relationship Specialty Start Date End Date Demetrio Shore MD PCP - General FAMILY PRACTICE 11/11/19 03/29/23 Joon Lewis PA PHYSICIAN MACHINE SET UP OPERATOR 05/09/21 documented as of this encounter
--- OUTSIDE RECORDS SUMMARY | 2024-10-24 11:58 | XMS_ITS | Encounter Summary ---
Author Organization [facility] Address [facility]. [place], [place] [address] [place] [address] Care Team Providers Care Equipment Maintenance Technician Name Role Phone Demetrio Shore MD Primary Care Pr ovider Unavailable Joon Lewis Unavailable [phone] Callie Guerrero DO Unavailable [phone] George Osorio MD Unavailable Sergey Ramey Unavailable [phone] Jony Pruitt DPM Unavailable Gama Graves MD Unavailable [phone] Encounter Details Date Type Department Care Team (Late st Contact Info) Description 06/14/2020 Abstract [facility] [address] [place] [address] Demetrio Shore MD Social History Tobacco Use [...] st Contact Info) Description 11/02/2024 8:00 AM GEOLOGY ASSOCIATE Office Visit [address] [place] [address] [place] [address] 01/19/2025 11:00 AM CDT Office Visit [facility] [address] [place] [address] Stanley Jim MD [address] [place] [address] 06/23/2025 8:20 AM CDT Office Visit [address] [place] [address] [address] [place] [address] documented as of this encounter Visit Diagnoses Not on filedocumented in this encounter Care Teams Equipment Maintenance Technician Relationship Specialty Start Date End Date Demetrio Shore MD PCP - General FAMILY PRACTICE 11/11/19 03/29/23 Joon Lewis PA PHYSICIAN APPLICATION SECURITY CONSULTANT 05/09/21 Callie Guerrero DO Magazine Repairer OBGYN 06/14/21 [place] [address] [address] [address] GASTROENTEROLOGY 06/14/21 Sergey Ramey PA [address] [place] [address] PHYSICIAN APPLICATION SECURITY CONSULTANT 06/14/21 Jony Pruitt DPM [address] [place] [address], [address] [place] [address] Referring Physician PODIATRY/SURGERY 06/14/21 [place] [address] [place] [address] ORTHOPAEDIC SURGERY 06/14/21 documented as of this encounter
--- OUTSIDE RECORDS SUMMARY | 2024-10-24 11:58 | XMS_ITS | Encounter Summary ---
Author Organization [facility] Address [address] [place] [address]. [place], [place] [address] [place] [address] Care Team Providers Care Ice Guard Inspector Name Role Phone Demetrio Shore MD Primary Care Pr ovider Unavailable Encounter Details Date Type Department Care Team (Latest Contact Info) Description 08/28/2020 Travel Social History Tobacco Use Types Packs/Day [...] have Coronavirus / COVID-19? No / Unsure 08/28/2020 3:35 PM REGISTERED DENTAL ASSISTANT RDA documented as of this encounter Plan of Treatment Upcoming Encounters Date Type Department Care Team (Late st Contact Info) Description 11/02/2024 8:00 AM REGISTERED DENTAL ASSISTANT RDA Office Visit [facility] [address] [place] [id number] Ella Hodge, [address] [place] [address] 01/19/2025 11:00 AM CDT Office Visit [facility] Medical [facility] Pul[facility] - [address] [place] [address] Stanley Jim MD [address] [place] [address] 06/23/2025 8:20 AM CDT Office Visit [facility] 201 [facility] [place] [address] Ella Hodge [facility] 201 [facility] [place] [address] documented as of this encounter Visit Diagnoses Not on filedocumented in this encounter Care Teams Ice Guard Inspector Relationship Specialty Start Date End Date Demetrio Shore MD PCP - General FAMILY PRACTICE 11/11/19 03/29/23 documented as of this encounter
--- OUTSIDE RECORDS SUMMARY | 2024-10-24 11:58 | XMS_ITS | Encounter Summary ---
Author Organization [facility] Address [address] [place] [address]. [place], [place] [address] [place] [address] Care Team Providers Care Medical Management Trainer Name Role Phone Demetrio Shore MD Primary Care Pr ovider Unavailable Reason for Visit * Reason Onset Date Comments Refill Request 02/02/2020 Encounter Details Date Type Department Care Team (Late st Contact Info) Description 02/02/2020 Telephone [facility] [address] [facility] [place] [address] Demetrio Shore MD Refill Request Social History Tobacco Use Types [...] Progress Notes * Demetrio Shore MD - 02/02/2020 12:07 PM CDT Received a fax for a 90 day supply of pravastatin. Refilled this today. Demetrio Shore MD Family Medicine [facility], [facility] documented in this encounter Plan of Treatment Upcoming Encounters Date Type Department Care Team (Late st Contact Info) Description 11/02/2024 8:00 AM STONEWORKER Office Visit [address] [place] [address] Ella Hodge [address] [place] [address] 01/19/2025 11:00 AM CDT Office Visit [facility] [address] [place] [address] Stanley Jim MD [address] [place] [address] 06/23/2025 8:20 AM CDT Office Visit [address] [place] [address] Ella Hodge [address] [place] [address] documented as of this encounter Visit Diagnoses Diagnosis Hyperlipidemia Other and unspecified hyperlipidemia documented in this encounter Care Teams Medical Management Trainer Relationship Specialty Start Date End Date Demetrio Shore MD PCP - General FAMILY PRACTICE 11/11/19 03/29/23 documented as of this encounter
--- OUTSIDE RECORDS SUMMARY | 2024-10-24 11:58 | XMS_ITS | Encounter Summary ---
Author Organization [facility] Address [address] [place] [address]. [place], [place] [address] [place] [address] Care Team Providers Care Thermal Technician Name Role Phone Demetrio Shore MD Primary Care Pr ovider Unavailable Encounter Details Date Type Department Care Team (Late st Contact Info) Description 05/30/2020 Orders Only [address] [place] [address] Edith Trinidad RN Social History Tobacco Use [...] st Contact Info) Description 11/02/2024 8:00 AM ROPE CLEANER Office Visit [facility] [address] [facility] [place] [address] Ella Hodge, [facility] [address] [place] [address] 01/19/2025 11:00 AM CDT Office Visit [facility] - [address] [place] [address] Stanley Jim MD [address] [place] [address] 06/23/2025 8:20 AM CDT Office Visit [facility] [address] [place] [address] Ella Hodge [facility] [address] [place] [address] documented as of this encounter Visit Diagnoses Diagnosis Hyperlipidemia Other and unspecified hyperlipidemia documented in this encounter Care Teams Thermal Technician Relationship Specialty Start Date End Date Demetrio Shore MD PCP - General FAMILY PRACTICE 11/11/19 03/29/23 documented as of this encounter
--- OUTSIDE RECORDS SUMMARY | 2024-10-24 11:58 | XMS_ITS | Encounter Summary ---
Author Organization [facility] Address [address] [place] [address]. [place], [place] [id number] [place] [address] Care Team Providers Care Venetian Blind Installer Name Role Phone Demetrio Shore MD Primary Care Pr ovider Unavailable Encounter Details Date Type Department Care Team (Latest Contact Info) Description 09/13/2020 Scan HEALTH INFO SRVCS Scanned, Documents Social [...] COVID-19? No / Unsure 08/28/2020 3:35 PM SPECIAL POPULATION PARAPROFESSIONAL documented as of this encounter Plan of Treatment Upcoming Encounters Date Type Department Care Team ( Contact Info) Description 11/02/2024 8:00 AM SPECIAL POPULATION PARAPROFESSIONAL Office Visit [address] [place] [address] Ella Hodge [facility] [address] [facility] [place] [address] 01/19/2025 11:00 AM CDT Office Visit [facility] - [address] [place] [address] Stanley Jim MD [address] [place] [address] 06/23/2025 8:20 AM CDT Office Visit [facility] [address] [facility] [place] [address] Ella Hodge [address] [place] [address] documented as of this encounter Visit Diagnoses Not on filedocumented in this encounter Care Teams Venetian Blind Installer Relationship Specialty Start Date End Date Demetrio Shore MD PCP - General FAMILY PRACTICE 11/11/19 03/29/23 documented as of this encounter
--- OUTSIDE RECORDS SUMMARY | 2024-10-24 11:58 | XMS_ITS | Encounter Summary ---
Author Organization [facility] Address [facility]. [place], [place] [address] [place] [address] Care Team Providers Care Race Engine Builder Name Role Phone Demetrio Shore MD Primary Care Pr ovider Unavailable Joon Lewis Unavailable [phone] Callie Guerrero DO Unavailable George Osorio MD Unavailable Sergey Ramey Unavailable Jony Pruitt DPM Unavailable Gama Graves MD Unavailable Encounter Details Date Type Department Care Team (Late st Contact Info) Description 02/26/2021 Abstract [facility] [address] [place] [address] Demetrio Shore MD Social History Tobacco Use [...] st Contact Info) Description 11/02/2024 8:00 AM LUMBER GRADER Office Visit [address] [place] [address] Ella Hodge [address] [place] [address] 01/19/2025 11:00 AM CDT Office Visit [facility] [address] [place] [address] Stanley Jim MD [address] [place] [address] 06/23/2025 8:20 AM CDT Office Visit [address] [place] [address] Ella Hodge [address] [place] [address] documented as of this encounter Visit Diagnoses Not on filedocumented in this encounter Care Teams Race Engine Builder Relationship Specialty Start Date End Date Demetrio Shore MD PCP - General FAMILY PRACTICE 11/11/19 03/29/23 Joon Lewis PA PHYSICIAN RNP 05/09/21 Callie Guerrero DO Automatic Pinsetter Adjuster OBGYN 06/14/21 [place] [address] [address] [facility] [address] [place] [address] GASTROENTEROLOGY 06/14/21 Sergey Ramey PA [address] [place] [address] PHYSICIAN RNP 06/14/21 Jony Pruitt DPM [address] [place] [address], [address] [place] [address] Referring Physician PODIATRY/SURGERY 06/14/21 [place] [address] [place] [address] ORTHOPAEDIC SURGERY 06/14/21 documented as of this encounter
--- OUTSIDE RECORDS SUMMARY | 2024-10-24 11:58 | XMS_ITS | Encounter Summary ---
Author Organization [facility] Address [address] [place] [address]. [place], [place] [address] [place] [address] Care Team Providers Care Global Head Advertiser Solutions Name Role Phone Demetrio Shore MD Primary Care Pr ovider Unavailable Reason for Visit * Reason Comments Follow Up 3 month-no longer ta diana iron Encounter Details Date Type Department Care Team (Late st Contact Info) Description 03/15/2020 8:00 AM CDT Office Visit [address] [place] [address] Demetrio Shore MD Follow Up (3 month-no longer taking iron ) Social History Tobacco Use Types Packs/Day [...] have Coronavirus / COVID-19? No / Unsure 03/15/2020 7:52 AM CDT documented as of this encounter Last Filed Vital Signs Vital Sign Reading Time Taken Comments Blood Pressure 128/70 03/15/2020 8:01 AM CDT Pulse 68 03/15/2020 8:01 AM CDT Temperature 36.9 ??C (98.4 ??F) 03/15/2020 8:01 AM CD T Respiratory Rate 16 03/15/2020 8:01 AM CDT Oxygen Saturation - - Inhaled Oxygen Concentration - - Weight 67.6 kg (149 lb) 03/15/2020 8:01 AM CDT Height - - Body Mass Index 29.1 12/22/2019 10:17 AM HEART COORDINATOR documented in this encounter Patient Instructions * Patient Instructions* Demetrio Shore MD - 03/15/2020 8:00 AM CDT Your blood pressure in the office looks good today. Continue lisinopril 20 mg one pill daily You don't need to take your iron pills anymore. We will check labs in 3 months at your next visit. documented in this encounter Progress Notes * Demetrio Shore MD - 03/15/2020 8:00 AM CDT Love Catherine is a 74-year-old female who presents today alone for evaluation of Chief Complaint Patient presents with ??? Follow Up 3 month-no longer taking iron History of Present Illness: Patient is here for follow-up of her hypertension: - she is currently on lisinopril 20 mg PO daily - hasn't been checking her BP at home in awhile - she states she feels good; no chest pain, palpitations, SOB - she is compliant with her meds - she is no longer taking iron; she was found to have low hemoglobin levels after her right hip surgery - she does take a multivitamin Mammogram: - her last mammogram for breast cancer screening was in October 2018 - she sees an Obgyn and was supposed to have another one this year, but is not sure if the order isexpire or not - will like to have it ordered today - no complaints today - since her hip surgery she is feeling a lot better and is sleeping well now Past Medical History: Diagnosis Date ??? Allergic rhinitis ??? Heartburn ??? Hip pain ??? Hypertension Past Surgical History: Procedure Laterality Date ??? BREAST BIOPSY ??? COLONOSCOPY ??? TOTAL HIP ARTHROPLASTY Right 11/17/2019 Family History Problem Relation Name Age of Onset ??? Other (TIA) Mother ??? Colon Cancer Brother ??? Migraines Daughter Social History Tobacco Use ??? Smoking status: Never Smoker ??? Smokeless tobacco: Never Used Substance Use Topics ??? Alcohol use: No Frequency: Never ??? Drug use: No Health Maitenance due was reviewed. Medications: Current Outpatient Medications Medication Sig Dispense Refill ??? Calcium Carbonate-Vitamin D (CALCIUM 500 + D OR) Organic Plant Calcium with vitamin D3 and magnesium ??? cetirizine 10 MG tablet Take 10 mg by mouth daily. ??? eemfkykfxh-qftgdyswvkdag-eztsidvs 50-325-40 MG tablet Take 1 tablet by mouth every 4 (four) hours as needed. ??? docusate sodium (STOOL SOFTENER) 100 MG capsule Take 100 mg by mouth 2 (two) times daily. Take 2 capsules BID ??? FAMOTIDINE 20 MG tablet TAKE 1 TABLET BY MOUTH TWICE A DAY 60 tablet 1 ??? ipratropium 0.03 % nasal spray 2 sprays by Nasal route every 12 (twelve) hours. ??? LISINOPRIL 20 MG tablet TAKE 1 TABLET BY MOUTH EVERY DAY 90 tablet 0 ??? MONTELUKAST 10 MG tablet TAKE 1 TABLET BY MOUTH EVERY DAY 30 tablet 1 ??? omega-3 fatty acid 1000 MG capsule Take 1,000 mg by mouth 2 (two) times daily. ??? pravastatin 20 MG tablet Take 1 tablet (20 mg total) by mouth daily. 90 tablet 0 ??? probiotic capsule Take 1 capsule by mouth 3 (three) times daily with meals. ??? vitamin D3, cholecalciferol, 75 MCG (3000 UT) Tab tablet Take 1,000 Units by mouth daily. No current facility-administered medications for this visit. Allergies: No Known Allergies Review of Systems: An appropriate review of systems was conducted with the pertinent positives and negatives as noted above in the HPI also including: Review of Systems Constitutional: Negative for chills and fever. HENT: Negative for ear discharge and ear pain. Eyes: Negative for pain and discharge. Respiratory: Negative for cough. Cardiovascular: Negative for leg swelling. Gastrointestinal: Negative for abdominal pain, nausea and vomiting. Skin: Negative for itching and rash. Neurological: Negative for headaches. Objective / Physical Exam: Filed Vitals: 03/15/20 0801 BP: 128/70 Pulse: 68 Resp: 16 Temp: 98.4 ??F (36.9 ??C) TempSrc: Temporal Weight: 67.6 kg (149 lb) Body mass index is 29.1 kg/m??. Physical Exam Constitutional: She is oriented to person, place, and time. She appears well- developed and well-nourished. No distress. HENT: Head: Normocephalic and atraumatic. Eyes: Conjunctivae and EOM are normal. Right eye exhibits no discharge. Left eye exhibits no discharge. No pallor of the conjunctiva Neck: Normal range of motion. Neck supple. Cardiovascular: Normal rate, regular rhythm, normal heart sounds and intact distal pulses. Exam reveals no gallop and no friction rub. No murmur heard. Pulmonary/Chest: Effort normal and breath sounds normal. No respiratory distress. She has no wheezes. She has no rales. Abdominal: Soft. Bowel sounds are normal. She exhibits no distension. There is no tenderness. Thereis no guarding. Musculoskeletal: She exhibits no edema. Lymphadenopathy: She has no cervical adenopathy. Neurological: She is alert and oriented to person, place, and time. Skin: Skin is warm. She is not diaphoretic. Psychiatric: She has a normal mood and affect. Her behavior is normal. Vitals reviewed. Lab / In Office Testing / Radiograph review: No results found for this visit on 03/15/20. Assessment/Plan: 1. Benign essential hypertension 2. Encounter for screening mammogram for malignant neoplasm of breast MG SCREENING ANDREA DIGI - BP looks great on examination today; can continue lisinopril 20 mg PO daily - will check BMP and lipid panel in 3 months at her next visit - she is due for another mammogram; she usually has them done through her obgyn but states we can order it for her today because she is not sure when she will see her obgyn and her current order may be - advised that the scheduling center will call to have the mammogram scheduled Followup Plan: Return in about 3 months (around 06/15/2020) for HTN follow-up and labs. Instructions on the sign/symptoms of worsening problems were given and verbal acknowledgement of understanding was noted. Those present were instructed to call the office during business hours or go to convenient care when the office is closed. If it's an emergency then go to an ER if necessary to address these worsening conditions. The parent's permission and patient verbalized understanding andagreed to the plan. All questions answered to the patient's verbalized satisfaction. Patient Instructions Your blood pressure in the office looks good today. Continue lisinopril 20 mg one pill daily You don't need to take your iron pills anymore. We will check labs in 3 months at your next visit. Demetrio Shore MD Family Medicine [facility], [facility] documented in this encounter Plan of Treatment Upcoming Encounters Date Type Department Care Team (Late st Contact Info) Description 11/02/2024 8:00 AM HEART COORDINATOR Office Visit [address] [place] [address] Ella Hodge [address] [place] [address] 01/19/2025 11:00 AM CDT Office Visit [facility] Pul[facility] - [address] [place] [address] Stanley Jim MD [address] [place] [address] 06/23/2025 8:20 AM CDT Office Visit [address] [place] [address] Ella Hodge FNP [address] [place] [address] [place] [address] documented as of this encounter Visit Diagnoses Diagnosis Benign essential hypertension- Primary Essential hypertension, benign Encounter for screening mammogram for malignant neoplasm of breast Other screening mammogram documented in this encounter Care Teams Global Head Advertiser Solutions Relationship Specialty Start Date End Date Demetrio Shore MD PCP - General FAMILY PRACTICE 11/11/19 03/29/23 documented as of this encounter
--- OUTSIDE RECORDS SUMMARY | 2024-10-24 11:58 | XMS_ITS | Encounter Summary ---
Author Organization [facility] Address [address] [facility]. [place], [place] [address] [place] [id number] Care Team Providers Care Meat Manager Name Role Phone Demetrio Shore MD Primary Care Pr ovider Unavailable Reason for Visit * Reason Comments Physical pre op left foot Bun ion and Hammer Toe repair. Sched 03/14/2021 at [facility] with Dr Jony Pruitt. Pt does not have a form with her, unaware if she just needs a H/P or if she needs any further testing. Encounter Details Date Type Department Care Team (Late st Contact Info) Description 02/26/2021 8:40 AM CDT Office Visit [address] [place] [address] Demetrio Shore MD Physical (pre op left foot Bunion and Hammer Toe repair. Sched 03/14/2021 at [facility] with Dr Jony Pruitt. Pt does not have a form with her, unaware if she just needs a H/P or if she needs any further testing.) Social History Tobacco Use Types Packs/Day Years [...] have Coronavirus / COVID-19? No / Unsure 02/26/2021 8:32 AM CDT documented as of this encounter Last Filed Vital Signs Vital Sign Reading Time Taken Comments Blood Pressure 122/74 02/26/2021 8:56 AM CDT Pulse 67 02/26/2021 8:56 AM CDT Temperature 36.9 ??C (98.5 ??F) 02/26/2021 8:56 AM CD T Respiratory Rate 16 02/26/2021 8:56 AM CDT Oxygen Saturation 97% 02/26/2021 8:56 AM CDT Inhaled Oxygen Concentration - - Weight 67.2 kg (148 lb 3 oz) 02/26/2021 8:56 AM CDT Height 152.4 cm (5') 02/26/2021 8:56 AM CDT Body Mass Index 28.94 02/26/2021 8:56 AM CDT documented in this encounter Patient Instructions * Patient Instructions* Demetrio Shore MD - 02/26/2021 8:40 AM CDT Please have your EKG done at the hospital. I will fax our report to your clothing manager. documented in this encounter Progress Notes * Demetrio Shore MD - 02/26/2021 8:40 AM CDT Images from the original note were not included. Love Catherine is a 75-year-old female who presents today alone for evaluation of Chief Complaint Patient presents with ??? Physical pre op left foot Bunion and Hammer Toe repair. Sched 03/14/2021 at [facility] in [place] with Dr Jony Pruitt. Pt does not have a form with her, unaware if she just needs a H/P or if she needs any further testing. History of Present Illness: Patient is here today for preop clearance: - she is scheduled to have left bunion and 2nd hammertoe surgery with Dr. Jony Pruitt on 03/14/2021 - she has been having pain with walking in the left foot for awhile and is having a hard time wearing certain shoes - she had surgery in the past with no issues with intubation or anesthesia; she states that she hada right hip replacement last year October 2019 and was in the the hospital a bit longer due to nausea from the anesthesia but otherwise did well after surgery - she has HTN and is currently on lisinopril 20 mg po daily - she has HLD and is on pravastatin 40 mg po qhs - she takes montelukast 10 mg every evening for chronic rhinitis and famotidine for her acid reflux - she is also on vitamins and an NSAID - she states she has not had any heart issues in the past; she had an EKG done at [facility] year before her hip surgery - she has no stents - she has no chest pain, palpitations, SOB, N/V, abdominal pain - no lower leg swelling - she has JUAN and uses a CPAP machine at night Past Medical History: Diagnosis Date ??? Allergic [...] Frequency: Never ??? Drug use: No Health Madamaris due was reviewed. Medications: Current Outpatient Medications Medication Sig Dispense Refill ??? aooxcztdzb-kaknfcaneyjiu-pvpbrzgw 50-325-40 MG tablet Take 1 tablet by [...] mouth 2 (two) times daily. ??? pravastatin 40 MG tablet Take 1 [...] for chills and fever. Respiratory: Negative for cough. Genitourinary: Negative for dysuria and hematuria. Neurological: Negative for headaches. Objective / Physical Exam: Filed Vitals: 02/26/21 0856 BP: 122/74 Pulse: 67 Resp: 16 Temp: 98.5 ??F (36.9 ??C) TempSrc: Tympanic SpO2: 97% Weight: 67.2 kg (148 lb 3 oz) Height: 5' (1.524 m) Body mass index is 28.94 kg/m??. Physical Exam Vitals signs reviewed. Constitutional: General: She is not in acute distress. Appearance: Normal appearance. She is well-developed. She is not ill-appearing, toxic-appearing or diaphoretic. HENT: Head: Normocephalic and atraumatic. Mouth/Throat: Oropharynx is clear and moist and mucous membranes are normal. Mucous membranes are moist. No posterior oropharyngeal erythema. Eyes: General: Right eye: No discharge. Left eye: No discharge. Extraocular Movements: Extraocular movements intact. Conjunctiva/sclera: Conjunctivae normal. Neck: Musculoskeletal: Normal range of motion and neck supple. Vascular: No JVD. Cardiovascular: Rate and Rhythm: [...] abdominal tenderness. There is no guarding. Musculoskeletal: Normal range of motion. Right lower leg: No edema. Left lower leg: No edema. Comments: Strength 5/5 in the upper and lower extremities Feet: Skin: General: Skin is warm. Neurological: Mental Status: She is alert and oriented to person, place, and time. Mental status is at baseline. Cranial Nerves: No cranial nerve deficit. Motor: No weakness. Coordination: Coordination normal. Gait: Gait normal. Deep Tendon Reflexes: Reflex Scores: Patellar reflexes are 2+ on the right side and 2+ on the left side. Psychiatric: Mood and Affect: Mood normal. Behavior: Behavior normal. Lab / In Office Testing / Radiograph review: No results found for this visit on 02/26/21. Assessment/Plan: 1. Preop examination BASIC METABOLIC PANEL CBC W/DIFF AUTOMATED EKG INTERPRET & REPORT PREVE 2. Bunion of left foot 3. Hammer toe of left foot 4. Gastroesophageal reflux disease without esophagitis famotidine 20 MG tablet 5. Chronic rhinitis montelukast 10 MG tablet 6. Essential hypertension lisinopril 20 MG tablet BASIC METABOLIC PANEL CBC W/DIFF AUTOMATED 7. Mixed hyperlipidemia pravastatin 40 MG tablet - patient is here today for preop examination; she is having surgery on her left foot for her bunion and 2nd hammertoe repair - she has had surgery in the past and did well; states she did have nausea with anesthesia but otherwise did well - labs ordered today to review - ordered an EKG which she will have done today at the hospital; reviewed and shows sinus bradycardia with short LA interval - will obtain her previous EKG from October 2019 from [facility]; previous EKG showed sinus rhythm with atrial premature complex, low QRS voltage in preocridal leads and delayed precordial R/Stransition - her BP is well-controlled; she can take her lisinopril the night before surgery - she has HLD and can take her pravastatin the night before surgery - she can also take her montelukast the night before surgery - advised to hold all vitamins and supplements 2 weeks before surgery to prevent issues with bleeding - no NSAIDs 2 weeks before surgery either - she is of an acceptable risk for surgery and can proceed with the planned surgery for 03/14/2021 - will send this progress note, labs and EKG to her clothing manager Followup Plan: Return in about 3 months (around 05/29/2021) for hypertension follow-up. Instructions on the sign/symptoms [...] verbalized satisfaction. Patient Instructions Please have your EKG done at the hospital. I will fax our report to your clothing manager. Demetrio Shore MD Family Medicine [facility] * Edith Trinidad RN - 02/26/2021 8:40 AM CDT Pt notified of results and voiced understanding; ekg pulled from [facility] and faxed to dr horta documented in this encounter Plan of Treatment Upcoming Encounters Date Type Department Care Team (Late st Contact Info) Description 11/02/2024 8:00 AM OUTSIDE SALES ACCOUNT MANAGER Office Visit [address] [place], [place] [id number] Ella Hodge, SPEECH THERAPY ASSISTANT[address] [place] [id number] 01/19/2025 11:00 AM CDT Office Visit [facility] - [place] [address] [facility] [place] [address] Stanley Jim MD [address] [address] 06/23/2025 8:20 AM CDT Office Visit Critical access hospital [address] [place] [address] Ella Hodge FNP [address] [place] [address] Scheduled Orders Name Type Priority Associated Diagnoses Orde r Schedule EKG INTERPRET & REPORT PREVE EKG-NonRad Routine Preop examination Ordered: 02/26/2021 documented as of this encounter Procedures Procedure Name Priority Date/Time Associated Diagnosis Comments BASIC METABOLIC PANEL Routine 02/26/2021 10:00 AM CDT Essential hypertension Preop examination CBC W/DIFF AUTOMATED Routine 02/26/2021 10:00 AM CDT Essential hypertension Preop examination documented in this encounter Results * (ABNORMAL) CBC W/DIFF AUTOMATED (02/26/2021 10:00 AM CDT) WBC 5.1 4.5 - 11.0 cmm [facility] RBC 3.8(L) 4.0 - 5.2 M/cumm [facility] HGB 11.7(L) 12.0 - 16.0 g/dL [facility] HCT 36.7 36.0 - 46.0 % [facility] MCV 95.6 80.0 - 100 fL [facility] MCH 30.5 26.0 - 34.0 pg [facility] MCHC 31.9 31.0 - 37.0 g/dL [facility] RDW 13.2 11.6 - 14.8 % [facility] PLT 257 140 - 415 cmm [facility] MPV 9 7 - 12 fl [facility] ABS. NEUTROPHILS 2.31 1.50 - 8.00 x10^3 [facility] ABS. LYMPHOCYTES 1.97 0.21 - 5.42 x10^3 [facility] ABS. MONOCYTES 0.62 0.04 - 1.37 x10^3 [facility] ABS. EOSINOPHILS 0.11 0.00 - 0.68 x10^3 [facility] ABS. BASOPHILS 0.04 0.00 - 0.08 x10^3 [facility] ABS. IMMATURE GRANULOCYTES 0.00 0.00 - 0.06 x10^3 [facility] NEUTROPHILS % 45.7 40.0 - 74.0 % [facility] LYMPHOCYTES % 39.0 14.0 - 46.0 % [facility] MONOCYTES % 12.3 4.0 - 13.0 % [facility] EOSINOPHILS % 2.2 0.0 - 7.0 % [facility] BASOPHILS % 0.8 0.0 - 3.0 % [facility] IMMATURE GRANS % 0.00 0.00 - 0.43 % [facility] MANUAL DIFFERENTIAL NOT INDICATED [facility] WBC MORPHOLOGY NOT INDICATED [facility] RBC MORPHOLOGY NOT INDICATED [facility] PLT MORPH. NOT INDICATED [facility] 02/26/2021 10:0 0 AM CDT 02/26/2021 10:00 AM CDT Demetrio Shore MD LABORATORY Final Result [facility] [address] [place] [address] * BASIC METABOLIC PANEL (02/26/2021 10:00 AM CDT) Pathologist [facility] GLUCOSE 95 70 - 99 mg/dL [facility] SODIUM S/P/B 143 136 - 145 mmol/L [facility] POTASSIUM S/P/B 4.4 3.5 - 5.1 mmol/L [facility] CHLORIDE S/P/B 107 100 - 108 mmol/L [facility] CO2 26 21 - 32 mmol/L [facility] BUN 17 7 - 18 mg/dL [facility] CREATININE S/P/B 0.9 0.5 - 1.2 mg/dL [facility] CALCIUM S/P/B 9.2 8.5 - 10.1 mg/dL [facility] PATIENT'S AGE 75 YEARS [facility] EGFR NON-AFR. AMER. 65 ml/min [facility] EGFR AFR. AMER. 78 ml/min [facility] ANION GAP 14 8 - 20 [facility] Comment: ? GFR INTERPRETATION According to the National Kidney Foundation, normal results range from 90 to 120 mL/min/1.73 m2. Older people will have lower than normal GFR levels, because GFR decreases with age. Normal value ranges may vary slightly among different laboratories 02/26/2021 10:0 0 AM CDT 02/26/2021 10:00 AM CDT us Demetrio Shore MD LABORATORY Final Result [facility] [address] [place] [address] documented in this encounter Visit Diagnoses Diagnosis Preop examination- Primary Preoperative examination, unspecified Bunion of left foot Bunion Hammer toe of left foot Gastroesophageal reflux disease without esophagitis Esophageal reflux Chronic rhinitis Essential hypertension Unspecified essential hypertension Mixed hyperlipidemia documented in this encounter Care Teams Meat Manager Relationship Specialty Start Date End Date Demetrio Shore MD PCP - General FAMILY PRACTICE 11/11/19 03/29/23 documented as of this encounter
--- OUTSIDE RECORDS SUMMARY | 2024-10-24 11:58 | XMS_ITS | Encounter Summary ---
Author Organization [facility] Address [address] [place] [address]. [place], [place] [id number] [place] [address] Care Team Providers Care Drilling Machine Runner Name Role Phone Demetrio Shore MD Primary Care Pr ovider Unavailable Encounter Details Date Type Department Care Team (Latest Contact Info) Description 03/15/2020 Travel Social History Tobacco Use Types Packs/Day [...] st Contact Info) Description 11/02/2024 8:[address] CREW MEMBER Office Visit [facility] [address] [place] [address] Ella Hodge, [facility] [address] [place] [address] 01/19/2025 11:00 AM CDT Office Visit [facility] Pul[facility]ology [facility]ty [facility] - [address] [place] [address] Stanley Jim MD [address] [place] [address] 06/23/2025 8:20 AM CDT Office Visit [facility] [address] [facility] [place] [address] Ella Hodge [facility] [address] [facility] [place] [facility] [place] [address] documented as of this encounter Visit Diagnoses Not on filedocumented in this encounter Care Teams Drilling Machine Runner Relationship Specialty Start Date End Date Demetrio Shore MD PCP - General FAMILY PRACTICE 11/11/19 03/29/23 documented as of this encounter
--- OUTSIDE RECORDS SUMMARY | 2024-10-24 11:58 | XMS_ITS | Encounter Summary ---
Author Organization [facility] Address [address] [place], [place] [id number] [place] [address] Care Team Providers Care Ropewalk Rope Maker Name Role Phone Demetrio Shore MD Primary Care Pr ovider Unavailable Reason for Visit * Reason Comments Rash 2 weeks ago started breaking out. She was out of [facility] visiting daughter. red rash, only itches when she touches it, not tender.. daughter that is practicing nurse practitioner, gave her 7-10 days ago a Dexamethesone /solu medrol injection 4mg/40 Encounter Details Date Type Department Care Team (Late st Contact Info) Description 08/28/2020 3:20 PM CEMENT FINISHER HELPER Office Visit [address] [place] [address] Demetrio Shore MD Rash (2 weeks ago started breaking out. She was out of [facility] visiting daughter. red rash, only itches when she touches it, not tender.. daughter that is practicing nurse practitioner, gave her 7-10 days ago a Dexamethesone /solu medrol injection 4mg/40) Social History Tobacco Use Types Packs/Day Years [...] COVID-19? No / Unsure 08/28/2020 3:35 PM CEMENT FINISHER HELPER documented as of this encounter Last Filed Vital Signs Vital Sign Reading Time Taken Comments Blood Pressure 122/76 08/28/2020 3:52 PM CEMENT FINISHER HELPER Pulse 73 08/28/2020 3:52 PM CEMENT FINISHER HELPER Temperature 37 ??C (98.6 ??F) 08/28/2020 3:52 PM CEMENT FINISHER HELPER Respiratory Rate 18 08/28/2020 3:52 PM CEMENT FINISHER HELPER Oxygen Saturation 97% 08/28/2020 3:52 PM CEMENT FINISHER HELPER Inhaled Oxygen Concentration - - Weight 66.2 kg (146 lb) 08/28/2020 3:52 PM CEMENT FINISHER HELPER Height 152.4 cm (5') 08/28/2020 3:52 PM CEMENT FINISHER HELPER Body Mass Index 28.51 08/28/2020 3:52 PM CEMENT FINISHER HELPER documented in this encounter Patient Instructions * Patient Instructions* Demetrio Shore MD - 08/28/2020 3:20 PM CEMENT FINISHER HELPER Benadryl 25 mg every night at bedtime x 1-2 weeks. Claritin 10 mg 1 tablet every morning x 1-2 weeks. NT FINISHER HELPER documented in this encounter Progress Notes * Demetrio Shore MD - 08/28/2020 3:20 PM CST Love Catherine is a 74-year-old female who presents today alone for evaluation of Chief Complaint Patient presents with ??? Rash 2 weeks ago started breaking out. She was out of [facility] visiting daughter. red rash, only itches when she touches it, not tender.. daughter that is practicing nurse practitioner, gave her 7-10days ago a Dexamethesone /solu medrol injection 4mg/40 History of Present Illness: Here today due to a rash - states that she broke out in a rash 2 weeks ago - she was at her daughter's house when the rash started - she has not changed her detergent or soap recently - her daughter gave her a Dexamethasone injection to help; which helped a bit - still a bit itchy - no difficulty swallowing - no difficulty with breathing - no lip swelling - still has a bit of a rash on her upper arms Past Medical History: Diagnosis Date ??? Allergic [...] Outpatient Medications Medication Sig Dispense Refill ??? lgapdltlbs-fwgedxgmgzfbe-qvzptjmp 50-325-40 MG tablet Take 1 tablet by mouth every 4 (four) hours as needed. ??? cetirizine 10 MG tablet Take 10 mg by mouth daily. ??? docusate sodium (STOOL SOFTENER) 100 MG capsule Take 100 mg by mouth daily. Take 2 capsules BID ??? famotidine 40 MG tablet Take 1 tablet (40 mg total) by mouth daily. 90 tablet 0 ??? hydrocortisone 2.5 % cream Apply topically 2 (two) times daily. 28 g 1 ??? ipratropium 0.03 % nasal spray 2 sprays by Nasal route every 12 (twelve) hours. ??? lisinopril 20 MG tablet Take 20 mg by mouth daily. ??? montelukast 10 MG tablet Take 1 tablet (10 mg total) by mouth daily. 90 tablet 0 ??? Naproxen Sodium (ALEVE) 220 MG Cap [...] Take 1,000 Units by mouth daily. ??? Calcium Carbonate-Vitamin D (CALCIUM 500 + D OR) Organic Plant Calcium with vitamin D3 and magnesium ??? famotidine 20 MG tablet Take 40 mg by mouth daily. ??? hypromellose 0.3 % ophthalmic gel Place into both eyes 2 (two) times daily. ??? lisinopril 10 MG tablet Take 2 tablets (20 mg total) by mouth daily. 180 tablet 0 No current facility-administered medications for this visit. Allergies: No Known Allergies Review of Systems: An appropriate review of systems was conducted with the pertinent positives and negatives as noted above in the HPI also including: Review of Systems Constitutional: Negative for chills and fever. HENT: Negative for ear discharge and ear pain. Eyes: Negative for pain, discharge and redness. Respiratory: Negative for cough. Cardiovascular: Negative for chest pain, palpitations and leg swelling. Gastrointestinal: Negative for abdominal pain, nausea and vomiting. Genitourinary: Negative for dysuria and hematuria. Objective / Physical Exam: Filed Vitals: 08/28/20 1552 BP: 122/76 Pulse: 73 Resp: 18 Temp: 98.6 ??F (37 ??C) TempSrc: Tympanic SpO2: 97% Weight: 66.2 kg (146 lb) Height: 5' (1.524 m) Body mass index is 28.51 kg/m??. Physical Exam Vitals signs reviewed. Constitutional: [...] Vascular: No JVD. Cardiovascular: Rate and Rhythm: Regular rhythm. Pulses: Normal pulses. Heart sounds: Normal [...] no guarding. Musculoskeletal: Normal range of motion. Lymphadenopathy: Cervical: No cervical adenopathy. Skin: General: Skin is warm. Comments: Slightly erythematous rash on her upper chest and arms Neurological: Mental Status: She is alert and oriented to person, place, and time. Psychiatric: Mood and Affect: Mood normal. Behavior: Behavior normal. Lab / In Office Testing / Radiograph review: No results found for this visit on 08/28/20. Assessment/Plan: 1. Pruritus hydrocortisone 2.5 % cream 2. Allergic reaction, initial encounter hydrocortisone 2.5 % cream - prescribed hydrocortisone cream to apply BID for her rash x 1-2 weeks; likely an allergic reaction, trigger unknown - advised to take Claritin 10 mg Po daily for the next 1-2 weeks - if symptoms do not improve she will return to the clinic; if any worsening symptoms of SOB she will go to the ER for further management Followup Plan: Return in about 6 months (around 02/25/2021) for HTN follow-up. Instructions on the sign/symptoms of worsening [...] to the patient's verbalized satisfaction. Patient Instructions Benadryl 25 mg every night at bedtime x 1-2 weeks. Claritin 10 mg 1 tablet every morning x 1-2 weeks. Demetrio Shore MD Family Medicine [facility], [facility] NT FINISHER HELPER documented in this encounter Plan of Treatment Upcoming Encounters Date Type Department Care Team (Late st Contact Info) Description 11/02/2024 8:00 AM CEMENT FINISHER HELPER Office Visit [address] [place] [address] Ella Hodge, [address] [place] [address] [place] [address] 01/19/2025 11:00 AM CDT Office Visit [facility] Pulmonology Specialty Clinic - [address] [place] [address] Stanley Jim MD [address] [place] [address] 06/23/2025 8:20 AM CDT Office Visit [facility] [address] [facility] [place] [address] Ella Hodge [facility] [address] [facility] [address] documented as of this encounter Visit Diagnoses Diagnosis Pruritus- Primary Unspecified pruritic disorder Allergic reaction, initial encounter documented in this encounter Care Teams Ropewalk Rope Maker Relationship Specialty Start Date End Date Demetrio Shore MD PCP - General FAMILY PRACTICE 11/11/19 03/29/23 documented as of this encounter
--- OUTSIDE RECORDS SUMMARY | 2024-10-24 11:58 | XMS_ITS | Encounter Summary ---
Author Organization [facility] Address [facility]6 [facility]. [place], [place] [address] [place] [address] Care Team Providers Care Chief Communications Officer Name Role Phone Demetrio Shore MD Primary Care Pr ovider Unavailable Encounter Details Date Type Department Care Team (Late st Contact Info) Description 03/30/2020 Orders Only [facility] [address] [place] [address] Demetrio Shore MD Social History Tobacco Use [...] Progress Notes * Renetta Gimenez LPN - 04/06/2020 11:24 AM CDT Pt. Notified. Verbalized understanding. documented in this encounter Plan of Treatment Upcoming Encounters Date Type Department Care Team (Late st Contact Info) Description 11/02/2024 8:00 AM RAILROAD BRAKE OPERATOR Office Visit [address] [place] [address] Ella Hodge [facility] 201 [facility] [place], [place] [id number] 01/19/2025 11:00 AM CDT Office Visit [facility] [address] [place], [place] [address] Stanley Jim MD [address] [place] [address] 06/23/2025 8:20 AM CDT Office Visit [address] [place] [address] Ella Hodge [address] [place], [place] [id number] documented as of this encounter Procedures Procedure Name Priority Date/Time Associated Diagnosis Comments MG SCREENING ANDREA DIGI 03/30/2020 2:50 PM CDT documented in this encounter Results * MG SCREENING ANDREA DIGI (03/30/2020 2:50 PM CDT) Anatomical Region Laterality Modality Breast Bilateral Mammography 03/30/2020 2:50 PM CDT Narrative 03/30/2020 2:50 PM CDT ? [facility] ??---------NAME--------- NUMBER ??SEX AGE ?? ADMIT ?DISC. ??XRAY# ??F/C ??TYPE ??[facility] E ?[id number] ??F ?? 74 ??03/30/20 ??03/30/20 [id number] MB ?O/P ? DATE OF : 1945 ?? M/R# [id number] ?PH#: [phone] ??RM ? MAMMOGRAM SCREENING WITH NEVA [id number] ?COMPLETED:03/30/20 14:50 [id number] ? {MAMMO DX: ??SCREENING ? PHYSICIAN: TAVARES ? R ??A ??D ??I ??O ??L ??O ??G ??Y ? R ??E ??P ??O ??R ??T EXAMINATION: MAMMOGRAM SCREENING WITH NEVA AND I/CAD WITH TOMOSYNTHESIS AND COMPUTER-AIDED DETECTION (CAD) DATE: 03/30/2020 1:47 PM COMPARISON STUDIES: ??11/14/2018, 06/13/2017, 06/13/2016, 05/24/2015. CLINICAL HISTORY: ??Benign biopsy left breast 2005. MAMMO DX: ??SCREENING FINDINGS: Bilateral CC, MLO, 2-D and 3-D acquisitions. Heterogeneously dense residual fibroglandular parenchyma unfortunately could obscure underlying lesions. Similar in appearance and distribution to the previous exams. No evidence of dominant mass, architectural distortion, skin thickening, nipple retraction or suspicious clusters of microcalcifications. ??Benign calcifications redemonstrated. CONCLUSION: 1. ??BI-RADS Category 2 - benign findings. Annual screening mammography recommended 2. ??TISSUE TYPE: Category C: The breasts are heterogeneously dense, which may obscure small masses. MQSA BI-RADS Categories: Category 0 - needs additional imaging evaluation. Category 1 - negative. Category 2 - benign findings. Category 3 - probably benign findings, but short interval follow-up ?is recommended. Category 4 - suspicious abnormality and biopsy should be considered ?though the lesion may well be benign. Category 5 - highly suggestive of malignancy and appropriate action ?should be taken. A) ??A negative report should not delay a biopsy if a dominant or ?clinically suspicious mass is present. B) ??Adenosis and dense breasts may obscure an underlying neoplasm. C) ??Study interpreted with computer aided detection. Voice recognition software utilized. Interpreted By: Dustin Mead, 04/04/2020 10:54 AM Electronically Signed By: DUSTIN Bruno ? , BOARD CERTIFIED Date/Time: 04/04/20 10:54 Procedure Note Karissa Duckworth MD - 04/04/2020 [facility] ---------NAME--------- NUMBER SEX AGE ADMIT DISC. XRAY# F/CTYPE ELIOT Diaz [id number] F 74 03/30/20 03/30/20 [id number] MBO/P DATE OF : 1945 M/R# [id number] #: [id number] MAMMOGRAM SCREENING WITH NEVA [id number] COMPLETED:03/30/20 14:50 [id number] {MAMMO DX: SCREENING PHYSICIAN: TAVARES R A D I O L O G Y R E P O R T EXAMINATION: MAMMOGRAM SCREENING WITH NEVA AND I/CAD WITH TOMOSYNTHESISAND COMPUTER-AIDED DETECTION (CAD) DATE: 03/30/2020 1:47 PM COMPARISON STUDIES: 11/14/2018, 06/13/2017, 06/13/2016, 05/24/2015. CLINICAL HISTORY: Benign biopsy left breast 2005. MAMMO DX: SCREENING FINDINGS: Bilateral CC, MLO, 2-D and 3-D acquisitions. Heterogeneously denseresidual fibroglandular parenchyma unfortunately could obscure underlyinglesions. Similar in appearance and distribution to the previous exams. No evidenceof dominant mass, architectural distortion, skin thickening, nippleretraction or suspicious clusters of microcalcifications. Benign calcifications redemonstrated. CONCLUSION: 1. BI-RADS Category 2 - benign findings. Annual screening mammography recommended 2. TISSUE TYPE: Category C: The breasts are heterogeneously dense, whichmay obscure small masses. MQSA BI-RADS Categories: Category 0 - needs additional imaging evaluation. Category 1 - negative. Category 2 - benign findings. Category 3 - probably benign findings, but short interval follow-up is recommended. Category 4 - suspicious abnormality and biopsy should be considered though the lesion may well be benign. Category 5 - highly suggestive of malignancy and appropriate action should be taken. A) A negative report should not delay a biopsy if a dominant or clinically suspicious mass is present. B) Adenosis and dense breasts may obscure an underlying neoplasm. C) Study interpreted with computer aided detection. Voice recognition software utilized. Interpreted By: Dustin Mead, 04/04/2020 10:54 AM Electronically Signed By: DUSTIN Bruno , BOARD CERTIFIED Date/Time: 04/04/20 10:54 Demetrio Shore MD MAMMO Final Result documented in this encounter Visit Diagnoses Not on filedocumented in this encounter Care Teams Chief Communications Officer Relationship Specialty Start Date End Date Demetrio Shore MD PCP - General FAMILY PRACTICE 11/11/19 03/29/23 documented as of this encounter
--- OUTSIDE RECORDS SUMMARY | 2024-10-24 11:58 | XMS_ITS | Encounter Summary ---
Author Organization [facility] Address [address] [place] [address]. [place], [place] [address] [place] [address] Care Team Providers Care Income Tax Investigator Name Role Phone Demetrio Shore MD Primary Care Pr ovider Unavailable Reason for Visit * Reason Onset Date Comments Pre-op Question(s) 02/23/2021 Encounter Details Date Type Department Care Team (Late st Contact Info) Description 02/23/[address] [place] [address] Demetrio Shore MD Pre-op Question(s) Social History Tobacco Use Types Packs/Day Years [...] Progress Notes * Julia العراقي LPN - 02/27/2021 1:08 PM CDT t hwere for appt already and call made to surgeons office re; same. See OV notes. * Renetta Gimenez LPN - 02/23/2021 4:01 PM CDT Phone call made to pt. Re: Upcoming surgery. Pt. States that she is having LEFT foot bunion/hammer toe repair done on 03/14/2021 at [facility] with Dr. Jony Pruitt DPM. Pt. States that no form was given to her to complete. Dr. Mcbride to send H&P progress note to specialist office. Dr. Pruitt's office. Phone call made to specialist office to obtain fax # for next week OV. Office closed. documented in this encounter Plan of Treatment Upcoming Encounters Date Type Department Care Team (Late st Contact Info) Description 11/02/2024 8:00 AM CABBAGE SALTER Office Visit [address] [place] [address] Ella Hodge FNP 201 [facility] [place] [address] 01/19/2025 11:00 AM CDT Office Visit [facility] [place] 200 [facility] [place] [address] Stanley Jim MD [address] [place] [address] 06/23/2025 8:20 AM CDT Office Visit [address] [place] [address] Ella Hodge [address] [place] [address] documented as of this encounter Visit Diagnoses Not on filedocumented in this encounter Care Teams Income Tax Investigator Relationship Specialty Start Date End Date Demetrio Shore MD PCP - General FAMILY PRACTICE 11/11/19 03/29/23 documented as of this encounter
--- OUTSIDE RECORDS SUMMARY | 2024-10-24 11:58 | XMS_ITS | Encounter Summary ---
Author Organization [facility] Address [facility]6 [facility]. [place], [place] [address] [place] [address] Care Team Providers Care Face Hardener Name Role Phone Demetrio Shore MD Primary Care Pr ovider Unavailable Joon Lewis Unavailable [phone] Callie Guerrero DO Unavailable [phone] George Osorio MD Unavailable Sergey Ramey Unavailable Jony Pruitt DPM Unavailable Gama Graves MD Unavailable [phone] Encounter Details Date Type Department Care Team (Late st Contact Info) Description 03/30/2020 Abstract [facility] [address] [place] [address] Demetrio Shore MD Social History Tobacco Use [...] st Contact Info) Description 11/02/2024 8:00 AM EYELET RIVETER Office Visit [address] [place] [address] Ella Hodge [address] [place] [address] 01/19/2025 11:00 AM CDT Office Visit [facility] [address] [place] [address] Stanley Jim MD [address] [place] [address] 06/23/2025 8:20 AM CDT Office Visit [facility] 201 [facility] [place] [address] Ella Hodge [address] [place] [address] documented as of this encounter Visit Diagnoses Not on filedocumented in this encounter Care Teams Face Hardener Relationship Specialty Start Date End Date Demetrio Shore MD PCP - General FAMILY PRACTICE 11/11/19 03/29/23 Joon Lewis PA PHYSICIAN CRYPTOLOGIC TECHNICIAN OPERATOR/ANALYST 05/09/21 Callie Guerrero DO Speed Belt Sander Tender OBGYN 06/14/21 [place] [address] [phone] GASTROENTEROLOGY 06/14/21 Sergey Ramey PA [address] [place] [address] PHYSICIAN CRYPTOLOGIC TECHNICIAN OPERATOR/ANALYST 06/14/21 Jony Pruitt DPM [facility]0 [facility], [address] [place] [address] Referring Physician PODIATRY/SURGERY 06/14/21 [place] [address] [place] [address] ORTHOPAEDIC SURGERY 06/14/21 documented as of this encounter
--- OUTSIDE RECORDS SUMMARY | 2024-10-24 11:58 | XMS_ITS | Encounter Summary ---
Author Organization [facility] Address [address] [place] [address]. [place], [place] [address] [place] [address] Care Team Providers Care Instructional Technology Coordinator Name Role Phone Demetrio Shore MD Primary Care Pr ovider Unavailable Encounter Details Date Type Department Care Team (Latest Contact Info) Description 06/14/2020 Travel Social History Tobacco Use Types Packs/Day [...] have Coronavirus / COVID-19? No / Unsure 06/14/2020 8:27 AM CDT documented as of this encounter Plan of Treatment Upcoming Encounters Date Type Department Care Team (Late st Contact Info) Description 11/02/2024 8:00 AM SHUTTLE VAN DRIVER Office Visit [facility] [address] [place] [address] Ella Hodge, [facility] [address] [place] [address] 01/19/2025 11:00 AM CDT Office Visit [facility] Medical [facility] - [address] [place] [address] Stanley Jim MD [address] [place] [address] 06/23/2025 8:20 AM CDT Office Visit [facility] 201 [facility] [place] [address] Ella Hodge [facility] 201 [facility] [place] [address] documented as of this encounter Visit Diagnoses Not on filedocumented in this encounter Care Teams Instructional Technology Coordinator Relationship Specialty Start Date End Date Demetrio Shore MD PCP - General FAMILY PRACTICE 11/11/19 03/29/23 documented as of this encounter
--- OUTSIDE RECORDS SUMMARY | 2024-10-24 11:58 | XMS_ITS | Encounter Summary ---
Author Organization [facility] Address [address] [place] [address]. [place], [place] [address] [place] [address] Care Team Providers Care Log Peeler Name Role Phone Demetrio Shore MD Primary Care Pr ovider Unavailable Reason for Visit * Reason Onset Date Comments Medication Request 12/30/2019 Encounter Details Date Type Department Care Team (Late st Contact Info) Description 12/30/[address] [place] [address] Demetrio Shore MD Medication Request Social History [...] Progress Notes * Demetrio Shore MD - 12/31/2019 1:55 PM CST Thanks Chiqui. Demetrio Shore MD Family Medicine [facility], [place] ERENCE DIRECTOR * Chiqui Michel RN - 12/31/2019 1:25 PM CST No she is not taking this medication. She was under the impression that it was short term. She is fine with taking Ibuprofen or tylenol as needed. Will take off medication and inform [facility] in [place] to cancel refill. ERENCE DIRECTOR * Demetrio Shore MD - 12/31/2019 10:38 AM CST She doesn't have to take this. It's as needed for pain. I would recommend Ibuprofen over this medication if she needs something for arthritic pain. I wasn't sure if she was taking this often, if not she doesn't need to pick it up. Please advise and I can take it off of her medication list. Demetrio Shore MD Family Medicine [facility], [facility] A ERENCE DIRECTOR * Chiqui Michel RN - 12/31/2019 10:34 AM CST Yes, looks like she is to be taking correct? Please advise. ERENCE DIRECTOR * Awilda Wooten - 12/31/2019 10:27 AM CST Patient left voicemail. Said pharmacy has Celecoxib for her. Patient wondering is she's supposed totake this medication or not. [phone] ARITA * Chiqui Michel RN - 12/30/2019 1:37 PM CST Last office visit was on 12/22/19. Please advise. ERENCE DIRECTOR * Jo Jordan - 12/30/2019 11:22 AM CST MARTIN Mueller requesting refill of Celecoxib 100 mg. ERENCE DIRECTOR documented in this encounter Plan of Treatment Upcoming Encounters Date Type Department Care Team (Late st Contact Info) Description 11/02/2024 8:00 AM CONFERENCE DIRECTOR Office Visit [address] [place] [address] Ella Hodge [address] [place] [address] 01/19/2025 11:00 AM CDT Office Visit [facility] Medical [facility] [address] [place] [address] Stanley Jim MD [address] [place] [address] 06/23/2025 8:20 AM CDT Office Visit [address] [place] [address] Ella Hodge [address] [place] [address] documented as of this encounter Visit Diagnoses Not on filedocumented in this encounter Care Teams Log Peeler Relationship Specialty Start Date End Date Demetrio Shore MD PCP - General FAMILY PRACTICE 11/11/19 03/29/23 documented as of this encounter
--- OUTSIDE RECORDS SUMMARY | 2024-10-24 11:58 | XMS_ITS | Encounter Summary ---
Author Organization [facility] Address [address] [place] [address]. [place], [place] [address] [place] [address] Care Team Providers Care Media Account Executive Name Role Phone Demetrio Shore MD Primary Care Pr ovider Unavailable Reason for Visit * Reason Onset Date Comments Medication 04/13/2020 Encounter Details Date Type Department Care Team (Late st Contact Info) Description 04/13/2020 Telephone [facility] [address] [place] [address] Demetrio Shore MD Medication Social History Tobacco [...] Progress Notes * Renetta Gimenez LPN - 04/13/2020 2:08 PM CDT Pt. States that pharm. Could not get Famotidine 20mg tabs on last refill. Pharm. Gave pt. 40mg tabs and told pt. To cut tab in half. Pt. States that cutting them is not working. 1/2 the pill is powder and pt. Not getting full dose. Pt. Questioned if she could just take the full 40mg tab once daily so med is taken properly and no med is wasted. Advised pt. That would be ok as long as she was taking 40mg total daily. Pt. Told to call office and report back if any changes or problems. Pt. Verbalized understanding. * Cora Aguila - 04/13/2020 9:25 AM CDT PATIENT WOULD LIKE NURSE TO RETURN HER CALL REGARDING A MEDICATION SHES ON [phone] documented in this encounter Plan of Treatment Upcoming Encounters Date Type Department Care Team (Late st Contact Info) Description 11/02/2024 8:00 AM ITEM REPAIR MANAGER Office Visit [address] [place] [address] Ella Hodge FNP 201 [facility] [place] [address] 01/19/2025 11:00 AM CDT Office Visit [facility] - [address] [place] [address] Stanley Jim MD [address] [place] [address] 06/23/2025 8:20 AM CDT Office Visit [address] [place] [address] Ella Hodge FNP [address] [facility] [place] [address] documented as of this encounter Visit Diagnoses Not on filedocumented in this encounter Care Teams Media Account Executive Relationship Specialty Start Date End Date Demetrio Shore MD PCP - General FAMILY PRACTICE 11/11/19 03/29/23 documented as of this encounter
--- OUTSIDE RECORDS SUMMARY | 2024-10-24 11:58 | XMS_ITS | Encounter Summary ---
Author Organization [facility] Address [address] [place] [address]. [place], [place] [address] [place] [address] Care Team Providers Care Online Journalist Name Role Phone Demetrio Shore MD Primary Care Pr ovider Unavailable Reason for Visit * Reason Onset Date Comments Information 02/28/2021 Encounter Details Date Type Department Care Team (Late st Contact Info) Description 02/28/2021 Telephone [facility] [address] [place] [facility] Demetrio Shore MD Information Social History Tobacco Use Types Packs/Day Years [...] Progress Notes * Julia العراقي LPN - 03/01/2021 10:14 AM CDT I called and [place] schredded papers. Correct fax number rec'd and faxed to Dr Jony Pruitt office. * Cora Aguila - 02/28/2021 8:38 AM CDT Cholo From [facility] called said they received a fax for the patient Attn: Dr. Jony Pruitt they have no Dr. By that name there it was for a surgical clearance for patient please return her [phone] documented in this encounter Plan of Treatment Upcoming Encounters Date Type Department Care Team (Late st Contact Info) Description 11/02/2024 8:00 AM READINESS PARAPROFESSIONAL Office Visit [address] [place] [address] Ella Hodge [facility] [address] [facility] [place] [address] 01/19/2025 11:00 AM CDT Office Visit [facility] Medical [facility] - [address] [place] [address] Stanley Jim MD [address] [place] [address] 06/23/2025 8:20 AM CDT Office Visit [address] [place] [address] Ella Hodge FNP [address] [facility] [place] [address] documented as of this encounter Visit Diagnoses Not on filedocumented in this encounter Care Teams Online Journalist Relationship Specialty Start Date End Date Demetrio Shore MD PCP - General FAMILY PRACTICE 11/11/19 03/29/23 documented as of this encounter
--- OUTSIDE RECORDS SUMMARY | 2024-10-24 11:58 | XMS_ITS | Encounter Summary ---
Author Organization [facility] Address [address] [place] [address]. [place], [place] [address] [place] [address] Care Team Providers Care Steam Bone Press Tender Name Role Phone Demetrio Shore MD Primary Care Pr ovider Unavailable Encounter Details Date Type Department Care Team (Late st Contact Info) Description 12/31/2019 Orders Only [facility] [address] [place] [address] Chiqui Michel, RN Social History Tobacco Use Types Packs/Day [...] st Contact Info) Description 11/02/2024 8:00 AM TECHNOLOGY ADVISOR Office Visit [facility] [address] [place] [address] Ella Hodge FNP [address] [place] [address] 01/19/2025 11:00 AM CDT Office Visit [facility] Medical [facility] - [address] [place] [address] Stanley Jim MD [address] [place] [address] 06/23/2025 8:20 AM CDT Office Visit [facility] [address] [place] [address] Ella Hodge [facility] [address] [place] [address] documented as of this encounter Visit Diagnoses Not on filedocumented in this encounter Care Teams Steam Bone Press Tender Relationship Specialty Start Date End Date Demetrio Shore MD PCP - General FAMILY PRACTICE 11/11/19 03/29/23 documented as of this encounter
--- OUTSIDE RECORDS SUMMARY | 2024-10-24 11:58 | XMS_ITS | Encounter Summary ---
Author Organization [facility] Address [address] [place] [address]. [place], [place] [address] [place] [address] Care Team Providers Care Ground Operations Superintendent Name Role Phone Demetrio Shore MD Primary Care Pr ovider Unavailable Reason for Visit * Reason Onset Date Comments Refill Request 01/24/2020 Encounter Details Date Type Department Care Team (Late st Contact Info) Description 01/24/2020 Telephone [facility] 101 [facility] [place] [address] Demetrio Shore MD Refill Request Social History [...] Progress Notes * Demetrio Shore MD - 01/24/2020 4:33 PM CDT Received a refill request via paper form. Refilled Famotidine. Demetrio Shore MD Family Medicine [facility], MOB A documented in this encounter Plan of Treatment Upcoming Encounters Date Type Department Care Team (Late st Contact Info) Description 11/02/2024 8:00 AM MD PSYCHIATRY Office Visit [address] [address] Ella Hodge [facility] 201 [facility] [place] [address] 01/19/2025 11:00 AM CDT Office Visit [facility] [address] [place] [address] Stanley Jim MD [address] [place] [address] 06/23/2025 8:20 AM CDT Office Visit [address] [place] [address] Ella Hodge [address] [place] [address] documented as of this encounter Visit Diagnoses Diagnosis Dyspepsia Dyspepsia and other specified disorders of function of stomach documented in this encounter Care Teams Ground Operations Superintendent Relationship Specialty Start Date End Date Demetrio Shore MD PCP - General FAMILY PRACTICE 11/11/19 03/29/23 documented as of this encounter
--- OUTSIDE RECORDS SUMMARY | 2024-10-24 11:58 | XMS_ITS | Encounter Summary ---
Author Organization [facility] Address [address] [place] [address]. [place], [place] [address] [place] [address] Care Team Providers Care Charge Account Authorizer Name Role Phone Demetrio Shore MD Primary Care Pr ovider Unavailable Joon Lewis Unavailable [phone] Encounter Details Date Type Department Care Team (Latest Contact Info) Description 05/09/2021 Scan HEALTH INFO SRVCS Scanned, Documents Social [...] st Contact Info) Description 11/02/2024 8:00 AM SHEET HEATER Office Visit [facility] [address] [facility] [place] [address] Ella Hodge [facility] [address] [facility] [place] [address] 01/19/2025 11:00 AM CDT Office Visit [facility] - [address] [place] [address] Stanley Jim MD [address] [place] [address] 06/23/2025 8:20 AM CDT Office Visit [facility] [address] [facility] [place] [address] Ella Hodge [facility] 201 [facility] [place] [address] documented as of this encounter Visit Diagnoses Not on filedocumented in this encounter Care Teams Charge Account Authorizer Relationship Specialty Start Date End Date Demetrio Shore MD PCP - General FAMILY PRACTICE 11/11/19 03/29/23 Joon Lewis PA PHYSICIAN OLD TESTAMENT PROFESSOR 05/09/21 documented as of this encounter
--- OUTSIDE RECORDS SUMMARY | 2024-10-24 11:58 | XMS_ITS | Encounter Summary ---
Author Organization [facility] Address [facility]. [place], [place] [address] [place] [address] Care Team Providers Care Crown Ceramist Name Role Phone Demetrio Shore MD Primary Care Pr ovider Unavailable Reason for Visit * Reason Comments Follow Up 2 month follow up on meds Follow Up has spot on left fac e , maybe a stitch left from skin lesion removal 1 year ago? Encounter Details Date Type Department Care Team (Late st Contact Info) Description 06/14/2020 8:40 AM CDT Office Visit [address] [place] [address] Demetrio Shore MD Follow Up (2 month follow up on meds ); Follow Up (has spot on left face , maybe a stitch left from skin lesion removal 1 year ago?) Social History Tobacco Use Types Packs/Day Years [...] Sign Reading Time Taken Comments Blood Pressure 138/62 06/14/2020 8:34 AM CDT Pulse 72 06/14/2020 8:34 AM CDT Temperature 36.2 ??C (97.2 ??F) 06/14/2020 8:34 AM CD T Respiratory Rate 16 06/14/2020 8:34 AM CDT Oxygen Saturation 98% 06/14/2020 8:34 AM CDT Inhaled Oxygen Concentration - - Weight 65.8 kg (145 lb) 06/14/2020 8:34 AM CDT Height 152.4 cm (5') 06/14/2020 8:34 AM CDT Body Mass Index 28.32 06/14/2020 8:34 AM CDT documented in this encounter Patient Instructions * Patient Instructions* Demetrio Shore MD - 06/14/2020 8:40 AM CDT Medications refilled today. Incorporate dried apricots and prunes into your diet to help with your bowel movements. You can start taking Colace (docusate) 1 tablet in the evening, instead of twice a day and see if this still helps with your bowel movements. documented in this encounter Progress Notes * Demetrio Shore MD - 06/14/2020 8:40 AM CDT Images from the original note were not included. Love Catherine is a 74-year-old female who presents today alone for evaluation of Chief Complaint Patient presents with ??? Follow Up 2 month follow up on meds ??? Follow Up has spot on left face , maybe a stitch left from skin lesion removal 1 year ago? History of Present Illness: Here today for follow-up on her meds and a spot on her face: - taking famotidine 40 mg PO daily -She states that she was previously taking famotidine 20 mg twice a day but the pharmacy does not have 20 mg tablets and it is too hard to cut the 40 mg tablets in half so she is taking 40 mg once a day -Acid reflux well controlled on famotidine - constipation taking Docusate twice a day - dried apricots used to help her have a bowel movement; has not been eating dried apricots recently but will incorporate this into her diet again - goes to the bathroom everyday after breakfast - not taking aleve everyday; has been awhile since she last used it -She had basal cell carcinoma on the left side of her lower face which was removed 1 year ago by dermatology -She states she feels like something is poking her when she touches that part of her face where shepreviously had the basal cell carcinoma removed and is wondering if there is a stitch sticking out Past Medical History: Diagnosis Date ??? Allergic [...] Outpatient Medications Medication Sig Dispense Refill ??? fpxedtzqsj-vgfwafvkkrrbn-ddwctjss 50-325-40 MG tablet Take 1 tablet by [...] times daily. Take 2 capsules BID ??? famotidine 40 MG tablet Take 1 tablet (40 mg total) by mouth daily. 90 tablet 0 ??? hypromellose 0.3 % ophthalmic gel Place into both eyes 2 (two) times daily. ??? ipratropium 0.03 % nasal spray 2 sprays by Nasal route every 12 (twelve) hours. ??? lisinopril 10 MG tablet Take 2 tablets (20 mg total) by mouth daily. 180 tablet 0 ??? montelukast 10 MG tablet [...] for pain and discharge. Respiratory: Negative for cough and shortness of breath. Cardiovascular: Negative for chest pain, palpitations and leg swelling. Gastrointestinal: Negative for abdominal pain, nausea and vomiting. Genitourinary: Negative for dysuria and hematuria. Skin: Negative for itching and rash. Objective / Physical Exam: Filed Vitals: 06/14/20 0834 BP: 138/62 Pulse: 72 Resp: 16 Temp: 97.2 ??F (36.2 ??C) TempSrc: Temporal SpO2: 98% Weight: 65.8 kg (145 lb) Height: 5' (1.524 m) PainSc: 0 (0-10 Scale) Body mass index is 28.32 kg/m??. Physical Exam Constitutional: She is oriented to person, place, and time. She appears well- developed and well-nourished. No distress. HENT: Head: Normocephalic and atraumatic. Eyes: Conjunctivae and EOM are normal. Right eye exhibits no discharge. Left eye exhibits no discharge. Neck: Normal range of motion. Neck supple. [...] is no tenderness. Thereis no guarding. Musculoskeletal: Normal range of motion. She exhibits no edema. Neurological: She is alert and oriented to person, place, and time. Skin: Skin is warm. She is not diaphoretic. No erythema. Psychiatric: She has a normal mood and affect. Her behavior is normal. Vitals reviewed. Lab / In Office Testing / Radiograph review: No results found for this visit on 06/14/20. Assessment/Plan: 1. Essential hypertension BASIC METABOLIC PANEL lisinopril 10 MG tablet 2. Mixed hyperlipidemia LIPID PANEL pravastatin 20 MG tablet 3. Gastroesophageal reflux disease without esophagitis famotidine 40 MG tablet 4. Chronic rhinitis montelukast 10 MG tablet -Blood pressure well controlled refilled lisinopril 10 mg 2 pills once a day -Ordered a BMP to check her kidney function electrolytes; BMP last done in October 2019 -She has mixed hyperlipidemia ordered a lipid panel that was drawn today refilled pravastatin 20 mgonce a day -She has acid reflux and is taking Pepcid 40 mg once a day because the pharmacy did not have the 20mg pills; refill the 40 mg once a day today -She also has chronic rhinitis; refilled Singulair 10 mg once a day and she will continue to use her ipratropium nasal spray -No new lesions on the left side of her face where she previously had basal cell carcinoma however there was a little white piece sticking out from the skin; could not tell whether was a stitch or itwas actually her skin that was bothering her but this little piece was removed using tweezers and she no longer has pain in that area Followup Plan: Return in about 6 months (around 12/15/2020) for HTN follow-up. Instructions on the sign/symptoms [...] Allquestions answered to the patient's verbalized satisfaction. Demetrio Shore MD Family Medicine [facility] documented in this encounter Plan of Treatment Upcoming Encounters Date Type Department Care Team (Late st Contact Info) Description 11/02/2024 8:00 AM BUTTER PRINTER Office Visit [facility] [address] [facility] [place] [address] Ella Hodge [facility] 201 [facility] [place], [place] [id number] 01/19/2025 11:00 AM CDT Office Visit [facility] Pul[facility] - [address] [place] [address] Stanley Jim MD [address] [place] [address] 06/23/2025 8:20 AM CDT Office Visit [address] [place] [address] Ella Hodge [address] [place], [place] [id number] documented as of this encounter Procedures Procedure Name Priority Date/Time Associated Diagnosis Comments BASIC METABOLIC PANEL Routine 06/14/2020 9:20 AM CDT Essential hypertension LIPID PANEL Routine 06/14/2020 9:20 AM CDT Mixed hyperlipidemia documented in this encounter Results * BASIC METABOLIC PANEL (06/14/2020 9:20 AM CDT) [facility] Signature GLUCOSE 92 70 - 99 mg/dL [facility] SODIUM S/P/B 139 136 - 145 mmol/L [facility] POTASSIUM S/P/B 4.3 3.5 - 5.1 mmol/L [facility] CHLORIDE S/P/B 105 100 - 108 mmol/L [facility] CO2 24 21 - 32 mmol/L [facility] BUN 17 7 - 18 mg/dL [facility] CREATININE S/P/B 0.8 0.5 - 1.2 mg/dL [facility] CALCIUM S/P/B 9.3 8.5 - 10.1 mg/dL [facility] PATIENT'S AGE 74 YEARS [facility] EGFR NON-AFR. AMER. 74 ml/min [facility] EGFR AFR. AMER. 90 ml/min [facility] ANION GAP 14 8 - 20 [facility] Comment: ? GFR INTERPRETATION According to the National Kidney Foundation, normal results range from 90 to 120 mL/min/1.73 m2. Older people will have lower than normal GFR levels, because GFR decreases with age. Normal value ranges may vary slightly among different laboratories 06/14/2020 9:20 AM CDT 06/14/2020 12:04 PM CDT Demetrio Shore MD LABORATORY Final Result Performing Organization Address [facility]/State/ZIP Co de Phone Number [facility] [address] [facility] [place] [address] * LIPID PANEL (06/14/2020 9:20 AM CDT) CHOLESTEROL 188 0 - 200 mg/dL [facility] TRIGLYCERIDES 79 0 - 150 mg/dL [facility] HDL 59 40 - 60 mg/dL [facility] LDL (CALCULATED) 113 10 - 130 mg/dL [facility] CARDIO RISK 3 [facility] Comment: ?CHOLESTEROL LEVELS AND CHD RISK INTERPRETATIONS [...] CHD RATIO ARE INVALID IF TRIGLYCERIDES >450 06/14/2020 9:20 AM CDT 06/14/2020 12:04 PM CDT Demetrio Shore MD LABORATORY Final Result Performing Organization Address City/State/[facility] Phone Number [facility] [address] [address] documented in this encounter Visit Diagnoses Diagnosis Essential hypertension- Primary Unspecified essential hypertension Mixed hyperlipidemia Gastroesophageal reflux disease without esophagitis Esophageal reflux Chronic rhinitis documented in this encounter Care Teams Crown Ceramist Relationship Specialty Start Date End Date Demetrio Shore MD PCP - General FAMILY PRACTICE 11/11/19 03/29/23 documented as of this encounter
--- OUTSIDE RECORDS SUMMARY | 2024-10-24 11:58 | XMS_ITS | Encounter Summary ---
Author Organization [facility] Address [address] [place] [address]. [place], [place] [address] [place] [address] Care Team Providers Care Director Metabolism Name Role Phone Demetrio Shore MD Primary Care Pr ovider Joon Wolf PA Unavailable [phone] Encounter Details Date Type Department Care Team (Late st Contact Info) Description 05/10/2021 Orders Only [facility] [address] [facility] [place] [address] Demetrio Shore MD Social History Tobacco Use [...] st Contact Info) Description 11/02/2024 8:00 AM NEWS GATHERING TECHNICIAN Office Visit [facility] [address] [place] [id number] Ella Hodge [facility] 201 [facility] [place] [address] 01/19/2025 11:00 AM CDT Office Visit [facility] [address] [place] [address] Stanley Jim MD [address] [place] [address] 06/23/2025 8:20 AM CDT Office Visit [facility] [address] [facility] [place] [place] [phone] [facility] [address] [facility] [place] [address] documented as of this encounter Procedures Procedure Name Priority Date/Time Associated Diagnosis Comments MG SCREENING ANDREA DIGI 05/10/2021 8:37 AM CDT documented in this encounter Results * MG SCREENING ANDREA DIGI (05/10/2021 8:37 AM CDT) Anatomical Region Laterality Modality Breast Bilateral Mammography 05/10/2021 8:37 AM CDT Narrative 05/10/2021 8:37 AM CDT ? [facility] ??---------NAME--------- NUMBER ??SEX AGE ?? ADMIT ?DISC. ??XRAY# ??F/C ??TYPE ??ELIOT RAMACHANDRAN E ?[id number] ??F ?? 75 ??05/10/21 ??05/10/21 [id number] MB ?O/P ? DATE OF : 1945 ?? M/R# [id number] ?PH#: [phone] ??RM ? MAMMOGRAM SCREENING WITH NEVA [id number] ?COMPLETED:05/10/21 ??8:37 TRB [id number] ? {MAMMO DX: ??SCREENING ? PHYSICIAN: TAVARES ? R ??A ??D ??I ??O ??L ??O ??G ??Y ? R ??E ??P ??O ??R ??T IMAGING STUDIES: Bilateral screening mammograms with computer-aided detection with 2-D and 3-D imaging. Tomosynthesis. DATE: 05/10/2021 8:37 AM HISTORY: MAMMO DX: ??SCREENING. ??No current complaints. Routine exam. COMPARISON: ??11/04/2018. 03/30/2020 TISSUE TYPE: Category C: The breasts are heterogeneously dense, which may obscure small masses. FINDINGS: 1. ??Bilateral screening mammograms with computer detection with ??2-D and 3-D imaging. Tomosynthesis. ??Moderate scattered ??fibroglandular tissue pattern is present. Benign nodularity. Benign calcifications. 2. ??No malignant microcalfcifications, new dominant masses, or architectural distortion. Stable benign right retroareolar nodule which is similar to more remote 2016 exam. 3. No skin thickening or nipple retraction. ??Axillary regions are within normal limits. IMPRESSION: 1. No mammographic evidence of malignancy. 2. BI-RADS Category 2 - benign findings. Annual screening mammography recommended MQSA BI-RADS Categories: Category 0 - needs [...] C) ??Study interpreted with computer aided detection. Referred By: Interpreted By: Joshua Kellogg, 05/10/2021 9:18 AM Electronically Signed By: Tomer KELLOGG M.D. ? , BOARD CERTIFIED Date/Time: 05/10/21 09:28 Procedure Note Karissa Duckworth MD - 05/10/2021 [facility] ---------NAME--------- NUMBER SEX AGE ADMIT DISC. XRAY# F/CTYPE ELIOT Diaz [id number] F 75 05/10/21 05/10/21 [id number] MBO/P DATE OF : 1945 M/R# [id number] #: [id number] MAMMOGRAM SCREENING WITH NEVA [id number] COMPLETED:05/10/21 8:37 [id number] {MAMMO DX: SCREENING PHYSICIAN: TAVARES R A D I O L O G Y R E P O R T IMAGING STUDIES: Bilateral screening mammograms with computer-aideddetection with 2-D and 3-D imaging. Tomosynthesis. DATE: 05/10/2021 8:37 AM HISTORY: MAMMO DX: SCREENING. No current complaints. Routine exam. COMPARISON: 11/04/2018. 03/30/2020 TISSUE TYPE: Category C: The breasts are heterogeneously dense, whichmay obscure small masses. FINDINGS: 1. Bilateral screening mammograms with computer detection with 2-D and3-D imaging. Tomosynthesis. Moderate scattered fibroglandular tissue patternis present. Benign nodularity. Benign calcifications. 2. No malignant microcalfcifications, new dominant masses, orarchitectural distortion. Stable benign right retroareolar nodule which is similar tomore remote 2016 exam. 3. No skin thickening or nipple retraction. Axillary regions are withinnormal limits. IMPRESSION: 1. No mammographic evidence of malignancy. 2. BI-RADS Category 2 - benign findings. Annual screening mammography recommended SA BI-RADS Categories: Category 0 - needs additional [...] C) Study interpreted with computer aided detection. Referred By: Interpreted By: Joshua Kellogg, 05/10/2021 9:18 AM Electronically Signed By: Tomer KELLOGG M.D. , BOARD CERTIFIED Date/Time: 05/10/21 09:28 Demetrio Shore MD MAMMO Final Result documented in this encounter Visit Diagnoses Not on filedocumented in this encounter Care Teams Director Metabolism Relationship Specialty Start Date End Date Demetrio Shore MD PCP - General FAMILY PRACTICE 11/11/19 03/29/23 Joon Lewis PA PHYSICIAN IUSS MASTER ANALYST 05/09/21 documented as of this encounter
--- OUTSIDE RECORDS SUMMARY | 2024-10-24 11:58 | XMS_ITS | Encounter Summary ---
Author Organization [facility] Address [facility]6 [facility]. [place], [place] [address] [place] [address] Care Team Providers Care Business Computers Teacher Name Role Phone Demetrio Shore MD Primary Care Pr ovider Unavailable Joon Lewis Unavailable [phone] Callie Guerrero DO Unavailable [phone] George Osorio MD Unavailable Sergey Ramey Unavailable Jony Pruitt DPM Unavailable Gama Graves MD Unavailable [phone] Encounter Details Date Type Department Care Team (Late st Contact Info) Description 01/12/2020 Abstract [facility] [address] [place] [address] Demetrio Shore MD Social History Tobacco Use [...] st Contact Info) Description 11/02/2024 8:00 AM CUSTODIAN SUPERVISOR Office Visit [address] [place] [address] Ella Hodge [address] [place] [address] 01/19/2025 11:00 AM CDT Office Visit [facility] [address] [place] [address] Stanley Jim MD [address] [place] [address] 06/23/2025 8:20 AM CDT Office Visit [address] [place] [address] Ella Hodge [address] [place] [address] documented as of this encounter Visit Diagnoses Not on filedocumented in this encounter Care Teams Business Computers Teacher Relationship Specialty Start Date End Date Demetrio Shore MD PCP - General FAMILY PRACTICE 11/11/19 03/29/23 Joon Lewis PA PHYSICIAN EGG SETTER 05/09/21 Callie Guerrero DO Box Lining Machine Operator OBGYN 06/14/21 [place] [address] Marco [address] Wiseman [address] [address] GASTROENTEROLOGY 06/14/21 Sergey Ramey PA [address] [place] [address] PHYSICIAN EGG SETTER 06/14/21 Jony Pruitt DPM [address] [place] [address], [address] [place] [address] Referring Physician PODIATRY/SURGERY 06/14/21 [place] [address] [place] [address] ORTHOPAEDIC SURGERY 06/14/21 documented as of this encounter
--- OUTSIDE RECORDS SUMMARY | 2024-10-24 11:58 | XMS_ITS | Encounter Summary ---
Author Organization [facility] Address [facility]6 [facility]. [place], [place] [address] [place] [address] Care Team Providers Care Sane Nurse Name Role Phone Demetrio Shore MD Primary Care Pr ovider Unavailable Joon Lewis Unavailable [phone] Callie Guerrero DO Unavailable [phone] George Osorio MD Unavailable Sergey Ramey Unavailable [phone] Jony Pruitt DPM Unavailable Gama Graves MD Unavailable [phone] Encounter Details Date Type Department Care Team (Late st Contact Info) Description 05/10/2021 Abstract [facility] Mammography [address] [place] [address] Demetrio Shore MD Social History Tobacco Use [...] st Contact Info) Description 11/02/2024 8:00 AM CURRICULUM FACILITATOR Office Visit [address] [place] [address] Ella Hodge [address] [place] [address] 01/19/2025 11:00 AM CDT Office Visit [facility] [address] [place] [address] Stanley Jim MD [address] [place] [address] 06/23/2025 8:20 AM CDT Office Visit [address] [place] [address] Ella Hodge [address] [place] [address] documented as of this encounter Visit Diagnoses Not on filedocumented in this encounter Care Teams Sane Nurse Relationship Specialty Start Date End Date Demetrio Shore MD PCP - General FAMILY PRACTICE 11/11/19 03/29/23 Joon Lewis PA PHYSICIAN DIRECTOR STAFFING 05/09/21 Callie Guerrero DO Geodetic Technician OBGYN 06/14/21 [place] [address] Marco [address]eman [address] [address] GASTROENTEROLOGY 06/14/21 Sergey Ramey PA [address] [place] [address] PHYSICIAN DIRECTOR STAFFING 06/14/21 Jony Pruitt DPM [address] [place] [address], [address] [place] [address] Referring Physician PODIATRY/SURGERY 06/14/21 [place] [address] [place] [address] ORTHOPAEDIC SURGERY 06/14/21 documented as of this encounter
--- OUTSIDE RECORDS SUMMARY | 2024-10-24 11:58 | XMS_ITS | Encounter Summary ---
Author Organization [facility] Address [address] [place] [address]. [place], [place] [address] [place] [address] Care Team Providers Care Form Tamper Name Role Phone Demetrio Shore MD Primary Care Pr ovider Unavailable Encounter Details Date Type Department Care Team (Latest Contact Info) Description 11/15/2020 Scan HEALTH INFO SRVCS Scanned, Documents Social [...] st Contact Info) Description 11/02/2024 8:00 AM RETAINING ROOM CUTTER Office Visit [facility] [address] [place] [address] Ella Hodge, [facility] [address] [place] [address] 01/19/2025 11:00 AM CDT Office Visit [facility] - [place] [address] [facility] [place] [address] Stanley Jim MD [address] [place] [address] 06/23/2025 8:20 AM CDT Office Visit [facility] [address] [place] [address] Ella Hodge FNP [address] [place] [address] documented as of this encounter Visit Diagnoses Not on filedocumented in this encounter Care Teams Form Tamper Relationship Specialty Start Date End Date Demetrio Shore MD PCP - General FAMILY PRACTICE 11/11/19 03/29/23 documented as of this encounter
--- OUTSIDE RECORDS SUMMARY | 2024-10-24 11:58 | XMS_ITS | Encounter Summary ---
Author Organization [facility] Address [address] [place] [address]. [place], [place] [id number] [place] [address] Care Team Providers Care End Maker Name Role Phone Demetrio Shore MD Primary Care Pr ovider Unavailable Reason for Visit * Reason Onset Date Comments Medication 01/16/2021 Encounter Details Date Type Department Care Team (Late st Contact Info) Description 01/16/2021 Telephone [facility] [address] [place] [address] Demetrio Shore MD Medication Social History Tobacco [...] Progress Notes * Demetrio Shore MD - 01/17/2021 3:05 PM CDTAddended by: DEMETRIO SHORE on: 01/17/2021 03:05 PM Modules accepted: Orders * Demetrio Shore MD - 01/17/2021 3:05 PM CDT Ipratropium nasal spray refilled. Demetrio Shore MD Family Medicine [facility] * Julia العراقي LPN - 01/16/2021 2:[address] Mcbride please advise. * Cora Aguila - 01/16/2021 9:24 AM CDT Patient called said she was needing to get a refill on the Ipratropium .03% nose spray it is on [facility] med list looks like she last had it back in Aug 2019 got [facility] from [facility] wondered ifDeva could fill this for her [phone] documented in this encounter Plan of Treatment Upcoming Encounters Date Type Department Care Team (Late st Contact Info) Description 11/02/2024 8:00 AM AMBULATORY CARE COORDINATOR Office Visit [facility] [address] [place] [address] Ella Hodge FNP [address] [place] [address] 01/19/2025 11:00 AM CDT Office Visit [facility] - [address] [place] [address] Stanley Jim MD [address] [place] [address] 06/23/2025 8:20 AM CDT Office Visit [facility] [address] [facility] [place] [address] Ella Hodge, [facility] [address] [place] [address] documented as of this encounter Visit Diagnoses Diagnosis Nasal congestion- Primary Other diseases of nasal cavity and sinuses documented in this encounter Care Teams End Maker Relationship Specialty Start Date End Date Demetrio Shore MD PCP - General FAMILY PRACTICE 11/11/19 03/29/23 documented as of this encounter
--- OUTSIDE RECORDS SUMMARY | 2024-10-24 11:58 | XMS_ITS | Encounter Summary ---
Author Organization [facility] Address [address] [place] [address]. [place], [place] [address] [place] [address] Care Team Providers Care De Icer Finisher Name Role Phone Demetrio Shore MD Primary Care Pr ovider Unavailable Reason for Visit * Reason Onset Date Comments Medication 06/14/2020 Encounter Details Date Type Department Care Team (Late st Contact Info) Description 06/14/2020 Telephone [facility] [address] [place] [address] Demetrio Shore MD Medication Social History Tobacco [...] Notes * Demetrio Shore MD - 06/14/2020 1:33 PM CDT Pravastatin dose changed from 20 mg daily to 40 mg daily. Her 10-year ASCVD Risk score is high at 26.5%. Demetrio Shore MD Family Medicine [facility] documented in this encounter Plan of Treatment Upcoming Encounters Date Type Department Care Team (Late st Contact Info) Description 11/02/2024 8:00 AM PIT AND AUXILIARIES SUPERVISOR Office Visit [address] [place] [address] Ella Hodge [facility] 201 [facility] [place] [address] 01/19/2025 11:00 AM CDT Office Visit [facility] [address] [place] [address] Stanley Jim MD [address] [place] [address] 06/23/2025 8:20 AM CDT Office Visit [address] [place] [address] Ella Hodge [address] [place] [address] documented as of this encounter Visit Diagnoses Diagnosis Mixed hyperlipidemia documented in this encounter Care Teams De Icer Finisher Relationship Specialty Start Date End Date Demetrio Shore MD PCP - General FAMILY PRACTICE 11/11/19 03/29/23 documented as of this encounter
--- OUTSIDE RECORDS SUMMARY | 2024-10-24 11:58 | XMS_ITS | Encounter Summary ---
Author Organization [facility] Address [address] [place] [address]. [place], [place] [phone] [place] [address] Care Team Providers Care Revenue Cycle Administrator Name Role Phone Demetrio Shore MD Primary Care Pr ovider Unavailable Encounter Details Date Type Department Care Team (Latest Contact Info) Description 02/26/2021 Travel Social History Tobacco Use Types Packs/Day [...] st Contact Info) Description 11/02/2024 8:00 AM VOUCHER EXAMINER Office Visit [address] [place] [phone] Ella Hodge, [facility] 201 [facility] [place] [address] 01/19/2025 11:00 AM CDT Office Visit [facility] - [address] [place] [address] Stanley Jim MD [address] [place] [address] 06/23/2025 8:20 AM CDT Office Visit [facility] [address] [facility] [address] [address] [place], [place] [phone] Ella Hodge [address] [place] [address] documented as of this encounter Visit Diagnoses Not on filedocumented in this encounter Care Teams Revenue Cycle Administrator Relationship Specialty Start Date End Date Demetrio Shore MD PCP - General FAMILY PRACTICE 11/11/19 03/29/23 documented as of this encounter
--- OUTSIDE RECORDS SUMMARY | 2024-10-24 11:58 | XMS_ITS | Encounter Summary ---
Author Organization [facility] Address [address] [place] [address]. [place], [place] [address] [place] [address] Care Team Providers Care Mill Representative Name Role Phone Demetrio Shore MD Primary Care Pr ovider Unavailable Encounter Details Date Type Department Care Team (Latest Contact Info) Description 05/30/2020 Scan HEALTH INFO SRVCS Scanned, Documents Social [...] ( Contact Info) Description 11/02/2024 8:00 AM CRM ANALYST Office Visit [place] [address] [place] [address] Ella Hodge [facility] 201 [facility] [place] [address] 01/19/2025 11:00 AM CDT Office Visit [facility] - [address] [place] [address] Stanley Jim MD [address] [place] [address] 06/23/2025 8:20 AM CDT Office Visit [facility] [address] [facility] [address] [place] [phone] Ella Hodge [facility] [address] [facility] [place] [address] documented as of this encounter Visit Diagnoses Not on filedocumented in this encounter Care Teams Mill Representative Relationship Specialty Start Date End Date Demetrio Shore MD PCP - General FAMILY PRACTICE 11/11/19 03/29/23 documented as of this encounter
--- OUTSIDE RECORDS SUMMARY | 2024-10-24 11:58 | XMS_ITS | Encounter Summary ---
Author Organization [facility] Address [address] [place] [address]. [place], [place] [address] [place] [address] Care Team Providers Care Spiral Winder Name Role Phone Demetrio Shore MD Primary Care Pr ovider Unavailable Reason for Visit * Reason Comments Procedure (SCAN) Encounter Details Date Type Department Care Team (Late Contact Info) Description 03/14/2021 Scan HEALTH INFO SRVCS Scanned, Documents Procedure (SCAN) Social History Tobacco Use Types Packs/Day [...] Upcoming Encounters Date Type Department Care Team ([facility] Contact Info) Description 11/02/2024 8:00 AM POLE PEELING MACHINE OPERATOR Office Visit [facility] [address] [place] [address] Ella Hodge [facility] [address] [facility] [place] [address] 01/19/2025 11:00 AM CDT Office Visit [facility] [address] [place] [address] Stanley Jim MD [address] [place] [address] 06/23/2025 8:20 AM CDT Office Visit [address] [place], [place] [phone] Ella Hodge [facility] [address] [facility] [place] [address] documented as of this encounter Procedures Procedure Name Priority Date/Time Associated Diagnosis Comments PROCEDURE GENERIC (SCAN ORDER) 03/14/2021 PROCEDURE GENERIC (SCAN ORDER) 03/14/2021 documented in this encounter Results * PROCEDURE GENERIC (03/14/2021) 03/14/2021 Narrative 03/14/2021 Ordered by an unspecified provider. us Documents Scanned SCANNING Final Result * PROCEDURE GENERIC (03/14/2021) 03/14/2021 Narrative 03/14/2021 Ordered by an unspecified provider. us Documents Scanned SCANNING Final Result documented in this encounter Visit Diagnoses Not on filedocumented in this encounter Care Teams Spiral Winder Relationship Specialty Start Date End Date Demetrio Shore MD PCP - General FAMILY PRACTICE 11/11/19 03/29/23 documented as of this encounter
--- OUTSIDE RECORDS SUMMARY | 2024-10-24 11:58 | XMS_ITS | Encounter Summary ---
Author Organization [facility] Address [address] [place] [address]. [place], [place] [address] [place] [address] Care Team Providers Care Debone Processing Supervisor Name Role Phone Demetrio Shore MD Primary Care Pr ovider Unavailable Reason for Visit * Reason Comments ECG (SCAN) Encounter Details Date Type Department Care Team (Latest Contact Info) Description 02/26/2021 Scan HEALTH INFO SRVCS Scanned, Documents ECG (SCAN) Social History Tobacco Use Types Packs/Day [...] ( Contact Info) Description 11/02/2024 8:00 AM DATA OPERATIONS LEADER Office Visit [address] [place] [address] Ella Hodge [facility] [address] [facility] [place] [address] 01/19/2025 11:00 AM CDT Office Visit [facility] Medical [facility] Pul[facility]ology [facility]ty Clinic - [address] [place] [address] Stanley Jim MD [address] [place] [address] 06/23/2025 8:20 AM CDT Office Visit [address] [place] [phone] Ella Hodge [address] [place] [address] documented as of this encounter Procedures Procedure Name Priority Date/Time Associated Diagnosis Comments ECG GENERIC (SCAN ORDER) 02/26/2021 documented in this encounter Results * ECG GENERIC (02/26/2021) 02/26/2021 Narrative 02/26/2021 Ordered by an unspecified provider. us Documents Scanned SCANNING Final Result documented in this encounter Visit Diagnoses Not on filedocumented in this encounter Care Teams Debone Processing Supervisor Relationship Specialty Start Date End Date Demetrio Shore MD PCP - General FAMILY PRACTICE 11/11/19 03/29/23 documented as of this encounter
--- OUTSIDE RECORDS SUMMARY | 2024-10-24 11:58 | XMS_ITS | Encounter Summary ---
Author Organization [facility] Address [address] [place] [address]. [place], [place] [address] [place] [address] Care Team Providers Care Surface Logging Systems Logger Name Role Phone Demetrio Shore MD Primary Care Pr ovider Unavailable Encounter Details Date Type Department Care Team (Latest Contact Info) Description 08/29/2020 Scan HEALTH INFO SRVCS Scanned, Documents Social [...] COVID-19? No / Unsure 08/28/2020 3:35 PM CLIENT SUCCESS MANAGER documented as of this encounter Plan of Treatment Upcoming Encounters Date Type Department Care Team ( Contact Info) Description 11/02/2024 8:00 AM CLIENT SUCCESS MANAGER Office Visit [address] [place] [address] Ella Hodge [facility] 201 [facility] [place] [address] 01/19/2025 11:00 AM CDT Office Visit [facility] Medical [facility] Pul[facility]ology [facility]ty Clinic - [address] [place] [address] Stanley Jim MD [address] [place] [address] 06/23/2025 8:20 AM CDT Office Visit [facility] 201 [facility] [place] [address] Ella Hodge [address] [place] [address] documented as of this encounter Visit Diagnoses Not on filedocumented in this encounter Care Teams Surface Logging Systems Logger Relationship Specialty Start Date End Date Demetrio Shore MD PCP - General FAMILY PRACTICE 11/11/19 03/29/23 documented as of this encounter
--- OUTSIDE RECORDS SUMMARY | 2024-10-24 11:59 | XMS_ITS | Encounter Summary ---
Author Organization [facility] Address [address] [place] [address]. [place], [place] [address] [place] [address] Care Team Providers Care Ms Sql Developer Name Role Phone Ziggy Harding MD Primary Care Provider + [phone] Demetrio Shore MD Primary Care Pr ovider Unavailable Reason for Visit * Reason Comments Lab (SCAN) ECG (SCAN) Image (SCAN) Encounter Details Date Type Department Care Team (Late st Contact Info) Description 10/28/2019 Scan HEALTH INFO SRVCS Scanned, Documents Lab (SCAN); ECG (SCAN); Image (SCAN) Social History Tobacco Use Types Packs/Day [...] st Contact Info) Description 11/02/2024 8:00 AM PHARMACY BENEFIT MANAGER Office Visit [address] [place] [address] Ella Hodge [facility] [address] [facility] [place] [address] 01/19/2025 11:00 AM CDT Office Visit [facility] [address] [place] [address] Stanley Jim MD [address] [place] [address] 06/23/2025 8:20 AM CDT Office Visit [address] [place] [address] Ella Hodge [address] [place] [address] documented as of this encounter Procedures Procedure Name Priority Date/Time Associated Diagnosis Comments ECG GENERIC (SCAN ORDER) 10/28/2019 ECG GENERIC (SCAN ORDER) 10/28/2019 OUTSIDE LAB (SCAN ORDER) 10/28/2019 OUTSIDE LAB (SCAN ORDER) 10/28/2019 OUTSIDE LAB (SCAN ORDER) 10/28/2019 IMAGE GENERIC 10/28/2019 documented in this encounter Results * OUTSIDE LAB (SCAN) (10/28/2019) 10/28/2019 Narrative 10/28/2019 Ordered by an unspecified provider. us Documents Scanned SCANNING Final Result * OUTSIDE LAB (SCAN) (10/28/2019) 10/28/2019 Narrative 10/28/2019 Ordered by an unspecified provider. us Documents Scanned SCANNING Final Result * OUTSIDE LAB (SCAN) (10/28/2019) 10/28/2019 Narrative 10/28/2019 Ordered by an unspecified provider. us Documents Scanned SCANNING Final Result * IMAGE GENERIC (10/28/2019) Anatomical Region Laterality Modality Other 10/28/2019 Narrative 10/28/2019 Ordered by an unspecified provider. us Documents Scanned SCANNING Final Result * ECG GENERIC (10/28/2019) 10/28/2019 Narrative 10/28/2019 Ordered by an unspecified provider. us Documents Scanned SCANNING Final Result * ECG GENERIC (10/28/2019) 10/28/2019 Narrative 10/28/2019 Ordered by an unspecified provider. us Documents Scanned SCANNING Final Result documented in this encounter Visit Diagnoses Not on filedocumented in this encounter Care Teams Ms Sql Developer Relationship Specialty Start Date End Date Ziggy Harding MD [address] [facility] [place] [address] PCP - General FAMILY PRACTICE 09/21/18 11/10/19 Demetrio Shore MD [address] [facility] [place] [address] PCP - General FAMILY PRACTICE 11/11/19 03/29/23 documented as of this encounter
--- OUTSIDE RECORDS SUMMARY | 2024-10-24 11:59 | XMS_ITS | Encounter Summary ---
Author Organization [facility] Address [facility]. [place], [place] [address] [place] [address] Care Team Providers Care Knocker Out Name Role Phone Ziggy Harding MD Primary Care Provider [phone] Reason for Visit * Reason Onset Date Comments Refill Request 10/29/2019 Encounter Details Date Type Department Care Team (Late st Contact Info) Description 10/29/2019 Telephone [facility] [address] [place] [phone] Jutsyna Chan V, [facility] [address] [place] [address] Refill Request Social History Tobacco Use Types [...] Progress Notes * Julia العراقي LPN - 10/29/2019 4:53 PM CST Pt aware a refill Lisinopril 20mg #30 was done on 10/21/19. Pt is going to have BMP done Friday andf/u with OV on Friday. Pt will call [facility] for refill. LE MAKING SUPERVISOR * Awilda Wooten - 10/29/2019 9:56 AM CST Was on 10mg Lisinopril. Then moved up to 20mg. Rx that was called in last was 10mg for #30 tablets for 2 pills at a time, so 15 day supply. Patient will run out of med on Wednesday 11/01. Patient requesting more Lisinopril to be sent to [facility]. LE MAKING SUPERVISOR documented in this encounter Plan of Treatment Upcoming Encounters Date Type Department Care Team (Late st Contact Info) Description 11/02/2024 8:00 AM CANDLE MAKING SUPERVISOR Office Visit [address] [place] [address] Ella Hodge FNP [address] [place] [address] 01/19/2025 11:00 AM CDT Office Visit [facility]ty Clinic - [address] [place] [address] Stanley Jim MD [address] [place] [address] 06/23/2025 8:20 AM CDT Office Visit [address] [place] [address] Ella Hodge FNP [address] [facility] [place] [address] documented as of this encounter Visit Diagnoses Not on filedocumented in this encounter Care Teams Knocker Out Relationship Specialty Start Date End Date Ziggy Harding MD [address] [place] [address] [place] [address] PCP - General FAMILY PRACTICE 09/21/18 11/10/19 documented as of this encounter
--- OUTSIDE RECORDS SUMMARY | 2024-10-24 11:59 | XMS_ITS | Encounter Summary ---
Author Organization [facility] Address [address] [place] [address]. [place], [place] [address] [place] [address] Care Team Providers Care Machining Department Supervisor Name Role Phone Demetrio Shore MD Primary Care Pr ovider Unavailable Reason for Visit * Reason Comments Image (SCAN) Encounter Details Date Type Department Care Team (Latest Contact Info) Description 11/17/2019 Scan HEALTH INFO SRVCS Scanned, Documents Image (SCAN) Social History Tobacco Use Types [...] st Contact Info) Description 11/02/2024 8:00 AM BRAND DEVELOPMENT MANAGER Office Visit [facility] [address] [place] [address] Ella Hodge, [facility] [address] [place] [address] 01/19/2025 11:00 AM CDT Office Visit [facility] Medical [facility] Pulmonology [facility]ty Clinic - [address] [place] [address] Stanley Jim MD [address] [place] [address] 06/23/2025 8:20 AM CDT Office Visit [facility] 201 [facility] [place] [address] Ella Hodge FNP [address] [place] [phone] documented as of this encounter Procedures Procedure Name Priority Date/Time Associated Diagnosis Comments IMAGE GENERIC Routine 11/17/2019 IMAGE GENERIC Routine 11/17/2019 documented in this encounter Results * IMAGE STUDY (11/17/2019) Anatomical Region Laterality Modality Other us Documents Scanned SCANNING Final Result * IMAGE STUDY (11/17/2019) Anatomical Region Laterality Modality Other us Documents Scanned SCANNING Final Result documented in this encounter Visit Diagnoses Not on filedocumented in this encounter Care Teams Machining Department Supervisor Relationship Specialty Start Date End Date Demetrio Shore MD PCP - General FAMILY PRACTICE 11/11/19 03/29/23 documented as of this encounter
--- OUTSIDE RECORDS SUMMARY | 2024-10-24 11:59 | XMS_ITS | Encounter Summary ---
Author Organization [facility] Address [address] [place] [address]. [place], [place] [address] [place] [address] Care Team Providers Care Resident Service Coordinator Name Role Phone Demetrio Shore MD Primary Care Pr ovider Unavailable Reason for Visit * Reason Onset Date Comments Lab Order 12/01/2019 Encounter Details Date Type Department Care Team (Late st Contact Info) Description 12/01/2019 Telephone [facility] [address] [facility] [place] [address] Demetrio Shore MD Lab Order Social History [...] as of this encounter Progress Notes * Xin Guerra MA - 12/01/2019 2:51 PM CST Patient verbally understood and is aware. Will go to hospital next Friday to have labs done. NG MACHINE OPERATOR NG MACHINE OPERATOR * Demetrio Shore MD - 12/01/2019 2:32 PM CST Please have patient repeat hemoglobin and hematocrit in 1 week. It went down from about 10.7 to 9.9. Started iron supplements for her. We can recheck to make sure it's not dropping any further. If she has any lightheadedness, Worsening fatigue, shortness of breath or chest pain please advise her togo to the ER as this could be due to low hemoglobin levels. Demetrio Shore MD Family Medicine [facility], MOB A NG MACHINE OPERATOR documented in this encounter Plan of Treatment Upcoming Encounters Date Type Department Care Team (Late st Contact Info) Description 11/02/2024 8:00 AM KEYING MACHINE OPERATOR Office Visit [address] [place] [address] Ella Hodge [address] [place], [place] [phone] 01/19/2025 11:00 AM CDT Office Visit [facility] Medical Group Pulmonology Specialty Clinic - [address] [place] [address] Stanley Jim MD [address] [place] [address] 06/23/2025 8:20 AM CDT Office Visit [address] [place], [place] [phone] Ella Hodge FNP [address] [place] [address] [place] [address] documented as of this encounter Procedures Procedure Name Priority Date/Time Associated Diagnosis Comments HEMOGLOBIN AND HEMATOCRIT Routine 12/08/2019 9:40 AM KEYING MACHINE OPERATOR Postoperative anemia documented in this encounter Results * (ABNORMAL) HEMOGLOBIN AND HEMATOCRIT (12/08/2019 9:40 AM KEYING MACHINE OPERATOR) HGB 10.5(L) 12.0 - 16.0 g/dL [facility] HCT 33.4(L) 36.0 - 46.0 % [facility] 12/08/2019 9:40 AM KEYING MACHINE OPERATOR 12/08/2019 9:40 AM KEYING MACHINE OPERATOR us Demetrio Shore MD LABORATORY Final Result [facility] [address] [facility] [address] [place] [address] documented in this encounter Visit Diagnoses Diagnosis Postoperative anemia- Primary Anemia, unspecified documented in this encounter Care Teams Resident Service Coordinator Relationship Specialty Start Date End Date Demetrio Shore MD PCP - General FAMILY PRACTICE 11/11/19 03/29/23 documented as of this encounter
--- OUTSIDE RECORDS SUMMARY | 2024-10-24 11:59 | XMS_ITS | Encounter Summary ---
Author Organization [facility] Address Critical access hospital6 [facility]. [place], [place] [address] [place] [address] Care Team Providers Care Lineman Name Role Phone Ziggy Harding MD Primary Care Provider [phone] Reason for Visit * Reason Comments Runny Nose Scheduled to have hi p surgery 11/17/2019. Runny nose, eye water, started last night Encounter Details Date Type Department Care Team (Late st Contact Info) Description 11/10/2019 11:00 AM UNDERGROUND TRUCK OPERATOR Office Visit [address] [place] [address] Demetrio Shore MD Runny Nose (Scheduled to have hip surgery 11/17/2019. Runny nose, eye water, started last night) Social History Tobacco Use Types Packs/Day Years [...] Sign Reading Time Taken Comments Blood Pressure 136/74 11/10/2019 11:06 AM UNDERGROUND TRUCK OPERATOR Pulse 70 11/10/2019 11:06 AM UNDERGROUND TRUCK OPERATOR Temperature 37 ??C (98.6 ??F) 11/10/2019 11:06 AM UNDERGROUND TRUCK OPERATOR Respiratory Rate 18 11/10/2019 11:06 AM UNDERGROUND TRUCK OPERATOR Oxygen Saturation 98% 11/10/2019 11:06 AM UNDERGROUND TRUCK OPERATOR Inhaled Oxygen Concentration - - Weight 67.4 kg (148 lb 9 oz) 11/10/2019 11:06 AM UNDERGROUND TRUCK OPERATOR Height 152.4 cm (5') 11/10/2019 11:06 AM UNDERGROUND TRUCK OPERATOR Body Mass Index 29.01 11/10/2019 11:06 AM UNDERGROUND TRUCK OPERATOR documented in this encounter Patient Instructions * Patient Instructions* Demetrio Shore MD - 11/10/2019 11:00 AM UNDERGROUND TRUCK OPERATOR Take zyrtec every night for the next few days. Use your nasal spray twice a day. If your symptoms worsen or you develop a fever or sinus pain notify us immediately and your surgeon. Otherwise no antibiotics required at this time. RGROUND TRUCK OPERATOR documented in this encounter Progress Notes * Demetrio Shore MD - 11/10/2019 11:00 AM CST Love Catherine is a 74-year-old female who presents today alone for evaluation of Chief Complaint Patient presents with ??? Runny Nose Scheduled to have hip surgery 11/17/2019. Runny nose, eye water, started last night History of Present Illness: Patient here due to a runny nose and watery eyes: - she states that her left nose was clogged last night and was blowing her nose - she noticed that her left eye was also tearing a bit - she has no sinus pressure or pain - no cough, shortness of breath or chest pain - no ear pain or ear discharge - she is scheduled to have a R hip replacement on 11/17/2019 and so was advised by her surgeon's office to come in to be assessed to make sure that she does not require antibiotics because if she does then her surgery will need to be rescheduled. - she has no fever or chills - she states she feels fine otherwise - she does take Zyrtec every night - has not been using her ipratropium nasal spray everyday Health Cristo crane was reviewed. Medications: Current Outpatient Medications Medication Sig Dispense Refill ??? rsfdkvjhwh-xzppojnceqgss-vxukwwgi 50-325-40 MG tablet Take 1 tablet by mouth every 4 (four) hours as needed. ??? ipratropium 0.03 % nasal spray 2 sprays by Nasal route every 12 (twelve) hours. ??? lisinopril 20 MG tablet Take 1 tablet (20 mg total) by mouth daily. 30 tablet 0 ??? MONTELUKAST 10 MG tablet TAKE 1 TABLET BY MOUTH EVERY DAY 30 tablet 0 ??? Polyethyl Glycol-Propyl Glycol (SYSTANE OP) ??? PRAVASTATIN 20 MG tablet TAKE 1 TABLET BY MOUTH EVERY DAY 30 tablet 0 ??? ranitidine 150 MG tablet Take 1 tablet (150 mg total) by mouth 2 (two) times daily. 180 tablet 1 ??? meloxicam 7.5 MG tablet Take 1 tablet (7.5 mg total) by mouth daily as needed for Pain. 30 tablet 0 ??? omega-3 fatty acid 1000 MG capsule [...] the HPI also including: Review of Systems HENT: Negative for sore throat. Eyes: Negative for redness. Respiratory: Negative for wheezing. Cardiovascular: Negative for palpitations and leg swelling. Gastrointestinal: Negative for abdominal pain, diarrhea, nausea and vomiting. Genitourinary: Negative for dysuria and hematuria. Skin: Negative for itching and rash. Objective / Physical Exam: Filed Vitals: 11/10/19 1106 BP: 136/74 Pulse: 70 Resp: 18 Temp: 98.6 ??F (37 ??C) TempSrc: Tympanic SpO2: 98% Weight: 67.4 kg (148 lb 9 oz) Height: 5' (1.524 m) Body mass index is 29.01 kg/m??. Physical Exam Constitutional: She is oriented to person, place, and time. She appears well- developed and well-nourished. No distress. HENT: Head: Normocephalic and atraumatic. Right Ear: Tympanic membrane and external ear normal. Left Ear: Tympanic membrane and external ear normal. Nose: Mucosal edema present. No rhinorrhea. Mouth/Throat: Oropharynx is clear and moist. Eyes: Conjunctivae and EOM are normal. Right [...] range of motion. She exhibits no edema. Lymphadenopathy: She has no cervical adenopathy. Neurological: She is alert and oriented to person, place, and time. Skin: Skin is warm. She is not diaphoretic. No erythema. Psychiatric: She has a normal mood and affect. Her behavior is normal. Vitals reviewed. Lab / In Office Testing / Radiograph review: No results found for this visit on 11/10/19. Assessment/Plan: 1. Nasal congestion 2. Rhinorrhea - patient's symptoms of nasal congestion and rhinorrhea started yesterday; otherwise no cough, sorethroat or sinus pressure or pain - likely viral vs seasonal allergies - continue Zyrtec daily and use the nasal spray twice a day - no antibiotics required - if symptoms worsen then RTC for further evaluation - patient will inform her surgeon - patient is otherwise stable and doing well Followup Plan: Return if symptoms worsen or [...] the patient's verbalized satisfaction. Patient Instructions Take zyrtec every night for the next few days. Use your nasal spray twice a day. If your symptoms worsen or you develop a fever or sinus pain notify us immediately and your surgeon. Otherwise no antibiotics required at this time. Demetrio Shore MD Family Medicine [facility], MOB A RGROUND TRUCK OPERATOR documented in this encounter Plan of Treatment Upcoming Encounters Date Type Department Care Team (Late st Contact Info) Description 11/02/2024 8:00 AM UNDERGROUND TRUCK OPERATOR Office Visit [address] [place] [address] Ella Hodge [facility] [address] [facility] [place] [address] 01/19/2025 11:00 AM CDT Office Visit [facility] [address] [facility] [address] Stanley Jim MD [address] [place] [address] 06/23/2025 8:20 AM CDT Office Visit [address] [place] [address] Ella Hodge FNP [address] [facility] [place] [address] documented as of this encounter Visit Diagnoses Diagnosis Nasal congestion- Primary Other diseases of nasal cavity and sinuses Rhinorrhea Other diseases of nasal cavity and sinuses documented in this encounter Care Teams Lineman Relationship Specialty Start Date End Date Ziggy Harding MD [address] [facility] [place] [address] PCP - General FAMILY PRACTICE 09/21/18 11/10/19 documented as of this encounter
--- OUTSIDE RECORDS SUMMARY | 2024-10-24 11:59 | XMS_ITS | Encounter Summary ---
Author Organization [facility] Address Formerly [facility], [facility]. [place], [place] [address] [place] [address] Care Team Providers Care Training And Development Rep Name Role Phone Demetrio Shore MD Primary Care Pr ovider Unavailable Joon Lewis Unavailable [phone] Callie Guerrero DO Unavailable George Osorio MD Unavailable Sergey Ramey Unavailable Jony Pruitt DPM Unavailable Gama Graves MD Unavailable [phone] Encounter Details Date Type Department Care Team (Late st Contact Info) Description 11/26/2019 Abstract [facility] [address] [place] [address] Demetrio Shore MD Social History Tobacco Use [...] st Contact Info) Description 11/02/2024 8:00 AM LIQUID CENTER ASSEMBLER Office Visit [address] [place] [address] Ella Hodge [address] [place] [address] 01/19/2025 11:00 AM CDT Office Visit [facility] [address] [place] [address] Stanley Jim MD [address] [place] [address] 06/23/2025 8:20 AM CDT Office Visit [address] [place] [address] Ella Hodge [address] [place] [address] documented as of this encounter Visit Diagnoses Not on filedocumented in this encounter Care Teams Training And Development Rep Relationship Specialty Start Date End Date Demetrio Shore MD PCP - General FAMILY PRACTICE 11/11/19 03/29/23 Joon Lewis PA PHYSICIAN WAFER MOUNTER 05/09/21 Callie Guerrero DO Virtual Assistant For Advertisers OBGYN 06/14/21 [place] [address] Marco A Wiseman [address] [address] GASTROENTEROLOGY 06/14/21 Sergey Ramey PA [address] [place] [address] PHYSICIAN WAFER MOUNTER 06/14/21 Jony Pruitt DPM [address] [place] [address], [address] [place] [address] Referring Physician PODIATRY/SURGERY 06/14/21 [place] [address] [place] [address] ORTHOPAEDIC SURGERY 06/14/21 documented as of this encounter
--- OUTSIDE RECORDS SUMMARY | 2024-10-24 11:59 | XMS_ITS | Encounter Summary ---
Author Organization [facility] Address Critical access hospital6 [facility]. [place], [place] [address] [place] [address] Care Team Providers Care Visual Education Director Name Role Phone Ziggy Harding MD Primary Care Provider [phone] Demetrio Shore MD Primary Care Pr ovider Unavailable Encounter Details Date Type Department Care Team (Latest Contact Info) Description 11/04/2019 Scan HEALTH INFO SRVCS Scanned, Documents Social [...] ( Contact Info) Description 11/02/2024 8:00 AM BLENDING TECHNICIAN Office Visit [facility] [address] [place] [id number] Ella Hodge, [facility] [address] [place] [address] 01/19/2025 11:00 AM CDT Office Visit [facility] Medical Group [facility] [place] [address] [facility] [place] [address] Stanley Jim MD [address] [address] 06/23/2025 8:20 AM CDT Office Visit [facility] [address] [place] [address] Ella Hodge FNP [address] [place] [address] documented as of this encounter Visit Diagnoses Not on filedocumented in this encounter Care Teams Visual Education Director Relationship Specialty Start Date End Date Ziggy Harding MD [address] [facility] [place] [address] PCP - General FAMILY PRACTICE 09/21/18 11/10/19 Demetrio Shore MD [address] [facility] [place] [address] PCP - General FAMILY PRACTICE 11/11/19 03/29/23 documented as of this encounter
--- OUTSIDE RECORDS SUMMARY | 2024-10-24 11:59 | XMS_ITS | Encounter Summary ---
Author Organization [facility] Address [address] [place] [address]. [place], [place] [address] [place] [address] Care Team Providers Care Healthcare Consultant Name Role Phone Demetrio Shore MD Primary Care Pr ovider Unavailable Encounter Details Date Type Department Care Team (Late st Contact Info) Description 12/22/2019 Orders Only [address] [place] [address] Demetrio Shore MD Social History Tobacco Use [...] Contact Info) Description 11/02/2024 8:00 AM MEDICAL NUMERICAL CONTROL OPERATOR Office Visit [facility] [address] [facility] [address] [place] [id number] Ella Hodge FNP [address] [place] [address] 01/19/2025 11:00 AM CDT Office Visit [facility] Medical Group [facility] [place] [address] [facility] [place] [address] Stanley Jim MD [address] [place] [address] 06/23/2025 8:20 AM CDT Office Visit [facility] [address] [facility] [place] [address] Ella Hodge FNP [address] [place] [address] documented as of this encounter Procedures Procedure Name Priority Date/Time Associated Diagnosis Comments IRON SAT PANEL (IRON,IBC,%SAT) Routine 12/22/2019 11:00 AM MEDICAL NUMERICAL CONTROL OPERATOR CBC W/DIFF AUTOMATED Routine 12/22/2019 11:00 AM MEDICAL NUMERICAL CONTROL OPERATOR FERRITIN Routine 12/22/2019 11:00 AM MEDICAL NUMERICAL CONTROL OPERATOR documented in this encounter Results * FERRITIN (12/22/2019 11:00 AM MEDICAL NUMERICAL CONTROL OPERATOR) FERRITIN 101 8 - 388 ng/mL [facility] 12/22/2019 11:0 0 AM MEDICAL NUMERICAL CONTROL OPERATOR 12/22/2019 1:28 PM MEDICAL NUMERICAL CONTROL OPERATOR Demetrio Shore MD LABORATORY Final Result [facility] [address] [place] [address] * IRON SAT PANEL (IRON,IBC,%SAT) (12/22/2019 11:00 AM MEDICAL NUMERICAL CONTROL OPERATOR) IRON 124 50 - 170 ug/dL [facility] IRON BINDING CAPACITY 346 250 - 420 ug/dL [facility] O2 SATURATION 35.8 20.0 - 55.0 % [facility] 12/22/2019 11:0 0 AM MEDICAL NUMERICAL CONTROL OPERATOR 12/22/2019 1:28 PM MEDICAL NUMERICAL CONTROL OPERATOR Demetrio Shore MD LABORATORY Final Result [address] [address] * (ABNORMAL) CBC W/DIFF AUTOMATED (12/22/2019 11:00 AM MEDICAL NUMERICAL CONTROL OPERATOR) WBC 4.7 4.5 - 11.0 cmm [facility] RBC 3.7(L) 4.0 - 5.2 M/cumm [facility] HGB 11.4(L) 12.0 - 16.0 g/dL [facility] HCT 35.8(L) 36.0 - 46.0 % [facility] MCV 97.5 80.0 - 100 fL [facility] MCH 31.1 26.0 - 34.0 pg [facility] MCHC 31.8 31.0 - 37.0 g/dL [facility] RDW 13.2 11.6 - 14.8 % [facility] PLT 291 140 - 415 cmm [facility] MPV 10 7 - 12 fl [facility] ABS. NEUTROPHILS 2.06 1.50 - 8.00 x10^3 [facility] ABS. LYMPHOCYTES 1.83 0.21 - 5.42 x10^3 [facility] ABS. MONOCYTES 0.60 0.04 - 1.37 x10^3 [facility] ABS. EOSINOPHILS 0.17 0.00 - 0.68 x10^3 [facility] ABS. BASOPHILS 0.02 0.00 - 0.08 x10^3 [facility] ABS. IMMATURE GRANULOCYTES 0.00 0.00 - 0.06 x10^3 [facility] NEUTROPHILS % 44.1 40.0 - 74.0 % [facility] LYMPHOCYTES % 39.1 14.0 - 46.0 % [facility] MONOCYTES % 12.8 4.0 - 13.0 % [facility] EOSINOPHILS % 3.6 0.0 - 7.0 % [facility] BASOPHILS % 0.4 0.0 - 3.0 % [facility] IMMATURE GRANS % 0.00 0.00 - 0.43 % [facility] MANUAL DIFFERENTIAL NOT INDICATED [facility] WBC MORPHOLOGY NOT INDICATED H [facility] RBC MORPHOLOGY NOT INDICATED H [facility] PLT MORPH. NOT INDICATED [facility] 12/22/2019 11:0 0 AM MEDICAL NUMERICAL CONTROL OPERATOR 12/22/2019 1:28 PM MEDICAL NUMERICAL CONTROL OPERATOR Demetrio Shore MD LABORATORY Final Result [facility] [address] [place] [address] documented in this encounter Visit Diagnoses Not on filedocumented in this encounter Care Teams Healthcare Consultant Relationship Specialty Start Date End Date Demetrio Shore MD PCP - General FAMILY PRACTICE 11/11/19 03/29/23 documented as of this encounter
--- OUTSIDE RECORDS SUMMARY | 2024-10-24 11:59 | XMS_ITS | Encounter Summary ---
Author Organization [facility] Address [address] [place] [address]. [place], [place] [address] [place] [address] Care Team Providers Care Heel Curver Name Role Phone Ziggy Harding MD Primary Care Provider [phone] Reason for Visit * Reason Comments Image (SCAN) Encounter Details Date Type Department Care Team (Latest Contact Info) Description 10/28/2019 Scan HEALTH INFO SRVCS Scanned, Documents Image [...] ( Contact Info) Description 11/02/2024 8:00 AM DIVORCE ATTORNEY Office Visit [facility] [address] [place] [address] Ella Hodge, [facility] [address] [place] [address] 01/19/2025 11:00 AM CDT Office Visit [facility] Medical Group Pulmonology Specialty Clinic - [address] [place] [address] Stanley Jim MD [address] [address] 06/23/2025 8:20 AM CDT Office Visit [facility] [address] [facility] [place] [address] Ella Hodge FNP [address] [facility] [address] [place], [place] [id number] documented as of this encounter Procedures Procedure Name Priority Date/Time Associated Diagnosis Comments IMAGE GENERIC Routine 11/09/2019 11:50 AM DIVORCE ATTORNEY documented in this encounter Results * IMAGE STUDY (11/09/2019 11:50 AM DIVORCE ATTORNEY) Anatomical Region Laterality Modality Other us Documents Scanned SCANNING Final Result documented in this encounter Visit Diagnoses Not on filedocumented in this encounter Care Teams Heel Curver Relationship Specialty Start Date End Date Ziggy Harding MD [address] [facility] [place] [address] PCP - General FAMILY PRACTICE 09/21/18 11/10/19 documented as of this encounter
--- OUTSIDE RECORDS SUMMARY | 2024-10-24 11:59 | XMS_ITS | Encounter Summary ---
Author Organization [facility] Address [facility]. [place], [place] [address] [place] [address] Care Team Providers Care Au Pair Name Role Phone Ziggy Harding MD Primary Care Provider Demetrio Shore MD Primary Care Pr ovider Unavailable Joon Lewis Unavailable [phone] Cesar Callie DO Unavailable George Osorio MD Unavailable Sergey Ramey Unavailable Jony Pruitt DPM Unavailable Gama Graves MD Unavailable [phone] Encounter Details Date Type Department Care Team (Late st Contact Info) Description 11/01/2019 Abstract [facility] [address] [place], [place] [id number] Justyna Chan V, [facility] [address] [place] [address] Social History Tobacco Use Types Packs/Day Years [...] Contact Info) Description 11/02/2024 8:00 AM CHIEF CUSTOMER OFFICER Office Visit [facility] [address] [facility] [address] Ella Hodge FNP [address] [place] [address] 01/19/2025 11:00 AM CDT Office Visit [facility] Medical Group [facility] [place] [address] [facility] [place] [address] Stanley Jim MD [address] [place] [address] 06/23/2025 8:20 AM CDT Office Visit [facility] [address] [place] [id number] Ella Hodge FNP [address] [place] [id number] documented as of this encounter Visit Diagnoses Not on filedocumented in this encounter Care Teams Au Pair Relationship Specialty Start Date End Date Ziggy Harding MD [address] [facility] [place] [address] PCP - General FAMILY PRACTICE 09/21/18 11/10/19 Demetrio Shore MD [address] [place] [address] PCP - General FAMILY PRACTICE 11/11/19 03/29/23 Joon Lewis PA [address] [place] [address] PHYSICIAN LUNCHROOM MONITOR 05/09/21 Callie Guerrero DO [address] [place] [address] Vending Machine Filler OBGYN 06/14/21 [place] [address] [id number] GASTROENTEROLOGY 06/14/21 Sergey Ramey PA [address] [facility] [place] [address] PHYSICIAN LUNCHROOM MONITOR 06/14/21 Jony Pruitt, DPM [address] [place] [address], [address] [place] [address] Referring Physician PODIATRY/SURGERY 06/14/21 [place] [address] [place] [address] ORTHOPAEDIC SURGERY 06/14/21 documented as of this encounter
--- OUTSIDE RECORDS SUMMARY | 2024-10-24 11:59 | XMS_ITS | Encounter Summary ---
Author Organization [facility] Address [address] [place] [address]. [place], [place] [address] [place] [address] Care Team Providers Care Oil Derrick Operator Name Role Phone Demetrio Shore MD Primary Care Pr ovider Unavailable Reason for Visit * Reason Comments Follow Up Encounter Details Date Type Department Care Team (Late st Contact Info) Description 12/17/2019 8:00 AM GLASS SCIENCE ENGINEER Office Visit [facility] [address] [facility] [place] [address] Demetrio Shore MD Follow Up Social History Tobacco Use Types Packs/Day Years [...] Sign Reading Time Taken Comments Blood Pressure 118/72 12/17/2019 8:02 AM GLASS SCIENCE ENGINEER Pulse 72 12/17/2019 8:02 AM GLASS SCIENCE ENGINEER Temperature 36.9 ??C (98.5 ??F) 12/17/2019 8:02 AM CS T Respiratory Rate 18 12/17/2019 8:02 AM GLASS SCIENCE ENGINEER Oxygen Saturation 97% 12/17/2019 8:02 AM GLASS SCIENCE ENGINEER Inhaled Oxygen Concentration - - Weight 66.8 kg (147 lb 6 oz) 12/17/2019 8:02 AM GLASS SCIENCE ENGINEER Height 152.4 cm (5') 12/17/2019 8:02 AM GLASS SCIENCE ENGINEER Body Mass Index 28.78 12/17/2019 8:02 AM GLASS SCIENCE ENGINEER documented in this encounter Patient Instructions * Patient Instructions* Demetrio Shore MD - 12/17/2019 8:00 AM GLASS SCIENCE ENGINEER Continue Iron supplements. We will recheck your hemoglobin levels in 4 weeks. S SCIENCE ENGINEER documented in this encounter Progress Notes * Demetrio Shore MD - 12/17/2019 8:00 AM CST Love Catherine is a 74-year-old female who presents today alone for evaluation of Chief Complaint Patient presents with ??? Follow Up History of Present Illness: Patient here for follow-up: - previous patient of Dr. Harding - she has a history of hypertension that is controlled on Lisinopril 20 mg PO daily - on pravastatin 20 mg PO qhs - blood pressure well-controlled on medication - recently had a total right hip arthroplasty; healing well; on Eliquis post surgery and will finish this medication in 2 days - was also found to have post-operative anemia and was started on iron as her hgb came down to 9.9 and then went up to 10.5 - not using her walker anymore; now only using the cane as needed after surgery - states she has no issues with walking - no longer taking oxycodone for pain; still on celebrex until December 29 2019 GERD: - takes prescribed ranitidine twice a day - has belching - had a Colonoscopy in 2017- needs another one in 3 years due to polyps (November 2020); Sees Dr. Osorio in [place] for her colonoscopies - has some trouble sleeping since the surgery; states that she will move between her bed and the couch and will sometimes be up and then eat because she can't sleep - could lay on her right side for awhile after surgery Past Medical History: Diagnosis Date ??? Allergic [...] Outpatient Medications Medication Sig Dispense Refill ??? apixaban 2.5 MG tablet Take 2.5 mg by mouth 2 (two) times daily. ??? celecoxib 100 MG capsule Take 100 mg by mouth daily. ??? docusate sodium (STOOL SOFTENER) 100 MG capsule Take 100 mg by mouth 2 (two) times daily. Take 2 capsules BID ??? ferrous sulfate, 65 mg elemental, 325 (65 FE) MG tablet Take 1 tablet (325 mg total) by mouth daily with breakfast. 30 tablet 0 ??? ipratropium 0.03 % nasal spray 2 sprays by Nasal route every 12 (twelve) hours. ??? LISINOPRIL 20 MG tablet TAKE 1 TABLET BY MOUTH EVERY DAY 30 tablet 0 ??? MONTELUKAST 10 MG tablet TAKE 1 TABLET BY MOUTH EVERY DAY 30 tablet 0 ??? omega-3 fatty acid 1000 MG capsule Take 1,000 mg by mouth 2 (two) times daily. ??? PRAVASTATIN 20 MG tablet TAKE 1 TABLET BY MOUTH EVERY DAY 30 tablet 2 ??? probiotic capsule Take 1 capsule by mouth 3 (three) times daily with meals. ??? ranitidine 150 MG tablet Take 1 tablet (150 mg total) by mouth 2 (two) times daily. 180 tablet 1 ??? vitamin D3, cholecalciferol, 75 MCG (3000 UT) Tab tablet Take 1,000 Units by mouth daily. ??? eletxcxlle-yveyszcxqfsas-trlhzaga 50-325-40 MG tablet Take 1 tablet by mouth every 4 (four) hours as needed. No current facility-administered medications for this visit. Allergies: No Known Allergies Review of Systems: An appropriate review of systems was conducted with the pertinent positives and negatives as noted above in the HPI also including: Review of Systems Constitutional: Negative for chills and fever. HENT: Negative for congestion, ear discharge and ear pain. Eyes: Negative for pain, discharge and redness. Respiratory: Negative for cough and shortness of breath. Cardiovascular: Negative for chest pain, palpitations and leg swelling. Gastrointestinal: Negative for abdominal pain, nausea and vomiting. Genitourinary: Negative for dysuria and hematuria. Skin: Negative for itching and rash. Objective / Physical Exam: Filed Vitals: 12/17/19 0802 BP: 118/72 Pulse: 72 Resp: 18 Temp: 98.5 ??F (36.9 ??C) TempSrc: Tympanic SpO2: 97% Weight: 66.8 kg (147 lb 6 oz) Height: 5' (1.524 m) Body mass index is 28.78 kg/m??. Physical Exam Constitutional: She is oriented [...] is no tenderness. Thereis no guarding. Musculoskeletal: Mild swelling of the upper thigh near the incision site, very mild TTP Able to get up on the examination table on her own without difficulty Can flex the thighs without issue Neurological: She is alert and oriented to person, place, and time. Skin: Skin is warm. She is not diaphoretic. Mild erythema of the upper thigh, incision of the upper right thigh healed well, no pus discharge or dehiscence There is very dry skin around the incision Psychiatric: She has a normal mood and affect. Her behavior is normal. Vitals reviewed. Lab / In Office Testing / Radiograph review: No results found for this visit on 12/17/19. Assessment/Plan: 1. Anemia, unspecified type CBC W/DIFF AUTOMATED IRON SAT PANEL (IRON,IBC,%SAT) FERRITIN 2. Mixed hyperlipidemia LIPID PANEL Anemia - will recheck cbc and iron levels - she has two more weeks of iron supplements left to take Mixed HLD - check lipid panel; needs to be done fasting - continue Pravastatin 20 mg PO qhs Followup Plan: Return in about 3 months (around 03/16/2020) for follow-up hypertension. Instructions on the sign/symptoms of worsening problems [...] to the patient's verbalized satisfaction. Patient Instructions Continue Iron supplements. We will recheck your hemoglobin levels in 4 weeks. Demetrio Shore MD Family Medicine [facility], MOB A S SCIENCE ENGINEER documented in this encounter Plan of Treatment Upcoming Encounters Date Type Department Care Team (Late st Contact Info) Description 11/02/2024 8:00 AM GLASS SCIENCE ENGINEER Office Visit [address] [place] [address] Ella Hodge FNP [address] [place] [address] [place] [address] 01/19/2025 11:00 AM CDT Office Visit [facility] - [address] [place] [address] Stanley Jim MD [address] [place] [address] 06/23/2025 8:20 AM CDT Office Visit [address] [place] [address] Ella Hodge FNP [address] [facility] [place] [address] documented as of this encounter Procedures Procedure Name Priority Date/Time Associated Diagnosis Comments LIPID PANEL Routine 01/12/2020 7:50 AM CDT Mixed hyperlipidemia documented in this encounter Results * (ABNORMAL) LIPID PANEL (01/12/2020 7:50 AM CDT) [facility] CHOLESTEROL 198 0 - 200 mg/dL [facility] TRIGLYCERIDES 81 0 - 150 mg/dL [facility] HDL 63(H) 40 - 60 mg/dL [facility] LDL (CALCULATED) 119 10 - 130 mg/dL [facility] CARDIO RISK 3 [facility] Comment: ?CHOLESTEROL LEVELS AND CHD [...] CHD RATIO ARE INVALID IF TRIGLYCERIDES >450 01/12/2020 7:50 AM CDT 01/12/2020 7:50 AM CDT Demetrio Shore MD LABORATORY Final Result Performing Organization Address City/State/[facility] Co de Phone Number [facility] [address] documented in this encounter Visit Diagnoses Diagnosis Anemia, unspecified type- Primary Mixed hyperlipidemia documented in this encounter Care Teams Oil Derrick Operator Relationship Specialty Start Date End Date Demetrio Shore MD PCP - General FAMILY PRACTICE 11/11/19 03/29/23 documented as of this encounter
--- OUTSIDE RECORDS SUMMARY | 2024-10-24 11:59 | XMS_ITS | Encounter Summary ---
Author Organization [facility] Address [facility]. [place], [place] [address] [place] [address] Care Team Providers Care Entrepreneur Name Role Phone Demetrio Shore MD Primary Care Pr ovider Unavailable Joon Lewis Unavailable [phone] Callie Guerrero DO Unavailable [phone] George Osorio MD Unavailable Sergey Ramey Unavailable Jony Pruitt DPArthur Unavailable [phone] Gama Graves MD Unavailable [phone] Encounter Details Date Type Department Care Team (Late st Contact Info) Description 11/26/2019 Abstract [facility] [address] [place] [id number] Justyna Chan V, [facility] [address] [place] [address] Social History Tobacco Use Types Packs/Day Years [...] st Contact Info) Description 11/02/2024 8:00 AM FOLDING MACHINE FEEDER Office Visit [address] [place] [address] Ella Hodge [facility] [address] [facility] [place] [address] 01/19/2025 11:00 AM CDT Office Visit [facility] [address] [place] [address] Stanley Jim MD [address] [place] [address] 06/23/2025 8:20 AM CDT Office Visit [address] [place] [address] Ella Hodge [address] [place] [address] documented as of this encounter Visit Diagnoses Not on filedocumented in this encounter Care Teams Entrepreneur Relationship Specialty Start Date End Date Demetrio Shore MD PCP - General FAMILY PRACTICE 11/11/19 03/29/23 Joon Lewis PA PHYSICIAN BIOINFORMATICS ASSOCIATE 05/09/21 [facility] 06/14/21 [place] [id number] [phone] GASTROENTEROLOGY 06/14/21 Sergey Ramey PA [address] [place] [address] PHYSICIAN BIOINFORMATICS ASSOCIATE 06/14/21 Jony Pruitt, DPM [address] [place] [address], [address] [place] [address] Referring Physician PODIATRY/SURGERY 06/14/21 [place] [address] [place] [address] ORTHOPAEDIC SURGERY 06/14/21 documented as of this encounter
--- OUTSIDE RECORDS SUMMARY | 2024-10-24 11:59 | XMS_ITS | Encounter Summary ---
Author Organization [facility] Address [address] [place] [address]. [place], [place] [address] [place] [address] Care Team Providers Care Rim Fire Priming Operator Name Role Phone Demetrio Shore MD Primary Care Pr ovider Unavailable Encounter Details Date Type Department Care Team (Latest Contact Info) Description 12/22/2019 Travel Social History Tobacco Use Types Packs/Day [...] Contact Info) Description 11/02/2024 8:00 AM CLINICAL DIETICIAN Office Visit [facility] [address] [place] [address] Ella Hodge [place] [address] Healthcare [place] [address] 01/19/2025 11:00 AM CDT Office Visit [facility] - [place] [address] [place] [address] Stanley Jim MD [address] [place] [address] 06/23/2025 8:20 AM CDT Office Visit [facility] [address] [place] [address] Ella Hodge FNP [address] [place] [address] documented as of this encounter Visit Diagnoses Not on filedocumented in this encounter Care Teams Rim Fire Priming Operator Relationship Specialty Start Date End Date Demetrio Shore MD PCP - General FAMILY PRACTICE 11/11/19 03/29/23 documented as of this encounter
--- OUTSIDE RECORDS SUMMARY | 2024-10-24 11:59 | XMS_ITS | Encounter Summary ---
Author Organization [facility] Address [address] [place] [address]. [place], [place] [address] [place] [address] Care Team Providers Care Psychic Reader Name Role Phone Demetrio Shore MD Primary Care Pr ovider Unavailable Encounter Details Date Type Department Care Team (Latest Contact Info) Description 11/17/2019 Scan HEALTH INFO SRVCS Scanned, Documents Social [...] as of this encounter Progress Notes * Glenda Hilario - 11/17/2019 11:59 PM CSTAddended by: GLENDA HILARIO on: 12/06/2019 08:45 AM Modules accepted: SmartSet E CLERK documented in this encounter Plan of Treatment Upcoming Encounters Date Type Department Care Team (Late st Contact Info) Description 11/02/2024 8:00 AM QUOTE CLERK Office Visit [address] [place] [address] Ella Hodge [facility] [address] [facility] [place] [address] 01/19/2025 11:00 AM CDT Office Visit [facility] [address] [place] [address] Stanley Jim MD [address] [place] [address] 06/23/2025 8:20 AM CDT Office Visit [address] [place] [address] Ella Hodge [address] [place] [address] documented as of this encounter Visit Diagnoses Not on filedocumented in this encounter Care Teams Psychic Reader Relationship Specialty Start Date End Date Demetrio Shore MD PCP - General FAMILY PRACTICE 11/11/19 03/29/23 documented as of this encounter
--- OUTSIDE RECORDS SUMMARY | 2024-10-24 11:59 | XMS_ITS | Encounter Summary ---
Author Organization [facility] Address [address] [place] [address]. [place], [place] [address] [place] [address] Care Team Providers Care Transfer Car Operator Drier Name Role Phone Demetrio Shore MD Primary Care Pr ovider Unavailable Encounter Details Date Type Department Care Team (Latest Contact Info) Description 11/29/2019 Scan HEALTH INFO SRVCS Scanned, Documents Social [...] st Contact Info) Description 11/02/2024 8:00 AM CLIENT SUPPORT PROFESSIONAL Office Visit [facility] [address] [place] [address] Ella Hodge, [facility] [address] [place] [address] 01/19/2025 11:00 AM CDT Office Visit [facility] - [place] [address] [place] [address] Stanley Jim MD [address] [place] [address] 06/23/2025 8:20 AM CDT Office Visit [facility] [address] [place] [address] Ella Hodge FNP [address] [place] [address] documented as of this encounter Visit Diagnoses Not on filedocumented in this encounter Care Teams Transfer Car Operator Drier Relationship Specialty Start Date End Date Demetrio Shore MD PCP - General FAMILY PRACTICE 11/11/19 03/29/23 documented as of this encounter
--- OUTSIDE RECORDS SUMMARY | 2024-10-24 11:59 | XMS_ITS | Encounter Summary ---
Author Organization [facility] Address [facility]. [place], [place] [address] [place] [address] Care Team Providers Care Placing Judge Name Role Phone Demetrio Shore MD Primary Care Pr ovider Unavailable Reason for Visit * Reason Comments Follow Up upset stomach, tired , forces herself to eat, sluggish, still not sleeping Encounter Details Date Type Department Care Team (Late st Contact Info) Description 12/22/2019 10:20 AM IT MANAGER Office Visit [facility] [address] [place] [address] Demetrio Shore MD Follow Up (upset stomach, tired, forces herself to eat, sluggish, still not sleeping ) Social History Tobacco Use Types Packs/Day [...] Sign Reading Time Taken Comments Blood Pressure 132/72 12/22/2019 10:17 AM IT MANAGER Pulse 99 12/22/2019 10:17 AM IT MANAGER Temperature 37.1 ??C (98.7 ??F) 12/22/2019 10:[address] Respiratory Rate 18 12/22/2019 10:17 AM IT MANAGER Oxygen Saturation 98% 12/22/2019 10:17 AM IT MANAGER Inhaled Oxygen Concentration - - Weight 66.7 kg (147 lb 1 oz) 12/22/2019 10:17 AM IT MANAGER Height 152.4 cm (5') 12/22/2019 10:17 AM IT MANAGER Body Mass Index 28.72 12/22/2019 10:17 AM IT MANAGER documented in this encounter Patient Instructions * Patient Instructions* Demetrio Shore MD - 12/22/2019 10:20 AM IT MANAGER Images from the original note were not included. Patient Education Patient Education Dyspepsia Discharge Instructions About this topic You may feel a burning pain in your upper belly during or after a meal. This is called dyspepsia. The pain may come and go. Other times, the pain may be present most of the time. You may have burping, belching, heartburn, or throw up. Some people have a feeling of a full belly or of being bloated. Sometimes, doctors use drugs or suggest changes in lifestyle. Other times, diet changes or surgery is needed. What care is needed at home? ?? Ask your doctor what you need to do when you go home. Make sure you ask questions if you do not understand what the doctor says. This way you will know what you need to do. ?? Chew your food fully. Avoid swallowing your food without chewing it very well. ?? Write down notes on what you eat, when you eat, and how you feel. Note the foods that may worsenyour signs and avoid them in the future. ?? Avoid stress. ?? Avoid belts and clothing that are too tight. ?? Eat small meals more often. Do not skip meals. Do not eat large meals to make up for missed meals. ?? Limit beer, wine, and mixed drinks (alcohol). ?? Do not smoke. ?? Avoid sour, spicy, and fatty foods. ?? Avoid drinks with caffeine. ?? Raise the head of your bed up on blocks to avoid reflux. ?? Maintain a healthy body weight. Try to exercise and lose weight if you are overweight. What follow-up care is needed? Your doctor may ask you to make visits to the office to check on your progress. Be sure to keep these visits. What drugs may be needed? The doctor may order drugs to: ?? Help with pain ?? Calm heartburn ?? Prevent reflux ?? Treat other signs Will physical activity be limited? ?? Physical activities may be limited if you are in pain. Ask your doctor about the right amount ofactivity for you. ?? You should exercise regularly unless told otherwise by your doctor. What problems could happen? ?? Scarring of the esophagus ?? Irritation or damage to the digestive tract lining ?? Bleeding in your stomach or esophagus ?? Damage to the valves that fill or empty your stomach ?? Long-term indigestion What can be done to prevent this health problem? ?? Avoid eating too much. Try to eat frequent small meals. ?? Avoid eating right before going to bed. ?? If you are taking drugs like ibuprofen (Advil, Motrin) for swelling and pain, ask your doctor ifthere is some other treatment choice. These are nonsteroidal anti-inflammatory drugs (NSAIDS). Theycan sometimes cause dyspepsia. ?? Weight loss can help, if you are overweight. When do I need to call the doctor? ?? Trouble breathing ?? Problem or pain when swallowing ?? More throwing up or throwing up fluid that looks like blood or coffee grounds ?? Pain in the neck, chest, or back ?? Very bad heartburn that lasts for a long time ?? Very bad belly pain ?? Blood in your stools or stool looks black and tar-like ?? Too much weight loss or not wanting to eat ?? Not able to drink fluids ?? You are not feeling better in 2 to 3 days or you are feeling worse Teach Back: Helping You Understand The Teach Back Method helps you understand the information we are giving you. After you talk with the staff, tell them in your own words what you learned. This helps to make sure the staff has described each thing clearly. It also helps to explain things that may have been confusing. Before going home, make sure you can do these: ?? I can tell you about my condition. ?? I can tell you what changes I need to make with my diet or drugs. ?? I can tell you what I will do if I have very bad belly pain or very bad heartburn that lasts fora long time. Where can I learn more? [employer] https://familydoctor.org/condition/indigestion-dyspepsia/ National Digestive Disease Information Clearinghouse https://www.niddk.nih.gov/health-information/digestive-diseases/indigestion-dysp epsia NHS Choices https://www.nhs.uk/conditions/indigestion/ Last Reviewed Date 2019-06-03 Consumer Information Use and Disclaimer This information is not specific medical advice and does not replace information you receive from your health care provider. This is only a brief summary of general information. It does NOT include all information about conditions, illnesses, injuries, tests, procedures, treatments, therapies, discharge instructions or life-style choices that may apply to you. You must talk with your health care provider for complete information about your health and treatment options. This information should not be used to decide whether or not to accept your health care provider???s advice, instructions or recommendations. Only your health care provider has the knowledge and training to provide advice that is right for you. Copyright Copyright ?? 2019 [employer]. and its affiliates and/or licensors. All rights reserved. MANAGER documented in this encounter Progress Notes * Demetrio Shore MD - 12/22/2019 10:20 AM CST Love Catherine is a 74-year-old female who presents today accompanied by for evaluation of Chief Complaint Patient presents with ??? Follow Up upset stomach, tired, forces herself to eat, sluggish, still not sleeping History of Present Illness: Here with complaints of an upset stomach: - felt very tired last week - stomach feels queezy - forcing herself to eat, not having an appetite - had spaghetti from a restaurant last week and started to feel a bit sick - feels a bit better today since last week, but still doesn't have much of an appetite - no vomiting - no fever and no diarrhea - had a bowel movement this morning; strained a bit this morning - feels queezy in the epigastric region - taking Zantac one pill a day now and is belching more - has completed Eliquis treatment after hip replacement Past Medical History: Diagnosis Date ??? Allergic [...] Outpatient Medications Medication Sig Dispense Refill ??? hqamwbznwv-sivrpmszixpga-xmxixacc 50-325-40 MG tablet Take 1 tablet by mouth every 4 (four) hours as needed. ??? celecoxib 100 MG capsule Take 100 mg by mouth daily. ??? docusate sodium (STOOL SOFTENER) 100 MG capsule Take 100 mg by mouth 2 (two) times daily. Take 2 capsules BID ??? famotidine 20 MG tablet Take 1 tablet (20 mg total) by mouth 2 (two) times daily. 60 tablet 1 ??? ferrous sulfate, 65 mg elemental, 325 [...] for chest pain, palpitations and leg swelling. Genitourinary: Negative for dysuria and hematuria. Skin: Negative for itching and rash. Objective / Physical Exam: Filed Vitals: 12/22/19 1017 BP: 132/72 Pulse: 99 Resp: 18 Temp: 98.7 ??F (37.1 ??C) SpO2: 98% Weight: 66.7 kg (147 lb 1 oz) Height: 5' (1.524 m) Body mass index is 28.72 kg/m??. Physical Exam Constitutional: She is oriented [...] no guarding. Musculoskeletal: Normal range of motion. Neurological: She is alert and oriented to person, place, and time. Skin: Skin is warm. She is not diaphoretic. No erythema. Psychiatric: She has a normal mood and affect. Her behavior is normal. Vitals reviewed. Lab / In Office Testing / Radiograph review: No results found for this visit on 12/22/19. Assessment/Plan: 1. Dyspepsia famotidine 20 MG tablet 2. Anemia, unspecified type - started to feel like she was belching more since decreasing the frequency of Zantac - will switch from Zantac to Pepcid 20 mg PO BID - will also do labs today for CBC, iron panel and ferritin because she has been feeling tired; could be due to poor sleep, however was also anemic post-op Followup Plan: Return if symptoms worsen or [...] necessary to address these worsening conditions. The and patient verbalized understanding and agreed to the plan. All questions answered to the patient's verbalized satisfaction. Demetrio Shore MD Family Medicine [facility], MOB A MANAGER documented in this encounter Plan of Treatment Upcoming Encounters Date Type Department Care Team (Late st Contact Info) Description 11/02/2024 8:00 AM IT MANAGER Office Visit [address] [place] [address] Ella Hodge FNP [address] [place] [address] [place] [address] 01/19/2025 11:00 AM CDT Office Visit [facility] [address] [place] [address] Stanley Jim MD [address] [place] [address] 06/23/2025 8:20 AM CDT Office Visit [address] [place] [address] Ella Hodge FNP [address] [place] [address] [place] [address] documented as of this encounter Visit Diagnoses Diagnosis Dyspepsia- Primary Dyspepsia and other specified disorders of function of stomach Anemia, unspecified type documented in this encounter Care Teams Placing Judge Relationship Specialty Start Date End Date Demetrio Shore MD PCP - General FAMILY PRACTICE 11/11/19 03/29/23 documented as of this encounter
--- OUTSIDE RECORDS SUMMARY | 2024-10-24 11:59 | XMS_ITS | Encounter Summary ---
Author Organization [facility] Address [address] [place] [address]. [place], [place] [address] [place] [address] Care Team Providers Care Newspaper Writer Name Role Phone Demetrio Shore MD Primary Care Pr ovider Unavailable Encounter Details Date Type Department Care Team (Latest Contact Info) Description 12/17/2019 Travel Social History Tobacco Use Types Packs/Day [...] st Contact Info) Description 11/02/2024 8:00 AM QUALITY CONTROL ASSISTANT Office Visit [facility] [address] [place] [address] Ella Hodge [place] [address] [address] [place] [address] 01/19/2025 11:00 AM CDT Office Visit [facility] [place] [address] [place] [address] Stanley Jim MD [address] [place] [address] 06/23/2025 8:20 AM CDT Office Visit [facility] [address] [place] [address] Ella Hodge FNP [address] [place] [address] documented as of this encounter Visit Diagnoses Not on filedocumented in this encounter Care Teams Newspaper Writer Relationship Specialty Start Date End Date Demetrio Shore MD PCP - General FAMILY PRACTICE 11/11/19 03/29/23 documented as of this encounter
--- OUTSIDE RECORDS SUMMARY | 2024-10-24 11:59 | XMS_ITS | Encounter Summary ---
Author Organization [facility] Address [address] [place] [address]. [place], [place] [address] [place] [address] Care Team Providers Care Corporate Receptionist Name Role Phone Demetrio Shore MD Primary Care Pr ovider Unavailable Reason for Visit * Reason Comments Lab (SCAN) Encounter Details Date Type Department Care Team (Latest Contact Info) Description 11/19/2019 Scan HEALTH INFO SRVCS Scanned, Documents Lab (SCAN) Social History Tobacco Use Types [...] st Contact Info) Description 11/02/2024 8:00 AM FINISHER SCREWDOWN Office Visit [facility] [address] [place] [address] Ella Hodge, [facility] [address] [place] [address] 01/19/2025 11:00 AM CDT Office Visit [facility] - [address] [place] [address] Stanley Jim MD [address] [place] [address] 06/23/2025 8:20 AM CDT Office Visit [facility] [address] [facility] [place] [address] Ella Hodge FNP [address] [place] [address] documented as of this encounter Procedures Procedure Name Priority Date/Time Associated Diagnosis Comments OUTSIDE LAB (SCAN ORDER) Routine 11/19/2019 12:00 AM FINISHER SCREWDOWN OUTSIDE LAB (SCAN ORDER) Routine 11/19/2019 12:00 AM FINISHER SCREWDOWN OUTSIDE LAB (SCAN ORDER) Routine 11/19/2019 12:00 AM FINISHER SCREWDOWN documented in this encounter Results * OUTSIDE LAB (11/19/2019 12:00 AM FINISHER SCREWDOWN) 11/19/2019 us Documents Scanned SCANNING Edited Result - Final Performing Organization Address [facility] de Phone Number [facility] ONBASE * OUTSIDE LAB (11/19/2019 12:00 AM FINISHER SCREWDOWN) 11/19/2019 us Documents Scanned SCANNING Edited Result - Final Performing Organization Address [facility] Co de Phone Number [facility] ONBASE * OUTSIDE LAB (11/19/2019 12:00 AM FINISHER SCREWDOWN) 11/19/2019 us Documents Scanned SCANNING Edited Result - Final Performing Organization Address [facility] de Phone Number [facility] ONBASE documented in this encounter Visit Diagnoses Not on filedocumented in this encounter Care Teams Corporate Receptionist Relationship Specialty Start Date End Date Demetrio Shore MD PCP - General FAMILY PRACTICE 11/11/19 03/29/23 documented as of this encounter
--- OUTSIDE RECORDS SUMMARY | 2024-10-24 11:59 | XMS_ITS | Encounter Summary ---
Author Organization [facility] Address [facility], [facility]. [place], [place] [address] [place] [address] Care Team Providers Care Network Technical Analyst Name Role Phone Demetrio Shore MD Primary Care Pr ovider Unavailable Joon Lewis Unavailable [phone] Callie Guerrero DO Unavailable [phone] George Osorio MD Unavailable Sergey Ramey Unavailable Jony Pruitt DPM Unavailable [phone] Gama Graves MD Unavailable [phone] Encounter Details Date Type Department Care Team (Late st Contact Info) Description 12/08/2019 Abstract [facility] [address] [place] [address] Demetrio Shore MD Social History Tobacco Use [...] st Contact Info) Description 11/02/2024 8:00 AM SPECIALIST EMPLOYEE LABOR RELATIONS Office Visit [address] [place] [address] Ella Hodge [address] [place] [address] 01/19/2025 11:00 AM CDT Office Visit [facility] [address] [place] [address] Stanley Jim MD [address] [place] [address] 06/23/2025 8:20 AM CDT Office Visit [address] [place] [address] Ella Hodge [address] [place] [address] documented as of this encounter Visit Diagnoses Not on filedocumented in this encounter Care Teams Network Technical Analyst Relationship Specialty Start Date End Date Demetrio Shore MD PCP - General FAMILY PRACTICE 11/11/19 03/29/23 Joon Lewis PA PHYSICIAN STRATEGIC INTELLIGENCE OFFICER 05/09/21 Callie Guerrero DO Heavy Forger OBGYN 06/14/21 [place] [address] Marco A Wiseman [address] [address] GASTROENTEROLOGY 06/14/21 Sergey Ramey PA [address] [place] [address] PHYSICIAN STRATEGIC INTELLIGENCE OFFICER 06/14/21 Jony Pruitt DPM [address] [place] [address], [address] [place] [address] Referring Physician PODIATRY/SURGERY 06/14/21 [place] [address] [place] [address] ORTHOPAEDIC SURGERY 06/14/21 documented as of this encounter
--- OUTSIDE RECORDS SUMMARY | 2024-10-24 11:59 | XMS_ITS | Encounter Summary ---
Author Organization [facility] Address [address] [place] [address]. [place], [place] [address] [place] [address] Care Team Providers Care Defense Travel Administrator Name Role Phone Demetrio Shore MD Primary Care Pr ovider Unavailable Reason for Visit * Reason Onset Date Comments Consult 11/30/2019 Encounter Details Date Type Department Care Team (Late st Contact Info) Description 11/30/2019 Telephone [facility] [address] [place] [address] Justyna Chan V, [facility] [address] [place] [phone] Consult Social History Tobacco Use Types Packs/Day Years [...] Progress Notes * Julia العراقي LPN - 11/30/2019 10:46 AM CST Pt Just wanted to go over recent lab one more time with nurse. COMMUNICATIONS FIELD ENGINEER * Awilda Wooten - 11/30/2019 9:04 AM CST Patient left voicemail returning Julia's call, please call patient back [phone]. COMMUNICATIONS FIELD ENGINEER documented in this encounter Plan of Treatment Upcoming Encounters Date Type Department Care Team (Late st Contact Info) Description 11/02/2024 8:00 AM TELECOMMUNICATIONS FIELD ENGINEER Office Visit [address] [place] [address] Ella Hodge [address] [place] [address] 01/19/2025 11:00 AM CDT Office Visit [facility] [address] [place] [address] Stanley Jmi MD [address] [place] [address] 06/23/2025 8:20 AM CDT Office Visit [address] [place] [address] Ella Hodge [address] [place] [address] documented as of this encounter Visit Diagnoses Not on filedocumented in this encounter Care Teams Defense Travel Administrator Relationship Specialty Start Date End Date Demetrio Shore MD PCP - General FAMILY PRACTICE 11/11/19 03/29/23 documented as of this encounter
--- OUTSIDE RECORDS SUMMARY | 2024-10-24 11:59 | XMS_ITS | Encounter Summary ---
Author Organization [facility] Address [address] [facility]. [place], [place] [id number] [place] [address] Care Team Providers Care Fire Extinguisher Inspector Name Role Phone Ziggy Harding MD Primary Care Provider Reason for Visit * Reason Comments Pre-Op Exam Pt to have right hip replacement on 11/17/2019. Pt has had all pre op testing done on 10/29/2019 at [place] and had seen Cardio Dr Shane 10/29/2019. Pt just needs clearance for surgery from PCP. Encounter Details Date Type Department Care Team (Late st Contact Info) Description 11/05/2019 9:40 AM SCHOOL SECRETARY Office Visit [facility] [address] [place], [place] [id number] Justyna Chan V, [facility] [address] [place] [address] Pre-Op Exam (Pt to have right hip replacement on 11/17/2019. Pt has had all pre op testing done on 10/29/2019 at [place] and had seen Cardio Dr Shane 10/29/2019. Pt just needs clearance for surgery from PCP.) Social History Tobacco Use Types Packs/Day Years Used Date Smoking Tobacco: Never Smokeless Tobacco: Never Alcohol Use Standard Drinks/Week Comments No 0 (1 standard drink = 0.6 oz pur e alcohol) AUDIT-C Answer Date Recorded Frequency of Alcohol Consumption Never 10/14/2019 Average Number of Drinks Not on file 12/19/2 019 Frequency of Binge Drinking Not on [...] Sign Reading Time Taken Comments Blood Pressure 140/88 11/05/2019 9:52 AM SCHOOL SECRETARY Pulse 75 11/05/2019 9:52 AM SCHOOL SECRETARY Temperature 36.9 ??C (98.5 ??F) 11/05/2019 9:47 AM CS T Respiratory Rate 18 11/05/2019 9:47 AM SCHOOL SECRETARY Oxygen Saturation 98% 11/05/2019 9:47 AM SCHOOL SECRETARY Inhaled Oxygen Concentration - - Weight 67.7 kg (149 lb 4 oz) 11/05/2019 9:47 AM SCHOOL SECRETARY Height 152.4 cm (5') 11/05/2019 9:47 AM SCHOOL SECRETARY Body Mass Index 29.15 11/05/2019 9:47 AM SCHOOL SECRETARY documented in this encounter Patient Instructions * Patient Instructions* JERROD Rosa - 11/05/2019 9:40 AM SCHOOL SECRETARY Labs, EKG and cardiac clearance all reviewed and normal. Physical exam also within normal limits. Blood pressure is well controlled. You are cleared for right hip surgery with Dr. Graves on 11/17/2019 Please have your BMP drawn in 6 weeks. This is to check kidney function. Make sure you are well hydrated before hand. Limit sodium. This will help with blood pressure and lower extremity swelling. Elevate your feet when you are able. Return for any new or worsening symptoms. You may go online to [email or web address] to sign up to view your health records and communicate with us by e-mail. It was our pleasure caring for you today. Our practice is committed to providing you the very best in health care. We want to hear from you! If you receive a survey, please fill out and send back. Your feedback is anonymous and helps us improve patient experience for you and others in the communitywe serve. OL SECRETARY documented in this encounter Progress Notes * Justyna Stewart V, ANIMAL CHIROPRACTOR-BC - 11/05/2019 9:40 AM CST Reason for Visit: Pre-Op Exam (Pt to have right hip replacement on 11/17/2019. Pt has had all pre op testing done on 10/29/2019 at [place] and had seen Cardio Dr Shane 10/29/2019. Pt just needs clearance for surgery from PCP.) History of Present Illness: 73-year-old female, patient Dr. Harding, presents for preoperative clearance for right hip surgery with Dr. Graves on 11/17/2019. Patient has already had her preop labs, EKG and cardiology appointment which were all normal. Dr. Graves's office did fax us a copy of those today which I have reviewed. Patient reports that she has been given instructions by Dr. Graves to stop her meloxicam 1 week before surgery. Currently she is taking 7.5 mg at bedtime and Tylenol arthritis every morning. She plans to replace the meloxicam with Tylenol arthritis at bedtime. She does have some chronic bilateral lower extremity edema which she notices more if she eats too much sodium. She has been trying to pay attention to her salt intake and has been cutting back. She was drinking V8 juice and eating a lot more chips. She is also by a low sodium canned goods instead of regular. She denies headaches, palpitations, chest pain, shortness of breath, lightheadedness, dizziness or fainting spells. She reports she has never had general anesthesia. After surgery her daughter plans to come stay with her and her will also be there to help her. She continues on lisinopril 20 mg daily. We increased to this dose on 10/14/2019. She is toleratingwell. Her repeat BUN 24 and creatinine 0.9. Previous on 09/24/19 was 16 and 0.7. We will repeat herBUN and creatinine in 6 weeks. ROS: Review of Systems Constitutional: Negative for [...] dysuria, frequency and urgency. Musculoskeletal: Positive for joint pain (chronic right hip). Negative for myalgias. Skin: Negative for rash. Neurological: Negative for dizziness. Endo/Heme/Allergies: Negative. Psychiatric/Behavioral: Negative for depression. The patient is not nervous/anxious. Medications: Current Outpatient Medications Medication Sig Dispense Refill ??? wcjdwzofho-elyhkdfgaaatm-ggekayxj 50-325-40 MG tablet Take 1 tablet by mouth every 4 (four) hours as needed. ??? ipratropium 0.03 % nasal spray 2 sprays by Nasal route every 12 (twelve) hours. ??? lisinopril 20 MG tablet Take 1 tablet (20 mg total) by mouth daily. 30 tablet 0 ??? meloxicam 7.5 MG tablet Take 1 tablet (7.5 mg total) by mouth daily as needed for Pain. 30 tablet 0 ??? MONTELUKAST 10 MG tablet TAKE 1 TABLET BY MOUTH EVERY DAY 30 tablet 0 ??? omega-3 fatty acid 1000 MG capsule Take 1,000 mg by mouth 2 (two) times daily. ??? Polyethyl Glycol-Propyl Glycol (SYSTANE OP) ??? PRAVASTATIN 20 MG tablet TAKE 1 TABLET BY MOUTH EVERY DAY 30 tablet 0 ??? probiotic capsule Take 1 [...] Allergic rhinitis ??? Heartburn ??? Hip pain Past Surgical History: Procedure Laterality Date ??? BREAST BIOPSY ??? COLONOSCOPY Social History Tobacco Use ??? Smoking status: Never Smoker ??? Smokeless tobacco: Never Used Substance Use Topics ??? Alcohol use: No Frequency: Never ??? Drug use: No Family History Problem Relation Name Age of Onset ??? Other (TIA) Mother ??? Colon Cancer Brother ??? Migraines Daughter Family Status Relation Name Status ??? Mother ??? Brother ??? Father ??? Daughter (Not Specified) ??? Brother Alive Physical Exam: Physical Exam Constitutional: She is oriented to person, place, and time. She appears well- developed and well-nourished. She is active. No distress. HENT: Head: Normocephalic and atraumatic. Right Ear: External ear normal. Left Ear: External ear normal. Nose: Nose normal. Mouth/Throat: Oropharynx is clear and moist. No oropharyngeal exudate. Eyes: Conjunctivae and EOM are normal. Pupils are equal, round, and reactive to light. Right eye exhibits no discharge. Left eye exhibits no discharge. Neck: Normal range of motion. Neck supple. No JVD present. No tracheal deviation present. No thyromegaly present. Cardiovascular: Normal rate, regular rhythm, normal heart sounds and intact distal pulses. Exam reveals no gallop and no friction rub. No murmur heard. Pulmonary/Chest: Effort normal and breath sounds normal. No stridor. No respiratory distress. She has no wheezes. She has no rhonchi. She has no rales. She exhibits no tenderness and no retraction. Abdominal: Soft. Bowel sounds are normal. She exhibits no distension and no mass. There is no tenderness. There is no rebound and no guarding. No hernia. Musculoskeletal: Normal range of motion. She exhibits edema (trace bilat lower ext pitting edema). She exhibits no tenderness or deformity. Lymphadenopathy: She has no cervical adenopathy. Neurological: She is alert and oriented to person, place, and time. She has normal strength. She displays normal reflexes. No cranial nerve deficit or sensory deficit. She exhibits normal muscle tone. Coordination normal. Skin: Skin is warm and dry. Capillary refill takes less than 2 seconds. No petechiae, no purpura and no rash noted. She is not diaphoretic. No cyanosis or erythema. No pallor. Psychiatric: She has a normal mood and affect. Her behavior is normal. Judgment and thought contentnormal. Nursing note and vitals reviewed. Filed Vitals: 11/05/19 0947 11/05/19 0952 BP: 140/88 140/88 Pulse: 75 75 Resp: 18 Temp: 98.5 ??F (36.9 ??C) SpO2: 98% Weight: 67.7 kg (149 lb 4 oz) Height: 5' (1.524 m) Body mass index is 29.15 kg/m??. No image results found. Diagnoses/Impression: 1. Encounter for pre-operative examination 2. Primary osteoarthritis of right hip 3. Benign essential hypertension Recommendation/Plan: Labs, EKG and cardiac clearance all reviewed and normal. Physical exam also within normal limits. Blood pressure is well controlled. You are cleared for right hip surgery with Dr. Graves on 11/17/2019 Please have your BMP drawn in 6 weeks. This is to check kidney function. Make sure you are well hydrated before hand. Limit sodium. This will help with blood pressure and lower extremity swelling. Elevate your feet when you are able. Return for any new or worsening symptoms. You may go online to [email or web address] to sign up to view your health records and communicate with us by e-mail. It was our pleasure caring for you today. Our practice is committed to providing you the very best in health care. We want to hear from you! If you receive a survey, please fill out and send back. Your feedback is anonymous and helps us improve patient experience for you and others in the communitywe serve. No orders of the defined types were placed in this encounter. JERROD Anaya Cosigned by Carrie Tompkins DO at 11/05/2019 3:12 PM SCHOOL SECRETARY OL SECRETARY OL SECRETARY documented in this encounter Plan of Treatment Upcoming Encounters Date Type Department Care Team (Late st Contact Info) Description 11/02/2024 8:00 AM SCHOOL SECRETARY Office Visit [facility] [address] [place] [place] [address] Ella Hodge FNP [address] [place] [address] [place] [address] 01/19/2025 11:00 AM CDT Office Visit [facility] - [address] [place] [address] Stanley Jim MD [address] [place] [address] [address] [place] [address] 06/23/2025 8:20 AM CDT Office Visit [facility] [address] [place] [address] Ella Hodge, [facility] [address] [place], [place] [phone] documented as of this encounter Visit Diagnoses Diagnosis Encounter for pre-operative examination- Primary Primary osteoarthritis of right hip Primary localized osteoarthrosis, pelvic region and thigh Benign essential hypertension Essential hypertension, benign documented in this encounter Care Teams Fire Extinguisher Inspector Relationship Specialty Start Date End Date Ziggy Hardnig MD [address] [place] [address] [place] [address] PCP - General FAMILY PRACTICE 09/21/18 11/10/19 documented as of this encounter
--- OUTSIDE RECORDS SUMMARY | 2024-10-24 11:59 | XMS_ITS | Encounter Summary ---
Author Organization [facility] Address [address] [place] [address]. [place], [place] [id number] [place] [address] Care Team Providers Care Lpn Home Health Name Role Phone Demetrio Shore MD Primary Care Pr ovider Unavailable Encounter Details Date Type Department Care Team (Latest Contact Info) Description 11/18/2019 Scan HEALTH INFO SRVCS Scanned, Documents Social [...] Contact Info) Description 11/02/2024 8:00 AM SENIOR QUALITY CONTROL INSPECTOR Office Visit [facility] [address] [place] [address] Ella Hodge, [facility] [address] [place] [address] 01/19/2025 11:00 AM CDT Office Visit [facility] Medical [facility] - [place] [address] [facility] [place] [address] Stanley Jim MD [address] [place] [address] 06/23/2025 8:20 AM CDT Office Visit [facility] [address] [address] Ella Hodge FNP [address] [place] [address] documented as of this encounter Visit Diagnoses Not on filedocumented in this encounter Care Teams Lpn Home Health Relationship Specialty Start Date End Date Demetrio Shore MD PCP - General FAMILY PRACTICE 11/11/19 03/29/23 documented as of this encounter
--- OUTSIDE RECORDS SUMMARY | 2024-10-24 11:59 | XMS_ITS | Encounter Summary ---
Author Organization [facility] Address [address] [place] [address]. [place], [place] [address] [place] [address] Care Team Providers Care Garden Implement Mechanic Name Role Phone Ziggy Harding MD Primary Care Provider Encounter Details Date Type Department Care Team (Late st Contact Info) Description 11/10/2019 Orders Only [address] [address] Edith Trinidad RN Social History Tobacco Use [...] st Contact Info) Description 11/02/2024 8:00 AM MANAGEMENT ANALYST Office Visit [place] [address] [place] [address] Ella Hodge, [facility] [address] [place] [address] 01/19/2025 11:00 AM CDT Office Visit [facility] - [place] [address] [facility] [address] Stanley Jim MD [address] [place] [address] 06/23/2025 8:20 AM CDT Office Visit [facility] [address] [facility] [address] [place], [place] [id number] Ella Hodge [facility] [address] [facility] [place] [address] documented as of this encounter Visit Diagnoses Diagnosis Hyperlipidemia Other and unspecified hyperlipidemia documented in this encounter Care Teams Garden Implement Mechanic Relationship Specialty Start Date End Date Ziggy Harding MD [address] [facility] [address] [place], [place] [phone] PCP - General FAMILY PRACTICE 09/21/18 11/10/19 documented as of this encounter
--- OUTSIDE RECORDS SUMMARY | 2024-10-24 11:59 | XMS_ITS | Encounter Summary ---
Author Organization [facility] Address [facility] [facility]. [place], [place] [address] [place] [address] Care Team Providers Care Lapping Machine Tender Name Role Phone Demetrio Shore MD Primary Care Pr ovider Unavailable Reason for Visit * Reason Comments Surgery Follow Up Hip surgery 11/17/19 Diarrhea loose stools since t aking stool softener 2 capsules BID Abstract Labs Needs F/U labs for H /H and BMP Medication Question Pravastatin-on too l zoran? Encounter Details Date Type Department Care Team (Late st Contact Info) Description 11/26/2019 1:00 PM AQUACULTURIST Office Visit [address] [place] [address] Demetrio Shroe MD Surgery Follow Up (Hip surgery 11/17/19); Diarrhea (loose stools since taking stool softener 2 capsules BID ); Abstract Labs (Needs F/U labs for H/H and BMP ); Medication Question (Pravastatin-on too long? ) Social History Tobacco Use Types Packs/Day [...] Sign Reading Time Taken Comments Blood Pressure 124/72 11/26/2019 1:15 PM AQUACULTURIST Pulse 72 11/26/2019 1:15 PM AQUACULTURIST Temperature 36.9 ??C (98.5 ??F) 11/26/2019 1:15 PM CS T Respiratory Rate 16 11/26/2019 1:15 PM AQUACULTURIST Oxygen Saturation - - Inhaled Oxygen Concentration - - Weight 62.1 kg (137 lb) 11/26/2019 1:15 PM AQUACULTURIST Height - - Body Mass Index 26.76 11/10/2019 11:06 AM AQUACULTURIST documented in this encounter Patient Instructions * Patient Instructions* Demetrio Shore MD - 11/26/2019 1:00 PM AQUACULTURIST Please have your lab done at the hospital on a Friday if you would like to pay the out of pocketcost. This has to be done fasting. CULTURIST documented in this encounter Progress Notes * Demetrio Shore MD - 11/26/2019 1:00 PM CSTAddended by: DEMETRIO SHORE on: 11/29/2019 07:12 AM Modules accepted: Orders CULTURIST * Demetrio Shore MD - 11/26/2019 1:00 PM CST Images from the original note were not included. Love Catherine is a 74-year-old female who presents today alone for evaluation of Chief Complaint Patient presents with ??? Surgery Follow Up Hip surgery 11/17/19 ??? Diarrhea loose stools since taking stool softener 2 capsules BID ??? Abstract Labs Needs F/U labs for H/H and BMP ??? Medication Question Pravastatin-on too long? History of Present Illness: Patient is here for follow-up today after having had a right total hip arthroplasty: -Her surgery was on November 17, 2019 at [facility]; discharged on 11/19/2019 -Previous xrays showed severe arthritis of the right hip with early protrusion, wqis-rk-mubo type 2and that she required a total hip replacement -Physical therapy - surgeon said she doesn't need it right now -doing exercises at home that the surgeon taught her -follow-up appointment with her surgeon on 11/29/2019 -using a walker all the time to ambulate -taking oxycodone 5 mg ; takes it at bedtime -taking two stool softeners in the morning and 2 in the evening -tylenol 1000 mg -she will see her surgeon for a follow-up appointment on 11/29/2019 -no recent falls -incision is healing well; no pus discharge or bleeding; has it covered with gauze Past Medical History: Diagnosis Date ??? Allergic [...] daily with breakfast. 30 tablet 0 ??? oxyCODONE-acetaminophen 5-325 MG tablet Take 1 tablet by mouth every 4 (four) hours as needed for Pain. Take 1/2 tablet po every 4 hours prn ??? lqdixthlci-xxltyqdsgbdrq-icbtdxdb 50-325-40 MG tablet Take 1 tablet by [...] by mouth daily. 30 tablet 0 ??? probiotic capsule Take [...] vomiting. Genitourinary: Negative for dysuria and hematuria. Musculoskeletal: Negative for joint pain. Skin: Negative for itching and rash. Neurological: Negative for tingling. Objective / Physical Exam: Filed Vitals: 11/26/19 1315 BP: 124/72 Pulse: 72 Resp: 16 Temp: 98.5 ??F (36.9 ??C) TempSrc: Temporal Weight: 62.1 kg (137 lb) Body mass index is 26.76 kg/m??. Physical Exam Constitutional: She is oriented to person, place, and time. She appears well- developed and well-nourished. No distress. HENT: Head: Normocephalic and atraumatic. Right Ear: External ear normal. Left Ear: External ear normal. Mouth/Throat: Oropharynx is clear and moist. Eyes: [...] no guarding. Musculoskeletal: Normal range of motion. Some edema around the right knee Neurological: She is alert and oriented to person, place, and time. Skin: Skin is warm. She is not diaphoretic. No erythema. Psychiatric: She has a normal mood and affect. Her behavior is normal. Vitals reviewed. Lab / In Office Testing / Radiograph review: Results for orders placed or performed in visit on 11/26/19 HEMOGLOBIN AND HEMATOCRIT Result Value Ref Range HGB 9.9 (L) 12.0 - 16.0 g/dL HCT 31.4 (L) 36.0 - 46.0 % Assessment/Plan: 1. Encounter for examination following treatment at hospital 2. History of total right hip arthroplasty 3. Postoperative anemia HEMOGLOBIN AND HEMATOCRIT ferrous sulfate, 65 mg elemental, 325 (65 FE) MG tablet 4. Hyponatremia 5. Hyperlipidemia, unspecified hyperlipidemia type LIPID PANEL -Patient recently had a right total hip arthroplasty on November 17, 2019 -She had severe arthritis and required a total hip replacement -She was found to have hyponatremia and postop anemia on her labs in the hospital; can repeat theselabs to see if they are improving -Na has improved; she is no longer hyponatremic -Hgb has decreased a bit to 9.9; can start iron supplements -lipid panel pending; needs to be fasting Followup Plan: Return in about 1 month (around 12/25/2019) for follow-up. Instructions on the sign/symptoms of worsening problems were given and verbal acknowledgement of understanding was noted. Those present were instructed to call the office during business hours or go to convenient care when the office is closed. If it's an emergency then go to an ER if necessary to address these worsening conditions. The patient and her verbalized understanding and agreed to the plan. All questions answered to the patient's verbalized satisfaction. Patient Instructions Please have your lab done at the hospital on a Friday if you would like to pay the out of pocketcost. This has to be done fasting. Demetrio Shore MD Family Medicine [facility], MOB A CULTURIST CULTURIST * Chiqui Michel RN - 11/26/2019 1:00 PM CST Patient notified. She is not currently taking any iron supplements. CULTURIST * Chiqui Michel RN - 11/26/2019 1:00 PM CST Patient notified and verbalizes understanding. MARYBEL Mccormick CULTURIST documented in this encounter Plan of Treatment Upcoming Encounters Date Type Department Care Team (Late st Contact Info) Description 11/02/2024 8:00 AM AQUACULTURIST Office Visit [address] [place] [address] Ella Hodge FNP [address] [facility] [place] [address] 01/19/2025 11:00 AM CDT Office Visit [facility] Pul[facility]ology Specialty Clinic - [address] [place] [address] Stanley Jim MD [address] [place] [address] 06/23/2025 8:20 AM CDT Office Visit [address] [place] [address] Comrie, Ella A, [address] [address] documented as of this encounter Procedures Procedure Name Priority Date/Time Associated Diagnosis Comments HEMOGLOBIN AND HEMATOCRIT Routine 11/26/2019 2:12 PM AQUACULTURIST Postoperative anemia documented in this encounter Results * (ABNORMAL) HEMOGLOBIN AND HEMATOCRIT (11/26/2019 2:12 PM AQUACULTURIST) HGB 9.9(L) 12.0 - 16.0 g/dL [facility] HCT 31.4(L) 36.0 - 46.0 % [facility] 11/26/2019 2:12 PM AQUACULTURIST 11/26/2019 3:55 PM AQUACULTURIST Demetrio Shore MD LABORATORY Final Result Performing Organization Address City/State/[facility] Co de Phone Number [address] [address] documented in this encounter Visit Diagnoses Diagnosis Encounter for examination following treatment at hospital- Primary History of total right hip arthroplasty Postoperative anemia Anemia, unspecified Hyponatremia Hyposmolality and/or hyponatremia Hyperlipidemia, unspecified hyperlipidemia type documented in this encounter Care Teams Lapping Machine Tender Relationship Specialty Start Date End Date Demetrio Shore MD PCP - General FAMILY PRACTICE 11/11/19 03/29/23 documented as of this encounter
--- OUTSIDE RECORDS SUMMARY | 2024-10-24 11:59 | XMS_ITS | Encounter Summary ---
Author Organization [facility] Address [address] [place] [address]. [place], [place] [id number] [place] [address] Care Team Providers Care Mounter Smoking Pipe Name Role Phone Demetrio Shore MD Primary Care Pr ovider Unavailable Encounter Details Date Type Department Care Team (Latest Contact Info) Description 12/15/2019 Scan HEALTH INFO SRVCS Scanned, Documents Social [...] st Contact Info) Description 11/02/2024 8:00 AM PORK CUTLET MAKER Office Visit [facility] [address] [place] [address] Ella Hodge, [facility] [address] [place] [address] 01/19/2025 11:00 AM CDT Office Visit [facility] - [place] [address] [facility] [place] [address] Stanley Jim MD [address] [place] [address] 06/23/2025 8:20 AM CDT Office Visit [facility] [address] [place] [address] Ella Hodge FNP [address] [place] [address] documented as of this encounter Visit Diagnoses Not on filedocumented in this encounter Care Teams Mounter Smoking Pipe Relationship Specialty Start Date End Date Demetrio Shore MD PCP - General FAMILY PRACTICE 11/11/19 03/29/23 documented as of this encounter
--- OUTSIDE RECORDS SUMMARY | 2024-10-24 11:59 | XMS_ITS | Encounter Summary ---
Author Organization [facility] Address Formerly [facility]. [place], [place] [address] [place] [address] Care Team Providers Care Industrial Refrigeration Mechanic Name Role Phone Demetrio Shore MD Primary Care Pr ovider Unavailable Joon Lewis Unavailable [phone] Callie Guerrero DO Unavailable [phone] George Osorio MD Unavailable Sergey Ramey Unavailable Jony Pruitt DPM Unavailable Gama Graves MD Unavailable [phone] Encounter Details Date Type Department Care Team (Late st Contact Info) Description 12/22/2019 Abstract [facility] [address] [place] [address] Demetrio Shore MD Social History Tobacco Use [...] st Contact Info) Description 11/02/2024 8:00 AM SHIRRER Office Visit [address] [place] [address] Ella Hodge [address] [place] [address] 01/19/2025 11:00 AM CDT Office Visit [facility] Medical [facility] [address] [place] [address] Stanley Jim MD [address] [place] [address] 06/23/2025 8:20 AM CDT Office Visit [address] [place] [address] Ella Hodge [address] [place] [address] documented as of this encounter Visit Diagnoses Not on filedocumented in this encounter Care Teams Industrial Refrigeration Mechanic Relationship Specialty Start Date End Date Demetrio Shore MD PCP - General FAMILY PRACTICE 11/11/19 03/29/23 Joon Lewis PA PHYSICIAN CLIENT SERVICES ASSOCIATE 05/09/21 Callie Guerrero DO [facility] 06/14/21 [place] [address] Marco A Wiseman [address] [address] GASTROENTEROLOGY 06/14/21 Sergey Ramey PA [address] [place] [address] PHYSICIAN CLIENT SERVICES ASSOCIATE 06/14/21 Jony Pruitt DPM [address] [place] [address], [address] [place] [address] Referring Physician PODIATRY/SURGERY 06/14/21 [place] [address] [place] [address] ORTHOPAEDIC SURGERY 06/14/21 documented as of this encounter
--- OUTSIDE RECORDS SUMMARY | 2024-10-24 12:00 | XMS_ITS | Encounter Summary ---
Author Organization [facility] Address [address] [place] [address]. [place], [place] [address] [place] [address] Care Team Providers Care Assistant Account Manager Name Role Phone Ziggy Harding MD Primary Care Provider [phone] Reason for Referral * (Routine) - Closed Specialty Diagnoses / Procedures Referred By Chet nicholson Referred To Contact Diagnoses Primary osteoarthritis of right hip Procedures Joint Aspiration/Injection Cornelia Ortega NP-C Referral ID Status Reason Start Date Expiration Date Visits Re quested Visits Authorized [id number] Closed 06/02/2019 07/03/2020 1 1 Reason for Visit * Reason Comments Follow Up Rt hip pain * Consultation/Treatment (Routine) - Closed Specialty Diagnoses / Procedures Referred By Chet nicholson Referred To Contact ORTHOPAEDICS Diagnoses Chronic pain of right hip Ella Hodge, [address] [place] [address] Phone: tel: fax: Cornelia Ortega NP-C Referral ID Status Reason Start Date Expiration Date V isits Requested Visits Authorized [id number] Closed Specialty Services 01/19/2019 02/20/2020 100 100 Encounter Details Date Type Department Care Team (Late st Contact Info) Description 06/02/2019 9:40 AM CDT Office Visit [facility] Medical Group Multispecialty Care - [address] [place] [address] Cornelia Ortega NP-C Follow Up (Rt hip pain) Social History Tobacco Use Types Packs/Day Years Used Date Smoking Tobacco: Never Smokeless Tobacco: Never Comments No Sex and Gender Information Value Date Recorded Sex Assigned at Not on file Legal Sex Female 5:51 PM CDT Gender Identity Not on file Sexual Orientation Not on file documented as of this encounter Last Filed Vital Signs Vital Sign Reading Time Taken Comments Blood Pressure 128/78 06/02/2019 9:24 AM CDT Pulse 69 06/02/2019 9:24 AM CDT Temperature - - Respiratory Rate - - Oxygen Saturation - - Inhaled Oxygen Concentration - - Weight 67.6 kg (149 lb) 06/02/2019 9:24 AM CDT Height 152.4 cm (5') 06/02/2019 9:24 AM CDT Body Mass Index 29.1 06/02/2019 9:24 AM CDT documented in this encounter Progress Notes * RENEE Lance - 06/02/2019 9:40 AM CDTAssociated Order(s): Joint Aspiration/Injection Images from the original note were not included. Office Progress Note Reason for Visit: Follow Up (Rt hip pain) History of Present Illness: Patient is a pleasant 73-year-old who is here today for follow up right hip pain. Patient does denies anterior hip pain but states her pain is more lateral and somewhat posterior. She states that shehas no pain at rest but minimal pain when getting up from a seated position with the first few steps since starting Meloxicam. She has increased her Meloxicam to 15 mg per day with little benefit. After patient walks for a bit the pain seems to decrease. Patient has done 1 month of physical therapywith minimal pain relief. Patient denies having any prior surgery. No prior hip injections have been done. Patient denies numbness/tingling to her right leg. ?? Patient lives with her spouse. Patient is fairly active in their community ROS: Review of Systems Musculoskeletal: Positive for joint pain. All other systems reviewed and are negative. Medications: Outpatient Medications Marked as Taking for the 06/02/19 encounter (Office Visit) with RENEE Lance Medication Sig Dispense Refill ??? rxnunjlwar-pntxkbdwwhstw-eijsbumx 50-325-40 MG tablet Take 1 tablet by mouth every 4 (four) hours as needed. ??? meloxicam 7.5 MG tablet Take 1 tablet (7.5 mg total) by mouth daily. 30 tablet 5 ??? MONTELUKAST 10 MG tablet TAKE 1 TABLET BY MOUTH EVERY DAY 90 tablet 0 ??? Polyethyl Glycol-Propyl Glycol (SYSTANE OP) ??? PRAVASTATIN 20 MG tablet TAKE 1 TABLET BY MOUTH EVERY DAY 90 tablet 0 ??? ranitidine 300 MG tablet Take 1 tablet daily at bedtime. 90 tablet 3 Current Facility-Administered Medications for the 06/02/19 encounter (Office Visit) with RENEE Mata Medication Dose Route Frequency Provider Last Rate Last Dose ??? triamcinolone acetonide (KENALOG-40) injection 40 mg 40 mg Intra-articular Once RENEE Lance Allergies: No Known Allergies Medical History: Past Medical History: Diagnosis Date ??? Allergic rhinitis ??? Heartburn ??? Hip pain Surgical History: Past Surgical History: Procedure Laterality Date ??? BREAST BIOPSY ??? COLONOSCOPY Social History: Social History Socioeconomic History ??? Marital status: Spouse name: Not on file ??? Number of children: Not on file ??? Years of education: Not on file ??? Highest education level: Not on file Occupational History ??? Not on file Social Needs ??? Financial resource strain: Not on file ??? Food insecurity: Worry: Not on file Inability: Not on file ??? Transportation needs: Medical: Not on file Non-medical: Not on file Tobacco Use ??? Smoking status: Never Smoker ??? Smokeless tobacco: Never Used Substance and Sexual Activity ??? Alcohol use: Not on file ??? Drug use: Not on file ??? Sexual activity: Not on file Lifestyle ??? Physical activity: Days per week: Not on file Minutes per session: Not on file ??? Stress: Not on file Relationships ??? Social connections: Talks on phone: Not on file Gets together: Not on file Attends latter-day service: Not on file Active member of club or organization: Not on file Attends meetings of clubs or organizations: Not on file Relationship status: Not on file ??? Intimate partner violence: Fear of current or ex partner: Not on file Emotionally abused: Not on file Physically abused: Not on file Forced sexual activity: Not on file Other Topics Concern ??? Not on file Social History Narrative ??? Not on file Family History: Family History Problem Relation Name Age of Onset ??? Other (TIA) Mother ??? Colon Cancer Brother ??? Migraines Daughter VITALS: Filed Vitals: 06/02/19 0924 BP: 128/78 Pulse: 69 Weight: 67.6 kg (149 lb) Height: 5' (1.524 m) PE: Physical Exam Constitutional: She is oriented to person, place, and time and well-developed, well-nourished, and in no distress. No distress. HENT: Head: Normocephalic and atraumatic. Eyes: EOM are normal. Pupils are equal, round, and reactive to light. Neck: Normal range of motion. Neck supple. Cardiovascular: Intact distal pulses. Pulmonary/Chest: Effort normal. Musculoskeletal: Right hip: She exhibits decreased range of motion. Neurological: She is alert and oriented to person, place, and time. limping Skin: Skin is warm and dry. No erythema. Psychiatric: Affect and judgment normal. Vitals reviewed. Imaging: Reviewed most recent image study. 2 view right hip 11/02/18 done at [facility]. Images brought on disc.?? Impression: Moderate loss of joint space with moderate osteophyte Joint Aspiration/Injection Date/Time: 06/02/2019 10:10 AM Performed by: RENEE Lance Authorized by: RENEE Lance Indications: pain Body area: hip Joint: right hip Local anesthesia used: yes Anesthesia: Local anesthesia used: yes Local Anesthetic: lidocaine 1% without epinephrine Anesthetic total: 2 mL Sedation: Patient sedated: no Preparation: Patient was prepped and draped in the usual sterile fashion. Needle size: 20 G (spinal) Ultrasound guidance: yes Approach: anterior Triamcinolone amount: 40 mg Lidocaine 2% amount: 2 mL Patient tolerance: Patient tolerated the procedure well with no immediate complications Right hip Diagnoses/Impression: 1. Primary osteoarthritis of right hip triamcinolone acetonide (KENALOG-40) injection 40 mg ARTHROCENTESIS MAJOR JOINT W/ ULTRASOUND GUIDANCE Recommendations and Plan: Discussed risks and benefits of intra-articular right hip injection. Patient tolerated injection well. Postinjection handout was reviewed and provided to patient. Patient to decrease her use of meloxicam to daily and possible wean off if she is getting good benefits from her cortisone injection. Patient follow-up in 4 weeks to check the status post injection of her hip pain. Discussed possiblebenefit from total hip replacement in the future. Diagnosis and plan of care was discussed with patient. Patient verbalized understanding of treatment plan. Patient was informed to call the office if there is any increase in pain, swelling, side effects of any medication administered here today. RENEE LANCE 06/02/2019 documented in this encounter Plan of Treatment Upcoming Encounters Date Type Department Care Team (Late st Contact Info) Description 11/02/2024 8:00 AM SNOW GROOMER Office Visit [address] [place] [address] Ella Hodge FNP [address] [place] [address] [place] [address] 01/19/2025 11:00 AM CDT Office Visit [facility] Medical Group Pul[facility] [address] [place] [address] Stanley Jim MD [address] [place] [address] 06/23/2025 8:20 AM CDT Office Visit [address] [place] [address] Ella Hodge FNP [address] [place] [address] [place] [address] Scheduled Orders Name Type Priority Associated Diagnoses Orde r Schedule ARTHROCENTESIS MAJOR JOINT W/ ULTRASOUND GUIDANCE Procedures Routine Primary osteoarthritis of right hip Ordered: 06/02/2019 documented as of this encounter Procedures Procedure Name Priority Date/Time Associated Diagnosis Comments JOINT ASPIRATION/INJECTI ON Routine 06/02/2019 9:40 AM CDT Primary osteoarthritis of right hip documented in this encounter Results * Joint Aspiration/Injection (06/02/2019 9:40 AM CDT) Cornelia Joel NP-C - 06/02/2019 9:40 AM CDT RENEE Lance ? 06/02/2019 10:29 AM Joint Aspiration/Injection Date/Time: 06/02/2019 10:10 AM Performed by: RENEE Lance Authorized by: RENEE Lance Indications: pain Body area: hip Joint: right hip Local anesthesia used: yes Anesthesia: Local anesthesia used: yes Local Anesthetic: lidocaine 1% without epinephrine Anesthetic total: 2 mL Sedation: Patient sedated: no Preparation: Patient was prepped and draped in the usual sterile fashion. Needle size: 20 G (spinal) Ultrasound guidance: yes Approach: anterior Triamcinolone amount: 40 mg Lidocaine 2% amount: 2 mL Patient tolerance: Patient tolerated the procedure well with no immediate complications Cornelia DURAN PROCEDURE/MINOR SURGICAL ORDERABLES Final Result documented in this encounter Visit Diagnoses Diagnosis Primary osteoarthritis of right hip- Primary Primary localized osteoarthrosis, pelvic region and thigh documented in this encounter Administered Medications Inactive Administered Medications - up to 3 most recent administrations Medication Order MAR Action Action Date Dose Rate Site triamcinolone acetonide (KENALOG-40) injection 40 mg 40 mg, Intra-articular, Once, 1 dose, On Fri06/02/19 at 1000, Shake Well RightIndications:Primary osteoarthritis of right hip Given 06/02/2019 11:39 AM CDT 40 mg Right Knee documented in this encounter Care Teams Assistant Account Manager Relationship Specialty Start Date End Date Ziggy Harding MD [address] [place] [address] [place] [address] PCP - General FAMILY PRACTICE 09/21/18 11/10/19 documented as of this encounter
--- OUTSIDE RECORDS SUMMARY | 2024-10-24 12:00 | XMS_ITS | Encounter Summary ---
Author Organization [facility] Address Critical access hospital[facility] [place], [place] [address] [place] [address] Care Team Providers Care Credit Coordinator Name Role Phone Ziggy Harding MD Primary Care Provider [phone] Reason for Visit * Reason Onset Date Comments Medication 12/23/2018 [facility] [place] calls and leaves voice message. Refill request faxed to this office, for pravastatin. Please call pharmacy. Encounter Details Date Type Department Care Team (Late st Contact Info) Description 12/23/[address] [place] [address] Ziggy Harding MD [address] [place] [address] [place] [address] Medication ([facility] [place] calls and leaves voice message. Refill request faxed to this office, for pravastatin. Please call pharmacy.) Social History Tobacco Use Types Packs/Day Years Used Date Smoking Tobacco: Never Smokeless Tobacco: Never Comments Unknown Sex and Gender Information Value Date Recorded Sex Assigned at Not on file Legal Sex Female 5:51 PM CDT Gender Identity Not on file Sexual Orientation Not on file documented as of this encounter Progress Notes * Joanna Brown - 12/23/2018 3:18 PM CST [facility] [place] calls and leaves voice message. Refill request faxed to this office, for pravastatin. Please call pharmacy. TH NAVIGATOR documented in this encounter Plan of Treatment Upcoming Encounters Date Type Department Care Team (Late st Contact Info) Description 11/02/2024 8:00 AM HEALTH NAVIGATOR Office Visit Critical access hospital [address] [place] [address] Ella Hodge [facility] [address] [facility] [place] [address] 01/19/2025 11:00 AM CDT Office Visit [facility] Medical Group Pulmonology Specialty Clinic - [place] [address] [place] [address] Stanley Jim MD [address] [place] [address] 06/23/2025 8:20 AM CDT Office Visit Critical access hospital [address] [place] [address] Ella Hodge [address] [place] [address] documented as of this encounter Visit Diagnoses Not on filedocumented in this encounter Care Teams Credit Coordinator Relationship Specialty Start Date End Date Ziggy Harding MD [address] [facility] [place] [address] PCP - General FAMILY PRACTICE 09/21/18 11/10/19 documented as of this encounter
--- OUTSIDE RECORDS SUMMARY | 2024-10-24 12:00 | XMS_ITS | Encounter Summary ---
Author Organization [facility] Address [address] [place] [address]. [place], [place] [address] [place] [address] Care Team Providers Care Goat Herder Name Role Phone Ziggy Harding MD Primary Care Provider [phone] Encounter Details Date Type Department Care Team (Latest Contact Info) Description 10/16/2019 Scan HEALTH INFO SRVCS Scanned, Documents Social [...] st Contact Info) Description 11/02/2024 8:00 AM HAND STONE POLISHER Office Visit formerly [facility] [address] [place] [address] Ella Hodge, [facility] [address] [place] [address] 01/19/2025 11:00 AM CDT Office Visit [facility] Medical Group [facility] - [place] [address] [facility] [place] [address] Stanley Jim MD [address] [place] [address] 06/23/2025 8:20 AM CDT Office Visit formerly [facility] [address] [place] [address] Ella Hodge VOLTAGE INSPECTOR [address] [place], [place] [address] documented as of this encounter Visit Diagnoses Not on filedocumented in this encounter Care Teams Goat Herder Relationship Specialty Start Date End Date Ziggy Harding MD [address] [facility] [address] [place], [place] [id number] PCP - General FAMILY PRACTICE 09/21/18 11/10/19 documented as of this encounter
--- OUTSIDE RECORDS SUMMARY | 2024-10-24 12:00 | XMS_ITS | Encounter Summary ---
Author Organization [facility] Address [facility]. [place], [place] [address] [place] [address] Care Team Providers Care Eyeglass Assembler Name Role Phone Ziggy Harding MD Primary Care Provider [phone] Reason for Visit * Reason Onset Date Comments Consult 01/28/2019 Encounter Details Date Type Department Care Team (Late st Contact Info) Description 01/28/2019 Telephone [facility] [address] [facility] [address] [address] [place] [id number] Ella Hodge, [place] [address] [place], [place] [id number] Consult Social History Tobacco Use Types Packs/Day Years Used Date Smoking Tobacco: Never Smokeless Tobacco: Never Comments No Sex and Gender Information Value Date Recorded Sex Assigned at Not on file Legal Sex Female 5:51 PM CDT Gender Identity Not on file Sexual Orientation Not on file documented as of this encounter Progress Notes * Dequan Burnett LPN - 01/28/2019 10:32 AM CDTAddended by: DEQUAN BURNETT on: 01/28/2019 10:32 AM Modules accepted: Orders * Dequan Burnett LPN - 01/28/2019 10:32 AM CDT Patient aware. Medication sent to [facility]. * THEODORA Kendall - 01/28/2019 10:25 AM CDT Okay to refill ranitidine at 300mg po daily disp #90 with 3 refills. * Dequan Burnett LPN - 01/28/2019 10:06 AM CDT Patient notes she is doing very well on ranitidine 300 mg take 1 tablet daily. Ok to refill to pharmacy? * Awilda Wooten - 01/28/2019 9:24 AM CDT Wondering if anyone here pierces ears. Also has a report on her meds. Would like to talk to Dequan. documented in this encounter Plan of Treatment Upcoming Encounters Date Type Department Care Team (Late st Contact Info) Description 11/02/2024 8:00 AM CORONER TECHNICIAN Office Visit [address] [place] [address] Ella Hodge FNP [address] [facility] [place] [address] 01/19/2025 11:00 AM CDT Office Visit [facility] Medical Group Pulmonology Specialty Clinic - [address] [place], [place] [phone] Stanley Jim MD [address] [place] [address] 06/23/2025 8:20 AM CDT Office Visit [address] [place] [address] Ella Hodge [facility] [address] [place] [address] documented as of this encounter Visit Diagnoses Diagnosis Heartburn documented in this encounter Care Teams Eyeglass Assembler Relationship Specialty Start Date End Date Ziggy Harding MD [address] [facility] [address] [place] [id number] PCP - General FAMILY PRACTICE 09/21/18 11/10/19 documented as of this encounter
--- OUTSIDE RECORDS SUMMARY | 2024-10-24 12:00 | XMS_ITS | Encounter Summary ---
Author Organization [facility] Address Formerly [facility], [facility]. [place], [place] [address] [place] [address] Care Team Providers Care Sed High School Teacher Name Role Phone Ziggy Harding MD Primary Care Provider [phone] Reason for Visit * Reason Comments Follow Up Rt hip pain * Consultation/Treatment (Routine) - Closed Specialty Diagnoses / Procedures Referred By Chet nicholson Referred To Contact ORTHOPAEDICS Diagnoses Chronic pain of right hip Ella Hodge, [address] [place] [address] Phone: tel: fax: Cornelia Ortega NP-C Referral ID Status Reason Start Date Expiration Date V isits Requested Visits Authorized [id number] Closed Specialty Services 01/19/2019 02/20/2020 100 100 Encounter Details Date Type Department Care Team (Late st Contact Info) Description 04/01/2019 10:00 AM CDT Office Visit [facility] Multispecialty Care - [address], [address] [place] [address] Cornelia Ortega NP-C Follow Up [...] Sign Reading Time Taken Comments Blood Pressure 122/90 04/01/2019 9:57 AM CDT Pulse 76 04/01/2019 9:57 AM CDT Temperature - - Respiratory Rate - - Oxygen Saturation - - Inhaled Oxygen Concentration - - Weight 67.1 kg (148 lb) 04/01/2019 9:57 AM CDT Height 152.4 cm (5') 04/01/2019 9:57 AM CDT Body Mass Index 28.9 04/01/2019 9:57 AM CDT documented in this encounter Progress Notes * RENEE Lance - 04/01/2019 10:00 AM CDT Images from the original note were not included. Office Progress Note Reason for Visit: Follow Up (Rt hip pain) History of Present Illness: Patient is a pleasant 73-year-old who is here today for follow up right hip pain. Patient does denie anterior hip pain but states her pain is more lateral and somewhat posterior. She states that she has no pain at rest but minimal pain when getting up from a seated position with the first few stepssince starting Meloxicam. After patient walks for a bit the pain seems to decrease. Patient has started Meloxicam about 2 months ago and has a good response and pain is now minimal to her right hip. Patient has done 1 month of physical therapy with minimal pain relief. Patient denies having any prior surgery. No prior hip injections have been done. Patient denies numbness/tingling to her right leg. ?? Patient lives with her spouse. Patient is fairly active in their community. ROS: Review of Systems All other systems reviewed and are negative. Medications: Outpatient Medications Marked as Taking for the 04/01/19 encounter (Office Visit) with RENEE Lance Medication Sig Dispense Refill ??? izwemewwev-kosstgayimydk-hdijkekc 50-325-40 MG tablet Take 1 tablet by mouth every 4 (four) hours as needed. ??? fexofenadine (ARELI ALLERGY) 180 MG tablet Take 1 tablet by mouth daily. ??? meloxicam 7.5 MG tablet Take 1 tablet (7.5 mg total) by mouth daily. 30 tablet 5 ??? MONTELUKAST 10 MG tablet TAKE 1 TABLET BY MOUTH EVERY DAY 90 tablet 0 ??? Multiple Minerals-Vitamins ([facility] CITRATE+D/MAGNESIUM) Tab Take 1 tablet by mouth daily. ??? Naproxen Sodium (ALEVE) 220 MG Cap Take by mouth as needed. ??? Polyvinyl Alcohol-Povidone (FRESHKOTE OP) Apply to eye 4 (four) times daily. ??? PRAVASTATIN 20 MG tablet TAKE 1 TABLET BY MOUTH EVERY DAY 30 tablet 0 ??? ranitidine 300 MG tablet Take 1 tablet daily at bedtime. 90 tablet 3 Allergies: No Known Allergies Medical History: Past [...] file Gets together: Not on file Attends shinto service: Not on file Active member of [...] Other (TIA) Mother ??? Colon Cancer Brother VITALS: Filed Vitals: 04/01/19 0957 BP: 122/90 Pulse: 76 Weight: 67.1 kg (148 lb) Height: 5' (1.524 m) PE: Physical Exam Constitutional: She is oriented to person, place, and time and well-developed, well-nourished, and in no distress. HENT: Head: Normocephalic and atraumatic. Eyes: EOM are normal. Pupils are equal, round, and reactive to light. Neck: Normal range of motion. Neck supple. Cardiovascular: Intact distal pulses. Pulmonary/Chest: Effort normal. Musculoskeletal: Right hip: She exhibits decreased range of motion. Neurological: She is alert and oriented to person, place, and time. Gait normal. Skin: Skin is warm and dry. Psychiatric: Affect and judgment normal. Vitals reviewed. Imaging: Reviewed most recent image study. Moderate loss of joint space with moderate osteophytes. Diagnoses/Impression: 1. Primary osteoarthritis of right hip meloxicam 7.5 MG tablet Recommendations and Plan: Discussed with patient that she is a getting good benefits from her meloxicam and we will continue this. Discussed side effects of meloxicam. Informed patient she may increase 2 tabs per day when shehas extra activities and has pain in the evening. Patient not to exceed more than 2 tablets/day. Patient follow-up as needed. Did instruct that her next step may be intra- articular right hip injection if the meloxicam is no longer helping. Did also inform her that her PCP may renew meloxicam. Reviewed a with patient not to take additional anti-inflammatories along with her meloxicam. Patient verbalized understanding. Diagnosis and plan of care was discussed with patient. Patient verbalized understanding of treatment plan. Patient was informed to call the office if there is any increase in pain, swelling, side effects of any medication administered here today. RENEE LANCE 04/01/2019 documented in this encounter Plan of Treatment Upcoming Encounters Date Type Department Care Team (Late st Contact Info) Description 11/02/2024 8:00 AM SITE ADMINISTRATOR Office Visit [address] [place] [address] Ella Hodge [facility] [address] [place] [address] 01/19/2025 11:00 AM CDT Office Visit [facility] [place] [address] [place] [address] Stanley Jim MD [address] [place] [address] 06/23/2025 8:20 AM CDT Office Visit [facility] [address] [facility] [place] [address] Ella Hodge [facility] [address] [place] [address] documented as of this encounter Visit Diagnoses Diagnosis Primary osteoarthritis of right hip- Primary Primary localized osteoarthrosis, pelvic region and thigh documented in this encounter Care Teams Sed High School Teacher Relationship Specialty Start Date End Date Ziggy Harding MD [address] [place], [place] [id number] PCP - General FAMILY PRACTICE 09/21/18 11/10/19 documented as of this encounter
--- OUTSIDE RECORDS SUMMARY | 2024-10-24 12:00 | XMS_ITS | Encounter Summary ---
Author Organization [facility] Address [address] [place] [address]. [place], [place] [address] [place] [address] Care Team Providers Care Penciller Name Role Phone Ziggy Harding MD Primary Care Provider [phone] Encounter Details Date Type Department Care Team (Late st Contact Info) Description 12/22/2018 Orders Only [facility] [address] [place] [address] Dayana Burnett, RN Social History Tobacco Use Types Packs/Day [...] st Contact Info) Description 11/02/2024 8:00 AM BPO SPECIALIST Office Visit [facility] [address] [place] [address] Ella Hodge FNP [address] [place] [address] 01/19/2025 11:00 AM CDT [facility] - [address] [place] [address] Stanley Jim MD [address] [address] 06/23/2025 8:20 AM CDT Office Visit [facility] [address] [place] [address] Ella Hodge [facility] [address] [place] [id number] documented as of this encounter Visit Diagnoses Diagnosis Chronic rhinitis documented in this encounter Care Teams Penciller Relationship Specialty Start Date End Date Ziggy Harding MD [address] [place] [address] [place], [place] [id number] PCP - General FAMILY PRACTICE 09/21/18 11/10/19 documented as of this encounter
--- OUTSIDE RECORDS SUMMARY | 2024-10-24 12:00 | XMS_ITS | Encounter Summary ---
Author Organization [facility] Address [facility]. [place], [place] [address] [place] [address] Care Team Providers Care Director Of Enterprise Architecture Name Role Phone Ziggy Harding MD Primary Care Provider [phone] Encounter Details Date Type Department Care Team (Latest Contact Info) Description 06/02/2019 Scan HEALTH INFO SRVCS Scanned, Documents Social [...] st Contact Info) Description 11/02/2024 8:00 AM DIE TRY OUT WORKER STAMPING Office Visit [facility] [address] [place] [address] Ella Hodge FNP [address] [place] [address] 01/19/2025 11:00 AM CDT Office Visit [facility] - [place] [address] [address] Stanley Jim MD [address] [place] [address] 06/23/2025 8:20 AM CDT Office Visit [facility] [address] [facility] [place] [address] Ella Hodge [facility] [address] [place] [address] documented as of this encounter Visit Diagnoses Not on filedocumented in this encounter Care Teams Director Of Enterprise Architecture Relationship Specialty Start Date End Date Ziggy Harding MD [address] [place] [address] PCP - General FAMILY PRACTICE 09/21/18 11/10/19 documented as of this encounter
--- OUTSIDE RECORDS SUMMARY | 2024-10-24 12:00 | XMS_ITS | Encounter Summary ---
Author Organization [facility] Address [address] [place] [address]. [place], [place] [address] [place] [address] Care Team Providers Care Home Theatre Technician Name Role Phone Ziggy Harding MD Primary Care Provider [phone] Reason for Visit * Reason Comments Outside Record (SCAN) PROGRESS REPORT-AP EX PHYSICAL THERAPY Encounter Details Date Type Department Care Team (Late st Contact Info) Description 12/23/2018 Scan HEALTH INFO SRVCS Scanned, Documents Outside Record (SCAN) (PROGRESS REPORT-APEX PHYSICAL THERAPY) Social History Tobacco Use Types Packs/Day Years [...] st Contact Info) Description 11/02/2024 8:00 AM KNIFE GLAZER Office Visit [facility] [address] [place] [address] Ella Hodge FNP [address] [place] [address] 01/19/2025 11:00 AM CDT Office Visit [facility] [place] [address] [place] [address] Stanley Jim MD [address] [address] 06/23/2025 8:20 AM CDT Office Visit [facility] [address] [facility] [address] [place], [place] [id number] Ella Hodge [facility] [address] [place] [address] documented as of this encounter Visit Diagnoses Not on filedocumented in this encounter Care Teams Home Theatre Technician Relationship Specialty Start Date End Date Ziggy Harding MD [address] [facility] [place] [address] PCP - General FAMILY PRACTICE 09/21/18 11/10/19 documented as of this encounter
--- OUTSIDE RECORDS SUMMARY | 2024-10-24 12:00 | XMS_ITS | Encounter Summary ---
Author Organization [facility] Address [facility]. [place], [place] [address] [place] [address] Care Team Providers Care Dyehouse Worker Name Role Phone Ziggy Harding MD Primary Care Provider [phone] Reason for Visit * Reason Onset Date Comments Consult 06/04/2019 Encounter Details Date Type Department Care Team (Late st Contact Info) Description 06/04/2019 Telephone [facility] [address] [facility] [place] [address] Ella Hodge, [address] [place], [place] [phone] Consult Social History Tobacco Use Types Packs/Day Years Used Date Smoking Tobacco: Never Smokeless Tobacco: Never Comments No Sex and Gender Information Value Date Recorded Sex Assigned at Not on file Legal Sex Female 5:51 PM CDT Gender Identity Not on file Sexual Orientation Not on file documented as of this encounter Progress Notes * Yesi Burnett LPN - 06/04/2019 10:16 AM CDT Patient aware to have blood drawn. * Awilda Wooten - 06/04/2019 9:13 AM CDT Patient says we have been playing phone tag with her this week, but I can't find any telephone encounters/in baskets. Patient would like a return phone call [phone]. documented in this encounter Plan of Treatment Upcoming Encounters Date Type Department Care Team (Late st Contact Info) Description 11/02/2024 8:00 AM BIODIESEL PRODUCT DEVELOPMENT MANAGER Office Visit [address] [place] [address] Ella Hodge [facility] [address] [facility] [address] 01/19/2025 11:00 AM CDT Office Visit [facility] Pulmonology Specialty Clinic - [address] [place] [address] Stanley Jim MD [address] [place] [address] 06/23/2025 8:20 AM CDT Office Visit [address] [place] [address] Ella Hodge [address] [place] [address] documented as of this encounter Visit Diagnoses Not on filedocumented in this encounter Care Teams Dyehouse Worker Relationship Specialty Start Date End Date Ziggy Harding MD [address] [facility] [place] [address] PCP - General FAMILY PRACTICE 09/21/18 11/10/19 documented as of this encounter
--- OUTSIDE RECORDS SUMMARY | 2024-10-24 12:00 | XMS_ITS | Encounter Summary ---
Author Organization [facility] Address [address] [facility] [place] [address] [place] [address] Care Team Providers Care Body Shop Mechanic Name Role Phone Ziggy Harding MD Primary Care Provider [phone] Reason for Visit * Reason Onset Date Comments Follow Up Call 06/09/2019 Encounter Details Date Type Department Care Team (Late st Contact Info) Description 06/09/2019 Telephone [facility] Multispecialty Care - [address], [address] [place] [address] Cornelia Ortega, REGION MANAGER-C Follow Up Call Social History Tobacco Use Types Packs/Day Years Used Date Smoking Tobacco: Never Smokeless Tobacco: Never Comments No Sex and Gender Information Value Date Recorded Sex Assigned at Not on file Legal Sex Female 5:51 PM CDT Gender Identity Not on file Sexual Orientation Not on file documented as of this encounter Progress Notes * Eliu Escobar MA - 06/09/2019 3:59 PM CDT Spoke to patient regarding message above and she was concerned about a red spot on her skin after receiving hip injection on 06/02/2019. I asked patient if she noticed any swelling, redness,warmth, or had a fever. Pt is currently having any symptoms and red spot is the size of a dime an is not spreading. I told patient patient this is normal and to call back if there is any changes. Pt conveyed un derstanding. * Jia Ellington - 06/09/2019 3:39 PM CDT Patient called in, had injection in right hip 06/03/2019. Has a red spot the size of a dime, was not there the day of or the day after the injection. Patient saw this, this morning, she letty around it to see if it was going to get bigger, it has not as of yet. No pain, swelling, or fever in it. Patient wants to know if this is ok, normal? Please call patient. documented in this encounter Plan of Treatment Upcoming Encounters Date Type Department Care Team (Late st Contact Info) Description 11/02/2024 8:[address] CLERK Office Visit [address] [place] [address] Ella Hodge [address] [place] [address] 01/19/2025 11:00 AM CDT Office Visit [facility] Pul[facility]ty [facility] - [address] [place] [address] Stanley Jim MD [address] [place] [address] 06/23/2025 8:20 AM CDT Office Visit [address] [place] [address] Ella Hodge [address] [place] [address] documented as of this encounter Visit Diagnoses Not on filedocumented in this encounter Care Teams Body Shop Mechanic Relationship Specialty Start Date End Date Ziggy Harding MD [address] [place] [address] [place] [address] PCP - General FAMILY PRACTICE 09/21/18 11/10/19 documented as of this encounter
--- OUTSIDE RECORDS SUMMARY | 2024-10-24 12:00 | XMS_ITS | Encounter Summary ---
Author Organization [facility] Address [facility]. [place], [place] [address] [place] [address] Care Team Providers Care Armored Car Messenger Name Role Phone Ziggy Harding MD Primary Care Provider [phone] Reason for Visit * Reason Onset Date Comments Refill Request 07/28/2019 Encounter Details Date Type Department Care Team (Late st Contact Info) Description 07/28/2019 Telephone [facility] [address] [facility] [place] [address] Ella Hodge FNP [address] [place] [address] [place] [phone] Refill Request Social History Tobacco Use Types Packs/Day Years Used Date Smoking Tobacco: Never Smokeless Tobacco: Never Comments No Sex and Gender Information Value Date Recorded Sex Assigned at Not on file Legal Sex Female 5:51 PM CDT Gender Identity Not on file Sexual Orientation Not on file documented as of this encounter Progress Notes * Yesi Burnett LPN - 07/29/2019 1:29 PM CDT Patient told. Medication sent to [facility]. * THEODORA Kendall - 07/29/2019 10:32 AM CDT Fine to give ranitidine 150mg po BID disp #180 with 1 refill. * Edith Trinidad RN - 07/28/2019 3:13 PM CDT Ella chery advise refill * Awilda Wooten - 07/28/2019 2:16 PM CDT [facility] [place] * Awilda Wooten - 07/28/2019 2:13 PM CDT Patient needs ranitidine refilled. Was taking 150mg, but was changed to 300mg. Was told she could cut 300 in half. Patient about out of 300. Been taking half in the morning around breakfast and half in the evening around dinner, so 150mg BID. Requesting 150mg BID. documented in this encounter Plan of Treatment Upcoming Encounters Date Type Department Care Team (Late st Contact Info) Description 11/02/2024 8:00 AM JUICE MIXER Office Visit [address] [place] [address] Ella Hodge FNP [address] [place] [address] 01/19/2025 11:00 AM CDT Office Visit [facility]ty [facility] - [place] [address] [facility] [place] [address] Stanley Jim MD [address] [place] [address] 06/23/2025 8:20 AM CDT Office Visit [address] [place] [address] Ella Hodge FNP [address] [place] [id number] documented as of this encounter Visit Diagnoses Diagnosis Chronic pain of right hip- Primary documented in this encounter Care Teams Armored Car Messenger Relationship Specialty Start Date End Date Ziggy Harding MD [address] [place] [id number] PCP - General FAMILY PRACTICE 09/21/18 11/10/19 documented as of this encounter
--- OUTSIDE RECORDS SUMMARY | 2024-10-24 12:00 | XMS_ITS | Encounter Summary ---
Author Organization [facility] Address [facility]6 [facility] [place], [place] [address] [place] [address] Care Team Providers Care Mental Health Program Manager Name Role Phone Ziggy Harding MD Primary Care Provider [phone] Encounter Details Date Type Department Care Team (Latest Contact Info) Description 06/17/2019 Scan HEALTH INFO SRVCS Scanned, Documents Social [...] st Contact Info) Description 11/02/2024 8:00 AM CHARGE MASTER ANALYST Office Visit [facility] [address] [place] [address] Ella Hodge FNP [address] [place] [address] 01/19/2025 11:00 AM CDT Office Visit [facility] Pul[facility] - [place] [address] [place] [address] Stanley Jim MD [address] [place] [address] 06/23/2025 8:20 AM CDT Office Visit [facility] 201 [facility] [place] [address] Ella Hodge [facility] [address] [place] [address] documented as of this encounter Visit Diagnoses Not on filedocumented in this encounter Care Teams Mental Health Program Manager Relationship Specialty Start Date End Date Ziggy Harding MD [address] [place] [address] PCP - General FAMILY PRACTICE 09/21/18 11/10/19 documented as of this encounter
--- OUTSIDE RECORDS SUMMARY | 2024-10-24 12:00 | XMS_ITS | Encounter Summary ---
Author Organization [facility] Address [facility]. [place], [place] [address] [place] [address] Care Team Providers Care Jig And Fixture Maker Name Role Phone Ziggy Harding MD Primary Care Provider [phone] Reason for Referral * Consultation/Treatment (Routine) - Closed Specialty Diagnoses / Procedures Referred By Chet nicholson Referred To Contact ORTHOPAEDICS Diagnoses Chronic pain of right hip Ella Hodge FNP [address] [place] [address] [place] [address] Phone: tel: fax: Cornelia Ortega NP-C Referral ID Status Reason Start Date Expiration Date V isits Requested Visits Authorized [id number] Closed Specialty Services 01/19/2019 02/20/2020 100 100 Reason for Visit * Reason Comments Hip Pain Right side hip pain noted for long time . Patient notes fall 2 years ago. Notes pain when getting up from sitting. Has been using aleve for pain. Abdominal Pain Noted after eating s upper. Encounter Details Date Type Department Care Team (Late st Contact Info) Description 01/19/2019 1:40 PM CDT Office Visit [facility] [address] [place] [address] Ella Hodge FNP [facility] [place] [address] Hip Pain (Right side hip pain noted for long time . Patient notes fall 2 years ago. Notes pain when getting up from sitting. Has been using aleve for pain. ); Abdominal Pain (Noted after eating supper. ) Social History Tobacco Use Types Packs/Day [...] Sign Reading Time Taken Comments Blood Pressure 130/80 01/19/2019 1:38 PM CDT Pulse 80 01/19/2019 1:38 PM CDT Temperature 37.2 ??C (98.9 ??F) 01/19/2019 1:38 PM CD T Respiratory Rate 16 01/19/2019 1:38 PM CDT Oxygen Saturation - - Inhaled Oxygen Concentration - - Weight 66.2 kg (146 lb) 01/19/2019 1:38 PM CDT Height 152.4 cm (5') 01/19/2019 1:38 PM CDT Body Mass Index 28.51 01/19/2019 1:38 PM CDT documented in this encounter Patient Instructions * Patient Instructions* THEODORA Head - 01/19/2019 1:40 PM CDT Call with an update on heartburn in 2-3 weeks. Referral center will call with appointment time and date in 7-10 days. documented in this encounter Progress Notes * THEODORA Head - 01/19/2019 1:40 PM CDT Love Catherine is a 73-year-old female patient. Reason for Visit: Hip Pain (Right side hip pain noted for long time . Patient notes fall 2 years ago. Notes pain when getting up from sitting. Has been using aleve for pain. ) and Abdominal Pain (Noted after eating supper. ) History of Present Illness: Follow up for right hip pain for the past 2+ years. Love completed a round of physical therapy several weeks ago and states the pain did improve initially but has since returned. Xray completed inJanuary showed : Stable moderate loss of joint space with moderate osteophyte. Mild adjacent sclerosis. Mild subchondral cyst formation about the posterior acetabulum as was also seen on prior CT. Love states her pain comes and goes, some days are better than others. The pain is worse when going from sitting to standing. She uses Aleve as needed. Also reports ongoing issues with heartburn. She has been taking ranitidine 150mg every night but isstill having breakthrough heartburn 2-3 times per week that requires Tums to resolve. She is unsureof the trigger foods, the heartburn always occurs in the evening time. Love submits HF results. She states bone density and mammogram are up to date. Colonoscopy with updated in November 2017. ROS: Review of Systems Constitutional: Negative. Cardiovascular: Negative. Gastrointestinal: Positive for heartburn. Musculoskeletal: Positive for joint pain (right hip). Psychiatric/Behavioral: The patient does not have insomnia. Medications: Current Outpatient Medications: ??? hjszqrymkp-fiaerxrowiigt-lloxjcpf 50-325-40 MG tablet, Take 1 tablet by mouth every 4 (four) hours as needed., Disp: , Rfl: ??? fexofenadine (ARELI ALLERGY) 180 MG tablet, Take 1 tablet by mouth daily., Disp: , Rfl: ??? montelukast 10 MG tablet, Take 1 tablet (10 mg total) by mouth daily., Disp: 90 tablet, Rfl: 0 ??? Multiple Minerals-Vitamins ([employer] [place] CITRATE+D/MAGNESIUM) Tab, Take 1 tablet by mouth daily., Disp: , Rfl: ??? Naproxen Sodium (ALEVE) 220 MG Cap, Take by mouth as needed., Disp: , Rfl: ??? Polyvinyl Alcohol-Povidone (FRESHKOTE OP), Apply to eye 4 (four) times daily., Disp: , Rfl: ??? pravastatin (PRAVACHOL) 20 MG tablet, Take 1 tablet (20 mg total) by mouth daily., Disp: 30 tablet, Rfl: 0 ??? ranitidine 300 MG tablet, Take 1 tablet daily at bedtime., Disp: 90 tablet, Rfl: 0 No Known Allergies Past Medical History: Diagnosis Date ??? Allergic rhinitis ??? Heartburn ??? Hip pain Past Surgical History: Procedure Laterality Date ??? BREAST BIOPSY ??? COLONOSCOPY Social History Socioeconomic History ??? Marital status: [...] file Gets together: Not on file Attends adventism service: Not on file Active member of [...] History Narrative ??? Not on file Family History Problem Relation Name Age of Onset ??? Other (TIA) Mother ??? Colon Cancer Brother Family Status Relation Name Status ??? Mother (Not Specified) ??? Brother (Not Specified) Filed Vitals: 01/19/19 1338 BP: 130/80 Pulse: 80 Resp: 16 Temp: 98.9 ??F (37.2 ??C) TempSrc: Temporal Weight: 66.2 kg (146 lb) Height: 5' (1.524 m) Physical Exam: Physical Exam Constitutional: She is oriented to person, place, and time. She appears well-developed. HENT: Head: Normocephalic. Cardiovascular: Normal rate, regular rhythm and normal heart sounds. Pulmonary/Chest: Effort normal and breath sounds normal. Neurological: She is alert and oriented to person, place, and time. Skin: Skin is warm and dry. Psychiatric: She has a normal mood and affect. Her behavior is normal. Judgment and thought contentnormal. Labs: Diagnoses/Impression: Encounter Diagnose(s) ICD-10-CM ICD-9-CM SNOMED CT(R) 1. Chronic pain of right hip M25.551 719.45 HIP PAIN AMB REFERRAL TO ORTHOPEDICS G89.29 338.29 2. Heartburn R12 787.1 HEARTBURN ranitidine 300 MG tablet 3. Mixed hyperlipidemia E78.2 272.2 MIXED HYPERLIPIDEMIA Recommendations and Plan: Patient Instructions Call with an update on heartburn in 2-3 weeks. Referral center will call with appointment time and date in 7-10 days. THEODORA HEAD Cosigned by Ziggy Harding MD at 01/20/2019 9:18 AM CDT documented in this encounter Plan of Treatment Upcoming Encounters Date Type Department Care Team (Late st Contact Info) Description 11/02/2024 8:00 AM IMPREGNATING TANK OPERATOR Office Visit [address] [place] [address] Ella Hodge FNP [address] [place] [address] [place] [address] 01/19/2025 11:00 AM CDT Office Visit [facility] - [address] [place] [address] Stanley Jim MD [address] [place] [address] 06/23/2025 8:20 AM CDT Office Visit [address] [place] [address] Ella Hodge [facility] [address] [place], [place] [id number] Scheduled Referrals Name Type Priority Associated Diagnoses Orde r Schedule Ambulatory referral to Orthopedics Referral Routine Chronic pain of right hip Ordered: 01/19/2019 documented as of this encounter Visit Diagnoses Diagnosis Chronic pain of right hip- Primary Heartburn Mixed hyperlipidemia documented in this encounter Care Teams Jig And Fixture Maker Relationship Specialty Start Date End Date Ziggy Harding MD [address] [place] [address] PCP - General FAMILY PRACTICE 09/21/18 11/10/19 documented as of this encounter
--- OUTSIDE RECORDS SUMMARY | 2024-10-24 12:00 | XMS_ITS | Encounter Summary ---
Author Organization [facility] Address [address] [place] [address]. [place], [place] [address] [place] [address] Care Team Providers Care Road Gang Supervisor Name Role Phone Ziggy Harding MD Primary Care Provider Encounter Details Date Type Department Care Team (Late st Contact Info) Description 10/21/2019 Orders Only Critical access hospital [address] [place] [address] Chiqui Michel, RN Social History Tobacco Use [...] st Contact Info) Description 11/02/2024 8:00 AM INTERNAL CONTROLS SPECIALIST Office Visit [facility] hospital [address] [place] [id number] Ella Hodge FNP [address] [place] [address] 01/19/2025 11:00 AM CDT Office Visit [facility] - [place] [address] [place] [address] Stanley Jim MD [address] [address] 06/23/2025 8:20 AM CDT Office Visit [facility] access hospital [address] [place] [address] Ella Hodge [facility] [address] [place] [address] documented as of this encounter Visit Diagnoses Diagnosis Benign essential hypertension Essential hypertension, benign documented in this encounter Care Teams Road Gang Supervisor Relationship Specialty Start Date End Date Ziggy Harding MD [address] [place] [address] PCP - General FAMILY PRACTICE 09/21/18 11/10/19 documented as of this encounter
--- OUTSIDE RECORDS SUMMARY | 2024-10-24 12:00 | XMS_ITS | Encounter Summary ---
Author Organization [facility] Address [address] [facility]. [place], [place] [id number] [place] [address] Care Team Providers Care Laboratory Equipment Cleaner Name Role Phone Ziggy Harding MD Primary Care Provider [phone] Reason for Visit * Reason Comments Hip Pain Hip pain right , has see ortho and will have hip repalacement by Dr natasha Rausch . Pt has been taking mobic 7.5mg daily and recently started taking BID. Pt needs refill of 7.5mg BID. Ortho stated this was ok to take but wanted PCP to manage, BAM PCP but is out of office. Encounter Details Date Type Department Care Team (Late st Contact Info) Description 09/24/2019 9:00 AM REBAR WORKER Office Visit [facility] [address] [place], [place] [id number] Justyna Chan V, [facility] [address] [place] [address] Hip Pain (Hip pain right , has see ortho and will have hip repalacement by Dr natasha Rausch . Pt has been taking mobic 7.5mg daily and recently started taking BID. Pt needs refill of 7.5mg BID. Ortho stated this was ok to take but wanted PCP to manage, BAM PCP but is out of office. ) Social History Tobacco Use Types Packs/Day Years Used Date Smoking Tobacco: Never Smokeless Tobacco: Never PHQ-2 Answer Date Recorded PHQ-2 Score 0 09/24/2019 Comments No Sex and Gender Information Value Date Recorded Sex Assigned at Not on file Legal Sex Female 5:51 PM CDT Gender Identity Not on file Sexual Orientation Not on file documented as of this encounter Last Filed Vital Signs Vital Sign Reading Time Taken Comments Blood Pressure 184/100 09/24/2019 9:11 AM REBAR WORKER Pulse 76 09/24/2019 8:57 AM REBAR WORKER Temperature 36.6 ??C (97.9 ??F) 09/24/2019 8:57 AM CS T Respiratory Rate 18 09/24/2019 8:57 AM REBAR WORKER Oxygen Saturation 98% 09/24/2019 8:57 AM REBAR WORKER Inhaled Oxygen Concentration - - Weight 67.8 kg (149 lb 6 oz) 09/24/2019 8:57 AM REBAR WORKER Height 152.4 cm (5') 09/24/2019 8:57 AM REBAR WORKER Body Mass Index 29.17 09/24/2019 8:57 AM REBAR WORKER documented in this encounter Patient Instructions * Patient Instructions* Justyna Stewart V, METAL PRECISION MACHINE ASSEMBLER-BC - 09/24/2019 9:00 AM REBAR WORKER Will order lab work for today to check kidney function Once we get results from the lab we will call you with the results and decide if we can re-order Meloxicam 7.5 mg and start Lisinopril 10 mg daily. As discussed try to limit Meloxicam to once daily at night and use Tylenol 500- 650 mg in the morning Please take blood pressure at home 3-4 times a week and record these numbers to bring back to follow up appointment. Avoid processed/fast food or adding extra salt to diet. Watch intake as this can increase blood pressure Increase fresh fruits, vegetables, and lean meats Cardio exercise at least 30 minutes most days of the week Avoid taking other NSAIDS such as Motrin or Aleve while taking Meloxicam If you begin experiencing symptoms such as burning or gnawing at your stomach, or increased abdominal pain discontinue use of Meloxicam. We would like to see you in 3 weeks around October 15 for follow up on your blood pressure. Please remember to bring your recordings Return for any new or worsening symptoms. You may go online to [email or web address] to sign up to view your health [...] you and others in the communitywe serve. R WORKER R WORKER R WORKER documented in this encounter Progress Notes * JERROD Rosa - 09/24/2019 9:00 AM CSTAddended by: JUSTYNA GARCIA on: 09/24/2019 01:15 PM Modules accepted: Orders R WORKER * JERROD Rosa - 09/24/2019 9:00 AM CST Reason for Visit: Hip Pain (Hip pain right , has see ortho and will have hip repalacement by Dr natasha Rausch . Pt has been taking mobic 7.5mg daily and recently started taking BID. Pt needs refill of 7.5mg BID. Orthostated this was ok to take but wanted PCP to manage, BAM PCP but is out of office. ) History of Present Illness: This is a 73-year-old patient of Dr. Dwyer who presents today with a request to refill her Meloxicam 7.5 mg bid as needed. States that she was originally prescribed this by Ira Ortega SQL DATABASE PROGRAMMER, orthopedics, and has been taking the medication twice a day for right hip pain. Patient is seeing Dr. Stone, Ortho at [facility], and is scheduled to have a right hip replacement on 11/15/19. She reports that she called up to them to have them refill and they requested that it be managed by her PCP. Patient reports that she had previously tried cortisone injections in her hip, but they were unsuccessful at treating her pain. Patient denies any side effects of Meloxicam such as abdominal pain, burning, gnawing, hematochezia, or hematemesis. Upon presentation to the office today patient blood pressure is 220/112. Patient had previous elevated blood pressure reading of 160/60 back in April of this year. She also reports that at other appointments she has had her blood pressure usually has been running in the 160's-170's. Patient denies any symptoms such as visual disturbances, nausea, vomiting. Patient reports occasional headache, but reports hx of migraines and they feel similar to that. Upon recheck her blood pressure was 180/98. She is tearful. ROS: Review of Systems Constitutional: Negative for [...] frequency and urgency. Musculoskeletal: Positive for joint pain. Negative for myalgias. Chronic right hip pain Skin: Negative for rash. Neurological: Positive for headaches (occ monthly. Similar to migraines.). Negative for dizziness. Endo/Heme/Allergies: Negative. Psychiatric/Behavioral: Negative for depression. The patient is not nervous/anxious. Medications: Current Outpatient Medications Medication Sig Dispense Refill ??? gzaymhzfpk-gmfghtxmudgoi-ylslgaug 50-325-40 MG tablet Take 1 tablet by mouth every 4 (four) hours as needed. ??? ipratropium 0.03 % nasal spray 2 sprays by Nasal route every 12 (twelve) hours. ??? lisinopril 10 MG tablet Take 1 tablet (10 [...] Used Substance Use Topics ??? Alcohol use: Not on file ??? Drug use: Not on file Family History Problem Relation [...] has no wheezes. She has no rales. She exhibits no tenderness. Abdominal: Soft. Bowel sounds are normal. She exhibits no distension. There is no tenderness. Musculoskeletal: Normal range of motion. She exhibits no edema, tenderness or deformity. Lymphadenopathy: She has no cervical adenopathy. Neurological: She is alert and oriented to person, place, and time. She displays normal reflexes. No cranial nerve deficit or sensory deficit. She exhibits normal muscle tone. Coordination normal. Skin: Skin is warm and dry. Capillary refill takes less than 2 seconds. No rash noted. She is not diaphoretic. No erythema. No pallor. Psychiatric: She has a normal mood and affect. Her behavior is normal. Judgment and thought contentnormal. Nursing note and vitals reviewed. Filed Vitals: 09/24/19 0857 09/24/19 0911 BP: (!) 220/112 (!) 184/100 Pulse: 76 Resp: 18 Temp: 97.9 ??F (36.6 ??C) SpO2: 98% Weight: 67.8 kg (149 lb 6 oz) Height: 5' (1.524 m) Body mass index is 29.17 kg/m??. No image results found. Diagnoses/Impression: 1. Elevated blood pressure reading in office without diagnosis of hypertension BASIC METABOLIC PANEL lisinopril 10 MG tablet 2. Chronic right hip pain 3. Primary osteoarthritis of right hip meloxicam 7.5 MG tablet Recommendation/Plan: BMP ordered prior to starting lisinopril and refilling Meloxicam. Will order lab work for today to check kidney function. Please go to hospital today to be registered to have this drawn Once we get results from the lab we will call you with the results and decide if we can re-order Meloxicam 7.5 mg and start Lisinopril 10 mg daily. As discussed try to limit Meloxicam to once daily at night and use Tylenol 500- 650 mg in the morning Please take blood pressure at home 3-4 times a week and record these numbers to bring back to follow up appointment. Avoid processed/fast food or adding extra salt to diet. Watch intake as this can increase blood pressure Increase fresh fruits, vegetables, and lean meats Cardio exercise at least 30 minutes most days of the week Avoid taking other NSAIDS such as Motrin or Aleve while taking Meloxicam If you begin experiencing symptoms such as burning or gnawing at your stomach, or increased abdominal pain discontinue use of Meloxicam. We would like to see you in 3 weeks around October 15 for follow up on your blood pressure. Please remember to bring your recordings Return for any new or worsening symptoms. You may go online to [email or web address] to sign up to view your health [...] you and others in the communitywe serve. BMP reviewed and normal. Medications ordered. Orders Placed This Encounter ??? BASIC METABOLIC PANEL Standing Status: Future Number of Occurrences: 1 Standing Expiration Date: 09/25/2019 JERROD Anaya Cosigned by Carrie Tompkins DO at 10/04/2019 4:09 PM REBAR WORKER R WORKER R WORKER R WORKER * JERROD Rosa - 09/24/2019 9:00 AM CST Normal BMP. Meloxicam and lisinopril ordered. Patient was contacted. R WORKER documented in this encounter Plan of Treatment Upcoming Encounters Date Type Department Care Team (Late st Contact Info) Description 11/02/2024 8:00 AM REBAR WORKER Office Visit [address] [place] [address] Ella Hodge [address] [place] [address] 01/19/2025 11:00 AM CDT Office Visit [facility] Pulmonology Specialty Clinic - [address] [place] [address] Stanley Jim MD [address] [place] [address] 06/23/2025 8:20 AM CDT Office Visit [facility] [address] [place] [address] Ella Hodge [facility] [address] [place] [address] documented as of this encounter Procedures Procedure Name Priority Date/Time Associated Diagnosis Comments BASIC METABOLIC PANEL Routine 09/24/2019 10:25 AM REBAR WORKER Elevated blood pressure reading in office without diagnosis of hypertension documented in this encounter Results * BASIC METABOLIC PANEL (09/24/2019 10:25 AM REBAR WORKER) GLUCOSE 97 70 - 99 mg/dL [facility] SODIUM S/P/B 141 136 - 145 mmol/L [facility] POTASSIUM S/P/B 4.7 3.5 - 5.1 mmol/L [facility] CHLORIDE S/P/B 105 100 - 108 mmol/L [facility] CO2 26 21 - 32 mmol/L [facility] BUN 16 7 - 18 mg/dL [facility] CREATININE S/P/B 0.7 0.5 - 1.2 mg/dL [facility] CALCIUM S/P/B 9.3 8.5 - 10.1 mg/dL [facility] PATIENT'S AGE 73 YEARS [facility] EGFR NON-AFR. AMER. 87 ml/min [facility] EGFR AFR. AMER. 105 ml/min [facility] ANION GAP 15 8 - 20 [facility] Comment: ? GFR INTERPRETATION ?Age(years) ?Average Est GFR by age ?20-29 ? 116 ml/min/1.73m^2 ?30-39 ? 107 ml/min/1.73m^2 ?40-49 ? 99 ??ml/min/1.73m^2 ?50-59 ? 93 ??ml/min/1.73m^2 ?60-69 ? 85 ??ml/min/1.73m^2 ?70+ ? 75 ??ml/min/1.73m^2 ?The MDRD Study equation has not been validated in children (<18 years) ? women, the elderly (>70 years), racial or ethnic subgroubs ?other than Caucasians and Americans. eGFR calculated from the ?MDRD equation was validated in outpatients with stable or slowly ?declining renal function. ??It may not be applicable to acutely ill ?inpatients with rapidly changing renal function or fluid imbalance. 09/24/2019 10:2 5 AM REBAR WORKER 09/24/2019 10:25 AM REBAR WORKER us Justyna Chan V, METAL PRECISION MACHINE ASSEMBLER-BC LABORATORY Final R esult [facility] [address] [place] [address] documented in this encounter Visit Diagnoses Diagnosis Elevated blood pressure reading in office without diagnosis of hypertension- Primary Chronic right hip pain Pain in joint, pelvic region and thigh Primary osteoarthritis of right hip Primary localized osteoarthrosis, pelvic region and thigh documented in this encounter Care Teams Laboratory Equipment Cleaner Relationship Specialty Start Date End Date Ziggy Harding MD [address] [place] [id number] PCP - General FAMILY PRACTICE 09/21/18 11/10/19 documented as of this encounter
--- OUTSIDE RECORDS SUMMARY | 2024-10-24 12:00 | XMS_ITS | Encounter Summary ---
Author Organization [facility] Address [address] [facility] [place] [address] [place] [address] Care Team Providers Care Moisture Meter Reader Name Role Phone Ziggy Harding MD Primary Care Provider [phone] Reason for Visit * Reason Comments Follow Up F/U BP Check and pt brought home BP readings. Refill Request needs refill meloxic am and Lisinopril Encounter Details Date Type Department Care Team (Late st Contact Info) Description 10/14/2019 9:00 AM SERVICE STATION CONSOLE OPERATOR Office Visit [facility] [address] [place], [place] [id number] Demetrio Shore MD Jarrett, Angela V, [facility] [address] [place], [place] [id number] Follow Up (F/U BP Check and pt brought home BP readings.); Refill Request (needs refill meloxicam and Lisinopril) Social History Tobacco Use Types Packs/Day Years [...] Sign Reading Time Taken Comments Blood Pressure 136/78 10/14/2019 8:57 AM SERVICE STATION CONSOLE OPERATOR Pulse 85 10/14/2019 8:57 AM SERVICE STATION CONSOLE OPERATOR Temperature 36.8 ??C (98.3 ??F) 10/14/2019 8:57 AM CS T Respiratory Rate 18 10/14/2019 8:57 AM SERVICE STATION CONSOLE OPERATOR Oxygen Saturation 94% 10/14/2019 8:57 AM SERVICE STATION CONSOLE OPERATOR Inhaled Oxygen Concentration - - Weight 66.5 kg (146 lb 8 oz) 10/14/2019 8:57 AM SERVICE STATION CONSOLE OPERATOR Height 152.4 cm (5') 10/14/2019 8:57 AM SERVICE STATION CONSOLE OPERATOR Body Mass Index 28.61 10/14/2019 8:57 AM SERVICE STATION CONSOLE OPERATOR documented in this encounter Patient Instructions * Patient Instructions* JERROD Rosa - 10/14/2019 9:00 AM SERVICE STATION CONSOLE OPERATOR Increase lisinopril to 20 mg daily. Have BMP drawn the week of November 01 before you see me. Continue to monitor and limit sodium intake Continue to monitor your blood pressures and record for us. Please bring your readings with you to your next visit. Continue Tylenol arthritis in the morning and meloxicam at bedtime. Take with food. Check with yoursurgeon to see when you need to discontinue meloxicam prior to surgery. Return for any new or worsening symptoms. You may go online to [email or web address] to sign up to view your health [...] you and others in the communitywe serve. ICE STATION CONSOLE OPERATOR ICE STATION CONSOLE OPERATOR ICE STATION CONSOLE OPERATOR documented in this encounter Progress Notes * Harman العراقي LPN - 10/14/2019 9:00 AM CSTAddended by: HARMAN العراقي on: 11/02/2019 11:27 AM Modules accepted: Orders ICE STATION CONSOLE OPERATOR * JERROD Rosa - 10/14/2019 9:00 AM CST Reason for Visit: Follow Up (F/U BP Check and pt brought home BP readings.) and Refill Request (needs refill meloxicam and Lisinopril) History of Present Illness: 73-year-old female, patient of Dr. Ceja, presents for 3-week follow-up lisinopril 10 mg daily. I saw the patient for the first time on 09/24/19 for chronic right hip pain and wanting a refill on Meloxicam 7.5 mg bid. At that appointment we noted her blood pressure to be elevated (184/100) and she had also been getting elevated blood pressure readings at home. We started xcejinkpvq53 mg daily. She reports she is doing well with this medication. She did bring a list of her blood pressure readings along with her today. Readings have been averaging 163-134 over 60s and 70s. Patient reports she is feeling pretty good on this medication. She denies lightheadedness, dizziness, chest pain or shortness of breath. She has been taking meloxicam 7.5 mg in the evening and using Tylenol arthritis in the morning. Shereports this is controlling her pain. She does see Ortho tomorrow and will follow back up with me on November 05 for pre-op physical. She believes her surgery is now scheduled for November 17. She willcheck with her orthopedic surgeon on when she should stop her meloxicam prior to surgery. ROS: Review of Systems Constitutional: Negative for chills and fever. HENT: Negative for congestion, ear pain, sinus pain and sore throat. Eyes: Negative for blurred vision, pain and discharge. Respiratory: Negative for cough, shortness of breath and wheezing. Cardiovascular: Positive for leg swelling (Small amount noted bilaterally. Right usually greater than left.). Negative for chest pain, palpitations and orthopnea. Gastrointestinal: Negative for abdominal pain, diarrhea, nausea and vomiting. Genitourinary: Negative for dysuria, frequency and urgency. Musculoskeletal: Positive for joint pain (chronic right hip pain). Negative for myalgias. Skin: Negative for rash. Neurological: Negative for dizziness. Endo/Heme/Allergies: Negative. Psychiatric/Behavioral: Negative for depression. The patient is not nervous/anxious. Medications: Current Outpatient Medications Medication Sig Dispense Refill ??? vfdutmxukq-mqgtzaeaxpfbc-rzjyagud 50-325-40 MG tablet Take 1 tablet by mouth every 4 (four) hours as needed. ??? ipratropium 0.03 % nasal spray 2 sprays by Nasal route every 12 (twelve) hours. ??? lisinopril 10 MG tablet Take 2 tablets (20 mg total) by mouth daily. 30 [...] discharge. Left eye exhibits no discharge. No scleral icterus. Neck: Normal range of motion. Neck supple. [...] has no rales. She exhibits no tenderness. Musculoskeletal: Normal range of motion. She exhibits edema (Trace bilateral lower extremity pitting edema. Noted around sock line.). She exhibits no tenderness or deformity. Lymphadenopathy: She has no cervical adenopathy. Neurological: She is alert and oriented to person, place, and time. She displays normal reflexes. No cranial nerve deficit or sensory deficit. She exhibits normal muscle tone. Coordination normal. Skin: Skin is warm and dry. Capillary refill takes less than 2 seconds. No rash noted. She is not diaphoretic. Psychiatric: She has a normal mood and affect. Her behavior is normal. Judgment and thought contentnormal. Nursing note and vitals reviewed. Filed Vitals: 10/14/19 0857 BP: 136/78 Pulse: 85 Resp: 18 Temp: 98.3 ??F (36.8 ??C) SpO2: 94% Weight: 66.5 kg (146 lb 8 oz) Height: 5' (1.524 m) Body mass index is 28.61 kg/m??. No image results found. Diagnoses/Impression: 1. Encounter for follow-up for hypertension 2. Benign essential hypertension lisinopril 10 MG tablet BASIC METABOLIC PANEL 3. Primary osteoarthritis of right hip meloxicam 7.5 MG tablet Recommendation/Plan: Increase lisinopril to 20 mg daily. Have BMP drawn the week of November 01 before you see me. Continue to monitor and limit sodium intake Continue to monitor your blood pressures and record for us. Please bring your readings with you to your next visit. Continue Tylenol arthritis in the morning and meloxicam at bedtime. Take with food. Check with yoursurgeon to see when you need to discontinue meloxicam prior to surgery. Return for any new or worsening symptoms. You may go online to [email or web address] to sign up to view your health [...] you and others in the communitywe serve. Orders Placed This Encounter ??? BASIC METABOLIC PANEL Standing Status: Future Number of Occurrences: 1 Standing Expiration Date: 10/13/2020 ??? meloxicam 7.5 MG tablet Sig: Take 1 tablet (7.5 mg total) by mouth daily as needed for Pain. Dispense: 30 tablet Refill: 0 ??? lisinopril 10 MG tablet Sig: Take 2 tablets (20 mg total) by mouth daily. Dispense: 30 tablet Refill: 0 JERROD Anaya ICE STATION CONSOLE OPERATOR * JERROD Rosa - 10/14/2019 9:00 AM CST BUN slightly increased from previous. Lets repeat BMP again in 6 weeks. ICE STATION CONSOLE OPERATOR * Harman العراقي LPN - 10/14/2019 9:00 AM CST Pt aware of same and order made and scanned to [facility]. ICE STATION CONSOLE OPERATOR * JERROD Rosa - 10/14/2019 9:00 AM CST Normal kidney function on 11/26/2019 ICE STATION CONSOLE OPERATOR documented in this encounter Plan of Treatment Upcoming Encounters Date Type Department Care Team (Late st Contact Info) Description 11/02/2024 8:00 AM SERVICE STATION CONSOLE OPERATOR Office Visit [address] [place] [address] Ella Hodge [address] [place] [address] 01/19/2025 11:00 AM CDT Office Visit [facility] [address] [place] [address] Stanley Jim MD [address] [place] [address] 06/23/2025 8:20 AM CDT Office Visit [address] [place] [address] Ella Hodge [address] [place] [address] documented as of this encounter Procedures Procedure Name Priority Date/Time Associated Diagnosis Comments BASIC METABOLIC PANEL Routine 11/26/2019 2:12 PM SERVICE STATION CONSOLE OPERATOR Encounter for follow-up for hypertension BASIC METABOLIC PANEL Routine 11/01/2019 7:56 AM SERVICE STATION CONSOLE OPERATOR Benign essential hypertension documented in this encounter Results * BASIC METABOLIC PANEL (11/26/2019 2:12 PM SERVICE STATION CONSOLE OPERATOR) [facility] GLUCOSE 94 70 - 99 mg/dL [facility] SODIUM S/P/B 141 136 - 145 mmol/L [facility] POTASSIUM S/P/B 4.5 3.5 - 5.1 mmol/L [facility] CHLORIDE S/P/B 105 100 - 108 mmol/L [facility] CO2 26 21 - 32 mmol/L [facility] BUN 15 7 - 18 mg/dL [facility] CREATININE S/P/B 0.8 0.5 - 1.2 mg/dL [facility] CALCIUM S/P/B 9.5 8.5 - 10.1 mg/dL [facility] PATIENT'S AGE 74 YEARS [facility] EGFR NON-AFR. AMER. 74 ml/min [facility] EGFR AFR. AMER. 90 ml/min [facility] ANION GAP 14 8 - 20 [facility] Comment: ? GFR INTERPRETATION ?Age(years) ?Average Est [...] rapidly changing renal function or fluid imbalance. 11/26/2019 2:12 PM SERVICE STATION CONSOLE OPERATOR 11/26/2019 3:55 PM SERVICE STATION CONSOLE OPERATOR us Justyna Chan V, CLERICAL PROOFREADER- LABORATORY Final R esult [address] [address] * (ABNORMAL) BASIC METABOLIC PANEL (11/01/2019 7:56 AM SERVICE STATION CONSOLE OPERATOR) GLUCOSE 108(H) 70 - 99 mg/dL [facility] SODIUM S/P/B 141 136 - 145 mmol/L [facility] POTASSIUM S/P/B 4.2 3.5 - 5.1 mmol/L [facility] CHLORIDE S/P/B 105 100 - 108 mmol/L [facility] CO2 25 21 - 32 mmol/L [facility] BUN 24(H) 7 - 18 mg/dL [facility] CREATININE S/P/B 0.9 0.5 - 1.2 mg/dL [facility] CALCIUM S/P/B 9.0 8.5 - 10.1 mg/dL [facility] [place] PATIENT'S AGE 73 YEARS [facility] [place] EGFR NON-AFR. AMER. 65 ml/min [facility] [place] EGFR AFR. AMER. 78 ml/min [facility] [place] ANION GAP 16 8 - 20 [facility] Comment: ? GFR INTERPRETATION ?Age(years) ?Average Est [...] rapidly changing renal function or fluid imbalance. 11/01/2019 7:56 AM SERVICE STATION CONSOLE OPERATOR 11/01/2019 7:57 AM SERVICE STATION CONSOLE OPERATOR us Justyna Chan V, [facility]- LABORATORY Final R esult [facility]-[address] [address] documented in this encounter Visit Diagnoses Diagnosis Encounter for follow-up for hypertension- Primary Benign essential hypertension Essential hypertension, benign Primary osteoarthritis of right hip Primary localized osteoarthrosis, pelvic region and thigh documented in this encounter Care Teams Moisture Meter Reader Relationship Specialty Start Date End Date Ziggy Harding MD [address] [place] [address] [place] [address] PCP - General FAMILY PRACTICE 09/21/18 11/10/19 documented as of this encounter
--- OUTSIDE RECORDS SUMMARY | 2024-10-24 12:00 | XMS_ITS | Encounter Summary ---
Author Organization [facility] Address [address] [place] [address]. [place], [place] [id number] [place] [address] Care Team Providers Care Document Imaging Manager Name Role Phone Ziggy Harding MD Primary Care Provider [phone] Reason for Visit * Reason Comments Lab (SCAN) [facility] Encounter Details Date Type Department Care Team (Late st Contact Info) Description 01/08/2019 Scan HEALTH INFO SRVCS Scanned, Documents Lab (SCAN) ([facility]) Social History Tobacco Use Types Packs/Day Years [...] st Contact Info) Description 11/02/2024 8:00 AM STAMPS OR COINS SALESPERSON Office Visit On license of [facility] [address] [place] [address] Ella Hodge FNP [address] [place] [address] 01/19/2025 11:00 AM CDT Office Visit [facility] [address] [place] [address] Stanley Jim MD [address] [address] 06/23/2025 8:20 AM CDT Office Visit On license of [facility] [address] [facility] [place] [address] Ella Hodge FNP [address] [place] [address] documented as of this encounter Procedures Procedure Name Priority Date/Time Associated Diagnosis Comments OUTSIDE LAB (SCAN ORDER) Routine 01/08/2019 documented in this encounter Results * OUTSIDE LAB (01/08/2019) 01/08/2019 us Documents Scanned SCANNING Final Result documented in this encounter Visit Diagnoses Not on filedocumented in this encounter Care Teams Document Imaging Manager Relationship Specialty Start Date End Date Ziggy Harding MD [address] [place] [address] PCP - General FAMILY PRACTICE 09/21/18 11/10/19 documented as of this encounter
--- OUTSIDE RECORDS SUMMARY | 2024-10-24 12:00 | XMS_ITS | Encounter Summary ---
Author Organization [facility] Address [address] [place] [address]. [place], [place] [address] [place] [address] Care Team Providers Care Behavioral Interventionist Name Role Phone Ziggy Harding MD Primary Care Provider [phone] Encounter Details Date Type Department Care Team (Latest Contact Info) Description 09/25/2019 Scan HEALTH INFO SRVCS Scanned, Documents Social [...] st Contact Info) Description 11/02/2024 8:00 AM ETHANOL QUALITY LEADER Office Visit [facility] [address] [place] [address] Ella Hodge FNP [address] [place] [address] 01/19/2025 11:00 AM CDT Office Visit [facility] [place] [address] [place] [address] Stanley Jim MD [address] [place] [address] 06/23/2025 8:20 AM CDT Office Visit [facility] [address] [place] [id number] Ella Hodge, [facility] [address] [place] [address] documented as of this encounter Visit Diagnoses Not on filedocumented in this encounter Care Teams Behavioral Interventionist Relationship Specialty Start Date End Date Ziggy Harding MD [facility] [place] [address] PCP - General FAMILY PRACTICE 09/21/18 11/10/19 documented as of this encounter
--- OUTSIDE RECORDS SUMMARY | 2024-10-24 12:00 | XMS_ITS | Encounter Summary ---
Author Organization [facility] Address [facility] [facility]. [place], [place] [address] [place] [address] Care Team Providers Care Pick Up Truck Driver Name Role Phone Ziggy Harding MD Primary Care Provider [phone] Reason for Visit * Reason Comments Poison Monique/ Poison [place]/ Poison [place] las t week- using benadryl itch cream Encounter Details Date Type Department Care Team (Late st Contact Info) Description 04/27/2019 3:40 PM CDT Office Visit [address] [place] [address] Eileen Martínez FNP Poison Monique/ Poison [place]/ Poison [place] (last week- using benadryl itch cream) Social History Tobacco Use Types Packs/Day Years [...] Reading Time Taken Comments Blood Pressure 130/78 04/27/2019 3:45 PM CDT Pulse 68 04/27/2019 3:45 PM CDT Temperature 36.6 ??C (97.8 ??F) 04/27/2019 3:45 PM CD T Respiratory Rate 18 04/27/2019 3:45 PM CDT Oxygen Saturation - - Inhaled Oxygen Concentration - - Weight 67.1 kg (148 lb) 04/27/2019 3:45 PM CDT Height - - Body Mass Index 28.9 04/01/2019 9:57 AM CDT documented in this encounter Patient Instructions * Patient Instructions* THEODORA Hernandez - 04/27/2019 3:40 PM CDT Use steroid cream twice a day for no more than 2 weeks at a time. Can use calamine or benadryl cream or oral antihistamine such as claritin or benadryl. documented in this encounter Progress Notes * THEODORA Hernandez - 04/27/2019 3:40 PM CDT Love is a 73-year-old female patient. Reason for Visit: Poison Monique/ Poison [place]/ Poison [place] (last week- using benadryl itch cream) History of Present Illness: Rash on bilat arms. Worked on [employer] last week 5-6 days ago. Then 4 days ago he broke out in [employer]. It is spreading some, but not too bad. It itches. No fever or chills. Past Medical History: Diagnosis Date ??? Allergic rhinitis ??? Heartburn ??? Hip pain Past Surgical History: Procedure Laterality Date ??? BREAST BIOPSY ??? COLONOSCOPY Medications: Current Outpatient Medications Medication Sig ??? gnanfpcdwa-fvoyjwmoggwds-okvymlvj 50-325-40 MG tablet Take 1 tablet by mouth every 4 (four) hours as needed. ??? fexofenadine (ARELI ALLERGY) 180 MG tablet Take 1 tablet by mouth daily. ??? meloxicam 7.5 MG tablet Take 1 tablet (7.5 mg total) by mouth daily. ??? MONTELUKAST 10 MG tablet TAKE 1 TABLET BY MOUTH EVERY DAY ??? Multiple Minerals-Vitamins ([employer] CITRATE+D/MAGNESIUM) Tab Take 1 tablet by mouth daily. ??? Naproxen Sodium (ALEVE) 220 MG Cap Take by mouth as needed. ??? Polyvinyl Alcohol-Povidone (FRESHKOTE OP) Apply to eye 4 (four) times daily. ??? PRAVASTATIN 20 MG tablet TAKE 1 TABLET BY MOUTH EVERY DAY ??? ranitidine 300 MG tablet Take 1 tablet daily at bedtime. ??? triamcinolone 0.1 % cream Apply topically 2 (two) times daily. No Known Allergies Family History Problem Relation Name Age of Onset ??? Other (TIA) Mother ??? Colon Cancer Brother Family Status Relation Name Status ??? Mother (Not Specified) ??? Brother (Not Specified) Social History: Love reports that she has never smoked. She has never used smokeless tobacco. ROS: Review of Systems Constitutional: Negative for chills, fever and malaise/fatigue. Respiratory: Negative for shortness of breath. Skin: Positive for itching and rash. Neurological: Focal weakness: Rash on bilat arms. Worked on [employer] last week 5-6 days ago. Then 4 days ago he broke out in a rash. It is spreading some, but not too bad. It itches. No fever or chills. Objective: Filed Vitals: 04/27/19 1545 BP: 130/78 Pulse: 68 Resp: 18 Temp: 97.8 ??F (36.6 ??C) Weight: 67.1 kg (148 lb) Body mass index is 28.9 kg/m??. Physical Exam: Const: Alert, in no acute distress, Head: Atraumatic, normocephalic Ears: In tact to conversational voice Nose: External nose appearance WNL Oral Cavity: Lip appearance WNL Respiratory: Breathing unlabored Skin: Warm and dry with good color, bilateral arms with patches of a pink maculopapular rash with occasional vesicles, left antecubital space with a pink confluent macular rash Neuro: Communication ability WNL, alert and oriented x3 Psych: Mood normal, affect appropriate Diagnoses/Impression: Encounter Diagnose(s) ICD-10-CM ICD-9-CM SNOMED CT(R) 1. Allergic contact dermatitis due to plants, except food L23.7 692.6 ALLERGIC CONTACT DERMATITIS CAUSED BY PLANT MATERIAL triamcinolone 0.1 % cream Plan: I discussed with patient that we could do a strong steroid cream or oral prednisone. She prefers totry the cream. She may use OTC Benadryl cream or calamine lotion. She may also use OTC antihistamine such as benadryl or claritin as directed. Do not use steroid creams for more than 2 weeks at a time. RTC if rash persists or worsens. Instructions: Patient Instructions Use steroid cream twice a day for no more than 2 weeks at a time. Can use calamine or benadryl cream or oral antihistamine such as claritin or benadryl. THEODORA HERNANDEZ 04/27/2019 4:15 PM documented in this encounter Plan of Treatment Upcoming Encounters Date Type Department Care Team (Late st Contact Info) Description 11/02/2024 8:00 AM HOSPITAL ACCOUNT LIAISON Office Visit [address] [place] [address] Ella oHdge FNP [address] [facility] [place] [address] 01/19/2025 11:00 AM CDT Office Visit [facility] - [address] [place] [address] Stanley Jim MD [address] [place] [address] 06/23/2025 8:20 AM CDT Office Visit [address] [place] [address] Ella Hodge FNP [address] [facility] [place] [address] documented as of this encounter Visit Diagnoses Diagnosis Allergic contact dermatitis due to plants, except food- Primary Contact dermatitis and other eczema due to plants (except food) documented in this encounter Care Teams Pick Up Truck Driver Relationship Specialty Start Date End Date Ziggy Harding MD [address] [facility] [place] [address] PCP - General FAMILY PRACTICE 09/21/18 11/10/19 documented as of this encounter
--- OUTSIDE RECORDS SUMMARY | 2024-10-24 12:00 | XMS_ITS | Encounter Summary ---
Author Organization [facility] Address [facility] [place], [place] [address] [place] [address] Care Team Providers Care Cost Manager Name Role Phone Ziggy Harding MD Primary Care Provider [phone] Demetrio Shore MD Primary Care Pr ovider Unavailable Encounter Details Date Type Department Care Team (Latest Contact Info) Description 10/11/2019 Scan HEALTH INFO SRVCS Scanned, Documents Social History Tobacco Use Types Packs/Day Years Used Date Smoking Tobacco: Never Smokeless Tobacco: Never AUDIT-C Answer Date Recorded Frequency of Alcohol [...] st Contact Info) Description 11/02/2024 8:00 AM PRODUCTION PLANNING MANAGER Office Visit [facility] [address] [place] [address] Ella Hodge, [facility] [address] [place] [address] 01/19/2025 11:00 AM CDT Office Visit [facility] [place] [address] [facility] [place] [address] Stanley Jmi MD [address] [place] [address] 06/23/2025 8:20 AM CDT Office Visit [facility] [address] [place] [address] Ella Hodge CONSUMER ATTORNEY [address] [place] [address] documented as of this encounter Visit Diagnoses Not on filedocumented in this encounter Care Teams Cost Manager Relationship Specialty Start Date End Date Ziggy Harding MD [address] [facility] [place] [place] [address] PCP - General FAMILY PRACTICE 09/21/18 11/10/19 Demetrio Shore MD [address] [place] [address] PCP - General FAMILY PRACTICE 11/11/19 03/29/23 documented as of this encounter
--- OUTSIDE RECORDS SUMMARY | 2024-10-24 12:00 | XMS_ITS | Encounter Summary ---
Author Organization [facility] Address [facility]6 [facility]. [place], [place] [address] [place] [address] Care Team Providers Care Household Appliance Mechanic Name Role Phone Ziggy Harding MD Primary Care Provider [phone] Reason for Visit * Reason Onset Date Comments Follow Up Call 06/15/2019 Status update; f atigue and blood pressure. Encounter Details Date Type Department Care Team (Late st Contact Info) Description 06/15/2019 Telephone [facility] [address] [place] [address] Ella Hodge, [facility] [address] [place] [address] Follow Up Call (Status update; fatigue and blood pressure. ) Social History Tobacco Use Types Packs/Day Years Used Date Smoking Tobacco: Never Smokeless Tobacco: Never Comments No Sex and Gender Information Value Date Recorded Sex Assigned at Not on file Legal Sex Female 5:51 PM CDT Gender Identity Not on file Sexual Orientation Not on file documented as of this encounter Progress Notes * Yesi Burnett LPN - 06/17/2019 11:12 AM CDT Left message for call back. * Yesi Burnett LPN - 06/15/2019 11:35 AM CDT Left message for call back re; please ask how fatigue and blood pressure was doing? documented in this encounter Plan of Treatment Upcoming Encounters Date Type Department Care Team (Late st Contact Info) Description 11/02/2024 8:00 AM OVERHEAD GARAGE DOOR HANGER Office Visit [address] [place] [address] [facility] [address] [facility] [place] [address] 01/19/2025 11:00 AM CDT Office Visit [facility] Pul[facility]ology Specialty [facility] - [address] [place] [address] Stanley Jim MD [address] [place] [address] 06/23/2025 8:20 AM CDT Office Visit [address] [place] [address] Ella Hodge [address] [place] [address] documented as of this encounter Visit Diagnoses Not on filedocumented in this encounter Care Teams Household Appliance Mechanic Relationship Specialty Start Date End Date Ziggy Harding MD [address] [facility] [place] [address] PCP - General FAMILY PRACTICE 09/21/18 11/10/19 documented as of this encounter
--- OUTSIDE RECORDS SUMMARY | 2024-10-24 12:00 | XMS_ITS | Encounter Summary ---
Author Organization [facility] Address Formerly [facility], [id number] Former[facility]. [place], [place] [address] [place] [address] Care Team Providers Care Microarray Operations Vice President Name Role Phone Ziggy Harding MD Primary Care Provider [phone] Encounter Details Date Type Department Care Team (Latest Contact Info) Description 05/03/2019 Scan HEALTH INFO SRVCS Scanned, Documents Social [...] st Contact Info) Description 11/02/2024 8:00 AM ADMINISTRATIVE ASSISTANT RECEPTIONIST Office Visit [facility] [address] [place] [address] Ella Hodge FNP [address] [place] [address] 01/19/2025 11:00 AM CDT Office Visit [facility] [place] [address] [place] [address] Stanley Jim MD [address] [place] [address] 06/23/2025 8:20 AM CDT Office Visit [facility] [address] [facility] [place] [address] Ella Hodge [facility] [address] [place] [address] documented as of this encounter Visit Diagnoses Not on filedocumented in this encounter Care Teams Microarray Operations Vice President Relationship Specialty Start Date End Date Ziggy Harding MD [address] [place] [address] PCP - General FAMILY PRACTICE 09/21/18 11/10/19 documented as of this encounter
--- OUTSIDE RECORDS SUMMARY | 2024-10-24 12:00 | XMS_ITS | Encounter Summary ---
Author Organization [facility] Address [address] [place] [address]. [place], [place] [address] [place] [address] Care Team Providers Care Marketing Strategy Analyst Name Role Phone Ziggy Harding MD Primary Care Provider Reason for Visit * Reason Comments Dilated Eye Exam (SCAN) Encounter Details Date Type Department Care Team (Late st Contact Info) Description 05/03/2019 Scan HEALTH INFO SRVCS Scanned, Documents Dilated Eye Exam (SCAN) Social History Tobacco Use Types Packs/Day [...] st Contact Info) Description 11/02/2024 8:00 AM INSEMINATOR Office Visit [facility] [address] [place] [address] Ella Hodge FNP [address] [place] [address] 01/19/2025 11:00 AM CDT Office Visit [facility] Pul[facility] Specialty Clinic - [address] [place] [address] Stanley Jim MD [address] [address] 06/23/2025 8:20 AM CDT Office Visit [facility] [address] [facility] [place] [address] Ella Hodge FNP [address] [place] [address] documented as of this encounter Procedures Procedure Name Priority Date/Time Associated Diagnosis Comments DILATED EYE EXAM (SCAN) Routine 05/03/2019 documented in this encounter Results * DILATED EYE EXAM (05/03/2019) us Documents Scanned SCANNING Edited Result - Final documented in this encounter Visit Diagnoses Not on filedocumented in this encounter Care Teams Marketing Strategy Analyst Relationship Specialty Start Date End Date Ziggy Harding MD [address] [place] [address] [place] [address] PCP - General FAMILY PRACTICE 09/21/18 11/10/19 documented as of this encounter
--- OUTSIDE RECORDS SUMMARY | 2024-10-24 12:00 | XMS_ITS | Encounter Summary ---
Author Organization [facility] Address [facility]ly [facility]. [place], [place] [address] [place] [address] Care Team Providers Care Cap And Hat Production Supervisor Name Role Phone Ziggy Harding MD Primary Care Provider [phone] Reason for Visit * Reason Comments Follow Up Rt hip pain * Consultation/Treatment (Routine) - Closed Specialty Diagnoses / Procedures Referred By Chet nicholson Referred To Contact ORTHOPAEDICS Diagnoses Chronic pain of right hip Ella Hodge, [address] [place] [address] Phone: tel: fax: Cornelia Ortega NP-C Referral ID Status Reason Start Date Expiration Date V isits Requested Visits Authorized [id number] Closed Specialty Services 01/19/2019 02/20/2020 100 100 Encounter Details Date Type Department Care Team (Late st Contact Info) Description 07/02/2019 9:20 AM CDT Office Visit [facility] Medical [facility] Multispecialty Care - [address], [address] [place] [address] Cornelia Ortega NP-C Follow Up [...] Sign Reading Time Taken Comments Blood Pressure 122/68 07/02/2019 9:25 AM CDT Pulse 70 07/02/2019 9:25 AM CDT Temperature - - Respiratory Rate - - Oxygen Saturation - - Inhaled Oxygen Concentration - - Weight 67.1 kg (148 lb) 07/02/2019 9:25 AM CDT Height 152.4 cm (5') 07/02/2019 9:25 AM CDT Body Mass Index 28.9 07/02/2019 9:25 AM CDT documented in this encounter Progress Notes * RENEE Lance - 07/02/2019 9:20 AM CDT Images from the original note were not included. Office Progress Note Reason for Visit: Follow Up (Rt hip pain) History of Present Illness: Patient is a pleasant 73-year-old who is here today for follow up right hip pain. Patient did have an intra-articular right hip cortisone injection 4 weeks ago. Patient did keep a pain log and statedthat she had approximately 3 weeks of 90-100% pain relief after the injection. Patient does denies anterior hip pain but states her pain is more lateral and somewhat posterior. She states that she has no pain at rest but pain when getting up from a seated position. She also denies pain when getting out of bed in the morning. Patient has taken meloxicam 7.5 twice daily as needed. Patient denies paresthesia. ?? Patient lives with her spouse. Patient is fairly active in their community ROS: Review of Systems Constitutional: Negative. Respiratory: Negative. Cardiovascular: Negative. Musculoskeletal: Positive for back pain and joint pain. Neurological: Negative. Medications: Outpatient Medications Marked as Taking for the 07/02/19 encounter (Office Visit) with RENEE Lance Medication Sig Dispense Refill ??? [id number]-[id number]-zicqgylo 50-325-40 MG tablet Take 1 tablet by [...] file Gets together: Not on file Attends rastafari service: Not on file Active member of [...] Brother ??? Migraines Daughter VITALS: Filed Vitals: 07/02/19 0925 BP: 122/68 Pulse: 70 Weight: 67.1 kg (148 lb) Height: 5' [...] hip: She exhibits decreased range of motion. Positive pain with ROM. Positive CARSON Neurological: She is alert and oriented to person, place, and time. Gait normal. Skin: Skin is warm and dry. No erythema. Psychiatric: Memory, affect and judgment normal. Vitals reviewed. Imaging: Imaging x-rays were done at [facility]. Patient did not bring the disc again. Reviewed x-ray report. Diagnoses/Impression: 1. Primary osteoarthritis of right hip Recommendations and Plan: Time Spent: Approximately 30 minutes was spent in direct patient consultation and the majority of that time (>50%) was spent on counseling and coordination of care. Discussed in length that pain is from her hip joint as she did receive good benefit after her hip injection. Did discuss ELIUD in the future. Patient wants to continue with meloxicam and consider surgical intervention in the spring. Diagnosis and plan of care was discussed with patient. Patient verbalized understanding of treatment plan. RENEE LANCE 07/04/2019 documented in this encounter Plan of Treatment Upcoming Encounters Date Type Department Care Team (Late st Contact Info) Description 11/02/2024 8:00 AM KST OPERATOR Office Visit [facility] [address] [facility] [place] [address] Ella Hodge FNP [address] [facility] [place] [address] 01/19/2025 11:00 AM CDT Office Visit [facility] Medical [facility] Pulmonology Specialty Clinic - [address] [place] [address] Stanley Jim MD [address] [place] [address] 06/23/2025 8:20 AM CDT Office Visit [facility] [address] [place] [id number] Ella Hodge, [facility] [address] [place] [id number] documented as of this encounter Visit Diagnoses Diagnosis Primary osteoarthritis of right hip- Primary Primary localized osteoarthrosis, pelvic region and thigh documented in this encounter Care Teams Cap And Hat Production Supervisor Relationship Specialty Start Date End Date iZggy Harding MD [address] [place] [address] PCP - General FAMILY PRACTICE 09/21/18 11/10/19 documented as of this encounter
--- OUTSIDE RECORDS SUMMARY | 2024-10-24 12:00 | XMS_ITS | Encounter Summary ---
Author Organization [facility] Address [address] [place] [address]. [place], [place] [address] [place] [address] Care Team Providers Care Track Moving Machine Operator Name Role Phone Ziggy Harding MD Primary Care Provider [phone] Encounter Details Date Type Department Care Team (Late st Contact Info) Description 12/23/2018 Orders Only [address] [address] Edith Trinidad RN Social History Tobacco Use [...] st Contact Info) Description 11/02/2024 8:00 AM INTELLIGENCE CONSULTANT Office Visit [facility] [address] [place] [address] Ella Hodge FNP [address] [place] [address] 01/19/2025 11:00 AM CDT Office Visit [facility] Medical Group Pulmonology Specialty Clinic [facility] [address] [place] [address] Stanley Jim MD [address] [address] 06/23/2025 8:20 AM CDT Office Visit [facility] [address] [facility] [address] [place], [place] [phone] Ella Hodge [facility] [address] [place] [address] documented as of this encounter Visit Diagnoses Diagnosis Hyperlipidemia Other and unspecified hyperlipidemia documented in this encounter Care Teams Track Moving Machine Operator Relationship Specialty Start Date End Date Ziggy Harding MD [address] [place] [address] [place] [address] PCP - General FAMILY PRACTICE 09/21/18 11/10/19 documented as of this encounter
--- OUTSIDE RECORDS SUMMARY | 2024-10-24 12:00 | XMS_ITS | Encounter Summary ---
Author Organization [facility] Address [facility]. [place], [place] [address] [place] [address] Care Team Providers Care Program Manager Environmental Planning Name Role Phone Ziggy Harding MD Primary Care Provider [phone] Reason for Visit * Reason Comments Fatigue Noted since begining of year. Encounter Details Date Type Department Care Team (Late st Contact Info) Description 05/25/2019 3:40 PM CDT Office Visit [address] [address] Ella Hodge, [place] [address] [address] [place], [place] [id number] Fatigue (Noted since begining of year.) Social History Tobacco Use Types Packs/Day Years Used Date Smoking Tobacco: Never Smokeless Tobacco: Never Comments No Sex and Gender Information Value Date Recorded Sex Assigned at Not on file Legal Sex Female 5:51 PM CDT Gender Identity Not on file Sexual Orientation Not on file documented as of this encounter Last Filed Vital Signs Vital Sign Reading Time Taken Comments Blood Pressure 160/60 05/25/2019 3:39 PM CDT Pulse 88 05/25/2019 3:39 PM CDT Temperature 37.1 ??C (98.8 ??F) 05/25/2019 3:39 PM CD T Respiratory Rate 16 05/25/2019 3:39 PM CDT Oxygen Saturation - - Inhaled Oxygen Concentration - - Weight 68 kg (150 lb) 05/25/2019 3:39 PM CDT Height 152.4 cm (5') 05/25/2019 3:39 PM CDT Body Mass Index 29.29 05/25/2019 3:39 PM CDT documented in this encounter Patient Instructions * Patient Instructions* THEODORA Head - 05/25/2019 3:40 PM CDT Follow up with sleep doctor in the near future. Will need to have upper endoscopy with colonoscopy this fall due to persistent acid reflux symptoms--if you need help scheduling this or need consult order please let us know. Stop Yakov, if you need additional allergy symptom relief may add Flonase or Rhinocort both are available over the counter. Check blood pressure 2-3 times per week after sitting with feet flat on ground for at least 5 minutes; Yesi will call to check Bps and status in 3 weeks; please call sooner for questions or concerns. documented in this encounter Progress Notes * THEODORA Head - 05/25/2019 3:40 PM CDT Love Catherine is a 73-year-old female patient. Reason for Visit: Fatigue (Noted since begining of year.) History of Present Illness: Here for fatigue since October. Love states she has been taking 1-2 naps per day and this is very unusual for her. She is somewhat worried she may have depression because she saw a commercial about depression and feels that she fit all of the symptoms; however, her PHQ2 screening is negative. Love states she is not able to complete many of her usual brick maker due to feeling tired. She states once she naps she is able to finish washing dishes or sweeping floors. She has had trouble keeping up with her flower beds. She declined to go on a trip with her friends because she was worried she would not be able to keep up with them due to needing to sleep more. Love does have sleep apnea and does wear her CPAP for part of the night but finds that she takes it off due to comfort--this is not unusual for her. She did attend in the Spring, labs were normal. She has been taking yakov or zyrtec in addition to singulair every day for the past few years to manage chronic sinus symptoms; she states in the past antihistamines did not cause her significant fatigue. Love also states she has been taking meloxicam since March for management of her right hip pain. She stats the hip pain is not really helped by the meloxicam and will be getting a right hip injection on June 04. Love also states she continues to have issues with heartburn, she is taking zantac daily but often has to also take TUMS for relief of heartburn. She is due to update her colonoscopy this fall. ROS: Review of Systems Constitutional: Positive for malaise/fatigue (fatigue). HENT: Negative. Eyes: Negative. Respiratory: Negative. Cardiovascular: Negative. Gastrointestinal: Positive for heartburn. Negative for abdominal pain. Genitourinary: Negative. Musculoskeletal: Positive for joint pain (right hip). Neurological: Negative. Psychiatric/Behavioral: Negative for depression. The patient is not nervous/anxious and does not have insomnia. Medications: Current Outpatient Medications: ??? mtzuslnbqw-humwiygowpwgi-posnqgwv 50-325-40 MG tablet, Take 1 tablet by mouth every 4 (four) hours as needed., Disp: , Rfl: ??? meloxicam 7.5 MG tablet, Take 1 tablet (7.5 mg total) by mouth daily., Disp: 30 tablet, Rfl: 5 ??? MONTELUKAST 10 MG tablet, TAKE 1 TABLET BY MOUTH EVERY DAY, Disp: 90 tablet, Rfl: 0 ??? Polyethyl Glycol-Propyl Glycol (SYSTANE OP), , Disp: , Rfl: ??? PRAVASTATIN 20 MG tablet, TAKE 1 TABLET BY MOUTH EVERY DAY, Disp: 90 tablet, Rfl: 0 ??? ranitidine 300 MG tablet, Take 1 tablet daily at bedtime., Disp: 90 tablet, Rfl: 3 No Known Allergies Past Medical History: Diagnosis [...] (Not Specified) ??? Brother Alive Filed Vitals: 05/25/19 1539 BP: 160/60 Pulse: 88 Resp: 16 Temp: 98.8 ??F (37.1 ??C) TempSrc: Temporal Weight: 68 kg (150 lb) Height: 5' (1.524 m) Body mass index is 29.29 kg/m??. Physical Exam: Physical Exam Constitutional: She appears well-developed. HENT: Head: Normocephalic. Neck: No thyroid mass and no thyromegaly present. Cardiovascular: Normal rate, regular rhythm and normal heart sounds. Pulmonary/Chest: Effort normal and breath sounds normal. Musculoskeletal: Walks with limp to right leg. Neurological: She is alert. Skin: Skin is warm, dry and intact. Psychiatric: She has a normal mood and affect. Her speech is normal and behavior is normal. Judgment and thought content normal. Cognition and memory are normal. Good eye contact with conversation, tearful at times. Diagnoses/Impression: Encounter Diagnose(s) ICD-10-CM ICD-9-CM SNOMED CT(R) 1. Fatigue, unspecified type R53.83 780.79 FATIGUE THYROID STIM HORMONE, TSH COMPREHENSIVE METABOLIC PANEL CBC W/DIFF AUTOMATED THYROID STIM HORMONE, TSH COMPREHENSIVE METABOLIC PANEL CBC W/DIFF AUTOMATED 2. Vitamin D deficiency E55.9 268.9 VITAMIN D DEFICIENCY VITAMIN D, 25 OH VITAMIN D, 25 OH 3. Obstructive sleep apnea G47.33 327.23 OBSTRUCTIVE SLEEP APNEA SYNDROME 4. Chronic rhinitis J31.0 472.0 CHRONIC RHINITIS 5. Elevated blood pressure reading R03.0 796.2 ELEVATED BLOOD PRESSURE 6. Heart burn R12 787.1 HEARTBURN Recommendations and Plan: Patient Instructions Follow up with sleep doctor in the near future. Will need to have upper endoscopy with colonoscopy this fall due to persistent acid reflux symptoms--if you need help scheduling this or need consult order please let us know. Stop Yakov, if you need additional allergy symptom relief may add Flonase or Rhinocort both are available over the counter. Check blood pressure 2-3 times per week after sitting with feet flat on ground for at least 5 minutes; Yesi will call to check Bps and status in 3 weeks; please call sooner for questions or concerns. THEODORA HEAD Cosigned by Ziggy Harding MD at 05/26/2019 7:59 AM CDT * Yesi Burnett LPN - 05/25/2019 3:40 PM CDT Patient told. Notes fatigue is 80%-90% better. No longer having to take naps during the day. Has not made appoitnemtn with sleep doctor. Patient going to call this week. Patient aware to call if needs help with appointment.Order for iron panel sent to [facility]. * Renetta Gimenez LPN - 05/25/2019 3:40 PM CDT Mess. Left for pt. To call office. Lab called and states that iron panel could not be ran d/t not enough blood. Pt. Must go to [facility] and have Iron panel drawn. documented in this encounter Plan of Treatment Upcoming Encounters Date Type Department Care Team (Late st Contact Info) Description 11/02/2024 8:00 AM PATIENT NAVIGATOR Office Visit [facility] [address] [place] [address] Ella Hodge FNP [address] [place] [address] 01/19/2025 11:00 AM CDT Office Visit [facility] [place] [address] [place] [address] Stanley Jim MD [address] [address] 06/23/2025 8:20 AM CDT Office Visit [facility] [address] [facility] [address] [place], [place] [phone] Ella Hodge FNP [address] [place] [address] documented as of this encounter Procedures Procedure Name Priority Date/Time Associated Diagnosis Comments COMPREHENSIVE METABOLIC PANEL Routine 05/31/2019 10:57 AM CDT Fatigue, unspecified type CBC W/DIFF AUTOMATED Routine 05/31/2019 10:57 AM CDT Fatigue, unspecified type THYROID STIM HORMONE TSH Routine 05/31/2019 10:57 AM CDT Fatigue, unspecified type VITAMIN D, 25 OH Routine 05/31/2019 10:5 7 AM CDT Vitamin D deficiency documented in this encounter Results * VITAMIN D, 25 OH (05/31/2019 10:57 AM CDT) VITAMIN D 25 HYDROXY S/P/B 32 30 - 100 ng/mL [facility] 05/31/2019 10:5 7 AM CDT 05/31/2019 10:57 AM CDT us [facility] Final Res ult [facility] [address] [place] [address] * (ABNORMAL) CBC W/DIFF AUTOMATED (05/31/2019 10:57 AM CDT) WBC 5.8 4.5 - 11.0 cmm [facility] RBC 3.9(L) 4.0 - 5.2 M/cumm [facility] HGB 11.6(L) 12.0 - 16.0 g/dL [facility] HCT 36.0 36.0 - 46.0 % [facility] MCV 92.8 80.0 - 100 fL [facility] MCH 29.9 26.0 - 34.0 pg [facility] MCHC 32.2 31.0 - 37.0 g/dL [facility] RDW 13.1 11.6 - 14.8 % [facility] PLT 254 140 - 415 cmm [facility] MPV 9 7 - 12 fl [facility] ABS. NEUTROPHILS 2.64 1.50 - 8.00 x10^3 [facility] ABS. LYMPHOCYTES 2.23 0.21 - 5.42 x10^3 [facility] ABS. MONOCYTES 0.81 0.04 - 1.37 x10^3 [facility] ABS. EOSINOPHILS 0.12 0.00 - 0.68 x10^3 [facility] ABS. BASOPHILS 0.03 0.00 - 0.08 x10^3 [facility] ABS. IMMATURE GRANULOCYTES 0.01 0.00 - 0.06 x10^3 [facility] NEUTROPHILS % 45.1 40.0 - 74.0 % [facility] LYMPHOCYTES % 38.2 14.0 - 46.0 % [facility] MONOCYTES % 13.9(H) 4.0 - 13.0 % [facility] EOSINOPHILS % 2.1 0.0 - 7.0 % [facility] BASOPHILS % 0.5 0.0 - 3.0 % [facility] IMMATURE GRANS % 0.20 0.00 - 0.43 % [facility] MANUAL DIFFERENTIAL NOT INDICATED [facility] WBC MORPHOLOGY NOT INDICATED H [facility] RBC MORPHOLOGY NOT INDICATED H [facility] PLT MORPH. NOT INDICATED [facility] 05/31/2019 10:5 7 AM CDT 05/31/2019 10:57 AM CDT Ella Hodge STRAIGHTENING PRESS OPERATOR [facility] Final Res ult [facility] [address] [place] [address] * COMPREHENSIVE METABOLIC PANEL (05/31/2019 10:57 AM CDT) Pathologist [facility] GLUCOSE 89 70 - 99 mg/dL [facility] SODIUM S/P/B 142 136 - 145 mmol/L [facility] POTASSIUM S/P/B 4.5 3.5 - 5.1 mmol/L [facility] CHLORIDE S/P/B 107 100 - 108 mmol/L [facility] CO2 25 21 - 32 mmol/L [facility] BUN 17 7 - 18 mg/dL [facility] CREATININE S/P/B 0.8 0.5 - 1.2 mg/dL [facility] TOTAL PROTEIN S/P/B 7.3 6.4 - 8.2 g/dL [facility] CALCIUM S/P/B 9.0 8.5 - 10.1 mg/dL [facility] BILIRUBIN TOTAL S/P/B 0.5 0.2 - 1.2 mg/dL [facility] ALKALINE PHOSPHATASE S/P/B 57 50 - 136 U/L [facility] ALBUMIN S/P/B 3.7 3.4 - 5.0 g/dL [facility] AST 17 15 - 37 U/L [facility] ALT 22 14 - 55 U/L [facility] PATIENT'S AGE 73 YEARS [facility] EGFR NON-AFR. AMER. 74 ml/min [facility] EGFR AFR. AMER. 90 ml/min [facility] ANION GAP 15 8 - 20 [facility] Comment: ?GFR INTERPRETATION ?Age(years) ?Average Est GFR by age [...] rapidly changing renal function or fluid imbalance. 05/31/2019 10:5 7 AM CDT 05/31/2019 10:57 AM CDT Ella Rodriguezrie STRAIGHTENING PRESS OPERATOR [facility] Final Res ult Performing Organization Address [facility] de Phone Number [address] [address] * THYROID STIM HORMONE, TSH (05/31/2019 10:57 AM CDT) TSH 1.945 0.358 - 3.740 uIU/mL [facility] Comment: ? TSH INTERPRETATION ?HIGH DOSES OF BIOTIN MAY INTERFERE WITH THIS TEST RESULT. ? CORRELATION TO CLINICAL PRESENTATION RECOMMENDED 05/31/2019 10:5 7 AM CDT 05/31/2019 10:57 AM CDT Ella Rodriguezrie STRAIGHTENING PRESS OPERATOR [facility] Final Res ult Performing Organization Address [facility] de Phone Number [address] [address] documented in this encounter Visit Diagnoses Diagnosis Fatigue, unspecified type- Primary Vitamin D deficiency Unspecified vitamin D deficiency Obstructive sleep apnea Obstructive sleep apnea (adult) (pediatric) Chronic rhinitis Elevated blood pressure reading Elevated blood pressure reading without diagnosis of hypertension Heart burn Heartburn documented in this encounter Care Teams Program Manager Environmental Planning Relationship Specialty Start Date End Date Ziggy Harding MD [address] [place] [address] PCP - General FAMILY PRACTICE 09/21/18 11/10/19 documented as of this encounter
--- OUTSIDE RECORDS SUMMARY | 2024-10-24 12:00 | XMS_ITS | Encounter Summary ---
Author Organization [facility] Address [facility]. [place], [place] [address] [place] [address] Care Team Providers Care Match Maker Name Role Phone Ziggy Harding MD Primary Care Provider Demetrio Shore MD Primary Care Pr ovider Unavailable Joon Lewis Unavailable [phone] Cesar Callie CAMPBELL Unavailable George Osorio MD Unavailable Sergey Ramey Unavailable Jony Pruitt DPM Unavailable Gama Graves MD Unavailable [phone] Encounter Details Date Type Department Care Team (Late st Contact Info) Description 05/31/2019 Abstract [facility] [address] [place] [address] Ella Hodge, [facility] [address] [place] [address] Social History Tobacco Use Types Packs/Day Years [...] st Contact Info) Description 11/02/2024 8:00 AM TRANSPLANT SURGEON Office Visit [address] [place] [address] [facility] [address] [place] [address] 01/19/2025 11:00 AM CDT Office Visit [facility] - [place] [address] [facility] [address] Stanley Jim MD [address] [place] [address] 06/23/2025 8:20 AM CDT Office Visit [address] [place] [address] [facility] [address] [place] [address] documented as of this encounter Visit Diagnoses Not on filedocumented in this encounter Care Teams Match Maker Relationship Specialty Start Date End Date Ziggy Harding MD [address] [place] [address] PCP - General FAMILY PRACTICE 09/21/18 11/10/19 Demetrio Shore MD [address] [place] [address] PCP - General FAMILY PRACTICE 11/11/19 03/29/23 Joon Lewis PA [address] [place] [address] PHYSICIAN TYPESETTING MACHINE TENDER 05/09/21 Callie Guerrero DO [address] [place] [address] Production Control Coordinating Clerk OBGYN 06/14/21 [place] [address] [address] GASTROENTEROLOGY 06/14/21 Sergey Ramey PA [address] [facility] [address] [place] [phone] PHYSICIAN TYPESETTING MACHINE TENDER 06/14/21 Jony Pruitt DPM [address] [place] [address], [address] [place] [address] Referring Physician PODIATRY/SURGERY 06/14/21 [place] [address] [place] [address] ORTHOPAEDIC SURGERY 06/14/21 documented as of this encounter
--- OUTSIDE RECORDS SUMMARY | 2024-10-24 12:00 | XMS_ITS | Encounter Summary ---
Author Organization [facility] Address [address] [place] [address]. [place], [place] [id number] [place] [address] Care Team Providers Care Echocardiography Tech Name Role Phone Ziggy Harding MD Primary Care Provider Reason for Visit * Reason Comments URI/ENT Symptoms Cough Encounter Details Date Type Department Care Team (Late st Contact Info) Description 03/10/2019 11:00 AM CDT Office Visit [address] [address] Jia Leal, [address] [id number] URI/ENT Symptoms; Cough Social History Tobacco Use Types Packs/Day Years Used Date Smoking Tobacco: Never Smokeless Tobacco: Never Comments No Sex and Gender Information Value Date Recorded Sex Assigned at Not on file Legal Sex Female 5:51 PM CDT Gender Identity Not on file Sexual Orientation Not on file documented as of this encounter Last Filed Vital Signs Vital Sign Reading Time Taken Comments Blood Pressure 148/80 03/10/2019 10:46 AM CDT Pulse 80 03/10/2019 10:46 AM CDT Temperature 36.2 ??C (97.2 ??F) 03/10/2019 10:46 AM C DT Respiratory Rate 20 03/10/2019 10:46 AM CDT Oxygen Saturation - - Inhaled Oxygen Concentration - - Weight 66.7 kg (147 lb) 03/10/2019 10:46 AM CDT Height 152.4 cm (5') 03/10/2019 10:46 AM CDT Body Mass Index 28.71 03/10/2019 10:46 AM CDT documented in this encounter Patient Instructions * Patient Instructions* THEODORA Diaz - 03/10/2019 11:00 AM CDT Take augmentin as directed Use tessalon perles as needed for cough Increase oral fluids Call back next week if not improving or sooner if symptoms worsen documented in this encounter Progress Notes * THEODORA Diaz - 03/10/2019 11:00 AM CDT Love is a 73-year-old female patient. Reason for Visit: URI/ENT Symptoms and Cough History of Present Illness: URI This is a new problem. Episode onset: one week ago. The problem has been unchanged. There has been no fever. Associated symptoms include congestion, coughing, headaches, rhinorrhea, sinus pain and a sore throat. Pertinent negatives include no chest pain, ear pain, nausea, plugged ear sensation, swol neal glands, vomiting or wheezing. She has tried acetaminophen for the symptoms. Past Medical History: Diagnosis Date ??? Allergic rhinitis ??? Heartburn ??? Hip pain Past Surgical History: Procedure Laterality Date ??? BREAST BIOPSY ??? COLONOSCOPY Medications: Current Outpatient Medications: ??? dvouxslfwn-lszieootxcldd-tjgwgbhp 50-325-40 MG tablet, Take 1 tablet by mouth every 4 (four) hours as needed., Disp: , Rfl: ??? fexofenadine (ARELI ALLERGY) 180 MG tablet, Take 1 tablet by mouth daily., Disp: , Rfl: ??? meloxicam 7.5 MG tablet, Take 1 tablet (7.5 mg total) by mouth daily for 30 days., Disp: 30 tablet, Rfl: 1 ??? montelukast 10 MG tablet, Take 1 [...] (four) times daily., Disp: , Rfl: ??? PRAVASTATIN 20 MG tablet, TAKE 1 TABLET BY MOUTH EVERY DAY, Disp: 30 tablet, Rfl: 0 ??? ranitidine 300 MG tablet, Take 1 tablet daily at bedtime., Disp: 90 tablet, Rfl: 3 No Known Allergies Family History Problem Relation Name Age of Onset ??? Other (TIA) Mother ??? Colon Cancer Brother Family Status Relation Name Status ??? Mother (Not Specified) ??? Brother (Not Specified) reports that she has never smoked. She has never used smokeless tobacco. She is . ROS: Review of Systems Constitutional: Negative for chills and fever. HENT: Positive for congestion, rhinorrhea, sinus pain and sore throat. Negative for ear discharge and ear pain. Eyes: Negative for discharge. Respiratory: Positive for cough and sputum production. Negative for hemoptysis, shortness of breathand wheezing. Cardiovascular: Negative for chest pain. Gastrointestinal: Negative for nausea and vomiting. Neurological: Positive for headaches. Negative for dizziness. Vitals: Filed Vitals: 03/10/19 1046 BP: 148/80 Pulse: 80 Resp: 20 Temp: 97.2 ??F (36.2 ??C) Weight: 66.7 kg (147 lb) Height: 5' (1.524 m) Physical Exam Constitutional: She is oriented to person, place, and time. She appears well- developed and well-nourished. HENT: Head: Normocephalic and atraumatic. Right Ear: Hearing, tympanic membrane and ear canal normal. Left Ear: Hearing, tympanic membrane and ear canal normal. Nose: Mucosal edema present. Right sinus exhibits maxillary sinus tenderness. Right sinus exhibits no frontal sinus tenderness. Left sinus exhibits maxillary sinus tenderness. Left sinus exhibits no frontal sinus tenderness. Mouth/Throat: Uvula is midline, oropharynx is clear and moist and mucous membranes are normal. Eyes: Conjunctivae are normal. Pupils are equal, round, and reactive to light. Neck: Normal range of motion. Neck supple. No thyromegaly present. Cardiovascular: Normal rate and regular rhythm. Pulmonary/Chest: Effort normal and breath sounds normal. Lymphadenopathy: She has no cervical adenopathy. Neurological: She is alert and oriented to person, place, and time. Skin: Skin is warm and dry. Psychiatric: She has a normal mood and affect. Nursing note and vitals reviewed. Diagnoses/Impression: Encounter Diagnose(s) ICD-10-CM ICD-9-CM SNOMED CT(R) 1. Acute non-recurrent maxillary sinusitis J01.00 461.0 ACUTE MAXILLARY SINUSITIS amoxicillin-clavulanate (AUGMENTIN) 875-125 MG tablet 2. Cough R05 786.2 COUGH benzonatate (TESSALON PERLES) 100 MG capsule Plan Orders Placed: Orders Placed This Encounter ??? benzonatate (TESSALON PERLES) 100 MG capsule ??? amoxicillin-clavulanate (AUGMENTIN) 875-125 MG tablet Instructions Patient Instructions Take augmentin as directed Use tessalon perles as needed for cough Increase oral fluids Call back next week if not improving or sooner if symptoms worsen THEODORA DIAZ 03/10/2019 10:54 AM Cosigned by Carrie Tompkins DO at 03/11/2019 5:30 PM CDT documented in this encounter Plan of Treatment Upcoming Encounters Date Type Department Care Team (Late st Contact Info) Description 11/02/2024 8:00 AM WARNING COORDINATION METEOROLOGIST Office Visit [address] [place], [place] [phone] Ella Hodge FNP [address] [place] [address] [place] [address] 01/19/2025 11:00 AM CDT Office Visit [facility] - [address] [place] [address] Stanley Jim MD [address] [place] [address] 06/23/2025 8:20 AM CDT Office Visit [facility] [address] [facility] [place] [address] Ella Hodge, [facility] [address] [place], [place] [id number] documented as of this encounter Visit Diagnoses Diagnosis Acute non-recurrent maxillary sinusitis- Primary Cough documented in this encounter Care Teams Echocardiography Tech Relationship Specialty Start Date End Date Ziggy Harding MD [address] [place] [address] [place], [place] [id number] PCP - General FAMILY PRACTICE 09/21/18 11/10/19 documented as of this encounter
--- OUTSIDE RECORDS SUMMARY | 2024-10-24 12:00 | XMS_ITS | Encounter Summary ---
Author Organization [facility] Address [address] [place] [address]. [place], [place] [address] [place] [address] Care Team Providers Care Car Painter Name Role Phone Ziggy Harding MD Primary Care Provider Encounter Details Date Type Department Care Team (Late st Contact Info) Description 06/01/2019 Orders Only [address] [place], [place] [id number] Ella Hodge, [address] [place] [address] Social History Tobacco Use Types Packs/Day Years Used Date Smoking Tobacco: Never Smokeless Tobacco: Never Comments No Sex and Gender Information Value Date Recorded Sex Assigned at Not on file Legal Sex Female 5:51 PM CDT Gender Identity Not on file Sexual Orientation Not on file documented as of this encounter Progress Notes * Yesi Burnett LPN - 06/08/2019 4:00 PM CDT Left message for patient to call back. documented in this encounter Plan of Treatment Upcoming Encounters Date Type Department Care Team (Late st Contact Info) Description 11/02/2024 8:00 AM COMMERCIAL LAWN SPECIALIST Office Visit [address] [place] [id number] Ella Hodge FNP [address] [facility] [place] [address] 01/19/2025 11:00 AM CDT Office Visit [facility] Medical [facility] [place] 200 [facility] [place] [address] Stanley Jim MD [address] [place] [address] 06/23/2025 8:20 AM CDT Office Visit [facility] [address] [facility] [address] [place], [place] [phone] Ella Hodge FNP [address] [facility] [place] [address] documented as of this encounter Procedures Procedure Name Priority Date/Time Associated Diagnosis Comments IRON SAT PANEL (IRON,IBC,%SAT) Routine 06/08/2019 10:56 AM CDT Anemia documented in this encounter Results * (ABNORMAL) IRON SAT PANEL (IRON,IBC,%SAT) (06/08/2019 10:56 AM CDT) IRON 102 50 - 170 ug/dL [facility] IRON BINDING CAPACITY 441(H) 250 - 420 ug/dL [facility] O2 SATURATION 23.1 20.0 - 55.0 % [facility] 06/08/2019 10:5 6 AM CDT 06/08/2019 10:56 AM CDT [facility] Final Res ult [facility] [address] [place] [address] documented in this encounter Visit Diagnoses Diagnosis Anemia- Primary Anemia, unspecified documented in this encounter Care Teams Car Painter Relationship Specialty Start Date End Date Ziggy Harding MD [address] [place] [address] [place] [address] PCP - General FAMILY PRACTICE 09/21/18 11/10/19 documented as of this encounter
--- OUTSIDE RECORDS SUMMARY | 2024-10-24 12:00 | XMS_ITS | Encounter Summary ---
Author Organization [facility] Address Count includes the [facility]6 [facility]. [place], [place] [address] [place] [address] Care Team Providers Care Machine Assembler For Puller Over Name Role Phone Ziggy Harding MD Primary Care Provider [phone] Encounter Details Date Type Department Care Team (Latest Contact Info) Description 12/14/2018 Scan HEALTH INFO SRVCS Scanned, Documents Social [...] st Contact Info) Description 11/02/2024 8:00 AM GEOTHERMAL POWERPLANT MECHANIC Office Visit [facility] [address] [place] [address] Ella Hodge FNP [address] [place] [address] 01/19/2025 11:00 AM CDT Office Visit [facility] Medical Group [facility] [place] [address] [place] [address] Stanley Jim MD [address] [place] [address] 06/23/2025 8:20 AM CDT Office Visit [facility] 201 [facility] [place] [address] Ella Hodge [facility] [address] [place] [address] documented as of this encounter Visit Diagnoses Not on filedocumented in this encounter Care Teams Machine Assembler For Puller Over Relationship Specialty Start Date End Date Ziggy Harding MD [address] [place] [address] PCP - General FAMILY PRACTICE 09/21/18 11/10/19 documented as of this encounter
--- OUTSIDE RECORDS SUMMARY | 2024-10-24 12:00 | XMS_ITS | Encounter Summary ---
Author Organization [facility] Address [facility]. [place], [place] [address] [place] [address] Care Team Providers Care Wood Last Maker Name Role Phone Ziggy Harding MD Primary Care Provider Demetrio Shore MD Primary Care Pr ovider Unavailable Joon Lewis Unavailable [phone] Cesar Callie [place] Unavailable George Osorio MD Unavailable Sergey Ramey Unavailable Jony Pruitt DPM Unavailable Gama Graves MD Unavailable [phone] Encounter Details Date Type Department Care Team (Late st Contact Info) Description 06/08/2019 Abstract [facility] [address] [place] [address] Ella Hodge, CUTTING PRESSMAN [address] [place] [address] Social History Tobacco Use Types Packs/Day Years [...] st Contact Info) Description 11/02/2024 8:00 AM WALL CRANE OPERATOR Office Visit [address] [place] [address] Ella Hodeg [facility] [address] [facility] [place] [address] 01/19/2025 11:00 AM CDT Office Visit [facility] Medical Group [facility] [place] [address] [facility] [address] Stanley Jim MD [address] [place] [address] 06/23/2025 8:20 AM CDT Office Visit [address] [place] [address] Ella Hodge [facility] [address] [facility] [place] [address] documented as of this encounter Visit Diagnoses Not on filedocumented in this encounter Care Teams Wood Last Maker Relationship Specialty Start Date End Date Ziggy Harding MD [address] [facility] [place] [address] PCP - General FAMILY PRACTICE 09/21/18 11/10/19 Demetrio Shore MD [address] [place] [address] PCP - General FAMILY PRACTICE 11/11/19 03/29/23 Joon Lewis PA [address] [place] [address] PHYSICIAN DIGITAL ACCOUNT DIRECTOR 05/09/21 Calile Guerrero DO [address] [place] [address] Strategy Specialist OBGYN 06/14/21 [place] [address] [address] GASTROENTEROLOGY 06/14/21 Sergey Ramey PA [address] [place] [phone] PHYSICIAN DIGITAL ACCOUNT DIRECTOR 06/14/21 Jony Pruitt DPM [address] [place] [address], [address] [place] [address] Referring Physician PODIATRY/SURGERY 06/14/21 [place] [address] [place] [address] ORTHOPAEDIC SURGERY 06/14/21 documented as of this encounter
--- OUTSIDE RECORDS SUMMARY | 2024-10-24 12:00 | XMS_ITS | Encounter Summary ---
Author Organization [facility] Address [facility]6 [facility]. [place], [place] [address] [place] [address] Care Team Providers Care Prover Name Role Phone Ziggy Harding MD Primary Care Provider [phone] Reason for Visit * Reason Comments New Patient Hip Pain Rt * Consultation/Treatment (Routine) - Closed Specialty Diagnoses / Procedures Referred By Chet nicholson Referred To Contact ORTHOPAEDICS Diagnoses Chronic pain of right hip Ella Hodge, [address] [place] [address] Phone: tel: fax: Cornelia Ortega NP-C Referral ID Status Reason Start Date Expiration Date V isits Requested Visits Authorized [id number] Closed Specialty Services 01/19/2019 02/20/2020 100 100 Encounter Details Date Type Department Care Team (Late st Contact Info) Description 02/11/2019 11:20 AM CDT Office Visit [facility] Medical Group Multispecialty Care - [address], [address] [place] [address] Cornelia Ortega NP-Anyi New Patient; Hip Pain (Rt) Social History Tobacco Use Types Packs/Day Years Used Date Smoking Tobacco: Never Smokeless Tobacco: Never Comments No Sex and Gender Information Value Date Recorded Sex Assigned at Not on file Legal Sex Female 5:51 PM CDT Gender Identity Not on file Sexual Orientation Not on file documented as of this encounter Last Filed Vital Signs Vital Sign Reading Time Taken Comments Blood Pressure 130/68 02/11/2019 11:12 AM CDT Pulse 73 02/11/2019 11:12 AM CDT Temperature - - Respiratory Rate - - Oxygen Saturation - - Inhaled Oxygen Concentration - - Weight 66.2 kg (146 lb) 02/11/2019 11:12 AM CDT Height 152.4 cm (5') 02/11/2019 11:12 AM CDT Body Mass Index 28.51 02/11/2019 11:12 AM CDT documented in this encounter Progress Notes * RENEE Lance - 02/11/2019 11:20 AM CDT Images from the original note were not included. Office Progress Note Reason for Visit: New Patient and Hip Pain (Rt) History of Present Illness: Patient is a pleasant 73-year-old who is here today for evaluation of right hip pain. Patient does deny anterior hip pain but states her pain is more lateral and somewhat posterior. She states that she has no pain at rest but 8/10 at times when getting up from a seated position with the first few steps. After patient walks for a bit the pain seems to decrease. This is been going on for approximately 1-1/2 years. She has used Aleve intermittently which does provide some relief. Patient has done 1 month of physical therapy with minimal pain relief. Patient denies having any prior surgery. Patient denies numbness/tingling to her right leg. Patient lives with her spouse. Patient is fairly active and getting ready to go to [place] with her daughter for a long weekend. ROS: Review of Systems Constitutional: Negative. HENT: Negative. Eyes: Positive for blurred vision (right eye). Respiratory: Negative. Cardiovascular: Negative. Gastrointestinal: Negative. Genitourinary: Negative. Musculoskeletal: Positive for back pain and joint pain. Skin: Negative. Neurological: Negative. Endo/Heme/Allergies: Negative. Psychiatric/Behavioral: Negative. Medications: Outpatient Medications Marked as Taking for the 02/11/19 encounter (Office Visit) with RENEE Lance Medication Sig Dispense Refill ??? frmyhoohun-uycanddjbigqf-zvwnhebo 50-325-40 MG tablet Take 1 tablet by mouth every 4 (four) hours as needed. ??? fexofenadine (ARELI ALLERGY) 180 MG tablet Take 1 tablet by mouth daily. ??? meloxicam 7.5 MG tablet Take 1 tablet (7.5 mg total) by mouth daily for 30 days. 30 tablet 1 ??? montelukast 10 MG tablet Take 1 tablet (10 mg total) by mouth daily. 90 tablet 0 ??? Multiple Minerals-Vitamins ([facility] [...] file Gets together: Not on file Attends mu-ism service: Not on file Active member of [...] ??? Colon Cancer Brother VITALS: Filed Vitals: 02/11/19 1112 BP: 130/68 Pulse: 73 Weight: 66.2 kg (146 lb) Height: 5' [...] Right hip: She exhibits decreased range of motion (flexion: 90, ER 40, IR 15 with pain). She exhibits no bony tenderness. Left hip: Normal. Positive FABIR, Negative CARSON Neurological: She is alert and oriented to person, place, and time. Gait normal. Skin: Skin is warm and dry. No erythema. Psychiatric: Memory, affect and judgment normal. Vitals reviewed. Imaging: Reviewed most recent image study. 2 view right hip 11/02/18 done at at bedtime at [facility]. Images brought on disc and uploaded in PACS Impression: Moderate loss of joint space with moderate osteophyte Diagnoses/Impression: 1. Primary osteoarthritis of right hip meloxicam 7.5 MG tablet Recommendations and Plan: Discussed with patient hip osteoarthritis and treatments may include oral medication, injection, hip replacement. At this time after discussion we did determine it would be best to start on daily meloxicam. Informed not to take Aleve along with Meloxicam. Patient to return in 4-6 weeks to see if this was beneficial. If not or she is not able to tolerate it I would recommend intra- articular right hip injection. Diagnosis and plan of care was discussed with patient. Patient verbalized understanding of treatment plan. Patient was informed to call the office if there is any increase in pain, swelling, side effects of any medication administered here today. RENEE LANCE 02/11/2019 documented in this encounter Plan of Treatment Upcoming Encounters Date Type Department Care Team (Late st Contact Info) Description 11/02/2024 8:00 AM JOINT MAKER MACHINE Office Visit [address] [place] [address] Ella Hodge FNP 201 [facility] [place] [address] 01/19/2025 11:00 AM CDT Office Visit [facility] Medical Group Pul[facility]ology [facility]ty [facility] - [place] [address] [facility] [place] [address] Stanley Jim MD [address] [place] [address] 06/23/2025 8:20 AM CDT Office Visit [address] [place] [address] Ella Hodge [address] [place] [address] documented as of this encounter Visit Diagnoses Diagnosis Primary osteoarthritis of right hip- Primary Primary localized osteoarthrosis, pelvic region and thigh documented in this encounter Care Teams Prover Relationship Specialty Start Date End Date Ziggy Harding MD 201 [facility] [place] [address] PCP - General FAMILY PRACTICE 09/21/18 11/10/19 documented as of this encounter
--- OUTSIDE RECORDS SUMMARY | 2024-10-24 12:00 | XMS_ITS | Encounter Summary ---
Author Organization [facility] Address [facility]6 [facility]. [place], [place] [address] [place] [address] Care Team Providers Care Curer Acid Drum Name Role Phone Ziggy Harding MD Primary Care Provider [phone] Encounter Details Date Type Department Care Team (Latest Contact Info) Description 08/20/2019 Scan HEALTH INFO SRVCS Scanned, Documents Social [...] Contact Info) Description 11/02/2024 8:00 AM SENIOR FINANCIAL ANALYST Office Visit [facility] [address] [place] [address] Ella Hodge FNP [address] [place] [address] 01/19/2025 11:00 AM CDT Office Visit [facility] Medical Group Pul[facility]ology Specialty Clinic - [place] [address] [place] [address] Stanley Jim MD [address] [place] [address] 06/23/2025 8:20 AM CDT Office Visit [facility] 201 [facility] [place] [address] Ella Hodge [facility] [address] [place] [address] documented as of this encounter Visit Diagnoses Not on filedocumented in this encounter Care Teams Curer Acid Drum Relationship Specialty Start Date End Date Ziggy Harding MD [address] [place] [address] PCP - General FAMILY PRACTICE 09/21/18 11/10/19 documented as of this encounter
--- OUTSIDE RECORDS SUMMARY | 2024-10-24 12:00 | XMS_ITS | Encounter Summary ---
Author Organization [facility] Address [facility]6 [facility]. [place], [place] [address] [place] [address] Care Team Providers Care Computer Information Science Professor Name Role Phone Ziggy Harding MD Primary Care Provider Demetrio Shore MD Primary Care Pr ovider Unavailable Joon Lewis Unavailable [phone] Cesar Callie DO Unavailable [phone] George Osorio MD Unavailable Sergey Ramey Unavailable [phone] Jony Pruitt DPM Unavailable [phone] Gama Graves MD Unavailable [phone] Encounter Details Date Type Department Care Team (Late st Contact Info) Description 09/24/2019 Abstract [facility] [address] [place] [address] Justyna Chan V, [facility] [address] [place] [address] Social History Tobacco Use Types Packs/Day Years [...] st Contact Info) Description 11/02/2024 8:00 AM FINANCIAL REPORTING MANAGER Office Visit [address] [place] [address] Ella Hodge [facility] [address] [facility] [place] [address] 01/19/2025 11:00 AM CDT Office Visit [facility] Medical Group Pulmonology Specialty Clinic - [address] [place] [address] Stanley Jim MD [address] [place] [address] 06/23/2025 8:20 AM CDT Office Visit [address] [place] [address] Ella Hodge [facility] [address] [facility] [place] [address] documented as of this encounter Visit Diagnoses Not on filedocumented in this encounter Care Teams Computer Information Science Professor Relationship Specialty Start Date End Date Ziggy Harding MD [address] [facility] [place] [address] PCP - General FAMILY PRACTICE 09/21/18 11/10/19 Demetrio Shore MD [address] [place] [address] PCP - General FAMILY PRACTICE 11/11/19 03/29/23 Joon Lewis PA [address] [place] [address] PHYSICIAN BLUNGER MACHINE OPERATOR 05/09/21 Callie Guerrero DO [address] [place] [address] Lacquer Machine Feeder OBGYN 06/14/21 [place] [address] [address] GASTROENTEROLOGY 06/14/21 Sergey Ramey PA [address] [facility] [place] [phone] PHYSICIAN BLUNGER MACHINE OPERATOR 06/14/21 Jony Pruitt DPM [address] [place] [address], [facility] [address] [place] [address] Referring Physician PODIATRY/SURGERY 06/14/21 [place] [address] [place] [address] ORTHOPAEDIC SURGERY 06/14/21 documented as of this encounter
--- OUTSIDE RECORDS SUMMARY | 2024-10-24 12:00 | XMS_ITS | Encounter Summary ---
Author Organization [facility] Address [facility]. [place], [place] [address] [place] [address] Care Team Providers Care Volunteer Specialist Name Role Phone Ziggy Harding MD Primary Care Provider [phone] Reason for Visit * Reason Onset Date Comments Throat Culture 09/24/2019 Encounter Details Date Type Department Care Team (Late st Contact Info) Description 09/24/[address] [place] [address] Ziggy Harding MD [address] [place] [address] [place] [address] Throat Culture Social History Tobacco Use Types Packs/Day Years [...] Progress Notes * Julia العراقي LPN - 09/24/2019 4:34 PM CST Ita lang reviewed lab , normal. Meloxicam and lisinopril refilled #30 to pharmacy per Ita lang. Pt aware of same. ING MACHINE OPERATOR documented in this encounter Plan of Treatment Upcoming Encounters Date Type Department Care Team (Late st Contact Info) Description 11/02/2024 8:00 AM PLATING MACHINE OPERATOR Office Visit [address] [place] [address] Ella Hodge FNP 201 [facility] [address] 01/19/2025 11:00 AM CDT Office Visit [facility] Medical Group Pulmonology Specialty Clinic - [place] [address] [facility] [place] [address] Stanley Jim MD [address] [place] [address] 06/23/2025 8:20 AM CDT Office Visit [address] [place] [address] Ella Hodge [facility] 201 [facility] [place] [address] documented as of this encounter Visit Diagnoses Not on filedocumented in this encounter Care Teams Volunteer Specialist Relationship Specialty Start Date End Date Ziggy Harding MD [address] [facility] [place] [address] PCP - General FAMILY PRACTICE 09/21/18 11/10/19 documented as of this encounter
--- OUTSIDE RECORDS SUMMARY | 2024-10-24 12:00 | XMS_ITS | Encounter Summary ---
Author Organization [facility] Address [address] [place] [address]. [place], [place] [address] [place] [address] Care Team Providers Care Trapper Bird Name Role Phone Ziggy Harding MD Primary Care Provider [phone] Encounter Details Date Type Department Care Team (Latest Contact Info) Description 10/10/2019 Scan HEALTH INFO SRVCS Scanned, Documents Social [...] st Contact Info) Description 11/02/2024 8:00 AM COMMAND AND CONTROL Office Visit [facility] [address] [place] [phone] Ella Hodge, [facility] [address] [place] [address] 01/19/2025 11:00 AM CDT Office Visit [facility] Medical Group Pul[facility]ology Specialty [facility] - [place] 200 [facility] [place] [address] Stanley Jim MD [address] [place] [address] 06/23/2025 8:20 AM CDT Office Visit [facility] [address] [place], [place] [phone] Ella Hodge [facility] [address] [place], [place] [address] documented as of this encounter Visit Diagnoses Not on filedocumented in this encounter Care Teams Trapper Bird Relationship Specialty Start Date End Date Ziggy Harding MD 201 [facility] [place], [place] [phone] PCP - General FAMILY PRACTICE 09/21/18 11/10/19 documented as of this encounter
--- OUTSIDE RECORDS SUMMARY | 2024-10-24 12:01 | XMS_ITS | Encounter Summary ---
Author Organization [facility] Address [address] [place] [address]. [place], [place] [address] [place] [address] Care Team Providers Care Smart Grid Engineer Name Role Phone Ziggy Harding MD Primary Care Provider [phone] Reason for Visit * Reason Onset Date Comments Error 09/24/2018 Encounter Details Date Type Department Care Team (Late st Contact Info) Description 09/24/[address] [place], [place] [phone] Meagan Grullon, [address] [place] [id number] Error Social History Tobacco Use Types Packs/Day Years Used Date Smoking Tobacco: Never Assessed Comments Unknown Sex and Gender Information Value Date Recorded Sex Assigned at Not on file Legal Sex Female 5:51 PM CDT Gender Identity Not on file Sexual Orientation Not on file documented as of this encounter Progress Notes * Awilda Baker LPN - 09/24/2018 3:16 PM CST Error MOTIVE WARRANTY ADMINISTRATOR documented in this encounter Plan of Treatment Upcoming Encounters Date Type Department Care Team (Late st Contact Info) Description 11/02/2024 8:00 AM AUTOMOTIVE WARRANTY ADMINISTRATOR Office Visit [address] [place] [address] Ella Hodge [facility] 201 [facility] [place] [address] 01/19/2025 11:00 AM CDT Office Visit [facility] Medical Group [facility] - [place] [address] [facility] [place] [address] Stanley Jim MD [address] [place] [address] 06/23/2025 8:20 AM CDT Office Visit [facility] [address] [facility] [place] [address] Ella Hodge [facility] [address] [facility] [place] [address] documented as of this encounter Visit Diagnoses Not on filedocumented in this encounter Care Teams Smart Grid Engineer Relationship Specialty Start Date End Date Ziggy Harding MD [address] [facility] [place] [address] PCP - General FAMILY PRACTICE 09/21/18 11/10/19 documented as of this encounter
--- OUTSIDE RECORDS SUMMARY | 2024-10-24 12:01 | XMS_ITS | Encounter Summary ---
Author Organization [facility] Address [address] [place] [address]. [place], [place] [address] [place] [address] Care Team Providers Care Dealer Sales Rep Name Role Phone Unavailable Primary Care Provider Unavailabl e Encounter Details Date Type Department Care Team (Late Contact Info) Description 05/07/2017 Abstract [facility] Conversion Md, Generic Conversion, Social History Tobacco Use Types Packs/Day Years [...] st Contact Info) Description 11/02/2024 8:00 AM KEG HEADER Office Visit [facility] [address] [place] [address] Ella Hodge FNP [address] [place] [address] 01/19/2025 11:00 AM CDT Office Visit [facility] [place] [address] [place] [address] Stanley Jim MD [address] [place] [address] 06/23/2025 8:20 AM CDT Office Visit [address] [place] [phone] Ella Hodge, [address] [place] [address] documented as of this encounter Visit Diagnoses Not on filedocumented in this encounter
--- OUTSIDE RECORDS SUMMARY | 2024-10-24 12:01 | XMS_ITS | Encounter Summary ---
Author Organization [facility] Address [address] [place] [address]. [place], [place] [address] [place] [address] Care Team Providers Care Medical Nurse Name Role Phone Ziggy Harding MD Primary Care Provider Reason for Visit * Reason Comments Hip Pain right Encounter Details Date Type Department Care Team (Late st Contact Info) Description 11/02/2018 8:00 AM WILDLIFE TECHNICIAN Office Visit [facility] [address] [facility] [place] [address] Ella Hodge, [place] [address] [place], [place] [id number] Hip Pain (right ) Social History Tobacco Use Types Packs/Day [...] Reading Time Taken Comments Blood Pressure 140/70 11/02/2018 8:09 AM WILDLIFE TECHNICIAN Pulse 80 11/02/2018 8:09 AM WILDLIFE TECHNICIAN Temperature 37.1 ??C (98.7 ??F) 11/02/2018 8:09 AM CS T Respiratory Rate 16 11/02/2018 8:09 AM WILDLIFE TECHNICIAN Oxygen Saturation - - Inhaled Oxygen Concentration - - Weight 64 kg (141 lb) 11/02/2018 8:09 AM WILDLIFE TECHNICIAN Height 152.4 cm (5') 11/02/2018 8:09 AM WILDLIFE TECHNICIAN Body Mass Index 27.54 11/02/2018 8:09 AM WILDLIFE TECHNICIAN documented in this encounter Patient Instructions * Patient Instructions* THEODORA Head - 11/02/2018 8:00 AM WILDLIFE TECHNICIAN We will call with xray results today. Start chiropractic therapy as planned. Call with an update in1 month. LIFE TECHNICIAN documented in this encounter Progress Notes * THEODORA Head - 11/02/2018 8:00 AM CST Love Catherine is a 72-year-old female patient. Reason for Visit: Hip Pain (right ) History of Present Illness: Hip Pain There was no injury mechanism. The pain is present in the right hip. The pain is moderate. The painhas been fluctuating since onset. Associated symptoms include a loss of motion. Pertinent negativesinclude no muscle weakness, numbness or tingling. Exacerbated by: sitting. Treatments tried: career development specialist. The treatment provided mild relief. ROS: Review of Systems Constitutional: Negative. Musculoskeletal: Positive for joint pain. Negative for back pain. Neurological: Negative for tingling and numbness. Psychiatric/Behavioral: The patient has insomnia (due to symptoms). Medications: Current Outpatient Medications: ??? fexofenadine (ARELI ALLERGY) 180 MG tablet, Take 1 tablet by mouth daily., Disp: , Rfl: ??? methylPREDNISolone, CHAPITO, 4 MG tablet, Take 1 tablet (4 mg total) by mouth see administration instructions. 6 TABLETS ON DAY ONE, 5 TABLETS DAY TWO, 4 TABLETS DAY THREE, 3 TABLETS DAY FOUR, 2 TABLETS DAY FIVE, AND 1 TABLET DAY SIX, Disp: 1 each, Rfl: 0 ??? montelukast 10 MG tablet, Take 1 tablet (10 mg total) by mouth daily., Disp: 30 tablet, Rfl: 3 ??? Multiple Minerals-Vitamins ([employer] CITRATE+D/MAGNESIUM) Tab, Take 1 tablet by mouth daily., Disp: , Rfl: ??? naproxen sodium (ALEVE) 220 MG tablet, Take 1 tablet by mouth every 12 (twelve) hours as needed., Disp: , Rfl: ??? pravastatin (PRAVACHOL) 20 MG tablet, Take 1 tablet (20 mg total) by mouth daily., Disp: 30 tablet, Rfl: 3 ??? ranitidine (ZANTAC 150 MAXIMUM STRENGTH) 150 MG tablet, Take 1 tablet daily at bedtime., Disp: 90 tablet, Rfl: 0 No Known Allergies No past medical history on file. No past surgical history on file. Social History Socioeconomic History ??? Marital status: Spouse name: Not on file ??? Number of children: Not on file ??? Years of education: Not on file ??? Highest education level: Not on file Social Needs ??? Financial resource strain: Not on file ??? Food insecurity - worry: Not on file ??? Food insecurity - inability: Not on file ??? Transportation needs - medical: Not on file ??? Transportation needs - non-medical: Not on file Occupational History ??? Not on file Tobacco Use ??? Smoking status: Never Smoker ??? Smokeless tobacco: Never Used Substance and Sexual Activity ??? Alcohol use: Not on file ??? Drug use: Not on file ??? Sexual activity: Not on file Other Topics Concern ??? Not on file Social History Narrative ??? Not on file No family history on file. No family status information on file. Filed Vitals: 11/02/18 0809 BP: 140/70 Pulse: 80 Resp: 16 Temp: 98.7 ??F (37.1 ??C) TempSrc: Temporal Weight: 64 kg (141 lb) Height: 5' (1.524 m) Physical Exam: Physical Exam Constitutional: She appears well-developed. Pulmonary/Chest: Effort normal. Musculoskeletal: Right hip: She exhibits decreased range of motion and bony tenderness. She exhibits normal strength. Neurological: She is alert. She has normal strength. Skin: Skin is warm and intact. Psychiatric: She has a normal mood and affect. Her speech is normal and behavior is normal. Judgment and thought content normal. Cognition and memory are normal. Labs: Diagnoses/Impression: Encounter Diagnose(s) ICD-10-CM ICD-9-CM SNOMED CT(R) 1. Pain of right hip joint M25.551 719.45 PAIN IN RIGHT HIP JOINT XR HIP RT 2V methylPREDNISolone, CHAPITO, 4 MG tablet Recommendations and Plan: Consider MRI and PT. Patient Instructions We will call with xray results today. Start chiropractic therapy as planned. Call with an update in1 month. THEODORA HEAD Cosigned by Ziggy Harding MD at 11/02/2018 9:50 AM WILDLIFE TECHNICIAN LIFE TECHNICIAN LIFE TECHNICIAN documented in this encounter Plan of Treatment Upcoming Encounters Date Type Department Care Team (Late st Contact Info) Description 11/02/2024 8:00 AM WILDLIFE TECHNICIAN Office Visit [address] [place] [address] Ella Hodge FNP [address] [facility] [place] [address] 01/19/2025 11:00 AM CDT Office Visit [facility] Pul[facility]ology Specialty Clinic - [address] [place] [address] Stanley Jim MD [address] [place] [address] 06/23/2025 8:20 AM CDT Office Visit [address] [place] [address] Ella Hodge FNP [address] [facility] [place] [address] documented as of this encounter Visit Diagnoses Diagnosis Pain of right hip joint- Primary documented in this encounter Care Teams Medical Nurse Relationship Specialty Start Date End Date Ziggy Harding MD [address] [facility] [place] [address] PCP - General FAMILY PRACTICE 09/21/18 11/10/19 documented as of this encounter
--- OUTSIDE RECORDS SUMMARY | 2024-10-24 12:01 | XMS_ITS | Encounter Summary ---
Author Organization [facility] Address [address] [place] [address]. [place], [place] [phone] [place] [address] Care Team Providers Care Slurry Control Tender Name Role Phone Unavailable Primary Care Provider Unavailabl e Encounter Details Date Type Department Care Team (Late Contact Info) Description 08/27/2017 Abstract [facility] Conversion Md, Generic Conversion, Social [...] st Contact Info) Description 11/02/2024 8:00 AM CLOTH SPREADER [facility] [address] [place] [address] Ella Hodge FNP [address] [place] [address] 01/19/2025 11:00 AM CDT Office Visit [facility] [place] [address] [place] [address] Stanley Jim MD [address] [place] [address] 06/23/2025 8:20 AM CDT Office Visit [address] [place] [phone] Ella Hodge, [address] [place] [address] documented as of this encounter Visit Diagnoses Not on filedocumented in this encounter
--- OUTSIDE RECORDS SUMMARY | 2024-10-24 12:01 | XMS_ITS | Encounter Summary ---
Author Organization [facility] Address [facility]. [place], [place] [address] [place] [address] Care Team Providers Care Community Recreation Coordinator Name Role Phone Ziggy Harding MD Primary Care Provider Encounter Details Date Type Department Care Team (Late st Contact Info) Description 10/22/2018 Orders Only [facility] [address] [place] [address] Chiqui Michel, RN Social History Tobacco Use [...] st Contact Info) Description 11/02/2024 8:00 AM ETL PROGRAMMER Office Visit [facility] [address] [place] [address] Ella Hodge FNP [address] [place] [address] 01/19/2025 11:00 AM CDT Office Visit [facility] [place] [address] [place] [address] Stanley Jim MD [address] [address] 06/23/2025 8:20 AM CDT Office Visit [facility] [address] [place] [address] Ella Hodge, [facility] [address] [place] [phone] documented as of this encounter Visit Diagnoses Diagnosis Heartburn documented in this encounter Care Teams Community Recreation Coordinator Relationship Specialty Start Date End Date Ziggy Harding MD [address] [place] [address] [place] [id number] PCP - General FAMILY PRACTICE 09/21/18 11/10/19 documented as of this encounter
--- OUTSIDE RECORDS SUMMARY | 2024-10-24 12:01 | XMS_ITS | Encounter Summary ---
Author Organization [facility] Address [address] [place] [address]. [place], [place] [address] [place] [address] Care Team Providers Care Pediatric Ophthalmologist Name Role Phone Unavailable Primary Care Provider Unavailabl e Encounter Details Date Type Department Care Team (Late Contact Info) Description 09/01/2018 Abstract [facility] Conversion Md, Generic Conversion, Social [...] st Contact Info) Description 11/02/2024 8:00 AM CHAIR POST MACHINE OPERATOR Office Visit [facility] [address] [place] [address] Ella Hodge FNP [address] [place] [address] 01/19/2025 11:00 AM CDT Office Visit [facility] [place] [address] [place] [address] Stanley Jim MD [address] [place] [address] 06/23/2025 8:20 AM CDT Office Visit [address] [place] [phone] Ella Hodge, [address] [place] [address] documented as of this encounter Visit Diagnoses Not on filedocumented in this encounter
--- OUTSIDE RECORDS SUMMARY | 2024-10-24 12:01 | XMS_ITS | Encounter Summary ---
Author Organization [facility] Address [facility]. [place], [place] [address] [place] [address] Care Team Providers Care Machine Shop Worker Name Role Phone Ziggy Harding MD Primary Care Provider [phone] Demetrio Shore MD Primary Care Pr ovider Unavailable Joon Lewis Unavailable [phone] Callie Guerrero DO Unavailable [phone] George Osorio MD Unavailable Sergey Ramey Unavailable [phone] Jony Pruitt DPM Unavailable [phone] Gama Graves MD Unavailable [phone] Vinita Mckeon NP Primary Care Provider [phone] Ella Hodge PATHOLOGY SUPERVISOR Primary Care Provider [phone] Encounter Details Date Type Department Care Team (Late st Contact Info) Description 08/30/2017 Abstract [place] [address] , Generic Conversion, Social History Tobacco Use Types [...] st Contact Info) Description 11/02/2024 8:[address] SWEEPER OPERATOR Office Visit [facility] [address] [facility] [place] [address] Ella Hodge [facility] 201 [facility] [place] [address] 01/19/2025 11:00 AM CDT Office Visit [facility] Pulmonology Specialty Clinic - [address] [place] [address] Stanley Jim MD [address] [place] [address] 06/23/2025 8:20 AM CDT Office Visit [facility] [address] [facility] [place] [address] Ella Hodge [facility] [address] [facility] [place] [address] documented as of this encounter Visit Diagnoses Not on filedocumented in this encounter Additional Health Concerns Infection Onset Date Last Indicated Resolved Time COVID-19 Rule Out 10/04/2021 10/04/2021 10/04/2021 11:[address] SWEEPER OPERATOR COVID-19 Confirmed 10/04/2021 10/04/2021 12:[address] SWEEPER OPERATOR COVID-19 Rule Out 10/05/2021 10/05/2021 10/05/2021 2:[address] SWEEPER OPERATOR COVID-19 Rule Out 07/22/2022 07/23/2022 07/23/2022 6:54 PM CDT COVID-19 Rule Out 08/07/2024 08/07/2024 08/09/2024 9:34 AM CDT COVID-19 Rule Out 10/12/2024 10/12/2024 10/14/2024 2:[address] SWEEPER OPERATOR documented as of this encounter Care Teams Machine Shop Worker Relationship Specialty Start Date End Date Ziggy Harding MD [address] [place] [address] PCP - General FAMILY PRACTICE 09/21/18 11/10/19 Demetrio Shore MD [address] [place] [address] PCP - General FAMILY PRACTICE 11/11/19 03/29/23 Vinita Mckeon NP [address] [place] [address] PCP - General NURSE PRACTITIONER 03/30/23 05/08/23 Ella Hodge FNP [address] [place] [address] PCP - General NURSE PRACTITIONER 05/09/23 Joon Lewis PA [address] [place] [address] PHYSICIAN COOK 3 PASTRY 05/09/21 Callie Guerrero DO [address] [place] [address] Coil Machine Operator OBGYN 06/14/21 [place] [address] [phone] GASTROENTEROLOGY 06/14/21 Sergey Ramey PA [address] [facility] [place] [address] PHYSICIAN COOK 3 PASTRY 06/14/21 Jony Pruitt, DPM [address] [place] [address], [address] [place] [address] Referring Physician PODIATRY/SURGERY 06/14/21 [place] [address] [place] [address] ORTHOPAEDIC SURGERY 06/14/21 documented as of this encounter
--- OUTSIDE RECORDS SUMMARY | 2024-10-24 12:01 | XMS_ITS | Encounter Summary ---
Author Organization [facility] Address [address] [place] [address]. [place], [place] [address] [place] [address] Care Team Providers Care Monotyper Name Role Phone Unavailable Primary Care Provider Unavailabl e Encounter Details Date Type Department Care Team (Late st Contact Info) Description 06/03/[address] [facility] Clinics Conversion Meagan Grullon, [place] [address] [place] [address] Social History Tobacco Use Types Packs/Day Years Used Date Smoking Tobacco: Never Assessed Comments Unknown Sex and Gender Information Value Date Recorded Sex Assigned at Not on file Legal Sex Female 5:51 PM CDT Gender Identity Not on file Sexual Orientation Not on file documented as of this encounter Last Filed Vital Signs Vital Sign Reading Time Taken Comments Blood Pressure 120/72 06/03/2018 3:45 PM CDT Pulse 72 06/03/2018 3:45 PM CDT Temperature - - Respiratory Rate - - Oxygen Saturation - - Inhaled Oxygen Concentration - - Weight 67.8 kg (149 lb 7 oz) 06/03/2018 3:45 PM CDT Height 152.4 cm (5') 06/03/2018 3:45 PM CDT Body Mass Index 29.19 06/03/2018 3:45 PM CDT documented in this encounter Plan of Treatment Upcoming Encounters Date Type Department Care Team (Late st Contact Info) Description 11/02/2024 8:00 AM WIRE ANNEALER Office Visit [place] [address] [place] [address] Ella Hodge [facility] [address] [facility] [address] [place], [place] [phone] 01/19/2025 11:00 AM CDT Office Visit [facility] Pulmonology Specialty Clinic - [address] [place] [address] Stanley Jim MD [address] [place] [address] 06/23/2025 8:20 AM CDT Office Visit [address] [place] [address] Ella Hodge [facility] [address] [facility] [place] [address] documented as of this encounter Visit Diagnoses Not on filedocumented in this encounter
--- OUTSIDE RECORDS SUMMARY | 2024-10-24 12:01 | XMS_ITS | Encounter Summary ---
Author Organization [facility] Address [address] [place] [address]. [place], [place] [address] [place] [address] Care Team Providers Care Network Support Engineer Name Role Phone Unavailable Primary Care Provider Unavailabl e Encounter Details Date Type Department Care Team (Late Contact Info) Description 06/16/2017 Abstract [facility] Conversion Md, Generic Conversion, Social [...] Contact Info) Description 11/02/2024 8:00 AM DIRECTOR TRANSLATIONAL Office Visit [facility] [address] [place] [address] Ella Hodge FNP [address] [place] [address] 01/19/2025 11:00 AM CDT Office Visit [facility] [place] [address] [place] [address] Stanley Jim MD [address] [place] [address] 06/23/2025 8:20 AM CDT Office Visit [address] [place] [phone] Ella Hodge, [address] [place] [address] documented as of this encounter Visit Diagnoses Not on filedocumented in this encounter
--- OUTSIDE RECORDS SUMMARY | 2024-10-24 12:01 | XMS_ITS | Encounter Summary ---
Author Organization [facility] Address [facility] [place], [place] [address] [place] [address] Care Team Providers Care Credit Risk Officer Name Role Phone Ziggy Harding MD Primary Care Provider [phone] Encounter Details Date Type Department Care Team (Late st Contact Info) Description 10/15/2018 Orders Only [address] [place], [place] [id number] Yesi Burnett LPN Social History Tobacco Use Types Packs/Day Years Used Date Smoking Tobacco: Never Assessed Comments Unknown Sex and Gender Information Value Date Recorded Sex Assigned at Not on file Legal Sex Female 5:51 PM CDT Gender Identity Not on file Sexual Orientation Not on file documented as of this encounter Progress Notes * Yesi Burnett LPN - 10/16/2018 9:37 AM CST Medication refilled. ICAL PROCESSOR * THEODORA Kendall - 10/16/2018 8:01 AM CST Fine to refill zantac daily #90 0 refill. ICAL PROCESSOR * Yesi Burnett LPN - 10/16/2018 7:17 AM CST Patient asking for refill on ranitidine 150 mg tablet. Voices I would like to use it daily if I can . ICAL PROCESSOR documented in this encounter Plan of Treatment Upcoming Encounters Date Type Department Care Team (Late st Contact Info) Description 11/02/2024 8:00 AM CHEMICAL PROCESSOR Office Visit [address] [place] [address] Ella Hodge [facility] [address] [facility] [place] [address] 01/19/2025 11:00 AM CDT Office Visit [facility] [address] [place] [address] Stanley Jim MD [address] [place] [address] 06/23/2025 8:20 AM CDT Office Visit [address] [place] [address] Ella Hodge [address] [place] [address] documented as of this encounter Visit Diagnoses Diagnosis Heartburn- Primary documented in this encounter Care Teams Credit Risk Officer Relationship Specialty Start Date End Date Ziggy Harding MD [address] [place] [address] [place] [address] PCP - General FAMILY PRACTICE 09/21/18 11/10/19 documented as of this encounter
--- OUTSIDE RECORDS SUMMARY | 2024-10-24 12:01 | XMS_ITS | Encounter Summary ---
Author Organization [facility] Address [address] [place] [address]. [place], [place] [address] [place] [address] Care Team Providers Care Net Mobile Developer Name Role Phone Unavailable Primary Care Provider Unavailabl e Encounter Details Date Type Department Care Team (Late Contact Info) Description 12/17/2017 Abstract [facility] Conversion Md, Generic Conversion, Social History [...] st Contact Info) Description 11/02/2024 8:00 AM LINK WIRE FABRIC MACHINE TENDER Office Visit [facility] [address] [place] [address] Ella Hodge FNP [address] [place] [address] 01/19/2025 11:00 AM CDT Office Visit [facility] Pul[facility] - [place] [address] [place] [address] Stanley Jim MD [address] [place] [address] 06/23/2025 8:20 AM CDT Office Visit [address] [place] [id number] Ella Hodge, [address] [place] [address] documented as of this encounter Visit Diagnoses Not on filedocumented in this encounter
--- OUTSIDE RECORDS SUMMARY | 2024-10-24 12:01 | XMS_ITS | Encounter Summary ---
Author Organization [facility] Address [facility]6 [facility]. [place], [place] [address] [place] [address] Care Team Providers Care Sales And Distribution Clerk Name Role Phone Ziggy Harding MD Primary Care Provider Demetrio Shore MD Primary Care Pr ovider Unavailable Joon Lewis Unavailable [phone] BradfordJeri whartondre Unavailable [phone] George Osorio MD Unavailable Sergey Ramey Unavailable Jony Pruitt DPM Unavailable Gama Graves MD Unavailable [phone] Encounter Details Date Type Department Care Team (Late st Contact Info) Description 01/09/2018 Abstract [facility] CONVERSION [address] [place] [address] Renu Vigil MD [address] [address] Social History Tobacco Use Types Packs/Day Years Used Date Smoking Tobacco: Never Assessed AUDIT-C Answer Date Recorded Frequency of Alcohol Consumption Never 10/14/2019 Average Number of Drinks Not on file 019 Frequency of Binge Drinking Not on file 09/26 PHQ-2 Answer Date Recorded PHQ-2 Score - If the patient scores above 3, please move on to questions 3-9 0 07/16/2021 Comments Unknown Sex and Gender Information Value [...] st Contact Info) Description 11/02/2024 8:00 AM PAPER AND PULP MILL WORKER Office Visit [address] [place] [address] [facility] [address] [place] [address] 01/19/2025 11:00 AM CDT Office Visit [facility] [address] [place] [address] Stanley Jim MD [address] [place] [address] 06/23/2025 8:20 AM CDT Office Visit [address] [place] [address] Ella Hodge [address] [place] [address] documented as of this encounter Visit Diagnoses Not on filedocumented in this encounter Care Teams Sales And Distribution Clerk Relationship Specialty Start Date End Date Ziggy Harding MD [address] [place] [address] PCP - General FAMILY PRACTICE 09/21/18 11/10/19 Demetrio Shore MD [address] [place] [address] PCP - General FAMILY PRACTICE 11/11/19 03/29/23 Joon Lewis PA [address] [place] [address] PHYSICIAN SET UP MOLD TECHNICIAN 05/09/21 Callie Guerrero DO [address] [place] [address] Pest Control Worker Helper OBGYN 06/14/21 [place] [address] [id number] GASTROENTEROLOGY 06/14/21 Sergey Ramey PA [address] [facility] [address] [place] [phone] PHYSICIAN SET UP MOLD TECHNICIAN 06/14/21 Jony Pruitt DPM [address] [place] [address], [address] [place] [address] Referring Physician PODIATRY/SURGERY 06/14/21 [place] [address] [place] [address] ORTHOPAEDIC SURGERY 06/14/21 documented as of this encounter
--- OUTSIDE RECORDS SUMMARY | 2024-10-24 12:01 | XMS_ITS | Encounter Summary ---
Author Organization [facility] Address [facility]. [place], [place] [address] [place] [address] Care Team Providers Care Fisher Name Role Phone Unavailable Primary Care Provider Unavailabl e Reason for Visit * Reason Onset Date Comments Question 09/08/2018 Encounter Details Date Type Department Care Team (Late st Contact Info) Description 09/08/2018 Telephone [facility] 201 [facility] [place] [address] Jia Leal [facility] [address] [place], [place] [id number] Question Social History Tobacco Use Types Packs/Day Years Used Date Smoking Tobacco: Never Assessed Comments Unknown Sex and Gender Information Value Date Recorded Sex Assigned at Not on file Legal Sex Female 5:51 PM CDT Gender Identity Not on file Sexual Orientation Not on file documented as of this encounter Progress Notes * Renetta Gimenez LPN - 09/09/2018 9:13 AM CST Spoke with pt. Re: symptoms. Pt. States that she and her had the GI flu over weekend. States that they are feeling better now. Spoke with pt. Re: diet instructions and to follow up in office if symptoms persist or worsen. L SHARPENER OPERATOR documented in this encounter Plan of Treatment Upcoming Encounters Date Type Department Care Team (Late st Contact Info) Description 11/02/2024 8:00 AM DRILL SHARPENER OPERATOR Office Visit [address] [place] [address] Ella Hodge FNP [address] [place] [address] 01/19/2025 11:00 AM CDT Office Visit [facility] Pul[facility]ty Clinic - [address] [place] [address] Stanley Jim MD [address] [place] [address] 06/23/2025 8:20 AM CDT Office Visit [address] [place] [address] Ella Hodge FNP [address] [place] [address] documented as of this encounter Visit Diagnoses Not on filedocumented in this encounter
--- OUTSIDE RECORDS SUMMARY | 2024-10-24 12:01 | XMS_ITS | Encounter Summary ---
Author Organization [facility] Address [facility]6 [facility]. [place], [place] [address] [place] [address] Care Team Providers Care Audiovisual Lead Technician Name Role Phone Ziggy Harding MD Primary Care Provider [phone] Demetrio Shore MD Primary Care Pr ovider Unavailable Joon Lewis Unavailable [phone] Cesar Callie DO Unavailable George Osorio MD Unavailable Sergey Ramey Unavailable Jony Pruitt DPM Unavailable Gama Graves MD Unavailable [phone] Encounter Details Date Type Department Care Team (Late st Contact Info) Description 02/26/2017 Abstract [facility] [address] [place] [address] Meagan Grullon, ACCORDION REPAIRER [address] [place] [address] Social History Tobacco Use Types Packs/Day Years [...] st Contact Info) Description 11/02/2024 8:00 AM CASINO ATTENDANT Office Visit [address] [place] [address] Ella Hodge FNP 201 [facility] [place] [address] 01/19/2025 11:00 AM CDT Office Visit [facility] [address] [facility] [place] [address] Stanley Jim MD [address] [place] [address] 06/23/2025 8:20 AM CDT Office Visit [address] [place] [address] Ella Hodge FNP 201 [facility] [place] [address] documented as of this encounter Visit Diagnoses Not on filedocumented in this encounter Care Teams Audiovisual Lead Technician Relationship Specialty Start Date End Date Ziggy Harding MD 201 [facility] [place] [address] PCP - General FAMILY PRACTICE 09/21/18 11/10/19 Demetrio Shore MD [address] [place] [address] PCP - General FAMILY PRACTICE 11/11/19 03/29/23 Joon Lewis PA [address] [place] [address] PHYSICIAN AMPOULE EXAMINER 05/09/21 Callie Guerrero DO [address] [place] [address] Business Continuity Director OBGYN 06/14/21 [place] [address] [phone] GASTROENTEROLOGY 06/14/21 Sergey Ramey PA 200 [facility] [place] [address] PHYSICIAN AMPOULE EXAMINER 06/14/21 Jony Pruitt DPM [address] [place] [address], [address] [place] [address] Referring Physician PODIATRY/SURGERY 06/14/21 [place] [address] [place] [address] ORTHOPAEDIC SURGERY 06/14/21 documented as of this encounter
--- OUTSIDE RECORDS SUMMARY | 2024-10-24 12:01 | XMS_ITS | Encounter Summary ---
Author Organization [facility] Address [address] [place] [address]. [place], [place] [address] [place] [address] Care Team Providers Care Cco Name Role Phone Unavailable Primary Care Provider Unavailabl e Encounter Details Date Type Department Care Team (Late Contact Info) Description 01/09/2018 Abstract [facility] Clinics Conversion Md, Generic Conversion, Social History [...] Contact Info) Description 11/02/2024 8:00 AM PROJECT ENGINEER CHEMICALS Office Visit [facility] [address] [place] [address] Ella Hodge FNP [address] [place] [address] 01/19/2025 11:00 AM CDT Office Visit [facility] Pul[facility] [place] [address] [place] [address] Stanley Jim MD [address] [place] [address] 06/23/2025 8:20 AM CDT Office Visit [address] [place] [id number] Ella Hodge, [address] [place] [address] documented as of this encounter Visit Diagnoses Not on filedocumented in this encounter
--- OUTSIDE RECORDS SUMMARY | 2024-10-24 12:01 | XMS_ITS | Encounter Summary ---
Author Organization [facility] Address [address] [place] [address]. [place], [place] [address] [place] [address] Care Team Providers Care Motorcycle Engine Assembler Name Role Phone Unavailable Primary Care Provider Unavailabl e Encounter Details Date Type Department Care Team (Late Contact Info) Description 05/06/2018 Abstract [facility] Clinics Conversion Md, Generic Conversion, Social History [...] st Contact Info) Description 11/02/2024 8:00 AM FAVOR MAKER Office Visit [facility] [address] [place] [address] Ella Hodge FNP [address] [place] [address] 01/19/2025 11:00 AM CDT Office Visit [facility] Medical [facility] Pul[facility] [place] [address] [place] [address] Stanley Jim MD [address] [place] [address] 06/23/2025 8:20 AM CDT Office Visit [address] [place] [phone] Ella Hodge, [address] [place] [address] documented as of this encounter Visit Diagnoses Not on filedocumented in this encounter
--- OUTSIDE RECORDS SUMMARY | 2024-10-24 12:01 | XMS_ITS | Encounter Summary ---
Author Organization [facility] Address [facility]6 [facility]. [place], [place] [address] [place] [address] Care Team Providers Care Mail Examiner Name Role Phone Ziggy [place] MD Primary Care Provider Demetrio Shore MD Primary Care Pr ovider Unavailable Joon Lewis Unavailable [phone] Cesar Callie DO Unavailable George Osorio MD Unavailable Sergey Ramey Unavailable Jony Pruitt DPM Unavailable [phone] Gama Graves MD Unavailable [phone] Encounter Details Date Type Department Care Team (Late st Contact Info) Description 08/02/2017 Abstract [facility] [address] [place] [address] Meagan Grullon, HEAD OF ICT [address] [place] [address] Social History Tobacco Use Types Packs/Day Years [...] st Contact Info) Description 11/02/2024 8:00 AM ASSAULT AMPHIBIOUS VEHICLE CREWMAN Office Visit [address] [place] [address] Ella Hodge FNP [address] [facility] [place] [address] 01/19/2025 11:00 AM CDT Office Visit [facility] Medical Group Pulmonology Specialty Clinic [facility] [address] [facility] [place] [address] Stanley Jim MD [address] [place] [address] 06/23/2025 8:20 AM CDT Office Visit [address] [place] [address] Ella Hodge FNP [address] [facility] [place] [address] documented as of this encounter Visit Diagnoses Not on filedocumented in this encounter Care Teams Mail Examiner Relationship Specialty Start Date End Date Ziggy [place] MD [address] [facility] [place] [address] PCP - General FAMILY PRACTICE 09/21/18 11/10/19 Demetrio Shore MD [address] [place] [address] PCP - General FAMILY PRACTICE 11/11/19 03/29/23 Joon Lewis PA [address] [place] [address] PHYSICIAN DIRECTOR RIVER RESTORATION 05/09/21 Callie Guerrero DO [address] [place] [address] Janitor And Cleaner OBGYN 06/14/21 [place] [address] [phone] GASTROENTEROLOGY 06/14/21 Sergey Ramey PA 200 [facility] [place] [phone] PHYSICIAN DIRECTOR RIVER RESTORATION 06/14/21 Jony Pruitt DPM [address] [place] [address], [address] [place] [address] Referring Physician PODIATRY/SURGERY 06/14/21 [place] [address] [place] [address] ORTHOPAEDIC SURGERY 06/14/21 documented as of this encounter
--- OUTSIDE RECORDS SUMMARY | 2024-10-24 12:01 | XMS_ITS | Encounter Summary ---
Author Organization [facility] Address [address] [place] [address]. [place], [place] [address] [place] [address] Care Team Providers Care Cold Type Artist Name Role Phone Ziggy [place] MD Primary Care Provider [phone] Reason for Visit * Reason Comments Mammogram (SCAN) Image (SCAN) Encounter Details Date Type Department Care Team (Late Contact Info) Description 11/04/2018 Scan HEALTH INFO SRVCS Scanned, Documents Mammogram (SCAN); Image (SCAN) Social History Tobacco Use [...] Encounters Date Type Department Care Team (Late Contact Info) Description 11/02/2024 8:00 AM DIRECTOR HEART Office Visit [facility] [address] [place] [address] Ella Hodge FNP [address] [place] [address] 01/19/2025 11:00 AM CDT Office Visit [facility] Medical [facility] Pul[facility] [place] [address] [place] [address] Stanley Jim MD [address] [facility] [address] [place] [address] 06/23/2025 8:20 AM CDT Office Visit [facility] 201 [facility] [place] [address] Ella Hodge FNP [address] [place] [phone] documented as of this encounter Procedures Procedure Name Priority Date/Time Associated Diagnosis Comments BONE DENSITY GENERIC (SCAN ORDER) Routine 11/04/2018 MAMMOGRAM GENERIC (SCAN ORDER) Routine 11/04/2018 documented in this encounter Results * BONE DENSITY (11/04/2018) Anatomical Region Laterality Modality Other us Documents Scanned SCANNING Edited Result - Final * MAMMOGRAM (11/04/2018) Anatomical Region Laterality Modality Other us Documents Scanned SCANNING Edited Result - Final documented in this encounter Visit Diagnoses Not on filedocumented in this encounter Care Teams Cold Type Artist Relationship Specialty Start Date End Date Ziggy [place] MD [address] [place] [address] [place] [address] PCP - General FAMILY PRACTICE 09/21/18 11/10/19 documented as of this encounter
--- OUTSIDE RECORDS SUMMARY | 2024-10-24 12:01 | XMS_ITS | Encounter Summary ---
Author Organization [facility] Address [facility]6 [facility] [place], [place] [address] [place] [address] Care Team Providers Care Transit Operator Name Role Phone Ziggy [place] MD Primary Care Provider [phone] Reason for Visit * Reason Onset Date Comments Refill Request 09/23/2018 Encounter Details Date Type Department Care Team (Late st Contact Info) Description 09/23/[address] CARE [place], [place] [address] Meagan Grullon, [address] [place], [place] [address] Refill Request Social History Tobacco Use Types Packs/Day Years Used Date Smoking Tobacco: Never Assessed Comments Unknown Sex and Gender Information Value Date Recorded Sex Assigned at Not on file Legal Sex Female 5:51 PM CDT Gender Identity Not on file Sexual Orientation Not on file documented as of this encounter Progress Notes * Letty Acevedo LPN - 09/23/2018 9:37 AM CST Medication refilled pt is due for OV in December per last OV. CTOR OF STRATEGIC ALLIANCES documented in this encounter Plan of Treatment Upcoming Encounters Date Type Department Care Team (Late st Contact Info) Description 11/02/2024 8:00 AM DIRECTOR OF STRATEGIC ALLIANCES Office Visit [address] [place] [address] Ella Hodge [facility] 201 [facility] [place] [address] 01/19/2025 11:00 AM CDT Office Visit [facility] Pul[facility]ty [facility] - [place] 200 [facility] [place] [address] Stanley Jim MD [address] [place] [address] 06/23/2025 8:20 AM CDT Office Visit [address] [place] [address] Ella Hodge [facility] 201 [facility] [place] [address] documented as of this encounter Visit Diagnoses Diagnosis Hyperlipidemia- Primary Other and unspecified hyperlipidemia Chronic rhinitis documented in this encounter Care Teams Transit Operator Relationship Specialty Start Date End Date Ziggy [place] MD 201 [facility] [place] [address] PCP - General FAMILY PRACTICE 09/21/18 11/10/19 documented as of this encounter
--- OUTSIDE RECORDS SUMMARY | 2024-10-24 12:01 | XMS_ITS | Encounter Summary ---
Author Organization [facility] Address [address] [place] [address]. [place], [place] [address] [place] [address] Care Team Providers Care Optometry Professor Name Role Phone Ziggy [place] MD Primary Care Provider [phone] Reason for Visit * Reason Comments Therapy Report (SCAN) APEXNETWORK PHYSIC AL THERAPY Encounter Details Date Type Department Care Team (Late st Contact Info) Description 11/19/2018 Scan HEALTH INFO SRVCS Scanned, Documents Therapy Report (SCAN) (APEXNETWORK PHYSICAL THERAPY) Social History Tobacco Use Types [...] Contact Info) Description 11/02/2024 8:00 AM TECHNICAL SALES SUPPORT SPECIALIST Office Visit [facility] [address] [place] [address] Ella Hodge FNP [address] [place] [address] 01/19/2025 11:00 AM CDT Office Visit [facility] Medical [facility] - [place] [address] [place] [address] Stanley Jim MD [address] [address] 06/23/2025 8:20 AM CDT Office Visit [facility] 201 [facility] [place] [address] Ella Hodge [facility] [address] [place] [phone] documented as of this encounter Visit Diagnoses Not on filedocumented in this encounter Care Teams Optometry Professor Relationship Specialty Start Date End Date Ziggy [place] MD [address] [place] [address] [place], [place] [id number] PCP - General FAMILY PRACTICE 09/21/18 11/10/19 documented as of this encounter
--- OUTSIDE RECORDS SUMMARY | 2024-10-24 12:01 | XMS_ITS | Encounter Summary ---
Author Organization [facility] Address [facility]6 [facility] [place], [place] [address] [place] [address] Care Team Providers Care Physical Plant Employee Name Role Phone Ziggy [place] MD Primary Care Provider Demetrio Shore MD Primary Care Pr ovider Unavailable Joon Lewis Unavailable [phone] Cesar Callie DO Unavailable [phone] George Osorio MD Unavailable Sergey Ramey Unavailable Jony Pruitt DPM Unavailable Gama Graves MD Unavailable [phone] Encounter Details Date Type Department Care Team (Late st Contact Info) Description 06/13/2017 Abstract [facility] Mammography [address] [place] [address] Meagan Grullon, ARCHITECTURAL PROJECT MANAGER [address] [place] [address] Social History Tobacco Use Types Packs/Day Years [...] st Contact Info) Description 11/02/2024 8:00 AM TOP COLLAR MAKER Office Visit [address] [place] [address] Ella Hodge [facility] [address] [facility] [address] 01/19/2025 11:00 AM CDT Office Visit [facility] [address] [place] [address] Stanley Jim MD [address] [place] [address] 06/23/2025 8:20 AM CDT Office Visit [address] [place] [address] Ella Hodge [address] [place] [address] documented as of this encounter Visit Diagnoses Not on filedocumented in this encounter Care Teams Physical Plant Employee Relationship Specialty Start Date End Date Ziggy [place] MD [address] [facility] [address] PCP - General FAMILY PRACTICE 09/21/18 11/10/19 Demetrio Shore MD [address] [place] [address] PCP - General FAMILY PRACTICE 11/11/19 03/29/23 Joon Lewis PA [address] [place] [address] PHYSICIAN PROGRAM SCHEDULE CLERK 05/09/21 Callie Guerrero DO [address] [place] [address] Drilling Superintendent OBGYN 06/14/21 [place] [address] [phone] GASTROENTEROLOGY 06/14/21 Sergey Ramey PA 200 [facility] [place] [address] PHYSICIAN PROGRAM SCHEDULE CLERK 06/14/21 Jony Pruitt DPM [address] [place] [address], [address] [place] [address] Referring Physician PODIATRY/SURGERY 06/14/21 [place] [address] [place] [address] ORTHOPAEDIC SURGERY 06/14/21 documented as of this encounter
--- OUTSIDE RECORDS SUMMARY | 2024-10-24 12:01 | XMS_ITS | Encounter Summary ---
Author Organization [facility] Address [address] [place] [address]. [place], [place] [address] [place] [address] Care Team Providers Care Manager Emergency Name Role Phone Ziggy Harding MD Primary Care Provider [phone] Reason for Referral * Physical Medicine (Routine) - Closed Specialty Diagnoses / Procedures Referred By Chet nicholson Referred To Contact PHYSICAL THERAPY Diagnoses Hip pain Ella Hodge FNP [address] [place] [address] [place] [address] Phone: tel: fax: Referral ID Status Reason Start Date Expiration Date V isits Requested Visits Authorized [id number] Closed Physical Therapy 11/13/2018 12/13/2019 100 100 NG SALVAGE WORKER Reason for Visit * Reason Onset Date Comments Orders 11/13/2018 would like order for physical therapy Encounter Details Date Type Department Care Team (Late st Contact Info) Description 11/13/[address] [place] [address] Ella Hodge FNP [address] [place] [address] [place] [address] Orders (would like order for physical therapy) Social History Tobacco Use Types Packs/Day Years Used Date Smoking Tobacco: Never Smokeless Tobacco: Never Comments Unknown Sex and Gender Information Value Date Recorded Sex Assigned at Not on file Legal Sex Female 5:51 PM CDT Gender Identity Not on file Sexual Orientation Not on file documented as of this encounter Progress Notes * Yesi Burnett LPN - 11/13/2018 11:44 AM CST Patient told. Order made. NG SALVAGE WORKER * THEODORA Kendall - 11/13/2018 11:35 AM CST Fine to give order for PT. NG SALVAGE WORKER * Sara Lacey - 11/13/2018 11:09 AM CST Patient called and said chiropractor is not working and she would like [facility] to set her up with physical therapy, please call [phone] NG SALVAGE WORKER documented in this encounter Plan of Treatment Upcoming Encounters Date Type Department Care Team (Late st Contact Info) Description 11/02/2024 8:00 AM SPRING SALVAGE WORKER Office Visit [address] [place] [address] Ella Hodge FNP 201 [facility] [place] [place] [address] 01/19/2025 11:00 AM CDT Office Visit [facility] [place] 200 [facility] [address] Stanley Jim MD [address] [place] [address] 06/23/2025 8:20 AM CDT Office Visit [address] [place] [address] Ella Hodge FNP 201 [facility] [place] [address] Scheduled Referrals Name Type Priority Associated Diagnoses Orde r Schedule Ambulatory referral to Physical Therapy Referral Routine Hip pain Ordered: 11/13/2018 documented as of this encounter Visit Diagnoses Diagnosis Hip pain- Primary Pain in joint, pelvic region and thigh documented in this encounter Care Teams Manager Emergency Relationship Specialty Start Date End Date Ziggy Harding MD 201 [facility] [place] [address] PCP - General FAMILY PRACTICE 09/21/18 11/10/19 documented as of this encounter
--- OUTSIDE RECORDS SUMMARY | 2024-10-24 12:01 | XMS_ITS | Encounter Summary ---
Author Organization [facility] Address [address] [place] [address]. [place], [place] [address] [place] [address] Care Team Providers Care Hybrid Corn Breeder Name Role Phone Unavailable Primary Care Provider Unavailabl e Encounter Details Date Type Department Care Team (Late Contact Info) Description 06/13/2017 Abstract [facility] Conversion Md, Generic Conversion, Social [...] st Contact Info) Description 11/02/2024 8:00 AM SEXUAL ASSAULT COUNSELOR Office Visit [facility] [address] [address] Ella Hodge FNP [address] [place] [address] 01/19/2025 11:00 AM CDT Office Visit [facility] Medical Group [facility] [place] [address] [place] [address] Stanley Jim MD [address] [place] [address] 06/23/2025 8:20 AM CDT Office Visit [address] [place] [id number] Ella Hodge, [address] [place] [address] documented as of this encounter Visit Diagnoses Not on filedocumented in this encounter
--- OUTSIDE RECORDS SUMMARY | 2024-10-24 12:01 | XMS_ITS | Encounter Summary ---
Author Organization [facility] Address [facility]. [place], [place] [address] [place] [address] Care Team Providers Care Drill Press Operator Helper Name Role Phone Ziggy Harding MD Primary Care Provider Demetrio Shore MD Primary Care Pr ovider Unavailable Joon Lewis Unavailable [phone] Callie Guerrero DO Unavailable [phone] George Osorio MD Unavailable Sergey Ramey Unavailable [phone] Jony Pruitt DPM Unavailable Gama Graves MD Unavailable [phone] Encounter Details Date Type Department Care Team (Late st Contact Info) Description 11/04/2018 Abstract [facility] Mammography [address] [place] [address] Prema Pruitt, PRIVATE EQUITY ASSOCIATE [address] [place] [address] Social History Tobacco Use Types Packs/Day Years [...] st Contact Info) Description 11/02/2024 8:00 AM RUG HOOKER Office Visit [address] [place] [address] Ella Hodge [facility] [address] [facility] [place] [address] 01/19/2025 11:00 AM CDT Office Visit [facility] - [address] [place] [address] Stanley Jim MD [address] [place] [address] 06/23/2025 8:20 AM CDT Office Visit [address] [place] [address] Ella Hodge [facility] [address] [facility] [place] [address] documented as of this encounter Visit Diagnoses Not on filedocumented in this encounter Care Teams Drill Press Operator Helper Relationship Specialty Start Date End Date Ziggy Harding MD [address] [facility] [place] [address] PCP - General FAMILY PRACTICE 09/21/18 11/10/19 Demetrio Shore MD [address] [place] [address] PCP - General FAMILY PRACTICE 11/11/19 03/29/23 Joon Lewis PA [address] [place] [address] PHYSICIAN PERSONAL SERVICE WORKERS 05/09/21 Callie Guerrero DO [address] [place] [address] Solar Energy Sales Specialist OBGYN 06/14/21 [place] [address] [address] GASTROENTEROLOGY 06/14/21 Sergey Ramey PA 200 [facility] [place] [address] PHYSICIAN PERSONAL SERVICE WORKERS 06/14/21 Jony Pruitt DPM [address] [place] [address], [address] [place] [address] Referring Physician PODIATRY/SURGERY 06/14/21 [place] [address] [place] [address] ORTHOPAEDIC SURGERY 06/14/21 documented as of this encounter
--- OUTSIDE RECORDS SUMMARY | 2024-10-24 12:01 | XMS_ITS | Encounter Summary ---
Author Organization [facility] Address [address] [place] [address]. [place], [place] [address] [place] [address] Care Team Providers Care Solar Electric/Photovoltaic Installer Name Role Phone Unavailable Primary Care Provider Unavailabl e Encounter Details Date Type Department Care Team (Late st Contact Info) Description 07/06/2018 Abstract [facility] Conversion Ella Hodge, [address] [place] [address] Social History Tobacco Use Types Packs/Day Years Used Date Smoking Tobacco: Never Assessed Comments Unknown Sex and Gender Information Value Date Recorded Sex Assigned at Not on file Legal Sex Female 5:51 PM CDT Gender Identity Not on file Sexual Orientation Not on file documented as of this encounter Last Filed Vital Signs Vital Sign Reading Time Taken Comments Blood Pressure 130/60 07/06/2018 4:15 PM CDT Pulse 80 07/06/2018 4:15 PM CDT Temperature - - Respiratory Rate - - Oxygen Saturation - - Inhaled Oxygen Concentration - - Weight 65.3 kg (144 lb) 07/06/2018 4:15 PM CDT Height 152.4 cm (5') 07/06/2018 4:15 PM CDT Body Mass Index 28.12 07/06/2018 4:15 PM CDT documented in this encounter Plan of Treatment Upcoming Encounters Date Type Department Care Team (Late st Contact Info) Description 11/02/2024 8:00 AM STRAP MAKER Office Visit [address] [place] [address] Ella Hodge [facility] 201 [facility] [place] [address] 01/19/2025 11:00 AM CDT Office Visit [facility] Pul[facility]ology Specialty Clinic - [address] [place] [address] Stanley Jim MD [address] [place] [address] 06/23/2025 8:20 AM CDT Office Visit [address] [place] [address] Ella Hodge [facility] 201 [facility] [place] [address] documented as of this encounter Visit Diagnoses Not on filedocumented in this encounter
--- OUTSIDE RECORDS SUMMARY | 2024-10-24 12:01 | XMS_ITS | Encounter Summary ---
Author Organization [facility] Address [address] [place] [address]. [place], [place] [address] [place] [address] Care Team Providers Care Pipe Line Inspector Name Role Phone Unavailable Primary Care Provider Unavailabl e Encounter Details Date Type Department Care Team (Late Contact Info) Description 08/02/2017 Abstract [facility] Conversion Meagan Grullon, [place] [address] [place] [address] Social History Tobacco Use Types Packs/Day Years Used Date Smoking Tobacco: Never Assessed Comments Unknown Sex and Gender Information Value Date Recorded Sex Assigned at Not on file Legal Sex Female 5:51 PM CDT Gender Identity Not on file Sexual Orientation Not on file documented as of this encounter Last Filed Vital Signs Vital Sign Reading Time Taken Comments Blood Pressure 114/72 08/02/2017 9:09 AM CDT Pulse 72 08/02/2017 9:09 AM CDT Temperature - - Respiratory Rate - - Oxygen Saturation - - Inhaled Oxygen Concentration - - Weight 68 kg (150 lb) 08/02/2017 9:09 AM CDT Height 152.4 cm (5') 08/02/2017 9:09 AM CDT Body Mass Index 29.29 08/02/2017 9:09 AM CDT documented in this encounter Plan of Treatment Upcoming Encounters Date Type Department Care Team (Late st Contact Info) Description 11/02/2024 8:00 AM SUPERVISOR BLASTING Office Visit [facility] [address] [place] [address] [facility] 201 [facility] [place] [address] 01/19/2025 11:00 AM CDT Office Visit [facility] Medical Group Pulmonology Specialty Clinic - [address] [place] [address] Stanley Jim MD [address] [place] [address] 06/23/2025 8:20 AM CDT Office Visit [facility] 201 [facility] [place] [address] [facility] 201 [facility] [place] [address] documented as of this encounter Visit Diagnoses Not on filedocumented in this encounter
--- OUTSIDE RECORDS SUMMARY | 2024-10-24 12:01 | XMS_ITS | Encounter Summary ---
Author Organization [facility] Address [facility]. [place], [place] [address] [place] [address] Care Team Providers Care Driver Supervisor Name Role Phone Ziggy Harding MD Primary Care Provider [phone] Demetrio Shore MD Primary Care Pr ovider Unavailable Joon Lewis Unavailable [phone] Callie Guerrero DO Unavailable [phone] George Osorio MD Unavailable Sergey Ramey Unavailable [phone] Jony Pruitt DPM Unavailable [phone] Gama Graves MD Unavailable [phone] Encounter Details Date Type Department Care Team (Late st Contact Info) Description 08/28/2017 Abstract [facility] [address] [place] [address] [place] [address] [place] [address] Social History Tobacco Use Types Packs/Day Years [...] st Contact Info) Description 11/02/2024 8:00 AM DRIVER GUARD Office Visit [address] [place] [address] Ella Hodge FNP [address] [facility] [place] [address] 01/19/2025 11:00 AM CDT Office Visit [facility] Medical Group Pulmonology Specialty Clinic [facility] 200 [facility] [place] [address] Stanley Jim MD [address] [place] [address] 06/23/2025 8:20 AM CDT Office Visit [address] [place] [address] Ella Hodge FNP [address] [facility] [place] [address] documented as of this encounter Visit Diagnoses Not on filedocumented in this encounter Care Teams Driver Supervisor Relationship Specialty Start Date End Date Ziggy Harding MD [address] [facility] [place] [address] PCP - General FAMILY PRACTICE 09/21/18 11/10/19 Demetrio Shore MD [address] [facility] [place] [address] PCP - General FAMILY PRACTICE 11/11/19 03/29/23 Joon Lewis PA [address] [facility] [place] [address] PHYSICIAN DISTRICT OPERATIONS MANAGER 05/09/21 Callie Guerrero DO [address] [place] [address] Intrusion Analyst OBGYN 06/14/21 [place] [address] [id number] GASTROENTEROLOGY 06/14/21 Sergey Ramey PA 200 [facility] C[facility] [place] [id number] PHYSICIAN DISTRICT OPERATIONS MANAGER 06/14/21 Jony Pruitt DPM [address] [place] [address], [address] [place] [address] Referring Physician PODIATRY/SURGERY 06/14/21 [place] [address] [place] [address] ORTHOPAEDIC SURGERY 06/14/21 documented as of this encounter
--- OUTSIDE RECORDS SUMMARY | 2024-10-24 12:01 | XMS_ITS | Encounter Summary ---
Author Organization [facility] Address [facility] [facility]. [place], [place] [address] [place] [address] Care Team Providers Care Bicycle Rental Clerk Name Role Phone Ziggy Harding MD Primary Care Provider [phone] Encounter Details Date Type Department Care Team (Late st Contact Info) Description 11/03/2018 Abstract [facility] 201 [facility] [place] [address] Ziggy Harding MD [address] [facility] [place] [id number] Social History Tobacco Use Types Packs/Day Years Used Date Smoking Tobacco: Never Smokeless Tobacco: Never Comments Unknown Sex and Gender Information Value Date Recorded Sex Assigned at Not on file Legal Sex Female 5:51 PM CDT Gender Identity Not on file Sexual Orientation Not on file documented as of this encounter Progress Notes * Yesi Burnett LPN - 11/03/2018 4:10 PM CST Imaging reviewed by Ella Hodge RN DIGITAL COMMUNICATIONS MANAGER-C; Moderate loss of joint space to right hip. Continue with current plan. Call with an update in 3-4 weeks. HOLDER documented in this encounter Plan of Treatment Upcoming Encounters Date Type Department Care Team (Late st Contact Info) Description 11/02/2024 8:00 AM COPY HOLDER Office Visit [address] [place] [address] Ella Hodge [facility] [address] [facility] [place] [address] 01/19/2025 11:00 AM CDT Office Visit [facility] Medical Group Pul[facility]ology [facility]ty [facility] [place] 200 [facility] [address] Stanley Jim MD [address] [place] [address] 06/23/2025 8:20 AM CDT Office Visit [address] [place] [address] Ella Hodge [facility] [address] [facility] [place] [address] documented as of this encounter Visit Diagnoses Not on filedocumented in this encounter Care Teams Bicycle Rental Clerk Relationship Specialty Start Date End Date Ziggy Harding MD [address] [facility] [place] [address] PCP - General FAMILY PRACTICE 09/21/18 11/10/19 documented as of this encounter
--- OUTSIDE RECORDS SUMMARY | 2024-10-24 12:01 | XMS_ITS | Encounter Summary ---
Author Organization [facility] Address [address] [place] [address]. [place], [place] [address] [place] [address] Care Team Providers Care Client Relations Representative Name Role Phone Ziggy Harding MD Primary Care Provider [phone] Encounter Details Date Type Department Care Team (Latest Contact Info) Description 11/04/2018 Scan [employer] INFO SRVCS Scanned, Documents Social History Tobacco Use Types Packs/Day Years Used Date Smoking Tobacco: Never Smokeless Tobacco: Never AUDIT-C Answer Date Recorded Frequency of Alcohol Consumption Never 10/14/2019 Average Number of Drinks Not on file 019 Frequency of Binge Drinking Not on file 09/26 PHQ-2 Answer Date Recorded PHQ-2 Score 0 09/24/2019 Comments Unknown Sex and Gender Information Value Date Recorded Sex Assigned at Not on file Legal Sex Female 5:51 PM CDT Gender Identity Not on file Sexual Orientation Not on file documented as of this encounter Plan of Treatment Upcoming Encounters Date Type Department Care Team (Late st Contact Info) Description 11/02/2024 8:00 AM BI DATA ARCHITECT Office Visit [facility] [address] [place] [id number] Ella Hodge, [facility] [address] [place] [address] 01/19/2025 11:00 AM CDT Office Visit [facility] Medical Group Pul[facility] - [place] 200 [facility] [place] [address] Stanley Jim MD [address] [place] [address] 06/23/2025 8:20 AM CDT Office Visit [facility] [address] [place], [place] [address] Ella Hodge [facility] [address] [place], [place] [phone] documented as of this encounter Visit Diagnoses Not on filedocumented in this encounter Care Teams Client Relations Representative Relationship Specialty Start Date End Date Ziggy Harding MD 201 [facility] [place], [place] [address] PCP - General FAMILY PRACTICE 09/21/18 11/10/19 documented as of this encounter
--- OUTSIDE RECORDS SUMMARY | 2024-10-24 12:01 | XMS_ITS | Encounter Summary ---
Author Organization [facility] Address [facility]6 [facility]. [place], [place] [address] [place] [address] Care Team Providers Care Hearth Feeder Name Role Phone Ziggy Harding MD Primary Care Provider [phone] Encounter Details Date Type Department Care Team (Late st Contact Info) Description 11/02/2018 Orders Only [facility] Medical Group Priority Care - [address] [place] [address] Ella Goodwin [place] [address] [place] [address] Social History Tobacco Use Types Packs/Day [...] st Contact Info) Description 11/02/2024 8:00 AM SALES ASSOCIATE FISHING Office Visit [facility] [address] [place] [address] Ella Goodwin [facility] 201 [facility] [address] [place] [phone] 01/19/2025 11:00 AM CDT Office Visit [facility] Medical Group Pulmonology Specialty Clinic - [address] [place] [address] Stanley Jim MD [address] [place] [address] 06/23/2025 8:20 AM CDT Office Visit [facility] 201 [facility] [place] [address] Ella Goodwin, SHIELD RUNNER [address] [place], [place] [phone] documented as of this encounter Procedures Procedure Name Priority Date/Time Associated Diagnosis Comments XR HIP RT 2V 11/02/2018 11:31 AM SALES ASSOCIATE FISHING documented in this encounter Results * XR HIP RT MIN 2V (11/02/2018 11:31 AM SALES ASSOCIATE FISHING) Anatomical Region Laterality Modality Hip Radiographic Mildred ging 11/02/2018 11:3 1 AM SALES ASSOCIATE FISHING Narrative 11/02/2018 11:31 AM SALES ASSOCIATE FISHING [facility] Ordering Phy: ELLA GOODWIN ?Attending Phys: ?ELLA GOODWIN XR HIP AP W/LAT RT ?Completed: XR HIP AP W/LAT RT 11/02/2018 TWO VIEW RIGHT HIP CLINICAL HISTORY: Pain. Symptoms for 1 year. No given history of trauma. CONCLUSION: 1. Two view right hip 11/02/2018. No comparisons. Correlation made with CT of the abdomen and pelvis of 02/26/2017. 2. There is no evidence of acute fracture, dislocation or osseous erosion. Normal contour to femoral head. 3. Stable moderate loss of joint space with moderate osteophyte. Mild adjacent sclerosis. Mild subchondral cyst formation about the posterior acetabulum as was also seen on prior CT. 4. No adjacent soft tissue abnormalities or radiopaque foreign bodies. 5. Phleboliths in the pelvis. Arwd-gh-[id number] degenerative change of the right sacroiliac joint. Dictation ID: [id number] dd: 11/02/2018 09:21:56 PCS dt: 11/02/2018 09:25:41 nts Electronically Reviewed and Signed by: Tomer CARRILLO M.D. BOARD CERTIFIED [facility] 11/04/18 10:25 ?? Procedure Note , Generic Conversion, MD - 11/04/2018 [facility] Ordering Phy: ELLA GOODWIN Attending Phys:ELLA GOODWIN XR HIP AP W/LAT RT Completed: XR HIP AP W/LAT RT 11/02/2018 TWO VIEW RIGHT HIP CLINICAL HISTORY: Pain. Symptoms for 1 year. No given history of trauma. CONCLUSION: 1. Two view right hip 11/02/2018. No comparisons. Correlation made withCT of the abdomen and pelvis of 02/26/2017. 2. There is no evidence of acute fracture, dislocation or osseouserosion. Normal contour to femoral head. 3. Stable moderate loss of joint space with moderate osteophyte. Mildadjacent sclerosis. Mild subchondral cyst formation about the posterior acetabulum as was alsoseen on prior CT. 4. No adjacent soft tissue abnormalities or radiopaque foreign bodies. 5. Phleboliths in the pelvis. Kbpe-fg-[id number] degenerative change of theright sacroiliac joint. Dictation ID: [id number] dd: 11/02/2018 09:21:56 PCS dt: 11/02/2018 09:25:41 nts Electronically Reviewed and Signed by: Tomer CARRILLO M.D. BOARD CERTIFIED [facility] 11/04/18 10:25 Ella Goodwin SHIELD RUNNER [facility] Final Res ult documented in this encounter Visit Diagnoses Not on filedocumented in this encounter Care Teams Hearth Feeder Relationship Specialty Start Date End Date Ziggy Harding MD [address] [place] [address] [place] [address] PCP - General FAMILY PRACTICE 09/21/18 11/10/19 documented as of this encounter
--- OUTSIDE RECORDS SUMMARY | 2024-10-24 12:01 | XMS_ITS | Encounter Summary ---
Author Organization [facility] Address [address] [place] [address]. [place], [place] [address] [place] [address] Care Team Providers Care Ross Lift Operator Name Role Phone Unavailable Primary Care Provider Unavailabl e Encounter Details Date Type Department Care Team (Late st Contact Info) Description 07/28/2018 Abstract [facility] Conversion Ella Hodge, [address] [place] [address] Social History Tobacco Use Types Packs/Day Years Used Date Smoking Tobacco: Never Assessed Comments Unknown Sex and Gender Information Value Date Recorded Sex Assigned at Not on file Legal Sex Female 5:51 PM CDT Gender Identity Not on file Sexual Orientation Not on file documented as of this encounter Last Filed Vital Signs Vital Sign Reading Time Taken Comments Blood Pressure 140/70 07/28/2018 8:40 AM CDT Pulse 80 07/28/2018 8:40 AM CDT Temperature - - Respiratory Rate - - Oxygen Saturation - - Inhaled Oxygen Concentration - - Weight 65.8 kg (145 lb) 07/28/2018 8:40 AM CDT Height 152.4 cm (5') 07/28/2018 8:40 AM CDT Body Mass Index 28.32 07/28/2018 8:40 AM CDT documented in this encounter Plan of Treatment Upcoming Encounters Date Type Department Care Team (Late st Contact Info) Description 11/02/2024 8:00 AM ACTIVITIES ATTENDANT Office Visit [address] [place] [address] Ella Hodge [facility] [address] [facility] [place] [address] 01/19/2025 11:00 AM CDT Office Visit [facility] Medical [facility] - [address] [place] [address] Stanley Jim MD [address] [place] [address] 06/23/2025 8:20 AM CDT Office Visit [address] [place] [address] Ella Hodge [facility] [address] [facility] [place] [address] documented as of this encounter Visit Diagnoses Not on filedocumented in this encounter
--- OUTSIDE RECORDS SUMMARY | 2024-10-24 12:01 | XMS_ITS | Encounter Summary ---
Author Organization [facility] Address [facility]. [place], [place] [address] [place] [address] Care Team Providers Care Computer Technical Specialist Name Role Phone Ziggy Harding MD Primary Care Provider Demetrio Shore MD Primary Care Pr ovider Unavailable Joon Lewis Unavailable [phone] Cesar Callie CAMPBELL Unavailable [phone] George Osorio MD Unavailable Sergey Ramey Unavailable [phone] Jony Pruitt DPM Unavailable Gama Graves MD Unavailable [phone] Encounter Details Date Type Department Care Team (Late st Contact Info) Description 11/19/2018 Abstract [facility] [address] [place] [address] Ella Hodge, BRUSHER TENDER [address] [place] [address] Social History Tobacco Use Types Packs/Day Years [...] st Contact Info) Description 11/02/2024 8:00 AM WASTE WATER WORKER Office Visit [address] [place] [address] Ella Hodge [facility] [address] [facility] [place] [address] 01/19/2025 11:00 AM CDT Office Visit [facility] Medical Group [facility]ty [facility] - [address] [place] [address] Stanley Jim MD [address] [place] [address] 06/23/2025 8:20 AM CDT Office Visit [address] [place] [address] Ella Hodge [facility] [address] [facility] [place] [address] documented as of this encounter Visit Diagnoses Not on filedocumented in this encounter Care Teams Computer Technical Specialist Relationship Specialty Start Date End Date Ziggy Harding MD [address] [facility] [place] [address] PCP - General FAMILY PRACTICE 09/21/18 11/10/19 Demetrio Shore MD [address] [place] [address] PCP - General FAMILY PRACTICE 11/11/19 03/29/23 Joon Lewis PA [address] [place] [address] PHYSICIAN TRAVEL TICKETING REVIEWER 05/09/21 Callie Guerrero DO [address] [place] [address] Business Process Consultant OBGYN 06/14/21 [place] [address] [address] GASTROENTEROLOGY 06/14/21 Sergey Ramey PA [address] [facility] [address] [place] [id number] PHYSICIAN TRAVEL TICKETING REVIEWER 06/14/21 Jony Pruitt DPM [address] [place] [address], [address] [place] [address] Referring Physician PODIATRY/SURGERY 06/14/21 [place] [address] [place] [address] ORTHOPAEDIC SURGERY 06/14/21 documented as of this encounter
--- OUTSIDE RECORDS SUMMARY | 2024-10-24 12:01 | XMS_ITS | Encounter Summary ---
Author Organization [facility] Address [address] [place] [address]. [place], [place] [address] [place] [address] Care Team Providers Care Head Of Maintenance Name Role Phone Ziggy Harding MD Primary Care Provider [phone] Reason for Visit * Reason Comments Outside Record (SCAN) VISIT [facility] Encounter Details Date Type Department Care Team (Late st Contact Info) Description 09/16/2018 Scan HEALTH INFO [facility] Scanned, Documents Outside Record (SCAN) (VISIT [facility]) Social History Tobacco Use Types Packs/Day Years [...] st Contact Info) Description 11/02/2024 8:00 AM PARTY PLAN DEMONSTRATOR Office Visit [facility] [address] [place] [address] Ella Hodge FNP [address] [place] [address] 01/19/2025 11:00 AM CDT Office Visit [facility] Medical [facility] - [place] [address] [place] [address] Stanley Jim MD [address] [address] 06/23/2025 8:20 AM CDT Office Visit [facility] 201 [facility] [place] [address] Ella Hodge [facility] [address] [place], [place] [phone] documented as of this encounter Visit Diagnoses Not on filedocumented in this encounter Care Teams Head Of Maintenance Relationship Specialty Start Date End Date Ziggy Harding MD [address] [place] [address] [place], [place] [id number] PCP - General FAMILY PRACTICE 09/21/18 11/10/19 documented as of this encounter
--- OUTSIDE RECORDS SUMMARY | 2024-10-24 12:01 | XMS_ITS | Encounter Summary ---
Author Organization [facility] Address [facility]. [place], [place] [address] [place] [address] Care Team Providers Care Dry Cleaning Machine Operator Helper Name Role Phone Ziggy Harding MD Primary Care Provider Demetrio Shore MD Primary Care Pr ovider Unavailable Joon Lewis Unavailable [phone] Cesar Callie CAMPBELL Unavailable George Osorio MD Unavailable Sergey Ramey Unavailable Jony Pruitt DPM Unavailable [phone] Gama Graves MD Unavailable [phone] Encounter Details Date Type Department Care Team (Late st Contact Info) Description 11/02/2018 Abstract [facility] [address] [place] [address] Ella Hodge, CARBURETOR EXPERT [address] [place] [address] Social History Tobacco Use Types Packs/Day Years [...] st Contact Info) Description 11/02/2024 8:00 AM UTILITY WORKER Office Visit [address] [place] [address] Ella Hodge [facility] [address] [facility] [place] [address] 01/19/2025 11:00 AM CDT Office Visit [facility] Medical Group Pulmonology Specialty Clinic - [address] [place] [address] Stanley Jim MD [address] [place] [address] 06/23/2025 8:20 AM CDT Office Visit [address] [place] [address] Ella Hodge [facility] [address] [facility] [place] [address] documented as of this encounter Visit Diagnoses Not on filedocumented in this encounter Care Teams Dry Cleaning Machine Operator Helper Relationship Specialty Start Date End Date Ziggy Harding MD [address] [facility] [place] [address] PCP - General FAMILY PRACTICE 09/21/18 11/10/19 Demetrio Shore MD [address] [place] [address] PCP - General FAMILY PRACTICE 11/11/19 03/29/23 Joon Lewis PA [address] [place] [address] PHYSICIAN STAFF DEVELOPMENT NURSE 05/09/21 Callie Guerrero DO [address] [place] [address] Battery Container Inspector OBGYN 06/14/21 [place] [address] [address] GASTROENTEROLOGY 06/14/21 Sergey Ramey PA 200 [facility] CARE [place] [phone] PHYSICIAN STAFF DEVELOPMENT NURSE 06/14/21 Jony Pruitt DPM [address] [place] [address], [facility] [address] [place] [address] Referring Physician PODIATRY/SURGERY 06/14/21 [place] [address] [place] [address] ORTHOPAEDIC SURGERY 06/14/21 documented as of this encounter
--- OUTSIDE RECORDS SUMMARY | 2024-10-24 12:03 | XMS_ITS | Encounter Summary ---
Author Organization [facility] Address [address] [place] [address]. [place], [place] [address] [place] [address] Care Team Providers Care Dance Therapist Name Role Phone Unavailable Primary Care Provider Unavailabl e Encounter Details Date Type Department Care Team (Late Contact Info) Description 06/18/2016 Abstract [facility] Conversion Meagan Grullon, [facility] [address] [place] [address] Social History Tobacco Use Types Packs/Day Years Used Date Smoking Tobacco: Never Assessed Comments Unknown Sex and Gender Information Value Date Recorded Sex Assigned at Not on file Legal Sex Female 5:51 PM CDT Gender Identity Not on file Sexual Orientation Not on file documented as of this encounter Last Filed Vital Signs Vital Sign Reading Time Taken Comments Blood Pressure 124/82 06/18/2016 1:05 PM CDT Pulse 92 06/18/2016 1:05 PM CDT Temperature - - Respiratory Rate - - Oxygen Saturation - - Inhaled Oxygen Concentration - - Weight 64.6 kg (142 lb 8 oz) 06/18/2016 1:05 PM CDT Height - - Body Mass Index 27.83 10/18/2015 1:21 PM CERTIFIED MEETING PROFESSIONAL documented in this encounter Plan of Treatment Upcoming Encounters Date Type Department Care Team (Late st Contact Info) Description 11/02/2024 8:00 AM CERTIFIED MEETING PROFESSIONAL Office Visit [facility] [address] [place] [address] Ella Hodge [facility] 201 [facility] [place] [address] 01/19/2025 11:00 AM CDT Office Visit [facility] Pul[facility] Specialty Clinic - [address] [address] Stanley Jim MD [address] [place] [address] 06/23/2025 8:20 AM CDT Office Visit [facility] [address] [facility] [address] [place], [place] [phone] [facility] 201 [facility] [place] [address] documented as of this encounter Procedures Procedure Name Priority Date/Time Associated Diagnosis Comments COMPREHENSIVE METABOLIC PANEL Routine 06/24/2016 8:21 AM CDT CBC W/DIFF AUTOMATED Routine 06/24/2016 8:21 AM CDT documented in this encounter Results * CBC W/DIFF AUTOMATED (06/24/2016 8:21 AM CDT) WBC 4.6 4.5 - 11.0 cmm [facility] TO [facility] CONVERSION RBC 4.0 4.0 - 5.2 M/cumm [facility] TO [facility] CONVERSION HGB 12.5 12.0 - 16.0 g/dL [facility] TO [facility] CONVERSION HCT 37.1 36.0 - 46.0 % [facility] TO [facility] CONVERSION MCV 93.2 80.0 - 100 fL [facility] TO [facility]IC CONVERSION MCH 31.4 26.0 - 34.0 pg [facility] TO EPIC CONVERSION MCHC 33.7 31.0 - 37.0 g/dL [facility] TO EPIC CONVERSION RDW 13.0 11.6 - 14.8 % [facility] TO [facility] CONVERSION PLT 252 140 - 415 cmm [facility] TO [facility]IC CONVERSION MPV 9 7 - 12 fl [facility] T O EPIC CONVERSION ABS. NEUTROPHILS 2.12 0.44 - 17.02 x10^3 [facility] TO [facility]IC CONVERSION ABS. LYMPHOCYTES 1.67 0.21 - 5.42 x10^3 [facility] TO EPIC CONVERSION ABS. MONOCYTES 0.52 0.04 - 1.37 x10^3 [facility] TO EPIC CONVERSION ABS. EOSINOPHILS 0.20 0.00 - 0.68 x10^3 [facility] TO EPIC CONVERSION ABS. BASOPHILS 0.03 0.00 - 0.08 x10^3 [facility] TO EPIC CONVERSION ABS. IMMATURE GRANULOCYTES 0.01 0.00 - 0.06 x10^3 [facility] TO [facility]IC CONVERSION NEUTROPHILS % 46.6 40.0 - 74.0 % [facility] TO [facility] CONVERSION LYMPHOCYTES % 36.7 14.0 - 46.0 % [facility] TO [facility] CONVERSION MONOCYTES % 11.4 4.0 - 13.0 % [facility] TO EPIC CONVERSION EOSINOPHILS % 4.4 0.0 - 7.0 % [facility] TO EPIC CONVERSION BASOPHILS % 0.7 0.0 - 3.0 % [facility] TO EPIC CONVERSION IMMATURE GRANS % 0.20 0.00 - 0.43 % [facility] TO [facility] CONVERSION MANUAL DIFFERENTIAL NOT INDICATED [facility] TO [facility] CONVERSION WBC MORPHOLOGY NOT INDICATED M [facility] TO EPIC CONVERSION RBC MORPHOLOGY NOT INDICATED M [facility] TO EPIC CONVERSION PLT MORPH. NOT INDICATED [facility] OUP TO EPIC CONVERSION 06/24/2016 8:21 AM CDT 06/24/2016 8:21 AM CDT Narrative [facility] TO [facility]IC CONVERSION - 06/24/2016 8:41 AM CDT This lab was migrated from [facility] and may be missing annotations or result text, please check the Media tab for the most complete results. Meagan Grullon PAYROLL ACCOUNTING CLERK LABORATORY Final Result [facility] TO [facility] CONVERSION * COMPREHENSIVE METABOLIC PANEL (06/24/2016 8:21 AM CDT) [facility] GLUCOSE 96 65 - 99 mg/dL [facility] TO EPIC CONVERSION SODIUM S/P/B 143 135 - 148 mmol/L [facility] TO [facility]IC CONVERSION POTASSIUM S/P/B 4.5 3.5 - 5.3 mmol/L [facility] TO EPIC CONVERSION CHLORIDE S/P/B 105 95 - 110 mmol/L [facility] TO [facility]IC CONVERSION TCO2 27 22 - 32 mmol/L [facility] TO EPIC CONVERSION BUN 13 6 - 20 mg/dL [facility] TO EPIC CONVERSION CREATININE S/P/B 0.6 0.5 - 1.2 mg/dL [facility] TO EPIC CONVERSION TOTAL PROTEIN S/P/B 6.9 5.8 - 8.3 g/dL [facility] TO EPIC CONVERSION CALCIUM S/P/B 9.7 8.6 - 10.2 mg/dL [facility] TO EPIC CONVERSION BILIRUBIN TOTAL S/P/B 0.5 0.1 - 1.2 mg/dL [facility] TO EPIC CONVERSION ALKALINE PHOSPHATASE S/P/B 47 35 - 104 U/L [facility] TO EPIC CONVERSION ALBUMIN S/P/B 4.3 3.5 - 5.2 g/dL [facility] TO EPIC CONVERSION AST 18 0 - 32 U/L [facility] TO EPIC CONVERSION ALT 14 0 - 33 U/L [facility] TO EPIC CONVERSION PATIENT'S AGE 70 YEARS [facility] UP TO EPIC CONVERSION EGFR NON-AFR. AMER. 104 ml/min [facility] TO EPIC CONVERSION ANION GAP 11 9 - 21 [facility] T O EPIC CONVERSION 06/24/2016 8:21 AM CDT 06/24/2016 8:21 AM CDT Narrative [facility] TO EPIC CONVERSION - 06/24/2016 9:02 AM CDT This lab was migrated from [facility] and may be missing annotations or result text, please check the Media tab for the most complete results. Meagan Grullon PAYROLL ACCOUNTING CLERK LABORATORY Final Result [facility] TO EPIC CONVERSION documented in this encounter Visit Diagnoses Not on filedocumented in this encounter
--- OUTSIDE RECORDS SUMMARY | 2024-10-24 12:03 | XMS_ITS | Encounter Summary ---
Author Organization [facility] Address [address] [place] [address]. [place], [place] [address] [place] [address] Care Team Providers Care Air Chipper Name Role Phone Unavailable Primary Care Provider Unavailabl e Encounter Details Date Type Department Care Team (Late Contact Info) Description 12/23/2016 Abstract [facility] Clinics Conversion Md, Generic Conversion, Social [...] st Contact Info) Description 11/02/2024 8:00 AM PROFESSOR OF VISUAL ARTS Office Visit [facility] [address] [place] [address] Ella Hodge FNP [address] [place] [address] 01/19/2025 11:00 AM CDT Office Visit [facility] Medical Group [facility] - [place] [address] [place] [address] Stanley Jim MD [address] [place] [address] 06/23/2025 8:20 AM CDT Office Visit [address] [place] [id number] Ella Hodge, [address] [place] [address] documented as of this encounter Visit Diagnoses Not on filedocumented in this encounter
--- OUTSIDE RECORDS SUMMARY | 2024-10-24 12:03 | XMS_ITS | Encounter Summary ---
Author Organization [facility] Address [facility]. [place], [place] [address] [place] [address] Care Team Providers Care Theater Usher Name Role Phone Ziggy Harding MD Primary Care Provider [phone] Demetrio Shore MD Primary Care Pr ovider Unavailable Joon Lewis Unavailable [phone] Cesar Callie DO Unavailable George Osorio MD Unavailable Sergey Ramey Unavailable [phone] Jony Pruitt DPM Unavailable Gama Graves MD Unavailable [phone] Encounter Details Date Type Department Care Team (Late st Contact Info) Description 06/24/2016 Abstract [facility] [address] [place] [address] Meagan Grullon, DIRECTOR OF MAINTENANCE [address] [place] [address] Social History Tobacco Use Types Packs/Day Years [...] st Contact Info) Description 11/02/2024 8:00 AM OCC THERAPIST Office Visit [address] [place] [address] Ella Hodge FNP [address] [facility] [place] [address] 01/19/2025 11:00 AM CDT Office Visit [facility] Medical Group Pulmonology Specialty Clinic [facility] 200 [facility] [place] [address] Stanley Jim MD [address] [place] [address] 06/23/2025 8:20 AM CDT Office Visit [address] [place] [address] Ella Hodge FNP [address] [facility] [place] [address] documented as of this encounter Visit Diagnoses Not on filedocumented in this encounter Care Teams Theater Usher Relationship Specialty Start Date End Date Ziggy Harding MD [address] [facility] [place] [address] PCP - General FAMILY PRACTICE 09/21/18 11/10/19 Demetrio Shore MD [address] [place] [address] PCP - General FAMILY PRACTICE 11/11/19 03/29/23 Joon Lewis PA [address] [place] [address] PHYSICIAN MODELING INSTRUCTOR 05/09/21 Callie Guerrero DO [address] [place] [address] Automotive Upholsterer OBGYN 06/14/21 [place] [address] [id number] GASTROENTEROLOGY 06/14/21 Sergey Ramey PA 200 [facility] [place] [address] PHYSICIAN MODELING INSTRUCTOR 06/14/21 Jony Pruitt DPM [address] [place] [address], [address] [place] [address] Referring Physician PODIATRY/SURGERY 06/14/21 [place] [address] [place] [address] ORTHOPAEDIC SURGERY 06/14/21 documented as of this encounter
--- OUTSIDE RECORDS SUMMARY | 2024-10-24 12:03 | XMS_ITS | Encounter Summary ---
Author Organization [facility] Address [address] [place] [address]. [place], [place] [address] [place] [address] Care Team Providers Care Turf Grower Name Role Phone Unavailable Primary Care Provider Unavailabl e Encounter Details Date Type Department Care Team (Late Contact Info) Description 05/21/2016 Abstract [facility] Clinics Conversion Md, Generic Conversion, [...] st Contact Info) Description 11/02/2024 8:00 AM FERRYBOAT DECKHAND Office Visit [facility] [address] [place] [address] Ella Hodge FNP [address] [place] [address] 01/19/2025 11:00 AM CDT Office Visit [facility] Medical Group [facility] [place] [address] [place] [address] Stanley Jim MD [address] [place] [address] 06/23/2025 8:20 AM CDT Office Visit [address] [place] [id number] Ella Hodge, [address] [place] [address] documented as of this encounter Visit Diagnoses Not on filedocumented in this encounter
--- OUTSIDE RECORDS SUMMARY | 2024-10-24 12:03 | XMS_ITS | Encounter Summary ---
Author Organization [facility] Address [address] [place] [address]. [place], [place] [address] [place] [address] Care Team Providers Care Computer Support Analyst Name Role Phone Unavailable Primary Care Provider Unavailabl e Encounter Details Date Type Department Care Team (Late Contact Info) Description 07/08/2016 Abstract [facility] Conversion Ella Hodge, [facility] [address] [place] [address] Social History Tobacco Use Types Packs/Day Years Used Date Smoking Tobacco: Never Assessed Comments Unknown Sex and Gender Information Value Date Recorded Sex Assigned at Not on file Legal Sex Female 5:51 PM CDT Gender Identity Not on file Sexual Orientation Not on file documented as of this encounter Last Filed Vital Signs Vital Sign Reading Time Taken Comments Blood Pressure 130/70 07/08/2016 4:07 PM CDT Pulse 80 07/08/2016 4:07 PM CDT Temperature - - Respiratory Rate - - Oxygen Saturation - - Inhaled Oxygen Concentration - - Weight 64.4 kg (142 lb) 07/08/2016 4:07 PM CDT Height - - Body Mass Index 27.73 10/18/2015 1:21 PM RIBBON WINDER documented in this encounter Plan of Treatment Upcoming Encounters Date Type Department Care Team (Late st Contact Info) Description 11/02/2024 8:00 AM RIBBON WINDER Office Visit [facility] [address] [place] [address] Ella Hodge [address] [place] [address] 01/19/2025 11:00 AM CDT Office Visit [facility] Medical Group Pulmonology Specialty Clinic - [address] [place] [address] Stanley Jim MD [address] [place] [address] 06/23/2025 8:20 AM CDT Office Visit [facility] [address] [facility] [address] Ella Hodge [address] [place] [address] documented as of this encounter Visit Diagnoses Not on filedocumented in this encounter
--- OUTSIDE RECORDS SUMMARY | 2024-10-24 12:03 | XMS_ITS | Encounter Summary ---
Author Organization [facility] Address [facility]. [place], [place] [address] [place] [address] Care Team Providers Care Manager Farm Name Role Phone Ziggy Harding MD Primary Care Provider Demetrio Shore MD Primary Care Pr ovider Unavailable Joon Lewis Unavailable [phone] Cesar Callie DO Unavailable George Osorio MD Unavailable Sergey Ramey Unavailable [phone] Jony Pruitt DPM Unavailable Gama Graves MD Unavailable [phone] Encounter Details Date Type Department Care Team (Late st Contact Info) Description 06/05/2016 Abstract [facility] Mammography [address] [place] [id number] Renteta Fitzpatrick MD [facility] [place], [place] [id number] Social History Tobacco Use Types Packs/Day Years [...] st Contact Info) Description 11/02/2024 8:00 AM MUSEUM GUIDE Office Visit [address] [place] [address] Ella Hodge [facility] [address] [facility] [place] [address] 01/19/2025 11:00 AM CDT Office Visit [facility] Medical Group Pulmonology Specialty Clinic - [address] [place] [address] Stanley Jim MD [address] [place] [address] 06/23/2025 8:20 AM CDT Office Visit [address] [place] [address] Ella Hodge [facility] [address] [facility] [place] [address] documented as of this encounter Visit Diagnoses Not on filedocumented in this encounter Care Teams Manager Farm Relationship Specialty Start Date End Date Ziggy Harding MD [address] [facility] [place] [address] PCP - General FAMILY PRACTICE 09/21/18 11/10/19 Demetrio Shore MD [address] [facility] [place] [address] PCP - General FAMILY PRACTICE 11/11/19 03/29/23 Joon Lewis PA [address] [place] [address] PHYSICIAN TRANSPORTATION ECONOMICS TEACHER 05/09/21 Callie Guerrero DO [address] [place] [address] Motor Rebuilder OBGYN 06/14/21 [place] [address] [address] GASTROENTEROLOGY 06/14/21 Sergey Ramey PA 200 [facility] [place] [phone] PHYSICIAN TRANSPORTATION ECONOMICS TEACHER 06/14/21 Jony Pruitt DPM [address] [place] [address], [facility] 80 [place] [address] Referring Physician PODIATRY/SURGERY 06/14/21 [place] [address] [place] [address] ORTHOPAEDIC SURGERY 06/14/21 documented as of this encounter
--- OUTSIDE RECORDS SUMMARY | 2024-10-24 12:03 | XMS_ITS | Encounter Summary ---
Author Organization [facility] Address [facility]. [place], [place] [address] [place] [address] Care Team Providers Care Hide Inspector Name Role Phone Ziggy Harding MD Primary Care Provider [phone] Demetrio Shore MD Primary Care Pr ovider Unavailable Joon Lewis Unavailable [phone] Callie Guerrero DO Unavailable [phone] George Osorio MD Unavailable Sergey Ramey Unavailable [phone] Jony Pruitt DPM Unavailable [phone] Gama Graves MD Unavailable [phone] Encounter Details Date Type Department Care Team (Late st Contact Info) Description 05/22/2016 Abstract [facility] Diagnostic Imaging [address] [place] [address] [place] [address] [place] [address] Social History Tobacco Use Types Packs/Day Years [...] Contact Info) Description 11/02/2024 8:00 AM CANDLE CUTTER Office Visit [address] [place] [address] Ella Hodge [facility] 201 [place] [address] 01/19/2025 11:00 AM CDT Office Visit [facility] Medical Group [facility] [address] [place] [address] Stanley Jim MD [address] [place] [address] 06/23/2025 8:20 AM CDT Office Visit [address] [place] [address] Ella Hodge [facility] [address] [place] [place] [address] documented as of this encounter Visit Diagnoses Not on filedocumented in this encounter Care Teams Hide Inspector Relationship Specialty Start Date End Date Ziggy Harding MD [address] [place] [place] [address] PCP - General FAMILY PRACTICE 09/21/18 11/10/19 Demetrio Shore MD [address] [place] [address] PCP - General FAMILY PRACTICE 11/11/19 03/29/23 Joon Lewis PA [address] [place] [address] PHYSICIAN RENAL DIALYSIS RN 05/09/21 Callie Guerrero DO [address] [place] [address] Roll Carrier OBGYN 06/14/21 [place] [address] [phone] GASTROENTEROLOGY 06/14/21 Sergey Ramey PA [address] [place] [address] [place] [address] PHYSICIAN RENAL DIALYSIS RN 06/14/21 Jony Pruitt DPM [address] [place] [address], [address] [place] [address] Referring Physician PODIATRY/SURGERY 06/14/21 [place] [address] [place] [address] ORTHOPAEDIC SURGERY 06/14/21 documented as of this encounter
--- OUTSIDE RECORDS SUMMARY | 2024-10-24 12:03 | XMS_ITS | Encounter Summary ---
Author Organization [facility] Address [address] [place] [address]. [place], [place] [address] [place] [address] Care Team Providers Care Apricot Washer Name Role Phone Unavailable Primary Care Provider Unavailabl e Encounter Details Date Type Department Care Team (Late Contact Info) Description 05/22/2016 Abstract [facility] Clinics Conversion Md, Generic Conversion, Social [...] Contact Info) Description 11/02/2024 8:00 AM CUSTOMER SOLUTIONS SPECIALIST Office Visit [facility] [address] [address] Ella Hodge FNP [address] [place] [address] 01/19/2025 11:00 AM CDT Office Visit [facility] Medical Group [facility] - [place] [address] [place] [address] Stanley Jim MD [address] [place] [address] 06/23/2025 8:20 AM CDT Office Visit [address] [place] [phone] Ella Hodge, [address] [place] [address] documented as of this encounter Visit Diagnoses Not on filedocumented in this encounter
--- OUTSIDE RECORDS SUMMARY | 2024-10-24 12:03 | XMS_ITS | Encounter Summary ---
Author Organization [facility] Address [facility]. [place], [place] [address] [place] [address] Care Team Providers Care Recruitment Officer Name Role Phone Ziggy Harding MD Primary Care Provider Demetrio Shore MD Primary Care Pr ovider Unavailable Joon Lewis Unavailable [phone] Cesar Callie DO Unavailable [phone] George Osorio MD Unavailable Segrey Ramey Unavailable Jony Pruitt DPM Unavailable [phone] Gama Graves MD Unavailable [phone] Encounter Details Date Type Department Care Team (Late st Contact Info) Description 06/13/2016 Abstract [facility] Mammography [address] [place] [address] Renetta Fitzpatrick MD 7 [facility]. [address] [place], [place] [id number] Social History Tobacco Use Types Packs/Day Years [...] st Contact Info) Description 11/02/2024 8:00 AM HSE MANAGER Office Visit [address] [place] [address] Ella Hodge [facility] [address] [facility] [place] [address] 01/19/2025 11:00 AM CDT Office Visit [facility] Medical Group Pulmonology Specialty Clinic - [address] [place] [address] Stanley Jim MD [address] [place] [address] 06/23/2025 8:20 AM CDT Office Visit [address] [place] [address] Ella Hodge [facility] [address] [facility] [place] [address] documented as of this encounter Visit Diagnoses Not on filedocumented in this encounter Care Teams Recruitment Officer Relationship Specialty Start Date End Date Ziggy Harding MD [address] [facility] [place] [address] PCP - General FAMILY PRACTICE 09/21/18 11/10/19 Demetrio Shore MD [address] [place] [address] PCP - General FAMILY PRACTICE 11/11/19 03/29/23 Joon Lewis PA [address] [place] [address] PHYSICIAN TRAFFIC OPERATOR 05/09/21 Callie Guerrero DO [address] [place] [address] Desk Attendant OBGYN 06/14/21 [place] [address] [address] GASTROENTEROLOGY 06/14/21 Sergey Ramey PA 200 [facility] [place] [phone] PHYSICIAN TRAFFIC OPERATOR 06/14/21 Jony Pruitt DPM [address] [place] [address], [facility] 80 [place] [address] Referring Physician PODIATRY/SURGERY 06/14/21 [place] [address] [place] [address] ORTHOPAEDIC SURGERY 06/14/21 documented as of this encounter
--- OUTSIDE RECORDS SUMMARY | 2024-10-24 12:03 | XMS_ITS | Encounter Summary ---
Author Organization [facility] Address [address] [place] [address]. [place], [place] [address] [place] [address] Care Team Providers Care Farm Contractor Buyer Name Role Phone Unavailable Primary Care Provider Unavailabl e Encounter Details Date Type Department Care Team (Late Contact Info) Description 01/03/2017 Abstract [facility] Clinics Conversion Md, Generic Conversion, Social [...] st Contact Info) Description 11/02/2024 8:00 AM DANCE CHOREOGRAPHER Office Visit [facility] [address] [place] [address] Ella Hodge FNP [address] [place] [address] 01/19/2025 11:00 AM CDT Office Visit [facility] Medical Group Pulmonology Specialty Clinic - [place] [address] [place] [address] Stanley Jim MD [address] [place] [address] 06/23/2025 8:20 AM CDT Office Visit [address] [place] [phone] Ella Hodge, [address] [place] [address] documented as of this encounter Visit Diagnoses Not on filedocumented in this encounter
--- OUTSIDE RECORDS SUMMARY | 2024-10-24 12:03 | XMS_ITS | Encounter Summary ---
Author Organization [facility] Address [address] [place] [address]. [place], [place] [address] [place] [address] Care Team Providers Care Welder Fabricator Name Role Phone Unavailable Primary Care Provider Unavailabl e Encounter Details Date Type Department Care Team (Late Contact Info) Description 06/24/2016 Abstract [facility] Clinics Conversion Md, Generic Conversion, [...] st Contact Info) Description 11/02/2024 8:00 AM CRA OFFICER Office Visit [facility] [address] [place] [address] Ella Hodge FNP [address] [place] [address] 01/19/2025 11:00 AM CDT Office Visit [facility] Medical Group Pulmonology Specialty Clinic - [place] [address] [place] [address] Stanley Jim MD [address] [place] [address] 06/23/2025 8:20 AM CDT Office Visit [address] [place] [phone] Ella Hodge, [address] [place] [address] documented as of this encounter Visit Diagnoses Not on filedocumented in this encounter
--- OUTSIDE RECORDS SUMMARY | 2024-10-24 12:03 | XMS_ITS | Encounter Summary ---
Author Organization [facility] Address [address] [place] [address]. [place], [place] [address] [place] [address] Care Team Providers Care Ethics Instructor Name Role Phone Unavailable Primary Care Provider Unavailabl e Encounter Details Date Type Department Care Team (Late Contact Info) Description 02/25/2017 Abstract [facility] Conversion Meagan Grull[place], [facility] [address] [place] [address] Social History Tobacco Use Types Packs/Day Years Used Date Smoking Tobacco: Never Assessed Comments Unknown Sex and Gender Information Value Date Recorded Sex Assigned at Not on file Legal Sex Female 5:51 PM CDT Gender Identity Not on file Sexual Orientation Not on file documented as of this encounter Last Filed Vital Signs Vital Sign Reading Time Taken Comments Blood Pressure 142/84 02/25/2017 1:43 PM CDT Pulse 72 02/25/2017 1:43 PM CDT Temperature - - Respiratory Rate - - Oxygen Saturation - - Inhaled Oxygen Concentration - - Weight 66.8 kg (147 lb 6 oz) 02/25/2017 1:43 PM CDT Height - - Body Mass Index 28.78 01/29/2017 9:01 AM CDT documented in this encounter Plan of Treatment Upcoming Encounters Date Type Department Care Team (Late st Contact Info) Description 11/02/2024 8:00 AM POSTMASTER RELIEF Office Visit [facility] [address] [place] [address] Ella Hodge [address] [place] [address] 01/19/2025 11:00 AM CDT Office Visit [facility] Medical Group Pulmonology Specialty Clinic - [address] [place] [address] Stanley Jim MD [address] [place] [address] 06/23/2025 8:20 AM CDT Office Visit [facility] 201 [facility] [place] [address] Ella Hodge [address] [place] [address] documented as of this encounter Visit Diagnoses Not on filedocumented in this encounter
--- OUTSIDE RECORDS SUMMARY | 2024-10-24 12:03 | XMS_ITS | Encounter Summary ---
Author Organization [facility] Address [address] [place] [address]. [place], [place] [address] [place] [address] Care Team Providers Care Ethernet Network Architect Name Role Phone Unavailable Primary Care Provider Unavailabl e Encounter Details Date Type Department Care Team (Late st Contact Info) Description 01/29/2017 Abstract [facility] Clinics Conversion Meagan Grullon, [address] [place] [address] Social History Tobacco Use Types Packs/Day Years Used Date Smoking Tobacco: Never Assessed Comments Unknown Sex and Gender Information Value Date Recorded Sex Assigned at Not on file Legal Sex Female 5:51 PM CDT Gender Identity Not on file Sexual Orientation Not on file documented as of this encounter Last Filed Vital Signs Vital Sign Reading Time Taken Comments Blood Pressure 130/74 01/29/2017 9:01 AM CDT Pulse 84 01/29/2017 9:01 AM CDT Temperature - - Respiratory Rate - - Oxygen Saturation - - Inhaled Oxygen Concentration - - Weight 68.6 kg (151 lb 5 oz) 01/29/2017 9:01 AM CDT Height 152.4 cm (5') 01/29/2017 9:01 AM CDT Body Mass Index 29.55 01/29/2017 9:01 AM CDT documented in this encounter Plan of Treatment Upcoming Encounters Date Type Department Care Team (Late st Contact Info) Description 11/02/2024 8:00 AM FINANCIAL CONTROLLER Office Visit [place] [address] [place] [address] Ella Hodge [facility] [address] [facility] [address] [place], [place] [address] 01/19/2025 11:00 AM CDT Office Visit [facility] Medical Group Pulmonology Specialty Clinic - [address] [place] [address] Stanley Jim MD [address] [place] [address] 06/23/2025 8:20 AM CDT Office Visit [address] [place] [address] Ella Hodge [facility] [address] [facility] [place] [address] documented as of this encounter Visit Diagnoses Not on filedocumented in this encounter
--- OUTSIDE RECORDS SUMMARY | 2024-10-24 12:03 | XMS_ITS | Encounter Summary ---
Author Organization [facility] Address [facility]. [place], [place] [address] [place] [address] Care Team Providers Care Granite Installer Name Role Phone Ziggy Harding MD Primary Care Provider Demetrio Shore MD Primary Care Pr ovider Unavailable Joon Lewis Unavailable [phone] BradfordJeri whartondre Unavailable George Osorio MD Unavailable Sergey Ramey Unavailable Jony Pruitt DPM Unavailable Gama Graves MD Unavailable [phone] Encounter Details Date Type Department Care Team (Late st Contact Info) Description 01/03/2017 Abstract [facility] CONVERSION [address] [place] [address] Renu Vigil MD [address] [address] Social History Tobacco Use Types Packs/Day Years [...] st Contact Info) Description 11/02/2024 8:00 AM MESSAGE CLERK Office Visit [address] [place] [address] Ella Hodge [facility] 201 [facility] [place] [address] 01/19/2025 11:00 AM CDT Office Visit [facility] Medical [facility] Clinic [address] [place] [address] Stanley Jim MD [address] [place] [address] 06/23/2025 8:20 AM CDT Office Visit [address] [place] [address] Ella Hodge [address] [place] [address] documented as of this encounter Visit Diagnoses Not on filedocumented in this encounter Care Teams Granite Installer Relationship Specialty Start Date End Date Ziggy Harding MD [address] [facility] [address] PCP - General FAMILY PRACTICE 09/21/18 11/10/19 Demetrio Shore MD [address] [place] [address] PCP - General FAMILY PRACTICE 11/11/19 03/29/23 Joon Lewis PA [address] [place] [address] PHYSICIAN HIGH SCHOOL TUTOR 05/09/21 Callie Guerrero DO [address] [place] [address] Medical Billing Coder OBGYN 06/14/21 [place] [address] [phone] GASTROENTEROLOGY 06/14/21 Sergey Ramey PA [address] [facility] [address] [place] [phone] PHYSICIAN HIGH SCHOOL TUTOR 06/14/21 Jony Pruitt DPM [address] [place] [address], [address] [place] [address] Referring Physician PODIATRY/SURGERY 06/14/21 [place] [address] [place] [address] ORTHOPAEDIC SURGERY 06/14/21 documented as of this encounter
--- OUTSIDE RECORDS SUMMARY | 2024-10-24 12:03 | XMS_ITS | Encounter Summary ---
Author Organization [facility] Address [address] [place] [address]. [place], [place] [address] [place] [address] Care Team Providers Care Blind Slat Stapling Machine Operator Name Role Phone Unavailable Primary Care Provider Unavailabl e Encounter Details Date Type Department Care Team (Late Contact Info) Description 07/04/2016 Abstract [facility] Jia Anand, BUTTON SEWING MACHINE OPERATOR [address] [place] [address] Social History Tobacco Use Types Packs/Day Years Used Date Smoking Tobacco: Never Assessed Comments Unknown Sex and Gender Information Value Date Recorded Sex Assigned at Not on file Legal Sex Female 5:51 PM CDT Gender Identity Not on file Sexual Orientation Not on file documented as of this encounter Last Filed Vital Signs Vital Sign Reading Time Taken Comments Blood Pressure 130/72 07/04/2016 9:24 AM CDT Pulse 84 07/04/2016 9:24 AM CDT Temperature - - Respiratory Rate - - Oxygen Saturation - - Inhaled Oxygen Concentration - - Weight 64.4 kg (142 lb) 07/04/2016 9:24 AM CDT Height - - Body Mass Index 27.73 10/18/2015 1:21 PM MECHANICAL PRODUCT ENGINEER documented in this encounter Plan of Treatment Upcoming Encounters Date Type Department Care Team (Late st Contact Info) Description 11/02/2024 8:00 AM MECHANICAL PRODUCT ENGINEER Office Visit [facility] [address] [place] [address] Ella Hodge FNP [address] [place] [address] 01/19/2025 11:00 AM CDT Office Visit [facility] Medical Group Pulmonology Specialty Clinic - [address] [place] [address] Stanley Jim MD [address] [place] [address] 06/23/2025 8:20 AM CDT Office Visit [facility] 201 [facility] [address] [place] [address] Ella Hodge, [address] [place] [address] documented as of this encounter Visit Diagnoses Not on filedocumented in this encounter
--- OUTSIDE RECORDS SUMMARY | 2024-10-24 12:04 | XMS_ITS | Encounter Summary ---
Author Organization [facility] Address [address] [place] [address]. [place], [place] [address] [place] [address] Care Team Providers Care Painter Rough Name Role Phone Unavailable Primary Care Provider Unavailabl e Encounter Details Date Type Department Care Team (Late Contact Info) Description 01/25/2016 Abstract [facility] Clinics Conversion Md, Generic Conversion, Social [...] st Contact Info) Description 11/02/2024 8:00 AM INDIVIDUAL SMALL GROUP INSTRUCTOR Office Visit [facility] [address] [place] [address] Ella Hodge FNP [address] [place] [address] 01/19/2025 11:00 AM CDT Office Visit [facility] Medical Group Pulmonology Specialty Clinic - [place] [address] [place] [address] Stanley Jim MD [address] [place] [address] 06/23/2025 8:20 AM CDT Office Visit [address] [place] [phone] Ella Hodge, [address] [place] [address] documented as of this encounter Visit Diagnoses Not on filedocumented in this encounter
--- OUTSIDE RECORDS SUMMARY | 2024-10-24 12:04 | XMS_ITS | Encounter Summary ---
Author Organization [facility] Address [facility]6 [facility]. [place], [place] [address] [place] [address] Care Team Providers Care Tank Terminal Gauger Name Role Phone Ziggy Harding MD Primary Care Provider [phone] Encounter Details Date Type Department Care Team (Late st Contact Info) Description 07/15/2014 Abstract [facility] [address] [place] [address] Rajani Bacon, [address] [address] Social History Tobacco Use Types Packs/Day Years [...] (Late Contact Info) Description 11/02/2024 8:00 AM GREENHOUSE GROWER Office Visit [address] [place] [phone] Ella Hodge, [address] [place] [phone] 01/19/2025 11:00 AM CDT [facility] - [place] [address] [place] [address] Stanley Jim MD [address] [place] [address] 06/23/2025 8:20 AM CDT Office Visit [facility] [address] [place] [address] Ella Hodge FNP [address] [place] [address] documented as of this encounter Visit Diagnoses Diagnosis Disorder of teeth and supporting structures Unspecified disorder of the teeth and supporting structures documented in this encounter Care Teams Tank Terminal Gauger Relationship Specialty Start Date End Date Ziggy Harding MD 201 [facility] [place] [address] PCP - General FAMILY PRACTICE 09/21/18 11/10/19 documented as of this encounter
--- OUTSIDE RECORDS SUMMARY | 2024-10-24 12:04 | XMS_ITS | Encounter Summary ---
Author Organization [facility] Address [address] [place] [address]. [place], [place] [address] [place] [address] Care Team Providers Care Brick Shader Name Role Phone Unavailable Primary Care Provider Unavailabl e Encounter Details Date Type Department Care Team (Late Contact Info) Description 01/03/2015 Abstract [facility] Clinics Conversion Md, Generic Conversion, [...] st Contact Info) Description 11/02/2024 8:00 AM FOX FARMER Office Visit [facility] [address] [place] [address] Ella Hodge FNP [address] [place] [address] 01/19/2025 11:00 AM CDT Office Visit [facility] Medical Group Pul[facility]ty [facility] - [place] [address] [place] [address] Stanley Jim MD [address] [place] [address] 06/23/2025 8:20 AM CDT Office Visit [address] [place] [phone] Ella Hodge, [address] [place] [address] documented as of this encounter Visit Diagnoses Not on filedocumented in this encounter
--- OUTSIDE RECORDS SUMMARY | 2024-10-24 12:04 | XMS_ITS | Encounter Summary ---
Author Organization [facility] Address [address] [place] [address]. [place], [place] [address] [place] [address] Care Team Providers Care Adoption Coordinator Name Role Phone Unavailable Primary Care Provider Unavailabl e Encounter Details Date Type Department Care Team (Late Contact Info) Description 05/24/2015 Abstract [facility] Clinics Conversion Md, Generic Conversion, Social [...] st Contact Info) Description 11/02/2024 8:00 AM FLOORING MACHINE FEEDER Office Visit Pending sale to [facility] [address] [place] [address] Ella Hodge FNP [address] [place] [address] 01/19/2025 11:00 AM CDT Office Visit [facility] [place] [address] [place] [address] Stanley Jim MD [address] [place] [address] 06/23/2025 8:20 AM CDT Office Visit [address] [place] [id number] Ella Hodge, [address] [place] [address] documented as of this encounter Visit Diagnoses Not on filedocumented in this encounter
--- OUTSIDE RECORDS SUMMARY | 2024-10-24 12:04 | XMS_ITS | Encounter Summary ---
Author Organization [facility] Address [address] [place] [address]. [place], [place] [address] [place] [address] Care Team Providers Care Card Feeder Name Role Phone Unavailable Primary Care Provider Unavailabl e Encounter Details Date Type Department Care Team (Late Contact Info) Description 05/15/2016 Abstract [facility] Clinics Conversion Md, Generic Conversion, Social [...] st Contact Info) Description 11/02/2024 8:00 AM FREIGHT BOOKER Office Visit [facility] [address] [place] [address] Ella Hodge FNP [address] [place] [address] 01/19/2025 11:00 AM CDT Office Visit [facility] [place] [address] [place] [address] Stanley Jim MD [address] [place] [address] 06/23/2025 8:20 AM CDT Office Visit [address] [place] [phone] Ella Hodge, [address] [place] [address] documented as of this encounter Visit Diagnoses Not on filedocumented in this encounter
--- OUTSIDE RECORDS SUMMARY | 2024-10-24 12:04 | XMS_ITS | Encounter Summary ---
Author Organization [facility] Address [address] [place] [address]. [place], [place] [address] [place] [address] Care Team Providers Care Collet Driller Name Role Phone Unavailable Primary Care Provider Unavailabl e Encounter Details Date Type Department Care Team (Late st Contact Info) Description 01/07/2015 Abstract [facility] Conversion Ella Hodge [facility] [address] [facility] [place] [address] Social History Tobacco Use Types Packs/Day Years Used Date Smoking Tobacco: Never Assessed Comments Unknown Sex and Gender Information Value Date Recorded Sex Assigned at Not on file Legal Sex Female 5:51 PM CDT Gender Identity Not on file Sexual Orientation Not on file documented as of this encounter Last Filed Vital Signs Vital Sign Reading Time Taken Comments Blood Pressure 126/72 01/07/2015 8:06 AM CDT Pulse 72 01/07/2015 8:06 AM CDT Temperature - - Respiratory Rate - - Oxygen Saturation - - Inhaled Oxygen Concentration - - Weight - - Height - - Body Mass Index - - documented in this encounter Plan of Treatment Upcoming Encounters Date Type Department Care Team (Late st Contact Info) Description 11/02/2024 8:00 AM SALES AND MARKETING VICE PRESIDENT Office Visit [address] [place] [address] Ella Hodge [facility] [address] [place] [address] 01/19/2025 11:00 AM CDT Office Visit [facility] - [address] [place] [address] Stanley Jim MD [address] [address] [place] [address] 06/23/2025 8:20 AM CDT Office Visit [facility] [address] [facility] [address] Ella Hodge FNP [address] [place] [address] [place] [address] documented as of this encounter Procedures Procedure Name Priority Date/Time Associated Diagnosis Comments URINALYSIS AUTO DIP Routine 01/07/2015 8 :24 AM CDT documented in this encounter Results * URINALYSIS AUTO DIP (01/07/2015 8:24 AM CDT) BILIRUBIN (U) Negative [facility] UP TO EPIC CONVERSION URINE GLUCOSE Negative [facility] UP TO EPIC CONVERSION KETONES MG/DL (U) Negative [facility] TO EPIC CONVERSION NITRITES Negative [facility] T O EPIC CONVERSION PH (U) 6.5 [facility] T O EPIC CONVERSION PROTEIN (U) Negative [facility] TO EPIC CONVERSION SPECIFIC GRAVITY (U) 1.010 [facility] TO EPIC CONVERSION UROBILINOGEN 0.2 [facility] P TO EPIC CONVERSION LEUK ESTERASE (U) Small [facility] TO EPIC CONVERSION U BLOOD Negative [facility] T O EPIC CONVERSION 01/07/2015 8:24 AM CDT 01/07/2015 8:24 AM CDT Narrative [facility] TO EPIC CONVERSION - 01/07/2015 8:24 AM CDT This lab was migrated from [facility] and may be missing annotations or result text, please check the Media tab for the most complete results. us Ella YIP URINE ORDERABLES Final Re sult [facility] TO EPIC CONVERSION documented in this encounter Visit Diagnoses Not on filedocumented in this encounter
--- OUTSIDE RECORDS SUMMARY | 2024-10-24 12:04 | XMS_ITS | Encounter Summary ---
Author Organization [facility] Address [address] [place] [address]. [place], [place] [address] [place] [address] Care Team Providers Care Evaporator Operator Name Role Phone Unavailable Primary Care Provider Unavailabl e Encounter Details Date Type Department Care Team (Late Contact Info) Description 01/12/2016 Abstract [facility] Conversion Md, Generic Conversion, Social History [...] Contact Info) Description 11/02/2024 8:00 AM RUBBER ROLLER GRINDER Office Visit [facility] [address] [place] [address] Ella Hodge FNP [address] [place] [address] 01/19/2025 11:00 AM CDT Office Visit [facility] [place] [address] [place] [address] Stanley Jim MD [address] [place] [address] 06/23/2025 8:20 AM CDT Office Visit [address] [place] [phone] Ella Hodge, [address] [place] [address] documented as of this encounter Visit Diagnoses Not on filedocumented in this encounter
--- OUTSIDE RECORDS SUMMARY | 2024-10-24 12:04 | XMS_ITS | Encounter Summary ---
Author Organization [facility] Address [address] [place] [address]. [place], [place] [address] [place] [address] Care Team Providers Care Payroll Specialist Name Role Phone Unavailable Primary Care Provider Unavailabl e Encounter Details Date Type Department Care Team (Late st Contact Info) Description 10/18/2015 Abstract [facility] Conversion Meagan Grullon, [place] [address] [address] [place] [address] Social History Tobacco Use Types Packs/Day Years Used Date Smoking Tobacco: Never Assessed Comments Unknown Sex and Gender Information Value Date Recorded Sex Assigned at Not on file Legal Sex Female 5:51 PM CDT Gender Identity Not on file Sexual Orientation Not on file documented as of this encounter Last Filed Vital Signs Vital Sign Reading Time Taken Comments Blood Pressure 140/72 10/18/2015 1:21 PM MACHINE FARMWORKER Pulse 80 10/18/2015 1:21 PM MACHINE FARMWORKER Temperature - - Respiratory Rate - - Oxygen Saturation - - Inhaled Oxygen Concentration - - Weight 63.5 kg (140 lb) 10/18/2015 1:21 PM MACHINE FARMWORKER Height 152.4 cm (5') 10/18/2015 1:21 PM MACHINE FARMWORKER Body Mass Index 27.34 10/18/2015 1:21 PM MACHINE FARMWORKER documented in this encounter Plan of Treatment Upcoming Encounters Date Type Department Care Team (Late st Contact Info) Description 11/02/2024 8:00 AM MACHINE FARMWORKER Office Visit [facility] [address] [place] [address] Ella Hodge [facility] [address] [facility] [place] [address] 01/19/2025 11:00 AM CDT Office Visit [facility] - [address] [place] [address] Stanley Jim MD [address] [place] [address] 06/23/2025 8:20 AM CDT Office Visit [facility] [address] [place] [address] Ella Hodge, [facility] [address] [facility] [place] [address] documented as of this encounter Procedures Procedure Name Priority Date/Time Associated Diagnosis Comments URINALYSIS AUTO DIP Routine 10/18/2015 1 :39 PM MACHINE FARMWORKER documented in this encounter Results * URINALYSIS AUTO DIP (10/18/2015 1:39 PM MACHINE FARMWORKER) URINE GLUCOSE Negative [facility] UP TO EPIC CONVERSION BILIRUBIN (U) Negative [facility] UP TO EPIC CONVERSION KETONES MG/DL (U) Negative [facility] TO EPIC CONVERSION SPECIFIC GRAVITY (U) 1.010 [facility] TO EPIC CONVERSION U BLOOD Negative [facility] T O EPIC CONVERSION PH (U) 6.0 [facility] T O EPIC CONVERSION PROTEIN (U) Negative [facility] TO EPIC CONVERSION UROBILINOGEN 0.2 [facility] P TO EPIC CONVERSION NITRITES Negative [facility] T O EPIC CONVERSION LEUK ESTERASE (U) Trace [facility] TO EPIC CONVERSION 10/18/2015 1:39 PM MACHINE FARMWORKER 10/18/2015 1:39 PM MACHINE FARMWORKER Narrative [facility] TO EPIC CONVERSION - 10/18/2015 1:39 PM MACHINE FARMWORKER This lab was migrated from [facility] and may be missing annotations or result text, please check the Media tab for the most complete results. us Meagan Grullon ETCHER AIR[employer]FT URINE ORDERABLES Final Result [facility] TO EPIC CONVERSION documented in this encounter Visit Diagnoses Not on filedocumented in this encounter
--- OUTSIDE RECORDS SUMMARY | 2024-10-24 12:04 | XMS_ITS | Encounter Summary ---
Author Organization [facility] Address [address] [place] [address]. [place], [place] [address] [place] [address] Care Team Providers Care Vibrating Screed Operator Name Role Phone Unavailable Primary Care Provider Unavailabl e Encounter Details Date Type Department Care Team (Late Contact Info) Description 06/10/2014 Abstract [facility] Clinics Conversion Md, Generic Conversion, [...] Contact Info) Description 11/02/2024 8:00 AM NEWSPAPER COLUMNIST Office Visit [facility] [address] [place] [address] Ella Hodge FNP [address] [place] [address] 01/19/2025 11:00 AM CDT Office Visit [facility] Medical Group [facility] - [place] [address] [place] [address] Stanley Jim MD [address] [place] [address] 06/23/2025 8:20 AM CDT Office Visit [address] [place] [phone] Ella Hodge, [address] [place] [address] documented as of this encounter Visit Diagnoses Not on filedocumented in this encounter
--- OUTSIDE RECORDS SUMMARY | 2024-10-24 12:04 | XMS_ITS | Encounter Summary ---
Author Organization [facility] Address [address] [place] [address]. [place], [place] [address] [place] [address] Care Team Providers Care Receiving Supervisor Name Role Phone Unavailable Primary Care Provider Unavailabl e Encounter Details Date Type Department Care Team (Late st Contact Info) Description 12/20/2014 Abstract [facility] Meagan Haider, [place] [address] [place] [address] Social History Tobacco Use Types Packs/Day Years Used Date Smoking Tobacco: Never Assessed Comments Unknown Sex and Gender Information Value Date Recorded Sex Assigned at Not on file Legal Sex Female 5:51 PM CDT Gender Identity Not on file Sexual Orientation Not on file documented as of this encounter Last Filed Vital Signs Vital Sign Reading Time Taken Comments Blood Pressure 132/78 12/20/2014 8:46 AM WELDING MACHINE FEEDER Pulse 84 12/20/2014 8:46 AM WELDING MACHINE FEEDER Temperature - - Respiratory Rate - - Oxygen Saturation - - Inhaled Oxygen Concentration - - Weight 68 kg (150 lb) 12/20/2014 8:46 AM WELDING MACHINE FEEDER Height - - Body Mass Index 29.29 08/18/2013 11:13 AM CDT documented in this encounter Plan of Treatment Upcoming Encounters Date Type Department Care Team (Late st Contact Info) Description 11/02/2024 8:00 AM WELDING MACHINE FEEDER Office Visit [place] [address] [place] [address] Ella Hodge, [address] [place] [address] 01/19/2025 11:00 AM CDT Office Visit [facility] Medical Group Pul[facility]ty [facility] - [address] [place] [address] Stanley Jim MD [address] [place] [address] 06/23/2025 8:20 AM CDT Office Visit [facility] [address] [facility] [address] [place], [place] [phone] Ella Hodge [address] [place] [address] documented as of this encounter Visit Diagnoses Not on filedocumented in this encounter
--- OUTSIDE RECORDS SUMMARY | 2024-10-24 12:04 | XMS_ITS | Encounter Summary ---
Author Organization [facility] Address [facility]. [place], [place] [address] [place] [address] Care Team Providers Care Mobile Phone Salesperson Name Role Phone Ziggy Harding MD Primary Care Provider [phone] Demetrio Shore MD Primary Care Pr ovider Unavailable Joon Lewis Unavailable [phone] BradfordJrei whartondemarcus CAMPBELL Unavailable [phone] George Osorio MD Unavailable Sergey Ramey Unavailable [phone] Jony Pruitt DPM Unavailable [phone] Gama Graves MD Unavailable Encounter Details Date Type Department Care Team (Late st Contact Info) Description 01/02/2015 Abstract [facility] CONVERSION [address] [place] [address] , Generic Conversion, Social History Tobacco Use [...] st Contact Info) Description 11/02/2024 8:00 AM GASTROENTEROLOGIST Office Visit [address] [place] [address] Ella Hodge [facility] [address] [place] [address] 01/19/2025 11:00 AM CDT Office Visit [facility] [address] [place] [address] Stanley Jim MD [address] [place] [address] 06/23/2025 8:20 AM CDT Office Visit [address] [place] [address] Ella Hodge [address] [place] [address] documented as of this encounter Visit Diagnoses Not on filedocumented in this encounter Care Teams Mobile Phone Salesperson Relationship Specialty Start Date End Date Ziggy Harding MD [address] [place] [address] [place] [address] PCP - General FAMILY PRACTICE 09/21/18 11/10/19 Demetrio Shore MD [address] [place] [address] [place] [address] PCP - General FAMILY PRACTICE 11/11/19 03/29/23 oJon Lewis PA [address] [place] [address] PHYSICIAN TRACK REPAIR WORKER 05/09/21 Callie Guerrero DO [address] [place] [address] Medical Assistant Secretary OBGYN 06/14/21 [place] [address] [phone] GASTROENTEROLOGY 06/14/21 Sergey Ramey PA [address] [facility] [place] [address] PHYSICIAN TRACK REPAIR WORKER 06/14/21 Jony Pruitt DPM [address] [place] [address], [address] [place] [address] Referring Physician PODIATRY/SURGERY 06/14/21 [place] [address] [place] [address] ORTHOPAEDIC SURGERY 06/14/21 documented as of this encounter
--- OUTSIDE RECORDS SUMMARY | 2024-10-24 12:05 | XMS_ITS | Encounter Summary ---
Author Organization [facility] Address [address] [place] [address]. [place], [place] [address] [place] [address] Care Team Providers Care Locomotive Crane Engineer Name Role Phone Unavailable Primary Care Provider Unavailabl e Encounter Details Date Type Department Care Team (Late Contact Info) Description 06/07/2014 Abstract [facility] Meagan Haider, PATTERN FILER [address] [place] [address] Social History Tobacco Use Types Packs/Day Years Used Date Smoking Tobacco: Never Assessed Comments Unknown Sex and Gender Information Value Date Recorded Sex Assigned at Not on file Legal Sex Female 5:51 PM CDT Gender Identity Not on file Sexual Orientation Not on file documented as of this encounter Last Filed Vital Signs Vital Sign Reading Time Taken Comments Blood Pressure 132/80 06/07/2014 2:10 PM CDT Pulse 80 06/07/2014 2:10 PM CDT Temperature - - Respiratory Rate - - Oxygen Saturation - - Inhaled Oxygen Concentration - - Weight 65.3 kg (144 lb) 06/07/2014 2:10 PM CDT Height - - Body Mass Index 28.12 08/18/2013 11:13 AM CDT documented in this encounter Plan of Treatment Upcoming Encounters Date Type Department Care Team (Late st Contact Info) Description 11/02/2024 8:00 AM COMBATANT SWIMMER Office Visit [facility] [address] [place] [address] Ella Hodge FNP [address] [place] [address] 01/19/2025 11:00 AM CDT Office Visit [facility] Medical [facility] Pul[facility]ology Specialty Clinic - [address] [place] [address] Stanley Jim MD [address] [place] [address] 06/23/2025 8:20 AM CDT Office Visit [facility] 201 [facility] [address] [place], [place] [address] Ella Hodge, [address] [place] [address] documented as of this encounter Visit Diagnoses Not on filedocumented in this encounter
--- OUTSIDE RECORDS SUMMARY | 2024-10-24 12:05 | XMS_ITS | Encounter Summary ---
Author Organization [facility] Address [address] [place] [address]. [place], [place] [address] [place] [address] Care Team Providers Care Council On Aging Director Name Role Phone Unavailable Primary Care Provider Unavailabl e Encounter Details Date Type Department Care Team (Late st Contact Info) Description 08/18/2013 Abstract [facility] Conversion Renetta Fitzpatrick MD [address] [facility]. [address] [place] [address] Social History Tobacco Use Types Packs/Day Years Used Date Smoking Tobacco: Never Assessed Comments Unknown Sex and Gender Information Value Date Recorded Sex Assigned at Not on file Legal Sex Female 5:51 PM CDT Gender Identity Not on file Sexual Orientation Not on file documented as of this encounter Last Filed Vital Signs Vital Sign Reading Time Taken Comments Blood Pressure 120/78 08/18/2013 11:13 AM CDT Pulse 78 08/18/2013 11:13 AM CDT Temperature - - Respiratory Rate - - Oxygen Saturation - - Inhaled Oxygen Concentration - - Weight 64.9 kg (143 lb) 08/18/2013 11:13 AM CDT Height 152.4 cm (5') 08/18/2013 11:13 AM CDT Body Mass Index 27.93 08/18/2013 11:13 AM CDT documented in this encounter Plan of Treatment Upcoming Encounters Date Type Department Care Team (Late st Contact Info) Description 11/02/2024 8:00 AM CUSTOMER RELATIONS COORDINATOR Office Visit [address] [place] [address] Ella Hodge [facility] [address] [facility] [address] [place] [phone] 01/19/2025 11:00 AM CDT Office Visit [facility] Medical Group Pul[facility]ology Specialty Clinic - [address] [place] [address] Stanley Jim MD [address] [place] [address] 06/23/2025 8:20 AM CDT Office Visit [address] [place] [address] Ella Hodge [facility] [address] [facility] [place] [address] documented as of this encounter Visit Diagnoses Not on filedocumented in this encounter
--- OUTSIDE RECORDS SUMMARY | 2024-10-24 12:05 | XMS_ITS | Encounter Summary ---
Author Organization [facility] Address [address] [place] [address]. [place], [place] [address] [place] [address] Care Team Providers Care Culinary Chef Name Role Phone Unavailable Primary Care Provider Unavailabl e Encounter Details Date Type Department Care Team (Late Contact Info) Description 02/02/2014 Abstract [facility] Conversion Md, Generic Conversion, [...] st Contact Info) Description 11/02/2024 8:00 AM BOOK ILLUSTRATOR Office Visit [facility] [address] [place] [address] Ella Hodge FNP [address] [place] [address] 01/19/2025 11:00 AM CDT Office Visit [facility] Medical Group [facility] [place] [address] [place] [address] Stanley Jim MD [address] [place] [address] 06/23/2025 8:20 AM CDT Office Visit [address] [place] [phone] Ella Hodge, [address] [place] [address] documented as of this encounter Visit Diagnoses Not on filedocumented in this encounter
--- OUTSIDE RECORDS SUMMARY | 2024-10-24 12:05 | XMS_ITS | Encounter Summary ---
Author Organization [facility] Address [address] [place] [address]. [place], [place] [address] [place] [address] Care Team Providers Care Classifier Tender Name Role Phone Unavailable Primary Care Provider Unavailabl e Encounter Details Date Type Department Care Team (Late st Contact Info) Description 07/30/[address] [facility] Conversion Renetta Fitzpatrick MD [address] [facility]. [address] [place] [address] Social History Tobacco Use Types Packs/Day Years Used Date Smoking Tobacco: Never Assessed Comments Unknown Sex and Gender Information Value Date Recorded Sex Assigned at Not on file Legal Sex Female 5:51 PM CDT Gender Identity Not on file Sexual Orientation Not on file documented as of this encounter Last Filed Vital Signs Vital Sign Reading Time Taken Comments Blood Pressure 132/84 07/30/2013 2:18 PM CDT Pulse 78 07/30/2013 2:18 PM CDT Temperature - - Respiratory Rate - - Oxygen Saturation - - Inhaled Oxygen Concentration - - Weight 64.4 kg (142 lb) 07/30/2013 2:18 PM CDT Height 152.4 cm (5') 07/30/2013 2:18 PM CDT Body Mass Index 27.73 07/30/2013 2:18 PM CDT documented in this encounter Plan of Treatment Upcoming Encounters Date Type Department Care Team (Late st Contact Info) Description 11/02/2024 8:00 AM FOOTWEAR SALES ASSOCIATE Office Visit [address] [place] [address] Ella Hodge [facility] [address] [facility] [address] [place] [phone] 01/19/2025 11:00 AM CDT Office Visit [facility] Pul[facility]ology [facility]ty Clinic - [address] [place] [address] Stanley Jim MD [address] [place] [address] 06/23/2025 8:20 AM CDT Office Visit [address] [place] [address] Ella Hodge [facility] [address] [facility] [address] documented as of this encounter Visit Diagnoses Not on filedocumented in this encounter
--- OUTSIDE RECORDS SUMMARY | 2024-10-24 12:05 | XMS_ITS | Encounter Summary ---
Author Organization [facility] Address [address] [place] [address]. [place], [place] [address] [place] [address] Care Team Providers Care Forensic Audit Expert Name Role Phone Unavailable Primary Care Provider Unavailabl e Encounter Details Date Type Department Care Team (Late st Contact Info) Description 05/12/2013 Abstract [facility] Ziggy Harding MD [address] [place] [address] Social History Tobacco Use Types Packs/Day Years [...] Contact Info) Description 11/02/2024 8:00 AM HEALTH IT SPECIALIST Office Visit [facility] [address] [place] [address] Ella Hodge FNP [address] [place] [address] 01/19/2025 11:00 AM CDT Office Visit [facility] Medical [facility] [place] [address] [place] [address] Stanley Jim MD 3 [facility] [address] [address] 06/23/2025 8:20 AM CDT Office Visit [facility] [address] [facility] [place] [address] Ella Hodge, [facility] [address] [place], [place] [id number] documented as of this encounter Procedures Procedure Name Priority Date/Time Associated Diagnosis Comments LIPID PANEL Routine 05/12/2013 8:25 AM CDT HEPATIC FUNCTION PANEL Routine 05/12/2013 8:25 AM CDT documented in this encounter Results * HEPATIC FUNCTION PANEL (05/12/2013 8:25 AM CDT) BILIRUBIN TOTAL S/P/B 0.4 0.10 - 1.20 mg/dL [facility] TO EPIC CONVERSION BILIRUBIN DIRECT S/P/B 0.1 0.0 - 0.30 mg/dL [facility] TO EPIC CONVERSION ALKALINE PHOSPHATASE S/P/B 54 35 - 104 U/L [facility] TO EPIC CONVERSION ALBUMIN S/P/B 4.5 3.50 - 5.20 g/dL [facility] TO EPIC CONVERSION AST 24 0 - 32 U/L [facility] TO EPIC CONVERSION ALT 23 0 - 33 U/L [facility] TO EPIC CONVERSION TOTAL PROTEIN S/P/B 6.9 5.80 - 8.30 g/dL [facility] TO EPIC CONVERSION 05/12/2013 8:25 AM CDT 05/12/2013 8:25 AM CDT Narrative [facility] TO EPIC CONVERSION - 05/12/2013 8:25 AM CDT This lab was migrated from [facility] and may be missing annotations or result text, please check the Media tab for the most complete results. us Ziggy Harding MD LABORATORY Final Result [facility] TO EPIC CONVERSION * LIPID PANEL (05/12/2013 8:25 AM CDT) CHOLESTEROL 173 120 - 200 mg/dL [facility] TO EPIC CONVERSION TRIGLYCERIDES 171 20 - 200 mg/dL [facility] TO EPIC CONVERSION HDL 55 0 - 65 mg/dL [facility] TO EPIC CONVERSION LDL (CALCULATED) 84 10 - 130 mg/dL [facility] TO EPIC CONVERSION RISK 3 [facility] T O EPIC CONVERSION 05/12/2013 8:25 AM CDT 05/12/2013 8:25 AM CDT Narrative [facility] TO EPIC CONVERSION - 05/12/2013 8:25 AM CDT This lab was migrated from [facility] and may be missing annotations or result text, please check the Media tab for the most complete results. us Ziggy Harding MD LABORATORY Final Result [facility] TO EPIC CONVERSION documented in this encounter Visit Diagnoses Not on filedocumented in this encounter
--- OUTSIDE RECORDS SUMMARY | 2024-10-24 12:05 | XMS_ITS | Encounter Summary ---
Author Organization [facility] Address [address] [place] [address]. [place], [place] [address] [place] [address] Care Team Providers Care Networking Technology Instructor Name Role Phone Unavailable Primary Care Provider Unavailabl e Encounter Details Date Type Department Care Team (Late Contact Info) Description 05/03/2014 Abstract [facility] Conversion Md, Generic Conversion, Social History [...] st Contact Info) Description 11/02/2024 8:00 AM APARTMENT HOTEL MANAGER Office Visit [facility] [address] [place] [address] Ella Hodge FNP [address] [place] [address] 01/19/2025 11:00 AM CDT Office Visit [facility] Medical Group [facility] [place] [address] [place] [address] Stanley Jim MD [address] [place] [address] 06/23/2025 8:20 AM CDT Office Visit [address] [place] [phone] Ella Hodge, [address] [place] [address] documented as of this encounter Visit Diagnoses Not on filedocumented in this encounter
--- OUTSIDE RECORDS SUMMARY | 2024-10-24 12:05 | XMS_ITS | Encounter Summary ---
Author Organization [facility] Address [address] [place] [address]. [place], [place] [address] [place] [address] Care Team Providers Care Mechanical Laboratory Technician Name Role Phone Unavailable Primary Care Provider Unavailabl e Encounter Details Date Type Department Care Team (Late Contact Info) Description 05/11/2013 Abstract [facility] Conversion Md, Generic Conversion, Social [...] Contact Info) Description 11/02/2024 8:00 AM TECHNICAL ILLUSTRATIONS MAP INKER Office Visit [facility] [address] [place] [address] Ella Hodge FNP [address] [place] [address] 01/19/2025 11:00 AM CDT Office Visit [facility] Medical Group [facility] [place] [address] [place] [address] Stanley Jim MD [address] [place] [address] 06/23/2025 8:20 AM CDT Office Visit [address] [place] [phone] Ella Hodge, [address] [place] [address] documented as of this encounter Visit Diagnoses Not on filedocumented in this encounter
--- OUTSIDE RECORDS SUMMARY | 2024-10-24 12:05 | XMS_ITS | Encounter Summary ---
Author Organization [facility] Address [address] [place] [address]. [place], [place] [address] [place] [address] Care Team Providers Care Cloth Printer Helper Name Role Phone Unavailable Primary Care Provider Unavailabl e Encounter Details Date Type Department Care Team (Late st Contact Info) Description 05/04/[address] [facility] Jia Anand, [facility] [address] [place] [address] Social History Tobacco Use Types Packs/Day Years [...] st Contact Info) Description 11/02/2024 8:00 AM APPAREL RENTAL CLERK Office Visit [facility] [address] [place] [address] Ella Hodge, [facility] [address] [place] [address] 01/19/2025 11:00 AM CDT Office Visit [facility] Medical Group [facility] [address] [place] [address] Stanley Jim MD [address] [place] [address] [address] [place] [address] 06/23/2025 8:20 AM CDT Office Visit [facility] [address] [facility] [place] [address] Ella Hodge FNP [address] [place], [place] [phone] documented as of this encounter Procedures Procedure Name Priority Date/Time Associated Diagnosis Comments CREATININE WHOLE BLOOD Routine 05/04/2013 9:01 AM CDT documented in this encounter Results * CREATININE WHOLE BLOOD (05/04/2013 9:01 AM CDT) CREATININE S/P/B 0.6 0.50 - 1.20 mg/dL [facility] TO EPIC CONVERSION PATIENT'S AGE 67 YEARS [facility] UP TO EPIC CONVERSION EGFR NON-AFR. AMER. 105 ml/min [facility] TO EPIC CONVERSION 05/04/2013 9:01 AM CDT 05/04/2013 9:01 AM CDT Narrative [facility] TO EPIC CONVERSION - 05/04/2013 9:01 AM CDT This lab was migrated from [facility] and may be missing annotations or result text, please check the Media tab for the most complete results. Jia Leal MANAGEMENT PROFESSOR LABORATORY Final Result [facility] TO EPIC CONVERSION documented in this encounter Visit Diagnoses Not on filedocumented in this encounter
--- OUTSIDE RECORDS SUMMARY | 2024-10-24 12:05 | XMS_ITS | Encounter Summary ---
Author Organization [facility] Address [address] [place] [address]. [place], [place] [address] [place] [address] Care Team Providers Care Molecular Biology Director Name Role Phone Unavailable Primary Care Provider Unavailabl e Encounter Details Date Type Department Care Team (Late Contact Info) Description 01/11/[address] [facility] Conversion Md, Generic Conversion, Social [...] Contact Info) Description 11/02/2024 8:00 AM RUG SETTER AXMINSTER Office Visit [facility] [address] [place] [address] Ella Hodge FNP [address] [place] [address] 01/19/2025 11:00 AM CDT Office Visit [facility] Medical [facility] [place] [address] [place] [address] Stanley Jim MD [address] [place] [address] 06/23/2025 8:20 AM CDT Office Visit [address] [place] [phone] Ella Hodge, [address] [place] [address] documented as of this encounter Visit Diagnoses Not on filedocumented in this encounter
--- OUTSIDE RECORDS SUMMARY | 2024-10-24 12:05 | XMS_ITS | Encounter Summary ---
Author Organization [facility] Address [address] [place] [address]. [place], [place] [address] [place] [address] Care Team Providers Care Animal Behaviorist Name Role Phone Unavailable Primary Care Provider Unavailabl e Encounter Details Date Type Department Care Team (Late Contact Info) Description 06/15/2013 Abstract [facility] Conversion Md, Generic Conversion, Social [...] st Contact Info) Description 11/02/2024 8:00 AM ASSOCIATE DATA SCIENTIST Office Visit [facility] [address] [place] [address] Ella Hodge FNP [address] [place] [address] 01/19/2025 11:00 AM CDT Office Visit [facility] Medical Group [facility] [place] [address] [place] [address] Stanley Jim MD [address] [place] [address] 06/23/2025 8:20 AM CDT Office Visit [address] [place] [phone] Ella Hodge, [address] [place] [address] documented as of this encounter Visit Diagnoses Not on filedocumented in this encounter
--- OUTSIDE RECORDS SUMMARY | 2024-10-24 12:05 | XMS_ITS | Encounter Summary ---
Author Organization [facility] Address On license of [facility]. [place], [place] [address] [place] [address] Care Team Providers Care Palliative Care Nurse Name Role Phone Ziggy Harding MD Primary Care Provider [phone] Demetrio Shore MD Primary Care Pr ovider Unavailable Joon Lewis Unavailable [phone] Callie Guerrero DO Unavailable George Osorio MD Unavailable Sergey Ramey Unavailable Jony Pruitt DPM Unavailable Gama Graves MD Unavailable [phone] Encounter Details Date Type Department Care Team (Late st Contact Info) Description 05/11/2013 Abstract [facility] Diagnostic Imaging [address] [place] [address] Carrie Tompkins DO [address] [place] [address] Social History Tobacco Use Types Packs/Day Years [...] st Contact Info) Description 11/02/2024 8:00 AM APPLIANCE REPAIRER Office Visit [address] [place] [address] Ella Hodge FNP [address] [facility] [place] [address] 01/19/2025 11:00 AM CDT Office Visit [facility] Medical Group Pulmonology Specialty Clinic [facility] [address] [facility] [place] [address] Stanley Jim MD [address] [place] [address] 06/23/2025 8:20 AM CDT Office Visit [address] [place] [address] Ella Hodge FNP [address] [facility] [place] [address] documented as of this encounter Visit Diagnoses Not on filedocumented in this encounter Care Teams Palliative Care Nurse Relationship Specialty Start Date End Date Ziggy Harding MD [address] [facility] [place] [address] PCP - General FAMILY PRACTICE 09/21/18 11/10/19 Demetrio Shore MD [address] [place] [address] PCP - General FAMILY PRACTICE 11/11/19 03/29/23 Joon Lewis PA [address] [place] [address] PHYSICIAN DISTRIBUTION CENTER MANAGER 05/09/21 Callie Guerrero DO [address] [place] [address] Secretarial Stenographer OBGYN 06/14/21 [place] [address] [id number] GASTROENTEROLOGY 06/14/21 Sergey Ramey PA 200 [facility] [place] [address] PHYSICIAN DISTRIBUTION CENTER MANAGER 06/14/21 Jony Pruitt DPM [address] [place] [address], [address] [place] [address] Referring Physician PODIATRY/SURGERY 06/14/21 [place] [address] [place] [address] ORTHOPAEDIC SURGERY 06/14/21 documented as of this encounter
--- OUTSIDE RECORDS SUMMARY | 2024-10-24 12:05 | XMS_ITS | Encounter Summary ---
Author Organization [facility] Address [address] [place] [address]. [place], [place] [address] [place] [address] Care Team Providers Care House Carpenter Name Role Phone Unavailable Primary Care Provider Unavailabl e Encounter Details Date Type Department Care Team (Late Contact Info) Description 05/27/2013 Abstract [facility] Clinics Conversion Md, Generic [...] st Contact Info) Description 11/02/2024 8:00 AM COST CONTROL ANALYST Office Visit [facility] [address] [place] [address] Ella Hodge FNP [address] [place] [address] 01/19/2025 11:00 AM CDT Office Visit [facility] [place] Medical Group [facility] [place] [address] [place] [address] Stanley Jim MD [address] [place] [address] 06/23/2025 8:20 AM CDT Office Visit [address] [place] [phone] Ella Hodge, [address] [place] [address] documented as of this encounter Visit Diagnoses Not on filedocumented in this encounter
--- OUTSIDE RECORDS SUMMARY | 2024-10-24 12:05 | XMS_ITS | Encounter Summary ---
Author Organization [facility] Address [facility]. [place], [place] [address] [place] [address] Care Team Providers Care Auto Brake Technician Name Role Phone Ziggy Harding MD Primary Care Provider Demetrio Shore MD Primary Care Pr ovider Unavailable Joon Lewis Unavailable [phone] Cesar Callie DO Unavailable [phone] George Osorio MD Unavailable Sergey Ramey Unavailable Jony Pruitt DPM Unavailable Gama Graves MD Unavailable [phone] Encounter Details Date Type Department Care Team (Late st Contact Info) Description 05/04/2013 Abstract [facility] [address] [place] [address] Jia Leal FNP [address] [place] [address] Social History Tobacco Use Types Packs/Day Years [...] st Contact Info) Description 11/02/2024 8:00 AM GREIGE GOODS INSPECTOR Office Visit [address] [place] [address] Ella Hodge FNP [address] [facility] [place] [address] 01/19/2025 11:00 AM CDT Office Visit [facility] Medical Group Pul[facility] [address] [facility] [place] [address] Stanley Jim MD [address] [place] [address] 06/23/2025 8:20 AM CDT Office Visit [address] [place] [address] Ella Hodge FNP [address] [facility] [place] [address] documented as of this encounter Visit Diagnoses Not on filedocumented in this encounter Care Teams Auto Brake Technician Relationship Specialty Start Date End Date Ziggy Harding MD [address] [facility] [place] [address] PCP - General FAMILY PRACTICE 09/21/18 11/10/19 Demetrio Shore MD [address] [place] [address] PCP - General FAMILY PRACTICE 11/11/19 03/29/23 Joon Lewis PA [address] [place] [address] PHYSICIAN INCLINED RAILWAY OPERATOR 05/09/21 Callie Guerrero DO [address] [place] [address] Olive Pitter OBGYN 06/14/21 [place] [address] [phone] GASTROENTEROLOGY 06/14/21 Sergey Ramey PA [address] [facility] [place] [id number] PHYSICIAN INCLINED RAILWAY OPERATOR 06/14/21 Jony Pruitt DPM [address] [place] [address], [address] [place] [address] Referring Physician PODIATRY/SURGERY 06/14/21 [place] [address] [place] [address] ORTHOPAEDIC SURGERY 06/14/21 documented as of this encounter
--- OUTSIDE RECORDS SUMMARY | 2024-10-24 12:05 | XMS_ITS | Encounter Summary ---
Author Organization [facility] Address [address] [place] [address]. [place], [place] [address] [place] [address] Care Team Providers Care Prefabricator Name Role Phone Unavailable Primary Care Provider Unavailabl e Encounter Details Date Type Department Care Team (Late Contact Info) Description 08/12/2013 Abstract [facility] Clinics Conversion Md, Generic Conversion, Social [...] st Contact Info) Description 11/02/2024 8:00 AM TIMING INSPECTOR Office Visit [facility] [address] [place] [address] Ella Hodge FNP [address] [place] [address] 01/19/2025 11:00 AM CDT Office Visit [facility] Medical Group [facility] [place] [address] [place] [address] Stanley Jim MD [address] [place] [address] 06/23/2025 8:20 AM CDT Office Visit [address] [place] [phone] Ella Hodge, [address] [place] [address] documented as of this encounter Visit Diagnoses Not on filedocumented in this encounter
--- OUTSIDE RECORDS SUMMARY | 2024-10-24 12:05 | XMS_ITS | Encounter Summary ---
Author Organization [facility] Address [address] [place] [address]. [place], [place] [address] [place] [address] Care Team Providers Care Business Performance Manager Name Role Phone Unavailable Primary Care Provider Unavailabl e Encounter Details Date Type Department Care Team (Late Contact Info) Description 06/25/2013 Abstract [facility] Clinics Conversion Md, Generic Conversion, [...] st Contact Info) Description 11/02/2024 8:00 AM BLOW MOLDER Office Visit [facility] [address] [place] [address] Ella Hodge FNP [address] [place] [address] 01/19/2025 11:00 AM CDT Office Visit [facility] Medical Group [facility] - [place] [address] [place] [address] Stanley Jim MD [address] [place] [address] 06/23/2025 8:20 AM CDT Office Visit [address] [place] [phone] Ella Hodge, [address] [place] [address] documented as of this encounter Visit Diagnoses Not on filedocumented in this encounter
--- OUTSIDE RECORDS SUMMARY | 2024-10-24 12:05 | XMS_ITS | Encounter Summary ---
Author Organization [facility] Address [facility] [facility]. [place], [place] [address] [place] [address] Care Team Providers Care Overlay Plastician Name Role Phone Ziggy Harding MD Primary Care Provider Demetrio Shore MD Primary Care Pr ovider Unavailable Joon Lewis Unavailable [phone] CesarJeriCallie DO Unavailable George Osorio MD Unavailable Sergey Ramey Unavailable Jony Pruitt DPM Unavailable Gama Graves MD Unavailable [phone] Encounter Details Date Type Department Care Team (Late st Contact Info) Description 08/18/2013 Abstract [facility] Diagnostic Imaging [address] [facility] [place] [address] Renetta Fitzpatrick MD [address] [place] [address]. [address] [place] [address] Social History Tobacco Use Types Packs/Day Years [...] st Contact Info) Description 11/02/2024 8:00 AM ROGUER Office Visit [address] [place] [address] Ella Hodge [facility] [address] [facility] [place] [address] 01/19/2025 11:00 AM CDT Office Visit [facility] Medical Group Pulmonology Specialty Clinic - [address] [place] [address] Stanley Jim MD [address] [place] [address] 06/23/2025 8:20 AM CDT Office Visit [address] [place] [address] Ella Hodge [facility] [address] [facility] [place] [address] documented as of this encounter Visit Diagnoses Not on filedocumented in this encounter Care Teams Overlay Plastician Relationship Specialty Start Date End Date Ziggy Harding MD [address] [facility] [place] [address] PCP - General FAMILY PRACTICE 09/21/18 11/10/19 Demetrio Shore MD [address] [place] [address] PCP - General FAMILY PRACTICE 11/11/19 03/29/23 Joon Lewis PA [address] [place] [address] PHYSICIAN ARMORED TRUCK DRIVER 05/09/21 Callie Guerrero DO [address] [place] [address] K 9 Police Officer OBGYN 06/14/21 [place] [address] [phone] GASTROENTEROLOGY 06/14/21 Sergey Ramey PA 200 [facility] [place] [address] PHYSICIAN ARMORED TRUCK DRIVER 06/14/21 Jony Pruitt DPM [address] [place] [address], [facility] [address] [place] [address] Referring Physician PODIATRY/SURGERY 06/14/21 [place] [address] [place] [address] ORTHOPAEDIC SURGERY 06/14/21 documented as of this encounter
--- OUTSIDE RECORDS SUMMARY | 2024-10-24 12:05 | XMS_ITS | Encounter Summary ---
Author Organization [facility] Address [address] [place] [address]. [place], [place] [address] [place] [address] Care Team Providers Care Licensed Clinical Psychologist Name Role Phone Unavailable Primary Care Provider Unavailabl e Encounter Details Date Type Department Care Team (Late st Contact Info) Description 05/01/2013 Abstract [facility] Jia Anand, [address] [place] [phone] Social History Tobacco Use Types Packs/Day Years Used Date Smoking Tobacco: Never Assessed Comments Unknown Sex and Gender Information Value Date Recorded Sex Assigned at Not on file Legal Sex Female 5:51 PM CDT Gender Identity Not on file Sexual Orientation Not on file documented as of this encounter Last Filed Vital Signs Vital Sign Reading Time Taken Comments Blood Pressure 120/72 05/01/2013 8:58 AM CDT Pulse 80 05/01/2013 8:58 AM CDT Temperature - - Respiratory Rate - - Oxygen Saturation - - Inhaled Oxygen Concentration - - Weight 61.7 kg (136 lb) 05/01/2013 8:58 AM CDT Height 152.4 cm (5') 05/01/2013 8:58 AM CDT Body Mass Index 26.56 05/01/2013 8:58 AM CDT documented in this encounter Plan of Treatment Upcoming Encounters Date Type Department Care Team (Late st Contact Info) Description 11/02/2024 8:00 AM SERVICE DEVELOPER Office Visit [place] [address] [place] [address] Ella Hodge [facility] [address] [facility] [address] [place], [place] [id number] 01/19/2025 11:00 AM CDT Office Visit [facility] Medical Group [facility] - [place] [address] [facility] [place] [address] Stanley Jim MD [address] [place] [address] 06/23/2025 8:20 AM CDT Office Visit [facility] 201 [facility] [place] [place] [address] Ella Hodge [facility] [address] [facility] [place] [address] documented as of this encounter Visit Diagnoses Not on filedocumented in this encounter
--- OUTSIDE RECORDS SUMMARY | 2024-10-24 12:05 | XMS_ITS | Encounter Summary ---
Author Organization [facility] Address [address] [place] [address]. [place], [place] [address] [place] [address] Care Team Providers Care Revenue Liaison Name Role Phone Unavailable Primary Care Provider Unavailabl e Encounter Details Date Type Department Care Team (Late Contact Info) Description 06/04/2013 Abstract [facility] Conversion Md, Generic [...] Contact Info) Description 11/02/2024 8:00 AM QUALITY ASSURANCE ENGINEER Office Visit [facility] [address] [place] [address] Ella Hodge FNP [address] [place] [address] 01/19/2025 11:00 AM CDT Office Visit [facility] [place] [address] [place] [address] Stanley Jim MD [address] [place] [address] 06/23/2025 8:20 AM CDT Office Visit [address] [place] [phone] Ella Hodge, [address] [place] [address] documented as of this encounter Visit Diagnoses Not on filedocumented in this encounter
--- OUTSIDE RECORDS SUMMARY | 2024-10-24 12:05 | XMS_ITS | Encounter Summary ---
Author Organization [facility] Address [address] [place] [address]. [place], [place] [address] [place] [address] Care Team Providers Care Auto Winder Name Role Phone Ziggy Harding MD Primary Care Provider [phone] Encounter Details Date Type Department Care Team (Late st Contact Info) Description 06/25/2013 Abstract [facility] [address] [place] [address] Carrie Tompkins, DO [address] [place] [id number] Social History Tobacco Use Types Packs/Day Years [...] st Contact Info) Description 11/02/2024 8:00 AM COMMUNICATIONS DEPARTMENT CHAIR Office Visit [facility] [address] [place] [phone] Ella Hodge FNP [address] [place] [address] 01/19/2025 11:00 AM CDT Office Visit [facility] [place] 200 [facility] [place] [address] Stanley Jim MD [address] [place] [address] 06/23/2025 8:20 AM CDT Office Visit [facility] [address] [place], [place] [phone] Ella Hodge [facility] [address] [place] [phone] documented as of this encounter Visit Diagnoses Diagnosis Encounter for other physical therapy documented in this encounter Care Teams Auto Winder Relationship Specialty Start Date End Date Ziggy Harding MD [address] [facility] [address] [place], [place] [phone] PCP - General FAMILY PRACTICE 09/21/18 11/10/19 documented as of this encounter
--- OUTSIDE RECORDS SUMMARY | 2024-10-24 12:05 | XMS_ITS | Encounter Summary ---
Author Organization [facility] Address [facility]. [place], [place] [address] [place] [address] Care Team Providers Care Surface Miner Name Role Phone Ziggy Harding MD Primary Care Provider [phone] Demetrio Shore MD Primary Care Pr ovider Unavailable Joon Lewis Unavailable [phone] Callie Guerrero Unavailable George Osorio MD Unavailable Sergey Ramey Unavailable Jony Pruitt DPM Unavailable Gama Graves MD Unavailable [phone] Encounter Details Date Type Department Care Team (Late st Contact Info) Description 05/12/2013 Abstract [facility] [address] [address] Ziggy Harding MD [address] [place] [id number] Social History Tobacco Use Types Packs/Day Years [...] st Contact Info) Description 11/02/2024 8:00 AM CHORAL DIRECTOR Office Visit [address] [place] [address] Ella Hodge [facility] 201 [facility] [place] [address] 01/19/2025 11:00 AM CDT Office Visit [facility] [address] [place] [address] Stanley Jim MD [address] [place] [address] 06/23/2025 8:20 AM CDT Office Visit [address] [place] [address] Ella Hodge [facility] [address] [facility] [place] [address] documented as of this encounter Visit Diagnoses Not on filedocumented in this encounter Care Teams Surface Miner Relationship Specialty Start Date End Date Ziggy Harding MD [address] [facility] [place] [address] PCP - General FAMILY PRACTICE 09/21/18 11/10/19 Demetrio Shore MD [address] [place] [address] PCP - General FAMILY PRACTICE 11/11/19 03/29/23 Joon Lewis PA [address] [place] [address] PHYSICIAN FISHER WEIR 05/09/21 Callie Guerrero DO [address] [place] [address] Shooter'S Helper OBGYN 06/14/21 [place] [address] [id number] GASTROENTEROLOGY 06/14/21 Sergey Ramey PA [address] [place] [address] [place] [address] PHYSICIAN FISHER WEIR 06/14/21 Jony Pruitt DPM [address] [place] [address], [address] [place] [address] Referring Physician PODIATRY/SURGERY 06/14/21 [place] [address] [place] [address] ORTHOPAEDIC SURGERY 06/14/21 documented as of this encounter
--- OUTSIDE RECORDS SUMMARY | 2024-10-24 12:05 | XMS_ITS | Encounter Summary ---
Author Organization [facility] Address [facility]. [place], [place] [address] [place] [address] Care Team Providers Care Area Intelligence Technician Name Role Phone Ziggy Harding MD Primary Care Provider [phone] Demetrio Shore MD Primary Care Pr ovider Unavailable Joon Lewis Unavailable [phone] BradfordJeri whartondemarcus CAMPBELL Unavailable [phone] George Osorio MD Unavailable Sergey Ramey Unavailable [phone] Jony Pruitt DPM Unavailable [phone] Gama Graves MD Unavailable [phone] Encounter Details Date Type Department Care Team (Late st Contact Info) Description 01/11/2014 Abstract [facility] [address] [facility] [address] , Generic Conversion, Social History Tobacco Use [...] Contact Info) Description 11/02/2024 8:00 AM BOX BENDER Office Visit [address] [place] [address] Ella Hodge [facility] [address] [place] [address] 01/19/2025 11:00 AM CDT Office [facility] [address] [place] [address] Stanley Jim MD [address] [place] [address] 06/23/2025 8:20 AM CDT Office Visit [address] [place] [address] Ella Hodge [address] [place] [address] documented as of this encounter Visit Diagnoses Not on filedocumented in this encounter Care Teams Area Intelligence Technician Relationship Specialty Start Date End Date Ziggy Harding MD [address] [place] [address] [place] [address] PCP - General FAMILY PRACTICE 09/21/18 11/10/19 Demetrio Shore MD [address] [place] [address] [place] [address] PCP - General FAMILY PRACTICE 11/11/19 03/29/23 Joon Lewis PA [address] [place] [address] PHYSICIAN WIRELESS STORE MANAGER 05/09/21 Callie Guerrero DO [address] [place] [address] Service Center Assistant OBGYN 06/14/21 [place] [address] [id number] GASTROENTEROLOGY 06/14/21 Sergey Ramey PA 200 [facility] [place] [address] PHYSICIAN WIRELESS STORE MANAGER 06/14/21 Jony Pruitt DPM [address] [place] [address], [address] [place] [address] Referring Physician PODIATRY/SURGERY 06/14/21 [place] [address] [place] [address] ORTHOPAEDIC SURGERY 06/14/21 documented as of this encounter
--- OUTSIDE RECORDS SUMMARY | 2024-10-24 12:05 | XMS_ITS | Encounter Summary ---
Author Organization [facility] Address [facility]. [place], [place] [address] [place] [address] Care Team Providers Care Beef Skinner Name Role Phone Ziggy Harding MD Primary Care Provider [phone] Demetrio Shore MD Primary Care Pr ovider Unavailable Joon Lewis Unavailable [phone] Callie Guerrero DO Unavailable George Osorio MD Unavailable Sergey Ramey Unavailable Jony Pruitt DPM Unavailable Gaam Graves MD Unavailable [phone] Encounter Details Date Type Department Care Team (Late st Contact Info) Description 06/15/2013 Abstract [facility] Imaging [address] [place] [address] Carrie Tompkins DO [address] [place] [address] Social History Tobacco Use Types Packs/Day Years [...] st Contact Info) Description 11/02/2024 8:00 AM COLLEGE BASKETBALL COACH Office Visit [address] [place] [address] Ella Hodge FNP 201 [facility] [place] [address] 01/19/2025 11:00 AM CDT Office Visit [facility] 200 [facility] [place] [address] Stanley Jim MD [address] [place] [address] 06/23/2025 8:20 AM CDT Office Visit [address] [place] [address] Ella Hodge FNP [address] [facility] [place] [address] documented as of this encounter Visit Diagnoses Not on filedocumented in this encounter Care Teams Beef Skinner Relationship Specialty Start Date End Date iZggy Harding MD [address] [facility] [place] [address] PCP - General FAMILY PRACTICE 09/21/18 11/10/19 Demetrio Shoer MD [address] [place] [address] PCP - General FAMILY PRACTICE 11/11/19 03/29/23 Joon Lewis PA [address] [place] [address] PHYSICIAN GLUE SPRAYER 05/09/21 Callie Guerrero DO [address] [place] [address] Environmental Lawyer OBGYN 06/14/21 [place] [address] [phone] GASTROENTEROLOGY 06/14/21 Sergey Ramey PA 200 [facility] [place] [address] PHYSICIAN GLUE SPRAYER 06/14/21 Jony Pruitt DPM [address] [place] [address], [address] [place] [address] Referring Physician PODIATRY/SURGERY 06/14/21 [place] [address] [place] [address] ORTHOPAEDIC SURGERY 06/14/21 documented as of this encounter
--- OUTSIDE RECORDS SUMMARY | 2024-10-24 12:05 | XMS_ITS | Encounter Summary ---
Author Organization [facility] Address [address] [place] [address]. [place], [place] [address] [place] [address] Care Team Providers Care President [employer] Electronics [employer] Name Role Phone Unavailable Primary Care Provider Unavailabl e Encounter Details Date Type Department Care Team (Late Contact Info) Description 05/03/2013 Abstract [facility] Clinics Conversion Md, Generic [...] st Contact Info) Description 11/02/2024 8:00 AM STACKER TENDER Office Visit [facility] [address] [place] [address] Ella Hodge FNP [address] [place] [address] 01/19/2025 11:00 AM CDT Office Visit [facility] Pul[facility]ology [facility]ty [facility] [place] [address] [place] [address] Stanley Jim MD [address] [place] [address] 06/23/2025 8:20 AM CDT Office Visit [address] [place] [phone] Ella Hodge, [address] [place] [address] documented as of this encounter Visit Diagnoses Not on filedocumented in this encounter
--- OUTSIDE RECORDS SUMMARY | 2024-10-24 12:05 | XMS_ITS | Encounter Summary ---
Author Organization [facility] Address [address] [place] [address]. [place], [place] [address] [place] [address] Care Team Providers Care Equipment Worker Name Role Phone Unavailable Primary Care Provider Unavailabl e Encounter Details Date Type Department Care Team (Late st Contact Info) Description 05/10/2013 Abstract [facility] Carrie Pimentel, DO [address] [place] [id number] Social History Tobacco Use Types Packs/Day Years Used Date Smoking Tobacco: Never Assessed Comments Unknown Sex and Gender Information Value Date Recorded Sex Assigned at Not on file Legal Sex Female 5:51 PM CDT Gender Identity Not on file Sexual Orientation Not on file documented as of this encounter Last Filed Vital Signs Vital Sign Reading Time Taken Comments Blood Pressure 132/84 05/10/2013 9:39 AM CDT Pulse 80 05/10/2013 9:39 AM CDT Temperature - - Respiratory Rate - - Oxygen Saturation - - Inhaled Oxygen Concentration - - Weight 61.7 kg (136 lb) 05/10/2013 9:39 AM CDT Height 152.4 cm (5') 05/10/2013 9:39 AM CDT Body Mass Index 26.56 05/10/2013 9:39 AM CDT documented in this encounter Plan of Treatment Upcoming Encounters Date Type Department Care Team (Late st Contact Info) Description 11/02/2024 8:00 AM FINANCIAL ASSOCIATE Office Visit [facility] [address] [place] [address] Ella Hodge [facility] [address] [facility] [address] [place] [phone] 01/19/2025 11:00 AM CDT Office Visit [facility] Pulmonology Specialty Clinic - [address] [place] [address] Stanley Jim MD [address] [place] [address] 06/23/2025 8:20 AM CDT Office Visit [facility] 201 [facility] [place] [address] Ella Hodge [facility] [address] [facility] [place] [address] documented as of this encounter Visit Diagnoses Not on filedocumented in this encounter
--- OUTSIDE RECORDS SUMMARY | 2024-10-24 12:06 | XMS_ITS | Encounter Summary ---
Author Organization [facility] Address [address] [place] [address]. [place], [place] [address] [place] [address] Care Team Providers Care Production Internship Name Role Phone Unavailable Primary Care Provider Unavailabl e Encounter Details Date Type Department Care Team (Late Contact Info) Description 04/02/2013 Abstract [facility] Clinics Conversion Md, Generic Conversion, [...] st Contact Info) Description 11/02/2024 8:00 AM SURVEY WORKER Office Visit [facility] [address] [place] [address] Ella Hodge FNP [address] [place] [address] 01/19/2025 11:00 AM CDT Office Visit [facility] - [place] [address] [place] [address] Stanley Jim MD [address] [place] [address] 06/23/2025 8:20 AM CDT Office Visit [address] [place] [id number] Ella Hodge, [address] [place] [address] documented as of this encounter Visit Diagnoses Not on filedocumented in this encounter
--- OUTSIDE RECORDS SUMMARY | 2024-10-24 12:06 | XMS_ITS | Encounter Summary ---
Author Organization [facility] Address [address] [place] [address]. [place], [place] [address] [place] [address] Care Team Providers Care Patient Representative Name Role Phone Unavailable Primary Care Provider Unavailabl e Encounter Details Date Type Department Care Team (Late Contact Info) Description 03/25/2013 Abstract [facility] Clinics Conversion [...] st Contact Info) Description 11/02/2024 8:00 AM LUNG GUN OPERATOR Office Visit [facility] [address] [place] [address] Ella Hodge FNP [address] [place] [address] 01/19/2025 11:00 AM CDT Office Visit [facility] - [place] [address] [place] [address] Stanley Jim MD [address] [place] [address] 06/23/2025 8:20 AM CDT Office Visit [address] [place] [phone] Ella Hodge, [address] [place] [address] documented as of this encounter Visit Diagnoses Not on filedocumented in this encounter
--- OUTSIDE RECORDS SUMMARY | 2024-10-24 12:06 | XMS_ITS | Encounter Summary ---
Author Organization [facility] Address [address] [place] [address]. [place], [place] [address] [place] [address] Care Team Providers Care Teenage Program Director Name Role Phone Unavailable Primary Care Provider Unavailabl e Encounter Details Date Type Department Care Team (Late Contact Info) Description 04/10/2013 Abstract [facility] Meagan Haider, MACHINE CEMENTER [address] [place] [address] Social History Tobacco Use Types Packs/Day Years Used Date Smoking Tobacco: Never Assessed Comments Unknown Sex and Gender Information Value Date Recorded Sex Assigned at Not on file Legal Sex Female 5:51 PM CDT Gender Identity Not on file Sexual Orientation Not on file documented as of this encounter Last Filed Vital Signs Vital Sign Reading Time Taken Comments Blood Pressure 118/78 04/10/2013 9:59 AM CDT Pulse 92 04/10/2013 9:59 AM CDT Temperature - - Respiratory Rate - - Oxygen Saturation - - Inhaled Oxygen Concentration - - Weight 61.7 kg (136 lb) 04/10/2013 9:59 AM CDT Height - - Body Mass Index 26.56 03/17/2013 3:01 PM CDT documented in this encounter Plan of Treatment Upcoming Encounters Date Type Department Care Team (Late st Contact Info) Description 11/02/2024 8:00 AM DIRECTOR PATIENT FINANCIAL SERVICES Office Visit [facility] [address] [place] [address] Ella Hodge FNP [address] [place] [address] 01/19/2025 11:00 AM CDT Office Visit [facility] Pul[facility]ty Clinic - [address] [address] Stanley Jim MD [address] [place] [address] 06/23/2025 8:20 AM CDT Office Visit [facility] [address] [facility] [address] [place], [place] [address] Ella Hodge, [address] [place] [address] documented as of this encounter Visit Diagnoses Not on filedocumented in this encounter
--- OUTSIDE RECORDS SUMMARY | 2024-10-24 12:07 | XMS_ITS | Encounter Summary ---
Author Organization [facility] Address [address] [place] [address]. [place], [place] [address] [place] [address] Care Team Providers Care Gifted Program Teacher Name Role Phone Unavailable Primary Care Provider Unavailabl e Encounter Details Date Type Department Care Team (Late Contact Info) Description 09/25/2012 Abstract [facility] Clinics Conversion Md, Generic Conversion, [...] st Contact Info) Description 11/02/2024 8:00 AM HOUSE SHORER Office Visit [facility] [address] [place] [address] Ella Hodge FNP [address] [place] [address] 01/19/2025 11:00 AM CDT Office Visit [facility] - [place] [address] [place] [address] Stanley Jim MD [address] [place] [address] 06/23/2025 8:20 AM CDT Office Visit [address] [place] [phone] Ella Hodge, [address] [place] [address] documented as of this encounter Visit Diagnoses Not on filedocumented in this encounter
--- OUTSIDE RECORDS SUMMARY | 2024-10-24 12:07 | XMS_ITS | Encounter Summary ---
Author Organization [facility] Address [address] [place] [address]. [place], [place] [address] [place] [address] Care Team Providers Care Groutman Name Role Phone Unavailable Primary Care Provider Unavailabl e Encounter Details Date Type Department Care Team (Late Contact Info) Description 06/25/2012 Abstract [facility] Conversion Md, Generic Conversion, Social [...] st Contact Info) Description 11/02/2024 8:00 AM ACCESS SERVICES LIBRARIAN Office Visit [facility] [address] [place] [address] Ella Hodge FNP [address] [place] [address] 01/19/2025 11:00 AM CDT Office Visit [facility] - [place] [address] [place] [address] Stanley Jim MD [address] [place] [address] 06/23/2025 8:20 AM CDT Office Visit [address] [place] [id number] Ella Hodge, [address] [place] [address] documented as of this encounter Visit Diagnoses Not on filedocumented in this encounter
--- OUTSIDE RECORDS SUMMARY | 2024-10-24 12:07 | XMS_ITS | Encounter Summary ---
Author Organization [facility] Address [address] [place] [address]. [place], [place] [address] [place] [address] Care Team Providers Care Booking Police Officer Name Role Phone Unavailable Primary Care Provider Unavailabl e Encounter Details Date Type Department Care Team (Late Contact Info) Description 06/26/2012 Abstract [facility] Clinics Conversion Md, [...] st Contact Info) Description 11/02/2024 8:00 AM METAL BONDING HELPER Office Visit [facility] [address] [place] [address] Ella Hodge FNP [address] [place] [address] 01/19/2025 11:00 AM CDT Office Visit [facility] - [place] [address] [place] [address] Stanley Jim MD [address] [place] [address] 06/23/2025 8:20 AM CDT Office Visit [address] [place] [phone] Ella Hodge, [address] [place] [address] documented as of this encounter Visit Diagnoses Not on filedocumented in this encounter
--- OUTSIDE RECORDS SUMMARY | 2024-10-24 12:07 | XMS_ITS | Encounter Summary ---
Author Organization [facility] Address [facility] [place], [place] [address] [place] [address] Care Team Providers Care Brick Setter Name Role Phone Ziggy Harding MD Primary Care Provider Demetrio Shore MD Primary Care Pr ovider Unavailable Joon Lewis Unavailable [phone] Callie Guerrero Unavailable George Osorio MD Unavailable Sergey Ramey Unavailable Jony Pruitt DPM Unavailable [phone] Gama Graves MD Unavailable [phone] Encounter Details Date Type Department Care Team (Late st Contact Info) Description 03/18/2013 Abstract [facility] [address] [place] [address] Ziggy Harding MD [address] [place] [id number] Social History Tobacco Use Types Packs/Day Years [...] st Contact Info) Description 11/02/2024 8:00 AM EXTRUDER OPERATOR HELPER Office Visit [address] [place] [address] Ella Hodge [facility] 201 [facility] [place] [address] 01/19/2025 11:00 AM CDT Office [facility] [address] [place] [address] Stanley Jim MD [address] [place] [address] 06/23/2025 8:20 AM CDT Office Visit [address] [place] [address] Ella Hodge [facility] [address] [facility] [place] [address] documented as of this encounter Visit Diagnoses Not on filedocumented in this encounter Care Teams Brick Setter Relationship Specialty Start Date End Date Ziggy Harding MD [address] [facility] [place] [address] PCP - General FAMILY PRACTICE 09/21/18 11/10/19 Demetrio Shore MD [address] [place] [address] PCP - General FAMILY PRACTICE 11/11/19 03/29/23 Joon Lewis PA [address] [place] [address] PHYSICIAN RECRUITMENT COORDINATOR 05/09/21 Callie Guerrero DO [address] [place] [address] Accessioner OBGYN 06/14/21 [place] [address] [phone] GASTROENTEROLOGY 06/14/21 Sergey Ramey PA [address] [place] [address] [place] [address] PHYSICIAN RECRUITMENT COORDINATOR 06/14/21 Jony Pruitt DPM [address] [place] [address], [address] [place] [address] Referring Physician PODIATRY/SURGERY 06/14/21 [place] [address] [place] [address] ORTHOPAEDIC SURGERY 06/14/21 documented as of this encounter
--- OUTSIDE RECORDS SUMMARY | 2024-10-24 12:07 | XMS_ITS | Encounter Summary ---
Author Organization [facility] Address [facility]. [place], [place] [address] [place] [address] Care Team Providers Care Fuel System Maintenance Supervisor Name Role Phone Ziggy Harding MD Primary Care Provider Demetrio Shore MD Primary Care Pr ovider Unavailable Joon Lewis Unavailable [phone] Callie Guerrero Unavailable George Osorio MD Unavailable Sergey Ramey Unavailable [phone] Jony Pruitt DPM Unavailable Gama Graves MD Unavailable [phone] Encounter Details Date Type Department Care Team (Late st Contact Info) Description 12/17/2012 Abstract [facility] [address] [place] [address] Ziggy Harding MD [address] [place] [phone] Social History Tobacco Use Types Packs/Day Years [...] st Contact Info) Description 11/02/2024 8:00 AM AGRI BUSINESS AGENT Office Visit [address] [place] [address] Ella Hodge [facility] 201 [facility] [place] [address] 01/19/2025 11:00 AM CDT Office Visit [facility] [address] [place] [address] Stanley Jim MD [address] [place] [address] 06/23/2025 8:20 AM CDT Office Visit [address] [place] [address] Ella Hodge [facility] 201 [facility] [place] [address] documented as of this encounter Visit Diagnoses Not on filedocumented in this encounter Care Teams Fuel System Maintenance Supervisor Relationship Specialty Start Date End Date Ziggy Harding MD 201 [facility] [place] [address] PCP - General FAMILY PRACTICE 09/21/18 11/10/19 Demetrio Shore MD [address] [place] [address] PCP - General FAMILY PRACTICE 11/11/19 03/29/23 Joon Lewis PA [address] [place] [address] PHYSICIAN GROCERY STOCK CLERK 05/09/21 Callie Guerrero DO [address] [place] [address] Sales And Marketing Professional OBGYN 06/14/21 [place] [address] [phone] GASTROENTEROLOGY 06/14/21 Sergey Ramey PA [address] [place] [address] [place] [address] PHYSICIAN GROCERY STOCK CLERK 06/14/21 Jony Pruitt DPM [address] [place] [address], [address] [place] [address] Referring Physician PODIATRY/SURGERY 06/14/21 [place] [address] [place] [address] ORTHOPAEDIC SURGERY 06/14/21 documented as of this encounter
--- OUTSIDE RECORDS SUMMARY | 2024-10-24 12:07 | XMS_ITS | Encounter Summary ---
Author Organization [facility] Address [address] [place] [address]. [place], [place] [address] [place] [address] Care Team Providers Care Thread Clipper Name Role Phone Unavailable Primary Care Provider Unavailabl e Encounter Details Date Type Department Care Team (Late Contact Info) Description 06/28/2012 Abstract [facility] Conversion Md, Generic Conversion, Social History [...] Info) Description 11/02/2024 8:00 AM PROFESSOR OF FOOD BIOCHEMISTRY Office Visit [facility] [address] [place] [address] Ella Hodge FNP [address] [place] [address] 01/19/2025 11:00 AM CDT Office Visit [facility] [place] [address] [place] [address] Stanley Jim MD [address] [place] [address] 06/23/2025 8:20 AM CDT Office Visit [address] [place] [id number] Ella Hodge, [address] [place] [address] documented as of this encounter Visit Diagnoses Not on filedocumented in this encounter
--- OUTSIDE RECORDS SUMMARY | 2024-10-24 12:07 | XMS_ITS | Encounter Summary ---
Author Organization [facility] Address [address] [place] [address]. [place], [place] [address] [place] [address] Care Team Providers Care Carbon Cleaner Name Role Phone Unavailable Primary Care Provider Unavailabl e Encounter Details Date Type Department Care Team (Late Contact Info) Description 08/05/2012 Abstract [facility] Conversion Md, Generic Conversion, Social History [...] Sign Reading Time Taken Comments Blood Pressure 120/80 08/05/2012 2:07 PM CDT Pulse 62 08/05/2012 2:07 PM CDT Temperature - - Respiratory Rate - - Oxygen Saturation - - Inhaled Oxygen Concentration - - Weight 63.6 kg (140 lb 5 oz) 08/05/2012 2:07 PM CDT Height 152.4 cm (5') 08/05/2012 2:07 PM CDT Body Mass Index 27.4 08/05/2012 2:07 PM CDT documented in this encounter Plan of Treatment Upcoming Encounters Date Type Department Care Team (Late st Contact Info) Description 11/02/2024 8:00 AM BOILER FITTER Office Visit [address] [place] [address] [facility] [place] [address] 01/19/2025 11:00 AM CDT Office Visit [facility] - [address] [place] [address] Stanley Jim MD [address] [place] [address] 06/23/2025 8:20 AM CDT Office Visit [facility] 201 [facility] [place] [address] Ella Hodge FNP [address] [place] [address] documented as of this encounter Visit Diagnoses Not on filedocumented in this encounter
--- OUTSIDE RECORDS SUMMARY | 2024-10-24 12:07 | XMS_ITS | Encounter Summary ---
Author Organization [facility] Address [facility]6 [facility] [place] [place], [place] [address] [place] [address] Care Team Providers Care Chief Scientist Name Role Phone Ziggy Harding MD Primary Care Provider Demetrio Shore MD Primary Care Pr ovider Unavailable Joon Lewis Unavailable [phone] Cesar Callie DO Unavailable George Osorio MD Unavailable Sergey Ramey Unavailable [phone] Jony Pruitt DPM Unavailable Gama Graves MD Unavailable [phone] Encounter Details Date Type Department Care Team (Late st Contact Info) Description 02/19/2013 Abstract [facility] [address] [place] [address] Ella Hodge, MARINE UNDERWRITER [address] [place] [address] Social History Tobacco Use Types Packs/Day Years [...] st Contact Info) Description 11/02/2024 8:00 AM INFORMATION SECURITY ASSOCIATE Office Visit [address] [place] [address] [facility] [address] [facility] [place] [address] 01/19/2025 11:00 AM CDT Office Visit [facility] [address] [place] [address] Stanley Jim MD [address] [place] [address] 06/23/2025 8:20 AM CDT Office Visit [address] [place] [place] [address] Ella Hodge [address] [place] [address] documented as of this encounter Visit Diagnoses Not on filedocumented in this encounter Care Teams Chief Scientist Relationship Specialty Start Date End Date Ziggy Harding MD [address] [facility] [place] [address] PCP - General FAMILY PRACTICE 09/21/18 11/10/19 Demetrio Shore MD [address] [place] [address] PCP - General FAMILY PRACTICE 11/11/19 03/29/23 Joon Lewis PA [address] [place] [address] PHYSICIAN AIRCRAFT LAY OUT WORKER 05/09/21 Callie Guerrero DO [address] [place] [address] Call Center Receptionist OBGYN 06/14/21 [place] [address] [phone] GASTROENTEROLOGY 06/14/21 Sergey Ramey PA 200 [facility] [address] [place] [phone] PHYSICIAN AIRCRAFT LAY OUT WORKER 06/14/21 Jony Pruitt DPM [address] [place] [address], [address] [place] [address] Referring Physician PODIATRY/SURGERY 06/14/21 [place] [address] [place] [address] ORTHOPAEDIC SURGERY 06/14/21 documented as of this encounter
--- OUTSIDE RECORDS SUMMARY | 2024-10-24 12:07 | XMS_ITS | Encounter Summary ---
Author Organization [facility] Address [facility]. [place], [place] [address] [place] [address] Care Team Providers Care Barrel Handler Name Role Phone Ziggy Harding MD Primary Care Provider [phone] Demetrio Shore MD Primary Care Pr ovider Unavailable Joon Lewis Unavailable [phone] Cesar Callie DO Unavailable [phone] George Osorio MD Unavailable Sergey Ramey Unavailable Jony Pruitt DPM Unavailable Gama Graves MD Unavailable [phone] Encounter Details Date Type Department Care Team (Late st Contact Info) Description 06/25/2012 Abstract [facility] [address] [place] [address] Ella Hodge RESIDENTIAL PROGRAM COORDINATOR [address] [place] [address] Social History Tobacco Use Types Packs/Day Years [...] st Contact Info) Description 11/02/2024 8:00 AM LEAN SIX SIGMA SENIOR SPECIALIST Office Visit [address] [place] [address] Ella Hodge [facility] 201 [facility] [place] [address] 01/19/2025 11:00 AM CDT Office Visit [facility] [address] [place] [address] Stanley Jim MD [address] [place] [address] 06/23/2025 8:20 AM CDT Office Visit [address] [place] [address] Ella Hodge [address] [place] [address] documented as of this encounter Visit Diagnoses Not on filedocumented in this encounter Care Teams Barrel Handler Relationship Specialty Start Date End Date Ziggy Harding MD [address] [facility] [place] [address] PCP - General FAMILY PRACTICE 09/21/18 11/10/19 Demetrio Shore MD [address] [place] [address] PCP - General FAMILY PRACTICE 11/11/19 03/29/23 Joon Lewis PA [address] [place] [address] PHYSICIAN SUPPLY CHAIN ENGINEER 05/09/21 Callie Guerrero DO [address] [place] [address] Insole Bottom Filler OBGYN 06/14/21 [place] [address] [phone] GASTROENTEROLOGY 06/14/21 Sergey Ramey PA 200 [facility] [place] [address] PHYSICIAN SUPPLY CHAIN ENGINEER 06/14/21 Jony Pruitt DPM [address] [place] [address], [address] [place] [address] Referring Physician PODIATRY/SURGERY 06/14/21 [place] [address] [place] [address] ORTHOPAEDIC SURGERY 06/14/21 documented as of this encounter
--- OUTSIDE RECORDS SUMMARY | 2024-10-24 12:07 | XMS_ITS | Encounter Summary ---
Author Organization [facility] Address [address] [place] [address]. [place], [place] [address] [place] [address] Care Team Providers Care Clinical Nurse Reviewer Name Role Phone Unavailable Primary Care Provider Unavailabl e Encounter Details Date Type Department Care Team (Late Contact Info) Description 07/20/2012 Abstract [facility] Ella Hodge, [place] [address] [place] [address] Social History Tobacco Use Types Packs/Day Years Used Date Smoking Tobacco: Never Assessed Comments Unknown Sex and Gender Information Value Date Recorded Sex Assigned at Not on file Legal Sex Female 5:51 PM CDT Gender Identity Not on file Sexual Orientation Not on file documented as of this encounter Last Filed Vital Signs Vital Sign Reading Time Taken Comments Blood Pressure 120/60 07/20/2012 8:03 AM CDT Pulse 80 07/20/2012 8:03 AM CDT Temperature - - Respiratory Rate - - Oxygen Saturation - - Inhaled Oxygen Concentration - - Weight 62.1 kg (137 lb) 07/20/2012 8:03 AM CDT Height - - Body Mass Index 26.76 06/17/2012 3:22 PM CDT documented in this encounter Plan of Treatment Upcoming Encounters Date Type Department Care Team (Late st Contact Info) Description 11/02/2024 8:00 AM DELI COOK Office Visit [facility] [address] [place] [address] Ella Hodge [address] [place] [address] 01/19/2025 11:00 AM CDT Office Visit [facility] Pul[facility]ology Specialty Clinic - [address] [place] [address] Stanley Jim MD [address] [place] [address] 06/23/2025 8:20 AM CDT Office Visit [facility] 201 [facility] [place] [address] Ella Hodge [address] [place] [address] documented as of this encounter Visit Diagnoses Not on filedocumented in this encounter
--- OUTSIDE RECORDS SUMMARY | 2024-10-24 12:07 | XMS_ITS | Encounter Summary ---
Author Organization [facility] Address [address] [place] [address]. [place], [place] [address] [place] [address] Care Team Providers Care Dairy Farmworker Name Role Phone Unavailable Primary Care Provider Unavailabl e Encounter Details Date Type Department Care Team (Late Contact Info) Description 12/22/2012 Abstract [facility] Conversion Md, Generic Conversion, Social [...] st Contact Info) Description 11/02/2024 8:00 AM DRAFTER MECHANICAL Office Visit [facility] [address] [place] [address] Ella Hodge FNP [address] [place] [address] 01/19/2025 11:00 AM CDT Office Visit [facility] [place] [address] [place] [address] Stanley Jim MD [address] [place] [address] 06/23/2025 8:20 AM CDT Office Visit [address] [place] [id number] Ella Hodge, [address] [place] [address] documented as of this encounter Visit Diagnoses Not on filedocumented in this encounter
--- OUTSIDE RECORDS SUMMARY | 2024-10-24 12:07 | XMS_ITS | Encounter Summary ---
Author Organization [facility] Address [address] [place] [address]. [place], [place] [address] [place] [address] Care Team Providers Care Vehicle Care Specialist Name Role Phone Unavailable Primary Care Provider Unavailabl e Encounter Details Date Type Department Care Team (Late Contact Info) Description 03/18/2013 Abstract [facility] Conversion Md, Generic Conversion, Social [...] st Contact Info) Description 11/02/2024 8:00 AM CRYPTOGRAPHY TEACHER Office Visit [facility] [address] [place] [address] Ella Hodge FNP [address] [place] [address] 01/19/2025 11:00 AM CDT Office Visit [facility] - [place] [address] [place] [address] Stanley Jim MD [address] [place] [address] 06/23/2025 8:20 AM CDT Office Visit [address] [place] [id number] Ella Hodge, [address] [place] [address] documented as of this encounter Visit Diagnoses Not on filedocumented in this encounter
--- OUTSIDE RECORDS SUMMARY | 2024-10-24 12:07 | XMS_ITS | Encounter Summary ---
Author Organization [facility] Address [address] [place] [address]. [place], [place] [address] [place] [address] Care Team Providers Care Pantry Attendant Name Role Phone Unavailable Primary Care Provider Unavailabl e Encounter Details Date Type Department Care Team (Late Contact Info) Description 03/17/2013 Abstract [facility] Ziggy Harding MD [facility] [address] [place] [id number] Social History Tobacco Use Types Packs/Day Years Used Date Smoking Tobacco: Never Assessed Comments Unknown Sex and Gender Information Value Date Recorded Sex Assigned at Not on file Legal Sex Female 5:51 PM CDT Gender Identity Not on file Sexual Orientation Not on file documented as of this encounter Last Filed Vital Signs Vital Sign Reading Time Taken Comments Blood Pressure 130/82 03/17/2013 3:01 PM CDT Pulse 72 03/17/2013 3:01 PM CDT Temperature - - Respiratory Rate - - Oxygen Saturation - - Inhaled Oxygen Concentration - - Weight 63 kg (139 lb) 03/17/2013 3:01 PM CDT Height 152.4 cm (5') 03/17/2013 3:01 PM CDT Body Mass Index 27.15 03/17/2013 3:01 PM CDT documented in this encounter Plan of Treatment Upcoming Encounters Date Type Department Care Team (Late st Contact Info) Description 11/02/2024 8:00 AM MACHINE MAINTENANCE SERVICER Office Visit [place] [address] [facility] [place] [address] Ella Hodge [facility] [address] [facility] [address] [place], [place] [id number] 01/19/2025 11:00 AM CDT Office Visit [facility] - [place] [address] [facility] [place] [address] Stanley Jim MD [address] [place] [address] 06/23/2025 8:20 AM CDT Office Visit [facility] 201 [facility] [address] [place] [id number] Ella Hodge [facility] [address] [facility] [place] [address] documented as of this encounter Visit Diagnoses Not on filedocumented in this encounter
--- OUTSIDE RECORDS SUMMARY | 2024-10-24 12:07 | XMS_ITS | Encounter Summary ---
Author Organization [facility] Address [address] [place] [address]. [place], [place] [address] [place] [address] Care Team Providers Care Pasting Machine Offbearer Name Role Phone Unavailable Primary Care Provider Unavailabl e Encounter Details Date Type Department Care Team (Late Contact Info) Description 02/19/2013 Abstract [facility] Conversion Ella Hodge, [place] [address] [place] [address] Social History Tobacco Use Types Packs/Day Years Used Date Smoking Tobacco: Never Assessed Comments Unknown Sex and Gender Information Value Date Recorded Sex Assigned at Not on file Legal Sex Female 5:51 PM CDT Gender Identity Not on file Sexual Orientation Not on file documented as of this encounter Last Filed Vital Signs Vital Sign Reading Time Taken Comments Blood Pressure 120/60 02/19/2013 2:23 PM CDT Pulse 64 02/19/2013 2:23 PM CDT Temperature - - Respiratory Rate - - Oxygen Saturation - - Inhaled Oxygen Concentration - - Weight 63.5 kg (140 lb) 02/19/2013 2:23 PM CDT Height - - Body Mass Index 27.34 01/25/2013 3:58 PM CDT documented in this encounter Plan of Treatment Upcoming Encounters Date Type Department Care Team (Late st Contact Info) Description 11/02/2024 8:00 AM CREDIT CONTROL ASSISTANT Office Visit [facility] [address] [place] [address] Ella Hodge [address] [place] [address] 01/19/2025 11:00 AM CDT Office Visit [facility] Pulmonology Specialty Clinic - [address] [place] [address] Stanley Jim MD [address] [place] [address] 06/23/2025 8:20 AM CDT Office Visit [facility] 201 [facility] [place] [address] Ella Hodge [address] [place] [address] documented as of this encounter Visit Diagnoses Not on filedocumented in this encounter
--- OUTSIDE RECORDS SUMMARY | 2024-10-24 12:07 | XMS_ITS | Encounter Summary ---
Author Organization [facility] Address [address] [place] [address]. [place], [place] [address] [place] [address] Care Team Providers Care Field Organizer Name Role Phone Unavailable Primary Care Provider Unavailabl e Encounter Details Date Type Department Care Team (Late st Contact Info) Description 01/25/2013 Abstract [facility] Conversion Md, Generic Conversion, Social [...] Reading Time Taken Comments Blood Pressure 130/78 01/25/2013 3:58 PM CDT Pulse 74 01/25/2013 3:58 PM CDT Temperature - - Respiratory Rate - - Oxygen Saturation - - Inhaled Oxygen Concentration - - Weight 62.6 kg (138 lb) 01/25/2013 3:58 PM CDT Height 152.4 cm (5') 01/25/2013 3:58 PM CDT Body Mass Index 26.95 01/25/2013 3:58 PM CDT documented in this encounter Plan of Treatment Upcoming Encounters Date Type Department Care Team (Late st Contact Info) Description 11/02/2024 8:00 AM GRAINING PRESS OPERATOR Office Visit [address] [place] [address] Ella Hodge [place] [address] [place] [id number] 01/19/2025 11:00 AM CDT Office Visit [facility] Pulmonology Specialty Clinic - [address] [place] [place] [address] Stanley Jim MD [address] [place] [address] 06/23/2025 8:20 AM CDT Office Visit [facility] 201 [facility] [address] Ella Hodge FNP [address] [facility] [place] [address] documented as of this encounter Visit Diagnoses Not on filedocumented in this encounter
--- OUTSIDE RECORDS SUMMARY | 2024-10-24 12:07 | XMS_ITS | Encounter Summary ---
Author Organization [facility] Address [address] [place] [address]. [place], [place] [address] [place] [address] Care Team Providers Care Electroencephalogram Technologist Name Role Phone Unavailable Primary Care Provider Unavailabl e Encounter Details Date Type Department Care Team (Late Contact Info) Description 02/10/2013 Abstract [facility] Clinics Conversion Md, Generic Conversion, Social [...] Contact Info) Description 11/02/2024 8:00 AM CLOTH PRINTER HELPER Office Visit [facility] [address] [address] Ella Hodge FNP [address] [place] [address] 01/19/2025 11:00 AM CDT Office Visit [facility] [place] [address] [place] [address] Stanley Jim MD [address] [place] [address] 06/23/2025 8:20 AM CDT Office Visit [address] [place] [phone] Ella Hodge, [address] [place] [address] documented as of this encounter Visit Diagnoses Not on filedocumented in this encounter
--- OUTSIDE RECORDS SUMMARY | 2024-10-24 12:07 | XMS_ITS | Encounter Summary ---
Author Organization [facility] Address [facility]. [place], [place] [address] [place] [address] Care Team Providers Care Manager Traffic Name Role Phone Ziggy Harding MD Primary Care Provider Demetrio Shore MD Primary Care Pr ovider Unavailable Joon Lewis Unavailable [phone] Callie Guerrero Unavailable George Osorio MD Unavailable Sergey Ramey Unavailable Jony Pruitt DPM Unavailable [phone] Gama Graves MD Unavailable [phone] Encounter Details Date Type Department Care Team (Late st Contact Info) Description 10/02/2012 Abstract [facility] [address] [place] [address] Ziggy Harding MD [address] [place] [phone] Social History Tobacco Use Types Packs/Day Years [...] Info) Description 11/02/2024 8:00 AM DIRECTOR OF ONLINE EDUCATION Office Visit [address] [place] [address] [facility] 201 [facility] [place] [address] 01/19/2025 11:00 AM CDT Office Visit [facility] [address] [place] [address] Stanley Jim MD [address] [place] [address] 06/23/2025 8:20 AM CDT Office Visit [address] [place] [address] [facility] [address] [facility] [place] [address] documented as of this encounter Visit Diagnoses Not on filedocumented in this encounter Care Teams Manager Traffic Relationship Specialty Start Date End Date Ziggy Harding MD [address] [facility] [place] [address] PCP - General FAMILY PRACTICE 09/21/18 11/10/19 Demetrio Shore MD [address] [place] [address] PCP - General FAMILY PRACTICE 11/11/19 03/29/23 Joon Lewis PA [address] [place] [address] PHYSICIAN COUNSELOR/ART THERAPIST 05/09/21 Callie Guerrero DO [address] [place] [address] Customer Advisor OBGYN 06/14/21 [place] [address] [phone] GASTROENTEROLOGY 06/14/21 Sergey Ramey PA [address] [place] [address] [place] [address] PHYSICIAN COUNSELOR/ART THERAPIST 06/14/21 Jony Pruitt DPM [address] [place] [address], [address] [place] [address] Referring Physician PODIATRY/SURGERY 06/14/21 [place] [address] [place] [address] ORTHOPAEDIC SURGERY 06/14/21 documented as of this encounter
--- OUTSIDE RECORDS SUMMARY | 2024-10-24 12:07 | XMS_ITS | Encounter Summary ---
Author Organization [facility] Address [address] [place] [address]. [place], [place] [address] [place] [address] Care Team Providers Care Knockout Machine Operator Name Role Phone Unavailable Primary Care Provider Unavailabl e Encounter Details Date Type Department Care Team (Late Contact Info) Description 10/02/2012 Abstract [facility]ics Conversion Md, Generic Conversion, [...] st Contact Info) Description 11/02/2024 8:00 AM GROOVING MACHINE OPERATOR Office Visit [facility] [address] [place] [address] Ella Hodge FNP [address] [place] [address] 01/19/2025 11:00 AM CDT Office Visit [facility] [place] [address] [place] [address] Stanley Jim MD [address] [place] [address] 06/23/2025 8:20 AM CDT Office Visit [address] [place] [phone] Ella Hodge, [address] [place] [address] documented as of this encounter Visit Diagnoses Not on filedocumented in this encounter
--- OUTSIDE RECORDS SUMMARY | 2024-10-24 12:07 | XMS_ITS | Encounter Summary ---
Author Organization [facility] Address [address] [place] [address]. [place], [place] [address] [place] [address] Care Team Providers Care Distributor Publications Name Role Phone Unavailable Primary Care Provider Unavailabl e Encounter Details Date Type Department Care Team (Late st Contact Info) Description 12/16/2012 Abstract [facility] Ziggy Harding MD [facility] [address] [place] [id number] Social History Tobacco Use Types Packs/Day Years Used Date Smoking Tobacco: Never Assessed Comments Unknown Sex and Gender Information Value Date Recorded Sex Assigned at Not on file Legal Sex Female 5:51 PM CDT Gender Identity Not on file Sexual Orientation Not on file documented as of this encounter Last Filed Vital Signs Vital Sign Reading Time Taken Comments Blood Pressure 138/80 12/16/2012 1:59 PM XM1 TANK DRIVER Pulse 56 12/16/2012 1:59 PM XM1 TANK DRIVER Temperature - - Respiratory Rate - - Oxygen Saturation - - Inhaled Oxygen Concentration - - Weight 64.9 kg (143 lb) 12/16/2012 1:59 PM XM1 TANK DRIVER Height 152.4 cm (5') 12/16/2012 1:59 PM XM1 TANK DRIVER Body Mass Index 27.93 12/16/2012 1:59 PM XM1 TANK DRIVER documented in this encounter Plan of Treatment Upcoming Encounters Date Type Department Care Team (Late st Contact Info) Description 11/02/2024 8:00 AM XM1 TANK DRIVER Office Visit [facility] [address] [place] [address] Ella Hodge [facility] 201 [facility] [place] [address] 01/19/2025 11:00 AM CDT Office Visit [facility] - [address] [place] [address] Stanley Jim MD [address] [place] [address] 06/23/2025 8:20 AM CDT Office Visit [facility] 201 [facility] [place] [address] Ella Hodge [facility] 201 [facility] [place] [address] documented as of this encounter Visit Diagnoses Not on filedocumented in this encounter
--- OUTSIDE RECORDS SUMMARY | 2024-10-24 12:09 | XMS_ITS | Encounter Summary ---
Author Organization [facility] Address [address] [place] [address]. [place], [place] [address] [place] [address] Care Team Providers Care Service Crew Supervisor Name Role Phone Unavailable Primary Care Provider Unavailabl e Encounter Details Date Type Department Care Team (Late st Contact Info) Description 12/06/2011 Abstract [facility] Juma [place] MD [facility] [place] [place] [address] Social History Tobacco Use Types Packs/Day Years Used Date Smoking Tobacco: Never Assessed Comments Unknown Sex and Gender Information Value Date Recorded Sex Assigned at Not on file Legal Sex Female 5:51 PM CDT Gender Identity Not on file Sexual Orientation Not on file documented as of this encounter Last Filed Vital Signs Vital Sign Reading Time Taken Comments Blood Pressure 128/70 12/06/2011 3:39 PM ASSOCIATE MARKETING MANAGER Pulse 74 12/06/2011 3:39 PM ASSOCIATE MARKETING MANAGER Temperature - - Respiratory Rate - - Oxygen Saturation - - Inhaled Oxygen Concentration - - Weight 63.5 kg (140 lb) 12/06/2011 3:39 PM ASSOCIATE MARKETING MANAGER Height 152.4 cm (5') 12/06/2011 3:39 PM ASSOCIATE MARKETING MANAGER Body Mass Index 27.34 12/06/2011 3:39 PM ASSOCIATE MARKETING MANAGER documented in this encounter Plan of Treatment Upcoming Encounters Date Type Department Care Team (Late st Contact Info) Description 11/02/2024 8:00 AM ASSOCIATE MARKETING MANAGER Office Visit [facility] [address] [place] [address] Ella Hodge [facility] [address] [facility] [place] [address] 01/19/2025 11:00 AM CDT Office Visit [facility] Medical [facility] - [address] [place] [address] Stanley Jim MD [address] [place] [address] 06/23/2025 8:20 AM CDT Office Visit [facility] [address] [facility] [address] [place], [place] [phone] Ella Hodge [facility] [address] [facility] [place] [address] documented as of this encounter Visit Diagnoses Not on filedocumented in this encounter
--- OUTSIDE RECORDS SUMMARY | 2024-10-24 12:09 | XMS_ITS | Encounter Summary ---
Author Organization [facility] Address [address] [place] [address]. [place], [place] [address] [place] [address] Care Team Providers Care Pan Puller Name Role Phone Ziggy Harding MD Primary Care Provider [phone] Encounter Details Date Type Department Care Team (Late st Contact Info) Description 07/04/2009 Abstract [facility] CONVERSION [address] [place] [address] Brien Dyer, DPM [facility] [address] [address] Social History Tobacco Use Types Packs/Day Years [...] st Contact Info) Description 11/02/2024 8:00 AM INSTITUTIONAL NUTRITION CONSULTANT Office Visit [address] [place] [address] Ella Hodge [address] [place] [address] 01/19/2025 11:00 AM CDT Office Visit [facility] [place] [address] [place] [address] Stanley Jim MD [address] [place] [address] 06/23/2025 8:20 AM CDT Office Visit [facility] [address] [place] [address] Ella Hodge RADIO REPAIRMAN [address] [place] [address] documented as of this encounter Visit Diagnoses Not on filedocumented in this encounter Care Teams Pan Puller Relationship Specialty Start Date End Date Ziggy Harding MD [address] [place] [address] PCP - General FAMILY PRACTICE 09/21/18 11/10/19 documented as of this encounter
--- OUTSIDE RECORDS SUMMARY | 2024-10-24 12:09 | XMS_ITS | Encounter Summary ---
Author Organization [facility] Address [facility]. [place], [place] [address] [place] [address] Care Team Providers Care Link Trainer Mechanic Name Role Phone Ziggy Harding MD Primary Care Provider Encounter Details Date Type Department Care Team (Late st Contact Info) Description 08/07/2011 Abstract [facility]patient Rehab [address] [place] [address] Brien Dyer, DPM [facility] [place] [address] Social History Tobacco Use Types Packs/Day Years [...] (Late Contact Info) Description 11/02/2024 8:00 AM MIDDLE SCHOOL LIBRARIAN Office Visit [address] [place] [address] Ella Hodge [place] [address] [place] [address] 01/19/2025 11:00 AM CDT Office Visit [facility] Medical [facility] [place] [address] [facility] [address] Stanley Jim MD [address] [place] [address] 06/23/2025 8:20 AM CDT Office Visit [facility] [address] [place] [address] Ella Hodge AVIATION ELECTRONIC WARFARE OPERATOR [address] [place] [address] documented as of this encounter Visit Diagnoses Diagnosis Encounter for other physical therapy documented in this encounter Care Teams Link Trainer Mechanic Relationship Specialty Start Date End Date Ziggy Harding MD [address] [facility] [place] [address] PCP - General FAMILY PRACTICE 09/21/18 11/10/19 documented as of this encounter
--- OUTSIDE RECORDS SUMMARY | 2024-10-24 12:09 | XMS_ITS | Encounter Summary ---
Author Organization [facility] Address [address] [place] [address]. [place], [place] [address] [place] [address] Care Team Providers Care Chipping Machine Operator Name Role Phone Unavailable Primary Care Provider Unavailabl e Encounter Details Date Type Department Care Team (Late Contact Info) Description 11/07/2011 Abstract [facility] Clinics Conversion Md, Generic Conversion, [...] st Contact Info) Description 11/02/2024 8:00 AM DRY TRANSFER MAN Office Visit [facility] [address] [place] [address] Ella Hodge FNP [address] [place] [address] 01/19/2025 11:00 AM CDT Office Visit [facility] [place] [address] [address] Stanley Jim MD [address] [place] [address] 06/23/2025 8:20 AM CDT Office Visit [address] [place] [phone] Ella Hodge, [address] [place] [address] documented as of this encounter Visit Diagnoses Not on filedocumented in this encounter
--- OUTSIDE RECORDS SUMMARY | 2024-10-24 12:09 | XMS_ITS | Encounter Summary ---
Author Organization [facility] Address Critical access hospital6 [facility]. [place], [place] [address] [place] [address] Care Team Providers Care Exercise Manager Name Role Phone Ziggy Harding MD Primary Care Provider [phone] Encounter Details Date Type Department Care Team (Late st Contact Info) Description 07/26/2011 Abstract [facility] Outpatient Rehab [address] [place] [address] Brien Deyr, DPM [facility] [place] [address] Social History Tobacco Use Types Packs/Day Years [...] (Late Contact Info) Description 11/02/2024 8:00 AM LINE THERAPIST Office Visit [address] [place] [phone] Ella Hodge [place] [address] [place] [address] 01/19/2025 11:00 AM CDT Office Visit [facility] Medical [facility] [place] [address] [facility] [place] [address] Stanley Jim MD [address] [place] [address] 06/23/2025 8:20 AM CDT Office Visit [facility] [address] [place] [address] Ella Hodge WATER VALVE REPAIRER [address] [place] [address] documented as of this encounter Visit Diagnoses Diagnosis Encounter for other physical therapy documented in this encounter Care Teams Exercise Manager Relationship Specialty Start Date End Date Ziggy Harding MD [address] [facility] [place] [address] PCP - General FAMILY PRACTICE 09/21/18 11/10/19 documented as of this encounter
--- OUTSIDE RECORDS SUMMARY | 2024-10-24 12:09 | XMS_ITS | Encounter Summary ---
Author Organization [facility] Address [facility]. [place], [place] [address] [place] [address] Care Team Providers Care Custom Applicator Name Role Phone Ziggy Harding MD Primary Care Provider Demetrio Shore MD Primary Care Pr ovider Unavailable Joon Lewis Unavailable [phone] Callie Guerrero Unavailable George Osorio MD Unavailable Sergey Ramey Unavailable Jony Pruitt DPM Unavailable Gama Graves MD Unavailable [phone] Encounter Details Date Type Department Care Team (Late st Contact Info) Description 07/03/2006 Abstract [facility] [address] [place] [address] Ziggy Harding MD [address] [place] [id number] Social History Tobacco Use Types Packs/Day Years [...] st Contact Info) Description 11/02/2024 8:00 AM CTE TEACHER Office Visit [address] [place] [address] Ella Hodge [facility] 201 [facility] [place] [facility] [place] [address] 01/19/2025 11:00 AM CDT Office Visit [facility] [address] [place] [address] Stanley Jim MD [address] [place] [address] 06/23/2025 8:20 AM CDT Office Visit [address] [place] [address] Ella Hodge [facility] [address] [facility] [place] [address] documented as of this encounter Visit Diagnoses Not on filedocumented in this encounter Care Teams Custom Applicator Relationship Specialty Start Date End Date Ziggy Harding MD [address] [facility] [place] [address] PCP - General FAMILY PRACTICE 09/21/18 11/10/19 Demetrio [place] MD [address] [place] [address] PCP - General FAMILY PRACTICE 11/11/19 03/29/23 Joon [place] PA [address] [facility] [facility] [place] [address] PHYSICIAN WASH BARREL LEADER 05/09/21 Callie Guerrero DO [address] [place] [address] Art Therapy Certified Supervisor OBGYN 06/14/21 [place] [address] [phone] GASTROENTEROLOGY 06/14/21 Sergey Ramey PA [address] [place] [address] [facility] [place] [address] PHYSICIAN WASH BARREL LEADER 06/14/21 Jony Pruitt DPM [address] [place] [address], [address] [place] [address] Referring Physician PODIATRY/SURGERY 06/14/21 [place] [address] [place] [address] ORTHOPAEDIC SURGERY 06/14/21 documented as of this encounter
--- OUTSIDE RECORDS SUMMARY | 2024-10-24 12:09 | XMS_ITS | Encounter Summary ---
Author Organization [facility] Address [facility]. [place], [place] [address] [place] [address] Care Team Providers Care Frame Feeder Name Role Phone Ziggy Harding MD Primary Care Provider Demetrio Shore MD Primary Care Pr ovider Unavailable Joon Lewis Unavailable [phone] Callie Guerrero Unavailable George Osorio MD Unavailable Sergey Ramey Unavailable Jony Pruitt DPM Unavailable Gama Graves MD Unavailable [phone] Encounter Details Date Type Department Care Team (Late st Contact Info) Description 11/07/2011 Abstract [facility] [address] [place] [address] Ziggy Harding MD [address] [place] [id number] Social History Tobacco Use Types Packs/Day Years [...] Contact Info) Description 11/02/2024 8:00 AM CONFERENCE COORDINATOR Office Visit [address] [place] [address] Ella Hodge [facility] 201 [facility] [place] [address] 01/19/2025 11:00 AM CDT Office Visit [facility] Medical [facility] [address] [place] [address] Stanley Jim MD [address] [place] [address] 06/23/2025 8:20 AM CDT Office Visit [address] [place] [address] Ella Hodge [facility] [address] [facility] [place] [address] documented as of this encounter Visit Diagnoses Not on filedocumented in this encounter Care Teams Frame Feeder Relationship Specialty Start Date End Date Ziggy Harding MD [address] [facility] [place] [address] PCP - General FAMILY PRACTICE 09/21/18 11/10/19 Demetrio [place] MD [address] [place] [address] PCP - General FAMILY PRACTICE 11/11/19 03/29/23 Joon [place] PA [address] [place] [address] PHYSICIAN ELECTROMYOGRAPHIC TECHNICIAN 05/09/21 Callie Guerrero DO [address] [place] [address] School Standards Coach OBGYN 06/14/21 [place] [address] [phone] GASTROENTEROLOGY 06/14/21 Sergey Ramey PA [address] [place] [address] [place] [address] PHYSICIAN ELECTROMYOGRAPHIC TECHNICIAN 06/14/21 Jony Prutit DPM [address] [place] [address], [address] [place] [address] Referring Physician PODIATRY/SURGERY 06/14/21 [place] [address] [place] [address] ORTHOPAEDIC SURGERY 06/14/21 documented as of this encounter
--- OUTSIDE RECORDS SUMMARY | 2024-10-24 12:09 | XMS_ITS | Encounter Summary ---
Author Organization [facility] Address [address] [place] [address]. [place], [place] [address] [place] [address] Care Team Providers Care Lap Regulator Name Role Phone Unavailable Primary Care Provider Unavailabl e Encounter Details Date Type Department Care Team (Late Contact Info) Description 02/28/2012 Abstract [facility] Clinics Conversion Md, Generic Conversion, Social [...] st Contact Info) Description 11/02/2024 8:00 AM TOOL ADJUSTER Office Visit [facility] [address] [place] [address] Ella Hodge FNP [address] [place] [address] 01/19/2025 11:00 AM CDT Office Visit [facility] Group [facility] [place] [address] [place] [address] Stanley Jim MD [address] [place] [address] 06/23/2025 8:20 AM CDT Office Visit [address] [place] [phone] Ella Hodge, [address] [place] [address] documented as of this encounter Visit Diagnoses Not on filedocumented in this encounter
--- OUTSIDE RECORDS SUMMARY | 2024-10-24 12:09 | XMS_ITS | Encounter Summary ---
Author Organization [facility] Address [address] [place] [address]. [place], [place] [address] [place] [address] Care Team Providers Care Undercutter Name Role Phone Unavailable Primary Care Provider Unavailabl e Encounter Details Date Type Department Care Team (Late Contact Info) Description 10/25/2011 Abstract [facility] Clinics Conversion Md, Generic Conversion, Social History [...] st Contact Info) Description 11/02/2024 8:00 AM SEAFOOD TECHNOLOGY SPECIALIST Office Visit [facility] [address] [place] [address] Ella Hodge FNP [address] [place] [address] 01/19/2025 11:00 AM CDT Office Visit [facility] Medical Group [facility] [place] [address] [place] [address] Stanley Jim MD [address] [place] [address] 06/23/2025 8:20 AM CDT Office Visit [address] [place] [phone] Ella Hodge, [address] [place] [address] documented as of this encounter Visit Diagnoses Not on filedocumented in this encounter
--- OUTSIDE RECORDS SUMMARY | 2024-10-24 12:09 | XMS_ITS | Encounter Summary ---
Author Organization [facility] Address [address] [place] [address]. [place], [place] [address] [address] Care Team Providers Care Flight Control Tower Operator Name Role Phone Ziggy Harding MD Primary Care Provider [phone] Encounter Details Date Type Department Care Team (Late st Contact Info) Description 02/23/2008 Abstract [facility] CONVERSION [address] [place] [address] Brien Dyer, DPM [facility] [address] [address] Social History Tobacco Use Types Packs/Day Years [...] Contact Info) Description 11/02/2024 8:00 AM MANAGER CASE MANAGEMENT Office Visit [address] [place] [address] Ella Hodge [address] [place] [address] 01/19/2025 11:00 AM CDT Office Visit [facility] [place] [address] [place] [address] Stanley Jim MD [address] [place] [address] 06/23/2025 8:20 AM CDT Office Visit [facility] [address] [place], [place] [id number] Ella Hodge SURGICAL SERVICES ASSISTANT [address] [place] [id number] documented as of this encounter Visit Diagnoses Not on filedocumented in this encounter Care Teams Flight Control Tower Operator Relationship Specialty Start Date End Date Ziggy Harding MD [address] [place] [address] PCP - General FAMILY PRACTICE 09/21/18 11/10/19 documented as of this encounter
--- OUTSIDE RECORDS SUMMARY | 2024-10-24 12:09 | XMS_ITS | Encounter Summary ---
Author Organization [facility] Address [facility]. [place], [place] [address] [place] [address] Care Team Providers Care Bottom Cementer Name Role Phone Ziggy Harding MD Primary Care Provider [phone] Encounter Details Date Type Department Care Team (Late st Contact Info) Description 06/11/2011 Abstract [facility] [address] [place] [address] Brien Dyer, DPM [facility] [place] [address] Social History Tobacco Use Types Packs/Day Years [...] st Contact Info) Description 11/02/2024 8:00 AM CITY CLERK Office Visit [address] [place] [phone] Ella Hodge [address] [place] [address] 01/19/2025 11:00 AM CDT Office Visit [facility] [place] 200 [facility] [place] [address] Stanley Jim MD [address] [place] [address] 06/23/2025 8:20 AM CDT Office Visit [facility] [address] [place] [address] Ella Hodge FNP [address] [place] [address] documented as of this encounter Visit Diagnoses Diagnosis Pain in soft tissues of limb Pain in limb documented in this encounter Care Teams Bottom Cementer Relationship Specialty Start Date End Date Ziggy Harding MD [address] [facility] [place] [address] PCP - General FAMILY PRACTICE 09/21/18 11/10/19 documented as of this encounter
--- OUTSIDE RECORDS SUMMARY | 2024-10-24 12:09 | XMS_ITS | Encounter Summary ---
Author Organization [facility] Address [address] [place] [address]. [place], [place] [address] [place] [address] Care Team Providers Care On Air Host Name Role Phone Unavailable Primary Care Provider Unavailabl e Encounter Details Date Type Department Care Team (Late Contact Info) Description 04/01/2012 Abstract [facility] Conversion Md, Generic Conversion, Social [...] st Contact Info) Description 11/02/2024 8:00 AM INVENTORY CHECKER Office Visit [facility] [address] [place] [address] Ella Hodge FNP [address] [place] [address] 01/19/2025 11:00 AM CDT Office Visit [facility] - [place] [address] [place] [address] Stanley Jim MD [address] [place] [address] 06/23/2025 8:20 AM CDT Office Visit [address] [place] [id number] Ella Hodge, [address] [place] [address] documented as of this encounter Visit Diagnoses Not on filedocumented in this encounter
--- OUTSIDE RECORDS SUMMARY | 2024-10-24 12:09 | XMS_ITS | Encounter Summary ---
Author Organization [facility] Address [facility]. [place], [place] [address] [place] [address] Care Team Providers Care Build Technician Name Role Phone Ziggy Harding MD Primary Care Provider Demetrio Shore MD Primary Care Pr ovider Unavailable Joon Lewis Unavailable [phone] BradfordJeri whartondemarcus CAMPBELL Unavailable [phone] George Osorio MD Unavailable Sergey Ramey Unavailable [phone] Jony Pruitt DPM Unavailable [phone] Gama Graves MD Unavailable [phone] Encounter Details Date Type Department Care Team (Late st Contact Info) Description 05/29/2006 Abstract [facility] [address] [place] [address] Social History Tobacco Use Types Packs/Day Years [...] st Contact Info) Description 11/02/2024 8:00 AM BUG TRIMMER Office Visit [address] [place] [address] Ella Hodge FNP [address] [facility] [place] [address] 01/19/2025 11:00 AM CDT Office Visit [facility] - [address] [place] [address] Stanley Jim MD [address] [place] [address] 06/23/2025 8:20 AM CDT Office Visit [address] [place] [address] Ell[address] Hodge [address] [place] [address] documented as of this encounter Visit Diagnoses Not on filedocumented in this encounter Care Teams Build Technician Relationship Specialty Start Date End Date Ziggy Harding MD [address] [place] [address] [place] [address] PCP - General FAMILY PRACTICE 09/21/18 11/10/19 Demetrio Shore MD [address] [place] [address] [place] [address] PCP - General FAMILY PRACTICE 11/11/19 03/29/23 Joon Lewis PA [address] [place] [address] PHYSICIAN DOPER 05/09/21 Callie Guerrero DO [address] [place] [address] Social Worker Aide OBGYN 06/14/21 [place] [address] [phone] GASTROENTEROLOGY 06/14/21 Sergey Ramey PA [address] [facility] [place] [address] PHYSICIAN DOPER 06/14/21 Jony Pruitt DPM [address] [place] [address], [address] [place] [address] Referring Physician PODIATRY/SURGERY 06/14/21 [place] [address] [place] [address] ORTHOPAEDIC SURGERY 06/14/21 documented as of this encounter
--- OUTSIDE RECORDS SUMMARY | 2024-10-24 12:09 | XMS_ITS | Encounter Summary ---
Author Organization [facility] Address [facility]. [place], [place] [address] [place] [address] Care Team Providers Care Senior Business Development Analyst Name Role Phone Ziggy Harding MD Primary Care Provider Demetrio Shore MD Primary Care Pr ovider Unavailable Joon Lewis Unavailable [phone] Bradforddio Callie DO Unavailable [phone] George Osorio MD Unavailable Sergey Ramey Unavailable [phone] Jony Pruitt DPM Unavailable [phone] Gama Graves MD Unavailable [phone] Encounter Details Date Type Department Care Team (Late st Contact Info) Description 04/19/2006 Abstract [facility] [address] [place] [address] Karissa Duckworth MD Social History Tobacco Use Types Packs/Day [...] Contact Info) Description 11/02/2024 8:00 AM MEDICAL AIDE Office Visit [facility] [address] [facility] [place] [address] Ella Hodge FNP [address] [facility] [place] [address] 01/19/2025 11:00 AM CDT Office Visit [facility] Pul[facility]ology Specialty Clinic - [address] [place] [place] [address] Stanley Jim MD [address] [place] [address] 06/23/2025 8:20 AM CDT Office Visit [facility] [address] [facility] [place] [address] Ella Hodge FNP [address] [place] [address] [place] [address] documented as of this encounter Visit Diagnoses Not on filedocumented in this encounter Care Teams Senior Business Development Analyst Relationship Specialty Start Date End Date Ziggy Harding MD [address] [place] [address] [place] [address] PCP - General FAMILY PRACTICE 09/21/18 11/10/19 Demetrio Shore MD [address] [place] [address] [place] [address] PCP - General FAMILY PRACTICE 11/11/19 03/29/23 Joon Lewis PA [address] [place] [address] PHYSICIAN BATCH BLENDER 05/09/21 Donnell GuerreroeDO [address] [place] [address] Enrichment Specialist OBGYN 06/14/21 [place] [address] [facility] 101 [place] [address] GASTROENTEROLOGY 06/14/21 Sergey Ramey PA [address] [facility] [place] [address] PHYSICIAN BATCH BLENDER 06/14/21 Jony Pruitt DPM [address] [place] [address], [address] [place] [address] Referring Physician PODIATRY/SURGERY 06/14/21 [place] [address] [place] [address] ORTHOPAEDIC SURGERY 06/14/21 documented as of this encounter
--- OUTSIDE RECORDS SUMMARY | 2024-10-24 12:09 | XMS_ITS | Encounter Summary ---
Author Organization [facility] Address [address] [place] [address]. [place], [place] [address] [place] [address] Care Team Providers Care Material Handling Warehouse Supervisor Name Role Phone Unavailable Primary Care Provider Unavailabl e Encounter Details Date Type Department Care Team (Late Contact Info) Description 01/07/2012 Abstract [facility] Conversion Md, Generic Conversion, Social [...] st Contact Info) Description 11/02/2024 8:00 AM NOTCHING MACHINE OPERATOR Office Visit [facility] [address] [place] [address] Ella Hodge FNP [address] [place] [address] 01/19/2025 11:00 AM CDT Office Visit [facility] - [place] [address] [place] [address] Stanley Jim MD [address] [place] [address] 06/23/2025 8:20 AM CDT Office Visit [address] [place] [address] Ella Hodge, [address] [place] [address] documented as of this encounter Visit Diagnoses Not on filedocumented in this encounter
--- OUTSIDE RECORDS SUMMARY | 2024-10-24 12:09 | XMS_ITS | Encounter Summary ---
Author Organization [facility] Address [address] [place] [address]. [place], [place] [address] [place] [address] Care Team Providers Care Hi Teacher Name Role Phone Unavailable Primary Care Provider Unavailabl e Encounter Details Date Type Department Care Team (Late Contact Info) Description 05/18/2012 Abstract [facility] Conversion Ella Hodge, [facility] [address] [place] [address] Social History Tobacco Use Types Packs/Day Years Used Date Smoking Tobacco: Never Assessed Comments Unknown Sex and Gender Information Value Date Recorded Sex Assigned at Not on file Legal Sex Female 5:51 PM CDT Gender Identity Not on file Sexual Orientation Not on file documented as of this encounter Last Filed Vital Signs Vital Sign Reading Time Taken Comments Blood Pressure 130/64 05/18/2012 1:31 PM CDT Pulse 80 05/18/2012 1:31 PM CDT Temperature - - Respiratory Rate - - Oxygen Saturation - - Inhaled Oxygen Concentration - - Weight 62.6 kg (138 lb) 05/18/2012 1:31 PM CDT Height - - Body Mass Index 26.95 12/06/2011 3:39 PM SECOND HAND PAPER MACHINE documented in this encounter Plan of Treatment Upcoming Encounters Date Type Department Care Team (Late st Contact Info) Description 11/02/2024 8:00 AM SECOND HAND PAPER MACHINE Office Visit [facility] [address] [place] [address] Ella Hodge [address] [place] [address] 01/19/2025 11:00 AM CDT Office Visit [facility] Group Pulmonology Specialty Clinic - [address] [place] [address] Stanley Jim MD [address] [place] [address] 06/23/2025 8:20 AM CDT Office Visit [facility] [address] [facility] [place] [address] Ella Hodge [address] [place] [address] documented as of this encounter Visit Diagnoses Not on filedocumented in this encounter
--- OUTSIDE RECORDS SUMMARY | 2024-10-24 12:09 | XMS_ITS | Encounter Summary ---
Author Organization [facility] Address [facility]. [place], [place] [address] [place] [address] Care Team Providers Care Herpetologist Name Role Phone Ziggy Harding MD Primary Care Provider Demetrio Shore MD Primary Care Pr ovider Unavailable Joon Lewis Unavailable [phone] CesarJeriCallie DO Unavailable George Osorio MD Unavailable Sergey Ramey Unavailable Jony Pruitt DPM Unavailable Gama Graves MD Unavailable [phone] Encounter Details Date Type Department Care Team (Late st Contact Info) Description 06/22/2007 Abstract [facility] [address] [place] [address] Giorgio Roth MD [address] [place] [address] Social History Tobacco Use Types Packs/Day [...] Contact Info) Description 11/02/2024 8:00 AM COMPUTER SECURITY COORDINATOR Office Visit [address] [place] [address] Ella Hodge [facility] [address] [facility] [place] [address] 01/19/2025 11:00 AM CDT Office Visit [facility] Medical Group Pulmonology Specialty Clinic - [address] [place] [address] Stanley Jim MD [address] [place] [address] 06/23/2025 8:20 AM CDT Office Visit [address] [place] [address] Ella Hodge [facility] [address] [facility] [place] [address] documented as of this encounter Visit Diagnoses Not on filedocumented in this encounter Care Teams Herpetologist Relationship Specialty Start Date End Date Ziggy Harding MD [address] [facility] [place] [address] PCP - General FAMILY PRACTICE 09/21/18 11/10/19 Demetrio Shore MD [address] [place] [address] PCP - General FAMILY PRACTICE 11/11/19 03/29/23 Joon Lewis PA [address] [place] [address] PHYSICIAN BOMB LOADER 05/09/21 Callie Guerrero DO [address] [place] [address] Food Packer OBGYN 06/14/21 [place] [address] [phone] GASTROENTEROLOGY 06/14/21 Sergey Ramey PA 200 [facility] [place] [address] PHYSICIAN BOMB LOADER 06/14/21 Jony Pruitt DPM [address] [place] [address], [facility] 80 [place] [address] Referring Physician PODIATRY/SURGERY 06/14/21 [place] [address] [place] [address] ORTHOPAEDIC SURGERY 06/14/21 documented as of this encounter
--- OUTSIDE RECORDS SUMMARY | 2024-10-24 12:09 | XMS_ITS | Encounter Summary ---
Author Organization [facility] Address [facility]6 [facility]. [place], [place] [address] [place] [address] Care Team Providers Care Executive Advisor Name Role Phone Ziggy Harding MD Primary Care Provider [phone] Demetrio Shore MD Primary Care Pr ovider Unavailable Joon Lewis Unavailable [phone] Callie Guerrero DO Unavailable [phone] George Osorio MD Unavailable Sergey Ramey Unavailable [phone] Jony Pruitt DPM Unavailable Gama Graves MD Unavailable [phone] Encounter Details Date Type Department Care Team (Late st Contact Info) Description 04/30/2007 Abstract [facility] [address] [place] [address] Carrie Tompkins DO [address] [place] [address] Social History Tobacco Use Types Packs/Day Years [...] Contact Info) Description 11/02/2024 8:00 AM MECHANICAL INSULATOR Office Visit [address] [place] [address] Ella Hodge [facility] 201 [facility] [place] [address] 01/19/2025 11:00 AM CDT Office Visit [facility] [address] [place] [address] Stanley Jim MD [address] [place] [address] 06/23/2025 8:20 AM CDT Office Visit [address] [place] [address] Ella Hodge [address] [place] [address] documented as of this encounter Visit Diagnoses Not on filedocumented in this encounter Care Teams Executive Advisor Relationship Specialty Start Date End Date Ziggy Harding MD 201 [facility] [place] [address] PCP - General FAMILY PRACTICE 09/21/18 11/10/19 Demetrio Shore MD [address] [place] [address] PCP - General FAMILY PRACTICE 11/11/19 03/29/23 Joon Lewis PA [address] [place] [address] PHYSICIAN WAITER/WAITRESS CLUB 05/09/21 Callie Guerrero DO [address] [place] [address] Rigger OBGYN 06/14/21 [place] [address] [phone] GASTROENTEROLOGY 06/14/21 Sergey Ramey PA 200 [facility] [address] PHYSICIAN WAITER/WAITRESS CLUB 06/14/21 Jony Pruitt DPM [address] [place] [address], [address] [place] [address] Referring Physician PODIATRY/SURGERY 06/14/21 [place] [address] [place] [address] ORTHOPAEDIC SURGERY 06/14/21 documented as of this encounter
--- OUTSIDE RECORDS SUMMARY | 2024-10-24 12:10 | XMS_ITS | Encounter Summary ---
Author Organization [facility] Address Replaced by [facility] [place] [facility]. [place], [place] [address] [place] [address] Care Team Providers Care Seedling Puller Name Role Phone Ziggy Harding MD Primary Care Provider Demetrio Shore MD Primary Care Pr ovider Unavailable Joon Lewis Unavailable [phone] Cesar Callie DO Unavailable [phone] George Osorio MD Unavailable Sergey Ramey Unavailable [phone] Jony Pruitt DPM Unavailable [phone] Gama Graves MD Unavailable [phone] Encounter Details Date Type Department Care Team (Late st Contact Info) Description 08/10/2002 Abstract [facility] [address] [place] [id number] Karissa Duckworth MD Social History Tobacco Use [...] st Contact Info) Description 11/02/2024 8:00 AM NETWORK SUPPORT MANAGER Office Visit [address] [place] [address] Ella Hodge FNP [address] [place] [address] 01/19/2025 11:00 AM CDT Office Visit [facility] Medical Group Pulmonology Specialty Clinic - [address] [place] [address] Stanley Jim MD [address] [place] [address] 06/23/2025 8:20 AM CDT Office Visit [address] [place] [address] Ella Hodge FN[address] [place] [address] documented as of this encounter Visit Diagnoses Not on filedocumented in this encounter Care Teams Seedling Puller Relationship Specialty Start Date End Date Ziggy Harding MD [address] [place] [address] [place] [address] PCP - General FAMILY PRACTICE 09/21/18 11/10/19 Demetrio Shore MD [address] [place] [address] [place] [address] PCP - General FAMILY PRACTICE 11/11/19 03/29/23 Joon Lewis PA [address] [place] [address] PHYSICIAN TECHNICAL SUPPORT COORDINATOR 05/09/21 Donnell GuerreroeDO [address] [place] [address] Ball Winder OBGYN 06/14/21 [place] [address] [phone] GASTROENTEROLOGY 06/14/21 Sergey Ramey PA 200 [facility] [place] [address] PHYSICIAN TECHNICAL SUPPORT COORDINATOR 06/14/21 Jony Pruitt DPM [address] [place] [address], [address] [place] [address] Referring Physician PODIATRY/SURGERY 06/14/21 [place] [address] [place] [address] ORTHOPAEDIC SURGERY 06/14/21 documented as of this encounter
--- OUTSIDE RECORDS SUMMARY | 2024-10-24 12:10 | XMS_ITS | Encounter Summary ---
Author Organization [facility] Address [address] [place] [address]. [place], [place] [address] [place] [address] Care Team Providers Care Computer Applications Developer Name Role Phone Ziggy Harding MD Primary Care Provider Encounter Details Date Type Department Care Team (Late st Contact Info) Description 06/15/1997 Abstract [facility] CONVERSION [address] [place] [address] , Karissa Nguyen MD Social History Tobacco Use Types Packs/Day [...] st Contact Info) Description 11/02/2024 8:00 AM ORTHOTIST/PROSTHETIST Office Visit [facility] [address] [place] [address] Ella Hdoge FNP [address] [place] [address] 01/19/2025 11:00 AM CDT Office Visit [facility] Medical Group Pul[facility]ology Specialty [facility] [place] [address] [place] [address] Stanley Jim MD [address] [place] [address] [place] [address] 06/23/2025 8:20 AM CDT Office Visit [facility] [address] [place] [id number] Ella Hodge, [facility] [address] [place] [address] documented as of this encounter Visit Diagnoses Not on filedocumented in this encounter Care Teams Computer Applications Developer Relationship Specialty Start Date End Date Ziggy Harding MD [address] [place] [address] [place] [address] PCP - General FAMILY PRACTICE 09/21/18 11/10/19 documented as of this encounter
--- OUTSIDE RECORDS SUMMARY | 2024-10-24 12:10 | XMS_ITS | Encounter Summary ---
Author Organization [facility] Address On license of [facility]6 [facility]. [place], [place] [address] [place] [address] Care Team Providers Care Arcade Technician Name Role Phone Ziggy Harding MD Primary Care Provider [phone] Demetrio Shore MD Primary Care Pr ovider Unavailable Joon Lewis Unavailable [phone] BradfordJeri whartondre Unavailable George Osorio MD Unavailable Sergey Ramey Unavailable [phone] Jony Pruitt DPM Unavailable Gama Graves MD Unavailable [phone] Encounter Details Date Type Department Care Team (Late st Contact Info) Description 10/27/2000 Abstract [facility] [address] [place] [address] Renu Vigil MD [address] [address] Social History Tobacco Use Types Packs/Day Years [...] st Contact Info) Description 11/02/2024 8:00 AM SCIENCE LIAISON Office Visit [address] [place] [address] Ella Hodge [facility] 201 [facility] [place] [address] 01/19/2025 11:00 AM CDT Office Visit [facility] [address] [place] [address] Stanley Jim MD [address] [place] [address] 06/23/2025 8:20 AM CDT Office Visit [address] [place] [address] Ella Hodge [address] [place] [address] documented as of this encounter Visit Diagnoses Not on filedocumented in this encounter Care Teams Arcade Technician Relationship Specialty Start Date End Date Ziggy Harding MD [address] [facility] [place] [address] PCP - General FAMILY PRACTICE 09/21/18 11/10/19 Demetrio Shore MD [address] [place] [address] PCP - General FAMILY PRACTICE 11/11/19 03/29/23 Joon Lewis PA [address] [place] [address] PHYSICIAN KEG HEADER 05/09/21 Callie Guerrero DO [address] [place] [address] Ship Runner OBGYN 06/14/21 [place] [address] [phone] GASTROENTEROLOGY 06/14/21 Sergey Ramey PA 200 [facility] [address] [place] [id number] PHYSICIAN KEG HEADER 06/14/21 Jony Pruitt DPM [address] [place] [address], [address] [place] [address] Referring Physician PODIATRY/SURGERY 06/14/21 [place] [address] [place] [address] ORTHOPAEDIC SURGERY 06/14/21 documented as of this encounter
--- OUTSIDE RECORDS SUMMARY | 2024-10-24 12:10 | XMS_ITS | Encounter Summary ---
Author Organization [facility] Address [facility]6 [facility] [place], [place] [address] [place] [address] Care Team Providers Care Addiction Specialist Name Role Phone Ziggy Harding MD Primary Care Provider Demetrio Shore MD Primary Care Pr ovider Unavailable Joon Lewis Unavailable [phone] Callie Guerrero Unavailable George Osorio MD Unavailable Sergey Ramey Unavailable Jony Pruitt DPM Unavailable Gama Graves MD Unavailable [phone] Encounter Details Date Type Department Care Team (Late st Contact Info) Description 11/20/2004 Abstract [facility] Diagnostic Imaging [address] [facility] [place] [address] Jony Pratt MD [address] [place] [address] Social History Tobacco Use Types Packs/Day Years [...] st Contact Info) Description 11/02/2024 8:00 AM AIRPORT SECURITY SCREENER Office Visit [address] [place] [address] Ella Hodge [facility] [address] [facility] [place] [address] 01/19/2025 11:00 AM CDT Office Visit [facility] Pul[facility]ology Specialty Clinic - [address] [place] [address] Stanley Jim MD [address] [place] [address] 06/23/2025 8:20 AM CDT Office Visit [address] [place] [address] Ella Hodge [facility] [address] [facility] [place] [address] documented as of this encounter Visit Diagnoses Not on filedocumented in this encounter Care Teams Addiction Specialist Relationship Specialty Start Date End Date Ziggy Harding MD [address] [facility] [place] [address] PCP - General FAMILY PRACTICE 09/21/18 11/10/19 Demetrio Shore MD [address] [place] [address] PCP - General FAMILY PRACTICE 11/11/19 03/29/23 Joon Lewis PA [address] [place] [address] PHYSICIAN GOODWILL REPRESENTATIVE 05/09/21 Callie Guerrero DO [address] [place] [address] Wharf Operator OBGYN 06/14/21 [place] [address] [address] GASTROENTEROLOGY 06/14/21 Sergey Ramey PA [address] [facility] [place] [address] PHYSICIAN GOODWILL REPRESENTATIVE 06/14/21 Jony Pruitt DPM [address] [place] [address], [address] [place] [address] Referring Physician PODIATRY/SURGERY 06/14/21 [place] [address] [place] [address] ORTHOPAEDIC SURGERY 06/14/21 documented as of this encounter
--- OUTSIDE RECORDS SUMMARY | 2024-10-24 12:10 | XMS_ITS | Encounter Summary ---
Author Organization [facility] Address [facility]. [place], [place] [address] [place] [address] Care Team Providers Care Licensed Loan Officer Assistant Name Role Phone Ziggy Harding MD Primary Care Provider Demetrio Shore MD Primary Care Pr ovider Unavailable Joon Lewis Unavailable [phone] Cesar Callie DO Unavailable Goerge Osorio MD Unavailable Sergey Ramey Unavailable [phone] Jony Pruitt DPM Unavailable Gama Graves MD Unavailable [phone] Encounter Details Date Type Department Care Team (Late st Contact Info) Description 07/05/2004 Abstract [facility] Cardiopulmonary Services 200 [facility] [place] [address] Chago Fitzpatrick MD 4600 [facility] [address] [address] Social History Tobacco Use Types Packs/Day Years [...] st Contact Info) Description 11/02/2024 8:00 AM INCINERATOR ATTENDANT Office Visit [address] [place] [address] Ella Hodge [facility] 201 [facility] [place] [address] 01/19/2025 11:00 AM CDT Office Visit [facility] [address] [place] [address] Stanley Jim MD [address] [place] [address] 06/23/2025 8:20 AM CDT Office Visit [address] [place] [address] Ella Hodge [address] [place] [address] documented as of this encounter Visit Diagnoses Not on filedocumented in this encounter Care Teams Licensed Loan Officer Assistant Relationship Specialty Start Date End Date Ziggy Harding MD [address] [facility] [place] [address] PCP - General FAMILY PRACTICE 09/21/18 11/10/19 Demetrio Shore MD [address] [place] [address] PCP - General FAMILY PRACTICE 11/11/19 03/29/23 Joon Lewis PA [address] [place] [address] PHYSICIAN SHADE MAKER 05/09/21 Callie Guerrero DO [address] [place] [address] Cash Processing Specialist OBGYN 06/14/21 [place] [address] [phone] GASTROENTEROLOGY 06/14/21 Sergey Ramey PA [address] [facility] [place] [address] PHYSICIAN SHADE MAKER 06/14/21 Jony Pruitt DPM [address] [place] [address], [address] [place] [address] Referring Physician PODIATRY/SURGERY 06/14/21 [place] [address] [place] [address] ORTHOPAEDIC SURGERY 06/14/21 documented as of this encounter
--- OUTSIDE RECORDS SUMMARY | 2024-10-24 12:10 | XMS_ITS | Encounter Summary ---
Author Organization [facility] Address [facility]6 [facility]. [place], [place] [address] [place] [address] Care Team Providers Care Cash Teller Name Role Phone Ziggy Harding MD Primary Care Provider [phone] Demetrio Shore MD Primary Care Pr ovider Unavailable Joon Lewis Unavailable [phone] Callie Guerrero Unavailable [phone] George Osorio MD Unavailable Sergey Ramey Unavailable Jony Pruitt DPM Unavailable Gama Graves MD Unavailable Encounter Details Date Type Department Care Team (Late st Contact Info) Description 10/10/2004 Abstract [facility] Mammography [address] [place] [address] Ziggy Harding MD [address] [place] [id number] Social History Tobacco Use Types Packs/Day Years [...] st Contact Info) Description 11/02/2024 8:00 AM FIREARMS SALES ASSOCIATE Office Visit [address] [place] [address] Ella Hodge FNP 201 [facility] [place] [address] 01/19/2025 11:00 AM CDT Office Visit [facility] Pulmonology Specialty Clinic [facility] 200 [facility] [place] [address] Stanley Jim MD [address] [place] [address] 06/23/2025 8:20 AM CDT Office Visit [address] [place] [address] Ella Hdoge FNP [address] [facility] [place] [address] documented as of this encounter Visit Diagnoses Not on filedocumented in this encounter Care Teams Cash Teller Relationship Specialty Start Date End Date Ziggy Harding MD [address] [facility] [place] [address] PCP - General FAMILY PRACTICE 09/21/18 11/10/19 Demetrio Shore MD [address] [place] [address] PCP - General FAMILY PRACTICE 11/11/19 03/29/23 Joon Lewis PA [address] [place] [address] PHYSICIAN HAND COKE DRAWER 05/09/21 Callie Guerrero DO [address] [place] [address] Facilities Technician OBGYN 06/14/21 [place] [address] [phone] GASTROENTEROLOGY 06/14/21 Sergey Ramey PA 200 [facility] CARE [place] [id number] PHYSICIAN HAND COKE DRAWER 06/14/21 Jony Pruitt DPM [address] [place] [address], [address] [place] [address] Referring Physician PODIATRY/SURGERY 06/14/21 [place] [address] [place] [address] ORTHOPAEDIC SURGERY 06/14/21 documented as of this encounter
--- OUTSIDE RECORDS SUMMARY | 2024-10-24 12:10 | XMS_ITS | Encounter Summary ---
Author Organization [facility] Address [address] [place] [address]. [place], [place] [address] [place] [address] Care Team Providers Care Traveling Repair Accountant Name Role Phone Ziggy Harding MD Primary Care Provider Encounter Details Date Type Department Care Team (Late st Contact Info) Description 11/25/2000 Abstract [facility] CONVERSION [address] [place] [address] , Karissa Nguyen MD Social History Tobacco [...] st Contact Info) Description 11/02/2024 8:00 AM MITER GRINDER OPERATOR Office Visit [facility] [address] [place] [address] Ella Hodge FNP [address] [place] [address] 01/19/2025 11:00 AM CDT Office Visit [facility] Medical Group Pulmonology Specialty Clinic - [place] [address] [place] [address] Stanley Jim MD [address] [place] [address] [place] [address] 06/23/2025 8:20 AM CDT Office Visit [facility] [address] [place] [phone] Ella Hodge, [facility] [address] [place] [address] documented as of this encounter Visit Diagnoses Not on filedocumented in this encounter Care Teams Traveling Repair Accountant Relationship Specialty Start Date End Date Ziggy Harding MD [address] [place] [address] [place] [address] PCP - General FAMILY PRACTICE 09/21/18 11/10/19 documented as of this encounter
--- OUTSIDE RECORDS SUMMARY | 2024-10-24 12:10 | XMS_ITS | Encounter Summary ---
Author Organization [facility] Address [address] [place] [address]. [place], [place] [address] [place] [address] Care Team Providers Care Supply Chain Analyst Name Role Phone Ziggy Harding MD Primary Care Provider Encounter Details Date Type Department Care Team (Late st Contact Info) Description 01/23/1995 Abstract [facility] CONVERSION [address] [address] [address] , Karissa Nguyen MD Social History Tobacco [...] st Contact Info) Description 11/02/2024 8:00 AM URBAN PLANNER Office Visit [facility] [address] [place] [address] Ella Hodge FNP [address] [place] [address] 01/19/2025 11:00 AM CDT Office Visit [facility] Medical Group Pulmonology Specialty Clinic - [place] [address] [place] [address] Stanley Jim MD [address] [place] [address] [place] [address] 06/23/2025 8:20 AM CDT Office Visit [facility] [address] [place] [id number] Ella Hodge, [facility] [address] [place] [address] documented as of this encounter Visit Diagnoses Not on filedocumented in this encounter Care Teams Supply Chain Analyst Relationship Specialty Start Date End Date Ziggy Harding MD [address] [place] [address] [place] [address] PCP - General FAMILY PRACTICE 09/21/18 11/10/19 documented as of this encounter
--- OUTSIDE RECORDS SUMMARY | 2024-10-24 12:10 | XMS_ITS | Encounter Summary ---
Author Organization [facility] Address [facility]6 [facility]. [place], [place] [address] [place] [address] Care Team Providers Care Oven Tender Name Role Phone Ziggy Harding MD Primary Care Provider [phone] Demetrio Shore MD Primary Care Pr ovider Unavailable Joon Lewis Unavailable [phone] Callie Guerrero DO Unavailable [phone] George Osorio MD Unavailable Sergey Ramey Unavailable Jony Pruitt DPM Unavailable Gama Graves MD Unavailable [phone] Encounter Details Date Type Department Care Team (Late st Contact Info) Description 03/21/2006 Abstract [facility] Diagnostic Imaging [address] [place] [address] Fanny Gutierrez DO [address] Still [address] [place] [address] Social History Tobacco Use Types Packs/Day Years [...] st Contact Info) Description 11/02/2024 8:00 AM MAINTENANCE MILLWRIGHT Office Visit [address] [place] [address] Ella Hodge [facility] [address] [place] [address] 01/19/2025 11:00 AM CDT Office Visit [facility] Medical Group Pulmonology Specialty Clinic - [address] [place] [address] Stanley Jim MD [address] [place] [address] 06/23/2025 8:20 AM CDT Office Visit [address] [place] [address] Ella Hodge [facility] [address] [place] [address] documented as of this encounter Visit Diagnoses Not on filedocumented in this encounter Care Teams Oven Tender Relationship Specialty Start Date End Date Ziggy Harding MD [address] [place] [address] PCP - General FAMILY PRACTICE 09/21/18 11/10/19 Demetrio Shore MD [address] [place] [address] PCP - General FAMILY PRACTICE 11/11/19 03/29/23 Joon Lewis PA [address] [place] [address] PHYSICIAN PLAY THERAPIST 05/09/21 Callie Guerrero DO [address] [place] [address] Signal Technician OBGYN 06/14/21 [place] [address] [address] GASTROENTEROLOGY 06/14/21 Sergey Ramey PA 200 [facility] CARE [place] [id number] PHYSICIAN PLAY THERAPIST 06/14/21 Jony Pruitt DPM [address] [place] [address], [facility] [address] [place] [address] Referring Physician PODIATRY/SURGERY 06/14/21 [place] [address] [place] [address] ORTHOPAEDIC SURGERY 06/14/21 documented as of this encounter
--- OUTSIDE RECORDS SUMMARY | 2024-10-24 12:10 | XMS_ITS | Encounter Summary ---
Author Organization [facility] Address [facility]6 [facility]. [place], [place] [address] [place] [address] Care Team Providers Care Sex Therapist Name Role Phone Ziggy Harding MD Primary Care Provider Demetrio Shore MD Primary Care Pr ovider Unavailable Joon Lewis Unavailable [phone] Cesar Callie DO Unavailable [phone] George Osorio MD Unavailable Sergey Ramey Unavailable [phone] Jony Pruitt DPM Unavailable [phone] Gama Graves MD Unavailable [phone] Encounter Details Date Type Department Care Team (Late st Contact Info) Description 08/20/2003 Abstract [facility] [address] [place] [id number] Karissa Duckworth MD Social History Tobacco Use [...] st Contact Info) Description 11/02/2024 8:00 AM ULTRASOUND SPECIALIST Office Visit [address] [place] [address] Ella Hodge FNP [address] [facility] [place] [address] 01/19/2025 11:00 AM CDT Office Visit [facility] Medical Group Pulmonology Specialty Clinic - [address] [place] [address] Stanley Jim MD [address] [place] [address] 06/23/2025 8:20 AM CDT Office Visit [address] [place] [address] Ella Hodge [address] [place] [address] documented as of this encounter Visit Diagnoses Not on filedocumented in this encounter Care Teams Sex Therapist Relationship Specialty Start Date End Date Ziggy Harding MD [address] [place] [address] [place] [address] PCP - General FAMILY PRACTICE 09/21/18 11/10/19 Demetrio Shore MD [address] [place] [address] [place] [address] PCP - General FAMILY PRACTICE 11/11/19 03/29/23 Joon Lewis PA [address] [place] [address] PHYSICIAN CYTOTECHNOLOGIST 05/09/21 Donnell GuerreroeDO [address] [place] [address] Button Buttonhole Marker OBGYN 06/14/21 [place] [address] [phone] GASTROENTEROLOGY 06/14/21 Sergey Ramey PA 200 [facility] [place] [address] PHYSICIAN CYTOTECHNOLOGIST 06/14/21 Jony Pruitt DPM [address] [place] [address], [address] [place] [address] Referring Physician PODIATRY/SURGERY 06/14/21 [place] [address] [place] [address] ORTHOPAEDIC SURGERY 06/14/21 documented as of this encounter
--- OUTSIDE RECORDS SUMMARY | 2024-10-24 12:10 | XMS_ITS | Encounter Summary ---
Author Organization [facility] Address [address] [place] [address]. [place], [place] [address] [place] [address] Care Team Providers Care Oncology Account Specialist Name Role Phone Ziggy Harding MD Primary Care Provider Encounter Details Date Type Department Care Team (Late st Contact Info) Description 03/11/2001 Abstract [facility] CONVERSION [address] [place] [address] , Karissa Nguyen MD Social History Tobacco [...] st Contact Info) Description 11/02/2024 8:00 AM RADIOLOGY ASSISTANT Office Visit [facility] [address] [place] [address] Ella Hodge FNP [address] [place] [address] 01/19/2025 11:00 AM CDT Office Visit [facility] Pulmonology Specialty Clinic - [place] [address] [place] [address] Stanley Jmi MD [address] [place] [address] [place] [address] 06/23/2025 8:20 AM CDT Office Visit [facility] [address] [place] [id number] Ella Hodge, [facility] [address] [place] [address] documented as of this encounter Visit Diagnoses Not on filedocumented in this encounter Care Teams Oncology Account Specialist Relationship Specialty Start Date End Date Ziggy Harding MD [address] [place] [address] [place] [address] PCP - General FAMILY PRACTICE 09/21/18 11/10/19 documented as of this encounter
--- OUTSIDE RECORDS SUMMARY | 2024-10-24 12:10 | XMS_ITS | Encounter Summary ---
Author Organization [facility] Address [facility]6 [facility]. [place], [place] [address] [place] [address] Care Team Providers Care Cissp Name Role Phone Ziggy Harding MD Primary Care Provider Demetrio Shore MD Primary Care Pr ovider Unavailable Joon Lewis Unavailable [phone] Cesar Callie DO Unavailable [phone] George Osorio MD Unavailable Sergey Ramey Unavailable [phone] Jony Pruitt DPM Unavailable [phone] Gama Graves MD Unavailable [phone] Encounter Details Date Type Department Care Team (Late st Contact Info) Description 01/08/2006 Abstract [facility] [address] [place] [id number] Karissa Duckworth MD Social History Tobacco Use [...] st Contact Info) Description 11/02/2024 8:00 AM ENGINEERING PRODUCTION LIAISON Office Visit [address] [place] [place] [address] Ella Hodge FNP [address] [facility] [place] [address] 01/19/2025 11:00 AM CDT Office Visit [facility] Pulmonology Specialty Clinic - [address] [place] [address] Stanley Jim MD [address] [place] [address] 06/23/2025 8:20 AM CDT Office Visit [address] [place] [address] Ella Hodge [address] [place] [address] documented as of this encounter Visit Diagnoses Not on filedocumented in this encounter Care Teams Cissp Relationship Specialty Start Date End Date Ziggy Harding MD [address] [place] [address] [place] [address] PCP - General FAMILY PRACTICE 09/21/18 11/10/19 Demetrio Shore MD [address] [place] [address] [place] [address] PCP - General FAMILY PRACTICE 11/11/19 03/29/23 Joon Lewis PA [address] [place] [address] PHYSICIAN ELECTRICAL APPRENTICE 05/09/21 Donnell GuerreroeDO [address] [place] [address] Health Program Director OBGYN 06/14/21 [place] [address] [phone] GASTROENTEROLOGY 06/14/21 Sergey Ramey PA 200 [facility] [place] [address] PHYSICIAN ELECTRICAL APPRENTICE 06/14/21 Jony Pruitt DPM [address] [place] [address], [address] [place] [address] Referring Physician PODIATRY/SURGERY 06/14/21 [place] [address] [place] [address] ORTHOPAEDIC SURGERY 06/14/21 documented as of this encounter
--- OUTSIDE RECORDS SUMMARY | 2024-10-24 12:10 | XMS_ITS | Encounter Summary ---
Author Organization [facility] Address [facility], later [facility]. [place], [place] [address] [place] [address] Care Team Providers Care Cad Application Support Specialist Name Role Phone Ziggy Harding MD Primary Care Provider [phone] Demetrio Shore MD Primary Care Pr ovider Unavailable Joon Lewis Unavailable [phone] Callie Guerrero Unavailable [phone] George Osorio MD Unavailable Sergey Ramey Unavailable [phone] Jony Pruitt DPM Unavailable Gama Graves MD Unavailable [phone] Encounter Details Date Type Department Care Team (Late st Contact Info) Description 02/16/2004 Abstract [facility] [address] [place] [address] Ziggy Harding MD [address] [place] [id number] Social History Tobacco Use Types Packs/Day Years [...] st Contact Info) Description 11/02/2024 8:00 AM SLICER MACHINE OPERATOR Office Visit [address] [place] [address] Ella Hodge [facility] [address] [facility] [place] [address] 01/19/2025 11:00 AM CDT Office Visit [facility] [address] [place] [address] Stanley Jim MD [address] [place] [address] 06/23/2025 8:20 AM CDT Office Visit [address] [place] [address] Ella Hodge [facility] [address] [facility] [place] [address] documented as of this encounter Visit Diagnoses Not on filedocumented in this encounter Care Teams Cad Application Support Specialist Relationship Specialty Start Date End Date Ziggy Harding MD [address] [facility] [place] [address] PCP - General FAMILY PRACTICE 09/21/18 11/10/19 Demetrio Shore MD [address] [place] [address] PCP - General FAMILY PRACTICE 11/11/19 03/29/23 Joon Lewis PA [address] [place] [address] PHYSICIAN APPRAISAL MANAGER 05/09/21 Callie Guerrero DO [address] [place] [address] Zipper Setter OBGYN 06/14/21 [place] [address] [phone] GASTROENTEROLOGY 06/14/21 Sergey Ramey PA [address] [place] [address] [place] [address] PHYSICIAN APPRAISAL MANAGER 06/14/21 Jony Pruitt DPM [address] [place] [address], [address] [place] [address] Referring Physician PODIATRY/SURGERY 06/14/21 [place] [address] [place] [address] ORTHOPAEDIC SURGERY 06/14/21 documented as of this encounter
--- OUTSIDE RECORDS SUMMARY | 2024-10-24 12:10 | XMS_ITS | Encounter Summary ---
Author Organization [facility] Address [facility]. [place], [place] [address] [place] [address] Care Team Providers Care Lumber Planer Name Role Phone Ziggy Harding MD Primary Care Provider [phone] Demetrio Shore MD Primary Care Pr ovider Unavailable Joon Lewis Unavailable [phone] CesarJeriCallie DO Unavailable George Osorio MD Unavailable Sergey Ramey Unavailable Jony Pruitt DPM Unavailable [phone] Gama Graves MD Unavailable [phone] Encounter Details Date Type Department Care Team (Late st Contact Info) Description 12/29/2002 Abstract [facility] Emergency Services [address] [place] [address] Lester Pacheco MD [address] [place] [address] Social History Tobacco Use Types Packs/Day Years [...] st Contact Info) Description 11/02/2024 8:00 AM STAKER SURVEYING Office Visit [address] [place] [address] Ella Hodge [facility] [address] [facility] [place] [address] 01/19/2025 11:00 AM CDT Office Visit [facility] Medical Group Pul[facility]ty [facility] - [address] [place] [address] Stanley Jim MD [address] [place] [address] 06/23/2025 8:20 AM CDT Office Visit [address] [place] [address] Ella Hodge [facility] [address] [facility] [place] [address] documented as of this encounter Visit Diagnoses Not on filedocumented in this encounter Care Teams Lumber Planer Relationship Specialty Start Date End Date Ziggy Harding MD [address] [facility] [place] [address] PCP - General FAMILY PRACTICE 09/21/18 11/10/19 Demetrio Shore MD [address] [place] [address] PCP - General FAMILY PRACTICE 11/11/19 03/29/23 Joon Lewis PA [address] [place] [address] PHYSICIAN SILICA DRY PRESS HELPER 05/09/21 Callie Guerrero DO [address] [place] [address] Mileage Clerk OBGYN 06/14/21 [place] [address] [address] GASTROENTEROLOGY 06/14/21 Sergey Ramey PA [address] [facility] [address] [place] [id number] PHYSICIAN SILICA DRY PRESS HELPER 06/14/21 Jony Pruitt DPM [address] [place] [address], [address] [place] [address] Referring Physician PODIATRY/SURGERY 06/14/21 [place] [address] [place] [address] ORTHOPAEDIC SURGERY 06/14/21 documented as of this encounter
--- OUTSIDE RECORDS SUMMARY | 2024-10-24 12:10 | XMS_ITS | Encounter Summary ---
Author Organization [facility] Address [address] [place] [address]. [place], [place] [address] [place] [address] Care Team Providers Care Training Instructor Name Role Phone Ziggy Harding MD Primary Care Provider [phone] Encounter Details Date Type Department Care Team (Late st Contact Info) Description 12/05/1994 Abstract [facility] CONVERSION [address] [address] , Karissa Nguyen MD Social History Tobacco [...] Contact Info) Description 11/02/2024 8:00 AM REGISTERED DIETETIC TECHNICIAN Office Visit [facility] [address] [place] [address] Ella Hodge FNP [address] [place] [address] 01/19/2025 11:00 AM CDT Office Visit [facility] Medical Group Pul[facility]ty [facility] - [place] [address] [place] [address] Stanley Jim MD [address] [place] [address] [place] [address] 06/23/2025 8:20 AM CDT Office Visit [facility] [address] [place] [id number] Ella Hodge, [facility] [address] [place] [address] documented as of this encounter Visit Diagnoses Not on filedocumented in this encounter Care Teams Training Instructor Relationship Specialty Start Date End Date Ziggy Harding MD [address] [place] [address] [place] [address] PCP - General FAMILY PRACTICE 09/21/18 11/10/19 documented as of this encounter
--- OUTSIDE RECORDS SUMMARY | 2024-10-24 12:10 | XMS_ITS | Encounter Summary ---
Author Organization [facility] Address [facility]. [place], [place] [address] [place] [address] Care Team Providers Care Reading Coach Name Role Phone Ziggy Harding MD Primary Care Provider [phone] Demetrio Shore MD Primary Care Pr ovider Unavailable Joon Lewis Unavailable [phone] Cesar Callie DO Unavailable [phone] George Osorio MD Unavailable Sergey Ramey Unavailable [phone] Jony Pruitt DPM Unavailable [phone] Gama Graves MD Unavailable [phone] Encounter Details Date Type Department Care Team (Late st Contact Info) Description 01/04/2006 Abstract [facility] [address] [place] [id number] Karissa Duckworth MD Social History Tobacco Use [...] Contact Info) Description 11/02/2024 8:00 AM SCAFFOLD ERECTOR Office Visit [address] [place] [address] Ella Hodge FNP [address] [facility] [place] [address] 01/19/2025 11:00 AM CDT Office Visit [facility] Medical Group Pulmonology Specialty Clinic - [address] [place] [address] Stanley Jim MD [address] [place] [address] 06/23/2025 8:20 AM CDT Office Visit [address] [place] [address] Ella Hodge [address] [place] [address] documented as of this encounter Visit Diagnoses Not on filedocumented in this encounter Care Teams Reading Coach Relationship Specialty Start Date End Date Ziggy Harding MD [address] [place] [address] [place] [address] PCP - General FAMILY PRACTICE 09/21/18 11/10/19 Demetrio Shore MD [address] [place] [address] [place] [address] PCP - General FAMILY PRACTICE 11/11/19 03/29/23 Joon Lewis PA [address] [place] [address] PHYSICIAN PHARMACOVIGILANCE SPECIALIST 05/09/21 Donnell GuerreroeDO [address] [place] [address] Civil Designer OBGYN 06/14/21 [place] [address] [phone] GASTROENTEROLOGY 06/14/21 Sergey Ramey PA [address] [facility] [address] PHYSICIAN PHARMACOVIGILANCE SPECIALIST 06/14/21 Jony Pruitt DPM [address] [place] [address], [address] [place] [address] Referring Physician PODIATRY/SURGERY 06/14/21 [place] [address] [place] [address] ORTHOPAEDIC SURGERY 06/14/21 documented as of this encounter
--- OUTSIDE RECORDS SUMMARY | 2024-10-24 12:10 | XMS_ITS | Encounter Summary ---
Author Organization [facility] Address [facility]. [place], [place] [address] [place] [address] Care Team Providers Care Baseball Scout Name Role Phone Ziggy Harding MD Primary Care Provider Deemtrio Shore MD Primary Care Pr ovider Unavailable Joon Lewis Unavailable [phone] Cesar Callie DO Unavailable George Osorio MD Unavailable Sergey Ramey Unavailable Jony Pruitt DPM Unavailable Gama [place] MD Unavailable Encounter Details Date Type Department Care Team (Late st Contact Info) Description 06/25/2004 Abstract [facility] Cardiopulmonary Services [address] [place] [address] Chago Fitzpatrick MD 4600 [facility] [address] [address] Social History Tobacco Use Types Packs/Day Years [...] st Contact Info) Description 11/02/2024 8:00 AM SOIL SAMPLER Office Visit [address] [place] [address] Ella Hodge [facility] [address] [facility] [place] [address] 01/19/2025 11:00 AM CDT Office Visit [facility] Medical Group [facility] Clinic [address] [place] [address] Stanley Jim MD [address] [place] [address] 06/23/2025 8:20 AM CDT Office Visit [address] [place] [address] Ella Hodge [address] [place] [address] documented as of this encounter Visit Diagnoses Not on filedocumented in this encounter Care Teams Baseball Scout Relationship Specialty Start Date End Date Ziggy Harding MD [address] [facility] [place] [address] PCP - General FAMILY PRACTICE 09/21/18 11/10/19 Demetrio Shore MD [address] [place] [address] PCP - General FAMILY PRACTICE 11/11/19 03/29/23 Joon Lewis PA [address] [place] [address] PHYSICIAN SHELLFISH SORTER 05/09/21 Callie Guerrero DO [address] [place] [address] Airfield Defence Guard OBGYN 06/14/21 [place] [address] [phone] GASTROENTEROLOGY 06/14/21 Sergey Ramey PA 200 [facility] [place] [address] PHYSICIAN SHELLFISH SORTER 06/14/21 Jony Pruitt DPM [address] [place] [address], [address] [place] [address] Referring Physician PODIATRY/SURGERY 06/14/21 [place] [address] [place] [address] ORTHOPAEDIC SURGERY 06/14/21 documented as of this encounter
--- OUTSIDE RECORDS SUMMARY | 2024-10-24 12:10 | XMS_ITS | Encounter Summary ---
Author Organization [facility] Address [address] [place] [address]. [place], [place] [address] [place] [address] Care Team Providers Care Printing Machine Mechanic Name Role Phone Ziggy Harding MD Primary Care Provider Encounter Details Date Type Department Care Team (Late st Contact Info) Description 01/06/1995 Abstract [facility] CONVERSION [address] [address] [address] , Karissa Nguyen MD Social History Tobacco [...] st Contact Info) Description 11/02/2024 8:00 AM BAND SAW FILER Office Visit [facility] [address] [place] [address] Ella Hodge FNP [address] [place] [address] 01/19/2025 11:00 AM CDT Office Visit [facility] Medical Group Pulmonology Specialty Clinic - [place] [address] [place] [address] Stanley Jim MD [address] [place] [address] [place] [address] 06/23/2025 8:20 AM CDT Office Visit [facility] [address] [place] [id number] Ella Hodge, [facility] [address] [place] [address] documented as of this encounter Visit Diagnoses Not on filedocumented in this encounter Care Teams Printing Machine Mechanic Relationship Specialty Start Date End Date Ziggy Harding MD [address] [place] [address] [place] [address] PCP - General FAMILY PRACTICE 09/21/18 11/10/19 documented as of this encounter
--- OUTSIDE RECORDS SUMMARY | 2024-10-24 12:10 | XMS_ITS | Encounter Summary ---
Author Organization [facility] Address [address] [place] [address]. [place], [place] [address] [place] [address] Care Team Providers Care Commercial Green Retrofit Architect Name Role Phone Ziggy Harding MD Primary Care Provider Encounter Details Date Type Department Care Team (Late st Contact Info) Description 12/19/1994 Abstract [facility] CONVERSION [address] [place] [address] , Karissa Nguyen MD Social History Tobacco [...] st Contact Info) Description 11/02/2024 8:00 AM GRAVITY PROSPECTING SUPERVISOR Office Visit [facility] [address] [place] [address] Ella Hodge FNP [address] [place] [address] 01/19/2025 11:00 AM CDT Office Visit [facility] Medical Group Pulmonology Specialty Clinic - [place] [address] [place] [address] Stanley Jim MD [address] [place] [address] [place] [address] 06/23/2025 8:20 AM CDT Office Visit [facility] [address] [place] [id number] Ella Hodge, [facility] [address] [place] [address] documented as of this encounter Visit Diagnoses Not on filedocumented in this encounter Care Teams Commercial Green Retrofit Architect Relationship Specialty Start Date End Date Ziggy Harding MD [address] [place] [address] [place] [address] PCP - General FAMILY PRACTICE 09/21/18 11/10/19 documented as of this encounter
--- OUTSIDE RECORDS SUMMARY | 2024-10-24 12:10 | XMS_ITS | Encounter Summary ---
Author Organization [facility] Address Replaced by [facility]. [place], [place] [address] [place] [address] Care Team Providers Care Automotive Sales Representative Name Role Phone Ziggy Harding MD Primary Care Provider Demetrio Shore MD Primary Care Pr ovider Unavailable Joon Lewis Unavailable [phone] Callie Guerrero Unavailable George Osorio MD Unavailable Sergey Ramey Unavailable Jony Pruitt DPM Unavailable Gama Graves MD Unavailable [phone] Encounter Details Date Type Department Care Team (Late st Contact Info) Description 06/02/2004 Abstract [facility] [address] [place] [address] Ziggy Harding MD [address] [place] [address] Social History Tobacco Use Types Packs/Day [...] st Contact Info) Description 11/02/2024 8:00 AM HUMAN SERVICE TECHNICIAN Office Visit [address] [place] [address] Ella Hodge [facility] 201 [facility] [place] [address] 01/19/2025 11:00 AM CDT Office Visit [facility] Medical Group [facility] [address] [place] [address] Stanley Jim MD [address] [place] [address] 06/23/2025 8:20 AM CDT Office Visit [address] [place] [address] Ella Hodge [facility] [address] [facility] [place] [address] documented as of this encounter Visit Diagnoses Not on filedocumented in this encounter Care Teams Automotive Sales Representative Relationship Specialty Start Date End Date Ziggy Harding MD [address] [facility] [place] [address] PCP - General FAMILY PRACTICE 09/21/18 11/10/19 Demetrio Shore MD [address] [place] [address] PCP - General FAMILY PRACTICE 11/11/19 03/29/23 Joon Lewis PA [address] [place] [address] PHYSICIAN ALL TERRAIN VEHICLE RACER 05/09/21 Callie Guerrero DO [address] [place] [address] Veterinarian Epidemiologist OBGYN 06/14/21 [place] [address] [phone] GASTROENTEROLOGY 06/14/21 Sergey Ramey PA [address] [place] [address] [place] [address] PHYSICIAN ALL TERRAIN VEHICLE RACER 06/14/21 Jony Pruitt DPM [address] [place] [address], [address] [place] [address] Referring Physician PODIATRY/SURGERY 06/14/21 [place] [address] [place] [address] ORTHOPAEDIC SURGERY 06/14/21 documented as of this encounter
--- OUTSIDE RECORDS SUMMARY | 2024-10-24 12:10 | XMS_ITS | Encounter Summary ---
Author Organization [facility] Address [address] [place] [address]. [place], [place] [address] [place] [address] Care Team Providers Care Mail Caller Name Role Phone Ziggy Harding MD Primary Care Provider Encounter Details Date Type Department Care Team (Late st Contact Info) Description 12/09/1994 Abstract [facility] CONVERSION [address] [place] [address] , Karissa Nguyen MD Social History Tobacco [...] st Contact Info) Description 11/02/2024 8:00 AM REFRIGERATOR CRATER Office Visit [facility] [address] [place] [address] Ella Hodge FNP [address] [place] [address] 01/19/2025 11:00 AM CDT Office Visit [facility] Medical Group Pul[facility]ology Specialty [facility] - [place] [address] [place] [address] Stanley Jim MD [address] [place] [address] [place] [address] 06/23/2025 8:20 AM CDT Office Visit [facility] [address] [place] [id number] Ella Hodge, [facility] [address] [place] [address] documented as of this encounter Visit Diagnoses Not on filedocumented in this encounter Care Teams Mail Caller Relationship Specialty Start Date End Date Ziggy Harding MD [address] [place] [address] [place] [address] PCP - General FAMILY PRACTICE 09/21/18 11/10/19 documented as of this encounter
--- OUTSIDE RECORDS SUMMARY | 2024-10-24 12:56 | XMS_ITS | Clinical Summary ---
Author Organization [facility] Address [address] [place] [address] Phone Care Team Providers Care Carbonating Stone Cleaner Name Role Phone Ziggy Harding MD Primary Care Provider [phone] Allergies No known active allergies Medications Medication Sig Dispensed Refills Start Date End Date Status montelukast (SINGULAIR) 10 mg Oral tablet Take 10 mg by mouth daily at bedtime. Active acetaminophen-caffei ne-butalbital (FIORICET) 325-40-50 mg Oral tablet Take 1 Tab by mouth every 4 hours as needed. Active Cetirizine (ZYRTEC) 10 mg Oral Cap Take by mouth. Active pravastatin (PRAVACHOL) 20 mg Oral tablet Take 20 mg by mouth Daily LATE. Active FLAXSEED OIL (OMEGA 3 ORAL) Take by mouth. Active NAPROXEN SODIUM (ALEVE ORAL) Take by mouth 1 time daily as needed. Active PROPYLENE GLYCOL/PEG 400 (SYSTANE OP) by Ophthalmic route. Active ERGOCALCIFEROL, VITAMIN D2, (VITAMIN D ORAL) Take by mouth. Active Active Problems Patient Care Coordination No te Formatting of this note migh t be different from the original. Primary Care: Ziggy Harding MD Referring Provider: Ziggy Harding MD [address] [place] [address] [place] [address] Other: Problem Noted Date Diagnosed Date Encounter for screening mammogram for high-risk patient 05/15/2016 Hypercholesterolemia 04/02/2013 Osteopenia 07/21/2009 ADH 07/18/2009 Overview (07/23/2011): [facility]ATE patient February 2006 biopsy LEFT breast, completed 5 years 201003/08/06 EVISTA chemoprevention x 5 years Tiana 5.2% and 18.5% Assessment & Plan (07/23/2011 11:29 AM CDT): ROV 1 year or prn mammo in February Assessment & Plan (07/23/2010 11:32 AM CDT): Mammogram in February Evista 4 1/2 yrs - due to end in February On supplements from chiropractor - had rash - told it was copper leaving body ROV 1 year cystic left breast Assessment & Plan (07/21/2009 2:10 PM CDT): IOV with me (KATE) On HRT prior to bx On Evista 3 1/2 yrs Doing well PLAN: cont Evista ROV 1 year Mammogram in February with DMR Diverticular disease Family History Medical History Relation Name Comments Colon Cancer Brother 1 age 73y Healthy Brother 2 Healthy Daughter Other Father in 50s Other Mother in 90s Breast Cancer Neg Hx Ovarian Cancer Neg Hx Relation Name Status Comments Brother 1 Alive Brother 2 Daughter Alive Father Mother Social History Tobacco Use Types Packs/Day Years Used Date Smoking Tobacco: Never Smokeless Tobacco: Never Alcohol Use Standard Drinks/Week Comments No 0 (1 standard drink = 0.6 oz pur e alcohol) rarely Sex and Gender Information Value Date Recorded Sex Assigned at Not on file Gender Identity Not on file Sexual Orientation Not on file Last Filed Vital Signs Vital Sign Reading Time Taken Comments Blood Pressure 149/80 05/24/2015 8:28 AM CDT Pulse 80 05/24/2015 8:28 AM CDT Temperature 36.7 ??C (98.1 ??F) 07/23/2011 11:19 AM C DT Respiratory Rate 16 07/23/2011 11:19 AM CDT Oxygen Saturation - - Inhaled Oxygen Concentration - - Weight 66.7 kg (147 lb) 05/24/2015 8:28 AM CDT Height 154.9 cm (5' 1 ) 05/24/2015 8:28 AM CDT Body Mass Index 27.78 05/24/2015 8:28 AM CDT Plan of Treatment Health Maintenance Due Date Last Done Comments DTAP/TDAP/TD VACCINES (1 - Tdap) 1962 ZOSTER VACCINE (1 of 2) 1993 OSTEOPOROSIS SCREENING 2008 PNEUMOCOCCAL VACCINE 65+ YEARS (1 of 1 - PCV) 11/08/19 09 RSV VACCINE (60+ or ) (1 - 1-dose 75+ series) 2018 INFLUENZA VACCINE (#1) 2024 Advance Directives For more information, please contact: [phone] Documents on File Type Date Recorded Patient Medical Office Clerk Expl anation Advance Directive POA 04/01/2012 8:04 AM Ad ferro Directive POA Advance Directive Living Will 04/01/2012 Care Teams Carbonating Stone Cleaner Relationship Specialty Start Date End Date Ziggy Harding MD [address] [place] [address] [place] [address] PCP - General 03/17/09
--- OUTSIDE RECORDS SUMMARY | 2024-10-24 12:56 | XMS_ITS | Encounter Summary ---
Author Organization [facility] Address [address] [place] [address] Care Team Providers Care Engine Maintenance Mechanic Name Role Phone Ziggy Harding MD Primary Care Provider [phone] Reason for Visit * Reason Comments High Risk annual ck up Encounter Details Date Type Department Care Team (Late st Contact Info) Description 04/01/2012 9:30 AM CDT Office Visit [facility] [address] [place] [phone] Bindu Aguirre MD [address] [place] [address] Diffuse cystic mastopathy; Atypical ductal hyperplasia of breast; Breast cancer screening, high risk patient Social History Tobacco Use Types Packs/Day Years [...] Sign Reading Time Taken Comments Blood Pressure 146/73 04/01/2012 8:57 AM CDT Pulse 78 04/01/2012 8:57 AM CDT Temperature - - Respiratory Rate - - Oxygen Saturation - - Inhaled Oxygen Concentration - - Weight 62.6 kg (138 lb) 04/01/2012 8:57 AM CDT Height 152.4 cm (5') 04/01/2012 8:57 AM CDT Body Mass Index 26.95 04/01/2012 8:57 AM CDT documented in this encounter Progress Notes * Bindu Aguirre MD - 04/01/2012 9:17 AM CDT Love Catherine is a 66 y.o. female Followup for high risk. History of atypical ductal hyperplasia. Has been on 5 years of raloxifene for prevention, completed in 2010. Has been told that her cholesterol is somewhat high and she needs to change your diet and to exercise. She's also been told that she has vitamin D deficiency but she is unclear as to how much supplementation she should take. Complete 10 point review of systems negative No Known Allergies OB History Grav Para Term Abortions TAB SAB Ect Mult Living 1 1 Obstetric Comments Colonoscopy due (had polyp) BMD: January 2008 osteopenia Age @ onset of menses:11 Age @ first live : 38 Menopause: 48 Patient Active Problem List Diagnoses Code ??? ADH V76.11 ??? Osteopenia 733.90 ??? Diverticular Disease 562.10 Current Outpatient Prescriptions Medication Sig Dispense Refill ??? ERGOCALCIFEROL, VITAMIN D2, (VITAMIN D ORAL) Take 1,000 mg by mouth. ??? kkcyvkgufbgqk-trwgtcqg-rnamksyyli (FIORICET) 325-40-50 mg Oral tablet Take 1 Tab by mouth every4 hours as needed. ??? ipratropium bromide (ATROVENT) 0.03 % Both Nostril [place] Administer 2 Sprays in each nostril 2 times daily. ??? FEXOFENADINE HCL (ARELI PO) Take by mouth. ??? MONTELUKAST SODIUM (SINGULAIR PO) Take by mouth. Past Medical History Diagnosis Date ??? Atypical hyperplasia of breasts ??? Arthritis ??? Diverticular disease h/o Past Surgical History Procedure Date ??? Hx breast biopsy 02/03/2006 left breast excision, ADH History Social History ??? Marital Status: Spouse Name: N/A Number of Children: 1 ??? Years of Education: N/A Occupational History ??? works at [employer] Social History Main Topics ??? Smoking status: Never Smoker ??? Smokeless tobacco: Never Used ??? Alcohol Use: No rarely ??? Drug Use: No ??? Sexually Active: Other Topics Concern ??? Not on file Social History Narrative ??? No narrative on file Family History Problem Relation Age of Onset ??? Colon Cancer Brother age 73y ??? Healthy Daughter ??? Other Mother in 90s ??? Other Father in 50s ??? Healthy Brother On examination: BP 146/73 Pulse 78 Ht 5' (1.524 m) Wt 138 lb (62.596 kg) BMI 26.95 kg/m2 Body mass index is 26.95 kg/(m^2). Well-developed, well-nourished female. No cyanosis, no anemia. Breast exam: Symmetric, no erythema, no peau d'orange, no Paget's disease. No masses are felt in right breast. No nipple discharge. Nodularity upper-outer quadrant left? Fibrocystic change 4 x 4 CM Lymphatics: No axillary, supraclavicular or cervical adenopathy. Head and neck: Normocephalic, atraumatic, trachea central, no thyromegaly, no neck masses. Back: No lesions Chest: Good expansion, clear to auscultation and percussion, no rales or rhonchi. Cardiovascular: [place] undisplaced, normal first and second heart sounds, no murmurs. Abdomen: Soft, nontender, no masses, no hepatosplenomegaly. Extremities: Full range of motion both upper extremities, no edema. Neurologic exam: Grossly intact. Assessment Mammogram negative BI-RADS 1. Recommend ultrasound left. Recommend she call her primary care doctorDr. Harding regarding the correct dose of vitamin D for supplementation when one is deficient. Ultrasound was negative. Fibrocystic change. Continue annual follow up, she will call if any changes before then. documented in this encounter Plan of Treatment Not on file documented as of this encounter Visit Diagnoses Diagnosis Diffuse cystic mastopathy Atypical ductal hyperplasia of breast Other specified benign mammary dysplasias Breast cancer screening, high risk patient Screening mammogram for high-risk patient documented in this encounter Care Teams Engine Maintenance Mechanic Relationship Specialty Start Date End Date Ziggy Harding MD [address] [place] [address] [place] [address] PCP - General 03/17/09 documented as of this encounter
--- OUTSIDE RECORDS SUMMARY | 2024-10-24 12:56 | XMS_ITS | Encounter Summary ---
Author Organization [facility] Address [address] [place] [address] Care Team Providers Care General Worker Name Role Phone Ziggy Harding MD Primary Care Provider [phone] Reason for Referral * Outpatient Services (Routine) - Closed Specialty Diagnoses / Procedures Referred By Contac t Referred To Contact Radiology Diagnoses Observation for suspected malignant neoplasm Breast cancer screening, high risk patient Procedures MAMMO DIGITAL ANDREWG Bindu Verduzco MD [address] [place] [address] Referral ID Status Reason Start Date Expiration Date Visits Re quested Visits Authorized [id number] Closed 04/10/2012 04/10/2013 1 1 Reason for Visit * Outpatient Services (Routine) - Closed Specialty Diagnoses / Procedures Referred By Contac t Referred To Contact Radiology Diagnoses Observation for suspected malignant neoplasm Breast cancer screening, high risk patient Procedures MAMMO DIGITAL DIAG Bindu Verduzco MD [address] [place] [address] Referral ID Status Reason Start Date Expiration Date Visits Re quested Visits Authorized [id number] Closed 04/10/2012 04/10/2013 1 1 Encounter Details Date Type Department Care Team (Latest Contact Info) Description 04/02/2013 8:06 AM CDT - 04/02/2013 11:59 PM CDT Hospital Encounter [facility] [address] [phone] Bindu Aguirre MD [address] [place] [address] Discharge Disposition: Home or Self Care Social History Tobacco Use Types Packs/Day Years [...] this encounter Medications at Time of Discharge Medication Sig Dispensed Refills Start Date End Date Cetirizine (ZYRTEC) 10 mg Oral Cap Take by mouth. pravastatin (PRAVACHOL) 20 mg Oral tablet Take 20 mg by mouth Daily LATE. FLAXSEED OIL (OMEGA 3 ORAL) Take by mouth. NAPROXEN SODIUM (ALEVE ORAL) Take by mouth 1 time daily as needed. sczuqideebecs-ilchsemd-iqm albital (FIORICET) 325-40-50 mg Oral tablet Take 1 Tab by mouth every 4 hours as needed. montelukast (SINGULAIR) 10 mg Oral tablet Take 10 mg by mouth daily at bedtime. ERGOCALCIFEROL, VITAMIN D2, (VITAMIN D ORAL)Indications:Diffuse cystic mastopathy,Atypical ductal hyperplasia of breast,Breast cancer screening, high risk patient Take 1,000 mg by mouth. 05/03/2014 documented as of this encounter Plan of Treatment Not on file documented as of this encounter Procedures Procedure Name Priority Date/Time Associated Diagnosis Comments MAMMO DIAGNOSTIC BILATERAL W OR WO CAD Routine 04/02/2013 8:41 AM CDT OBSERVATION FOR SUSPECTED MALIGNANT NEOPLASM ADH documented in this encounter Results * MAMMO DIGITAL DIAG BILAT (04/02/2013 8:41 AM CDT) Anatomical Region Laterality Modality Breast Bilateral Mammography 04/02/2013 8:40 AM CDT Narrative 04/05/2013 9:02 AM CDT EXAM: BILATERAL DIAGNOSTIC FULL FIELD DIGITAL MAMMOGRAPHY WITH CAD, 04/02/2013 HISTORY: History of atypia. COMPARISON: 04/01/2012 and older. TECHNIQUE: Diagnostic views of both breasts were performed using full field digital mammography. Computer aided diagnosis was performed. ?? BREAST COMPOSITION: Scattered fibroglandular densities. FINDINGS: Slight distortion in the inner central left breast is redemonstrated, related to prior excisional biopsy. No suspicious mass, suspicious calcifications or concerning areas of architectural distortion are identified in either breast. OVERALL ASSESSMENT: BI-RADS Category: 2. Benign finding(s). RECOMMENDATION: Annual mammography is recommended. Dictated from [facility] Procedure Note Rachael Maldonado MD - 04/05/2013 EXAM: BILATERAL DIAGNOSTIC FULL FIELD DIGITAL MAMMOGRAPHY WITH CAD, 04/02/2013 HISTORY: History of atypia. COMPARISON: 04/01/2012 and older. TECHNIQUE: Diagnostic views of both breasts were performed using full field digital mammography. Computer aided diagnosis was performed. BREAST COMPOSITION: Scattered fibroglandular densities. FINDINGS: Slight distortion in the inner central left breast is redemonstrated, related to prior excisional biopsy. No suspicious mass, suspicious calcifications or concerning areas of architectural distortion are identified in either breast. OVERALL ASSESSMENT: BI-RADS Category: 2. Benign finding(s). RECOMMENDATION: Annual mammography is recommended. Dictated from [facility] Bindu Aguirre MD MAMMO ORDERABLES documented in this encounter Visit Diagnoses Diagnosis OBSERVATION FOR SUSPECTED MALIGNANT NEOPLASM Observation for suspected malignant neoplasm ADH Screening mammogram for high-risk patient documented in this encounter Care Teams General Worker Relationship Specialty Start Date End Date Ziggy Harding MD [address] [place] [address] [place] [address] PCP - General 03/17/09 documented as of this encounter
--- OUTSIDE RECORDS SUMMARY | 2024-10-24 12:56 | XMS_ITS | Encounter Summary ---
Author Organization [facility] Address [address] [place] [address] Care Team Providers Care Head Athletic Trainer/Strength Coach Name Role Phone Ziggy Harding MD Primary Care Provider [phone] Reason for Referral * Outpatient Services (Routine) - Closed Specialty Diagnoses / Procedures Referred By Chet nicholson Referred To Contact Diagnoses Breast mass, left Procedures MAMMO BREAST US LT Bindu Aguirre MD [address] [place] [address] Referral ID Status Reason Start Date Expiration Date Visits Re quested Visits Authorized [id number] Closed 05/03/2014 06/03/2015 1 1 Reason for Visit * Outpatient Services (Routine) - Closed Specialty Diagnoses / Procedures Referred By Chet nicholson Referred To Contact Diagnoses Breast mass, left Procedures MAMMO BREAST US LT Bindu Aguirre MD [address] [place] [address] Referral ID Status Reason Start Date Expiration Date Visits Re quested Visits Authorized [id number] Closed 05/03/2014 06/03/2015 1 1 Encounter Details Date Type Department Care Team (Latest Contact Info) Description 05/03/2014 9:10 AM CDT - 05/03/2014 11:59 PM CDT Hospital Encounter [facility] [address] [place] [address] Bindu Aguirre MD [address] [place] [address] Discharge Disposition: Home or Self Care Social [...] Sig Dispensed Refills Start Date End Date PROPYLENE GLYCOL/PEG 400 (SYSTANE OP) by Ophthalmic route. Cetirizine (ZYRTEC) 10 mg Oral Cap Take by mouth. pravastatin (PRAVACHOL) 20 mg Oral tablet Take 20 mg by mouth Daily LATE. FLAXSEED OIL (OMEGA 3 ORAL) Take by mouth. NAPROXEN SODIUM (ALEVE ORAL) Take by mouth 1 time daily as needed. smfdbibuemmbv-heznlouw-t utalbital (FIORICET) 325-40-50 mg Oral tablet Take 1 Tab by mouth every 4 hours as needed. montelukast (SINGULAIR) 10 mg Oral tablet Take 10 mg by mouth daily at bedtime. documented as of this encounter Plan of Treatment Not on file documented as of this encounter Procedures Procedure Name Priority Date/Time Associated Diagnosis Comments MAMMO BREAST US LT COMPLETE Routine 05/03/2014 9:32 AM CDT Breast mass, left documented in this encounter Results * MAMMO BREAST US LT (05/03/2014 9:32 AM CDT) Anatomical Region Laterality Modality Breast Left Ultrasound 05/03/2014 9:32 AM CDT Narrative 05/04/2014 11:05 AM CDT LEFT BREAST ULTRASOUND. 05/03/14 HISTORY: Dr. Aguirre felt a lump in the upper-outer quadrant of the left breast. Technique: Ultrasound of the upper-outer quadrant of the left breast was performed. This demonstrates dense tissue, but no solid or cystic lesions. Overall assessment: BI-RADS category one. Negative. Recommendation: Annual mammography is recommended. Dictated from [facility] Procedure Note Willa Tavarez MD - 05/04/2014 LEFT BREAST ULTRASOUND. 05/03/14 HISTORY: Dr. Aguirre felt a lump in the upper-outer quadrant of the left breast. Technique: Ultrasound of the upper-outer quadrant of the left breast was performed. This demonstrates dense tissue, but no solid or cystic lesions. Overall assessment: BI-RADS category one. Negative. Recommendation: Annual mammography is recommended. Dictated from [facility] Bindu Aguirre MD MAMMO ORDERABLES documented in this encounter Visit Diagnoses Diagnosis Breast mass, left Lump or mass in breast documented in this encounter Care Teams Head Athletic Trainer/Strength Coach Relationship Specialty Start Date End Date Ziggy Harding MD [address] [place] [address] [place] [address] PCP - General 03/17/09 documented as of this encounter
--- OUTSIDE RECORDS SUMMARY | 2024-10-24 12:56 | XMS_ITS | Encounter Summary ---
Author Organization [facility] Address [address] [place] [address] Care Team Providers Care Car Loader Name Role Phone Ziggy Harding MD Primary Care Provider [phone] Reason for Referral * Outpatient Services (Routine) - Closed Specialty Diagnoses / Procedures Referred By Contbecka nicholson Referred To Contact Radiology Diagnoses Breast lump Procedures MAMMO DIGITAL DIAG BILAT Bindu Aguirre MD [address] [place] [address] Referral ID Status Reason Start Date Expiration Date Visits Re quested Visits Authorized [id number] Closed 05/11/2013 06/11/2014 1 1 Reason for Visit * Reason Onset Date Comments Other 05/10/2013 sign orders Encounter Details Date Type Department Care Team (Late st Contact Info) Description 05/10/2013 Telephone [facility] [address] [place] [address] Bindu Aguirre MD [address] [place] [address] Other (sign orders) Social History Tobacco Use Types Packs/Day Years [...] on file documented as of this encounter Results * MAMMO DIGITAL DIAG BILAT (05/03/2014 8:34 AM CDT) Anatomical Region Laterality Modality Breast Bilateral Mammography 05/03/2014 8:33 AM CDT Narrative 05/04/2014 11:05 AM CDT BILATERAL DIAGNOSTIC FULL FIELD DIGITAL MAMMOGRAPHY WITH CAD, 05/03/14 HISTORY: Elevated risk to previous atypical ductal hyperplasia. The patient was on Evista for 5 years. TECHNIQUE: Diagnostic mammograms of both breasts were performed using full field digital mammography. Comparison is made with prior studies dated March 2013, March 2012 and February 2009. BREAST COMPOSITION: Heterogeneously dense, which lowers the sensitivity of mammography. FINDINGS: No dominant masses, suspicious calcifications, parenchymal asymmetry or areas of architectural distortion are identified in either breast. Since the prior study, there has been no significant change. The computer aided detection system was utilized. OVERALL ASSESSMENT: BI-RADS Category: 1, negative. RECOMMENDATION: Routine mammographic followup in one year. Dictated from [facility] Procedure Note Willa Tavarez MD - 05/04/2014 BILATERAL DIAGNOSTIC FULL FIELD DIGITAL MAMMOGRAPHY WITH CAD, 05/03/14 HISTORY: Elevated risk to previous atypical ductal hyperplasia. The patient was on Evista for 5 years. TECHNIQUE: Diagnostic mammograms of both breasts were performed using full field digital mammography. Comparison is made with prior studies dated March 2013, March 2012 and February 2009. BREAST COMPOSITION: Heterogeneously dense, which lowers the sensitivity of mammography. FINDINGS: No dominant masses, suspicious calcifications, parenchymal asymmetry or areas of architectural distortion are identified in either breast. Since the prior study, there has been no significant change. The computer aided detection system was utilized. OVERALL ASSESSMENT: BI-RADS Category: 1, negative. RECOMMENDATION: Routine mammographic followup in one year. Dictated from [facility] Bindu Aguirre MD MAMMO ORDERABLES documented in this encounter Visit Diagnoses Diagnosis Breast lump- Primary Lump or mass in breast Breast lump Lump or mass in breast documented in this encounter Care Teams Car Loader Relationship Specialty Start Date End Date Ziggy Harding MD [address] [place] [address] [place] [address] PCP - General 5/22/09 documented as of this encounter
--- OUTSIDE RECORDS SUMMARY | 2024-10-24 12:56 | XMS_ITS | Encounter Summary ---
Author Organization [facility] Address [address] [place] [address] Care Team Providers Care Church Administrator Name Role Phone Ziggy Harding MD Primary Care Provider [phone] Reason for Referral * Outpatient Services (Routine) - Closed Specialty Diagnoses / Procedures Referred By Chet nicholson Referred To Contact Diagnoses Breast cancer screening, high risk patient Procedures MAMMO DIGITAL DIAG Bindu Verduzco MD [address] [place] [address] Referral ID Status Reason Start Date Expiration Date Visits Re quested Visits Authorized [id number] Closed 03/27/2011 09/23/2011 1 1 Reason for Visit * Outpatient Services (Routine) - Closed Specialty Diagnoses / Procedures Referred By Chet nicholson Referred To Contact Diagnoses Breast cancer screening, high risk patient Procedures MAMMO DIGITAL DIABindu Fish MD [address] [place] [address] Referral ID Status Reason Start Date Expiration Date Visits Re quested Visits Authorized [id number] Closed 03/27/2011 09/23/2011 1 1 Encounter Details Date Type Department Care Team (Latest Contact Info) Description 04/01/2012 8:12 AM CDT - 04/01/2012 11:59 PM CDT Hospital Encounter [facility] [address] [place] [address] Bindu Aguirre MD [address] [place] [address] Discharge Disposition: Home or Self Care Social [...] Sig Dispensed Refills Start Date End Date acetaminophen-caffeine- butalbital (FIORICET) 325-40-50 mg Oral tablet Take 1 Tab by mouth every 4 hours as needed. montelukast (SINGULAIR) 10 mg Oral tablet Take 10 mg by mouth daily at bedtime. ERGOCALCIFEROL, VITAMIN D2, (VITAMIN D ORAL)Indications:Diffus e cystic mastopathy,Atypical ductal hyperplasia of breast,Breast cancer screening, high risk patient Take 1,000 mg by mouth. 05/03/2014 ipratropium bromide (ATROVENT) 0.03 % Both Nostril [place] Administer 2 Sprays in each nostril 2 times daily. 04/02/2013 FEXOFENADINE HCL (ARELI PO) Take by mouth. 04/02/2013 documented as of this encounter Plan of Treatment Not on file documented as of this encounter Procedures Procedure Name Priority Date/Time Associated Diagnosis Comments MAMMO DIAGNOSTIC BILATERAL W OR WO CAD Routine 04/01/2012 8:24 AM CDT ADH documented in this encounter Results * MAMMO DIGITAL DIAG BILAT (04/01/2012 8:24 AM CDT) Anatomical Region Laterality Modality Breast Bilateral Mammography 04/01/2012 8:18 AM CDT Narrative 04/01/2012 11:16 AM CDT BILATERAL FULL DIGITAL DIAGNOSTIC MAMMOGRAMS COMPUTER-AIDED DETECTION AND BILATERAL BREAST ULTRASOUND. 04/01/12 HISTORY: Palpable abnormality in the left breast. Patient has a history of a previous bilateral benign biopsy of the left breast. Technique: Bilateral full field digital diagnostic mammogram was performed. CAD was utilized. Comparison is made with previous studies dated March 2011, February 2010 and February 2009. Breast composition: Heterogeneously dense which lowers the sensitivity of mammography. FINDINGS: In the lower inner quadrant of the right breast anterior depth, increasing asymmetry is identified. An ultrasound of this region is recommended. No other new dominant masses, areas of asymmetry or suspicious clustered calcifications are identified within either breast. CAD was utilized. A right breast ultrasound was performed in the lower inner quadrant, anterior depth. This demonstrates only dense breast tissue. In the left breast in the region of the patient's palpable abnormality which is in the upper-outer quadrant, no solid or cystic lesions are seen. OVERALL ASSESSMENT: ??BI-RADS category 1 - Negative Recommendation: Annual mammography is recommended. Clinical followup is recommended for the patient's palpable abnormality in the left breast which has no mammographic or ultrasound correlate. Procedure Note Willa Tavarez L - 04/01/2012 BILATERAL FULL DIGITAL DIAGNOSTIC MAMMOGRAMS COMPUTER-AIDED DETECTION AND BILATERAL BREAST ULTRASOUND. 04/01/12 HISTORY: Palpable abnormality in the left breast. Patient has a history of a previous bilateral benign biopsy of the left breast. Technique: Bilateral full field digital diagnostic mammogram was performed. CAD was utilized. Comparison is made with previous studies dated March 2011, February 2010 and February 2009. Breast composition: Heterogeneously dense which lowers the sensitivity of mammography. FINDINGS: In the lower inner quadrant of the right breast anterior depth, increasing asymmetry is identified. An ultrasound of this region is recommended. No other new dominant masses, areas of asymmetry or suspicious clustered calcifications are identified within either breast. CAD was utilized. A right breast ultrasound was performed in the lower inner quadrant, anterior depth. This demonstrates only dense breast tissue. In the left breast in the region of the patient's palpable abnormality which is in the upper-outer quadrant, no solid or cystic lesions are seen. OVERALL ASSESSMENT: BI-RADS category 1 - Negative Recommendation: Annual mammography is recommended. Clinical followup is recommended for the patient's palpable abnormality in the left breast which has no mammographic or ultrasound correlate. Bindu Aguirre MD MAMMO ORDERABLES documented in this encounter Visit Diagnoses Diagnosis ADH Screening mammogram for high-risk patient documented in this encounter Care Teams Church Administrator Relationship Specialty Start Date End Date Ziggy Harding MD [address] [place] [address] [place] [address] PCP - General 03/17/09 documented as of this encounter
--- OUTSIDE RECORDS SUMMARY | 2024-10-24 12:56 | XMS_ITS | Encounter Summary ---
Author Organization [facility] Address [address] [place] [address] Care Team Providers Care Hardware Press Operator Name Role Phone Ziggy Harding MD Primary Care Provider Reason for Referral * Outpatient Services (Routine) - Closed Specialty Diagnoses / Procedures Referred By Contac t Referred To Contact Diagnoses Breast cancer screening, high risk patient Procedures MAMMO DIGITAL SCREEN BILAT [facility] Breast Surgery [facility] [address] [place] [address] Referral ID Status Reason Start Date Expiration Date Visits Re quested Visits Authorized [id number] Closed 05/20/2014 06/20/2015 1 1 Reason for Visit * Outpatient Services (Routine) - Closed Specialty Diagnoses / Procedures Referred By Contac t Referred To Contact Diagnoses Breast cancer screening, high risk patient Procedures MAMMO DIGITAL SCREEN [facility] Breast Surgery [facility] [address] [place] [address] Referral ID Status Reason Start Date Expiration Date Visits Re quested Visits Authorized [id number] Closed 05/20/2014 06/20/2015 1 1 Encounter Details Date Type Department Care Team (Latest Contact Info) Description 05/24/2015 7:44 AM CDT - 05/24/2015 11:59 PM CDT Hospital Encounter [facility] [address] [place] [address] Bindu Aguirre MD [address] [place] [address] Discharge Disposition: Home or Self Care Social [...] Sig Dispensed Refills Start Date End Date ERGOCALCIFEROL, VITAMIN D2, (VITAMIN D ORAL) Take by mouth. PROPYLENE GLYCOL/PEG 400 (SYSTANE OP) by Ophthalmic route. Cetirizine (ZYRTEC) 10 mg Oral Cap Take by mouth. pravastatin (PRAVACHOL) 20 mg Oral tablet Take 20 mg by mouth Daily LATE. FLAXSEED OIL (OMEGA 3 ORAL) Take by mouth. NAPROXEN SODIUM (ALEVE ORAL) Take by mouth 1 time daily as needed. mwcsezmwbnerw-siswagtg-n utalbital (FIORICET) 325-40-50 mg Oral tablet Take 1 Tab by mouth every 4 hours as needed. montelukast (SINGULAIR) 10 mg Oral tablet Take 10 mg by mouth daily at bedtime. documented as of this encounter Plan of Treatment Not on file documented as of this encounter Procedures Procedure Name Priority Date/Time Associated Diagnosis Comments MAMMO SCREEN BILAT W OR WO CAD Routine 05/24/2015 7:58 AM CDT ADH documented in this encounter Results * MAMMO DIGITAL SCREEN BILAT (05/24/2015 7:58 AM CDT) Anatomical Region Laterality Modality Breast Bilateral Mammography 05/24/2015 7:47 AM CDT Narrative 05/24/2015 3:20 PM CDT BILATERAL DIGITAL SCREENING MAMMOGRAM WITH CAD DATE: May 24, 2015 07:47:50 AM INDICATION: Routine screening. TECHNIQUE: Standard images were obtained of both breasts on a digital system. CAD was utilized. ?? COMPARISON: Comparison made to multiple prior studies dating back to 03/17/2009 BREAST COMPOSITION: Scattered fibroglandular densities. FINDINGS: No dominant masses, suspicious calcifications, parenchymal asymmetry or areas of architectural distortion are identified in either breast. OVERALL ASSESSMENT: BI-RADS Category 1: Negative. RECOMMENDATIONS: Recommend continued annual mammography. Dictated from [facility] Procedure Note Jose Enrique Babcock MD - 05/24/2015 BILATERAL DIGITAL SCREENING MAMMOGRAM WITH CAD DATE: May 24, 2015 07:47:50 AM INDICATION: Routine screening. TECHNIQUE: Standard images were obtained of both breasts on a digital system. CAD was utilized. COMPARISON: Comparison made to multiple prior studies dating back to 03/17/2009 BREAST COMPOSITION: Scattered fibroglandular densities. FINDINGS: No dominant masses, suspicious calcifications, parenchymal asymmetry or areas of architectural distortion are identified in either breast. OVERALL ASSESSMENT: BI-RADS Category 1: Negative. RECOMMENDATIONS: Recommend continued annual mammography. Dictated from [facility] Bindu Aguirre MD MAMMO ORDERABLES documented in this encounter Visit Diagnoses Diagnosis ADH Screening mammogram for high-risk patient documented in this encounter Care Teams Hardware Press Operator Relationship Specialty Start Date End Date Ziggy Harding MD [address] [place] [address] [place] [address] PCP - General 03/17/09 documented as of this encounter
--- OUTSIDE RECORDS SUMMARY | 2024-10-24 12:56 | XMS_ITS | Encounter Summary ---
Author Organization [facility] Address [address] [place] [address] Care Team Providers Care Docking Saw Operator Name Role Phone Ziggy Harding MD Primary Care Provider [phone] Reason for Visit * Outpatient Services (Routine) - Closed Specialty Diagnoses / Procedures Referred By Contac t Referred To Contact Diagnoses Breast cancer screening, high risk patient Procedures MAMMO BREAST US BILAT Bindu Aguirre MD [address] [place] [address] Referral ID Status Reason Start Date Expiration Date Visits Re quested Visits Authorized [id number] Closed 04/01/2012 04/01/2013 1 1 Encounter Details Date Type Department Care Team (Latest Contact Info) Description 04/01/2012 8:38 AM CDT - 04/01/2012 11:59 PM CDT Hospital Encounter [facility] [address] [place] [address] Bindu Aguirre MD [address] [place] [address] Discharge Disposition: Home or Self Care Social [...] ipratropium bromide (ATROVENT) 0.03 % Both Nostril Inman Administer 2 Sprays in each nostril 2 times daily. 04/02/2013 FEXOFENADINE HCL (ARELI PO) Take by mouth. 04/02/2013 documented as of this encounter Plan of Treatment Not on file documented as of this encounter Procedures Procedure Name Priority Date/Time Associated Diagnosis Comments MAMMO BREAST US BILAT COMPLETE Routine 04/01/2012 9:54 AM CDT ADH documented in this encounter Results * MAMMO BREAST US BILAT (04/01/2012 9:54 AM CDT) Anatomical Region Laterality Modality Breast Bilateral Ultrasound 04/01/2012 8:40 AM CDT Narrative 04/01/2012 11:16 AM CDT [...] or ultrasound correlate. Procedure Note Willa Tavarez - 04/01/2012 BILATERAL FULL DIGITAL DIAGNOSTIC MAMMOGRAMS [...] patient documented in this encounter Care Teams Docking Saw Operator Relationship Specialty Start Date End Date Ziggy Harding MD [address] [place] [address] [place] [address] PCP - General 03/17/09 documented as of this encounter
--- OUTSIDE RECORDS SUMMARY | 2024-10-24 12:56 | XMS_ITS | Encounter Summary ---
Author Organization [facility] Address [address] [place] [address] Care Team Providers Care Linter Saw Sharpener Name Role Phone Ziggy Harding MD Primary Care Provider [phone] Reason for Visit * Reason Comments Breast Exam, Routine, No Symptoms annual ov Encounter Details Date Type Department Care Team (Late st Contact Info) Description 05/24/2015 9:30 AM CDT Office Visit [facility] [address] [facility] [address] [place] [address] Bindu Aguirre MD [address] [place] [address] ADH (Primary Dx); Breast cancer screening, high risk patient Social [...] Pulse 80 05/24/2015 8:28 AM CDT Temperature - - Respiratory Rate - - Oxygen Saturation - - Inhaled Oxygen Concentration - - Weight 66.7 kg (147 lb) 05/24/2015 8:28 AM CDT Height 154.9 cm (5' 1 ) 05/24/2015 8:28 AM CDT Body Mass Index 27.78 05/24/2015 8:28 AM CDT documented in this encounter Progress Notes * Bindu Aguirre MD - 05/24/2015 8:48 AM CDT Love Catherine is a 69 y.o. female Elevated risk for breast cancer because of a past history of atypical ductal hyperplasia. She completed 5 years of medical risk reduction 2010. She status post colonoscopic polypectomy She had a trip to the emergency room in the past year because of a dry socket She has been having pain in her right shoulder and is seeing a chiropractor ROS: General- no fevers, chills, positive for weight gain 5 pounds-she eats a cereall bowl full of ice cream every night Skin- no rash, itching, skin changes, HEENT: - no headaches vertigo, lightheadedness, double vision, HEART - no palpitations, syncope, COVARRUBIAS , no [place], CVA LUNGS- no pleuritic pain, wheezing, cough positive for shortness of breath on climbing stairs GI - no appetite change, abd pain, heartburn,N/V/C/D - no urgency, frequency, dysuria MUSK/SKEL- positive for pain right shoulder Neuro - no sensory/motor disturbances Psych- no anxiety, depression No Known Allergies OB History Para Term AB TAB SAB Ectopic Multiple Living 1 1 Obstetric Comments Colonoscopy due (had polyp) BMD: January 2008 osteopenia Age @ onset of menses:11 Age @ first live : 38 Menopause: 48 Patient Active Problem List Diagnosis Code ??? ADH V76.11 ??? Osteopenia 733.90 ??? Diverticular Disease 562.10 ??? Hypercholesterolemia 272.0 Current Outpatient Prescriptions Medication Sig Dispense Refill ??? ERGOCALCIFEROL, VITAMIN D2, (VITAMIN D ORAL) Take by mouth. ??? PROPYLENE GLYCOL/PEG 400 (SYSTANE OP) by Ophthalmic route. ??? Cetirizine (ZYRTEC) 10 mg Oral Cap Take by mouth. ??? pravastatin (PRAVACHOL) 20 mg Oral tablet Take 20 mg by mouth Daily LATE. ??? NAPROXEN SODIUM (ALEVE ORAL) Take by mouth 1 time daily as needed. ??? olhqeiyyrielv-dbumwpcz-migxoqqhob (FIORICET) 325-40-50 mg Oral tablet Take 1 Tab by mouth every4 hours as needed. ??? montelukast (SINGULAIR) 10 mg Oral tablet Take 10 mg by mouth daily at bedtime. ??? FLAXSEED OIL (OMEGA 3 ORAL) Take by mouth. No current facility-administered medications for this visit. Past Medical History Diagnosis Date ??? Atypical hyperplasia of breasts ??? Arthritis ??? Diverticular disease h/o ??? Hypercholesterolemia 04/02/2013 Past Surgical History Procedure Laterality Date ??? Hx breast biopsy 02/03/2006 left breast excision, ADH ??? Hx excisional biopsy Left 2006 History Social History ??? Marital Status: Spouse Name: N/A Number of Children: 1 ??? Years of Education: N/A Occupational History ??? works at [employer] Social History Main Topics ??? Smoking status: Never Smoker ??? Smokeless tobacco: Never Used ??? Alcohol Use: No Comment: rarely ??? Drug Use: No ??? Sexual Activity: Not on file Other Topics Concern ??? Not on file Social History Narrative Family History Problem Relation Age of Onset ??? Colon Cancer Brother age 73y ??? Healthy Daughter ??? Other Mother in 90s ??? Other Father in 50s ??? Healthy Brother ??? Breast Cancer Neg Hx ??? Ovarian Cancer Neg Hx On examination: BP 149/80 mmHg Pulse 80 Ht 5' 1 (1.549 m) Wt 147 lb (66.679 kg) BMI 27.79 kg/m2 ? No Body mass index is 27.79 kg/(m^2). Well-developed, well-nourished female. No cyanosis, no anemia. Breast exam: Symmetric, no erythema, no peau d'orange, no Paget's disease. No masses are felt in either breast. No nipple discharge. Scar 9:00 left breast Lymphatics: No axillary, supraclavicular or cervical adenopathy. Head and neck: Normocephalic, atraumatic, trachea central, no thyromegaly, no neck masses. Back: No lesions Chest: Good expansion, clear to auscultation and percussion, no rales or rhonchi. Cardiovascular: Hallie undisplaced, normal first and second heart sounds, no murmurs. Abdomen: Soft, nontender, no masses, no hepatosplenomegaly. Extremities: Full range of motion both upper extremities, no edema. Neurologic exam: Grossly intact. Assessment #1 no worrisome findings exam #2 she had a mammogram today #3 I reviewed the films that your negative #4 suggest three-dimensional mammogram going forward #5 weight gain 5 pounds, we talked about the anti-inflammatory diet and a copy of this was given toher. She is going to initiate a weight loss program with a chiropractor Axlk-yo-ocuo time 15 minutes, greater than 50% of the visit was spent in counseling and coordination of care documented in this encounter Plan of Treatment Not on file documented as of this encounter Visit Diagnoses Diagnosis ADH- Primary Screening mammogram for high-risk patient documented in this encounter Care Teams Linter Saw Sharpener Relationship Specialty Start Date End Date Ziggy Harding MD [address] [place] [address] [place] [address] PCP - General 03/17/09 documented as of this encounter
--- OUTSIDE RECORDS SUMMARY | 2024-10-24 12:56 | XMS_ITS | Encounter Summary ---
Author Organization [facility] Address [address] [place] [address] Care Team Providers Care Central Services Tech Name Role Phone Ziggy Harding MD Primary Care Provider [phone] Encounter Details Date Type Department Care Team (Late st Contact Info) Description 05/15/2016 Orders Only [facility] BREAST SURGERY - [facility] [address] [place] [address] Anais Natarajan MD [address] [address] ADH (Primary Dx); Encounter for screening mammogram for high-risk patient Social History Tobacco Use Types Packs/Day [...] ADH- Primary Screening mammogram for high-risk patient Encounter for screening mammogram for high-risk patient documented in this encounter Care Teams Central Services Tech Relationship Specialty Start Date End Date Ziggy Harding MD [facility] [place] [address] PCP - General 03/17/09 documented as of this encounter
--- OUTSIDE RECORDS SUMMARY | 2024-10-24 12:56 | XMS_ITS | Encounter Summary ---
Author Organization [facility] Address [address] [place] [address] Care Team Providers Care Machine Fitter Name Role Phone Ziggy Harding MD Primary Care Provider [phone] Reason for Referral * Outpatient Services (Routine) - Closed Specialty Diagnoses / Procedures Referred By Contac t Referred To Contact Radiology Diagnoses Observation for suspected malignant neoplasm Breast cancer screening, high risk patient Procedures MAMMO DIGITAL DIAG BILAT Bindu Aguirre MD [address] [place] [address] Referral ID Status Reason Start Date Expiration Date Visits Re quested Visits Authorized [id number] Closed 04/10/2012 04/10/2013 1 1 Encounter Details Date Type Department Care Team (Late st Contact Info) Description 04/10/2012 Orders Only [facility] BREAST SURGERY - [facility] [address] [place] [address] Bindu Aguirre MD [address] [place] [address] ADH (Primary Dx); OBSERVATION FOR SUSPECTED MALIGNANT NEOPLASM Social History Tobacco Use Types Packs/Day Years [...] documented in this encounter Visit Diagnoses Diagnosis ADH- Primary Screening mammogram for high-risk patient OBSERVATION FOR SUSPECTED MALIGNANT NEOPLASM Observation for suspected malignant neoplasm OBSERVATION FOR SUSPECTED MALIGNANT NEOPLASM Observation for suspected malignant neoplasm ADH Screening mammogram for high-risk patient documented in this encounter Care Teams Machine Fitter Relationship Specialty Start Date End Date Ziggy Harding MD [address] [place] [address] [place] [address] PCP - General 03/17/09 documented as of this encounter
--- OUTSIDE RECORDS SUMMARY | 2024-10-24 12:56 | XMS_ITS | Encounter Summary ---
Author Organization [facility] Address [address] [place] [address] Care Team Providers Care Estate Attorney Name Role Phone Ziggy Harding MD Primary Care Provider [phone] Reason for Visit * Reason Comments High Risk annual ck up Encounter Details Date Type Department Care Team (Latest Contact Info) Description 04/02/2013 9:30 AM CDT Office Visit [facility] [address] [place] [address] Bindu Aguirre MD [address] [place] [address] Hypercholesterolemia (Primary Dx); ADH; Breast cancer screening, high risk patient Social [...] Reading Time Taken Comments Blood Pressure 148/80 04/02/2013 8:59 AM CDT Pulse 64 04/02/2013 8:59 AM CDT Temperature - - Respiratory Rate - - Oxygen Saturation - - Inhaled Oxygen Concentration - - Weight 62.6 kg (138 lb) 04/02/2013 8:59 AM CDT Height 152.4 cm (5') 04/02/2013 8:59 AM CDT Body Mass Index 26.95 04/02/2013 8:59 AM CDT documented in this encounter Progress Notes * Bindu Aguirre MD - 04/02/2013 9:21 AM CDT Love Catherine is a 67 y.o. female followup examination. Elevated risk due to previous atypical ductal hyperplasia. Completed 5 years on Evista for prevention in 2010. She is now on a statin. She had a colonoscopy within 12 months and polyps were found. Last mammogram 04/01/2012 ROS: General- no fevers, chills, weight loss or gain Skin- no rash, itching, skin changes, HEENT: - no headaches vertigo, lightheadedness, double vision, HEART - no palpitations, syncope, COVARRUBIAS , no AR, CVA LUNGS- no pleuritic pain, SOB, wheezing, cough GI - no appetite change, abd pain, heartburn,N/V/C/D - no urgency, frequency, dysuria MUSK/SKEL-no muscles, joints or bone pain. Neuro - no sensory/motor disturbances Psych- no anxiety, depression Allergic- no reactions to food Endocrine no DM, hypothyroid, or bleeding, easy bruising No Known Allergies OB History Grav Para Term Abortions TAB SAB Ect Mult Living 1 1 Obstetric Comments Colonoscopy due (had polyp) BMD: January 2008 osteopenia Age @ onset of menses:11 Age @ first live : 38 Menopause: 48 Patient Active Problem List Diagnosis Code ??? ADH V76.11 ??? Osteopenia 733.90 ??? Diverticular Disease 562.10 Current Outpatient Prescriptions Medication Sig Dispense Refill ??? Cetirizine (ZYRTEC) 10 mg Oral Cap Take by mouth. ??? pravastatin (PRAVACHOL) 20 mg Oral tablet Take 20 mg by mouth Daily LATE. ??? FLAXSEED OIL (OMEGA 3 ORAL) Take by mouth. ??? NAPROXEN SODIUM (ALEVE ORAL) Take by mouth 1 time daily as needed. ??? ERGOCALCIFEROL, VITAMIN D2, (VITAMIN D ORAL) Take 1,000 mg by mouth. ??? aeqfzlwxnrjdx-undqjrbk-agumiriaae (FIORICET) 325-40-50 mg Oral tablet Take 1 Tab by mouth every4 hours as needed. ??? montelukast (SINGULAIR) 10 mg Oral tablet Take 10 mg by mouth daily at bedtime. No current facility-administered medications for this visit. Past Medical History Diagnosis Date ??? Atypical hyperplasia of breasts ??? Arthritis ??? Diverticular disease h/o Past Surgical History Procedure Laterality Date ??? Hx breast biopsy 02/03/2006 left breast excision, ADH History Social History ??? Marital Status: Spouse Name: N/A Number of Children: 1 ??? Years of Education: N/A Occupational History ??? works at [employer] Social History Main Topics ??? Smoking status: [...] Ovarian Cancer Neg Hx On examination: BP 148/80 Pulse 64 Ht 5' (1.524 m) Wt 138 lb (62.596 kg) BMI 26.95 kg/m2 Body mass index is 26.95 kg/(m^2). Well-developed, well-nourished female. No cyanosis, no anemia. Breast exam: Symmetric, no erythema, no peau d'orange, no Paget's disease. No masses are felt in either breast. No nipple discharge. Lymphatics: No axillary, supraclavicular or cervical adenopathy. Head and neck: Normocephalic, atraumatic, trachea central, no thyromegaly, no neck masses. Back: No lesions Chest: Good expansion, clear to auscultation and percussion, no rales or rhonchi. Cardiovascular: Crescent undisplaced, normal first and second heart sounds, no murmurs. Abdomen: Soft, nontender, no masses, no hepatosplenomegaly. Extremities: Full range of motion both upper extremities, no edema. Neurologic exam: Grossly intact. Assessment there is nothing on her exam. I reviewed her mammograms from today, they've also been route reviewed by the radiologist. BI-RADS one right BI-RADS 2 left. Nothing concerning on examination. Continue annual surveillance because her high-risk status. documented in this encounter Plan of Treatment Not on file documented as of this encounter Visit Diagnoses Diagnosis Hypercholesterolemia- Primary Pure hypercholesterolemia ADH Screening mammogram for high-risk patient documented in this encounter Care Teams Estate Attorney Relationship Specialty Start Date End Date Ziggy Harding MD [address] [place] [address] [place] [address] PCP - General 03/17/09 documented as of this encounter
--- OUTSIDE RECORDS SUMMARY | 2024-10-24 12:56 | XMS_ITS | Encounter Summary ---
Author Organization [facility] Address [address] [place] [address] Care Team Providers Care Car Electronics Installer Name Role Phone Ziggy Harding MD Primary Care Provider [phone] Reason for Referral * Outpatient Services (Routine) - Closed Specialty Diagnoses / Procedures Referred By Chet t Referred To Contact Radiology Diagnoses Breast lump Procedures MAMMO DIGITAL DIAG Bindu Verduzco MD [address] [place] [address] Referral ID Status Reason Start Date Expiration Date Visits Re quested Visits Authorized [id number] Closed 05/11/2013 06/11/2014 1 1 Reason for Visit * Outpatient Services (Routine) - Closed Specialty Diagnoses / Procedures Referred By Chet t Referred To Contact Radiology Diagnoses Breast lump Procedures MAMMO DIGITAL ANDREWG Bindu Verduzco MD [address] [place] [address] Referral ID Status Reason Start Date Expiration Date Visits Re quested Visits Authorized [id number] Closed 05/11/2013 06/11/2014 1 1 Encounter Details Date Type Department Care Team (Latest Contact Info) Description 05/03/2014 8:15 AM CDT - 05/03/2014 11:59 PM CDT Hospital Encounter [facility] [address] [place] [address] Bindu Aguirre MD [address] [place] [address] Discharge Disposition: Home or Self Care Social [...] by mouth 1 time daily as needed. yvunmvktzfizm-dtazshwu-l utalbital (FIORICET) 325-40-50 mg Oral tablet Take 1 Tab by mouth every 4 hours as needed. montelukast (SINGULAIR) 10 mg Oral tablet Take 10 mg by mouth daily at bedtime. documented as of this encounter Plan of Treatment Not on file documented as of this encounter Procedures Procedure Name Priority Date/Time Associated Diagnosis Comments MAMMO DIAGNOSTIC BILATERAL W OR WO CAD Routine 05/03/2014 8:34 AM CDT Breast lump documented in this encounter Results * MAMMO [...] in this encounter Visit Diagnoses Diagnosis Breast lump Lump or mass in breast documented in this encounter Care Teams Car Electronics Installer Relationship Specialty Start Date End Date Ziggy Harding MD [address] [place] [address] [place] [address] PCP - General 03/17/09 documented as of this encounter
--- OUTSIDE RECORDS SUMMARY | 2024-10-24 12:56 | XMS_ITS | Encounter Summary ---
Author Organization [facility] Address [address] [place] [address] Care Team Providers Care Travel Nurse Name Role Phone Ziggy Harding MD Primary Care Provider [phone] Reason for Visit * Reason Onset Date Comments Other 04/02/2013 sign orders Encounter Details Date Type Department Care Team (Late st Contact Info) Description 04/02/2013 Telephone [facility] [address] [facility] [address] [place] [address] Bindu Aguirre MD [address] [place] [address] Other (sign orders) Social History Tobacco Use [...] as of this encounter Visit Diagnoses Diagnosis Breast cancer screening, high risk patient- Primary Screening mammogram for high-risk patient documented in this encounter Care Teams Travel Nurse Relationship Specialty Start Date End Date Ziggy Harding MD [address] [place] [address] [place] [id number] PCP - General 03/17/09 documented as of this encounter
--- OUTSIDE RECORDS SUMMARY | 2024-10-24 12:56 | XMS_ITS | Encounter Summary ---
Author Organization [facility] Address [address] [place] [address] Care Team Providers Care General Engineering Teacher Name Role Phone Ziggy Harding MD Primary Care Provider [phone] Encounter Details Date Type Department Care Team (Late st Contact Info) Description 04/07/2013 Orders Only [facility] BREAST SURGERY - [facility] [address] [place] [address] Provider, Abstract NO ADDRESS ON FILE Social History Tobacco Use Types Packs/Day Years [...] SCREEN BILAT W OR WO CAD Routine 03/17/2009 MRI BREAST DIAGNOSTIC WWO CO NTRAST BILATERAL Routine 02/16/2008 CREATININE Routine 02/16/2008 NM BONE DENSITY Routine 02/12/2008 MAMMO SCREEN BILAT W OR WO CAD Routine 02/12/2008 PATHOLOGY REPORT Routine 02/03/2006 documented in this encounter Results * MAMMO DIGITAL SCREEN BILAT (03/17/2009) Anatomical Region Laterality Modality Breast Bilateral Other Abstract Provider MAMMO ORDERABLES * CREATININE (02/16/2008) Blood specimen (specimen) Abstract Provider CHEMISTRY ORDERABLES [facility] [address] [place] [address] * MRI BREAST W WO CONT BILAT (02/16/2008) Anatomical Region Laterality Modality Breast Bilateral Other Abstract Provider MR ORDERABLES * MAMMO DIGITAL SCREEN BILAT (02/12/2008) Anatomical Region Laterality Modality Breast Bilateral Other Abstract Provider MAMMO ORDERABLES * NM BONE DENSITY (02/12/2008) Anatomical Region Laterality Modality Other Abstract Provider NM ORDERABLES * (ABNORMAL) PATHOLOGY REPORT (02/03/2006) Abstract Provider PATHOLOGY/CYTOLOGY O RDERABLES Performing Organization Address [facility] Co de Phone Number [facility] documented in this encounter Visit Diagnoses Not on filedocumented in this encounter Care Teams General Engineering Teacher Relationship Specialty Start Date End Date Ziggy Harding MD [address] [address] [place] [address] PCP - General 03/17/09 documented as of this encounter
--- OUTSIDE RECORDS SUMMARY | 2024-10-24 12:56 | XMS_ITS | Encounter Summary ---
Author Organization [facility] Address [address] [place] [address] Care Team Providers Care Car Dealer Name Role Phone Ziggy Harding MD Primary Care Provider [phone] Reason for Referral * Outpatient Services (Routine) - Closed Specialty Diagnoses / Procedures Referred By Contac t Referred To Contact Diagnoses Breast cancer screening, high risk patient Procedures MAMMO DIGITAL SCREEN BILAT [facility] [address] [place] [address] Referral ID Status Reason Start Date Expiration Date Visits Re quested Visits Authorized [id number] Closed 05/20/2014 06/20/2015 1 1 Encounter Details Date Type Department Care Team (Late st Contact Info) Description 05/20/2014 Orders Only [facility] [address] [place] [address] Stormy Brown RN ADH (Primary Dx) Social History Tobacco Use Types Packs/Day Years [...] of this encounter Results * MAMMO DIGITAL SCREEN [...] ADH- Primary Screening mammogram for high-risk patient ADH Screening mammogram for high-risk patient documented in this encounter Care Teams Car Dealer Relationship Specialty Start Date End Date Ziggy Harding MD [address] [place] [address] [place] [address] PCP - General 03/17/09 documented as of this encounter
--- OUTSIDE RECORDS SUMMARY | 2024-10-24 12:56 | XMS_ITS | Encounter Summary ---
Author Organization [facility] Address [address] [place] [address] Care Team Providers Care Personnel Administrator Name Role Phone Ziggy Harding MD Primary Care Provider [phone] Reason for Visit * Reason Comments Follow Up ADH Encounter Details Date Type Department Care Team (Late st Contact Info) Description 07/23/2011 11:15 AM CDT Office Visit [facility] Cancer and Breast Med Onc [address] [place] [address] Jo Sigala MD [address] [place] [address] [place] [id number] ADH Social History Tobacco Use Types Packs/Day Years [...] Sign Reading Time Taken Comments Blood Pressure 136/75 07/23/2011 11:19 AM CDT Pulse 65 07/23/2011 11:19 AM CDT Temperature 36.7 ??C (98.1 ??F) 07/23/2011 11:19 AM C DT Respiratory Rate 16 07/23/2011 11:19 AM CDT Oxygen Saturation - - Inhaled Oxygen Concentration - - Weight 63.5 kg (140 lb) 07/23/2011 11:19 AM CDT Height 152.4 cm (5') 07/23/2011 11:19 AM CDT Body Mass Index 27.34 07/23/2011 11:19 AM CDT documented in this encounter Progress Notes * Jo Sigala MD - 07/23/2011 11:26 AM CDT Name: MADIE MCCABE : 1945 VIRI: 07/23/2011 Diagnosis: ADH Treatment: EVISTA x 5 years History: MADIE MCCABE is a 65 y.o. woman with ADh who has been on EVISTA for 5 years. She is doing well and has no complaints. Her mammogram was negative in March . She saw Dr. Aguirre at that timeas well. Gaining weight. Nighttime snacking. PMH: Past Medical History Diagnosis Date ??? Atypical hyperplasia of breasts ??? Arthritis ??? Diverticular disease h/o SH: History Social History ??? Marital Status: Spouse Name: N/A Number of Children: 1 ??? Years of Education: N/A Occupational History ??? works at [employer] Social History Main Topics ??? Smoking status: Never Smoker ??? Smokeless tobacco: Never Used ??? Alcohol Use: No rarely ??? Drug Use: No ??? Sexually Active: Other Topics Concern ??? Not on file Social History Narrative ??? No narrative on file Works at [employer]; walks 10,000 steps, osteopenic OB History Grav Para Term Abortions TAB SAB Ect Mult Living 1 1 Obstetric Comments Colonoscopy due (had polyp) BMD: January 2008 osteopenia Age @ onset of menses:11 Age @ first live : 38 Menopause: 48 FH: Family History Problem Relation Age of Onset ??? Colon Cancer Brother age 73y ??? Healthy Daughter ??? Other Mother in 90s ??? Other Father in 50s ??? Healthy Brother ROS: General- no fevers, chills, weight loss or gain Skin- no rash, itching, skin changes, HEENT: - no headaches vertigo, lightheadedness, double vision, HEART - no palpitations, syncope, COVARRUBIAS , no MA, CVA LUNGS- no pleuritic pain, SOB, wheezing, cough GI - no appetite chenge, abd pain, heartburn,N/V/C/D - no urgency, frequency, dysuria MUSK/SKEL- no muscles, joints or bone pain. Neuro - no sensory/motor disturbances Psych- no anxiety, depression Allergic- no reactions to drugs, food Endocrine no DM, hypothyroid, or bleeding, easy bruising Medications: Current outpatient prescriptions Medication Sig Dispense Refill ??? ozqpardxtvpbn-utlwlvof-xsrbimjjep (FIORICET) 325-40-50 mg Oral tablet Take 1 Tab by mouth every4 hours as needed. ??? ipratropium bromide (ATROVENT) 0.03 % Both Nostril [place] Administer 2 Sprays in each nostril 2 times daily. ??? FEXOFENADINE HCL (ARELI PO) Take by mouth. ??? MONTELUKAST SODIUM (SINGULAIR PO) Take by mouth. Allergies: No Known Allergies Physical Exam: GENERAL: Well developed, well nourished female. Body mass index is 27.34 kg/(m^2). No cyanosis, clubbing or edema. HEENT: Normal cephalic, atraumatic. No thyroidmegaly; trachea central; no scleral icterus; conjunctiva pink; no lacrimal stenosis OP: clear without exudates or erythema, MMM LNs: No preauricular, anterior or posterior cervical, supra or infraclavicular LAD HEART: RRR without mrg; no S3 LUNG: Good expansion. CTA b/l without wheezes, crackles, rhonchi or rales BREASTS: RIGHT: no masses, skin changes, nipple inversion, erythema LEFT: no masses, skin changes, nipple inversion, erythema; cystic centrally Axilla: no LAD B/L. ABD: soft, nontender, nondistended. No HSM, no inguinal LAD EXTR: no lower extremity edema or rashes; FROM all extremities Neurologic exam grossly intact. Assessment and Plan: Problem ADH KATE patient February 2006 biopsy LEFT breast, completed 5 years 201003/08/06 EVISTA chemoprevention x 5 years Tiana 5.2% and 18.5% ADH - Jo Sigala MD 07/23/11 11:25 AM Signed ROV 1 year mammo in February Osteopenia Diverticular disease Allergies - on meds ROV prn (has OBG, surgeon, chiropractor, breast surgeon) documented in this encounter Miscellaneous Notes * Assessment & Plan Note - Jo Sigala MD - 07/23/2011 11:25 AM CDT Associated Problem(s): ADH ROV 1 year or prn mammo in February documented in this encounter Plan of Treatment Not on file documented as of this encounter Visit Diagnoses Diagnosis ADH Screening mammogram for high-risk patient documented in this encounter Care Teams Personnel Administrator Relationship Specialty Start Date End Date Ziggy Harding MD [address] [place] [address] [place] [address] PCP - General 03/17/09 documented as of this encounter
--- OUTSIDE RECORDS SUMMARY | 2024-10-24 12:56 | XMS_ITS | Encounter Summary ---
Author Organization [facility] Address [address] [place] [address] Care Team Providers Care Coat Operator Name Role Phone Ziggy Harding MD Primary Care Provider Reason for Referral * Outpatient Services (Routine) - Closed Specialty Diagnoses / Procedures Referred By Contac t Referred To Contact Diagnoses Breast mass, left Procedures MAMMO BREAST US Bindu Aguirre MD [address] [place] [address] Referral ID Status Reason Start Date Expiration Date Visits Re quested Visits Authorized [id number] Closed 05/03/2014 06/03/2015 1 1 Reason for Visit * Reason Comments Breast Exam, Routine, No Symptoms annual ck up High Risk Encounter Details Date Type Department Care Team (Late st Contact Info) Description 05/03/2014 9:00 AM CDT [facility] [address] [place] [address] Bindu Aguirre MD [address] [place] [address] Breast cancer screening, high risk patient (Primary Dx); ADH; Breast mass, left Social History Tobacco Use Types Packs/Day Years [...] Sign Reading Time Taken Comments Blood Pressure 125/71 05/03/2014 8:32 AM CDT Pulse 78 05/03/2014 8:32 AM CDT Temperature - - Respiratory Rate - - Oxygen Saturation - - Inhaled Oxygen Concentration - - Weight 64.4 kg (142 lb) 05/03/2014 8:32 AM CDT Height 154.9 cm (5' 1 ) 05/03/2014 8:32 AM CDT Body Mass Index 26.83 05/03/2014 8:32 AM CDT documented in this encounter Progress Notes * Bindu Aguirre MD - 05/03/2014 9:37 AM CDT Love Catherine is a 68 y.o. female who comes in for her annual visit. She has a previous diagnosisof atypical ductal hyperplasia, and she completed 5 years of chemoprevention in 2010. She is unsureas to when her next colonoscopy is due. She has a prolapsed bladder, and is seeing gynecology for this. At this time no surgery is planned. It is not causing her any incontinence. Her complete 10 point review of systems is negative Last mammogram was 04-02-2013 No Known Allergies OB History Grav Para [...] Outpatient Prescriptions Medication Sig Dispense Refill ??? PROPYLENE GLYCOL/PEG 400 (SYSTANE OP) by Ophthalmic route. ??? Cetirizine (ZYRTEC) 10 mg Oral Cap Take by mouth. ??? pravastatin (PRAVACHOL) 20 mg Oral tablet Take 20 mg by mouth Daily LATE. ??? FLAXSEED OIL (OMEGA 3 ORAL) Take by mouth. ??? NAPROXEN SODIUM (ALEVE ORAL) Take by mouth 1 time daily as needed. ??? cftswsfebqivf-sigozuus-prjrprgzdp (FIORICET) 325-40-50 mg Oral tablet Take 1 [...] Education: N/A Occupational History ??? works at [employer] Social History Main Topics ??? Smoking status: Never Smoker ??? Smokeless tobacco: Never Used ??? Alcohol Use: No Comment: rarely ??? Drug Use: No ??? Sexually [...] Ovarian Cancer Neg Hx On examination: BP 125/71 Pulse 78 Ht 5' 1 (1.549 m) Wt 142 lb (64.411 kg) BMI 26.84 kg/m2 Body mass index is 26.84 kg/(m^2). Well-developed, well-nourished female. No cyanosis, no anemia. Breast exam: Symmetric, no erythema, no peau d'orange, no Paget's disease. No masses are felt in right breast. No nipple discharge. There is a firm nodular area 4 x 4 centimeters upper-outer quadrantleft breast Lymphatics: No axillary, supraclavicular or cervical adenopathy. Head and neck: Normocephalic, atraumatic, trachea central, no thyromegaly, no neck masses. Back: No lesions Chest: Good expansion, clear to auscultation and percussion, no rales or rhonchi. Cardiovascular: [place] undisplaced, normal first and second heart sounds, no murmurs. Abdomen: Soft, nontender, no masses, no hepatosplenomegaly. Extremities: Full range of motion both upper extremities, no edema. Neurologic exam: Grossly intact. Assessment #1 nodular area left breast #2 she had a screening mammogram today #3 I reviewed the images and they appear to be negative #4 requires ultrasound left #5 she is going to check with her GI, Dr. Osorio as to when her colonoscopy is due #6 I will see her annually #7 the ultrasound was done which showed dense breast tissue only. I looked at the images myself, with the radiologist, and discussed the area with the radiologist. Fibrocystic change. documented in this encounter Plan of Treatment Not on file documented as of this encounter Results * MAMMO BREAST US [...] recommended. Dictated from [facility] Procedure Note Willa [...] ADH- Primary Screening mammogram for high-risk patient Breast mass, left Lump or mass in breast Breast mass, left Lump or mass in breast documented in this encounter Care Teams Coat Operator Relationship Specialty Start Date End Date Ziggy Harding MD [address] [place] [address] [place] [address] PCP - General 03/17/09 documented as of this encounter
--- OUTSIDE RECORDS SUMMARY | 2024-10-24 12:57 | XMS_ITS | Encounter Summary ---
Author Organization [facility] Address [address] [place] [address] Care Team Providers Care Set Up Mechanic Heading Machines Name Role Phone Ziggy Harding MD Primary Care Provider [phone] Reason for Referral * Outpatient Services (Routine) - Closed Specialty Diagnoses / Procedures Referred By Contac t Referred To Contact Diagnoses Breast cancer screening, high risk patient Procedures MAMMO DIGITAL DIAG BILAT Bindu Aguirre MD [address] [place] [address] Referral ID Status Reason Start Date Expiration Date Visits Re quested Visits Authorized [id number] Closed 03/27/2011 09/23/2011 1 1 Encounter Details Date Type Department Care Team (Late st Contact Info) Description 03/27/2011 Orders Only [facility] BREAST SURGERY - [place] [facility] [address] [place] [address] Bindu Aguirre MD [address] [place] [address] ADH (Primary Dx) Social History Tobacco Use Types Packs/Day Years Used Date Smoking Tobacco: Never Alcohol Use Standard Drinks/Week Comments [...] patient documented in this encounter Care Teams Set Up Mechanic Heading Machines Relationship Specialty Start Date End Date Ziggy Harding MD [address] [place] [address] [place] [address] PCP - General 03/17/09 documented as of this encounter
--- OUTSIDE RECORDS SUMMARY | 2024-10-24 12:57 | XMS_ITS | Encounter Summary ---
Author Organization [facility] Address [address] [place] [address] Care Team Providers Care Microsoft Bi Architect Name Role Phone Ziggy Harding MD Primary Care Provider [phone] Reason for Visit * Reason Comments Follow Up Other evista refill Encounter Details Date Type Department Care Team (Late st Contact Info) Description 07/21/2009 2:00 PM CDT Office Visit [facility] Cancer and Breast Med Onc [address] [place] [address] Jo Sigala MD [address] [place] [address] [place] [address] ADH (Primary Dx) Social History Tobacco Use [...] Sign Reading Time Taken Comments Blood Pressure 140/75 07/21/2009 1:59 PM CDT Pulse 76 07/21/2009 1:59 PM CDT Temperature 36.9 ??C (98.5 ??F) 07/21/2009 1:59 PM CD T Respiratory Rate 16 07/21/2009 1:59 PM CDT Oxygen Saturation - - Inhaled Oxygen Concentration - - Weight 63.5 kg (140 lb) 07/21/2009 1:59 PM CDT Height 152.4 cm (5') 07/21/2009 1:59 PM CDT Body Mass Index 27.34 07/21/2009 1:59 PM CDT documented in this encounter Progress Notes * Jo Sigala MD - 07/21/2009 2:06 PM CDT Kate Patient Initial visit Name: Love Catherine : 1945 VIRI: 07/21/2009 Diagnosis: ADH Treatment: EVISTA since 2005 History: Love Catherien is a 63 y.o. woman with ADh who has been on EVISTA for 3 1/2 years. She isdoing well and has no complaints. PMH: Past Medical History Diagnosis Date ??? Atypical Hyperplasia of Breasts ??? Arthritis SH: History Social History ??? Marital Status: Spouse Name: N/A Number of Children: 1 ??? Years of Education: N/A Occupational History ??? works at [employer] Social History Main Topics ??? Tobacco Use: Never ??? Alcohol Use: No rarely ??? Drug Use: No ??? Sexually Active: Other Topics Concern ??? Not on file Social History Narrative ??? No narrative on file Works at [employer]; walks 10,000 steps, osteopenic Obstetric History The patient has not been asked about . Colonoscopy due (had polyp) BMD: January 2008 osteopenia FH: Family History Problem Relation ??? Colon Cancer Brother age 73y ??? Healthy Daughter ??? Other Mother in 90s ??? Other Father in 50s ??? Healthy Brother ROS: General- no fevers, chills, weight loss or gain Skin- no rash, itching, skin changes, HEENT: - no headaches vertigo, lightheadedness, double vision, HEART - no palpitations, syncope, COVARRUBIAS , no ND, CVA LUNGS- no pleuritic pain, SOB, wheezing, cough GI - no appetite chenge, abd pain, heartburn,N/V/C/D - no urgency, frequency, dysuria MUSK/SKEL- no muscles, joints or bone pain. Neuro - no sensory/motor disturbances Psych- no anxiety, depression Allergic- no reactions to drugs, food Endocrine no DM, hypothyroid, or bleeding, easy bruising Medications: Current outpatient prescriptions Medication Sig Dispense Refill ??? FEXOFENADINE HCL (ARELI PO) Take by mouth. ??? MONTELUKAST SODIUM (SINGULAIR PO) Take by mouth. ??? CALCIUM PO Take by mouth. ??? VITAMIN E PO Take by mouth. ??? raloxifene (EVISTA) 60 mg Oral Tab Take by mouth. ??? Loteprednol Etabonate (ALREX) 0.2 % OP DrpS by Ophthalmic route. Allergies: No Known Allergies Physical Exam: GENERAL: [...] LEFT: no masses, skin changes, nipple inversion, erythema Axilla: no LAD B/L. ABD: soft, nontender, nondistended. No HSM, no inguinal LAD EXTR: no lower extremity edema or rashes; FROM all extremities Neurologic exam grossly intact. Assessment and Plan: Problem Osteopenia ADH Overview Note: KATE patient February 2006 biopsy LEFT breast 03/08/06 EVISTA chemoprevention Tiana 5.2% and .5% ADH - Jo Sigala MD 07/21/09 02:10 PM Addended IOV with me (KATE) On HRT prior to bx On Evista 3 1/2 yrs Doing well PLAN: cont Evista ROV 1 year Mammogram in February with DMR documented in this encounter Miscellaneous Notes * Assessment & Plan Note - Jo Sigala MD - 07/21/2009 2:08 PM CDT Associated Problem(s): ADH IOV with me (KATE) On HRT prior to bx On Evista 3 1/2 yrs Doing well PLAN: cont Evista ROV 1 year Mammogram in February with DMR documented in this encounter Plan of Treatment Not on file documented as of this encounter Visit Diagnoses Diagnosis ADH- Primary Screening mammogram for high-risk patient documented in this encounter Care Teams Microsoft Bi Architect Relationship Specialty Start Date End Date Ziggy Harding MD [address] [place] [address] [place] [address] PCP - General 03/17/09 documented as of this encounter
--- OUTSIDE RECORDS SUMMARY | 2024-10-24 12:57 | XMS_ITS | Encounter Summary ---
Author Organization [facility] Address [address] [place] [address] Care Team Providers Care Curb Setter Name Role Phone Ziggy Harding MD Primary Care Provider [phone] Encounter Details Date Type Department Care Team (Late st Contact Info) Description 03/08/2010 Abstract [facility] BREAST SURGERY - [place] [facility] [address] [place] [address] Bindu Aguirre MD [address] [place] [address] Social History Tobacco Use Types Packs/Day Years [...] on filedocumented in this encounter Care Teams Curb Setter Relationship Specialty Start Date End Date Ziggy Harding MD [address] [place] [address] [place] [address] PCP - General 03/17/09 documented as of this encounter
--- OUTSIDE RECORDS SUMMARY | 2024-10-24 12:57 | XMS_ITS | Encounter Summary ---
Author Organization [facility] Address [address] [place] [address] Care Team Providers Care Slab Stripper Name Role Phone Ziggy Harding MD Primary Care Provider [phone] Reason for Visit * Reason Comments Breast Exam, Routine, No Symptoms H/O at ypical hyperplasia Encounter Details Date Type Department Care Team (Late st Contact Info) Description 03/21/2010 10:00 AM CDT Office Visit [facility] [address] [facility] [address] [place] [id number] Bindu Aguirre MD [address] [place] [address] ADH (Primary Dx) Social History Tobacco Use [...] Sign Reading Time Taken Comments Blood Pressure 112/80 03/21/2010 11:08 AM CDT Pulse - - Temperature - - Respiratory Rate - - Oxygen Saturation - - Inhaled Oxygen Concentration - - Weight 63 kg (139 lb) 03/21/2010 11:08 AM CDT Height 152.4 cm (5') 03/21/2010 11:08 AM CDT Body Mass Index 27.15 03/21/2010 11:08 AM CDT documented in this encounter Progress Notes * Bindu Aguirre MD - 03/21/2010 11:45 AM CDT Love Catherine is a 64 y.o. female procedure for followup examination. Her history as listed below. She has a history of atypical ductal hyperplasia. She has been on Evista for prevention. She has no problems reported. She is up-to-date with her colonoscopy. Complete 10 point review of systems negative. No Known Allergies OB History Grav Para Term Abortions TAB SAB Ect Mult Living 1 1 Obstetric Comments BMD: January 2008 osteopenia Age @ onset of menses:11 Age @ first live : 38 Menopause: 48 Patient Active Problem List Diagnoses Code ??? ADH V76.11B ??? Osteopenia 733.90X ??? Diverticular Disease 562.10Y Current outpatient prescriptions Medication Sig Dispense Refill ??? TRIAMCINOLONE ACETONIDE (NASACORT BOTH NOSTRIL) Administer in each nostril. ??? raloxifene (EVISTA) 60 mg Oral Tab Take 1 Tab by mouth daily. 90 Tab 3 ??? FEXOFENADINE HCL (ARELI PO) Take by mouth. ??? MONTELUKAST SODIUM (SINGULAIR PO) Take by mouth. ??? Loteprednol Etabonate (ALREX) 0.2 % OP DrpS by Ophthalmic route. Past Medical History Diagnosis Date ??? Atypical Hyperplasia of Breasts ??? Arthritis ??? Diverticular Disease h/o Past Surgical History Procedure Date ??? Hx breast biopsy 02/03/2006 left breast excision History Social History ??? Marital Status: Spouse Name: N/A Number of Children: 1 ??? Years of Education: N/A Occupational History ??? works at [employer] Social History Main Topics ??? Tobacco Use: Never ??? Alcohol Use: No rarely ??? Drug Use: No Family History Problem Relation ??? Colon Cancer Brother age 73y ??? Healthy Daughter ??? Other Mother in 90s ??? Other Father in 50s ??? Healthy Brother On examination: BP 112/80 Ht 5' (1.524 m) Wt 139 lb (63.05 kg) Body mass index is 27.15 kg/(m^2). Well-developed, well-nourished female. No cyanosis, no [...] and percussion, no rales or rhonchi. Cardiovascular: [place] undisplaced, normal first and second heart sounds, no murmurs. Abdomen: Soft, nontender, no masses, no hepatosplenomegaly. Extremities: Full range of motion both upper extremities, no edema. Neurologic exam: Grossly intact. Assessment I personally reviewed her mammograms, and discussed them with the radiologist. BI-RADS one. Benign,lifetime risk 18.5%, insufficient for MRI. Continue annual followup. documented in this encounter Plan of Treatment Not on file documented as of this encounter Visit Diagnoses Diagnosis ADH- Primary Screening mammogram for high-risk patient documented in this encounter Care Teams Slab Stripper Relationship Specialty Start Date End Date Ziggy Harding MD [address] [place] [address] [place] [phone] PCP - General 03/17/09 documented as of this encounter
--- OUTSIDE RECORDS SUMMARY | 2024-10-24 12:57 | XMS_ITS | Encounter Summary ---
Author Organization [facility] Address [address] [place] [address] Care Team Providers Care Child Care Leader Name Role Phone Ziggy Harding MD Primary Care Provider [phone] Encounter Details Date Type Department Care Team (Late st Contact Info) Description 07/11/2010 Abstract [facility] BREAST SURGERY - [facility] [address] [facility] [address] [place] [address] Bindu Aguirre MD [address] [place] [address] Social History Tobacco Use Types Packs/Day Years [...] SCREEN BILAT W OR WO CAD Routine 03/21/2010 documented in this encounter Results * MAMMO DIGITAL SCREEN BILAT (03/21/2010) Anatomical Region Laterality Modality Breast Bilateral Other Bindu Aguirre MD MAMMO ORDERABLES documented in this encounter Visit Diagnoses Not on filedocumented in this encounter Care Teams Child Care Leader Relationship Specialty Start Date End Date Ziggy Harding MD [address] [place] [address] [place] [phone] PCP - General 03/17/09 documented as of this encounter
--- OUTSIDE RECORDS SUMMARY | 2024-10-24 12:57 | XMS_ITS | Encounter Summary ---
Author Organization [facility] Address [address] [place] [address] Care Team Providers Care Marketing Representative Name Role Phone Ziggy Harding MD Primary Care Provider [phone] Reason for Visit * Reason Comments Follow Up ADH Encounter Details Date Type Department Care Team (Late st Contact Info) Description 07/23/2010 11:15 AM CDT Office Visit [facility] Cancer and Breast Med Onc [address] [place] [address] Jo Sigala MD [address] [place] [address] [place] [phone] ADH (Primary Dx) Social History Tobacco Use [...] Sign Reading Time Taken Comments Blood Pressure 133/69 07/23/2010 11:26 AM CDT Pulse 67 07/23/2010 11:26 AM CDT Temperature 37 ??C (98.6 ??F) 07/23/2010 11:26 AM CDT Respiratory Rate 16 07/23/2010 11:26 AM CDT Oxygen Saturation - - Inhaled Oxygen Concentration - - Weight 61.7 kg (136 lb) 07/23/2010 11:26 AM CDT Height 152.4 cm (5') 07/23/2010 11:26 AM CDT Body Mass Index 26.56 07/23/2010 11:26 AM CDT documented in this encounter Progress Notes * Jo Sigala MD - 07/23/2010 11:26 AM CDT Name: Love Catherine : 1945 VIRI: 07/23/2010 Diagnosis: ADH Treatment: EVISTA since 2005 History: Love Catherine is a 64 y.o. woman with ADh who has been on EVISTA for 41/2 years. She is doing well and has no complaints. Her mammogram was negative in February. She saw Dr. Aguirre at that time as well. As last year she started seeing a chiropractor and is now taking multiple supplements because of her high copper . She did have a rash from this and was told her iron and copper were leaving her body . PMH: Past Medical History Diagnosis Date ??? Atypical Hyperplasia of Breasts ??? Arthritis ??? Diverticular Disease h/o SH: History Social History ??? Marital Status: Spouse Name: N/A Number of Children: 1 ??? Years of Education: N/A Occupational History ??? works at [employer] Social History Main Topics ??? Tobacco Use: Never ??? Alcohol Use: No rarely ??? Drug Use: No ??? Sexually Active: Other Topics Concern ??? Not on file Social History Narrative ??? No narrative on file Works at [employer]; walks 10,000 steps, osteopenic OB History Grav Para Term Abortions TAB SAB Ect Mult Living 1 1 Obstetric Comments Colonoscopy due (had polyp) BMD: January 2008 osteopenia Age @ onset of menses:11 Age @ first live : 38 Menopause: 48 FH: Family History Problem Relation ??? Colon Cancer Brother age 73y ??? Healthy Daughter ??? Other Mother in 90s ??? Other Father in 50s ??? Healthy Brother ROS: General- no fevers, chills, weight loss or gain Skin- no rash, itching, skin changes, HEENT: - no headaches vertigo, lightheadedness, double vision, HEART - no palpitations, syncope, COVARRUBIAS , no PR, CVA LUNGS- no pleuritic pain, SOB, wheezing, cough GI - no appetite chenge, abd pain, heartburn,N/V/C/D - no urgency, frequency, dysuria MUSK/SKEL- no muscles, joints or bone pain. Neuro - no sensory/motor disturbances Psych- no anxiety, depression Allergic- no reactions to drugs, food Endocrine no DM, hypothyroid, or bleeding, easy bruising Medications: Current outpatient prescriptions Medication Sig Dispense Refill ??? raloxifene (EVISTA) 60 mg Oral Tab Take 1 Tab by mouth daily. 90 Tab 3 ??? FEXOFENADINE HCL (ARELI PO) Take by mouth. ??? MONTELUKAST SODIUM (SINGULAIR PO) Take by mouth. ??? TRIAMCINOLONE ACETONIDE (NASACORT BOTH NOSTRIL) Administer in each nostril. ??? Loteprednol Etabonate (ALREX) 0.2 % OP DrpS by Ophthalmic route. Allergies: No Known Allergies Physical Exam: GENERAL: Well developed, well nourished female. Body mass index is 26.56 kg/(m^2). No cyanosis, clubbing or edema. HEENT: [...] ADH KATE patient February 2006 biopsy LEFT breast 03/08/06 EVISTA chemoprevention Tiana 5.2% and 18.5% ADH - Jo Sigala MD 07/23/10 11:32 AM Addended Mammogram in February Evista 4 1/2 yrs - due to end in February On supplements from chiropractor - had rash - told it was copper leaving body ROV 1 year cystic left breast Refill Evista documented in this encounter Miscellaneous Notes * Assessment & Plan Note - Jo Sigala MD - 07/23/2010 11:25 AM CDT Associated Problem(s): ADH Mammogram in February Evista 4 1/2 yrs - due to end in February On supplements from chiropractor - had rash - told it was copper leaving body ROV 1 year cystic left breast documented in this encounter Plan of Treatment Not on file documented as of this encounter Visit Diagnoses Diagnosis ADH- Primary Screening mammogram for high-risk patient documented in this encounter Care Teams Marketing Representative Relationship Specialty Start Date End Date Ziggy Harding MD [address] [place] [address] [place] [address] PCP - General 03/17/09 documented as of this encounter
--- OUTSIDE RECORDS SUMMARY | 2024-10-24 12:57 | XMS_ITS | Encounter Summary ---
Author Organization [facility] Address [address] [place] [address] Care Team Providers Care Long Wall Shear Operator Name Role Phone Ziggy Harding MD Primary Care Provider [phone] Reason for Visit * Reason Onset Date Comments Medication Refill 10/23/2009 Encounter Details Date Type Department Care Team (Late st Contact Info) Description 10/23/2009 Telephone [facility] Cancer and Breast Med Onc [address] [place] [address] Jo Sigala MD [address] [place] [address] [place] [address] Medication Refill Social History Tobacco Use Types Packs/Day Years Used Date Smoking Tobacco: Never Alcohol Use Standard Drinks/Week Comments No 0 (1 standard drink = 0.6 oz pur e alcohol) rarely Sex and Gender Information Value Date Recorded Sex Assigned at Not on file Gender Identity Not on file Sexual Orientation Not on file documented as of this encounter Miscellaneous Notes * Telephone Encounter - Jo Melendez - 10/23/2009 3:23 PM CST Per pt request, called pharmacy at [phone]. Mail order Rx for Evista did not come. Pt [id number] day supply called to local pharmacy. Left message on recorder. THCARE LIAISON documented in this encounter Plan of Treatment Not on file documented as of this encounter Visit Diagnoses Not on filedocumented in this encounter Care Teams Long Wall Shear Operator Relationship Specialty Start Date End Date Ziggy Harding MD [address] [place] [address] [place] [address] PCP - General 03/17/09 documented as of this encounter
--- OUTSIDE RECORDS SUMMARY | 2024-10-24 12:57 | XMS_ITS | Encounter Summary ---
Author Organization [facility] Address [address] [place] [address] Care Team Providers Care Ceramic Sprayer Name Role Phone Ziggy Harding MD Primary Care Provider [phone] Encounter Details Date Type Department Care Team (Late st Contact Info) Description 07/19/2009 Abstract [facility] Cancer and Breast Med Onc [address] [place] [address] Jo Sigala MD [address] [place] [address] [place] [address] Social History Tobacco Use Types Packs/Day Years Used Date Smoking Tobacco: Never Alcohol Use Standard Drinks/Week Comments Yes 0 (1 standard drink = 0.6 oz pur e alcohol) rarely Sex and Gender Information Value Date Recorded Sex Assigned at Not on file Gender Identity Not on file Sexual Orientation Not on file documented as of this encounter Plan of Treatment Not on file documented as of this encounter Visit Diagnoses Not on filedocumented in this encounter Care Teams Ceramic Sprayer Relationship Specialty Start Date End Date Ziggy Harding MD [address] [place] [address] [place] [address] PCP - General 03/17/09 documented as of this encounter
--- OUTSIDE RECORDS SUMMARY | 2024-10-24 12:57 | XMS_ITS | Encounter Summary ---
Author Organization [facility] Address [address] [place] [address] Care Team Providers Care Commercial Real Estate Lender Name Role Phone Ziggy Harding MD Primary Care Provider [phone] Reason for Referral * Outpatient Services (Routine) - Closed Specialty Diagnoses / Procedures Referred By Contac t Referred To Contact Diagnoses Diffuse cystic mastopathy Procedures MAMMO DIGITAL DIAG BILAT Bindu Aguirre MD [address] [place] [address] Referral ID Status Reason Start Date Expiration Date Visits Re quested Visits Authorized [id number] Closed 02/15/2011 08/14/2011 1 1 Encounter Details Date Type Department Care Team (Late st Contact Info) Description 02/14/2011 Orders Only [facility] BREAST SURGERY - [facility] [address] [place] [address] Bindu Aguirre MD [address] [place] [address] Diffuse cystic mastopathy (Primary Dx) Social History Tobacco Use Types [...] encounter Results * MAMMO DIGITAL DIAG BILAT (03/27/2011 8:02 AM CDT) Anatomical Region Laterality Modality Breast Bilateral Mammography Narrative 03/27/2011 12:00 PM CDT BILATERAL DIAGNOSTIC DIGITAL MAMMOGRAMS WITH COMPUTER ASSISTED DIAGNOSIS DATE OF EXAM: 03/27/11 ?? History: The patient had a benign biopsy of the left breast. Technique: Bilateral full field digital diagnostic mammograms were obtained and compared with previous studies dated February 2010 and February 2009. ?? BREAST COMPOSITION: Scattered fibroglandular densities. Findings: On the initial images, an asymmetry is identified in the posterior upper aspect of the right breast on the mediolateral oblique projection. This area does not persist on additional views. No other new dominant masses, areas of asymmetry or suspicious clustered microcalcifications are identified within either breast. CAD was utilized. OVERALL ASSESSMENT: ??BIRADS category 1 - Negative Recommendation: Annual mammography is recommended. Procedure Note Willa Das - 03/27/2011 BILATERAL DIAGNOSTIC DIGITAL MAMMOGRAMS WITH COMPUTER ASSISTED DIAGNOSIS DATE OF EXAM: 03/27/11 History: The patient had a benign biopsy of the left breast. Technique: Bilateral full field digital diagnostic mammograms wereobtained and compared with previous studies dated February 2010 and February 2009. BREAST COMPOSITION: Scattered fibroglandular densities. Findings: On the initial images, an asymmetry is identified in theposterior upper aspect of the right breast on the mediolateral obliqueprojection. This area does not persist on additional views. No other newdominant masses, areas of asymmetry or suspicious clusteredmicrocalcifications are identified within either breast. CAD wasutilized. OVERALL ASSESSMENT: BIRADS category 1 - Negative Recommendation: Annual mammography is recommended. Bindu Aguirre MD MAMMO ORDERABLES documented in this encounter Visit Diagnoses Diagnosis Diffuse cystic mastopathy- Primary Diffuse cystic mastopathy documented in this encounter Care Teams Commercial Real Estate Lender Relationship Specialty Start Date End Date Ziggy Harding MD [address] [place] [address] [place] [address] PCP - General 03/17/09 documented as of this encounter
--- OUTSIDE RECORDS SUMMARY | 2024-10-24 12:57 | XMS_ITS | Encounter Summary ---
Author Organization [facility] Address [address] [place] [address] Care Team Providers Care Talent Acquisition Assistant Name Role Phone Ziggy Harding MD Primary Care Provider [phone] Reason for Referral * Outpatient Services (Routine) - Closed Specialty Diagnoses / Procedures Referred By Chte nicholson Referred To Contact Diagnoses Diffuse cystic mastopathy Procedures MAMMO DIGITAL DIAG Bindu Verduzco MD [address] [place] [address] Referral ID Status Reason Start Date Expiration Date Visits Re quested Visits Authorized [id number] Closed 02/15/2011 08/14/2011 1 1 Reason for Visit * Outpatient Services (Routine) - Closed Specialty Diagnoses / Procedures Referred By Chet nicholson Referred To Contact Diagnoses Diffuse cystic mastopathy Procedures MAMMO DIGITAL DIAG Bindu Verduzco MD [address] [place] [address] Referral ID Status Reason Start Date Expiration Date Visits Re quested Visits Authorized [id number] Closed 02/15/2011 08/14/2011 1 1 Encounter Details Date Type Department Care Team (Latest Contact Info) Description 03/27/2011 7:50 AM CDT - 03/27/2011 11:59 PM CDT Hospital Encounter [facility] [address] [place] [address] Bindu Aguirre MD [address] [place] [address] Discharge Disposition: Home or Self Care Social [...] 10 mg by mouth daily at bedtime. ipratropium bromide (ATROVENT) 0.03 % Both Nostril [place] Administer 2 Sprays in each nostril 2 times daily. 04/02/2013 FEXOFENADINE HCL (ARELI PO) Take by mouth. 04/02/2013 documented as of this encounter Plan of Treatment Not on file documented as of this encounter Procedures Procedure Name Priority Date/Time Associated Diagnosis Comments MAMMO DIAGNOSTIC BILATERAL W OR WO CAD Routine 03/27/2011 8:02 AM CDT Diffuse cystic mastopathy documented in this encounter Results * MAMMO [...] encounter Visit Diagnoses Diagnosis Diffuse cystic mastopathy documented in this encounter Care Teams Talent Acquisition Assistant Relationship Specialty Start Date End Date Ziggy Harding MD [address] [place] [address] [place] [address] PCP - General 03/17/09 documented as of this encounter
--- OUTSIDE RECORDS SUMMARY | 2024-10-24 12:57 | XMS_ITS | Encounter Summary ---
Author Organization [facility] Address [address] [place] [address] Care Team Providers Care Advanced Manager Name Role Phone Ziggy Harding MD Primary Care Provider [phone] Reason for Visit * Reason Comments High Risk annual ck up Encounter Details Date Type Department Care Team (Late st Contact Info) Description 03/27/2011 9:30 AM CDT Office Visit [facility] [address] [place] [address] Bindu Aguirre MD [address] [place] [address] ADH; Breast cancer screening, high risk patient [...] Sign Reading Time Taken Comments Blood Pressure 160/85 03/27/2011 8:40 AM CDT Pulse - - Temperature - - Respiratory Rate - - Oxygen Saturation - - Inhaled Oxygen Concentration - - Weight 63 kg (139 lb) 03/27/2011 8:40 AM CDT Height 152.4 cm (5') 03/27/2011 8:40 AM CDT Body Mass Index 27.15 03/27/2011 8:40 AM CDT documented in this encounter Progress Notes * Bindu Aguirre MD - 03/27/2011 9:18 AM CDT MADIE MCCABE is a 65 y.o. female Comes in for followup. History of atypical hyperplasia. Completed 5 years of Evista for prevention in 2010. No new problems to report. Complete 10 point review of systems negative. [...] outpatient prescriptions Medication Sig Dispense Refill ??? tvdlbgakvrmzr-zndvzlga-qijuojsxmp (FIORICET) 325-40-50 mg Oral tablet Take 1 Tab by mouth every4 hours as needed. ??? ipratropium bromide (ATROVENT) 0.03 % Both Nostril [place] Administer 2 Sprays in each nostril 2 [...] Education: N/A Occupational History ??? works at [employer] Social History Main Topics ??? Smoking status: Never Smoker ??? Smokeless tobacco: Not on file ??? Alcohol Use: No rarely ??? Drug Use: No ??? Sexually Active: Other Topics Concern ??? Not on file Social History Narrative ??? No narrative on file Family History Problem Relation Age of Onset ??? Colon Cancer Brother age 73y ??? Healthy Daughter ??? Other Mother in 90s ??? Other Father in 50s ??? Healthy Brother On examination: BP 160/85 Ht 5' (1.524 m) Wt 139 lb (63.05 kg) BMI 27.15 kg/m2 Body mass index is 27.15 kg/(m^2). Well-developed, [...] and percussion, no rales or rhonchi. Cardiovascular: [place] undisplaced, normal first and second heart sounds, no murmurs. Abdomen: Soft, nontender, no masses, no hepatosplenomegaly. Extremities: Full range of motion both upper extremities, no edema. Neurologic exam: Grossly intact. Assessment Nothing worrisome on today's examination. Mammogram negative, BI-RADS one bilaterally. Continues torequire annual followup and annual and mammograms because of her high risk status documented in this encounter Plan of Treatment Not on file documented as of this encounter Visit Diagnoses Diagnosis ADH Screening mammogram for high-risk patient documented in this encounter Care Teams Advanced Manager Relationship Specialty Start Date End Date Ziggy Harding MD [address] [address] [place] [address] PCP - General 03/17/09 documented as of this encounter
--- OUTSIDE RECORDS SUMMARY | 2024-10-24 12:58 | XMS_ITS | Continuity of Care Document ---
Author Organization [facility] Address [address] [place] [address] Phone Care Team Providers Care Hook And Eye Machine Operator Name Role Phone Gene Dumont MD Unavailable Unavailable Medications Medication Instructions Dosage Effective Dates (start - stop) Status Comments RANITIDINE 150 MG TABLET 1 BID - A ctive ZYRTEC 10 MG TABLET 1 QHS - Active FEXOFENADINE HCL 180 MG TABLET 1 QAM - Active CYPROHEPTADINE 4 MG TABLET 1 TID - Active IPRATROPIUM 0.03% SPRAY 1 BID - Ac tive Advance Directives Directive Yes / No Effective Date File Name No Information Encounters Encounter Description Practice Location Reason(s) For Visit Diagnoses Date Provider Providers [facility] [address], [place], [place], [id number], tel:[phone] [facility] No Information Tim Mills. [address] [place] [address], [id number] , . tel: [phone] [facility], [address] [place] [address], [id number], tel:[phone] [facility] URTICARIA NECCHRONIC RHINITISNASAL & SINUS DIS NEC 0 Tim Mills. [address] [place] [address], [id number] , . tel: [phone] Family History Family Member Type Diagnosis Age At Onset No Information Payers Payer name Insurance type Covered democrat ID Authoriza tion(s) No Information Social History Type Description Quantity Date Captured Comments Sex Female Smoking Status No Information Chief Complaint And Reason For Visit No Information Reason For Referral Reason For Referral No Information History Of Present Illness Encounter Date Complaint History Of Prese nt Illness No Information Functional Status Date Functional Assessmen t No Information Instructions Date Instruction Additional Infor mation No Information Assessments Type Assessment Date No Information Patient Care Teams Name Effective Dates (start - stop) Status Members No Information
== END 2024-10-17 12:08 | disposition home or self-care (01) ==
PROVIDERS: Emergency Provider Student in an Organized Health Care Education/Training Program
DX: J40 Bronchitis, not specified as acute or chronic (principal); J06.9 Acute upper respiratory infection, unspecified; Z20.822 Contact with and (suspected) exposure to COVID-19; M19.90 Unspecified osteoarthritis, unspecified site; K21.9 Gastro-esophageal reflux disease without esophagitis; G47.30 Sleep apnea, unspecified; E78.5 Hyperlipidemia, unspecified; Z85.828 Personal history of other malignant neoplasm of skin
CPT/HCPCS: 71046; 87637; 99283; A9270